=== PATIENT | female | born 1970 | race Caucasian/White ===

== ENCOUNTER → 2018-08-13 15:27 | Outpatient (CLI) | payer OTHER, SELFPAY ==
--- NOTE | 2018-08-13 15:30 | BI_ITS ---
MAMMOGRAPHY - BILATERAL SCREENING REASON FOR EXAM: Female, 48 years old. Routine annual screening examination. PERTINENT HISTORY: Non-contributory. History of bilateral breast cysts. TECHNIQUE: Digital bilateral breast len (3D mammographic acquisition) in the CC and MLO projections. 2-D mediolateral oblique (MLO) and craniocaudad (CC) views of both breasts were obtained. CAD: Full Field Digital Mammography with Computer Added Detection was performed. COMPARISON: Comparison is made with prior abdomen examination dated May 16, 2016 and April 18, 2015. FINDINGS: Breast Composition: The breasts are heterogeneously dense, which may obscure small masses. There is a 3.2 cm x 4.1 cm well-defined nodule in the superior retroareolar region of the right breast. This also evidence of a 3 cm x 2.6 cm well-defined nodule in the superior retroareolar region of the left breast. The left breast nodule as well as the right breast nodule have increased in size as compared to prior study. Correlation with ultrasound is recommended. No other significant abnormalities are identified. BI/SCREENING MAMM (CAD), BILAT IMPRESSION: Increase in size of the bilateral breast nodules as described. Correlation with ultrasound is recommended. ASSESSMENT CATEGORY: BIRADS Category 0: Incomplete. Need additional imaging evaluation. A letter regarding these results will be sent to the patient by the facility within 30 days. Approximately 10% of breast cancers are not detected by mammography. A normal mammogram should not delay biopsy of a clinically suspicious abnormality. [id number] Electronically Signed: Forrest Lawrence MD at 8:23 EST , Service support ,
== END ==
PROVIDERS: Family Provider Student in an Organized Health Care Education/Training Program; PCP Student in an Organized Health Care Education/Training Program; Referring Provider Student in an Organized Health Care Education/Training Program; Visit Provider Student in an Organized Health Care Education/Training Program
DX: Z12.31 Encounter for screening mammogram for malignant neoplasm of breast (principal)
CPT/HCPCS: 77063; 77067

== ENCOUNTER → 2018-08-18 15:01 | Outpatient (CLI) | payer OTHER, SELFPAY ==
--- NOTE | 2018-08-18 15:03 | US_ITS ---
STUDY: ULTRASOUND BREAST - RIGHT REASON FOR EXAM: Female, 48 years old. Abnormal screening mammogram. TECHNIQUE: Axial and longitudinal images of the RIGHT breast were performed with a high resolution ultrasound transducer. COMPARISON: Comparison is made with prior mammogram dated August 13, 2018. FINDINGS: RIGHT Breast: There is a 2.8 cm x 3.4 cm x 2.4 cm cyst in the retroareolar region of the right breast. This corresponds to the mammographic findings. IMPRESSION: There is a 2.8 cm x 3.4 cm x 2.4 cm cyst in the retroareolar region of the breasts. ASSESSMENT CATEGORY: BIRADS Category 2: Benign. A letter regarding these results will be sent to the patient by the facility within 30 days. Electronically Signed: Forrest Lawrence MD at 9:36 EST , Service support , STUDY: ULTRASOUND BREAST - LEFT REASON FOR EXAM: Female, 48 years old. Abnormal screening mammogram. TECHNIQUE: Axial and longitudinal images of the LEFT breast were performed with a high resolution ultrasound transducer. COMPARISON: Comparison is made with prior mammogram dated August 13, 2018. FINDINGS: LEFT Breast: There is a 2.6 cm x 2.7 cm x 1.5 cm cyst at the 2:00 position of the breast in the retroareolar region. US/Breast Limited Unilateral IMPRESSION: The mammographic abnormality corresponds to a 2.6 cm x 2.7 cm x 1.5 cm cyst. ASSESSMENT CATEGORY: BIRADS Category 2: Benign. A letter regarding these results will be sent to the patient by the facility within 30 days. Electronically Signed: Forrest Lawrence MD at 9:37 EST , Service support ,
== END ==
PROVIDERS: Family Provider Student in an Organized Health Care Education/Training Program; PCP Student in an Organized Health Care Education/Training Program; Referring Provider Student in an Organized Health Care Education/Training Program; Visit Provider Student in an Organized Health Care Education/Training Program
DX: N60.01 Solitary cyst of right breast (principal); N60.02 Solitary cyst of left breast
CPT/HCPCS: 76642

== ENCOUNTER 2022-03-28 19:05 | Emergency (ER) | payer OTHER, SELFPAY ==
[2022-03-28 19:06] VITALS: BP 160/96; PULSE 74; RESP 16; TEMP 37.1; O2SAT 100; BMI 23.5
--- NOTE | 2022-03-28 19:32 | ED.VIS.LOWEX ---
HPI History of Present Illness Chief Complaint: Laceration Detail of Chief Complaint: Injury and laceration to the right third toe Informant: patient Narrative Narrative: Patient presents the emergency department after injuring her right third toe. Patient states she dropped a water bottle full of water and ice onto her toe and she was wearing sandals. Patient went to urgent care and was referred to the ER. Patient unsure of her last tetanus shot. PFSH PFSH Home Medications cephalexin 500 mg capsule 500 mg PO Q6 #40 CAPSULES 03/28/22 [Rx Last Taken Unknown] hydrocodone-acetaminophen 5-325mg 5mg-325mg 1 tab PO Q4H PRN PRN Pain 2 days #10 TABLETS 03/28/22 [Rx Last Taken Unknown] Allergy/AdvReac Type Severity Reaction Status Date / Time No Known Allergies Allergy Verified 03/28/22 19:08 Social History Smoking Status: Never smoker ROS ROS ED Review of Systems ROS Unobtainable: other Constitutional Constitutional ED: Reports lethargy; Denies chills, fever(s), sweats or weight loss Eyes Eyes: Denies blurry vision, change in vision or diplopia ENT ENT ED: Denies rhinorrhea or sore throat Cardiovascular Cardiovascular: Denies chest pain, orthopnea or racing heartbeat Respiratory/Chest Respiratory/Chest: Denies cough, dyspnea, dyspnea on exertion, orthopnea or sputum Gastrointestinal Gastrointestinal: Denies abdominal pain, diarrhea, nausea or vomiting Genitourinary Genitourinary ED: Denies dysuria, hematuria or urinary frequency Musculoskeletal Musculoskeletal: Reports other Details: Laceration to the right third toe ; Denies arthralgias, back pain, myalgias or neck pain Integumentary Denies abscess, Abrasions or rash Neurologic Neurologic: Denies headache(s) or weakness Psychiatric Psychiatric: Denies anxiety, depression or suicidal thoughts Endocrine Endocrinology: Denies polydipsia, polyphagia or polyuria Hematologic/Lymphatic Hematologic/Lymphatic: Denies easy bleeding, easy bruising or lymphadenopathy Allergic/Immunologic Allergic/Immunologic ED: Denies mouth swelling, tongue swelling or urticaria EXAM Physical Exam Const Vital Signs: 03/28/22 19:06 Temperature 98.8 F Temperature Source Temporal Pulse Rate 74 Respiratory Rate 16 Blood Pressure 160/96 H Blood Pressure Mean 117 Pulse Ox 100 Oxygen Delivery Method Room Air Positive well nourished and well developed General Appearance ED: well developed and NAD HEENT Reports TM's clear and moist mucous membranes normocephalic and atraumatic; Negative for trauma or tenderness Tympanic Membrane ED: Yes TM's clear Eyes PERRL and EOMs intact bilaterally General Eye ED: Negative for pale conjunctiva or scleral icterus Neck no lymphadenopathy, supple and no JVD General: Negative for tenderness Chest Wall inspection of chest normal and palpation of chest normal Chest: Negative for tenderness Resp normal respiratory effort and clear to auscultation bilaterally Effort and Inspection: Negative for respiratory distress or pain with movement Auscultation: Negative for rhonchi, wheezes or diminished lung sounds Cardio regular rate, regular rhythm, S1 normal heart sound, S2 normal heart sound and no murmurs Peripheral Pulses: pulses 2+ throughout GI normal to inspection, nondistended, normoactive bowel sounds, soft to palpation, non-tender, non-distended and no masses Back/Spine no CVA tenderness and no thoracic nor lumbar tenderness Extremity Extremity Narrative: Right third toe-patient has a 2 cm laceration over the dorsum of the distal phalanx just proximal to the nail. There is bony tenderness on exam. No obvious deformity. Neurovascular intact otherwise. General Extremety ED: Negative for edema General Extremity: Negative for edema Neuro oriented x3, CN's II-XII intact bilaterally, no sensory deficits noted and gait normal Sensorium / Orientation: awake, alert, oriented to person, oriented to place and oriented to time Motor Exam: strength 5/5 throughout and strength abnormal Psych mental status grossly normal Skin no rashes or lesions noted and no wounds MDM MDM MDM Narrative Medical decision making narrative: Case was discussed with data analytics architect Dr. Kitchen given the complex nature of the laceration and open fracture. Dr. Kitchen presented to the emergency department to evaluate patient and perform definitive care and laceration repair. Please see her dictation. Given that this is an open fracture I will treat her with Keflex and patient will follow-up with podiatry. Patient will also get a postop shoe. Radiography Diagnostic Testing: Clinical Impression(s) from Imaging Studies Toe X-Ray 03/28/22 19:39 IMPRESSION: Fracture third distal phalanx Electronically Signed: Nicolas Lee MD at 20:29 EDT Reading Location ID and State: [address] [place] [address] , Service support , Three-view x-rays of the right third toe was obtained which was interpreted by myself as a comminuted fracture through the midportion of the distal phalanx. Radiology in agreement. Discharge Plan Triage Chief Complaint: Laceration ED Provider: Iftikhar Mendoza Dx/Rx/DC Orders Clinical Impression: Open fracture of third toe of right foot Instructions: ED Fracture, Toe, Open Prescriptions: New hydrocodone-acetaminophen [hydrocodone-acetaminophen] 5-325 mg tablet 1 tab PO Q4H PRN PRN (Reason: Pain) 2 Days Qty: 10 0RF cephalexin [cephalexin] 500 mg capsule 500 mg PO Q6 Qty: 40 0RF Primary Care Provider: Brandon Monet Referrals: Akila Kitchen DPM [Med Staff - Active Staff] - 10 Day for suture removal Brandon Monet DO [Primary Care Provider] - Disposition Disposition: Home, Self Care
--- NOTE | 2022-03-28 19:39 | RAD_ITS ---
STUDY: X-RAY RIGHT FOOT, THIRD TOE REASON FOR EXAM: Female, 51 years old. injury middle toe TECHNIQUE: 4 view(s) of the toe were obtained. COMPARISON: None. FINDINGS: Normal visualized metatarsus. Normal metatarsophalangeal (M.T.P) joint. Normal interphalangeal joints. Comminuted fracture distal phalanx third digit. The soft tissue structures are unremarkable. RAD/Toe(s) Min 2 Views IMPRESSION: Fracture third distal phalanx Electronically Signed: Nicolas Lee MD at 20:29 EDT ,
[2022-03-28] MEDS: Diphth,Pertuss(Acell),Tet Vac 0.5 ML Vial IM (20:06)
[2022-03-28] MEDS: Lidocaine 1% (20 ml mdv) 20 ML Vial 6 ML INFILT (20:06)
--- NOTE | 2022-03-28 20:22 | CON.PCM_ITS ---
Assessment & Plan Assessment/Plan (1) Open fracture of third toe of right foot: PLAN: Plan I reviewed and discussed her case today. She has an open fracture and laceration of the right third toe with compromise distal toe. There is no debris or foreign body. Treatment options were discussed and she elects to proceed with bedside irrigation and laceration repair. The nail appears to be intact. Her right foot x-ray was reviewed as the following: (three-view x-rays) right third toe comminuted fracture through the distal phalanx. No other fractures or foreign body or soft tissue emphysema. Overall the toe remains in a rectus position She appears stable and is afebrile with vital signs stable. Preprocedure indications, planned procedure, benefits, risk, anticipated healing time and management were reviewed. The patient understands and elects proceed with this procedure at this time. No guarantees were made. The patient understands risk and complications include but are not limited to following: pain, swelling, scarring, need for further surgery, arthritis, need for further procedure inc luding possible amputation, delayed or nonhealing, infection, blood clot, allergic reaction, loss of limb, function, or life. The informed surgical limb and consent were signed. I answered all the patient's questions. She [facility] with another provider. Consent was obtained for the following procedure: Irrigation of right third toe with repair of laceration associated with open fracture site. Local anesthetic was administered including 4 cc of 1% lidocaine plain and typical right third toe digital block fashion. This was successful. Wound was copiously irrigated with normal saline after it was cleaned with traditional Betadine preparation with a semisterile field prepared. After irrigation and wound bed investigation, aerobic, anaerobic, MRSA PCR cultures were obtained. There is no purulence or necrotic tissue noted however since this is an open fracture and this data will be kept on file in case she develops an infection in future. 3-0 Prolene was used to reapproximate the skin utilizing horizontal, simple, and Allgower our suture technique. Care was taken to avoid piercing the nail with the suture. Additional Steri-Strips were applied. Improved distal capillary refill was noted. She understands she still is at risk for infection development and loss of the toe resulting in amputation or other intervention. The following work up and care recommendations were made: Dressing: A dressing was applied consisting of Xeroform, Betadine gauze with gentle fabiola splint to adjacent second toe, Osito and Coban. Wash: To keep clean, dry, and intact until follow-up early next week at the [facility]. Offload: Heel weight-bear in surgical shoe which was fitted and dispensed today. She defers need for crutches Edema: She will alternate between dangling and elevating the foot to control edema and also to promote perfusion to the distal toe. Infection: No local signs infection noted. She will be treated with oral antibiotics per open fracture protocol; Cephalexin. Cultures were obtained and the results to be followed. Tetanus has also been updated Pain: Hydrocodone/acetaminophen prescription was provided. To take in a safe manner. I answered all the patient's questions. Thank you for the consultation. Please do not hesitate to call if you have any questions. Akila Kitchen DPM, [facility] WITH [facility] [phone] HPI Consult Data Date of Consult: 03/28/22 HPI Narrative HPI Narrative: MARAH TOVAR, is a 51 F who presents to the emergency room with a traumatic injury to the right third toe. After she was done cleaning her pool, she d ropped her full aluminum water bottle that was filled with water and ice on her toe. She reports she felt immediate pain and it felt like her toe tip was dangling there. She wrapped her toe and noted bleeding. She denies other injuries. She does have some loss of sensation to the toe. She denies known contamination or foreign body. She reports her tetanus is not up-to-date. Her pain is moderate but controlled at this time. [facility] Home Medications cephalexin 500 mg capsule 500 mg PO Q6 #40 CAPSULES 03/28/22 [Rx Last Taken Un known] hydrocodone-acetaminophen 5-325mg 5mg-325mg 1 tab PO Q4H PRN PRN Pain 2 days #10 TABLETS 03/28/22 [Rx Last Taken Unknown] Allergy/AdvReac Type Severity Reaction Status Date / Time No Known Allergies Allergy Verified 03/28/22 19:08 Social History Smoking Status: Never smoker ROS ROS Narrative Denies fever, chill, nausea, vomiting, loss of appetite, dizziness, shortness of breath or chest pain or calf pain Physical Exam Const alert and oriented x3 General Appearance: cooperative HEENT normocephalic Extremity Extremity Narrative: No calf tenderness 2/4 PT and DP pulses Muscle tone is normal pain to palpate fracture site of distal phalanx right third toe and distal toe is near amputated secondary to this trauma. no pain to palpate adjacent toes, or proximal interphalangeal joint, MPJ or foot. Skin Skin Narrative: no purulence, no streaking, no odor, no infection. Full-thickness laceration with exposed distal phalanx comminution noted. The nail was 100% adhered and intact. There is no necrosis. There is a little bit of delayed capillary refill time of less than 5 seconds to the distal toe pulp with reduced capillary fill time to less than 3 seconds after the reapproximation of the tissue and procedure. No foreign debris General Skin Exam: Negative for erythema Neuro Neuro Narrative: Epicritic sensation is intact via light touch to the distal toe after reapproximation of the toe. Psych cooperative and affect normal
[2022-03-28] MEDS: Cephalexin 250 MG Capsule 500 MG PO (21:31)
[2022-03-28 21:33] VITALS: BP 134/82; PULSE 79; RESP 16; O2SAT 97
== END 2022-03-28 21:34 | disposition home or self-care (01) ==
PROVIDERS: Emergency Provider Emergency Medicine; PCP Student in an Organized Health Care Education/Training Program; Visit Provider Emergency Medicine
DX: S92.501B Displaced unspecified fracture of right lesser toe(s), initial encounter for open fracture (principal); W22.8XXA Striking against or struck by other objects, initial encounter; S97.121A Crushing injury of right lesser toe(s), initial encounter
CPT/HCPCS: 12001; 73660; 90715; 99283

== ENCOUNTER → 2022-04-09 | Outpatient (CLI) | payer OTHER, SELFPAY | END | disposition home or self-care (01) | PROVIDERS: PCP Student in an Organized Health Care Education/Training Program; Visit Provider Podiatrist | DX: L97.512 Non-pressure chronic ulcer of other part of right foot with fat layer exposed (principal) | CPT/HCPCS: 87070; 87077; 87186; 87205 ==

== ENCOUNTER → 2022-08-23 | Outpatient (CLI) | payer OTHER, SELFPAY ==
--- NOTE | 2022-08-23 13:50 | BI_ITS ---
MAMMOGRAPHY - BILATERAL SCREENING REASON FOR EXAM: Female, 52 years old. Routine annual screening examination. PERTINENT HISTORY: Non-contributory. History of bilateral breast cysts. TECHNIQUE: Digital bilateral breast suzanne (3D mammographic acquisition) in the CC and MLO projections. 2-D mediolateral oblique (MLO) and craniocaudad (CC) views of both breasts were obtained. CAD: Full Field Digital Mammography with Computer Added Detection was performed. COMPARISON: Comparison is made with prior abdomen examination 04/26/2021 and 08/13/2018.. FINDINGS: Breast Composition: The breasts are heterogeneously dense, which may obscure small masses. There is a 1.9 cm x 2 cm well-defined nodule in the retroareolar region of the right breast. This is essentially unchanged as compared to prior study. No other significant abnormalities are identified. There has been no significant change since the prior study. BI/SCRN MAMM (CAD)W/SUZANNE BILAT IMPRESSION: Stable bilateral screening mammogram. Yearly follow-up mammogram recommended. (A) ASSESSMENT CATEGORY: BIRADS Category 2: Benign. A letter regarding these results will be sent to the patient by the facility within 30 days. Approximately 10% of breast cancers are not detected by mammography. A normal mammogram should not delay biopsy of a clinically suspicious abnormality. [id number] Electronically Signed: Forrest Lawrence MD at 12:49 EST ,
== END | disposition home or self-care (01) ==
LOC: OPBI 13:47
PROVIDERS: PCP Student in an Organized Health Care Education/Training Program; Referring Provider Nurse Practitioner Family; Visit Provider Nurse Practitioner Family
DX: Z12.31 Encounter for screening mammogram for malignant neoplasm of breast (principal)
CPT/HCPCS: 77063; 77067

== ENCOUNTER → 2023-11-28 | Outpatient (CLI) | payer OTHER, SELFPAY ==
--- NOTE | 2023-11-28 08:30 | BI_ITS ---
MAMMOGRAPHY - BILATERAL SCREENING REASON FOR EXAM: Female, 53 years old. Routine annual screening examination. PERTINENT HISTORY: Non-contributory. TECHNIQUE: Digital bilateral breast suzanne (3D mammographic acquisition) in the CC and MLO projections. 2-D mediolateral oblique (MLO) and craniocaudad (CC) views of both breasts were obtained. CAD: Full Field Digital Mammography with Computer Added Detection was performed. COMPARISON: Comparison is made with prior study dated August 23, 2022 and August 13, 2018. FINDINGS: Breast Composition: The breasts are heterogeneously dense, which may obscure small masses. The previously seen well-defined nodule in the retroareolar region of the right breast has decreased in size. It presently measures 1.3 cm x 1.1 cm. This most likely represents a cyst. No other significant abnormalities are identified. BI/SCRN MAMM (CAD)W/SUZANNE BILAT IMPRESSION: Interval decrease in size of the previously seen right retroareolar nodule. Stable appearance of the bilateral axillary lymph nodes. Yearly follow-up mammogram recommended. (A) ASSESSMENT CATEGORY: BIRADS Category 2: Benign. A letter regarding these results will be sent to the patient by the facility within 30 days. Approximately 10% of breast cancers are not detected by mammography. A normal mammogram should not delay biopsy of a clinically suspicious abnormality. [id number] Electronically Signed: Forrest Lawrence MD at 9:18 EDT ,
== END | disposition home or self-care (01) ==
PROVIDERS: PCP Student in an Organized Health Care Education/Training Program; Referring Provider Nurse Practitioner Family; Visit Provider Nurse Practitioner Family
DX: Z12.31 Encounter for screening mammogram for malignant neoplasm of breast (principal)
CPT/HCPCS: 77063; 77067

== ENCOUNTER 2024-05-30 12:13 | Emergency (ER) | payer OTHER, SELFPAY ==
[2024-05-30 12:15] VITALS: BP 221/111; PULSE 97; RESP 16; TEMP 36.6; O2SAT 98; BMI 24.1
[2024-05-30 13:26] LABS: Bacteria 0 SEEN /hpf (None Seen); Mucous, Urine 0 SEEN /hpf (<or=2+); Red Blood Cells-Urine 0 SEEN /hpf (0-5); Squamous Epithelial Cells - UA 0 SEEN /hpf (5-10); White Blood Cells 0 SEEN /hpf (0-5)
[2024-05-30 13:28] VITALS: BP 175/94; PULSE 76; RESP 14; O2SAT 96
[2024-05-30 13:29] LABS: Absolute Lymphocyte Count 0.88 X10^3/uL (0.83-4.51); Absolute Neutrophil Count 3.1 X10^3/uL (2.0-7.7); Basophil# 0.03 X10^3/uL; Basophil% 0.7 % (0-1); Eosinophils% 2.2 % (0-5); Hematocrit 37.1 % (37-47); Hemoglobin 12.8 g/dL (12.0-15.0); Lymphocyte # 0.88 X10^3/ul (0.83-4.51); Lymphocyte % 19.3 % (19-41); Mean Corp Hgb Conc 34.5 g/dL (32-36); Mean Corpuscular Hgb 32.6 pg (27.0-32.0); Mean Corpuscular Volume 94.4 fL (81-99); Mean Platelet Vol. 9.2 fl (6.2-12.0); Monocyte% 8.8 % (0-10); NRBC Flagged by Analyzer 0 % (0-5); Neutrophil # 3.14 X10^3/uL (2.7-7.7); Neutrophil % 68.6 % (47-70); Platelet Count 270 K/mm3 (150-450); RBC Distribution Width SD 42.4 fl (35.1-43.9); Red Blood Count 3.93 M/mm3 (4.2-5.4); White Blood Count 4.6 K/mm3 (4.4-11.0)
[2024-05-30 13:30] LABS: Color, Urine Yellow (Yellow); Glucose, Dipstick Normal (Normal); Ketone-Dipstick Negative (Negative); Leukocyte Esterase-Dipstick Negative /ul (Negative); Nitrite-Dipstick Negative (Negative); Occult Blood-Urine Negative /ul (Negative); Protein-Dipstick Negative (Negative); Urine Bilirubin Dipstick Negative (Negative); Urine Clarity Clear (Clear); Urine Urobilinogen Normal (Normal)
[2024-05-30 13:47] LABS: ALB/GLOB Ratio 1.1 RATIO (0.9-2.4); AST(SGOT) 20 U/L (15-37); Alanine Aminotransfer ALT/SGPT 24 U/L (13-56); Albumin, Serum 3.8 g/dL (3.2-5.0); Alkaline Phosphatase 96 U/L (45-117); Anion Gap 7 (5-15); BUN 8 mg/dL (7-18); BUN/Creat Ratio 10.7 RATIO (10-20); Calcium,Total 9.2 mg/dL (8.5-10.1); Chloride 100 mmol/L (98-107); Creatinine, Serum 0.74 mg/dL (0.55-1.02); EST Glomerular Filtration Rate 86 mL/min (>60); Est Glom Filt Rate - Afr Amer 104 mL/min (>60); Estimated Creatinine Clearance 84.52 ml/min; Globulin 3.4 g/dL (2.2-4.2); Glucose 90 mg/dL (74-106); Potassium 3.8 mmol/L (3.5-5.1); Protein, Total 7.2 g/dL (6.4-8.2); Sodium Level 133 mmol/L (136-145); Troponin-I HS 4 pg/mL (3.0-54.0)
[2024-05-30 14:14] VITALS: BP 171/86; PULSE 72; RESP 15; TEMP 36.3; O2SAT 99
== END 2024-05-30 14:14 | disposition home or self-care (01) ==
PROVIDERS: Nurse Practitioner; Emergency Provider Surgery; PCP Student in an Organized Health Care Education/Training Program; Visit Provider Surgery
DX: I10 Essential (primary) hypertension (principal); I16.0 Hypertensive urgency; Z79.899 Other long term (current) drug therapy
CPT/HCPCS: 71046; 80053; 81001; 84484; 85025; 93005; 99283; A4216

== ENCOUNTER 2024-08-07 17:39 | Emergency (ER) | payer OTHER, SELFPAY ==
[2024-08-07 17:39] VITALS: BP 177/99; PULSE 69; RESP 16; TEMP 36.2; O2SAT 97; BMI 24.5
--- NOTE | 2024-08-07 17:57 | EKG12_ITS ---
Test Reason : DIZZINESS Blood Pressure : */* mmHG Vent. Rate : 60 BPM Atrial Rate : 60 BPM P-R Int : 166 ms QRS Dur : 80 ms QT Int : 436 ms P-R-T Axes : 22 62 58 degrees QTcB Int : 436 ms Normal sinus rhythm Septal infarct , age undetermined Abnormal ECG Confirmed by MIRTA PECK, TAYLA ([id number]), subeditor UMESH GILBERT ([id number]) on 08/09/2024 10:50:43 A M Referred By: Confirmed By: TAYLA KIRBY MD
--- NOTE | 2024-08-07 18:00 | EDS_ITS ---
HPI History of Present Illness Chief Complaint: Hypertension Narrative Narrative: Chief complaint and HPI: HTN. 54-year-old female with uncontrolled hypertension presents for evaluation of hypertension. Patient states that she has been struggling with hypertension since last fall. She states she has been on multiple medications without control. Originally was on lisinopril and switched to amlodipine now is on losartan 50 mg daily. Patient states that her losartan was just increased to 50 mg daily last week. She states she has been monitoring her blood pressure all week and it has been elevated. The highest SBP was in the 200s. Patient states she called her PCPs office today and they told her to take an extra losartan. She took 100 mg of losartan at 9 AM. Patient states they advised her to go to the emergency department. She states she has intermittently had a headache. She denies any fever, chills, chest pain, shortness of breath, abdominal pain, nausea, vomiting, bilateral lower extremity swelling or or pain. Currently is asymptomatic. Review of systems: See HPI Medications: As listed on the chart Allergies: As listed on the chart PFSH: Per chart Vital signs: As listed on the chart. Reviewed. Physical exam: Gen: A&O x3, NAD Head: Normocephalic, atraumatic Eyes: No sclera icterus, conjunctiva clear ENT: Moist mucous membranes Neck: Trachea midline, No JVD CV: RRR, no murmurs, no peripheral edema Resp: Lungs CTA BL, no w/r/c GI: Abd soft, non-distended, non-tender, no r/r/g Musc: Full ROM, no deformity Skin: Warm, dry Neuro: Alert, oriented, grossly intact, sensation intact Psych: Cooperative, appropriate mood and affect PFS PFS Medical History (Updated 08/07/24 @ 18:32 by Lalita Winchester) Hypertension Home Medications ?Medication ?Instructions ?Recorded ?Last Taken ?Type fluoxetine 40 mg capsule 40 mg PO DAILY 05/30/24 Unknown History losartan 50 mg tablet 50 mg PO DAILY 08/07/24 Unknown History Allergy/AdvReac Type Severity Reaction Status Date / Time No Known Allergies Allergy Verified 05/30/24 12:18 Surgical History (Updated 08/07/24 @ 18:32 by Lalita Winchester) H/O: hysterectomy Social History Smoking Status: Never smoker EXAM Physical Exam Const Vital Signs: 08/07/24 17:39 08/07/24 18:34 08/07/24 18:59 Temperature 97.1 F L Temperature Source Temporal Pulse Rate 69 Respiratory Rate 16 Respiratory Effort Normal Respiratory Pattern Normal Blood Pressure 177/99 H 158/87 H Blood Pressure Mean 125 110 Pulse Ox 97 Oxygen Delivery Method Room Air MDM MDM MDM Narrative Medical decision making narrative: 54-year-old female with uncontrolled hypertension presents for evaluation of hypertension. Differential diagnosis includes but is not limited to hypertension urgency, hypertensive emergency. Patient's blood pressure on arrival was 177/99 otherwise vitals are stable. She is currently asymptomatic. Will give 5 mg IV hydralazine. Will obtain basic labs with chest x-ray to assess for hypertensive emergency. EKG and chest x-ray reviewed see below. CBC without leukocytosis or anemia. BMP relatively unremarkable. No GLORIA. Troponin unremarkable. Patient not having any chest pain therefore I do not think delta troponin is needed at this time. Patient's symptoms are consistent with hypertension urgency. Repeat blood pressure is 158/87. Patient is stable to discharge home. Patient was educated on continuing the losartan at 100 mg daily. Will also give her prescription for clonidine as needed for SBP greater than 175. Follow-up with PCP. Return precautions explained. Monitor blood pressure at home. She confirmed understanding the plan. Patient stable to discharge home. EKG: Interpreted by me/EM physician: EKG shows normal sinus rhythm without any acute ischemic changes. Heart rate 60. This was compared to her previous EKG and similar. Diagnostic: Interpreted by me/EM physician: Chest x-ray without pneumonia, effusion, cardiomegaly, pneumothorax Impression: 1. Hypertension urgency 2. History of hypertension, uncontrolled Lab Data Labs: Laboratory Results - last 24 hr 08/07/24 18:23 WBC 4.9 RBC 3.77 L Hgb 12.2 Hct 35.4 L MCV 93.9 MCH 32.4 H MCHC 34.5 RDW Std Deviation 43.8 RDW Coeff of Mehran 12.6 Plt Count 273 MPV 9.0 Immature Gran % (Auto) 0.000 Neut % (Auto) 57.4 Lymph % (Auto) 31.5 Jennings % (Auto) 7.4 Eos % (Auto) 2.7 Baso % (Auto) 1.0 Absolute Neuts (auto) 2.8 Absolute Lymphs (auto) 1.53 Nucleated RBC % 0 Sodium 134 L Potassium 3.6 Chloride 101 Carbon Dioxide 25.0 Anion Gap 8 BUN 8 Creatinine 0.76 Estim Creat Clear Calc 82.29 Est GFR (MDRD) Af Amer 102 Est GFR (MDRD) Non-Af 85 BUN/Creatinine Ratio 10.6 Glucose 79 Calcium 9.7 Troponin I High Sens 4 Discharge Plan Triage Chief Complaint: Hypertension ED Provider: Karl العراقي Dx/Rx/DC Orders Prescriptions: No Action losartan 50 mg tablet 50 mg PO DAILY fluoxetine 40 mg capsule 40 mg PO DAILY Primary Care Provider: Brandon Monet Referrals: Brandon Monet DO [Primary Care Provider] - Print Language: Stateless
--- NOTE | 2024-08-07 18:20 | RAD_ITS ---
EXAM: XR CHEST, 1 VIEW CLINICAL INDICATION: Hypertension TECHNIQUE: Frontal view of the chest. COMPARISON: 05/30/2024 FINDINGS: LUNGS AND PLEURAL SPACES: Unremarkable. No consolidation or edema. No pneumothorax. No effusion. HEART: Unremarkable. Cardiac silhouette not enlarged. MEDIASTINUM: Central airways and mediastinal contour are unremarkable. BONES/JOINTS: Unremarkable. No acute fracture. SOFT TISSUES: Unremarkable. RAD/Chest 1 View (Portable) IMPRESSION: No radiographic evidence of acute cardiopulmonary disease. Electronically Signed: Raoul Miller MD at 19:55 EST ,
[2024-08-07 18:28] LABS: Absolute Lymphocyte Count 1.53 X10^3/uL (0.83-4.51); Absolute Neutrophil Count 2.8 X10^3/uL (2.0-7.7); Basophil# 0.05 X10^3/uL; Eosinophil# 0.13 X10^3/uL; Eosinophils% 2.7 % (0-5); Hematocrit 35.4 % (37-47); Hemoglobin 12.2 g/dL (12.0-15.0); Lymphocyte # 1.53 X10^3/ul (0.83-4.51); Lymphocyte % 31.5 % (19-41); Mean Corp Hgb Conc 34.5 g/dL (32-36); Mean Corpuscular Hgb 32.4 pg (27.0-32.0); Mean Corpuscular Volume 93.9 fL (81-99); Monocyte# 0.36 X10^3/uL; Monocyte% 7.4 % (0-10); NRBC Flagged by Analyzer 0 % (0-5); Neutrophil # 2.79 X10^3/uL (2.7-7.7); Neutrophil % 57.4 % (47-70); Platelet Count 273 K/mm3 (150-450); RBC Distribution Width CV 12.6 % (11.6-14.6); RBC Distribution Width SD 43.8 fl (35.1-43.9); Red Blood Count 3.77 M/mm3 (4.2-5.4); White Blood Count 4.9 K/mm3 (4.4-11.0)
[2024-08-07] MEDS: hydrALAZINE 20 MG/ML Vial 5 MG IV (18:29)
[2024-08-07 18:49] LABS: Anion Gap 8 (5-15); BUN 8 mg/dL (7-18); BUN/Creat Ratio 10.6 RATIO (10-20); Calcium,Total 9.7 mg/dL (8.5-10.1); Chloride 101 mmol/L (98-107); Creatinine, Serum 0.76 mg/dL (0.55-1.02); EST Glomerular Filtration Rate 85 mL/min (>60); Est Glom Filt Rate - Afr Amer 102 mL/min (>60); Estimated Creatinine Clearance 82.29 ml/min; Glucose 79 mg/dL (74-106); Potassium 3.6 mmol/L (3.5-5.1); Sodium Level 134 mmol/L (136-145); Troponin-I HS 4 pg/mL (3.0-54.0)
[2024-08-07 18:59] VITALS: BP 158/87
[2024-08-07 19:33] VITALS: BP 154/85
== END 2024-08-07 19:33 | disposition home or self-care (01) ==
PROVIDERS: Emergency Provider Surgery; PCP Student in an Organized Health Care Education/Training Program; Visit Provider Surgery
DX: I10 Essential (primary) hypertension (principal); Z90.710 Acquired absence of both cervix and uterus; Z79.899 Other long term (current) drug therapy; I16.0 Hypertensive urgency
CPT/HCPCS: 71045; 80048; 84484; 85025; 93005; 96374; 99284; A4216

== ENCOUNTER 2024-10-08 12:41 | Inpatient (IN) | payer OTHER, SELFPAY ==
[2024-10-08] VITALS (8 sets, daily range): BP systolic 106–161; BP diastolic 59–94; PULSE 65–80; RESP 11–18; TEMP 36–36.8; O2SAT 98–100; BMI 23.4; BMI 23.3
--- NOTE | 2024-10-08 13:37 | EX.ED.DYSGE1 ---
HPI History of Present Illness Chief Complaint: Abn Labs Detail of Chief Complaint: Abnormal labs Narrative Narrative: Patient presents to the emergency department complaint of abnormal labs today. Patient states that she has been dealing with elevated blood pressure since April. She was referred to a field installer whom she had a virtual visit with 2 days ago. She had lab workup ordered which she had drawn yesterday and today she was called and told to come to the ER because her potassium and her sodium were low. Patient describes feeling generally weak. She has had a cough for some time for which she was recently treated with Tessalon Perles and Augmentin. She is currently on chlorthalidone and started spironolactone and doxazosin yesterday. Patient also takes losartan 100 mg daily. Denies diarrhea. She states that her cough sometimes causes her to vomit [facility] Medical History (Updated 10/08/24 @ 14:[address] Iftikhar Mendoza, ) Hypertension Medical History no medical history Home Medications ?Medication ?Instructions ?Recorded ?Last Taken ?Type fluoxetine 40 mg capsule 40 mg PO DAILY 05/30/24 Unknown History clonidine HCl 0.1 mg tablet 0.1 mg PO Q8H PRN hypertension 2 08/07/24 Unknown Rx days #6 tabs losartan 50 mg tablet 50 mg PO DAILY 08/07/24 Unknown History Allergy/AdvReac Type Severity Reaction Status Date / Time amlodipine AdvReac Intermediate edema Verified 10/08/24 12:43 lisinopril AdvReac Mild cough Verified 10/08/24 12:43 Family History no significant family his Surgical History (Updated 08/07/24 @ 18:32 by Lalita Winchester) H/O: hysterectomy Surgical History no surgical history Social History Smoking Status: Never smoker ROS ROS ED Review of Systems ROS Unobtainable: other Constitutional Constitutional ED: Reports lethargy; Denies chills, fever(s), sweats or weight loss Eyes Eyes: Denies blurry vision, change in vision or diplopia ENT ENT ED: Denies rhinorrhea or sore throat Cardiovascular Cardiovascular: Denies chest pain, orthopnea or racing heartbeat Respiratory/Chest Respiratory/Chest: Reports cough; Denies dyspnea, dyspnea on exertion, orthopnea or sputum Gastrointestinal Gastrointestinal: Denies abdominal pain, diarrhea, nausea or vomiting Genitourinary Genitourinary ED: Denies dysuria, hematuria or urinary frequency Musculoskeletal Musculoskeletal: Denies arthralgias, back pain, myalgias or neck pain Integumentary Denies abscess, Abrasions or rash Neurologic Neurologic: Reports weakness; Denies headache(s) Psychiatric Psychiatric: Denies anxiety, depression or suicidal thoughts Endocrine Endocrinology: Denies polydipsia, polyphagia or polyuria Hematologic/Lymphatic Hematologic/Lymphatic: Denies easy bleeding, easy bruising or lymphadenopathy Allergic/Immunologic Allergic/Immunologic ED: Denies mouth swelling, tongue swelling or urticaria EXAM Physical Exam Const Vital Signs: 10/08/24 12:43 10/08/24 13:41 10/08/24 13:58 Temperature 96.8 F L Temperature Source Temporal Pulse Rate 80 70 Respiratory Rate 18 16 Respiratory Pattern Normal Blood Pressure 147/94 H 144/75 H Blood Pressure Mean 111 98 Pulse Ox 98 98 Oxygen Delivery Method Room Air Room Air 10/08/24 14:00 Temperature Temperature Source Pulse Rate 72 Respiratory Rate 11 L Respiratory Pattern Blood Pressure Blood Pressure Mean Pulse Ox 98 Oxygen Delivery Method Positive well nourished and well developed General Appearance ED: well developed and NAD HEENT Reports TM's clear and moist mucous membranes normocephalic and atraumatic; Negative for trauma or tenderness Tympanic Membrane ED: Yes TM's clear Eyes PERRL and EOMs intact bilaterally General Eye ED: Negative for pale conjunctiva or scleral icterus Neck no lymphadenopathy, supple and no JVD General: Negative for tenderness Chest Wall inspection of chest normal and palpation of chest normal Chest: Negative for tenderness Resp normal respiratory effort and clear to auscultation bilaterally Effort and Inspection: Negative for respiratory distress or pain with movement Auscultation: Negative for rhonchi, wheezes or diminished lung sounds Cardio regular rate, regular rhythm, S1 normal heart sound, S2 normal heart sound and no murmurs Peripheral Pulses: pulses 2+ throughout GI normal to inspection, nondistended, normoactive bowel sounds, soft to palpation, non-tender, non-distended and no masses Back/Spine no CVA tenderness and no thoracic nor lumbar tenderness Extremity normal to inspection General Extremety ED: Negative for edema General Extremity: Negative for edema Neuro oriented x3, CN's II-XII intact bilaterally, no sensory deficits noted and gait normal Sensorium / Orientation: awake, alert, oriented to person, oriented to place and oriented to time Motor Exam: strength 5/5 throughout and strength abnormal Psych mental status grossly normal Skin no rashes or lesions noted and no wounds MDM MDM MDM Narrative Medical decision making narrative: Patient presents with concern for low sodium and potassium. Had blood work done yesterday as an outpatient. She is on chlorthalidone that she has been on since August for elevated blood pressures. IV established. CBC with differential white count 4.8 with hemoglobin 12.4 platelet count of 297. Chemistry showed a potassium of 2.5 and a sodium of 117. BUN 8 and creatinine 0.66. Urinalysis normal. 1 view chest x-ray unremarkable. Patient was ordered potassium chloride 40 mill equivalents p.o. Patient also ordered a liter normal same fluid bolus. Case will be discussed with hospitalist to evaluate patient for admission for hyponatremia and hypokalemia. Lab Data Attestation: I reviewed the patient's lab results. Labs: Laboratory Results - last 24 hr 10/08/24 10/08/24 14:01 14:03 WBC 4.8 RBC 3.79 L Hgb 12.4 Hct 33.4 L MCV 88.1 MCH 32.7 H MCHC 37.1 H RDW Std Deviation 36.2 RDW Coeff of Mehran 11.3 L Plt Count 297 MPV 8.7 Immature Gran % (Auto) 0.400 Neut % (Auto) 64.1 Lymph % (Auto) 25.9 [place] % (Auto) 7.1 Eos % (Auto) 1.9 Baso % (Auto) 0.6 Absolute Neuts (auto) 3.1 Absolute Lymphs (auto) 1.24 Nucleated RBC % 0 Sodium 117 L* Potassium 2.5 L* Chloride 78 L Carbon Dioxide 25.6 Anion Gap 13 BUN 8 Creatinine 0.66 L Estim Creat Clear Calc 94.76 Est GFR (MDRD) Non-Af 104 BUN/Creatinine Ratio 12.2 Glucose 106 H Calcium 10.1 Magnesium 2.1 Urine Color Yellow Urine Clarity Clear Urine pH 8.0 Ur Specific [place] 1.010 Urine Protein Negative Urine Glucose (UA) Normal Urine Ketones Negative Urine Occult Blood Negative Urine Nitrite Negative Urine Bilirubin Negative Urine Urobilinogen Normal Ur Leukocyte Esterase Negative Urine RBC 0-5 SEEN Urine WBC 0-5 SEEN Ur Squamous Epith Cells 0-5 SEEN Urine Bacteria 0 SEEN Urine Mucus 0 SEEN Radiography Diagnostic Testing: Clinical Impression(s) from Imaging Studies Chest X-Ray 10/08/24 14:15 IMPRESSION: No acute cardiopulmonary process. Reading Location: [facility] Normal sinus rhythm Discharge Plan Dx/Rx/DC Orders Clinical Impression: Acute hyponatremia, Acute hypokalemia Disposition Disposition: Acute Care Hospital [facility]
[2024-10-08] MEDS: 0.9% Normal Saline (1000mL) 1,000 ML 1000 ML IV (14:00)
[2024-10-08 14:06] LABS: Bacteria 0 SEEN /hpf (None Seen); Mucous, Urine 0 SEEN /hpf (<or=2+)
[2024-10-08 14:13] LABS: Color, Urine Yellow (Yellow); Glucose, Dipstick Normal (Normal); Ketone-Dipstick Negative (Negative); Leukocyte Esterase-Dipstick Negative /ul (Negative); Nitrite-Dipstick Negative (Negative); Occult Blood-Urine Negative /ul (Negative); Protein-Dipstick Negative (Negative); Urine Bilirubin Dipstick Negative (Negative); Urine Clarity Clear (Clear); Urine Urobilinogen Normal (Normal)
--- NOTE | 2024-10-08 14:15 | RAD_ITS ---
EXAM: XR Chest, 1 View CLINICAL INDICATION: COUGH TECHNIQUE: Frontal view of the chest. COMPARISON: No relevant prior studies available. FINDINGS: LUNGS AND PLEURAL SPACES: Unremarkable. No consolidation. No pneumothorax. HEART: Unremarkable. No cardiomegaly. MEDIASTINUM: Unremarkable. Normal mediastinal contour. BONES/JOINTS: Unremarkable. No acute fracture. RAD/Chest 1 View (Portable) IMPRESSION: No acute cardiopulmonary process. Reading [facility]
[2024-10-08 14:23] LABS: Absolute Lymphocyte Count 1.24 X10^3/uL (0.83-4.51); Absolute Neutrophil Count 3.1 X10^3/uL (2.0-7.7); Basophil# 0.03 X10^3/uL; Basophil% 0.6 % (0-1); Eosinophil# 0.09 X10^3/uL; Eosinophils% 1.9 % (0-5); Hematocrit 33.4 % (37-47); Hemoglobin 12.4 g/dL (12.0-15.0); Lymphocyte # 1.24 X10^3/ul (0.83-4.51); Lymphocyte % 25.9 % (19-41); Mean Corp Hgb Conc 37.1 g/dL (32-36); Mean Corpuscular Hgb 32.7 pg (27.0-32.0); Mean Corpuscular Volume 88.1 fL (81-99); Mean Platelet Vol. 8.7 fl (6.2-12.0); Monocyte# 0.34 X10^3/uL; Monocyte% 7.1 % (0-10); NRBC Flagged by Analyzer 0 % (0-5); Neutrophil # 3.07 X10^3/uL (2.7-7.7); Neutrophil % 64.1 % (47-70); Platelet Count 297 K/mm3 (150-450); RBC Distribution Width CV 11.3 % (11.6-14.6); RBC Distribution Width SD 36.2 fl (35.1-43.9); Red Blood Count 3.79 M/mm3 (4.2-5.4); White Blood Count 4.8 K/mm3 (4.4-11.0)
[2024-10-08 14:35] LABS: Magnesium 2.1 mg/dL (1.5-2.2)
[2024-10-08 14:37] LABS: Squamous Epithelial Cells - UA 0-5 SEEN /hpf (5-10); White Blood Cells 0-5 SEEN /hpf (0-5)
[2024-10-08 14:38] LABS: Red Blood Cells-Urine 0-5 SEEN /hpf (0-5)
[2024-10-08 14:48] LABS: Anion Gap 13 (5-15); BUN 8 mg/dL (4-19); BUN/Creat Ratio 12.2 RATIO (10-20); Calcium,Total 10.1 mg/dL (7.6-11.0); Carbon Dioxide 25.6 mmol/L (21.0-32.0); Chloride 78 mmol/L (98-108); Creatinine, Serum 0.66 mg/dL (0.70-1.20); EST Glomerular Filtration Rate 104 (>60); Estimated Creatinine Clearance 94.76 ml/min (50-250); Glucose 106 mg/dL (70-99); Potassium 2.5 mmol/L (3.3-5.1); Sodium Level 117 mmol/L (133-145)
--- NOTE | 2024-10-08 14:51 | ED.RN ---
Dr Beal notified of critical sodium.
--- NOTE | 2024-10-08 14:55 | EKG12_ITS ---
Test Reason : HTN Blood Pressure : */* mmHG Vent. Rate : 64 BPM Atrial Rate : 64 BPM P-R Int : 188 ms QRS Dur : 92 ms QT Int : 488 ms P-R-T Axes : 42 69 74 degrees QTcB Int : 503 ms Normal sinus rhythm Prolonged QT Abnormal ECG Confirmed by GURU PECK, KAI ([id number]), magazine editor UMESH GILBERT ([id number]) on 10/11/2024 6:46:08 AM Referred By: Confirmed By: KAI GARVEY MD
--- NOTE | 2024-10-08 14:58 | PCM.HP.STD ---
HPI - General General Date of Admission: 10/08/24 Date of Service: 10/08/24 Chief Complaint: Abnormal labs HPI Narrative MARAH TOVAR, is a 54 F who presented to [facility] ED on 10/08/2024 with abnormal outpatient labs. Patient was found on BMP to have a sodium of 117 and potassium of 2.5. Last sodium was 134 on 08/07/24, has no prior history of hyponatremia. Patient has been following with nephrology since April for resistant hypertension. Secondary hypertension workup has been negative. She has had several medication changes since April. She was recently started on chlorthalidone 25 mg daily in early to mid August, and dose was then up to 50 mg daily in early September. She reports lightheadedness with mental fogginess and headache over the past few weeks. Today she feels similar to previous days but she is alert and oriented x 3 and conversing normally. Given no acute mental status change noted, she was given 1 L of normal saline and potassium supplementation, and hospitalist was contacted for admission. I saw the patient at bedside in the ED. Patient was very pleasant and sitting back comfortably in bed, conversing normally and in no acute distress. She stated that she felt slightly better after receiving the IV fluids earlier. She otherwise feels well, denies any acute pain or discomfort. No other acute concerns at this time. [facility] Medical History (Updated 10/08/24 @ 16:[address] Jonathan Brasher, ) Hypertension Medical History no medical history Home Medications ?Medication ?Instructions ?Recorded ?Last Taken ?Type fluoxetine 40 mg capsule 40 mg PO DAILY 05/30/24 10/08/24 History artifi.tears(hypromellose)(PF) 1.7 1 drp EACH EYE DAILY PRN dry eye(s) 10/08/24 10/08/24 History % eye drops with applicator [id number] 333 mg-133 3 tab PO BID 10/08/24 10/08/24 History mg-5 mg tablet chlorthalidone 25 mg tablet 25 mg PO DAILY 10/08/24 10/08/24 History doxazosin 1 mg tablet 1 mg PO QHS 10/08/24 10/07/24 History famotidine 20 mg tablet (Acid 20 mg PO BID 10/08/24 10/08/24 History Controller) losartan 100 mg tablet 100 mg PO DAILY 10/08/24 10/08/24 History spironolactone 25 mg tablet 25 mg PO BID 10/08/24 10/08/24 History Allergy/AdvReac Type Severity Reaction Status Date / Time amlodipine AdvReac Intermediate edema Verified 10/08/24 12:43 lisinopril AdvReac Mild cough Verified 10/08/24 12:43 Family History no significant family his Surgical History (Updated 08/07/24 @ 18:32 by Lalita Winchester) H/O: hysterectomy Surgical History no surgical history Social History Smoking Status: Never smoker ROS Constitutional Constitutional: Denies chills, fatigue, fever(s) or weakness Eyes Eyes: Denies change in vision Cardiovascular Cardiovascular: Denies chest pain Respiratory/Chest Respiratory/Chest: Denies cough or shortness of breath at rest Gastrointestinal Gastrointestinal: Denies abdominal pain, constipation, diarrhea, nausea or vomiting Genitourinary Genitourinary: Denies dysuria Musculoskeletal Musculoskeletal: Denies arthralgias or myalgias Neurologic Neurologic: Reports headache(s); Denies dizziness Vital Signs Vital Signs Vital Signs: 10/08/24 12:43 10/08/24 13:41 10/08/24 13:58 Temperature 96.8 F L Temperature Source Temporal Pulse Rate 80 70 Respiratory Rate 18 16 Respiratory Pattern Normal Blood Pressure 147/94 H 144/75 H Blood Pressure Mean 111 98 Pulse Ox 98 98 Oxygen Delivery Method Room Air Room Air 10/08/24 14:00 Temperature Temperature Source Pulse Rate 72 Respiratory Rate 11 L Respiratory Pattern Blood Pressure Blood Pressure Mean Pulse Ox 98 Oxygen Delivery Method Weight Weight: 67.948 kg Body Mass Index (BMI) 23.4 Physical Exam Const alert, oriented x3, no apparent distress, average body habitus, healthy appearing and well nourished Constitutional Narrative: Pleasant middle-age female, sitting back comfortably in bed, conversing normally, in no acute distress. General Appearance: cooperative, comfortable, well kempt and well developed HEENT normocephalic, head/scalp atraumatic, hearing grossly normal bilaterally, nasal mucous membranes and turbinates normal and moist oral mucous membranes Eyes PERRL, EOMs intact bilaterally and conjunctivae normal Neck full ROM Chest inspection of chest normal Resp normal respiratory effort, normal air movement, no use of accessory muscles and clear to auscultation bilaterally Cardio regular rate, regular rhythm, no murmurs and peripheral pulses 2+ throughout GI normal to inspection, nondistended, normoactive bowel sounds, soft to palpation, non-tender and non-distended Back/Spine normal ROM Extremity normal to inspection, full ROM and no pedal edema Skin no rashes or lesions noted Neuro moves all extremities and no focal motor deficits Speech: speech normal Motor Exam: strength 5/5 throughout Psych mental status grossly normal Results Lab / Micro Data 10/08/24 14:03 10/08/24 14:03 Labs: Laboratory Results - last 24 hr 10/08/24 14:01: Urine Color Yellow, Urine Clarity Clear, Urine pH 8.0, Ur Specific [place] 1.010, Urine Protein Negative, Urine Glucose (UA) Normal, Urine Ketones Negative, Urine Occult Blood Negative, Urine Nitrite Negative, Urine Bilirubin Negative, Urine Urobilinogen Normal, Ur Leukocyte Esterase Negative, Urine RBC 0-5 SEEN, Urine WBC 0-5 SEEN, Ur Squamous Epith Cells 0-5 SEEN, Urine Bacteria 0 SEEN, Urine Mucus 0 SEEN 10/08/24 14:03: WBC 4.8, RBC 3.79 L, Hgb 12.4, Hct 33.4 L, MCV 88.1, MCH 32.7 H, MCHC 37.1 H, RDW Std Deviation 36.2, RDW Coeff of Mehran 11.3 L, Plt Count 297, MPV 8.7, Immature Gran % (Auto) 0.400, Neut % (Auto) 64.1, Lymph % (Auto) 25.9, [place] % (Auto) 7.1, Eos % (Auto) 1.9, Baso % (Auto) 0.6, Absolute Neuts (auto) 3.1, Absolute Lymphs (auto) 1.24, Nucleated RBC % 0, Sodium 117 L*, Potassium 2.5 L*, Chloride 78 L, Carbon Dioxide 25.6, Anion Gap 13, BUN 8, Creatinine 0.66 L, Estim Creat Clear Calc 94.76, Est GFR (MDRD) Non-Af 104, BUN/Creatinine Ratio 12.2, Glucose 106 H, Calcium 10.1, Magnesium 2.1 Imaging Radiology Impression Chest X-Ray 10/08/24 14:15 IMPRESSION: No acute cardiopulmonary process. Reading Location: [facility] Assessment & Plan Assessment/Plan (1) Acute hyponatremia: (2) Acute hypokalemia: (3) Hypertension: PLAN: Plan Patient is a 54-year-old female who presented to [facility] ED on 10/08/2024 with abnormal outpatient labs. 1. Severe hyponatremia ? Admit under patient status to PCU. Sodium 117, chloride 78 on admit. Baseline sodium around 135. No acute mental status change noted, no need for hypertonic saline. Strongly suspect this is secondary to chlorthalidone that was started a little over 1 month ago. Urine sodium, urine osmolality and serum osmolality ordered for further evaluation. Has been on her SSRI for 10 to 15 years and there are no other clear medications that would cause this degree of hyponatremia. Given 1 L of normal saline in the ED. Will recheck sodium levels every 6 hours through tomorrow morning with goal sodium 123-125 tomorrow morning. 1500 mL fluid restriction. Can consider nephrology consult as needed. 2. Hypokalemia ? Potassium 2.5 on admit. Magnesium normal. Phosphorus pending. Presume secondary to chlorthalidone as well. Will replete as needed. 3. Resistant hypertension ? Follows with outpatient nephrology has been seeing them since April 2024 for hypertension. Last virtual visit was on 10/06 and I reviewed this note in [facility]. Workup for secondary hypertension was negative. Has strong family history of hypertension. Previously intolerant to lisinopril (cough) and amlodipine (ankle swelling). Clonidine recently stopped as patient had intermittent nonadherence. Was on chlorthalidone 50 mg daily, losartan 100 mg daily and clonidine 0.1 mg twice daily until 10/06. Clonidine was stopped, chlorthalidone was lowered to 25 mg daily and both spironolactone 25 mg twice daily and doxazosin 1 mg at night were added. Chlorthalidone discontinued and should not be represcribed given her severe hyponatremia presumed secondary to this. While here will treat with losartan 100 mg daily, spironolactone 25 mg twice daily and doxazosin 1 mg at night. Will need close outpatient follow-up with nephrology after discharge. 4. Depression ? Has been on sertraline for 10 to 15 years, very low concern that this contributed to her hyponatremia. Continue home sertraline. 5. GERD ? Continue home Pepcid. DVT prophylaxis: Lovenox CODE STATUS: Full code, verified Expected disposition: Home, 2 to 3 days Total clinical time spent by myself addressing the patient's medical issues, reviewing all the data, and collaborating with patient's care team: 55 minutes. Charges/Coding Visit Charges Inpatient E&M: 28667 Init Hosp L2
[2024-10-08] MEDS: Potassium Chloride Oral Tablet 20 MEQ 40 MEQ PO (15:17)
[2024-10-08 15:43] LABS: Urine Sodium 39 mmol/L (Not Establ.)
[2024-10-08 16:30] LABS: Osmolality, Urine 138 mOsm/KG
[2024-10-08 16:45] LABS: Phosphorus 2.6 mg/dL (2.7-4.5)
[2024-10-08 18:12] LABS: Osmolality, Serum 253 mOsm/KG (275-295)
[2024-10-08 19:15] LABS: Anion Gap 12 (5-15); BUN 6 mg/dL (4-19); BUN/Creat Ratio 9.5 RATIO (10-20); Calcium,Total 9.7 mg/dL (7.6-11.0); Carbon Dioxide 23.8 mmol/L (21.0-32.0); Chloride 85 mmol/L (98-108); Creatinine, Serum 0.66 mg/dL (0.70-1.20); EST Glomerular Filtration Rate 104 (>60); Estimated Creatinine Clearance 94.76 ml/min (50-250); Glucose 106 mg/dL (70-99); Potassium 3.1 mmol/L (3.3-5.1); Sodium Level 121 mmol/L (133-145)
[2024-10-08] MEDS: Spironolactone 25 MG Tablet PO (21:10)
[2024-10-08] MEDS: Doxazosin 1 MG Tablet PO (21:10)
[2024-10-08] MEDS: Famotidine 20 MG Tablet PO (21:11)
[2024-10-09 01:02] LABS: Anion Gap 12 (5-15); BUN 12 mg/dL (4-19); BUN/Creat Ratio 16.8 RATIO (10-20); Carbon Dioxide 19.6 mmol/L (21.0-32.0); Chloride 90 mmol/L (98-108); Creatinine, Serum 0.69 mg/dL (0.70-1.20); EST Glomerular Filtration Rate 103 (>60); Estimated Creatinine Clearance 90.64 ml/min (50-250); Glucose 105 mg/dL (70-99); Potassium 3.3 mmol/L (3.3-5.1); Sodium Level 122 mmol/L (133-145)
[2024-10-09 02:49] VITALS: BP 111/68; PULSE 74; RESP 18; TEMP 36.6; O2SAT 97
[2024-10-09 06:46] LABS: Hematocrit 30.2 % (37-47); Hemoglobin 11.2 g/dL (12.0-15.0); Mean Corp Hgb Conc 37.1 g/dL (32-36); Mean Corpuscular Hgb 32.7 pg (27.0-32.0); Mean Platelet Vol. 8.8 fl (6.2-12.0); Platelet Count 240 K/mm3 (150-450); RBC Distribution Width CV 11.3 % (11.6-14.6); RBC Distribution Width SD 36.2 fl (35.1-43.9); Red Blood Count 3.43 M/mm3 (4.2-5.4); White Blood Count 2.9 K/mm3 (4.4-11.0)
[2024-10-09 07:36] LABS: Anion Gap 12 (5-15); BUN 8 mg/dL (4-19); Calcium,Total 9.1 mg/dL (7.6-11.0); Carbon Dioxide 21.1 mmol/L (21.0-32.0); Chloride 92 mmol/L (98-108); Creatinine, Serum 0.62 mg/dL (0.70-1.20); EST Glomerular Filtration Rate 106 (>60); Estimated Creatinine Clearance 100.87 ml/min (50-250); Glucose 97 mg/dL (70-99); Potassium 3.3 mmol/L (3.3-5.1); Sodium Level 125 mmol/L (133-145)
[2024-10-09 08:16] VITALS: O2SAT 97
[2024-10-09 09:30] VITALS: BP 107/70; PULSE 78; RESP 18; TEMP 36.3; O2SAT 96
--- NOTE | 2024-10-09 10:00 | CASEMGMT ---
ELAINE CARDENAS Assessment: Face to Face with pt for initial transition planning/care coordination assessment. RN THERESA introduced self and role at [facility], pt voices understanding and consents to assessment. Pt is A&O x4 and answers all questions appropriately at this time. Pt sitting up in bed eating breakfast in no distress. Care providers, pharmacy, and demographics verified/updated. Admitting Dx: hyponatremia and hypokalemia PCP:[facility] Specialists:Choles, nephro Preferred Pharmacy: [facility] Retail Insurance: [employer] Prescription Benefit: yes LNOK: Mukul Chairez, Living Arrangements: Pt lives with , dtr, son in law and grandchildren in a two story home with 4 steps to enter. Pt reports she is I in ADL/IADLs and denies concerns at home. Transportation: Pt drives self and denies concerns with transportation. DME:BP cuff HHC/SNF: Denies hx of Pt states no concerns with going home at time of dc. Pt states no further concerns/needs. CM to follow. Advised pt to ask CM if any further questions/concerns/needs arise, voices understanding. Pt Goal: Home Plan: Home Thanh HENRY CM
[2024-10-09] MEDS: Famotidine 20 MG Tablet PO (10:27)
[2024-10-09] MEDS: Spironolactone 25 MG Tablet PO (10:27)
[2024-10-09] MEDS: Losartan Potassium 100 MG Tablet PO (10:27)
[2024-10-09] MEDS: Fluoxetine HCl 40 MG CAPSULE PO (10:27)
[2024-10-09] MEDS: Acetaminophen 325 MG Tablet 650 MG PO (10:29)
--- NOTE | 2024-10-09 10:30 | PCM.DC ---
Discharge Instructions Diet Discharge Diet: Low fat / Low cholesterol DC O2, CPAP, BIPAP needs Home O2 Discharge instructions: No Dressing / Incision Discharge Activity: Return to Normal Activity Dressing / Incision Call your doctor if you observe: Fever of 101 or Higher, Shortness of breath, Dizziness, Fainting spells, Swelling in the ankles, Chest pain and Increased palpitations (irregular heartbeat) Follow Up Care Test Results: Test results from this visit will be discussed in further detail at your follow-up appointment, if applicable. Discharge Plan Admission Admit Date/Time: 10/08/24 15:00 Attending Provider: Mitchell Tobias Primary Care Provider: Brandon Monet Consulting Providers: Jonathan Brasher Instructions Patient Instructions: ED Hyponatremia Additional Instructions / Restrictions: Follow-up with your primary care doctor in 3 to 5 days to monitor your blood pressure in order a BMP to monitor your sodium levels. We did stop your chlorthalidone which is likely the cause of your low sodium level. Discharge Orders/Prescriptions Prescriptions: Continued fluoxetine 40 mg capsule 40 mg PO DAILY doxazosin 1 mg tablet 1 mg PO QHS spironolactone 25 mg tablet 25 mg PO BID losartan 100 mg tablet 100 mg PO DAILY famotidine [Acid Controller] 20 mg tablet 20 mg PO BID [id number] 333-133-5 mg tablet 3 tab PO BID artifi.tears(hypromellose)(PF) 1.7 % drops with applicator 1 drp EACH EYE DAILY PRN (Reason: dry eye(s)) Discontinued chlorthalidone 25 mg tablet 25 mg PO DAILY Patient Comments: PT ER DR TOLD TO STOP Referrals / Follow Up: Brandon Monet DO [Primary Care Provider] - Within 1 Week Disposition Disposition (needs filled in before D/C Order can be placed): Home, Self Care
[2024-10-09 11:32] VITALS: BP 102/56
--- NOTE | 2024-10-09 14:25 | PCM.DC.SUM ---
Providers Date of Admission: 10/08/24 Primary Care Physician: Dr. Brandon Monet, DO Reason For Visit: HYPO NATREMIA AND HYPOKALEMIA Diagnosis Discharge Diagnosis (1) Acute hyponatremia: Status: Acute Code(s): E87.1 - Hypo-osmolality and hyponatremia (2) Acute hypokalemia: Status: Acute Code(s): E87.6 - Hypokalemia (3) Hypertension: Status: Chronic Code(s): I10 - Essential (primary) hypertension Medications at Discharge Home Medications fluoxetine 40 mg capsule 40 mg PO DAILY 05/30/24 artifi.tears(hypromellose)(PF) 1.7 % eye drops with applicator 1 drp EACH EYE DAILY PRN dry eye(s) 10/08/24 [id number] 333 mg-133 mg-5 mg tablet 3 tab PO BID 10/08/24 doxazosin 1 mg tablet 1 mg PO QHS 10/08/24 famotidine 20 mg tablet (Acid Controller) 20 mg PO BID 10/08/24 losartan 100 mg tablet 100 mg PO DAILY 10/08/24 spironolactone 25 mg tablet 25 mg PO BID 10/08/24 Hospital Course Operations None Procedures None Summary of Care Provided Minutes Spent on Discharge: 32 Hospital Course: Per HPI: MARAH TOVAR, is a 54 F who presented to [facility] ED on 10/08/2024 with abnormal outpatient labs. Patient was found on BMP to have a sodium of 117 and potassium of 2.5. Last sodium was 134 on 08/07/24, has no prior history of hyponatremia. Patient has been following with nephrology since April for resistant hypertension. Secondary hypertension workup has been negative. She has had several medication changes since April. She was recently started on chlorthalidone 25 mg daily in early to mid August, and dose was then up to 50 mg daily in early September. She reports lightheadedness with mental fogginess and headache over the past few weeks. Today she feels similar to previous days but she is alert and oriented x 3 and conversing normally. Given no acute mental status change noted, she was given 1 L of normal saline and potassium supplementation, and hospitalist was contacted for admission. I saw the patient at bedside in the ED. Patient was very pleasant and sitting back comfortably in bed, conversing normally and in no acute distress. She stated that she felt slightly better after receiving the IV fluids earlier. She otherwise feels well, denies any acute pain or discomfort. No other acute concerns at this time. Hospital Course: 1. Severe hyponatremia secondary to chlorthalidone?54-year-old female presented to the hospital with severe hyponatremia and lightheadedness and fogginess. Today she feels much better as her sodium is now 125, on admission it was down to 117. Her labs support hyponatremia due to diuretic therapy therefore this medication was held and discontinued on discharge. I discussed with her the possibility for discharge today and she expressed understanding of the risks benefits going home and would still like to go home today. Blood pressures have remained normal to low therefore no medication adjustments were made on discharge, she is still on losartan, doxazosin and Aldactone. I do anticipate normalization of her sodium in the next day or 2 with appropriate p.o. intake. I discussed with her the need to follow-up with her PCP in 3 to 5 days for outpatient monitoring of her labs. 2. Resistant hypertension, depression, GERD are chronic medical conditions which complicate her care. Her home medications were continued where appropriate Physical Exam Narrative General: Alert, Oriented x3, Cooperative, No apparent distress HEENT: Atraumatic, PERRLA, EOMI, Normocephalic Oral: Moist Mucosa Neck: Supple, No JVD Lungs: Clear to auscultation, Normal air movement, No rhonchi, No wheeze, No rales Cardiovascular: Regular rate, Regular Rhythm, Normal S1, Normal S2, No murmurs Abdomen: Soft, Non Tender, Non-Distended, No Hepato-splenomegaly Extremities: No edema, Capillary Refill Less than 3 Seconds Skin: No rashes, No breakdown Musculoskeletal: No Tenderness to Palpation of Joints or Extremities Neurological: No focal neurological deficits, Motor Exam 5/5 strength throughout, Sensory exam intact to light touch and pain Psych/Mental Status: Normal Affect, Appropriate Weight / BMI Weight Weight: 149 lb 4.047 oz Body Mass Index (BMI) 23.3 ABG / Lab / Microbiology Data 10/09/24 06:18 10/09/24 06:18 Laboratory: Laboratory Results - last 24 hr 10/08/24 14:01: Urine RBC 0-5 SEEN, Urine WBC 0-5 SEEN, Ur Squamous Epith Cells 0-5 SEEN, Urine Bacteria 0 SEEN, Urine Mucus 0 SEEN, Urine Osmolality 138, Ur Random Sodium 39 10/08/24 14:03: Sodium 117 L*, Potassium 2.5 L*, Chloride 78 L, Carbon Dioxide 25.6, Anion Gap 13, BUN 8, Creatinine 0.66 L, Estim Creat Clear Calc 94.76, Est GFR (MDRD) Non-Af 104, BUN/Creatinine Ratio 12.2, Glucose 106 H, Calcium 10.1, Phosphorus 2.6 L, Magnesium 2.1 10/08/24 16:50: Serum Osmolality 253 L 10/08/24 18:01: Sodium 121 L, Potassium 3.1 L, Chloride 85 L, Carbon Dioxide 23.8, Anion Gap 12, BUN 6, Creatinine 0.66 L, Estim Creat Clear Calc 94.76, Est GFR (MDRD) Non-Af 104, BUN/Creatinine Ratio 9.5 L, Glucose 106 H, Calcium 9.7 10/09/24 00:07: Sodium 122 L, Potassium 3.3, Chloride 90 L, Carbon Dioxide 19.6 L, Anion Gap 12, BUN 12, Creatinine 0.69 L, Estim Creat Clear Calc 90.64, Est GFR (MDRD) Non-Af 103, BUN/Creatinine Ratio 16.8, Glucose 105 H, Calcium 9.0 10/09/24 06:18: WBC 2.9 L, RBC 3.43 L, Hgb 11.2 L, Hct 30.2 L, MCV 88.0, MCH 32.7 H, MCHC 37.1 H, RDW Std Deviation 36.2, RDW Coeff of Mehran 11.3 L, Plt Count 240, MPV 8.8, Sodium 125 L, Potassium 3.3, Chloride 92 L, Carbon Dioxide 21.1, Anion Gap 12, BUN 8, Creatinine 0.62 L, Estim Creat Clear Calc 100.87, Est GFR (MDRD) Non-Af 106, BUN/Creatinine Ratio 13.0, Glucose 97, Calcium 9.1 Radiography Diagnostic Testing: Radiology Impression Chest X-Ray 10/08/24 14:15 IMPRESSION: No acute cardiopulmonary process. Reading Location: [facility] D/C Instructions Discharge Diet: Low fat / Low cholesterol Call your doctor if you observe: Fever of 101 or Higher, Shortness of breath, Dizziness, Fainting spells, Swelling in the ankles, Chest pain and Increased palpitations (irregular heartbeat) DC O2, CPAP, BIPAP Needs Home O2 Discharge instructions: No Meaningful Use Info Meaningful Use Meaningful Use Diagnoses (Choose all that apply): None applicable Ischemic Stroke Statin Dosing Therapy Reference: STATIN DOSE THERAPY REFERENCE: * Patients > 75 years receive moderate or high dose statin therapy. * Patients 75 years or YOUNGER should receive HIGH intensity statin dose unless contraindicated. You will be required to document reason for non-treatment if statin daily dose does not meet guidelines. HIGH DOSE STATIN THERAPY DAILY Atorvastatin > than or = to 40 mg Rosuvastatin > than or = to 20 mg Amlodipine + Atorvastatin > than or = to 2.5/40 mg Ezetimibe + Simvastatin 10/80 mg Simvastatin 80mg Discharge Plan Admission Admit Date/Time: 10/08/24 15:00 Attending Provider: Mitchell Tobias Primary Care Provider: Brandon Monet Consulting Providers: Jonathan Brasher Instructions Patient Instructions: ED Hyponatremia Additional Instructions / Restrictions: Follow-up with your primary care doctor in 3 to 5 days to monitor your blood pressure in order a BMP to monitor your sodium levels. We did stop your chlorthalidone which is likely the cause of your low sodium level. Discharge Orders/Prescriptions Prescriptions: Continued fluoxetine 40 mg capsule 40 mg PO DAILY doxazosin 1 mg tablet 1 mg PO QHS spironolactone 25 mg tablet 25 mg PO BID losartan 100 mg tablet 100 mg PO DAILY famotidine [Acid Controller] 20 mg tablet 20 mg PO BID [id number] 333-133-5 mg tablet 3 tab PO BID artifi.tears(hypromellose)(PF) 1.7 % drops with applicator 1 drp EACH EYE DAILY PRN (Reason: dry eye(s)) Discontinued chlorthalidone 25 mg tablet 25 mg PO DAILY Patient Comments: PT ER DR TOLD TO STOP Referrals / Follow Up: Brandon Monet DO [Primary Care Provider] - Within 1 Week Disposition Disposition (needs filled in before D/C Order can be placed): Home, Self Care Charges/Coding Visit Charges Inpatient E&M: 14442 Disch Hosp >30min
== END 2024-10-09 12:31 | disposition home or self-care (01) | DRG 641 ==
LOC: ED 14:54 → PCU 15:16
PROVIDERS: Admitting Provider Hospitalist; Emergency Provider Emergency Medicine; PCP Student in an Organized Health Care Education/Training Program; Visit Provider Family Medicine
DX: E87.1 Hypo-osmolality and hyponatremia (principal); E87.6 Hypokalemia; F32.A Depression, unspecified; I1A.0 Resistant hypertension; K21.9 Gastro-esophageal reflux disease without esophagitis; I10 Essential (primary) hypertension; Z90.710 Acquired absence of both cervix and uterus; Z79.899 Other long term (current) drug therapy; T50.2X5A Adverse effect of carbonic-anhydrase inhibitors, benzothiadiazides and other diuretics, initial encounter
CPT/HCPCS: 36415; 71045; 80048; 81001; 83735; 83930; 83935; 84100; 84300; 85025; 85027; 92610; 93005; 97802; 99284; A4216

== ENCOUNTER → 2025-04-14 | Outpatient (CLI) | payer OTHER, SELFPAY ==
--- NOTE | 2025-04-14 15:59 | BI_ITS ---
EXAM: SCRN MAMM (CAD)W/SUZANNE BILAT DATE: 04/14/2025 CLINICAL HISTORY: F, Age 54 y/o , SCREENING TECHNIQUE: Procedure Code: BISMWCADBTOM Modality: MG Procedure: SCRN MAMM (CAD)W/SUZANNE BILAT COMPARISON: Prior exam(s) dated 11/28/2023, 08/23/2022. FINDINGS: TISSUE DENSITY: The breasts are heterogeneously dense, which may obscure small masses. The mammogram demonstrates that the patient has dense breasts. Supplemental screening with whole breast ultrasound or MRI may be considered for further evaluation. Bilateral Breast Mammographic Findings: No significant masses, calcifications or other abnormalities are identified. BI/SCRN MAMM (CAD)W/SUZANNE BILAT IMPRESSION: There is no mammographic evidence of malignancy. OVERALL FINAL ASSESSMENT BI-RADS 1: NEGATIVE. RECOMMENDATION: Routine annual follow-up in 1 Year Additional Recommendation none A letter with findings and recommendations will be mailed to the patient. Reading Location: [id number]
--- NOTE | 2025-04-14 15:59 | BI_ITS ---
EXAM: SCRN MAMM (CAD)W/SUZANNE BILAT DATE: 04/14/2025 CLINICAL HISTORY: F, Age 54 y/o , SCREENING TECHNIQUE: Procedure Code: BISMWCADBTOM Modality: MG Procedure: SCRN MAMM (CAD)W/SUZANNE BILAT COMPARISON: Prior exam(s) dated 11/28/2023, 08/23/2022. FINDINGS: TISSUE DENSITY: The breasts are heterogeneously dense, which may obscure small masses. The mammogram demonstrates that the patient has dense breasts. Supplemental screening with whole breast ultrasound or MRI may be considered for further evaluation. Bilateral Breast Mammographic Findings: No significant masses, calcifications or other abnormalities are identified. BI/SCRN MAMM (CAD)W/SUZANNE BILAT IMPRESSION: There is no mammographic evidence of malignancy. OVERALL FINAL ASSESSMENT BI-RADS 1: NEGATIVE. RECOMMENDATION: Routine annual follow-up in 1 Year Additional Recommendation none A letter with findings and recommendations will be mailed to the patient. Reading Location: [id number]
--- OUTSIDE RECORDS SUMMARY | 2025-04-14 17:26 | XMS RPT_ITS | CCD ---
Author Organization [facility] Inform ion Partnership [facility] Care Team Providers Care Mask Design Engineer Name Role Phone Brandon Monet DO Primary Care Provider TREE DOUGHERTY Referring Unavailable BRANDON MONET Primary Care Unavailable TREE DOUGHERTY Attending Unavailable TREE DOUGHERTY Admitting Unavailable BRANDON MONET Primary Care Unavailable Brandon Monet DO Primary Care Provider Brandon Monet DO Primary Care Provider Simms FEED RESEARCH AIDE.Iza COELHO Unavailable [facility] FEED RESEARCH AIDE.Ivory COELHO Unavailable IZA SIMMS Referring Unavailabl e BRANDON MONET Primary Care Unavailable Dr. Brandon Monet DO Primary Care Provider Dr. Karl العراقي DO Attending Provider Dr. Karl العراقي DO Emergency Provider Dr. Iftikhar Mendoza DO Emergency Provider [phone] Dr. Jonathan Brasher DO Admit Provider [phone] Dr. Jonathan Brasher DO Attending Provider Dr. Jonathan Brasher DO Other Provider Jatinder PECK, Dr. Mitchell Montano Attending Provider Mendez FEED RESEARCH AIDE.Iza COELHO Unavailable Yee FEED RESEARCH AIDE.Janeth COELHO Unavailable MONET, BRANDON L Primary Care Unavailable COLLINS CHOLES, LADARIUS Referring Unavailabl e MONET, BRANDON L Primary Care Unavailable COLLINS CHOLES, LADARIUS Referring Unavailabl e MONET, BRANDON L Primary Care Unavailable IZA SIMMS Attending Unavailabl e MONET, BRANDON L Primary Care Unavailable IZA SIMMS Referring Unavailabl e COLLINS CHOLES, LDAARIUS Referring Unavailabl e MONET, BRANDON L Primary Care Unavailable COLLINS CHOLES, LADARIUS Referring Unavailabl e MONET, BRANDON L Primary Care Unavailable MONET, BRANDON L Primary Care Unavailable ALEXIS, IVORY Referring Unavailable MONET, BRANDON L Primary Care Unavailable ALEXISIVORY PERAZA Attending Unavailable MONET, BRANDON L Primary Care Unavailable ALEXISIVORY Attending Unavailable MONET, BRANDON L Primary Care Unavailable ALEXISIVORY VIRGEN Attending Unavailable MONET, BRANDON L Primary Care Unavailable ALEXISIVORY VIRGEN Referring Unavailable RONNY GOODMAN Attending Unavailable MONET, BRANDON L Primary Care Unavailable RONNY GOODMAN Referring Unavailable MONET, BRANDON L Primary Care Unavailable MONET, BRANDON L Primary Care Unavailable IVORY ESPINOZA Attending Unavailable IZA SIMMS Attending Unavailabl e MONET, BRANDON L Primary Care Unavailable IZA SIMMS Referring Unavailabl e MONET, BRANDON L Primary Care Unavailable MONET, BRANDON L Primary Care Unavailable ALEXISIVORY Attending Unavailable MONET, BRANDON L Primary Care Unavailable DYLAN COLE Attending Unavailable COLLINS CHOLES, LADARIUS Attending Unavailabl e MONET, BRANDON L Primary Care Unavailable COLLINS CHOLES, LADARIUS Attending Unavailabl e ALEXIS, IVORY Referring Unavailable MONET, BRANDON L Primary Care Unavailable Jonathan Brasher Admitting Unavailable Jonathan Brasher Consulting Unavailable Monet, Brandon Primary Care Unavailable Mitchell Tobias Attending Unavailable Mitchell Tobias Consulting Unavailable Jonathan Brasher Attending Unavailable Karl العراقي Attending Unavailabl e Monet, Brandon Primary Care Unavailable Karl العراقي Attending Unavailabl e Monet, Brandon Primary Care Unavailable Monet, Brandon Primary Care Unavailable ALTAGRACIA Attending Unavailable ALTAGRACIA Referring Unavailable Jonathan Brasher Admitting Unavailable Jonathan Brasher Consulting Unavailable Monet, Brandon Primary Care Unavailable Kotsonis, Mitchell F Attending Unavailable Allergies Allergy Classification Reported Allergen(s) Allergy Type Date of Onset Reaction(s) Facility (20 sources) Lisinopril; Translations: [LISINOPRIL] Drug Allergy 06-02-2024 Cough [facility] (20 sources) amLODIPine; Translations: [AMLODIPINE] Drug Allergy 07-29-2024 Intolerance [facility] (16 sources) Chlorthalidone; Translations: [CHLORTHALIDONE] Drug Allergy 10-12-2024 Intolerance [facility] (1 source) amLODIPine Drug Allergy 10-08-[address] [facility] (1 source) Lisinopril Drug Allergy 10-08-[address] [facility] Medications Current Medications Medication Drug Class(es) Dates Sig (Normalized) Sig (Original) amoxicillin 875 mg / clavulanate 125 mg oral tablet (1 source) Penicillin-class Antibacterial Start: 09-28-2024 End: 10-03-2024 take 1 tablet by mouth twice daily amoxicillin-clavu lanate potassium (AUGMENTIN) 875-125 mg per tablet Indications: Acute maxillary sinusitis, recurrence not specified Take 1 tablet by mouth two times a day for 5 days. 10 tablet 09/28/2024 10/03/2024 Active benzonatate 100 mg oral capsule (1 source) Non-narcotic Antitussive Start: 09-28-2024 End: 10-05-2024 take 1 capsule by mouth three times daily as needed benzonatate (TESSALON PERLE) 100 mg capsule Indications: Acute maxillary sinusitis, recurrence not specified Take 1-2 capsules by mouth three times a day as needed for cough for up to 7 days. 21 capsule 09/28/2024 10/05/2024 Active Calcium-Magnesium- Zinc (2 sources) Start: 10-08-2024 Calcium-Magnesium -Zinc 333-133-5 mg tablet Active 3 {tbl} PO TWICE A DAY October 08, 2024 12:00am Calcium-Magnesium- Zinc tab (20 sources) Calcium-Magnesiu m -Zinc tab Take by mouth. Active Calcium-Magnesiu m-Zinc tab Take by mouth. 0 Active Comment on above: Take by mouth. doxazosin 1 mg oral tablet (17 sources) alpha-Adrenergic Yue Start: take 1 tablet by mouth once daily at bedtime doxazosin (CARDURA) 1 mg tablet Take 1 tablet by mouth daily at bedtime. 90 tablet 5 10/06/2024 Active doxycycline monohydrate 100 mg oral tablet (1 source) Tetracycline-class Drug Start: 3 End: 3 take 1 tablet by mouth twice daily doxycycline monohydrate 100 mg tablet Take 1 tablet by mouth twice daily for 5 days. 10 tablet 0 10/22/2022 10/27/2022 Active Comment on above: Take 1 tablet by natalia th twice daily for 5 days. famotidine 20 mg oral tablet (20 sources) Histamine-2 Receptor Antagonist Start: take 1 tablet by mouth every twenty-four hours as needed famotidine (PEPCID) 20 mg tablet Take 1 tablet by mouth at bedtime as needed. 07/27/2020 Active Comment on above: Take 1 tablet by natalia th at bedtime as needed. fluconazole 150 mg oral tablet (2 sources) Azole Antifungal Start: End: fluconazole (DIFLUCAN) 150 mg tablet Take 1 tablet by mouth one time only for 1 dose. Repeat in 3 days as needed. 2 tablet 10/14/2024 10/14/2024 Active FLUoxetine 40 mg oral capsule (20 sources) Serotonin Reuptake Inhibitor Start: End: take 1 capsule by mouth twice daily FLUoxetine (PROZAC) 40 mg capsule Indications: Dysthymia Take 1 capsule by mouth two times a day. In addition to 20mg capsule for total of 60mg daily 60 capsule 2 07/29/2024 Active Start: 07-01-2024 End: 09-29-2024 take 1 capsule by mouth once daily FLUoxetine (PROZAC) 20 mg capsule Take 1 capsule by mouth once daily. In addition to 40mg capsule for total of 60mg daily 30 capsule 2 07/01/2024 07/29/2024 Discontinued Start: 06-28-2022 End: 07-29-2024 take 1 capsule by mouth once daily Fluoxetine 40 mg capsule Active 40 mg PO DAILY May 30, 2024 1:00am Start: 08-22-2021 take 1 capsule by mo ut once daily FLUoxetine HCl (PROZAC) 40 mg capsule Indications: Dysthymia TAKE 1 CAPSULE BY MOUTH EVERY DAY 90 capsule 3 08/22/2021 Active Comment on above: TAKE 1 CAPSULE BY MO [facility] EVERY DAY Take 1 capsule by mo [facility] once daily. hypromellose 17 mg/ml ophthalmic solution (2 sources) Start: 5 Artifi.Tears(Hyprome llose)(Pf) 1.7 % drops with applicator Active 1 NMA EACH EYE DAILY as needed for dry eye(s) October 08, 2024 12:00am losartan potassium 100 mg oral tablet (20 sources) Angiotensin 2 Receptor Yue Start: End: take 1 tablet by mouth once daily losartan (COZAAR) 100 mg tablet Indications: Primary hypertension Take 1 tablet by mouth once daily. 90 tablet 3 10/14/2024 10/09/2025 Active Start: 07-28-2024 End: 10-26-2024 take 1 tablet by mouth once daily Losartan 50 mg tablet Discontinued 50 mg PO DAILY August 07, 2024 1:00am October 08, 2024 3:08pm Start: 07-01-2024 End: 09-29-2024 take 1 tablet by mouth once daily losartan (COZAAR) 25 mg tablet Indications: Primary hypertension Take 1 tablet by mouth once daily. 30 tablet 2 07/01/2024 07/28/2024 Discontinued multivitamin tablet (20 sources) Start: 08-01-2023 take 1 tablet by mouth once daily multivitamin tablet Take 1 tablet by mouth once daily. 08/01/2023 Active Start: 08-01-2023 take 1 tablet by [facility] once daily multivitamin tablet Take 1 tablet by mouth once daily. 0 08/01/2023 Active Comment on above: Take 1 tablet by natalia th once daily. nitrofurantoin, macrocrystals 25 mg / nitrofurantoin, monohydrate 75 mg oral capsule (1 source) Nitrofuran Antibacterial Start: 025 End: take 1 capsule by mouth twice daily nitrofurantoin monohydrate and macrocrystal (MACROBID) 100 mg capsule Take 1 capsule by mouth two times a day for 5 days. 10 capsule 10/18/2024 10/23/2024 Active spironolactone 25 mg oral tablet (17 sources) Aldosterone Antagonist Start: 025 take 1 tablet by mouth twice daily spironolactone (ALDACTONE) 25 mg tablet Indications: Resistant hypertension Take 1 tablet by mouth two times a day. 180 tablet 5 10/06/2024 Active Completed/Discontinued Medications Medication Drug Class(es) Dates Sig (Normalized) Sig (Original) acetaminophen 325 mg / HYDROcodone bitartrate 5 mg oral tablet (4 sources) Opioid Agonist Start: 03-28-2022 End: 08-07-2024 Hydrocodone-Acetami nophen 5-325 mg tablet Discontinued 1 {tbl} PO EVERY 4 HOURS NEEDED as needed for Pain 10 March 28, 2022 August 07, 2024 7:33pm Start: 03-28-2022 take 1 tablet by natalia th every four hours as needed Hydrocodone-Acetaminophen Active 1 TABLE T PO EVERY 4 HOURS NEEDED 04 21March 28, 2022 amLODIPine 5 mg oral tablet (6 sources) Dihydropyridine Calcium Channel Yue Start: 07-28-2024 End: 10-26-2024 take 1 tablet by mouth once daily amLODIPine (NORVASC) 5 mg tablet Indications: Primary hypertension Take 1 tablet by mouth once daily. 30 tablet 2 07/28/2024 07/29/2024 Discontinued Start: 06-16-2024 End: 12-28-2024 take 1 tablet by mouth once daily amLODIPine (NORVASC) 10 mg tablet Indications: Primary hypertension Take 1 tablet by mouth once daily. 30 tablet 5 07/01/2024 07/28/2024 Discontinued Start: 06-02-2024 End: 07-02-2024 take 1 tablet by mouth once daily amLODIPine (NORVASC) 5 mg tablet Indications: Primary hypertension Take 1 tablet by mouth once daily. 30 tablet 06/02/2024 07/02/2024 Active cephalexin 500 mg oral capsule (4 sources) Cephalosporin Antibacterial Start: 03-28-2022 End: 08-07-2024 take 1 capsule by mouth every six hours Cephalexin 500 mg capsule Discontinued 500 mg PO EVERY 6 HOURS 40 March 28, 2022 12:00am August 07, 2024 7:33pm chlorthalidone 25 mg oral tablet (10 sources) Thiazide-like Diuretic Start: 09-16-2024 End: 10-06-2024 take 1 tablet by mouth once daily chlorthalidone (HYGROTON) 50 mg tablet Take 1 tablet by mouth once daily. 90 tablet 1 09/16/2024 10/06/2024 Discontinued (Dosage adjustment) Start: 08-31-2024 End: 11-29-2024 take 1 tablet by mouth once daily Chlorthalidone 25 mg tablet Discontinued 25 mg PO DAILY October 08, 2024 12:00am October 09, 2024 10:31am cholecalciferol 0.1 mg oral capsule (7 sources) Vitamin D End: 08-20-2022 cholecalciferol, vitamin D3, (VITAMIN D3) 100 mcg (4,000 unit) cap Take by mouth. 0 08/20/2022 Discontinued Comment on above: Take by mouth. cloNIDine hydrochloride 0.1 mg oral tablet (15 sources) Central alpha-2 Adrenergic Agonist Start: 08-13-2024 End: 10-06-2024 take 1 tablet by mouth twice daily cloNIDine HCl (CATAPRES) 0.1 mg tablet Indications: Primary hypertension Take 1 tablet by mouth two times a day. 30 tablet 08/13/2024 10/06/2024 Discontinued (Clinical Decision) Start: 08-07-2024 End: 10-08-2024 Clonidine Hcl 0.1 mg tablet Discontinued 0.1 mg PO Q8H as needed for hypertension 6 2 August 07, 2024 1:00am October 08, 2024 3:12pm Take for SBP >175 hydroCHLOROthiazide 25 mg oral tablet (5 sources) Thiazide Diuretic Start: 08-13-2024 End: 11-11-2024 take 1 tablet by mouth once daily hydroCHLOROthiazide 25 mg tablet Indications: Primary hypertension Take 1 tablet by mouth once daily. 90 tablet 08/13/2024 08/31/2024 Discontinued lisinopril 20 mg oral tablet (7 sources) Angiotensin Converting Enzyme Inhibitor Start: 05-27-2024 End: 08-07-2024 take 1 tablet by mouth once daily Lisinopril 20 mg tablet Discontinued 20 mg PO DAILY May 30, 2024 1:00am August 07, 2024 7:32pm Start: 05-19-2024 take 2 tablets by mo uth once daily lisinopril (ZESTRIL) 5 mg tablet Indications: Primary hypertension Take 2 tablets by mouth once daily. 05/19/2024 Active Start: 05-05-2024 End: 05-19-2024 take 1 tablet by mouth once daily lisinopril (ZESTRIL) 5 mg tablet Indications: Primary hypertension Take 1 tablet by mouth once daily. 30 tablet 1 05/05/2024 05/19/2024 Discontinued (Adjust Sig - Block E-Cancel) predniSONE 10 mg oral tablet (1 source) Start: 11-03-2022 predniSONE (DELTASONE) 10 mg tablet Indications: Contact dermatitis due to plants, except food, unspecified contact dermatitis type Take 4 tabs daily for 3 days, then 2 tabs daily for 3 days, then 1 tab daily for 3 days with food. 21 tablet 0 11/03/2022 Active Comment on above: Take 4 tabs daily fo r 3 days, then 2 tabs daily for 3 days, then 1 tab daily for 3 days with food. raNITIdine 150 mg oral tablet (7 sources) Histamine-2 Receptor Antagonist End: 08-20-2022 take 1 tablet by mouth twice daily ranitidine (ZANTAC) 150 mg tablet Take 150 mg by mouth twice daily. 0 08/20/2022 Discontinued Comment on above: Take 150 mg by mouth twice daily. Urea (4 sources) Start: 10-14-2024 End: 10-25-2024 urea (URE-NA) 15 gram oral powder Indications: Hyponatremia Take 15 g by mouth two times a day. 180 Packet 5 10/14/2024 10/25/2024 Discontinued (Cost of medication) Start: 10-14-2024 urea (URE-NA) 15 gram oral powder Indications: Hyponatremia Take 15 g by mouth two times a day. 180 Packet 5 10/14/2024 Active Problems Active Problems Problem Classification Problem Date Documented Date Episodic/Chronic Allergic reactions (1 source) Contact dermatitis due to plants; Translations: [Unspecified contact dermatitis due to plants, except food] Episodic Crushing injury or internal injury (3 sources) Crush injury of toe of right foot; Translations: [Crushing injury of unspecified right toe(s), initial encounter] 03-31-2022 Episodic Esophageal disorders (20 sources) Gastroesophageal reflux disease; Translations: [Gastro-esophageal reflux disease without esophagitis] Onset: 08-20-2022 Chronic Essential hypertension (20 sources) Essential hypertension; Translations: [Essential (primary) hypertension] Onset: 08-25-2024 05-05-2024 Chronic Fracture of lower limb (4 sources) Open fracture of phalanx of foot; Translations: [Displaced unspecified fracture of right lesser toe(s), initial encounter for open fracture] 04-05-2022 Episodic Genitourinary symptoms and ill-defined conditions (4 sources) Dysuria; Translations: [Dysuria] 10-14-2024 Episodic Headache; including migraine (2 sources) Headache; Translations: [Headache, unspecified headache type] 05-05-2024 Episodic Headache; including migraine (1 source) Headache; including migraine; Translations: [Headache, unspecified headache type] Onset: 05-05-2024 Hypertension with complications and secondary hypertension (2 sources) Hypertensive urgency ; Translations: [Hypertensive urgency] 08-15-2024 Chronic Mood disorders (20 sources) Dysthymia; Translations: [Dysthymic disorder] Onset: 08-23-2015 08-23-2015 Chronic Mycoses (1 source) Mycosis; Translations: [Candidiasis, unspecified] 10-14-2024 Episodic Open wounds of extremities (4 sources) Laceration of toe of right foot; Translations: [Laceration without foreign body of right lesser toe(s) without damage to nail, initial encounter] Episodic Other aftercare (1 source) Post-discharge follow-up; Translations: [Encounter for follow-up examination after completed treatment for conditions other than malignant neoplasm] 10-14-2024 Episodic Other circulatory disease (1 source) Elevated blood-pressure reading without diagnosis of hypertension; Translations: [Elevated blood-pressure reading, without diagnosis of hypertension] 04-27-2024 Episodic Other connective tissue disease (3 sources) Ganglion cyst of right wrist; Translations: [Ganglion, right wrist] Episodic Other connective tissue disease (2 sources) Dupuytren's contracture; Translations: [Palmar fascial fibromatosis [Dupuytren]] Episodic Other connective tissue disease (2 sources) Dupuytren contracture of right palm; Translations: [Palmar fascial fibromatosis [Dupuytren]] Episodic Other connective tissue disease (1 source) Ganglion cyst; Translations: [Ganglion, unspecified site] Episodic Other connective tissue disease (1 source) Ganglion, unspecified site; Translations: [Ganglion] Onset: 02-10-2023 Episodic Other injuries and conditions due to external causes (2 sources) Injury of left upper arm; Translations: [Unspecified injury of left shoulder and upper arm, initial encounter] 04-27-2024 Episodic Other lower respiratory disease (1 source) Cough; Translations: [Acute cough] Episodic Other lower respiratory disease (1 source) Rib pain; Translations: [Pleurodynia] Episodic Other lower respiratory disease (1 source) Cough; Translations: [Acute cough] 10-22-2022 Episodic Other non-traumatic joint disorders (1 source) Pain in right knee; Translations: [Pain in joint, lower leg] 08-01-2023 Episodic Other non-traumatic joint disorders (1 source) Effusion of right knee joint; Translations: [Effusion, right knee] 08-01-2023 Episodic Other screening for suspected conditions (not mental disorders or infectious disease) (4 sources) Patient encounter status; Translations: [Encounter for screening mammogram for malignant neoplasm of breast] Onset: 04-07-2025 Episodic Other upper respiratory infections (1 source) Acute maxillary sinusitis; Translations: [Acute maxillary sinusitis, unspecified] 09-29-2024 Episodic Pneumonia (except that caused by tuberculosis or sexually transmitted disease) (1 source) Infective pneumonia; Translations: [Pneumonia, unspecified organism] Episodic Unclassified (2 sources) Resistant hypertension; Translations: [Resistant hypertension] Onset: 10-06-2024 Past or Other Problems Problem Classification Problem Date Documented Da te Episodic/Chronic Fluid and electrolyte disorders (15 sources) Hyponatremia; Translations: [Hypo-osmolality and hyponatremia] Onset: 10-11-2024 10-12-2024 Episodic Fracture of upper limb (3 sources) Closed fracture of head of radius; Translations: [Nondisplaced fracture of head of left radius, initial encounter for closed fracture] Onset: 05-05-2024 05-03-2024 Episodic Other circulatory disease (1 source) Elevated blood-pressure reading, without diagnosis of hypertension; Translations: [Elevated BP without diagnosis of hypertension] Onset: 04-27-2024 Episodic Other injuries and conditions due to external causes (1 source) Unspecified injury of left shoulder and upper arm, initial encounter; Translations: [Injury of left upper arm, initial encounter] Onset: 04-27-2024 Episodic Unclassified (1 source) Patient encounter status 10-19-2024 Results Test Name Value Interpretation Reference Range Facility [facility] 03-23-2025 [facility] Telephone ([employer]) ISA TOVAR ([id number]) 1970 F Date Time Provider Department 03/23/25 COLLINSNIKOLAY JONESLADARIUS During your visit today, we recorded the following information about you: Chica Toribio RN 03/23/2025 11:16 AM Signed Prior Auth sent via [employer]. ISA TOVAR (Acno: [id number]) [facility] is processing your PA request and will respond shortly with next steps. You are currently using the fastest method to process this prior authorization. Please do not fax or call [facility] to resubmit this request. To check for an update later, open this request again from your dashboard. Chica Toribio RN 03/23/2025 11:59 AM Signed ISA TOVAR (Cano: [id number]) Rx #: [id number] Need Help? Call us at Status Sent to Plan today Drug Spironolactone 25MG tablets Form Gift Card [employer] Electronic PA Form (2016 COPD) Original Claim Info 19,76 MAXIMUM DAYS SUPPLY OF 30TRANSMISSION FEE UP TO $0.32 MAY APPLY(PHARMACY HELP DESK ) For [employer] C[employer] [place] of: $58.32 submit to BIN: [id number] PCN: [id number] Group: COUPON --Service provided at no cost and no switch fee to the pharmacy-- Allergies As of Date: 03/23/2025 Noted Allergy Reaction CHLORTHALIDONE 10/12/2024 5 - Intolerance Comments: Hyponatremia and hypokalemia. AMLODIPINE 07/29/2024 5 - Intolerance Comments: Pedal edema LISINOPRIL 06/02/2024 3 - Cough Date Reviewed: 01/26/2025 Reviewed by: Ladarius Arenas MD - Fully Assessed Reason for Visit: Insurance Authorization [[id number]] Cmt: PRIOR AUTH SPIRONOLATONE 25 MG Prescriptions as of 03/23/2025 - losartan (COZAAR) 100 mg tablet Take 1 tablet by mouth once daily. - spironolactone (ALDACTONE) 25 mg tablet Take 1 tablet by mouth two times a day. - doxazosin (CARDURA) 1 mg tablet Take 1 tablet by mouth daily at bedtime. - FLUoxetine (PROZAC) 40 mg capsule Take 1 capsule by mouth two times a day. In addition to 20mg capsule for total of 60mg daily - multivitamin tablet Take 1 tablet by mouth once daily. - famotidine (PEPCID) 20 mg tablet Take 1 tablet by mouth at bedtime as needed. - Kpwcwmy-Srtdxzwif-Pyby tab Take by mouth. Problem List As Of Date 03/23/2025 Noted Resolved Dysthymia [F34.1] 08/23/2015 Well adult exam [Z00.00] 08/23/2015 Acid reflux [K21.9] 08/20/2022 Resistant hypertension [I1A.0] 10/06/2024 Encounter Status:Closed by CHICA TORIBIO on 03/23/25 [facility] ACTH [facility] 01-27-2025 Corticotropin (P) [Mass/Vol] 21.6 pg/mL Normal 7.2-63.3 [facility] Comment on above: Order Comment: Speci men Type: URINE SPECIMEN Ordering Facility: [facility] Address: [address] [place] [address] Result Comment: ACTH Reference Range: 7-10 am: 7.2 - 63.3 pg/mL Performed By: #### 3 5677-4, 34914-5, 38320-1 #### [facility] CLIA [id number] [address] [place] [address] [place] ALDOSTERONE/DIRECT RENIN RAT IOon 01-27-2025 [place] RENIN RATIO 0.5 Normal <3.8 [facility] Comment on above: Order Comment: Speci men Type: URINE SPECIMEN Ordering Facility: [facility] Address: [address] [place] [address] Result Comment: A ra tamie of aldosterone in ng/dL to direct renin in pg/mL greater than or equal to 3.8 is a positive screening test result for primary aldosteronism, when aldosterone is greater than or equal to 15 ng/dL. Performed By: #### 3 5677-4, 69304-7, 44400-6 #### [facility] CLIA [id number] [address] [place] [address] [place] Aldosterone [Mass/Vol] 6.2 ng/dL Normal 0.0-<35.4 [facility] Comment on above: Order Comment: Speci men Type: URINE SPECIMEN Ordering Facility: [facility] Address: [address] [place] [address] Result Comment: The reference interval for serum/plasma aldosterone is based on a normal sodium intake and upright position. High sodium intake may suppress aldosterone and low sodium intake may increase aldosterone. The supine reference interval is <23.7 ng/dL. A ratio of aldosterone in ng/dL to direct renin in pg/mL greater than or equal to 3.8 is a positive screening test result for primary aldosteronism, when aldosterone is greater than or equal to 15 ng/dL. Performed By: #### 3 5677-4, 60734-2, 43449-5 #### [facility] CLIA [id number] [address] [place] [address] [place] DIRECT RENIN 12.8 pg/mL Normal 3.6-81.6 [facility] Comment on above: Order Comment: Speci men Type: URINE SPECIMEN Ordering Facility: [facility] Address: [address] [place] [address] Result Comment: The reference interval for direct renin is based on an upright position. The supine reference intervals are: Age <41 years: 3.2-33.2 pg/mL Age >=41 years: 2.5-45.1 pg/mL A ratio of aldosterone in ng/dL to direct renin in pg/mL greater than or equal to 3.8 is a positive screening test result for primary aldosteronism, when aldosterone is greater than or equal to 15 ng/dL. Performed By: #### 3 5677-4, 07138-7, 10578-7 #### [facility] CLIA [id number] [address] [place] [address] [place] PATIENT UPRIGHT OR SUPINE Upright Normal [facility] Comment on above: Order Comment: Speci men Type: URINE SPECIMEN Ordering Facility: [facility] Address: [address] [place] [address] Performed By: #### 3 5677-4, 02918-1, 89926-5 #### [facility] CLIA [id number] [address] [place] [address] [place] CATECHOLAMINES FRAon 07-10-2 025 CATECHOLAMINE INTERPRETATION PLASMA See Note Normal [facility] Comment on above: Order Comment: Speci men Type: URINE SPECIMEN Ordering Facility: [facility] Address: [address] [place] [address] Result Comment: INTE RPRETIVE INFORMATION: Catecholamines Panel, Plasma Small increases in catecholamines (less than 2 times the upper reference limit) are usually the result of physiological stimuli, drugs, or improper specimen collection. Significant elevation of one or more catecholamines (2 or more times the upper reference limit) is associated with an increased probability of a neuroendocrine tumor. Measurement of plasma or urine fractionated metanephrines provides better diagnostic sensitivity than measurement of catecholamines. Lower catecholamine concentrations are observed in specimens collected from supine adults. To convert to picograms per milliliter (pg/mL), multiply the reported concentration for Dopamine by 0.153, Epinephrine by 0.183, and Norepinephrine by 0.169. Access complete set of age- and/or gender-specific reference intervals for this test in the [facility] Test Directory ([employer]). This test was developed and its performance characteristics determined by [facility]. It has not been cleared or approved by the [place] Food and Drug Administration. This test was performed in a CLIA certified laboratory and is intended for clinical purposes. Performed By: [facility] [address] [place] [address] Corporate Development Associate: Angel Potter MD, PhD CLIA Number: [id number] Performed By: #### 3 5677-4, 61352-9, 72770-8 #### [facility] CLIA [id number] [address] [place] [address] [place] DOPAMINE 163 pmol/L Normal <=240 [facility] Comment on above: Order Comment: Speci men Type: URINE SPECIMEN Ordering Facility: [facility] Address: [address] [place] [address] Result Comment: INTE RPRETIVE INFORMATION: Dopamine Seated (15 min) less than or equal to 240 pmol/L Supine (30 min) less than or equal to 240 pmol/L Performed By: #### 3 5677-4, 86551-9, 37874-1 #### [facility] CLIA [id number] [address] [place] [address] [place] EPINEPHRINE (P) 153 pmol/L Normal <=330 [facility] Comment on above: Order Comment: Speci men Type: URINE SPECIMEN Ordering Facility: [facility] Address: [address] [place] [address] Result Comment: INTE RPRETIVE INFORMATION:Epinephrine Seated (15 min) less than or equal to 330 pmol/L Supine (30 min) less than or equal to 265 pmol/L Performed By: #### 3 5677-4, 78748-3, 47848-0 #### [facility] CLIA [id number] [address] [place] [address] [place] NOREPINEPHRINE 4161 pmol/L Normal 0801-0151 [facility] Comment on above: Order Comment: Speci men Type: URINE SPECIMEN Ordering Facility: [facility] Address: [address] [place] [address] Result Comment: INTE RPRETIVE INFORMATION: Norepinephrine Seated (15 min) 1050 - 4800 pmol/L Supine (30 min) 680 - 3100 pmol/L Performed By: #### 3 5677-4, 11427-9, 32208-3 #### [facility] CLIA [id number] [address] [place] [address] [place] CORTISOL, FREEon 01-27-2025 FREE CORTISOL, SERUM 0.38 ug/dL Normal [facility] Comment on above: Order Comment: Speci men Type: BLOOD SPECIMENOrdering Facility: [facility] Address: [address] [place] [address] Result Comment: 18 y ears of age and older: 8-10 a.m. collection: 0.21-1.04 ug/dL 4-6 p.m. collection: 0.10-0.63 ug/dL INTERPRETIVE INFORMATION: Cortisol, Free by Equilibrium Dialysis/LC-MS/MS This test was developed and its performance characteristics determined by [facility]. It has not been cleared or approved by the US Food and Drug Administration. This test was performed in a CLIA certified laboratory and is intended for clinical purposes. Performed By: [facility] [address] [place] [address] Corporate Development Associate: Angel Potter MD, PhD CLIA Number: [id number] Performed By: #### F RCORT ####[facility] [id number] [place] [address] METANEPHRINES, FREE PLASMAon 01-27-2025 METANEPHRINE, PLASMA 46 pg/mL Normal 12-67 [facility] Comment on above: Order Comment: Speci galileo Type: BLOOD SPECIMENOrdering Facility: [facility] Address: [address] [place] [address] Result Comment: Refe rence Ranges: Hypertensive adult > or = 18 yrs old: 12-72 pg/mL Normotensive adult > or = 18 yrs old: 12-67 pg/mL Normotensive children < 18 yrs old: 10-95 pg/mL Performed By: #### P METAN ####[facility] [id number] [address] [place] NORMETANEPHRINE, PLASMA 106 pg/mL High 18-101 [facility] Comment on above: Order Comment: Speci men Type: BLOOD SPECIMENOrdering Facility: [facility] Address: [address] [place] [address] Result Comment: Refe rence Ranges: Hypertensive adult > or = 18 yrs old: 24-145 pg/mL Normotensive adult > or = 18 yrs old: 18-101 pg/mL Normotensive children < 18 yrs old: 22-83 pg/mL Methyldopa may cause false elevation of normetanephrine levels in this assay. If patient is on methyldopa, interpret results with caution. Performed By: #### P METAN ####[facility] [id number] [address] [facility]-20[email or web address] ISA [facility]OV[facility] ([id number]) 1970 F Date Time Provider Department 01/25/25 LADARIUS ARENAS During your visit today, we recorded the following information about you: Allergies As of Date: 01/25/2025 Noted Allergy Reaction CHLORTHALIDONE 10/12/2024 5 - Intolerance Comments: Hyponatremia and hypokalemia. AMLODIPINE 07/29/2024 5 - Intolerance Comments: Pedal edema LISINOPRIL 06/02/2024 3 - Cough Date Reviewed: 10/14/2024 Reviewed by: Iza Simms APRN.[facility] - Fully Assessed Reason for Visit: Appointment [186] Orders [681] Prescriptions as of 01/25/2025 - losartan (COZAAR) 100 mg tablet Take 1 tablet by mouth once daily. - spironolactone (ALDACTONE) 25 mg tablet Take 1 tablet by mouth two times a day. - doxazosin (CARDURA) 1 mg tablet Take 1 tablet by mouth daily at bedtime. - FLUoxetine (PROZAC) 40 mg capsule Take 1 capsule by mouth two times a day. In addition to 20mg capsule for total of 60mg daily - multivitamin tablet Take 1 tablet by mouth once daily. - famotidine (PEPCID) 20 mg tablet Take 1 tablet by mouth at bedtime as needed. - Xbvajxa-Xilhzjoqy-Gpmw tab Take by mouth. Problem List As Of Date 01/25/2025 Noted Resolved Dysthymia [F34.1] 08/23/2015 Well adult exam [Z00.00] 08/23/2015 Acid reflux [K21.9] 08/20/2022 Resistant hypertension [I1A.0] 10/06/2024 Encounter Status:Closed by CHICA TORIBIO on 01/25/25 Normal [facility] Chloride ?Tm Ur-sCncon 10-27 Chloride Unsp time (U) [Moles/Vol] 25 mmol/L Normal 16-250 [facility] Comment on above: Order Comment: Speci men Type: URINE SPECIMEN Ordering Facility: [facility] Address: [address] [place] [address] Performed By: #### 3 5677-4, 75206-7, 80916-8 #### [facility] CLIA [id number] [address] [place] [address] [place] Osmolality Uron 10-27-2024 Osmolality (U) [Osmolality] 150 mosm/kg Normal 50-1200 [facility] Comment on above: Order Comment: Speci men Type: URINE SPECIMEN Ordering Facility: [facility] Address: [address] [place] [address] Performed By: #### 3 5677-4, 81704-7, 27800-0 #### [facility] CLIA [id number] [address] [place] [address] [place] Potassium ?Tm Ur-sCncon - Potassium Unsp time (U) [Moles/Vol] 32.4 mmol/L Normal 10.0-160.0 [facility] Comment on above: Order Comment: Speci men Type: URINE SPECIMEN Ordering Facility: [facility] Address: [address] [place] [address] Performed By: #### 3 5677-4, 97752-7, 97810-7 #### [facility] CLIA [id number] [address] [place], [place] [address] [place] Renal function 2000 panelon 10-27-2024 Albumin [Mass/Vol] 4.4 g/dL Normal 3.9-4.9 [facility] Comment on above: Order Comment: Speci men Type: URINE SPECIMEN Ordering Facility: [facility] Address: [address] [place] [address] Performed By: #### 3 5677-4, 01995-6, 87204-1 #### [facility] CLIA [id number] [address] [place] [address] [place] Anion gap [Moles/Vol] 13 mmol/L Normal 8-15 [facility] Comment on above: Order Comment: Speci men Type: URINE SPECIMEN Ordering Facility: [facility] Address: [address] [place] [address] Performed By: #### 3 5677-4, 29060-2, 82032-3 #### [facility] CLIA [id number] [address] [place], [place] [address] [place] Calcium [Mass/Vol] 10.1 mg/dL Normal 8.5-10.2 [facility] Comment on above: Order Comment: Speci men Type: URINE SPECIMEN Ordering Facility: [facility] Address: [address] [place] [address] Performed By: #### 3 5677-4, 22125-1, 33106-2 #### [facility] CLIA [id number] [address] [place], [place] [address] [place] Chloride [Moles/Vol] 95 mmol/L Low 98-107 [facility] Comment on above: Order Comment: Speci men Type: URINE SPECIMEN Ordering Facility: [facility] Address: [address] [place] [address] Performed By: #### 3 5677-4, 55994-0, 97831-3 #### [facility] CLIA [id number] [address] [place] [address] [place] CO2 [Moles/Vol] 21 mmol/L Low 22-30 [facility] Comment on above: Order Comment: Speci men Type: URINE SPECIMEN Ordering Facility: [facility] Address: [address] [place] [address] Performed By: #### 3 5677-4, 15844-5, 34980-0 #### [facility] CLIA [id number] [address] [place] [address] [place] Creatinine [Mass/Vol] 0.70 mg/dL Normal 0.58-0.96 [facility] Comment on above: Order Comment: Speci men Type: URINE SPECIMEN Ordering Facility: [facility] Address: [address] [place] [address] Performed By: #### 3 5677-4, 12842-4, 77616-6 #### [facility] IA [id number] [address] [place] [address] [place] Creatinine and Glomerular filtration rate.predicted panel (S/P/Bld) 103 mL/min/1.73m??? Normal >=60 [facility] Comment on above: Order Comment: Speci men Type: URINE SPECIMEN Ordering Facility: [facility] Address: [address] [place] [address] Result Comment: Matilde mated Glomerular Filtration Rate (eGFR) is calculated using the 2020 CKD-EPI creatinine equation. This equation utilizes serum creatinine, sex, and age as parameters. The creatinine assay has traceable calibration to isotope dilution-mass spectrometry. Refer to KDIGO guidelines for clinical interpretation. In patients with unstable renal function, e.g. those with acute kidney injury, the eGFR may not accurately reflect actual GFR. Performed By: #### 3 5677-4, 54502-9, 99455-4 #### [facility] CLIA [id number] [address] [place], [place] [address] [place] Glucose [Mass/Vol] 86 mg/dL Normal 74-99 [facility] Comment on above: Order Comment: Speci men Type: URINE SPECIMEN Ordering Facility: [facility] Address: [address] [place] [address] Result Comment: The [place] Diabetes Association (ADA) provides guidance for cutoff values for fasting glucose and random glucose. The ADA defines fasting as no caloric intake for at least 8 hours. Fasting plasma glucose results between 100 to 125 mg/dL indicate increased risk for diabetes (prediabetes). Fasting plasma glucose results greater than or equal to 126 mg/dL meet the criteria for diagnosis of diabetes. In the absence of unequivocal hyperglycemia, results should be confirmed by repeat testing. In a patient with classic symptoms of hyperglycemia or hyperglycemic crisis, random plasma glucose results greater than or equal to 200 mg/dL meet the criteria for diagnosis of diabetes. Reference: Standards of Medical Care in Diabetes 2016, [place] Diabetes Association. Diabetes Care. 2016.39(Suppl 1). Performed By: #### 3 5677-4, 90179-9, 24699-2 #### [facility] CLIA [id number] [address] [place] [address] [place] Phosphate [Mass/Vol] 3.7 mg/dL Normal 2.7-4.8 [facility] Comment on above: Order Comment: Speci men Type: URINE SPECIMEN Ordering Facility: [facility] Address: [address] [place] [address] Performed By: #### 3 5677-4, 96051-5, 69013-8 #### [facility] CLIA [id number] [address] [place] [address] [place] Potassium [Moles/Vol] 4.4 mmol/L Normal 3.7-5.1 [facility] Comment on above: Order Comment: Speci men Type: URINE SPECIMEN Ordering Facility: [facility] Address: [address] [place] [address] Performed By: #### 3 5677-4, 40039-8, 27279-2 #### [facility] CLIA [id number] [address] [place] [address] [place] Sodium [Moles/Vol] 129 mmol/L Low 136-144 [facility] Comment on above: Order Comment: Speci men Type: URINE SPECIMEN Ordering Facility: [facility] Address: [address] [place] [address] Performed By: #### 3 5677-4, 54627-3, 59392-9 #### [facility] CLIA [id number] [address] [place] [address] [place] Urea nitrogen [Mass/Vol] 8 mg/dL Normal 7-21 [facility] Comment on above: Order Comment: Speci men Type: URINE SPECIMEN Ordering Facility: [facility] Address: [address] [place] [address] Performed By: #### 3 5677-4, 33267-6, 64755-4 #### [facility] CLIA [id number] [address] [place] [address] [place] Sodium ?Tm Ur-sCncon 025 Sodium Unsp time (U) [Moles/Vol] 26 mmol/L Normal 14-216 [facility] Comment on above: Order Comment: Speci men Type: URINE SPECIMEN Ordering Facility: [facility] Address: [address] [place] [address] Performed By: #### 3 5677-4, 33199-1, 31536-7 #### [facility] CLIA [id number] [address] [place] [address] [place] EXERCISE STRESS ECG (WITHOUT IMAGING)on 10-18-2024 EXERCISE STRESS ECG (WITHOUT IMAGING) Stress ECG Report: Exercise Stress ECG (without Imaging) [facility] Date of service: 10/18/2024 4:59:10 PM ANALYST Ordering physician: IZA SIMMS change control specialist: Andree Thomas RN Interpreting physician: Ilia Castellano MD Patient name: ISA TOVAR Age: 54 years Gender: F Height: 170.18 cm BSA: 1.80 m Weight: 68.49 kg BMI: 23.7 kg/m Indication: Encounter for screening for cardiovascular disorders Stress ECG Conclusion: Conclusion: Normal Prior exam comparison: No prior CC exam Stress ECG Summary: The patient's resting heart rate was 72 bpm and blood pressure was 122/70 mmHg. The patient exercised according to the Kody protocol. The estimated end-exercise MET level achieved using the FRIEND equation was 8.3, which is within the 75th to 90th percentile for age and sex. The estimated end-exercise MET level achieved using the previous ACSM equation was 10.2. The test was terminated due to general fatigue and the total exercise time was 9 minutes and 0 seconds. No symptoms provoked during stress. The maximum heart rate was 162 bpm, which is 98% of the predicted heart rate for age. This is an adequate heart rate response. Peak blood pressure was 162/80 mmHg. The double product achieved was [address]. Medications: Last Used SPIRONOLACTONE 10 Hours Resting ECG: Normal Sinus Rhythm Symptoms at rest: No symptoms Exercise Protocol: Kody Stress Exercise Table: +-----+ +--- -----+ +---+- --+---+----+---+----+ Stage Speed (MPH) Grade(%) Time (min) HR SYS SALLIE RPE SOB METS +-----+ +--- -----+ +---+- --+---+----+---+----+ 1 1.7 10.0 3.0 126 130 74 8.0 0.5 4.2 +-----+ +--- -----+ +---+- --+---+----+---+----+ 2 2.5 12.0 6.0 146 13 80 12.5 3.0 6.1 +-----+ +--- -----+ +---+- --+---+----+---+----+ +-----+ +--- ------+ +---+ ---+---+----+---+----+ Speed (MPH) Grade (%) Time (min) HR SYS SALLIE RPE SOB METS +-----+ +--- ------+ +---+ ---+---+----+---+----+ Final 3.4 14.0 9.00 162 162 80 16.0 5.0 8.3 +-----+ +--- ------+ +---+ ---+---+----+---+----+ Recovery Table: +------+ +-- ------+---+---+---+--- -+ Stage Speed (MPH) Grade(%) HR SYS SALLIE METS +------+ +-- ------+---+---+---+--- -+ 1 1.5 0.0 144 2.1 +------+ +-- ------+---+---+---+--- -+ 2 1.5 0.0 122 138 60 2.1 +------+ +-- ------+---+---+---+--- -+ 3 100 +------+ +-- ------+---+---+---+--- -+ 4 93 130 74 +------+ +-- ------+---+---+---+--- -+ Stress Observations: Resting HR: 72 bpm Peak HR: 162 bpm (98% MPHR) Resting BP: 122 / 70 mmHg Peak BP: 162 / 80 mmHg Total exercise time: 9 minutes 0 seconds METS achieved: 8.3 Chronotropic response index (CRI): 0.96 Heart rate recovery (HRR): 18 bpm Rate Pressure Product (RPP): 64883 Galeana Treadmill Score: 9.0 Stress Exercise Observations: Reason for test termination: general fatigue, Symptoms during test: No symptoms provoked during stress, Heart rate response: Adequate heart rate response, Normal CRI (>0.8 Not on B Yue) and Normal HRR (>12 or >[address]/EC), Blood pressure response: Normal BP response, ST segment and T wave changes: No ST changes, Galeana Treadmill Score: Normal Galeana Treadmill Score (>=5) and Arrhythmias: No arrhythmias Metabolic Exercise Data Variable: Observed value [Expected Range] HGI: 2.0 [>1.06 bpm/mmHg] IMPORTANT NOTE REGARDING ESTIMATED MET VALUES: Effective 05/07/2020, the reference equation for determining estimated MET values for [facility] stress tests changed. Comparison of test results before and after that date may show a change in estimated MET values for peak/max exercise despite a test duration that is similar in length. The validity of the new FRIEND equation for exercise METS is endorsed by the [place] [employer]. Jody P, John LA, Santo R, Silvio J, Toya J. New Generalized Equation for Predicting Maximal Oxygen Uptake (from the Fitness Registry and the Importance of Exercise National Database). The [place] Journal of Cardiology. 2017;120(4):688-692). Final ------ Stress Senior Manager Mmcoe Report: Exercise Stress ECG (without Imaging) [facility] Date of service: 10/18/2024 4:59:10 PM ANALYST Supervising physician: Ara Pruett MD PATIENT: Name: ISA TOVAR Age: 54 years Gender: F The supervising physician was in the department and immediately available. Final [facility] Image : [id number] (more content not included)... Normal [facility] Bacteria Ur Culton Bacteria identified Cx Nom (U) ORGANISM ID: 1 >=100,000 CFU/ml Escherichia coli ORGANISM ID: 1 (ESCHERICHIA COLI) -- ANTIBIOTIC INTERPRETATION TABITHA STATUS REFERENCE RANGE -- Ampicillin S <=2 F Susceptible <=8 , Intermediate >8 , Resistant >16 Cefazolin S <=4 F Susceptible 0-16 , Intermediate <0 or >16 , Resistant >16 For uncomplicated urinary tract infections, cefazolin results can be used to predict susceptibility or resistance to cephalexin. Ceftriaxone S <=1 F Susceptible <=1 , Intermediate >1 , Resistant >=4 Cefepime S <=1 F Susceptible <=2 , Susceptible-Dose Dependent >2 , Resistant >=16 Ertapenem S <=0.5 F Susceptible <=0.5 , Intermediate >.5 , Resistant >1 Meropenem S <=0.25 F Susceptible <=1 , Intermediate >1 , Resistant >2 Ampicillin/Sulbact S <=2 F Susceptible <=8 , Intermediate >8 , Resistant >16 Piperacillin/Tazobac S <=4 F Susceptible <16 , Susceptible-Dose Dependent >=16 , Resistant >=32 Gentamicin S <=1 F Susceptible <=2 , Intermediate >2 , Resistant >=8 Tobramycin S <=1 F Susceptible <4 , Intermediate >=4 , Resistant >=8 Trimeth sulfameth S <=20 F Susceptible <=40 , Resistant >40 Ciprofloxacin R >=4 F Susceptible <0.5 , Intermediate >=.5 , Resistant >=1 Nitrofurantoin S <=16 F Susceptible <=32 , Intermediate >32 , Resistant >64 Abnormal [facility] Comment on above: Performed By: #### 6 30-4 ####[facility] [id number] [address] [facility] ALEJOOVon 10-14-2024 CNOV Office Visit (MOLINAPWS ) ISA TOVAR ([id number]) 1970 F Date Time Provider Department 10/14/24 12:40 PM IZA SIMMS During your visit today, we recorded the following information about you: Pulse Blood pressure Weight 67/minute 124/78 68.8 kg Iza Simms APRN.SCREEN PRINTER HELPER 10/14/2024 1:58 PM Signed 10/14/2024 The patient consented to the use of [employer] software for draft documentation of the visit consistent with [facility]?s Notice of Privacy Practices. Isa is a 54-year-old female with a history of HTN, presenting for a BP check and follow-up after a recent hospitalization. Hypertension: - Recent medication changes by nephrology include initiation of spironolactone and discontinuiation of chlorthalidone. Also added on Cardura. Continued on Losartan 100 mg. - Home BP readings consistently below 130 mmHg since hospital discharge. - No known cause for previous resistance to antihypertensive medications. - Scheduled follow-up with nephrology on January 26. - Requests refill for losartan. Hospitalization Follow-Up: - Admitted on the due to low sodium and potassium levels. [employer] sent her to ER after getting lab work results. - Recent medication adjustments by nephrology included increasing chlorthalidone to 50 mg, which led to electrolyte imbalances. - [employer] advised discontinuing chlorthalidone and initiated spironolactone. - Reports headaches since hospital discharge; advised to increase electrolyte intake. - Recent lab work shows improved potassium levels; sodium still low but not critically. - No edema in lower extremities. UTI/Yeast Infection Symptoms: - Reports sensation of tickle at the end of urination. - Increased urinary frequency at night. - Recent antibiotic use for persistent cough. - No pruritus, dysuria, or abnormal vaginal discharge. PAST MEDICAL HISTORY Diagnosis Date Depression Current Outpatient Medications on File Prior to Visit Medication Sig spironolactone (ALDACTONE) 25 mg tablet Take 1 tablet by mouth two times a day. doxazosin (CARDURA) 1 mg tablet Take 1 tablet by mouth daily at bedtime. FLUoxetine (PROZAC) 40 mg capsule Take 1 capsule by mouth two times a day. In addition to 20mg capsule for total of 60mg daily multivitamin tablet Take 1 tablet by mouth once daily. famotidine (PEPCID) 20 mg tablet Take 1 tablet by mouth at bedtime as needed. Hdhvmma-Wmbugjvwi-Vxfu tab Take by mouth. No current facility-administered medications on file prior to visit. Head: (+) headaches Genitourinary: (+) urinary frequency (nighttime), (-) dysuria, (-) vaginal pruritus, (-) vaginal discharge BP 124/78 (BP Site: Left Arm, BP Position: Sitting, BP Cuff Size: Regular Adult) Pulse 67 Wt 68.8 kg (151 lb 9.6 oz) SpO2 98% BMI 23.74 kg/m? GENERAL: NAD, alert and oriented. SKIN: Unremarkable, no rash or skin lesions. HEAD: Normocephalic. LUNGS: Clear to auscultation bilaterally, no wheezes/rhonchi/rales. HEART: Regular rate and rhythm, no murmurs. No ectopy. EXTREMITIES: Normal, no deformities, no skin discoloration, no edema. Labs: - Serum Electrolytes: - Sodium: 126 mmol/L (low) - Potassium: within normal limits - Serum Electrolytes: - Sodium: 117 mmol/L (low) - Potassium: low (exact value not provided) - Hormonal Laboratory Testing: No abnormalities noted 1. Dysuria (R30.0) 2. Urinary urgency (R39.15) - Symptoms likely secondary to recent antibiotic use. UTI vs yeast infection. - Ordered urinalysis; if signs of infection are present, will prescribe an antibiotic. UA + for small amount of blood and trace leuks. Will send for culture but treat for yeast infection. - Prescribed Diflucan: Take 1 tablet orally; if symptoms persist after 3 days, take 1 additional tablet. 3. Primary hypertension (I10) - Previously resistant to antihypertensive therapy; now well-controlled with current regimen. - Recent addition of spironolactone by nephrology has stabilized blood pressure readings to <130 mmHg systolic. - Discontinued chlorthalidone 50 mg; reduced to 25 mg before starting spironolactone. - Refill for losartan sent to [facility] for a 90-day supply. - Advised to monitor blood pressure at home a few times a week. 4. Hyponatremia (E87.1) - Recent lab results show sodium level at 126 mEq/L, improved from 117 mEq/L. - Advised to increase hydration with electrolyte-rich fluids rather than plain water. - Will continue to monitor sodium levels; repeat labs if headaches persist. 5. Nonintractable episodic headache, unspecified headache type (R51.9) - Likely related to recent hyponatremia and changes in blood pressure. - Advised increased hydration with electrolytes to address potential dehydration. - Monitor symptoms; if no improvement by next week, will consider further evaluation. 6 (more content not included)... Normal [facility] UA DIP, URINE (POC)on 2024 BILIRUBIN UA (POCT) Negative Negative [facility] CLARITY UA (POCT) Clear [facility] COLOR UA (POCT) Yellow [facility] GLUCOSE UA (POCT) Negative Negative mg/dL [facility] Hemoglobin Ql (U) Small Abnormal Negative [facility] Interpretation and review of laboratory results Abnormal [facility] KETONE UA (POCT) Negative Negative mg/dL [facility] LEUKOCYTES UA (POCT) Trace Abnormal Negative [facility] NITRITE UA (POCT) Negative Negative [facility] PH UA (POCT) 7.5 4.5 - 8.0 [facility] Protein Ql (U) Negative Negative mg/dL [facility] SPECIFIC GRAVITY UA (POCT) 1.015 1.005 - 1.030 [facility] UROBILINOGEN UA (POCT) 0.2 Sil l E.U./dL [facility] Location:[address], [place], [place], [address] [place] [address] POINT OF CARE [facility] ALDOSTERONE/DIRECT RENIN RAT IOon 10-13-2024 CLINT RENIN RATIO 3.5 Normal <3.8 [facility] Comment on above: Order Comment: Speci men Type: BLOOD SPECIMENOrdering Facility: [facility] Address: [address] [place] [address] Result Comment: A ra tamie of aldosterone in ng/dL to direct renin in pg/mL greater than or equal to 3.8 is a positive screening test result for primary aldosteronism, when aldosterone is greater than or equal to 15 ng/dL. Performed By: #### A LDREN ####[facility] LABCLIA [id number] [place] [address] [place] Aldosterone [Mass/Vol] 15.6 ng/dL Normal 0.0-<35.4 [facility] Comment on above: Order Comment: Howard gurrola Type: BLOOD SPECIMENOrdering Facility: [facility] Address: [address] [place] [address] Result Comment: The reference interval for serum/plasma aldosterone is based on a normal sodium intake and upright position. High sodium intake may suppress aldosterone and low sodium intake may increase aldosterone. The supine reference interval is <23.7 ng/dL. A ratio of aldosterone in ng/dL to direct renin in pg/mL greater than or equal to 3.8 is a positive screening test result for primary aldosteronism, when aldosterone is greater than or equal to 15 ng/dL. Performed By: #### A LDREN ####[facility] LABCLIA [id number] [place] [address] [place] DIRECT RENIN 4.5 pg/mL Normal 3.6-81.6 [facility] Comment on above: Order Comment: Speci men Type: BLOOD SPECIMENOrdering Facility: [facility] Address: [address] [place] [address] Result Comment: The reference interval for direct renin is based on an upright position. The supine reference intervals are: Age <41 years: 3.2-33.2 pg/mL Age >=41 years: 2.5-45.1 pg/mL A ratio of aldosterone in ng/dL to direct renin in pg/mL greater than or equal to 3.8 is a positive screening test result for primary aldosteronism, when aldosterone is greater than or equal to 15 ng/dL. Performed By: #### A LDREN ####[facility] LABCLIA [id number] [place] [address] [place] PATIENT UPRIGHT OR SUPINE Upright Normal [facility] Comment on above: Order Comment: Riveri men Type: BLOOD SPECIMENOrdering Facility: [facility] Address: [address] [place] [address] Performed By: #### A LDREN ####[facility] LABCLIA [id number] [place] [address] [place] Renal function 2000 panelon 10-13-2024 Albumin [Mass/Vol] 4.2 g/dL Normal 3.9-4.9 [facility] Comment on above: Order Comment: Speci men Type: BLOOD SPECIMENOrdering Facility: [facility] Address: [address] [place] [address] Performed By: #### 2 4362-6 ####[facility] LABCLIA [id number] [address] [address] [place] Anion gap [Moles/Vol] 12 mmol/L Normal 8-15 [facility] Comment on above: Order Comment: Speci men Type: BLOOD SPECIMENOrdering Facility: [facility] Address: [address] [place] [address] Performed By: #### 2 4362-6 ####[facility] LABCLIA [id number] [facility] [place] [id number] [place] Calcium [Mass/Vol] 9.9 mg/dL Normal 8.5-10.2 [facility] Comment on above: Order Comment: Speci men Type: BLOOD SPECIMENOrdering Facility: [facility] Address: [address] [place] [address] Performed By: #### 2 4362-6 ####[facility] LABCLIA [id number] [place] [id number] [place] Chloride [Moles/Vol] 92 mmol/L Low 98-107 [facility] Comment on above: Order Comment: Speci men Type: BLOOD SPECIMENOrdering Facility: [facility] Address: [address] [place], [place] [address] Performed By: #### 2 4362-6 ####[facility] LABCLIA [id number] [facility] [place] [id number] [place] CO2 [Moles/Vol] 22 mmol/L Normal 22-30 [facility] Comment on above: Order Comment: Speci men Type: BLOOD SPECIMENOrdering Facility: [facility] Address: [address] [place] [address] Performed By: #### 2 4362-6 ####[facility] LABCLIA [id number] [place] [id number] [place] Creatinine [Mass/Vol] 0.68 mg/dL Normal 0.58-0.96 [facility] Comment on above: Order Comment: Speci men Type: BLOOD SPECIMENOrdering Facility: [facility] Address: [address] [place] [address] Performed By: #### 2 4362-6 ####[facility] LABIA [id number] [place] [address] [place] Creatinine and Glomerular filtration rate.predicted panel (S/P/Bld) 104 mL/min/1.73m??? Normal >=60 [facility] Comment on above: Order Comment: Howard gurrola Type: BLOOD SPECIMENOrdering Facility: [facility] Address: [address] [place] [address] Result Comment: Matilde mated Glomerular Filtration Rate (eGFR) is calculated using the 2020 CKD-EPI creatinine equation. This equation utilizes serum creatinine, sex, and age as parameters. The creatinine assay has traceable calibration to isotope dilution-mass spectrometry. Refer to KDIGO guidelines for clinical interpretation. In patients with unstable renal function, e.g. those with acute kidney injury, the eGFR may not accurately reflect actual GFR. Performed By: #### 2 4362-6 ####[facility] LABIA [id number] [place] [address] [place] Glucose [Mass/Vol] 78 mg/dL Normal 74-99 [facility] Comment on above: Order Comment: Howard gurrola Type: BLOOD SPECIMENOrdering Facility: [facility] Address: [address] [place] [address] Result Comment: The [place] Diabetes [employer] (ADA) provides guidance for cutoff values for fasting glucose and random glucose. The ADA defines fasting as no caloric intake for at least 8 hours. Fasting plasma glucose results between 100 to 125 mg/dL indicate increased risk for diabetes (prediabetes). Fasting plasma glucose results greater than or equal to 126 mg/dL meet the criteria for diagnosis of diabetes. In the absence of unequivocal hyperglycemia, results should be confirmed by repeat testing. In a patient with classic symptoms of hyperglycemia or hyperglycemic crisis, random plasma glucose results greater than or equal to 200 mg/dL meet the criteria for diagnosis of diabetes. Reference: Standards of Medical Care in Diabetes 2016, [place] [employer] Association. Diabetes Care. 2016.39(Suppl 1). Performed By: #### 2 4362-6 ####[facility] LABCLIA [id number] [address] [place] [address] [place] Phosphate [Mass/Vol] 3.5 mg/dL Normal 2.7-4.8 [facility] Comment on above: Order Comment: Speci men Type: BLOOD SPECIMENOrdering Facility: [facility] Address: [address] [place], [place] [address] Performed By: #### 2 4362-6 ####[facility] LABCLIA [id number] [address] [place] [address] [place] Potassium [Moles/Vol] 4.5 mmol/L Normal 3.7-5.1 [facility] Comment on above: Order Comment: Speci men Type: BLOOD SPECIMENOrdering Facility: [facility] Address: [address] [place] [address] Performed By: #### 2 4362-6 ####[facility] LABIA [id number] [address] [place] [address] [place] Sodium [Moles/Vol] 126 mmol/L Low 136-144 [facility] Comment on above: Order Comment: Speci men Type: BLOOD SPECIMENOrdering Facility: [facility] Address: [address] [place], [place] [address] Performed By: #### 2 4362-6 ####[facility] LABIA [id number] [address] [address] [place] Urea nitrogen [Mass/Vol] 10 mg/dL Normal 7-21 [facility] Comment on above: Order Comment: Speci men Type: BLOOD SPECIMENOrdering Facility: [facility] Address: [address] [place], [place] [address] Performed By: #### 2 4362-6 ####[facility] LABCLIA [id number] [address] [place] [address] [place] Anion gap in Serum or Plasma Ordered By: Jonathan Brasher on 03-22-2025 Anion gap [Moles/Vol] 12 mmol/L - [facility] BUN/creatinine ratioOrdered By: Jonathan Brasher on 10-09-2024 Urea nitrogen/Creatinine [Mass ratio] 13.0 mg/mg 05-[address] [facility] Basic Metabolic Profile (BMP )on 10-09-2024 BUN/CRE 13.0 RATIO Normal 05-[address] [facility] Comment on above: Performed By: #### L 100.0100, L500.2500, L501.5200 #### [facility] [address] [place], [address] Calcium [Mass/Vol] 9.1 mg/dL Normal 7.6-11.0 [facility] Comment on above: Performed By: #### L 100.0100, L500.2500, L501.5200 #### [facility] [address] [place], [address] Chloride [Moles/Vol] 92 mmol/L Low 98-108 [facility] Comment on above: Performed By: #### L 100.0100, L500.2500, L501.5200 #### [facility] [address] [place], [address] CO2 [Moles/Vol] 21.1 mmol/L Normal 21.0-32.[address] [facility] Comment on above: Performed By: #### L 100.0100, L500.2500, L501.5200 #### [facility] [address] [place], [address] Creatinine [Mass/Vol] 0.62 mg/dL Low 0.70-1.20 [facility] Comment on above: Performed By: #### L 100.0100, L500.2500, L501.5200 #### [facility] [address] [place], [address] ECRCL 100.87 ml/min Normal 50-[address] [facility] Comment on above: Performed By: #### L 100.0100, L500.2500, L501.5200 #### [facility] [address] [place], [address] GAP 12 Normal 5-[address] [facility] Comment on above: Performed By: #### L 100.0100, L500.2500, L501.5200 #### [facility] [address] [place], [address] GFR/1.73 sq M.predicted among non-blacks MDRD (S/P/Bld) [Vol rate/Area] 106 mL/min/{1.73_m2} Normal >[address] [facility] Comment on above: Result Comment: mL/m in/1.73m2 CKD-EPI Creatinine Equation (2020) Performed By: #### L 100.0100, L500.2500, L501.5200 #### [facility] [address] [place], [address] Glucose [Mass/Vol] 97 mg/dL Normal 70-99 [facility] Comment on above: Performed By: #### L 100.0100, L500.2500, L501.5200 #### [facility] [address] [place], [address] Potassium [Moles/Vol] 3.3 mmol/L Normal 3.3-5.1 [facility] Comment on above: Performed By: #### L 100.0100, L500.2500, L501.5200 #### [facility] [address] [place], [address] Sodium [Moles/Vol] 125 mmol/L Low 133-145 [facility] Comment on above: Performed By: #### L 100.0100, L500.2500, L501.5200 #### [facility] [address] [place], [address] Urea nitrogen [Mass/Vol] 8 mg/dL Normal 4-[address] [facility] Comment on above: Performed By: #### L 100.0100, L500.2500, L501.5200 #### [facility] [address] [place], [address] BUN/CRE 16.8 RATIO Normal 10-[address] [facility] Comment on above: Performed By: #### L 500.2500 #### [facility] [address] [place], [address] Calcium [Mass/Vol] 9.0 mg/dL Normal 7.6-11.0 [facility] Comment on above: Performed By: #### L 500.2500 #### [facility] [address] [place], [address] Chloride [Moles/Vol] 90 mmol/L Low 98-108 [facility] Comment on above: Performed By: #### L 500.2500 #### [facility] [address] [place], [address] CO2 [Moles/Vol] 19.6 mmol/L Low 21.0-32.[address] [facility] Comment on above: Performed By: #### L 500.2500 #### [facility] [address] [place], [address] Creatinine [Mass/Vol] 0.69 mg/dL Low 0.70-1.20 [facility] Comment on above: Performed By: #### L 500.2500 #### [facility] [address] [place], [address] ECRCL 90.64 ml/min Normal 50-[address] [facility] Comment on above: Performed By: #### L 500.2500 #### [facility] [address] [place], [address] GAP 12 Normal 5-[address] [facility] Comment on above: Performed By: #### L 500.2500 #### [facility] [address] [place], [address] GFR/1.73 sq M.predicted among non-blacks MDRD (S/P/Bld) [Vol rate/Area] 103 mL/min/{1.73_m2} Normal >[address] [facility] Comment on above: Result Comment: mL/m in/1.73m2 CKD-EPI Creatinine Equation (2020) Performed By: #### L 500.2500 #### [facility] [address] [place], [address] Glucose [Mass/Vol] 105 mg/dL High 70-99 [facility] Comment on above: Performed By: #### L 500.2500 #### [facility] [address] [place], [address] Potassium [Moles/Vol] 3.3 mmol/L Normal 3.3-5.1 [facility] Comment on above: Performed By: #### L 500.2500 #### [facility] [address] [place], [address] Sodium [Moles/Vol] 122 mmol/L Low 133-145 [facility] Comment on above: Performed By: #### L 500.2500 #### [facility] [address] [place], [address] Urea nitrogen [Mass/Vol] 12 mg/dL Normal 4-[address] [facility] Comment on above: Performed By: #### L 500.2500 #### [facility] [address] [place], [address] CBC-Complete Blood Cnt No Di ffon 10-09-2024 Erythrocyte distribution width (RBC) [Ratio] 11.3 % Low 11.6-14.[address] [facility] Comment on above: Performed By: #### L 100.0500 #### [facility] [address] [place], [address] Hematocrit (Bld) [Volume fraction] 30.2 % Low 37-[address] [facility] Comment on above: Performed By: #### L 100.0500 #### [facility] [address] [place], [address] Hemoglobin (Bld) [Mass/Vol] 11.2 g/dL Low 12.0-15.[address] [facility] Comment on above: Performed By: #### L 100.0500 #### [facility] [address] [place], [address] MCH (RBC) [Entitic mass] 32.7 pg High 27.0-32.[address] [facility] Comment on above: Performed By: #### L 100.0500 #### [facility] [address] [place], [address] MCHC (RBC) [Mass/Vol] 37.1 g/dL High 32-36 [facility] Comment on above: Performed By: #### L 100.0500 #### [facility] [address] [place], [address] MCV (RBC) [Entitic vol] 88.0 fL Normal 81-99 [facility] Comment on above: Performed By: #### L 100.0500 #### [facility] [address] [place], [address] Platelet mean volume (Bld) [Entitic vol] 8.8 fL Normal 6.2-12.[address] [facility] Comment on above: Performed By: #### L 100.0500 #### [facility] [address] [place], [address] Platelets (Bld) [#/Vol] 240 10*3/uL Normal 150-[address] [facility] Comment on above: Performed By: #### L 100.0500 #### [facility] [address] [place], [address] RBC (Bld) [#/Vol] 3.43 10*6/uL Low 4.2-5.4 [facility] Comment on above: Performed By: #### L 100.0500 #### [facility] [address] [place], [address] RDW SD 36.2 fl Normal 35.1-43.[address] [facility] Comment on above: Performed By: #### L 100.0500 #### [facility] [address] [place], [address] WBC (Bld) [#/Vol] 2.9 10*3/uL Low 4.4-11.0 [facility] Comment on above: Performed By: #### L 100.0500 #### [facility] [address] [facility] [place], [address] Carbon dioxide, total [Moles /volume] in Central venous bloodOrdered By: Jonathan Brasher on 10-09-2024 CO2 [Moles/Vol] 21.1 mmol/L 21.0-32.[address] [facility] Chloride assayOrdered By: Alvin Brasher on 10-09-2024 Chloride [Moles/Vol] 92 mmol/L Low 98-108 [facility] Discharge Instructionon 09-[address] [facility] Medical Records Department [address] [place] [address] Instructions for Home/Discharge Instructions 10/09/24 1030 MR#: [id number] Acct: [id number] Name: ISA TOVAR Rep #: [id number] : 1970 54 From: Mitchell Tobias MD PCP: Dr. Brandon Monet, DO Status:ADM IN Discharge Instructions Diet Discharge Diet: Low fat / Low cholesterol DC O2, CPAP, BIPAP needs Home O2 Discharge instructions: No Dressing / Incision Discharge Activity: Return to Normal Activity Dressing / Incision Call your doctor if you observe: Fever of 101 or Higher, Shortness of breath, Dizziness, Fainting spells, Swelling in the ankles, Chest pain and Increased palpitations (irregular heartbeat) Follow Up Care Test Results: Test results from this visit will be discussed in further detail at your follow-up appointment, if applicable. Discharge Plan Admission Admit Date/Time: 10/08/24 15:00 Attending Provider: Mitchell Tobias Primary Care Provider: Brandon Monet Consulting Providers: Jonathan Brasher Instructions Patient Instructions: ED Hyponatremia Additional Instructions / Restrictions: Follow-up with your primary care doctor in 3 to 5 days to monitor your blood pressure in order a BMP to monitor your sodium levels. We did stop your chlorthalidone which is likely the cause of your low sodium level. Discharge Orders/Prescriptions Prescriptions: Continued fluoxetine 40 mg capsule 40 mg PO DAILY doxazosin 1 mg tablet 1 mg PO QHS spironolactone 25 mg tablet 25 mg PO BID losartan 100 mg tablet 100 mg PO DAILY famotidine [Acid Controller] 20 mg tablet 20 mg PO BID mnfxkjj-cjdzpmwfi-tyev [id number] mg tablet 3 tab PO BID artifi.tears(hypromell ose)(PF) 1.7 % drops with applicator 1 drp EACH EYE DAILY PRN (Reason: dry eye(s)) Discontinued chlorthalidone 25 mg tablet 25 mg PO DAILY Patient Comments: PT ER DR TOLD TO STOP Referrals / Follow Up: Brandon Monet DO [Primary Care Provider] - Within 1 Week Disposition Disposition (needs filled in before D/C Order can be placed): Home, Self Care 10/09/24 1035 Mitchell Tobias MD CC: Dr. Jonathan Brasher DO; Dr. Brandon Monet DO Signed Normal [facility] Erythrocyte distribution wid th ratioOrdered By: Jonathan Brasher on 10-09-2024 Erythrocyte distribution width (RBC) [Ratio] 11.3 % Low 11.6-14.[address] [facility] Erythrocyte distribution wid th standard deviationOrdered By: Jonathan Brasher on 10-09-2024 Erythrocyte distribution width (RBC) [Entitic vol] 36.2 fL 35.1-43.[address] [facility] Estimation of creatinine pedro aranceOrdered By: Jonathan Brasher on 10-09-2024 Estimated Creatinine Clearance Calc 100.87 ml/min 50-[address] [facility] GFR/1.73 sq M.predicted sara g non-blacks MDRD (S/P/Bld) [Vol rate/Area]Ordered By: Jonathan Brasher on 10-09-2024 Estimated GFR (MDRD) Non-Af Amer 106 >60 [facility] [facility] Comment on above: mL/min/1.73m2 CKD-EP I Creatinine Equation (2020) Hematocrit Auto (Bld) [Volum e fraction]Ordered By: Jonathan Brasher on 10-09-2024 Hematocrit (Bld) [Volume fraction] 30.2 % Low 37-[address] [facility] Hemoglobin measurementOrdere d By: Jonathan Brasher on 10-09-2024 Hemoglobin (Bld) [Mass/Vol] 11.2 g/dL Low 12.0-15.[address] [facility] MCV (mean corpuscular volume ) determinationOrdered By: Jonathan Brasher on 10-09-2024 MCV (RBC) [Entitic vol] 88.0 fL 81-99 [facility] Mean corpuscular hemoglobin (MCH) determinationOrdered By: Jonathan Brasher on 10-09-2024 MCH (RBC) [Entitic mass] 32.7 pg High 27.0-32.[address] [facility] Mean corpuscular hemoglobin concentration (MCHC) determinationOrdered By: Jonathan Brasher on 10-09-2024 MCHC (RBC) [Mass/Vol] 37.1 g/dL High 32-36 [facility] Mean platelet volume determi nationOrdered By: Jonathan Brasher on 10-09-2024 Platelet mean volume (Bld) [Entitic vol] 8.8 fL 6.2-12.[address] [facility] Platelet countOrdered By: Alvin Brasher on 10-09-2024 Platelets (Bld) [#/Vol] 240 10*3/uL 150-[address] [facility] Potassium (Unsp spec) [Mass/ Vol]Ordered By: Jonathan Brasher on 10-09-2024 Potassium [Moles/Vol] 3.3 mmol/L 3.3-5.1 [facility] RBC Auto (Bld) [#/Vol]Ordere d By: Jonathan Brasher on 10-09-2024 RBC (Bld) [#/Vol] 3.43 10*6/uL Low 4.2-5.4 [facility] Serum creatinine measurement (mass/volume)Ordered By: Jonathan Brasher on 10-09-2024 Creatinine [Mass/Vol] 0.62 mg/dL Low 0.70-1.20 [facility] Serum glucose measurement (m ass/volume)Ordered By: Jonathan Brasher on 10-09-2024 Glucose [Mass/Vol] 97 mg/dL 70-99 [facility] Serum or plasma calcium ramon urement (mass/volume)Ordered By: Jonathan Brasher on 10-09-2024 Calcium [Mass/Vol] 9.1 mg/dL 7.6-11.0 [facility] Serum or plasma urea nitroge n measurement (mass/volume)Ordered By: Jonathan Brasher on 10-09-2024 Urea nitrogen [Mass/Vol] 8 mg/dL 4-[address] [facility] Sodium levelOrdered By: Guicho Brasher on 10-09-2024 Sodium [Moles/Vol] 125 mmol/L Low 133-145 [facility] White blood cell (WBC) count Ordered By: Jonathan Brasher on 10-09-2024 WBC (Bld) [#/Vol] 2.9 10*3/uL Low 4.4-11.0 [facility] 12 Lead EKGon 10-08-2024 12 Lead EKG [facility] Cardiovascular Services [address] [place] [address] 12 Lead EKG 10/08/24 1528 MR#: [id number] Acct: [id number] Name: ISA TOVAR Rep #: [id number] : 1970 54 From: Mike Scott MD Attending Dr: Dr. Mitchell Tobias MD Status : DIS IN Ordering Dr: Iftikhar Mendoza DO Date: 10/08/24 Location: U Sex: F C Admitted: 10/08/24 Test Reason : HTN Blood Pressure : */* mmHG Vent. Rate : 64 BPM Atrial Rate : 64 BPM P-R Int : 188 ms QRS Dur : 92 ms QT Int : 488 ms P-R-T Axes : 42 69 74 degrees QTcB Int : 503 ms Normal sinus rhythm Prolonged QT Abnormal ECG Confirmed by GURU PECK, MIKE ([id number]), video editor PEARL GILBERT ([id number]) on 10/11/2024 6:46:08 AM Referred By: Confirmed By: MIKE SCOTT MD 10/11/24 0646 Date Mike Scott MD CC: Dr. Brandon Monet DO; Dr. Mitchell Tobias MD; Dr. Iftikhar Mendoza DO Signed Normal [facility] Absolute neutrophil countOrd ered By: Iftikhar Mendoza on 10-08-2024 Neutrophils (Bld) [#/Vol] 3.1 10*3/uL 2.0-7.[address] [facility] Anion gap in Serum or Plasma Ordered By: Iftikhar Mendoza on 10-08-2024 Anion gap [Moles/Vol] 13 mmol/L 12-02 [facility] BUN/creatinine ratioOrdered By: Iftikhar Mendoza on 10-08-2024 Urea nitrogen/Creatinine [Mass ratio] 12.2 mg/mg - [facility] Basic Metabolic Profile (BMP )on 10-08-2024 BUN/CRE 9.5 RATIO Low - [facility] Comment on above: Performed By: #### L 100.0100, L500.2500, L501.5200 #### [facility] Laboratory [address] [place], [address] Calcium [Mass/Vol] 9.7 mg/dL Normal 7.6-11.0 [facility] Comment on above: Performed By: #### L 100.0100, L500.2500, L501.5200 #### [facility] [address] [place], [address] Chloride [Moles/Vol] 85 mmol/L Low 98-108 [facility] Comment on above: Performed By: #### L 100.0100, L500.2500, L501.5200 #### [facility] [address] [place], [address] CO2 [Moles/Vol] 23.8 mmol/L Normal 21.0-32.[address] [facility] Comment on above: Performed By: #### L 100.0100, L500.2500, L501.5200 #### [facility] [address] [place], [address] Creatinine [Mass/Vol] 0.66 mg/dL Low 0.70-1.20 [facility] Comment on above: Performed By: #### L 100.0100, L500.2500, L501.5200 #### [facility] [address] [place], [address] ECRCL 94.76 ml/min Normal 50-[address] [facility] Comment on above: Performed By: #### L 100.0100, L500.2500, L501.5200 #### [facility] [address] [place], [address] GAP 12 Normal 5-[address] [facility] Comment on above: Performed By: #### L 100.0100, L500.2500, L501.5200 #### [facility] [address] [place], [address] GFR/1.73 sq M.predicted among non-blacks MDRD (S/P/Bld) [Vol rate/Area] 104 mL/min/{1.73_m2} Normal >[address] [facility] Comment on above: Result Comment: mL/m in/1.73m2 CKD-EPI Creatinine Equation (2020) Performed By: #### L 100.0100, L500.2500, L501.5200 #### [facility] [address] [place], [address] Glucose [Mass/Vol] 106 mg/dL High 70-99 [facility] Comment on above: Performed By: #### L 100.0100, L500.2500, L501.5200 #### [facility] [address] [place], [address] Potassium [Moles/Vol] 3.1 mmol/L Low 3.3-5.1 [facility] Comment on above: Performed By: #### L 100.0100, L500.2500, L501.5200 #### [facility] [address] [place], [address] Sodium [Moles/Vol] 121 mmol/L Low 133-145 [facility] Comment on above: Performed By: #### L 100.0100, L500.2500, L501.5200 #### [facility] [address] [place], [address] Urea nitrogen [Mass/Vol] 6 mg/dL Normal 4-[address] [facility] Comment on above: Performed By: #### L 100.0100, L500.2500, L501.5200 #### [facility] [address] [place], [address] BUN/CRE 12.2 RATIO Normal 10-[address] [facility] Comment on above: Performed By: #### L 100.0100, L500.2500, L501.5200 #### [facility] [address] [place], [address] Calcium [Mass/Vol] 10.1 mg/dL Normal 7.6-11.0 [facility] Comment on above: Performed By: #### L 100.0100, L500.2500, L501.5200 #### [facility] [address] [place], [address] Chloride [Moles/Vol] 78 mmol/L Low 98-108 [facility] Comment on above: Performed By: #### L 100.0100, L500.2500, L501.5200 #### [facility] [address] [place], [address] CO2 [Moles/Vol] 25.6 mmol/L Normal 21.0-32.[address] [facility] Comment on above: Performed By: #### L 100.0100, L500.2500, L501.5200 #### [facility] [address] [place], [address] Creatinine [Mass/Vol] 0.66 mg/dL Low 0.70-1.20 [facility] Comment on above: Performed By: #### L 100.0100, L500.2500, L501.5200 #### [facility] [address] [place], [address] ECRCL 94.76 ml/min Normal 50-[address] [facility] Comment on above: Performed By: #### L 100.0100, L500.2500, L501.5200 #### [facility] [address] [place], [address] GAP 13 Normal 5-[address] [facility] Comment on above: Performed By: #### L 100.0100, L500.2500, L501.5200 #### [facility] [address] [place], [address] GFR/1.73 sq M.predicted among non-blacks MDRD (S/P/Bld) [Vol rate/Area] 104 mL/min/{1.73_m2} Normal >[address] [facility] Comment on above: Result Comment: mL/m in/1.73m2 CKD-EPI Creatinine Equation (2020) Performed By: #### L 100.0100, L500.2500, L501.5200 #### [facility] [address] [place], [address] Glucose [Mass/Vol] 106 mg/dL High 70-99 [facility] Comment on above: Performed By: #### L 100.0100, L500.2500, L501.5200 #### [facility] [address] [place], [address] Potassium [Moles/Vol] 2.5 mmol/L Invalid Interpretation Code 3.3-5.[address] [facility] Comment on above: Result Comment: Hemo lysis present, Results??could be affected. ?? Critical Result(s) Called at: by:??Results read back by same. Performed By: #### L 100.0100, L500.2500, L501.5200 #### [facility] [address] [place], [address] Sodium [Moles/Vol] 117 mmol/L Invalid Interpretation Code 133-[address] [facility] Comment on above: Result Comment: Crit ical Result(s) Called at:1447 TO EMILLER by: KCLAPPER??Results read back by same. Performed By: #### L 100.0100, L500.2500, L501.5200 #### [facility] [address] [place], [address] Urea nitrogen [Mass/Vol] 8 mg/dL Normal 4-[address] [facility] Comment on above: Performed By: #### L 100.0100, L500.2500, L501.5200 #### [facility] [address] [place], [address] Basophil percentageOrdered B y: Iftikhar Mendoza on 10-08-2024 Basophils/100 WBC (Bld) 0.6 % 0-1 [facility] Bilirubin Test strip Ql (U)O rdered By: Iftikhar Mendoza on 10-08-2024 Bilirubin Ql (U) Negative Negative [facility] CBC W/Diff, Automatedon 03-2 Absolute Lymph 1.24 X10 3/uL Normal 0.83-4.[address] [facility] Comment on above: Performed By: #### L 100.0100, L500.2500, L501.5200 #### [facility] [address] [place], [address] Absolute Neut 3.1 X10 3/uL Normal 2.0-7.[address] [facility] Comment on above: Performed By: #### L 100.0100, L500.2500, L501.5200 #### [facility] [address] [place], [address] Basophils/100 WBC (Bld) 0.6 % Normal 0-1 [facility] Comment on above: Performed By: #### L 100.0100, L500.2500, L501.5200 #### [facility] [address] [place], [address] Eosinophils/100 WBC (Bld) 1.9 % Normal 0-[address] [facility] Comment on above: Performed By: #### L 100.0100, L500.2500, L501.5200 #### [facility] [address] [place], [address] Erythrocyte distribution width (RBC) [Ratio] 11.3 % Low 11.6-14.[address] [facility] Comment on above: Performed By: #### L 100.0100, L500.2500, L501.5200 #### [facility] [address] [place], [address] Hematocrit (Bld) [Volume fraction] 33.4 % Low 37-[address] [facility] Comment on above: Performed By: #### L 100.0100, L500.2500, L501.5200 #### [facility] [address] [place], [address] Hemoglobin (Bld) [Mass/Vol] 12.4 g/dL Normal 12.0-15.[address] [facility] Comment on above: Performed By: #### L 100.0100, L500.2500, L501.5200 #### [facility] [address] [place], [address] IG% 0.400 Normal 0.0-0.[address] [facility] Comment on above: Result Comment: IG% - Immature Granulocytes (promyelocytes, myelocytes and metamyelocytes) > 1% indicates that a LEFT SHIFT is Present. Performed By: #### L 100.0100, L500.2500, L501.5200 #### [facility] [address] [place], [address] Lymphocytes/100 WBC (Bld) 25.9 % Normal 19-[address] [facility] Comment on above: Performed By: #### L 100.0100, L500.2500, L501.5200 #### [facility] [address] [place], [address] MCH (RBC) [Entitic mass] 32.7 pg High 27.0-32.[address] [facility] Comment on above: Performed By: #### L 100.0100, L500.2500, L501.5200 #### [facility] [address] [place], [address] MCHC (RBC) [Mass/Vol] 37.1 g/dL High 32-36 [facility] Comment on above: Performed By: #### L 100.0100, L500.2500, L501.5200 #### [facility] [address] [place], [address] MCV (RBC) [Entitic vol] 88.1 fL Normal 81-99 [facility] Comment on above: Performed By: #### L 100.0100, L500.2500, L501.5200 #### [facility] [address] [place], [address] Monocytes/100 WBC (Bld) 7.1 % Normal 0-10 [facility] Comment on above: Performed By: #### L 100.0100, L500.2500, L501.5200 #### [facility] [address] [place], [address] Neutrophils/100 WBC (Bld) 64.1 % Normal 47-[address] [facility] Comment on above: Performed By: #### L 100.0100, L500.2500, L501.5200 #### [facility] [address] [place], [address] Nucleated RBC (Bld) [#/Vol] 0 10*3/uL Normal 0-[address] [facility] Comment on above: Performed By: #### L 100.0100, L500.2500, L501.5200 #### [facility] [address] [place], [address] Platelet mean volume (Bld) [Entitic vol] 8.7 fL Normal 6.2-12.[address] [facility] Comment on above: Performed By: #### L 100.0100, L500.2500, L501.5200 #### [facility] [address] [place], [address] Platelets (Bld) [#/Vol] 297 10*3/uL Normal 150-[address] [facility] Comment on above: Performed By: #### L 100.0100, L500.2500, L501.5200 #### [facility] [address] [place], [address] RBC (Bld) [#/Vol] 3.79 10*6/uL Low 4.2-5.4 [facility] Comment on above: Performed By: #### L 100.0100, L500.2500, L501.5200 #### [facility] [address] [place], [address] RDW SD 36.2 fl Normal 35.1-43.[address] [facility] Comment on above: Performed By: #### L 100.0100, L500.2500, L501.5200 #### [facility] [address] [place], [address] WBC (Bld) [#/Vol] 4.8 10*3/uL Normal 4.4-11.0 [facility] Comment on above: Performed By: #### L 100.0100, L500.2500, L501.5200 #### [facility] [address] [place], [address] Chase 10-08-2024 CNPN Telephone (KIDMMN) LAISA ([id number]) 1970 F Date Time Provider Department 10/08/24 ADITYA BROWN During your visit today, we recorded the following information about you: Aditya Brown MD 10/08/2024 6:33 AM Addendum Attempted to call the patient multiple times to discuss their labs with them: She was noted to have low sodium (118) and hypokalemia (2.7) with low osmolality 245. Seen over video visit 10/06 for resistant HTN. Currently on chlorthalidone and fluoxetine. Given the severity of her hyponatremia she needs to go to the ED for evaluation. Will try to contact the patient again in the morning. Discussed with rajani. Numbers tried: [phone] (Home Phone) [phone] (Work Phone) Attempted to call the patient again at [phone]. will fwd to AA and staff Addendum: I called the patient a couple of times at [phone] and also her at [phone] but there was no answer. I left her a voicemail message for her and also for her with lab results showing very low blood level of sodium and potassium and instructions for her to go to the emergency room for evaluation and treatment. Department of Kidney Medicine [facility] [place] Ladarius Mayer MD Staff Nephrology and Hypertension [facility] Pager# [phone] Allergies As of Date: 10/08/2024 Noted Allergy Reaction AMLODIPINE 07/29/2024 5 - Intolerance Comments: Pedal edema LISINOPRIL 06/02/2024 3 - Cough Date Reviewed: 10/06/2024 Reviewed by: Ladarius Arenas MD - Fully Assessed Prescriptions as of 10/08/2024 - chlorthalidone (HYGROTON) 25 mg tablet Take 1 tablet by mouth once daily. - spironolactone (ALDACTONE) 25 mg tablet Take 1 tablet by mouth two times a day. - doxazosin (CARDURA) 1 mg tablet Take 1 tablet by mouth daily at bedtime. - losartan (COZAAR) 100 mg tablet Take 1 tablet by mouth once daily. - FLUoxetine (PROZAC) 40 mg capsule Take 1 capsule by mouth two times a day. In addition to 20mg capsule for total of 60mg daily - multivitamin tablet Take 1 tablet by mouth once daily. - famotidine (PEPCID) 20 mg tablet Take 1 tablet by mouth at bedtime as needed. - Krugxsz-Eqhgrmynn-Tpcp tab Take by mouth. Problem List As Of Date 10/08/2024 Noted Resolved Dysthymia [F34.1] 08/23/2015 Well adult exam [Z00.00] 08/23/2015 Acid reflux [K21.9] 08/20/2022 Resistant hypertension [I1A.0] 10/06/2024 Encounter Status:Closed by LADARIUS ARENAS on 10/08/24 [facility] Carbon dioxide, total [Moles /volume] in Central venous bloodOrdered By: Iftikhar Mendoza on 10-08-2024 CO2 [Moles/Vol] 25.6 mmol/L 21.0-32.[address] [facility] Chest 1 View (Portable)on Chest 1 View (Portable) [facility] Imaging Services [address] [place] [id number] Chest 1 View (Portable) MR#: [id number] Acct: [id number] Name: ISA TOVAR Rep #: [id number] : 1970 F 54 From: Marco Antonio Stewart MD PCP: Dr. Brandon Monet, DO Status: REG ER Study: Chest 1 View (Portable) Date of Exam: 10/08/24 Exam# [id number] Ordering Dr: Iftikhar Mendoza DO EXAM: XR Chest, 1 View CLINICAL INDICATION: COUGH TECHNIQUE: Frontal view of the chest. COMPARISON: No relevant prior studies available. FINDINGS: LUNGS AND PLEURAL SPACES: Unremarkable. No consolidation. No pneumothorax. HEART: Unremarkable. No cardiomegaly. MEDIASTINUM: Unremarkable. Normal mediastinal contour. BONES/JOINTS: Unremarkable. No acute fracture. RAD/Chest 1 View (Portable) IMPRESSION: No acute cardiopulmonary process. Reading [facility] CC: Dr. Brandon Monet DO; Dr. Iftikhar Mendoza DO Plug Wirer: Signed Normal [facility] Chloride assayOrdered By: Michell Mendoza on 10-08-2024 Chloride [Moles/Vol] 78 mmol/L Low 98-108 [facility] Emergency Department Summary on 10-08-2024 Emergency Department Summary [facility] Medical Records Department [address] [place] [address] Emergency Department Summary 10/08/24 MR#: [id number] Acct: [id number] Name: ISA TOVAR Rep #: [id number] : 1970 54 From: Iftikhar Mendoza DO PCP: Dr. Brandon Monet DO Status:ADM IN Location: [place] [address] HPI History of Present Illness Chief Complaint: Abn Labs Detail of Chief Complaint: Abnormal labs Narrative Narrative: Patient presents to the emergency department complaint of abnormal labs today. Patient states that she has been dealing with elevated blood pressure since April. She was referred to a sample sawyer whom she had a virtual visit with 2 days ago. She had lab workup ordered which she had drawn yesterday and today she was called and told to come to the ER because her potassium and her sodium were low. Patient describes feeling generally weak. She has had a cough for some time for which she was recently treated with Tessalon Perles and Augmentin. She is currently on chlorthalidone and started spironolactone and doxazosin yesterday. Patient also takes losartan 100 mg daily. Denies diarrhea. She states that her cough sometimes causes her to vomit [facility] Medical History (Updated 10/08/24 @ 14:[address] Iftikhar Mendoza DO) Hypertension Medical History no medical history Home Medications ???Medication ???Instructions ???Recorded ???Last Taken ???Type fluoxetine 40 mg capsule 40 mg PO DAILY 05/30/24 Unknown Hi story clonidine HCl 0.1 mg tablet 0.1 mg PO Q8H PRN hypertension 2 0 08/07/24 Unknown Rx days #6 tabs losartan 50 mg tablet 50 mg PO DAILY 08/07/24 Unknown Hi story Allergy/AdvReac Type Severity Reaction Status Date / Time amlodipine AdvReac Intermediate edema Verified 10/08/24 12:43 lisinopril AdvReac Mild cough Verified 10/08/24 12:43 Family History no significant family his Surgical History (Updated 08/07/24 @ 18:32 by Lalita Winchester) H/O: hysterectomy Surgical History no surgical history Social History Smoking Status: Never smoker ROS ROS ED Review of Systems ROS Unobtainable: other Constitutional Constitutional ED: Reports lethargy; Denies chills, fever(s), sweats or weight loss Eyes Eyes: Denies blurry vision, change in vision or diplopia ENT ENT ED: Denies rhinorrhea or sore throat Cardiovascular Cardiovascular: Denies chest pain, orthopnea or racing heartbeat Respiratory/Chest Respiratory/Chest: Reports cough; Denies dyspnea, dyspnea on exertion, orthopnea or sputum Gastrointestinal Gastrointestinal: Denies abdominal pain, diarrhea, nausea or vomiting Genitourinary Genitourinary ED: Denies dysuria, hematuria or urinary frequency Musculoskeletal Musculoskeletal: Denies arthralgias, back pain, myalgias or neck pain Integumentary Denies abscess, Abrasions or rash Neurologic Neurologic: Reports weakness; Denies headache(s) Psychiatric Psychiatric: Denies anxiety, depression or suicidal thoughts Endocrine Endocrinology: Denies polydipsia, polyphagia or polyuria Hematologic/Lymphatic Hematologic/Lymphatic: Denies easy bleeding, easy bruising or lymphadenopathy Allergic/Immunologic Allergic/Immunologic ED: Denies mouth swelling, tongue swelling or urticaria EXAM Physical Exam Const Vital Signs: 10/08/24 12:43 10/08/24 13:41 10/08/24 13:58 Temperature 96.8 F L Temperature Source Temporal Pulse Rate 80 70 Respiratory Rate 18 16 Respiratory Pattern Normal Blood Pressure 147/94 H 144/75 H Blood Pressure Mean 111 98 Pulse Ox 98 98 Oxygen Delivery Method Room Air Room Air 10/08/24 14:00 Temperature Temperature Source Pulse Rate 72 Respiratory Rate 11 L Respiratory Pattern Blood Pressure Blood Pressure Mean Pulse Ox 98 Oxygen Delivery Method Positive well nourished and well developed General Appearance ED: well developed and NAD HEENT Reports TM's clear and moist mucous membranes normocephalic and atraumatic; Negative for trauma or tenderness Tympanic Membrane ED: Yes TM's clear Eyes PERRL and EOMs intact bilaterally General Eye ED: Negative for pale conjunctiva or scleral icterus Neck no lymphadenopathy, supple and no JVD General: Negative for tenderness Chest Wall inspection of chest normal and palpation of chest normal Chest: Negative for tenderness Resp normal respiratory effort and clear to auscultation bilaterally Effort and Inspection: Negative for respiratory distress or pain with movement Auscultation: Negative for rhonchi, wheezes or diminished lung sounds Cardio regular rate, regular rhythm, S1 normal heart sound, S2 normal heart sound and no murmurs Peripheral Pulses: pulses 2+ throughout GI normal to inspection, nondistended, normoactive bowel sounds, soft to (more content not included)... Normal [facility] Eosinophil percentageOrdered By: Iftikhar Mendoza on 10-08-2024 Eosinophils/100 WBC (Bld) 1.9 % 0-[address] [facility] Epithelial cells.squamous LM Ql (Urine sed)Ordered By: Iftikhar Mendoza on 10-08-2024 Epithelial cells.squamous LM.HPF (Urine sed) [#/Area] 0 /[HPF] 5-[address] [facility] Erythrocyte distribution wid th ratioOrdered By: Iftikhar Mendoza on 10-08-2024 Erythrocyte distribution width (RBC) [Ratio] 11.3 % Low 11.6-14.[address] [facility] Erythrocyte distribution wid th standard deviationOrdered By: Iftikhar Mendoza on 10-08-2024 Erythrocyte distribution width (RBC) [Entitic vol] 36.2 fL 35.1-43.[address] [facility] Estimation of creatinine pedro aranceOrdered By: Iftikhar Mendoza on 10-08-2024 Estimated Creatinine Clearance Calc 94.76 ml/min 50-[address] [facility] GFR/1.73 sq M.predicted sara g non-blacks MDRD (S/P/Bld) [Vol rate/Area]Ordered By: Iftikhar Mendoza on 10-08-2024 Estimated GFR (MDRD) Non-Af Amer 104 >[address] [facility] Comment on above: mL/min/1.73m2 CKD-EP I Creatinine Equation (2020) Glucose Ql (U)Ordered By: Michell wong Armandoyaneth on 10-08-2024 Urine Glucose (UA) Normal mg/dl Normal [facility] H AND P Exam - Hospitaliston 10-08-2024 H&P Exam - Hospitalist [facility] Medical Records Department [address] [place] [address] H P Exam - Hospitalist 10/08/24 1458 MR#: [id number] Acct: [id number] Name: ISA TOVAR Rep #: [id number] : 1970 54 From: Jonathan Brasher DO PCP: Dr. Brandon Monet, DO Status:ADM IN Location: [place] [address] HPI - General General Date of Admission: 10/08/24 Date of Service: 10/08/24 Chief Complaint: Abnormal labs HPI Narrative ISA TOVAR, is a 54 F who presented to [facility] ED on 10/08/2024 with abnormal outpatient labs. Patient was found on BMP to have a sodium of 117 and potassium of 2.5. Last sodium was 134 on 08/07/24, has no prior history of hyponatremia. Patient has been following with nephrology since April for resistant hypertension. Secondary hypertension workup has been negative. She has had several medication changes since April. She was recently started on chlorthalidone 25 mg daily in early to mid August, and dose was then up to 50 mg daily in early September. She reports lightheadedness with mental fogginess and headache over the past few weeks. Today she feels similar to previous days but she is alert and oriented x 3 and conversing normally. Given no acute mental status change noted, she was given 1 L of normal saline and potassium supplementation, and hospitalist was contacted for admission. I saw the patient at bedside in the ED. Patient was very pleasant and sitting back comfortably in bed, conversing normally and in no acute distress. She stated that she felt slightly better after receiving the IV fluids earlier. She otherwise feels well, denies any acute pain or discomfort. No other acute concerns at this time. [facility] Medical History (Updated 10/08/24 @ 16:[address] Jonathan Brasher, DO) Hypertension Medical History no medical history Home Medications ???Medication ???Instructions ???Recorded ???Last Taken ???Type fluoxetine 40 mg capsule 40 mg PO DAILY 05/30/24 10/08/24 H istory artifi.tears(hypromell ose)(PF) 1.7 1 drp EACH EYE DAILY PRN dry eye (s) 10/08/24 10/08/24 History % eye drops with applicator [id number] 333 mg-133 3 tab PO BID 10/08/24 10/08/24 Hi story mg-5 mg tablet chlorthalidone 25 mg tablet 25 mg PO DAILY 10/08/24 10/08/24 H istory doxazosin 1 mg tablet 1 mg PO QHS 10/08/24 10/07/24 Hist ory famotidine 20 mg tablet (Acid 20 mg PO BID 10/08/24 10/08/24 His tory Controller) losartan 100 mg tablet 100 mg PO DAILY 10/08/24 10/08/24 History spironolactone 25 mg tablet 25 mg PO BID 10/08/24 10/08/24 His tory Allergy/AdvReac Type Severity Reaction Status Date / Time amlodipine AdvReac Intermediate edema Verified 10/08/24 12:43 lisinopril AdvReac Mild cough Verified 10/08/24 12:43 Family History no significant family his Surgical History (Updated 08/07/24 @ 18:32 by Lalita Winchester) H/O: hysterectomy Surgical History no surgical history Social History Smoking Status: Never smoker ROS Constitutional Constitutional: Denies chills, fatigue, fever(s) or weakness Eyes Eyes: Denies change in vision Cardiovascular Cardiovascular: Denies chest pain Respiratory/Chest Respiratory/Chest: Denies cough or shortness of breath at rest Gastrointestinal Gastrointestinal: Denies abdominal pain, constipation, diarrhea, nausea or vomiting Genitourinary Genitourinary: Denies dysuria Musculoskeletal Musculoskeletal: Denies arthralgias or myalgias Neurologic Neurologic: Reports headache(s); Denies dizziness Vital Signs Vital Signs Vital Signs: 10/08/24 12:43 10/08/24 13:41 10/08/24 13:58 Temperature 96.8 F L Temperature Source Temporal Pulse Rate 80 70 Respiratory Rate 18 16 Respiratory Pattern Normal Blood Pressure 147/94 H 144/75 H Blood Pressure Mean 111 98 Pulse Ox 98 98 Oxygen Delivery Method Room Air Room Air 10/08/24 14:00 Temperature Temperature Source Pulse Rate 72 Respiratory Rate 11 L Respiratory Pattern Blood Pressure Blood Pressure Mean Pulse Ox 98 Oxygen Delivery Method Weight Weight: 67.948 kg Body Mass Index (BMI) 23.4 Physical Exam Const alert, oriented x3, no apparent distress, average body habitus, healthy appearing and well nourished Constitutional Narrative: Pleasant middle-age female, sitting back comfortably in bed, conversing normally, in no acute distress. General Appearance: cooperative, comfortable, well kempt and well developed HEENT normocephalic, head/scalp atraumatic, hearing grossly normal bilaterally, nasal mucous membranes and turbinates normal and moist oral mucous membranes Eyes PERRL, EOMs intact bilaterally and conjunctivae normal Neck full ROM Chest inspection of chest no (more content not included)... Normal [facility] Hematocrit Auto (Bld) [Volum e fraction]Ordered By: Iftikhar Mendoza on 10-08-2024 Hematocrit (Bld) [Volume fraction] 33.4 % Low 37-[address] [facility] Hemoglobin measurementOrdere d By: Iftikhar Mendoza on 10-08-2024 Hemoglobin (Bld) [Mass/Vol] 12.4 g/dL 12.0-15.[address] [facility] Immature granulocytes/100 WB C Auto (Bld)Ordered By: Iftikhar Mendoza on 10-08-2024 Immature granulocytes/100 WBC (Bld) 0.400 % 0.0-0.[address] [facility] Comment on above: IG% - Immature Granu locytes (promyelocytes, myelocytes and metamyelocytes) > 1% indicates that a LEFT SHIFT is Present. Ketones Test strip Ql (U)Ord ered By: Iftikhar Mendoza on 10-08-2024 Ketones Ql (U) Negative Negative [facility] Lymphocytes Auto (Unsp spec) [#/Vol]Ordered By: Iftikhar Mendoza on 10-08-2024 Lymphocytes (Bld) [#/Vol] 1.24 10*3/uL 0.83-4.[address] [facility] Lymphocytes/100 WBC Auto (Un sp spec)Ordered By: Iftikhar Mendoza on 10-08-2024 Lymphocytes/100 WBC (Bld) 25.9 % 19-[address] [facility] MCV (mean corpuscular volume ) determinationOrdered By: Iftikhar Mendoza on 10-08-2024 MCV (RBC) [Entitic vol] 88.1 fL 81-99 [facility] Magnesiumon 10-08-2024 Magnesium [Mass/Vol] 2.1 mg/dL Normal 1.5-2.2 [facility] Comment on above: Performed By: #### L 100.0100, L500.2500, L501.5200 #### [facility] Laboratory [facility] [place], [address] Magnesium (Unsp spec) [Mass/ Vol]Ordered By: Iftikhar Mendoza on 10-08-2024 Magnesium [Mass/Vol] 2.1 mg/dL 1.5-2.2 [facility] Mean corpuscular hemoglobin (MCH) determinationOrdered By: Iftikhar Mendoza on 10-08-2024 MCH (RBC) [Entitic mass] 32.7 pg High 27.0-32.[address] [facility] Mean corpuscular hemoglobin concentration (MCHC) determinationOrdered By: Iftikhar Mendoza on 10-08-2024 MCHC (RBC) [Mass/Vol] 37.1 g/dL High 32-36 [facility] Mean platelet volume determi nationOrdered By: Iftikhar Mendoza on 10-08-2024 Platelet mean volume (Bld) [Entitic vol] 8.7 fL 6.2-12.[address] [facility] Microscopic analysis of urin e for red blood cells (RBC)Ordered By: Iftikhar Mendoza on 10-08-2024 Urine RBC 0-5 SEEN /hpf 0-[address] [facility] Monocyte percentageOrdered B y: Iftikhar Mendoza on 10-08-2024 Monocytes/100 WBC (Bld) 7.1 % 0-10 [facility] Mucus LM Ql (Urine sed)Order ed By: Iftikhar Mendoza on 10-08-2024 Mucus Ql (Urine sed) 0 SEEN /hpf [facility] Neutrophil percentageOrdered By: Iftikhar Mendoza on 10-08-2024 Neutrophils/100 WBC (Bld) 64.1 % 47-[address] [facility] Nitrite Test strip Ql (U)Ord ered By: Iftikhar Mendoza on 10-08-2024 Nitrite Ql (U) Negative Negative [facility] Nucleated red blood cell per centageOrdered By: Iftikhar Mendoza on 10-08-2024 Nucleated RBC/100 WBC (Bld) [Ratio] 0 % 0-[address] [facility] Osmolality (U) [Osmolality]O rdered By: Jonathan Brasher on 10-08-2024 Urine Osmolality 138 mOsm/KG >[address] [facility] Comment on above: Normal Urine Referen ce Ranges Random: 50 - 1200 mOsm/kg H20 depending on fluid intake Random: >850 mOsm/kg after 12 hour fluid restriction 24 hour: ~300 - 900 mOsm/kg H2O Osmolality, Serumon 10-09-19 25 OSMOLALITY,SER 253 mOsm/KG Low 275-[address] [facility] Comment on above: Performed By: #### L 501.7300 #### [facility] [address] [place], [place], [id number] Osmolality, Urineon 10-09-19 25 OSMOLALITY,UR 138 mOsm/KG Normal [facility] Comment on above: Result Comment: Normal Urine Reference Ranges Random: 50 - 1200 mOsm/kg H20 depending on fluid intake Random: >850 mOsm/kg after 12 hour fluid restriction 24 hour: 300 - 900 mOsm/kg H2O Performed By: #### L 501.7400, L501.5500 #### [facility] [address] [facility] [place], [address] Osmolality, serumOrdered By: Jonathan Brasher on 10-08-2024 Serum Osmolality 253 mOsm/KG Low 275-[address] [facility] Phosphoruson 10-08-2024 Phosphate [Mass/Vol] 2.6 mg/dL Low 2.7-4.5 [facility] Comment on above: Performed By: #### L 100.0100, L500.2500, L501.5200 #### [facility] [address] [place], [address] Platelet countOrdered By: Michell Mendoza on 10-08-2024 Platelets (Bld) [#/Vol] 297 10*3/uL 150-[address] [facility] Potassium (Unsp spec) [Mass/ Vol]Ordered By: Aliza Kelly on 10-08-2024 Potassium [Moles/Vol] 2.5 mmol/L Low 3.3-5.1 [facility] Comment on above: Hemolysis present, R esults could be affected. Critical Result(s) Called at: by: Results read back by same. Protein Test strip Ql (U)Ord ered By: Aliza Kelly on 10-08-2024 Protein Ql (U) Negative Negative [facility] RBC Auto (Bld) [#/Vol]Ordere d By: Alizaus Robertsyaneth on 10-08-2024 RBC (Bld) [#/Vol] 3.79 10*6/uL Low 4.2-5.4 [facility] Serum creatinine measurement (mass/volume)Ordered By: Iftikhar Mendoza on 10-08-2024 Creatinine [Mass/Vol] 0.66 mg/dL Low 0.70-1.20 [facility] Serum glucose measurement (m ass/volume)Ordered By: Iftikhar Mendoza on 10-08-2024 Glucose [Mass/Vol] 106 mg/dL High 70-99 [facility] Serum or plasma calcium ramon urement (mass/volume)Ordered By: Iftikhar Mendoza on 10-08-2024 Calcium [Mass/Vol] 10.1 mg/dL 7.6-11.0 [facility] Serum or plasma urea nitroge n measurement (mass/volume)Ordered By: Iftikhar Mendoza on 10-08-2024 Urea nitrogen [Mass/Vol] 8 mg/dL 4-[address] [facility] Serum phosphorus measurement Ordered By: Jonathan Brasher on 10-08-2024 Phosphorus Level 2.6 mg/dL Low 2.7-4.[address] [facility] Sodium levelOrdered By: Richie rhoda Kelly on 10-08-2024 Sodium [Moles/Vol] 117 mmol/L Low 133-145 [facility] Comment on above: Critical Result(s) C alled at:1447 TO EMILLER by: KCLAPPER Results read back by same. Urinalysis, Completeon 10-08 RBC 0-5 SEEN Normal 0-[address] [facility] Comment on above: Order Comment: CLEAN CATCH Performed By: #### L 400.0001 #### [facility] [address] [place], [address] EPI,SQUAMOUS 0-5 SEEN Normal 5-[address] [facility] Comment on above: Order Comment: CLEAN CATCH Performed By: #### L 400.0001 #### [facility] [address] [place], [address] WBC 0-5 SEEN Normal 0-[address] [facility] Comment on above: Order Comment: CLEAN CATCH Performed By: #### L 400.0001 #### [facility] [address] [place], [address] BACTERIA 0 SEEN Normal None Seen [facility] Comment on above: Order Comment: CLEAN CATCH Performed By: #### L 400.0001 #### [facility] [address] [place], [address] Mucus Ql (Urine sed) 0 SEEN Normal [facility] Comment on above: Order Comment: CLEAN CATCH Performed By: #### L 400.0001 #### [facility] [address] [place], [address] Urine Sodiumon 10-08-2024 Sodium (U) [Moles/Vol] 39 mmol/L Normal Not Establ. [facility] Comment on above: Performed By: #### L 501.7400, L501.5500 #### [facility] [address] [place], [address] Urine blood detectionOrdered By: Remus Mendoza on 10-08-2024 Urine Occult Blood Negative Negative [facility] Urine clarityOrdered By: Rem us Ungyaneth on 10-08-2024 Clarity (U) Clear Clear [facility] Urine color determinationOrd ered By: Iftikhar Mendoza on 10-08-2024 Color (U) Yellow Yellow [facility] Urine leukocyte esterase det ection by dipstickOrdered By: Iftikhar Mendoza on 10-08-2024 Leukocyte esterase Test strip Ql (U) Negative Negative [facility] Urine pHOrdered By: Iftikhar Myers nayr on 10-08-2024 pH (U) 8.0 [pH] 5.0 - 8.[address] [facility] Urine sediment bacteria coun t by microscopy (number/high power field)Ordered By: Iftikhar Mendoza on 10-08-2024 Bacteria LM.HPF (Urine sed) [#/Area] 0 /[HPF] None Seen [facility] Urine sodium measurement (mo les/volume)Ordered By: Jonathan Brasher on 10-08-2024 Sodium (U) [Moles/Vol] 39 mmol/L Not Establ. [facility] Urine specific gravity measu rementOrdered By: Iftikhar Mendoza on 10-08-2024 Specific gravity (U) [Rel density] 1.010 1.002-1.[address] [facility] Urobilinogen Ql (U)Ordered B y: Iftikhar Mendoza on 10-08-2024 Urine Urobilinogen Normal mg/dl Normal [facility] White blood cell (WBC) count Ordered By: Iftikhar Mendoza on 10-08-2024 WBC (Bld) [#/Vol] 4.8 10*3/uL 4.4-11.0 [facility] White blood cell countOrdere d By: Iftikhar Mendoza on 10-08-2024 Urine WBC 0-5 SEEN /hpf 0-[address] [facility] ACTH Plas-mCncon 10-07-2024 Corticotropin (P) [Mass/Vol] 33.7 pg/mL Normal 7.2-63.3 [facility] Comment on above: Order Comment: Speci men Type: BLOOD SPECIMEN Ordering Facility: [facility] Address: [address] [place] [address] Result Comment: ACTH Reference Range: 7-10 am: 7.2 - 63.3 pg/mL Performed By: #### 2 141-0 #### [facility] CLIA [id number] [address] [place], [place] [address] [address] [place] ADH/ARGININE VASOPRSon 10-07 ARGININE VASOPRESSIN 1.1 pg/mL Normal 0.0-6.9 [facility] Comment on above: Order Comment: Speci men Type: BLOOD SPECIMENOrdering Facility: [facility] Address: [address] [place] [address] Result Comment: INTE RPRETIVE INFORMATION: Arginine Vasopressin Hormone This test was developed and its performance characteristics determined by [facility]. It has not been cleared or approved by the US Food and Drug Administration. This test was performed in a CLIA certified laboratory and is intended for clinical purposes. Performed By: [facility] [address] [place] [address] Corporate Development Associate: Angel Potter MD, PhD CLIA Number: [id number] Performed By: #### A DH ####[facility] [id number] [place] [address] ALBUMIN/CREATININE RATIO, UR INEon 10-07-2024 Albumin DL <= 20 mg/L (U) [Mass/Vol] mg/dL Normal [facility] Comment on above: Order Comment: Speci men Type: URINE SPECIMEN Ordering Facility: [facility] Address: [address] [place] [address] Performed By: #### 3 5677-4, 79302-7, 59079-6 #### [facility] CLIA [id number] [address] [place] [address] STATES OF [facility] Albumin/Creatinine (U) [Mass ratio] Normal [facility] Comment on above: Order Comment: Speci men Type: URINE SPECIMEN Ordering Facility: [facility] Address: [address] [place] [address] Result Comment: Not calculated Adult Male and Female Nephrotic Criteria: <30 mg/g is considered normal to mildly increased 30-300 mg/g is considered moderately increased >300 mg/g is considered severely increased KDIGO. (2013). KDIGO 2012 Clinical Practice Guideline for the Evaluation and Management of Chronic Kidney Disease. Official Journal of the International Society of Nephrology, 3(1), 1-150. Performed By: #### 3 5677-4, 38146-9, 07277-3 #### [facility] CLIA [id number] [address] [place], [place] [address] [place] [address] [place] CATECHOLAMINES FRAon 10-07-2 025 CATECHOLAMINE INTERPRETATION PLASMA See Note Normal [facility] Comment on above: Order Comment: Speci men Type: BLOOD SPECIMENOrdering Facility: [facility] Address: [address] [place] [address] Result Comment: INTE RPRETIVE INFORMATION: Catecholamines Panel, Plasma Small increases in catecholamines (less than 2 times the upper reference limit) are usually the result of physiological stimuli, drugs, or improper specimen collection. Significant elevation of one or more catecholamines (2 or more times the upper reference limit) is associated with an increased probability of a neuroendocrine tumor. Measurement of plasma or urine fractionated metanephrines provides better diagnostic sensitivity than measurement of catecholamines. Lower catecholamine concentrations are observed in specimens collected from supine adults. To convert to picograms per milliliter (pg/mL), multiply the reported concentration for Dopamine by 0.153, Epinephrine by 0.183, and Norepinephrine by 0.169. Access complete set of age- and/or gender-specific reference intervals for this test in the [facility] Test Directory ([employer]). This test was developed and its performance characteristics determined by [facility]. It has not been cleared or approved by the US Food and Drug Administration. This test was performed in a CLIA certified laboratory and is intended for clinical purposes. Performed By: [facility] [address] [place] [address] Corporate Development Associate: Angel Potter MD, PhD CLIA Number: [id number] Performed By: #### P LCAT ####[facility] [id number] [place] [address] DOPAMINE 151 pmol/L Normal <=240 [facility] Comment on above: Order Comment: Speci men Type: BLOOD SPECIMENOrdering Facility: [facility] Address: [address] [place] [address] Result Comment: INTE RPRETIVE INFORMATION: Dopamine Seated (15 min) less than or equal to 240 pmol/L Supine (30 min) less than or equal to 240 pmol/L Performed By: #### P LCAT ####[facility] [id number] [place] [address] EPINEPHRINE (P) 153 pmol/L Normal <=330 [facility] Comment on above: Order Comment: Speci men Type: BLOOD SPECIMENOrdering Facility: [facility] Address: [address] [place] [address] Result Comment: INTE RPRETIVE INFORMATION:Epinephrine Seated (15 min) less than or equal to 330 pmol/L Supine (30 min) less than or equal to 265 pmol/L Performed By: #### P LCAT ####[facility] [id number] [place] [address] NOREPINEPHRINE 2702 pmol/L Normal 7900-4192 [facility] Comment on above: Order Comment: Speci men Type: BLOOD SPECIMENOrdering Facility: [facility] Address: [address] [place] [address] Result Comment: INTE RPRETIVE INFORMATION: Norepinephrine Seated (15 min) 1050 - 4800 pmol/L Supine (30 min) 680 - 3100 pmol/L Performed By: #### P LCAT ####[facility] [id number] [place] [address] CBC W Auto Differential pane l (Bld)on 10-07-2024 Basophils (Bld) [#/Vol] 0.03 10*3/uL Normal <0.11 [facility] Comment on above: Order Comment: Speci men Type: BLOOD SPECIMENOrdering Facility: [facility] Address: [address] [place] [address] Performed By: #### 5 7021-8 ####[facility] [id number] [place] [address] [place] Basophils/100 WBC (Bld) 0.8 % Normal C [facility] Comment on above: Order Comment: Speci men Type: BLOOD SPECIMENOrdering Facility: [facility] Address: [address] [place] [address] Performed By: #### 5 7021-8 ####[facility] [id number] [place] [address] [place] Differential cell count method Nom (Bld) Auto Normal [facility] Comment on above: Order Comment: Speci men Type: BLOOD SPECIMENOrdering Facility: [facility] Address: [address] [place] [address] Performed By: #### 5 7021-8 ####[facility]IA [id number] [place] [address] [place] Eosinophils (Bld) [#/Vol] 0.06 10*3/uL Normal <0.46 [facility] Comment on above: Order Comment: Speci men Type: BLOOD SPECIMENOrdering Facility: [facility] Address: [address] [place] [address] Performed By: #### 5 7021-8 ####[facility] [id number] [place] [address] [place] Eosinophils/100 WBC (Bld) 1.5 % Normal [facility] Comment on above: Order Comment: Speci men Type: BLOOD SPECIMENOrdering Facility: [facility] Address: [address] [place] [address] Performed By: #### 5 7021-8 ####[facility] [id number] [place] [address] [place] Erythrocyte distribution width (RBC) [Ratio] 11.2 % Low 11.5-15.0 [facility] Comment on above: Order Comment: Speci men Type: BLOOD SPECIMENOrdering Facility: [facility] Address: [address] [place] [address] Performed By: #### 5 7021-8 ####[facility] [id number] [place] [address] [place] Hematocrit (Bld) [Volume fraction] 33.8 % Low 36.0-46.0 [facility] Comment on above: Order Comment: Speci men Type: BLOOD SPECIMENOrdering Facility: [facility] Address: [address] [place] [address] Performed By: #### 5 7021-8 ####[facility] [id number] [place] [address] [place] Hemoglobin (Bld) [Mass/Vol] 12.2 g/dL Normal 11.5-15.5 [facility] Comment on above: Order Comment: Speci men Type: BLOOD SPECIMENOrdering Facility: [facility] Address: [address] [place] [address] Performed By: #### 5 7021-8 ####[facility] [id number] [place] [address] [place] Immature granulocytes (Bld) [#/Vol] 10*3/uL Normal <0.10 [facility] Comment on above: Order Comment: Speci men Type: BLOOD SPECIMENOrdering Facility: [facility] Address: [address] [place] [address] Performed By: #### 5 7021-8 ####[facility] LABIA [id number] [place] [address] [place] Immature granulocytes/100 WBC (Bld) 0.3 % Normal [facility] Comment on above: Order Comment: Speci men Type: BLOOD SPECIMENOrdering Facility: [facility] Address: [address] [place] [address] Performed By: #### 5 7021-8 ####[facility] LABCLIA [id number] [place] [address] [place] Lymphocytes (Bld) [#/Vol] 1.30 10*3/uL Normal 1.00-4.00 [facility] Comment on above: Order Comment: Speci men Type: BLOOD SPECIMENOrdering Facility: [facility] Address: [address] [place] [address] Performed By: #### 5 7021-8 ####[facility] LABCLIA [id number] [place] [address] [place] Lymphocytes/100 WBC (Bld) 33.5 % Normal [facility] Comment on above: Order Comment: Speci men Type: BLOOD SPECIMENOrdering Facility: [facility] Address: [address] [place] [address] Performed By: #### 5 7021-8 ####[facility]IA [id number] [place] [address] [place] MCH (RBC) [Entitic mass] 31.9 pg Normal 26.0-34.0 [facility] Comment on above: Order Comment: Speci men Type: BLOOD SPECIMENOrdering Facility: [facility] Address: [address] [place] [address] Performed By: #### 5 7021-8 ####[facility]IA [id number] [place] [address] [place] MCHC (RBC) [Mass/Vol] 36.1 g/dL High 30.5-36.0 [facility] Comment on above: Order Comment: Speci men Type: BLOOD SPECIMENOrdering Facility: [facility] Address: [address] [place] [address] Performed By: #### 5 7021-8 ####[facility]IA [id number] [place] [address] [place] MCV (RBC) [Entitic vol] 88.3 fL Normal 80.0-100.0 [facility] Comment on above: Order Comment: Speci men Type: BLOOD SPECIMENOrdering Facility: [facility] Address: [address] [place] [address] Performed By: #### 5 7021-8 ####[facility] [id number] [place] [address] [place] Monocytes (Bld) [#/Vol] 0.30 10*3/uL Normal <0.87 [facility] Comment on above: Order Comment: Speci men Type: BLOOD SPECIMENOrdering Facility: [facility] Address: [address] [place] [address] Performed By: #### 5 7021-8 ####[facility] LABCLIA [id number] [place] [address] [place] Monocytes/100 WBC (Bld) 7.7 % Normal [facility] Comment on above: Order Comment: Speci men Type: BLOOD SPECIMENOrdering Facility: [facility] Address: [address] [place] [address] Performed By: #### 5 7021-8 ####[facility] LABCLIA [id number] [place] [address] [place] Neutrophils (Bld) [#/Vol] 2.18 10*3/uL Normal 1.45-7.50 [facility] Comment on above: Order Comment: Speci men Type: BLOOD SPECIMENOrdering Facility: [facility] Address: [address] [place] [address] Performed By: #### 5 7021-8 ####[facility]IA [id number] [place] [address] [place] Neutrophils/100 WBC (Bld) 56.2 % Normal [facility] Comment on above: Order Comment: Speci men Type: BLOOD SPECIMENOrdering Facility: [facility] Address: [address] [place] [address] Performed By: #### 5 7021-8 ####[facility] LABCLIA [id number] [place] [address] [place] Nucleated RBC (Bld) [#/Vol] 10*3/uL Normal <0.01 [facility] Comment on above: Order Comment: Speci men Type: BLOOD SPECIMENOrdering Facility: [facility] Address: [address] [place] [address] Performed By: #### 5 7021-8 ####[facility] LABCLIA [id number] [place] [id number] [place] Nucleated RBC/100 WBC (Bld) [Ratio] 0.0 /100 WBC Normal [facility] Comment on above: Order Comment: Speci men Type: BLOOD SPECIMENOrdering Facility: [facility] Address: [address] [place] [address] Performed By: #### 5 7021-8 ####[facility] LABCLIA [id number] [place] [address] [place] Platelet mean volume (Bld) [Entitic vol] 9.2 fL Normal 9.0-12.7 [facility] Comment on above: Order Comment: Speci men Type: BLOOD SPECIMENOrdering Facility: [facility] Address: [address] [place] [address] Performed By: #### 5 7021-8 ####[facility]IA [id number] [place] [address] [place] Platelets (Bld) [#/Vol] 324 10*3/uL Normal 150-400 [facility] Comment on above: Order Comment: Speci men Type: BLOOD SPECIMENOrdering Facility: [facility] Address: [address] [place] [address] Performed By: #### 5 7021-8 ####[facility]IA [id number] [place] [address] [place] RBC (Bld) [#/Vol] 3.83 10*6/uL Low 3.90-5.20 [facility] Comment on above: Order Comment: Speci men Type: BLOOD SPECIMENOrdering Facility: [facility] Address: [address] [place] [address] Performed By: #### 5 7021-8 ####[facility] LABCLIA [id number] [place] [address] [place] WBC (Bld) [#/Vol] 3.88 10*3/uL Normal 3.70-11.00 [facility] Comment on above: Order Comment: Speci men Type: BLOOD SPECIMENOrdering Facility: [facility] Address: [address] [place] [address] Performed By: #### 5 7021-8 ####[facility] LABCLIA [id number] [place] [address] [place] CORTISOL, FREEon 10-07-2024 FREE CORTISOL, SERUM 1.06 ug/dL Normal [facility] Comment on above: Order Comment: Speci men Type: URINE SPECIMEN [facility] Address: [address] [place] [address] Result Comment: 18 y ears of age and older: 8-10 a.m. collection: 0.21-1.04 ug/dL 4-6 p.m. collection: 0.10-0.63 ug/dL INTERPRETIVE INFORMATION: Cortisol, Free by [facility] D[facility]/LC-MS/MS This test was developed and its performance characteristics determined by [facility]. It has not been cleared or approved by the [place] Food and Drug Administration. This test was performed in a CLIA certified laboratory and is intended for clinical purposes. Performed By: [facility] [address] [place] [address] Corporate Development Associate: Angel Potter MD, PhD [place] Number: [id number] Performed By: #### 3 5677-4, 92566-7, 68157-5 #### [facility] CLIA [id number] [address] [place] [address] [place] CYSTATIN Con 10-07-2024 Cystatin C [Mass/Vol] 0.89 mg/L Normal 0.61-0.95 [facility] Comment on above: Order Comment: Speci men Type: BLOOD SPECIMENOrdering Facility: [facility] Address: [address] [place] [address] Performed By: #### C YSTC, 47548-4, 91371-8, 2777-1 ####[facility] LABCLIA [id number] [place] [address] [place] CYSTATIN C EGFR 87 mL/min/1.73m??? Normal >=60 C [facility] Comment on above: Order Comment: Speci men Type: BLOOD SPECIMENOrdering Facility: [facility] Address: [address] [place] [address] Result Comment: Matilde mated Glomerular Filtration Rate (eGFR) is calculated using the 2012 CKD-EPI cystatin C equation. This equation utilizes serum cystatin C, sex, and age as parameters. The cystatin C assay has traceable calibration to the [facility] reference material. Refer to KDIGO guidelines for clinical interpretation. In patients with unstable renal function, e.g. those with acute kidney injury, the eGFR may not accurately reflect actual GFR. Performed By: #### Vijay RICH, 91734-1, 34913-6, 2776- ####[facility] LABCLIA [id number] [address] [address] [place] Comprehensive metabolic 2000 panelon 10-07-2024 Albumin [Mass/Vol] 4.6 g/dL Normal 3.9-4.9 [facility] Comment on above: Order Comment: Speci men Type: BLOOD SPECIMENOrdering Facility: [facility] Address: [address] [place] [address] Performed By: #### Vijay RICH, 80501-7, , 2776-07 ####[facility] LABCLIA [id number] [address] [place] [address] [place] ALP [Catalytic activity/Vol] 106 U/L Normal 34-123 [facility] Comment on above: Order Comment: Speci men Type: BLOOD SPECIMENOrdering Facility: [facility] Address: [address] [place] [address] Performed By: #### Vijay RICH, , 12149-7, 2776-07 ####[facility] LABCLIA [id number] [facility] [address] [address] [place] ALT [Catalytic activity/Vol] 33 U/L Normal 7-38 [facility] Comment on above: Order Comment: Speci men Type: BLOOD SPECIMENOrdering Facility: [facility] Address: [address] [place], [place] [address] Performed By: #### Vijay RICH, , 73955-3, 2776-07 ####[facility] LABCLIA [id number] [place] [address] [place] Anion gap [Moles/Vol] 13 mmol/L Normal 8-15 [facility] Comment on above: Order Comment: Speci men Type: BLOOD SPECIMENOrdering Facility: [facility] Address: [address] [place] [address] Performed By: #### Vijay RICH, , , 2776-07 ####[facility] LABCLIA [id number] [place] [address] [place] AST [Catalytic activity/Vol] 28 U/L Normal 13-35 [facility] Comment on above: Order Comment: Speci men Type: BLOOD SPECIMENOrdering Facility: [facility] Address: [address] [place] [address] Performed By: #### Vijay RICH, , , 2776-07 ####[facility] LABCLIA [id number] [place] [address] [place] Bilirubin [Mass/Vol] 0.5 mg/dL Normal 0.2-1.3 [facility] Comment on above: Order Comment: Speci men Type: BLOOD SPECIMENOrdering Facility: [facility] Address: [address] [place], [place] [address] Performed By: #### Vijay RICH, , 76745-9, 2776- ####[facility] LABCLIA [id number] [place] [address] [place] Calcium [Mass/Vol] 10.4 mg/dL High 8.5-10.2 [facility] Comment on above: Order Comment: Speci men Type: BLOOD SPECIMENOrdering Facility: [facility] Address: [address] [place], [place] [address] Performed By: #### Vijay RICH, , , 2776-07 ####[facility] LABCLIA [id number] [address] [address] [place] Chloride [Moles/Vol] 79 mmol/L Low 98-107 [facility] Comment on above: Order Comment: Speci men Type: BLOOD SPECIMENOrdering Facility: [facility] Address: [address] [place] [address] Performed By: #### Vijay RICH, , , 2776-07 ####[facility] LABCLIA [id number] [place] [address] [place] CO2 [Moles/Vol] 26 mmol/L Normal 22-30 [facility] Comment on above: Order Comment: Speci men Type: BLOOD SPECIMENOrdering Facility: [facility] Address: [address] [place] [address] Performed By: #### Vijay RICH, , , 2776-07 ####[facility] LABCLIA [id number] [place] [address] [place] Creatinine [Mass/Vol] 0.72 mg/dL Normal 0.58-0.96 [facility] Comment on above: Order Comment: Speci men Type: BLOOD SPECIMENOrdering Facility: [facility] Address: [address] [place], [place] [address] Performed By: #### Vijay RICH, , , 2776-07 ####[facility] LABCLIA [id number] [place] [address] [place] Creatinine and Glomerular filtration rate.predicted panel (S/P/Bld) 100 mL/min/1.73m??? Normal >=60 [facility] Comment on above: Order Comment: Speci men Type: BLOOD SPECIMENOrdering Facility: [facility] Address: [address] [place] [address] Result Comment: Matilde mated Glomerular Filtration Rate (eGFR) is calculated using the 2020 CKD-EPI creatinine equation. This equation utilizes serum creatinine, sex, and age as parameters. The creatinine assay has traceable calibration to isotope dilution-mass spectrometry. Refer to KDIGO guidelines for clinical interpretation. In patients with unstable renal function, e.g. those with acute kidney injury, the eGFR may not accurately reflect actual GFR. Performed By: #### C YSTC, 90966-2, 88698-1, 2776- ####[facility] LABCLIA [id number] [place] [address] [place] Glucose [Mass/Vol] 104 mg/dL High 74-99 [facility] Comment on above: Order Comment: Howard gurrola Type: BLOOD SPECIMENOrdering Facility: [facility] Address: [address] [place] [address] Result Comment: The [place] Diabetes Association (ADA) provides guidance for cutoff values for fasting glucose and random glucose. The ADA defines fasting as no caloric intake for at least 8 hours. Fasting plasma glucose results between 100 to 125 mg/dL indicate increased risk for diabetes (prediabetes). Fasting plasma glucose results greater than or equal to 126 mg/dL meet the criteria for diagnosis of diabetes. In the absence of unequivocal hyperglycemia, results should be confirmed by repeat testing. In a patient with classic symptoms of hyperglycemia or hyperglycemic crisis, random plasma glucose results greater than or equal to 200 mg/dL meet the criteria for diagnosis of diabetes. Reference: Standards of Medical Care in Diabetes 2016, [place] [employer] Association. Diabetes Care. 2016.39(Suppl 1). Performed By: #### C YSTC, 06261-1, 78832-7, 2776-07 ####[facility] LABIA [id number] [address] [address] [place] Potassium [Moles/Vol] 2.7 mmol/L Low 3.7-5.1 [facility] Comment on above: Order Comment: Howard gurrola Type: BLOOD SPECIMENOrdering Facility: [facility] Address: [address] [place], [place] [address] Performed By: #### Vijay RICH, 29978-1, 97489-7, 2776- ####[facility] LABCLIA [id number] [address] [address] [place] Protein [Mass/Vol] 7.1 g/dL Normal 6.3-8.0 [facility] Comment on above: Order Comment: Speci men Type: BLOOD SPECIMENOrdering Facility: [facility] Address: [address] [place] [address] Performed By: #### Vijay RICH, 74439-4, 42424-8, 2776- ####[facility] LABCLIA [id number] [place] [address] [place] Sodium [Moles/Vol] 118 mmol/L Low 136-144 [facility] Comment on above: Order Comment: Speci men Type: BLOOD SPECIMENOrdering Facility: [facility] Address: [address] [place] [address] Performed By: #### Vijay RICH, 32250-5, 18482-1, 2776- ####[facility] LABCLIA [id number] [place] [address] [place] Urea nitrogen [Mass/Vol] 9 mg/dL Normal 7-21 [facility] Comment on above: Order Comment: Speci men Type: BLOOD SPECIMENOrdering Facility: [facility] Address: [address] [place] [address] Performed By: #### Vijay RICH, 98207-0, 49941-4, 2776- ####[facility] LABCLIA [id number] [address] [address] [place] Creat ?Tm Ur-mCncon 10-08-19 25 Creatinine (U) [Mass/Vol] 35.8 mg/dL Normal 20.0-300.0 [facility] Comment on above: Order Comment: Speci men Type: URINE SPECIMEN [facility] Address: [address] [place] [address] Performed By: #### 3 5677-4, 61000-5, 69247-7 #### [facility] CLIA [id number] [address] [place] [address] STATES OF [facility] DEOXYCORTICOSTERONE QUANTon 10-07-2024 11 DEOXYCORTICOSTERONE 10.10 ng/dL Normal [facility] Comment on above: Order Comment: Speci men Type: BLOOD SPECIMENOrdering Facility: [facility] Address: [address] [place] [address] Result Comment: Refe rence Interval: Age Male and Female (ng/dL) Pre-pubertal children.....Less than or equal to 34 Adults....................Less than or equal to 19 REFERENCE INTERVAL: 11-Deoxycorticosterone Quantitative by HPLC-MS/MS, Serum or Plasma Access complete set of age- and/or gender-specific reference intervals for this test in the [facility] Test Directory ([employer]). This test was developed and its performance characteristics determined by [facility]. It has not been cleared or approved by the [place] Food and Drug Administration. This test was performed in a CLIA certified laboratory and is intended for clinical purposes. Performed By: [facility] [address] [place] [address] [employer] Development Associate: Angel Potter MD, PhD CLIA Number: [id number] Performed By: #### 1 1DCOR ####[facility] [id number] [place] [address] METANEPHRINES, FREE PLASMAon 10-07-2024 METANEPHRINE, PLASMA 30 pg/mL Normal 12-67 [facility] Comment on above: Order Comment: Speci men Type: URINE SPECIMEN [facility] Address: [address] [place] [address] Result Comment: Refe rence Ranges: Hypertensive adult > or = 18 yrs old: 12-72 pg/mL Normotensive adult > or = 18 yrs old: 12-67 pg/mL Normotensive children < 18 yrs old: 10-95 pg/mL Performed By: #### 3 5677-4, 05352-4, 62842-6 #### [facility] CLIA [id number] [address] [place] [address] [place] NORMETANEPHRINE, PLASMA 69 pg/mL Normal 18-101 [facility] Comment on above: Order Comment: Speci men Type: URINE SPECIMEN [facility] Address: [address] [place] [address] Result Comment: Refe rence Ranges: Hypertensive adult > or = 18 yrs old: 24-145 pg/mL Normotensive adult > or = 18 yrs old: 18-101 pg/mL Normotensive children < 18 yrs old: 22-83 pg/mL Methyldopa may cause false elevation of normetanephrine levels in this assay. If patient is on methyldopa, interpret results with caution. Performed By: #### 3 5677-4, 10722-4, 11744-0 #### [facility] CLIA [id number] [address] [place] [address] [place] Magnesium SerPl-mCncon 10-07 Magnesium [Mass/Vol] 2.2 mg/dL Normal 1.7-2.3 [facility] Comment on above: Order Comment: Speci men Type: BLOOD SPECIMENOrdering Facility: [facility] Address: [address] [place] [address] Performed By: #### C YSTC, 02970-8, 75906-9, 2777-1 ####[facility]IA [id number] [place] [address] [place] Osmolality SerPlon 5 Osmolality [Osmolality] 245 mosm/kg Low 275-300 [facility] Comment on above: Order Comment: Speci men Type: BLOOD SPECIMENOrdering Facility: [facility] Address: [address] [place] [address] Performed By: #### 2 692-2 ####[facility] [id number] [place] [address] [place] Phosphate SerPl-mCncon 10-07 Phosphate [Mass/Vol] 2.8 mg/dL Normal 2.7-4.8 [facility] Comment on above: Order Comment: Speci men Type: BLOOD SPECIMENOrdering Facility: [facility] Address: [address] [place] [address] Performed By: #### C YSTC, 43138-1, 91526-8, 2777-1 ####[facility] [id number] [place] [address] [place] Prot/Creat Uron 10-07-2024 Protein/Creatinine (U) [Mass ratio] 0.25 mg/mg High <0.15 [facility] Comment on above: Order Comment: Speci men Type: URINE SPECIMEN [facility] Address: [address] [place] [address] Result Comment: Adul t Proteinuria Categories: <0.15 mg/mg is considered normal to mildly increased 0.15 - 0.50 mg/mg is considered moderately increased >0.50 mg/mg is considered severely increased KDIGO. (2013). KDIGO 2012 Clinical Practice Guideline for the Evaluation and Management of Chronic Kidney Disease. Official Journal of the International Society of Nephrology, 3(1), 1-150. Performed By: #### 3 5677-4, 34575-2, 59199-3 #### [facility] CLIA [id number] [address] [place] [address] [place] Protein/Creatinine (U) [Mass ratio]on 10-07-2024 Protein (U) [Mass/Vol] 9 mg/dL Normal 0-20 [facility] Comment on above: Order Comment: Speci men Type: URINE SPECIMEN [facility] Address: [address] [place] [address] Performed By: #### 3 5677-4, 58428-5, 43455-6 #### [facility] CLIA [id number] [address] [place] [address] [place] Urate SerPl-mCncon Urate [Mass/Vol] 2.1 mg/dL Low 2.5-6.6 [facility] Comment on above: Order Comment: Speci men Type: BLOOD SPECIMENOrdering Facility: [facility] Address: [address] [place] [address] Performed By: #### 3 084-1 ####[facility] [id number] [place] [address] [place] Urinalysis complete panel (U )on 10-07-2024 Bacteria LM.HPF (Urine sed) [#/Area] Negative Normal Negative [facility] Comment on above: Order Comment: Speci men Type: URINE SPECIMENOrdering Facility: [facility] Address: [address] [place] [address] Performed By: #### 2 4356-8 ####[facility] [id number] [place] [address] [place] Bilirubin Ql (U) Negative Normal Negative [facility] Comment on above: Order Comment: Speci men Type: URINE SPECIMENOrdering Facility: [facility] Address: [address] [place] [address] Performed By: #### 2 4356-8 ####[facility] [id number] [place] [address] [place] Clarity (Unsp spec) Clear Normal Clear [facility] Comment on above: Order Comment: Speci men Type: URINE SPECIMENOrdering Facility: [facility] Address: [address] [place] [address] Performed By: #### 2 4356-8 ####[facility] [id number] [place] [id number] [place] Color (U) Yellow Normal Yellow [facility] Comment on above: Order Comment: Speci men Type: URINE SPECIMENOrdering Facility: [facility] Address: [address] [place] [address] Performed By: #### 2 4356-8 ####[facility]IA [id number] [address], [place] [facility] [place] [facility] Epithelial cells LM.HPF (Urine sed) [#/Area] None Seen Normal [facility] Comment on above: Order Comment: Speci men Type: URINE SPECIMENOrdering Facility: [facility] Address: [address] [place] [address] Performed By: #### 2 4356-8 ####[facility] [id number] [address] STATES OF [facility] Glucose Test strip (U) [Mass/Vol] Negative Normal Negative [facility] Comment on above: Order Comment: Speci men Type: URINE SPECIMENOrdering Facility: [facility] Address: [address] [place] [address] Performed By: #### 2 4356-8 ####[facility] LABCLIA [id number] [place] [address] [place] Hemoglobin Ql (U) Negative Normal Negative [facility] Comment on above: Order Comment: Speci men Type: URINE SPECIMENOrdering Facility: [facility] Address: [address] [place] [address] Performed By: #### 2 4356-8 ####[facility] LABCLIA [id number] [facility] [address] [address] [place] Hyaline casts (Urine sed) [#/Area] 0 /[LPF] Normal 0 /LPF [facility] Comment on above: Order Comment: Speci men Type: URINE SPECIMENOrdering Facility: [facility] Address: [address] [place] [address] Performed By: #### 2 4356-8 ####[facility] LABCLIA [id number] [address] [place] [address] [place] Ketones Ql (U) Negative Normal Negative [facility] Comment on above: Order Comment: Speci men Type: URINE SPECIMENOrdering Facility: [facility] Address: [address] [place] [address] Performed By: #### 2 4356-8 ####[facility] LABCLIA [id number] [address], [place] [facility]95 [place] Leukocyte esterase Test strip Ql (U) Negative Normal Negative [facility] Comment on above: Order Comment: Speci men Type: URINE SPECIMENOrdering Facility: [facility] Address: [address] [place] [address] Performed By: #### 2 4356-8 ####[facility] LABCLIA [id number] [place] [address] [place] Nitrite Ql (U) Negative Normal Negative [facility] Comment on above: Order Comment: Speci men Type: URINE SPECIMENOrdering Facility: [facility] Address: [address] [place] [address] Performed By: #### 2 4356-8 ####[facility] LABCLIA [id number] [place] [address] [place] pH (U) 8.0 [pH] Normal <8.5 [facility] Comment on above: Order Comment: Speci men Type: URINE SPECIMENOrdering Facility: [facility] Address: [address] [place] [address] Performed By: #### 2 4356-8 ####[facility] LABCLIA [id number] [place] [id number] [place] Protein (U) [Mass/Vol] Negative Normal Negative [facility] Comment on above: Order Comment: Speci men Type: URINE SPECIMENOrdering Facility: [facility] Address: [address] [place] [address] Performed By: #### 2 4356-8 ####[facility] LABCLIA [id number] [place] [address] [place] RBC LM.HPF (Urine sed) [#/Area] 0-2 /HPF Normal 0-2 /HPF [facility] Comment on above: Order Comment: Speci men Type: URINE SPECIMENOrdering Facility: [facility] Address: [address] [place] [address] Performed By: #### 2 4356-8 ####[facility] LABIA [id number] [place] [address] [place] Specific gravity (U) [Rel density] 1.007 Normal 1.005-1.030 [facility] Comment on above: Order Comment: Speci men Type: URINE SPECIMENOrdering Facility: [facility] Address: [address] [place] [address] Performed By: #### 2 4356-8 ####[facility] LABIA [id number] [place] [address] [place] Urobilinogen Ql (U) 0.2 EU/dL Normal 0.2-1.0 EU/dL [facility] Comment on above: Order Comment: Speci men Type: URINE SPECIMENOrdering Facility: [facility] Address: [address] [place] [address] Performed By: #### 2 4356-8 ####[facility] LABIA [id number] [place] [address] [place] WBC LM.HPF (Urine sed) [#/Area] 0-5 /HPF Normal 0-5 /HPF [facility] Comment on above: Order Comment: Speci men Type: URINE SPECIMENOrdering Facility: [facility] Address: [address] [place] [address] Performed By: #### 2 4356-8 ####[facility] LABIA [id number] [address] [place] CNOVon 09-28-2024 CNOV Office Visit (FAMPWS ) LAISA ([id number]) 1970 F Date Time Provider Department 09/28/24 2:40 PM DYLAN COLE During your visit today, we recorded the following information about you: Temperature Pulse Respiration Blood pressure 98.5 degrees 69/minute 16/minute 177/93 Weight 68.6 kg Dylan Cole PA-C 09/29/2024 9:16 AM Signed 09/28/2024 Patient presents with: URI: X2 weeks SUBJECTIVE: This is a 54 year old that is here today for sinus congestion and pain x 2 weeks. She c/o associated cough. She did have some vomiting, but describes this as coughing with drainage and then vomiting. She did have 1 episode after eating. No diarrhea. Denies fever/chills, SOB, chest pain, ear pain. She did have a slightly sore throat but with coughing. PAST MEDICAL HISTORY Diagnosis Date Depression ALLERGIES Amlodipine and Lisinopril MEDICATIONS Current Outpatient Medications Medication Sig chlorthalidone (HYGROTON) 50 mg tablet Take 1 tablet by mouth once daily. losartan (COZAAR) 100 mg tablet Take 1 tablet by mouth once daily. FLUoxetine (PROZAC) 40 mg capsule Take 1 capsule by mouth two times a day. In addition to 20mg capsule for total of 60mg daily multivitamin tablet Take 1 tablet by mouth once daily. famotidine (PEPCID) 20 mg tablet Take 1 tablet by mouth at bedtime as needed. Btvdunw-Rcfkzxfyv-Buir tab Take by mouth. cloNIDine HCl (CATAPRES) 0.1 mg tablet Take 1 tablet by mouth two times a day. No current facility-administered medications for this visit. SOCIAL HISTORY Social History Tobacco Use Smoking status: Former Current packs/day: 0.00 Types: Cigarettes Start date: 03/04/1985 Quit date: 03/04/1995 Years since quittin.5 Smokeless tobacco: Never Vaping Use Vaping status: Never Used Substance Use Topics Alcohol use: Yes Comment: occasionally Drug use: No REVIEW OF SYSTEMS See HPI OBJECTIVE: BP 177/93 Pulse 69 Temp 36.9 ?C (98.5 ?F) (Left Tympanic) Resp 16 Wt 68.6 kg (151 lb 3.2 oz) SpO2 100% BMI 23.68 kg/m? APPEARANCE Well appearing, alert, in no acute distress, well-hydrated, well nourished. EYES PERRLA, conjunctiva and sclera normal. EARS External ears normal, canals clear NOSE/SINUS Nares normal. Septum midline. Mucosa normal. No drainage or sinus tenderness. THROAT normal, no erythema NECK Supple, no adenopathy; thyroid symmetric, normal size, no bruits HEART RRR with normal S1 and S2 appreciated LUNG clear to auscultation, No wheezing, rhonchi, rales. ABDOMEN bowel sounds normoactive, no bruits, soft, non-tender, non-distended, without organomegaly or palpable masses, no tenderness to palpation, negative Watkins's, McBurney's, Rovsing's. No rebound, rigidity or guarding. ASSESSMENT/PLAN: 1. Acute maxillary sinusitis, recurrence not specified - ICD9: 461.0, ICD10: J01.00 - Will begin treatment with as per antibiotic as written, see orders - The patient should also be given warm salt water gargles, throat lozenges and/or OTC throat spray as needed and nasal saline gtts and suction prn for the first 5-7 days of treatment. - Supportive care with plenty of fluids, rest, and analgesia prn. - Follow up in 3-5 days if symptoms persist or worsen. Discussed saline nasal rinse. Avoid Flonase with recent epistaxis. - AMOXICILLIN 875 MG-POTASSIUM CLAVULANATE 125 MG TABLET - BENZONATATE 100 MG CAPSULE 2. Hypertension, unspecified type - ICD9: 401.9, ICD10: I10 - Uncontrolled Keep appointment next week with nephrology. Reviewed red flags and when to seek care sooner. The patient indicates understanding of these issues and agrees with the plan. Dylan Cole PA-C Allergies As of Date: 09/28/2024 Noted Allergy Reaction AMLODIPINE 07/29/2024 5 - Intolerance Comments: Pedal edema LISINOPRIL 06/02/2024 3 - Cough Date Reviewed: 09/28/2024 Reviewed by: Lolly Isaac MA - Fully Assessed Reason for Visit: URI [115] Cmt: X2 weeks Primary Visit Diagnosis:Acute maxillary sinusitis, recurrence not specified [J01.00] Other Visit Diagnosis:Hypertension , unspecified type [I10] Order(s):amoxicillin-c lavulanate potassium (AUGMENTIN) 875-125 mg per tabletTake 1 tablet by mouth two times a day for 5 days.Disp: 10 tabletRfl: 0 benzonatate (TESSALON PERLE) 100 mg capsuleTake 1-2 capsules by mouth three times a day as needed for cough for up to 7 days.Disp: 21 capsuleRfl: 0 Prescriptions as of 09/29/2024 - amoxicillin-clavulanat e potassium (AUGMENTIN) 875-125 mg per tablet Take 1 tablet by mouth two times a day for 5 days. - benzonatate (TESSALON PERLE) 100 mg capsule Take 1-2 capsules by mouth three times a day as needed for cough for up to 7 days. - chlorthalidone (HYGROTON) 50 mg tablet Take 1 tablet by mouth once daily. - losartan (COZAAR) 100 mg tablet Take 1 tablet by mouth once sid (more content not included)... Normal [facility] CNOVon 08-31-2024 CNOV Office Visit (MOLINAPWS ) ISA TOVAR ([id number]) 1970 F Date Time Provider Department 08/31/24 1:20 PM IVORY ESPINOZA During your visit today, we recorded the following information about you: Pulse Respiration Blood pressure Weight 72/minute 14/minute 172/90 72 kg Ivory Espinoza APRN.CNP 09/01/2024 7:08 PM Signed Chief Complaint Patient presents with: Follow Up: Hypertension HPI Isa Tovar is a 54 year old female who presents here today for Above Complaints.. Home BP-in general 160's/90's. Is asymptomatic-denies h/a, chest pain, SOB, palpitations. Has been taking her medications as ordered. Father is in his 80's and has hx of resistant HTN and has been seeing nephrology for this over the past year or so. Past medical history, appointments, medications, allergies reviewed. Previous Medical History PAST MEDICAL HISTORY Diagnosis Date Depression Previous Surgical History PAST SURGICAL HISTORY Procedure Laterality Date COLONOSCOPY SCREENING 08/16/2022 repeat in 5 years, poor bowel prep EXCISION GANGLION WRIST DORSAL/VOLAR PRIMARY Right 08/30/2022 Excision ganglion cyst right wrist and open palmar fasciectomy HAND SURGERY HX Right Dr. Dougherty TONSILLECTOMY PRIMARY/SECONDARY Tonsillectomy VAGINAL HYSTERECTOMY UTERUS 250 GM/< 07/21/2008 Hysterectomy, vaginal Family History FAMILY HISTORY Problem Relation Age of Onset Hypertension Mother Hypertension Father Hypertension Maternal Grandmother Heart Maternal Grandmother Hypertension Sister Heart Brother congenital valve dx, valve replacement/repair Patient Allergies ALLERGIES Allergen Reactions Amlodipine Intolerance Pedal edema Lisinopril Cough Current Medications Current Outpatient Medications on File Prior to Visit Medication Sig cloNIDine HCl (CATAPRES) 0.1 mg tablet Take 0.1 mg by mouth two times a day. (Patient not taking: Reported on 08/31/2024) cloNIDine HCl (CATAPRES) 0.1 mg tablet Take 1 tablet by mouth two times a day. losartan (COZAAR) 100 mg tablet Take 1 tablet by mouth once daily. hydroCHLOROthiazide 25 mg tablet Take 1 tablet by mouth once daily. FLUoxetine (PROZAC) 40 mg capsule Take 1 capsule by mouth two times a day. In addition to 20mg capsule for total of 60mg daily multivitamin tablet Take 1 tablet by mouth once daily. famotidine (PEPCID) 20 mg tablet Take 1 tablet by mouth at bedtime as needed. Bjcyhjg-Tfglfnjng-Dton tab Take by mouth. No current facility-administered medications on file prior to visit. Social History Social History Tobacco Use Smoking status: Former Current packs/day: 0.00 Types: Cigarettes Start date: 03/04/1985 Quit date: 03/04/1995 Years since quittin.5 Smokeless tobacco: Never Vaping Use Vaping status: Never Used Substance Use Topics Alcohol use: Yes Comment: occasionally Drug use: No Last 14 BP Last 14 Encounter BP Readings: Date: BP: 08/31/2024 172/90[bp wilfredo average[ 08/13/2024 162/84 07/29/2024 154/88 07/01/2024 144/88[recheck bp[ 06/02/2024 163/96[bp Wilfredo average[ 05/05/2024 146/90 04/27/2024 181/97 08/01/2023 142/90 11/03/2022 130/72 10/22/2022 134/88 08/30/2022 102/59 08/16/2022 136/73 07/31/2022 160/76 06/28/2022 148/86 Review of Symptoms REVIEW OF SYSTEMS See HPI, otherwise negative EXAM: BP 172/90 (BP Site: Left Arm, BP Position: Sitting, BP Cuff Size: Regular Adult) Pulse 72 Resp 14 Wt 72 kg (158 lb 12.8 oz) SpO2 98% BMI 24.87 kg/m? General Appearance: Well appearing, alert, in no acute distress, well-hydrated, well nourished.. Lungs: Lungs clear to auscultation. No wheezing, rhonchi, rales.. Heart: RRR without murmur, gallop, or rubs. No ectopy. Psychiatric: pleasant, cooperative. Health Maintenance List Anxiety Screening Never done BP Controlled (<130/80) Never done Shingrix Vaccine(1 of 2) Never done Pneumococcal Vaccine: 50+(1 of 1 - PCV) Never done Mammogram Screening due on 08/23/2023 Influenza Vaccine(1) due on 01/17/2025 Covid-19 Vaccine( - 2023- season) due on 08/13/2025 Annual PCP Team Chronic Disease Visit due on 08/13/2025 Diabetes Screening due on 08/01/2026 Colorectal Cancer Screening due on 08/16/2027 Lipid Screening due on 08/01/2028 DTaP,Tdap,Td Vaccine(2 - Td or Tdap) due on 03/21/2032 Hepatitis B Vaccine Discontinued Cervical Cancer Screening Discontinued Hepatitis C Screening Discontinued HIV Screening Discontinued Data reviewed Previous records, office notes ASSESSMENT/PLAN: 1. Resistant hypertension - ICD9: 401.9, ICD10: I1A.0 Stop hctz, begin chlorthalidone. She will monitor and record her BP 2x daily and send V[employer] message in 2 weeks with results. Will likely increase at that point. 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 - CONSULT TO NEPHROLOGY - CHLORTHALIDONE 25 MG TABLET Haley (more content not included)... Normal [facility] ALDOSTERONE/DIRECT RENIN RAT IOon 08-26-2024 CLINT RENIN RATIO 3.0 Normal <3.8 [facility] Comment on above: Order Comment: Howard gurrola Type: BLOOD SPECIMENOrdering Facility: [facility] Address: [address] [place] [address] Result Comment: A ra tamie of aldosterone in ng/dL to direct renin in pg/mL greater than or equal to 3.8 is a positive screening test result for primary aldosteronism, when aldosterone is greater than or equal to 15 ng/dL. Performed By: #### A LDREN ####[facility] LABCLIA [id number] [place] [address] [place] Aldosterone [Mass/Vol] 20.0 ng/dL Normal 0.0-<35.4 [facility] Comment on above: Order Comment: Howard gurrola Type: BLOOD SPECIMENOrdering Facility: [facility] Address: [address] [place] [address] Result Comment: The reference interval for serum/plasma aldosterone is based on a normal sodium intake and upright position. High sodium intake may suppress aldosterone and low sodium intake may increase aldosterone. The supine reference interval is <23.7 ng/dL. A ratio of aldosterone in ng/dL to direct renin in pg/mL greater than or equal to 3.8 is a positive screening test result for primary aldosteronism, when aldosterone is greater than or equal to 15 ng/dL. Performed By: #### A LDREN ####[facility] LABCLIA [id number] [place] [address] [place] DIRECT RENIN 6.7 pg/mL Normal 3.6-81.6 [facility] Comment on above: Order Comment: Howard gurrola Type: BLOOD SPECIMENOrdering Facility: [facility] Address: [address] [place] [address] Result Comment: The reference interval for direct renin is based on an upright position. The supine reference intervals are: Age <41 years: 3.2-33.2 pg/mL Age >=41 years: 2.5-45.1 pg/mL A ratio of aldosterone in ng/dL to direct renin in pg/mL greater than or equal to 3.8 is a positive screening test result for primary aldosteronism, when aldosterone is greater than or equal to 15 ng/dL. Performed By: #### A LDREN ####[facility] LABCLIA [id number] [place] [address] [place] PATIENT UPRIGHT OR SUPINE Upright Normal [facility] Comment on above: Order Comment: Howard gurrola Type: BLOOD SPECIMENOrdering Facility: [facility] Address: [address] [place] [address] Performed By: #### A LDREN ####[facility] LABCLIA [id number] [address] STATES OF [facility] US RENAL ARTERY [facility] 08-25-2024 RENAL ARTERY [facility] Non-Invasive Vascular Laboratory [facility] Renal or Mesenteric Duplex Bilateral/Complete Date of service/time: 08/25/2024 8:19:42 AM Name: ISA HURSTMARCELOJIGNESH Date of : 1970 Age: 54 years Gender: F Clinical Indication HTN. TECHNIQUE -------- A visceral duplex ultrasound examination was performed, including grayscale imaging and color Doppler and spectral Doppler examination of the below mentioned arteries and veins. FINDINGS -------- Aorta proximal PSV: 93 cm/s. 2.35 cm Aorta distal PSV: 92 cm/s. 1.65 cm Right renal artery origin PSV: 164 cm/s. EDV: 50 cm/s. Right renal artery proximal PSV: 123 cm/s. EDV: 35 cm/s. Right renal artery mid PSV: 131 cm/s. EDV: 41 cm/s. Right renal artery distal PSV: 140 cm/s. EDV: 45 cm/s. Right renal artery to aortic ratio (RAR): 1.8 Right kidney: Size: 8.7 cm. Left renal artery origin PSV: 98 cm/s. EDV: 31 cm/s. Left renal artery proximal PSV: 126 cm/s. EDV: 46 cm/s. Left renal artery mid PSV: 76 cm/s. EDV: 29 cm/s. Left renal artery distal PSV: 106 cm/s. EDV: 43 cm/s. Left renal artery to aortic ratio (RAR): 1.4 Left kidney: Size: 9.6 cm. IMPRESSION RIGHT RENAL Right renal artery: 0-59% stenosis. No evidence of hemodynamically significant stenosis. LEFT RENAL Left renal artery: 0-59% stenosis. No evidence of hemodynamically significant stenosis. Technologist: Marco Antonio Owens Jr BS, RVT Ordering physician: IZA SIMMS Interpreting physician: Porfirio Taylor MD Final CC [employer] [facility] Image : [id number] See Link below for Image [facility] 08-13-2024 [facility] Office Visit (FAMPWS ) ISA TOVAR ([id number]) 1970 F Date Time Provider Department 08/13/24 1:00 PM IZA SIMMS During your visit today, we recorded the following information about you: Pulse Respiration Blood pressure Weight 67/minute 14/minute 162/84 71.8 kg Iza Simms APRN.LAQIUTA 08/13/2024 2:51 PM Signed Chief Complaint Patient presents with: b/p elavation in er HPI Isa Tovar is a 54 year old female who presents here today for Above Complaints. Lupe is an established patient of Dr. Chiki DO. Concerns today... ER follow-up -- [facility] ER visit on 08/07 d/t elevated BP. Ivory Espinoza CNP has been managing and adjusting HTN medication regimen. Numerous changes made of the last 2 months d/t intolerance or side effects of medications. In ER, she was given 5mg IV hydralazine. Losartan was increased to 100 mg daily. EKG, CXR, CBC, BMP, and trop was all normal/unremarkable. Dx with hypertensive urgency and discharged home with increased losartan regimen. Was switched from lisinopril d/t cough. Discontinued from amlodipine d/t leg edema. Increasing losartan d/t poor control of BP. Today... Ongoing elevated B since April. Taking losartan 100 mg since ER visit. Utilizing prn clonidine as needed when systolic BP is > 175. Has needed to take this 5 x since ER visit. Checking BP at home and has been fluctuating from 130-180/70-110. Rarely ever at goal thought per pt. EKG and ECHO completed in April and were normal. Significant family history of HTN. She denies chest pain, shortness of breath, palpitations, dizziness, leg edema, headaches, or vision changes. Does report very mild chest heaviness occasionally but none currently. Reports drinking lots of water/fluids. Urinating frequently, up numerous x per night to pee. Past medical history, appointments, medications, allergies reviewed. Previous Medical History PAST MEDICAL HISTORY Diagnosis Date Depression Previous Surgical History PAST SURGICAL HISTORY Procedure Laterality Date COLONOSCOPY SCREENING 08/16/2022 repeat in 5 years, poor bowel prep EXCISION GANGLION WRIST DORSAL/VOLAR PRIMARY Right 08/30/2022 Excision ganglion cyst right wrist and open palmar fasciectomy HAND SURGERY HX Right Dr. Dougherty TONSILLECTOMY PRIMARY/SECONDARY Tonsillectomy VAGINAL HYSTERECTOMY UTERUS 250 GM/< 07/21/2008 Hysterectomy, vaginal Family History FAMILY HISTORY Problem Relation Age of Onset Hypertension Mother Hypertension Father Hypertension Maternal Grandmother Heart Maternal Grandmother Hypertension Sister Heart Brother congenital valve dx, valve replacement/repair Patient Allergies ALLERGIES Allergen Reactions Amlodipine Intolerance Pedal edema Lisinopril Cough Current Medications Current Outpatient Medications on File Prior to Visit Medication Sig FLUoxetine (PROZAC) 40 mg capsule Take 1 capsule by mouth two times a day. In addition to 20mg capsule for total of 60mg daily losartan (COZAAR) 50 mg tablet Take 1 tablet by mouth once daily. multivitamin tablet Take 1 tablet by mouth once daily. famotidine (PEPCID) 20 mg tablet Take 1 tablet by mouth at bedtime as needed. Deniicq-Dncnpybil-Pewx tab Take by mouth. No current facility-administered medications on file prior to visit. Social History Social History Tobacco Use Smoking status: Former Current packs/day: 0.00 Types: Cigarettes Start date: 03/04/1985 Quit date: 03/04/1995 Years since quittin.4 Smokeless tobacco: Never Vaping Use Vaping status: Never Used Substance Use Topics Alcohol use: Yes Comment: occasionally Drug use: No REVIEW OF SYSTEMS: as above Reviewed relevant PMHx, PSHx, Social Hx, current medications and allergies. Review of Symptoms REVIEW OF SYSTEMS See HPI. EXAM: BP 162/84 (BP Site: Left Arm, BP Position: Sitting, BP Cuff Size: Regular Adult) Pulse 67 Resp 14 Wt 71.8 kg (158 lb 3.2 oz) SpO2 96% BMI 24.78 kg/m? General Appearance: Well appearing, alert, in no acute distress, well-hydrated, well nourished.. Skin: Skin color, texture, turgor normal, no suspicious rashes or lesions. Head: Normocephalic, no masses, lesions, tenderness or abnormalities. Lungs: Lungs clear to auscultation. No wheezing, rhonchi, rales.. Heart: RRR without murmur, gallop, or rubs. No ectopy. Health Maintenance List Anxiety Screening Never done BP Controlled (<130/80) Never done Shingrix Vaccine(1 of 2) Never done Pneumococcal Vaccine: 50+(1 of 1 - PCV) Never done Mammogram Screening due on 08/23/2023 Influenza Vaccine(1) due on 01/17/2025 Covid-19 Vaccine( - 2023- season) due on 08/13/2025 Annual PCP Team Chronic Disease Visit due on 08/13/2025 Diabetes Screening due on 08/01/2026 Colorectal Cancer Screening due on 08/16/2027 Lipid Sc (more content not included)... Normal [facility] [place] 08-13-2024 [place] Telephone (FAMPWS) LAISA ([id number]) 1970 F Date Time Provider Department 08/13/24 IZA SIMMS During your visit today, we recorded the following information about you: Iza Simms APRN.SCREEN PRINTER HELPER 08/13/2024 2:52 PM Signed Please call patient and let her know that I did decide to add on some lab work and an US of kidneys due to resistant HTN work-up. Please help her schedule this and have her get lab work done sometime before follow-up appointment. Thank you, Iza Simms APRN.SCREEN PRINTER HELPER Bernadette Daily MA 08/13/2024 3:48 PM Signed Pt informed Please schedule US MINDI Mantilla Kaitlyn 08/14/2024 9:00 AM Signed Called patient and scheduled as directed Allergies As of Date: 08/13/2024 Noted Allergy Reaction AMLODIPINE 07/29/2024 5 - Intolerance Comments: Pedal edema LISINOPRIL 06/02/2024 3 - Cough Date Reviewed: 08/13/2024 Reviewed by: Iza Simms APRN.SCREEN PRINTER HELPER - Fully Assessed Reason for Visit: Results [95] Prescriptions as of 08/27/2024 - cloNIDine HCl (CATAPRES) 0.1 mg tablet Take 0.1 mg by mouth two times a day. - cloNIDine HCl (CATAPRES) 0.1 mg tablet Take 1 tablet by mouth two times a day. - losartan (COZAAR) 100 mg tablet Take 1 tablet by mouth once daily. - hydroCHLOROthiazide 25 mg tablet Take 1 tablet by mouth once daily. - FLUoxetine (PROZAC) 40 mg capsule Take 1 capsule by mouth two times a day. In addition to 20mg capsule for total of 60mg daily - multivitamin tablet Take 1 tablet by mouth once daily. - famotidine (PEPCID) 20 mg tablet Take 1 tablet by mouth at bedtime as needed. - Wbpyors-Dvehhbpik-Jkwb tab Take by mouth. Problem List As Of Date 08/13/2024 Noted Resolved Dysthymia [F34.1] 08/23/2015 Well adult exam [Z00.00] 08/23/2015 Acid reflux [K21.9] 08/20/2022 Encounter Status:Closed by IZA SIMMS on 08/27/24 Normal [facility] 12 Lead EKGon 08-07-2024 12 Lead EKG [facility] Cardiovascular Services [address] [place] [address] 12 Lead EKG 08/07/24 1802 MR#: [id number] Acct: [id number] Name: ISA TOVAR Rep #: [id number] : 1970 54 From: Vadim Castelan MD Attending Dr: Status: DEP ER Ordering Dr: Karl العراقي DO Date: 5 Location: ED Sex: F C Admitted: Test Reason : DIZZINESS Blood Pressure : */* mmHG Vent. Rate : 60 BPM Atrial Rate : 60 BPM P-R Int : 166 ms QRS Dur : 80 ms QT Int : 436 ms P-R-T Axes : 22 62 58 degrees QTcB Int : 436 ms Normal sinus rhythm Septal infarct , age undetermined Abnormal ECG Confirmed by MIRTA PECK, TAYLA ([id number]), video editor PEARL GILBERT ([id number]) on 08/09/2024 10:50:43 AM Referred By: Confirmed By: TAYLA CASTELAN MD 08/09/24 1050 Date Vadim Castelan MD CC: Dr. Karl العراقي DO; Dr. Brandon Monet DO Signed Normal [facility] Absolute neutrophil countOrd ered By: Karl العراقي on 08-07-2024 Neutrophils (Bld) [#/Vol] 2.8 10*3/uL 2.0-7.[address] [facility] Basic Metabolic Profile (BMP )on 08-07-2024 BUN/CRE 10.6 RATIO Normal 10-[address] [facility] Comment on above: Order Comment: 'TROP ' Serial specimen #1, #2 or #3: 1 Performed By: #### L 100.0100, L500.2500, L501.5200 #### [facility] Laboratory [address] [place], [address] CA,Total 9.7 mg/dL Normal 8.5-10.[address] [facility] Comment on above: Order Comment: 'TROP ' Serial specimen #1, #2 or #3: 1 Performed By: #### L 100.0100, L500.2500, L501.5200 #### [facility] [address] [place], [address] Chloride [Moles/Vol] 101 mmol/L Normal 98-107 [facility] Comment on above: Order Comment: 'TROP ' Serial specimen #1, #2 or #3: 1 Performed By: #### L 100.0100, L500.2500, L501.5200 #### [facility] [address] [place], [address] CO2 [Moles/Vol] 25.0 mmol/L Normal 21.0-32.[address] [facility] Comment on above: Order Comment: 'TROP ' Serial specimen #1, #2 or #3: 1 Performed By: #### L 100.0100, L500.2500, L501.5200 #### [facility] [address] [place], [address] Creatinine [Mass/Vol] 0.76 mg/dL Normal 0.55-1.02 [facility] Comment on above: Order Comment: 'TROP ' Serial specimen #1, #2 or #3: 1 Result Comment: The validity of the calculated GFR GFRAA in patients over 70 years has not been determined. Clinical correlation is essential. Performed By: #### L 100.0100, L500.2500, L501.5200 #### [facility] [address] [place], [address] ECRCL 82.29 ml/min Normal [facility] Comment on above: Order Comment: 'TROP ' Serial specimen #1, #2 or #3: 1 Performed By: #### L 100.0100, L500.2500, L501.5200 #### [facility] [address] [place], [address] EST GFR - AA 102 mL/min Normal >[address] [facility] Comment on above: Order Comment: 'TROP ' Serial specimen #1, #2 or #3: 1 Result Comment: Afri can [place] GFR Calc Performed By: #### L 100.0100, L500.2500, L501.5200 #### [facility] [address] [place], [address] GAP 8 Normal 5-[address] [facility] Comment on above: Order Comment: 'TROP ' Serial specimen #1, #2 or #3: 1 Performed By: #### L 100.0100, L500.2500, L501.5200 #### [facility] [address] [place], [address] GFR/1.73 sq M.predicted among non-blacks MDRD (S/P/Bld) [Vol rate/Area] 85 mL/min/{1.73_m2} Normal >[address] [facility] Comment on above: Order Comment: 'TROP ' Serial specimen #1, #2 or #3: 1 Result Comment: Non- GFR Calc Performed By: #### L 100.0100, L500.2500, L501.5200 #### [facility] [address] [place], [address] Glucose [Mass/Vol] 79 mg/dL Normal 74-106 [facility] Comment on above: Order Comment: 'TROP ' Serial specimen #1, #2 or #3: 1 Performed By: #### L 100.0100, L500.2500, L501.5200 #### [facility] [address] [place], [address] Potassium [Moles/Vol] 3.6 mmol/L Normal 3.5-5.1 [facility] Comment on above: Order Comment: 'TROP ' Serial specimen #1, #2 or #3: 1 Performed By: #### L 100.0100, L500.2500, L501.5200 #### [facility] [address] [place], [address] Sodium [Moles/Vol] 134 mmol/L Low 136-145 [facility] Comment on above: Order Comment: 'TROP ' Serial specimen #1, #2 or #3: 1 Performed By: #### L 100.0100, L500.2500, L501.5200 #### [facility] [address] [place], [address] Urea nitrogen [Mass/Vol] 8 mg/dL Normal -[address] [facility] Comment on above: Order Comment: 'TROP ' Serial specimen #1, #2 or #3: 1 Performed By: #### L 100.0100, L500.2500, L501.5200 #### [facility] [address] [place], [address] Basophil percentageOrdered B y: Karl العراقي on 08-07-2024 Basophils/100 WBC (Bld) 1.0 % 0-1 [facility] Blood urea nitrogen (BUN)/cr eatinine ratioOrdered By: Karl العراقي on 08-07-2024 Urea nitrogen/Creatinine [Mass ratio] 10.6 mg/mg 10-[address] [facility] CBC W/Diff, Automatedon 07-21 Absolute Lymph 1.53 X10 3/uL Normal 0.83-4.[address] [facility] Comment on above: Performed By: #### L 100.0100, L500.2500, L501.4020 #### [facility] [address] [place], [address] Absolute Neut 2.8 X10 3/uL Normal 2.0-7.[address] [facility] Comment on above: Performed By: #### L 100.0100, L500.2500, L501.4020 #### [facility] [address] [place], [address] Basophils/100 WBC (Bld) 1.0 % Normal 0-1 [facility] Comment on above: Performed By: #### L 100.0100, L500.2500, L501.4020 #### [facility] [address] [place], [address] Eosinophils/100 WBC (Bld) 2.7 % Normal 0-[address] [facility] Comment on above: Performed By: #### L 100.0100, L500.2500, L501.4020 #### [facility] [address] [place], [address] Erythrocyte distribution width (RBC) [Ratio] 12.6 % Normal 11.6-14.[address] [facility] Comment on above: Performed By: #### L 100.0100, L500.2500, L501.4020 #### [facility] [address] [place], [address] Hematocrit (Bld) [Volume fraction] 35.4 % Low 37-[address] [facility] Comment on above: Performed By: #### L 100.0100, L500.2500, L501.4020 #### [facility] [address] [place], [address] Hemoglobin (Bld) [Mass/Vol] 12.2 g/dL Normal 12.0-15.[address] [facility] Comment on above: Performed By: #### L 100.0100, L500.2500, L501.4020 #### [facility] [address] [place], [address] IG% 0.000 Normal 0.0-0.[address] [facility] Comment on above: Result Comment: IG% - Immature Granulocytes (promyelocytes, myelocytes and metamyelocytes) > 1% indicates that a LEFT SHIFT is Present. Performed By: #### L 100.0100, L500.2500, L501.4020 #### [facility] [address] [place], [address] Lymphocytes/100 WBC (Bld) 31.5 % Normal 19-[address] [facility] Comment on above: Performed By: #### L 100.0100, L500.2500, L501.4020 #### [facility] [address] [place], [address] MCH (RBC) [Entitic mass] 32.4 pg High 27.0-32.[address] [facility] Comment on above: Performed By: #### L 100.0100, L500.2500, L501.4020 #### [facility] [address] [place], [address] MCHC (RBC) [Mass/Vol] 34.5 g/dL Normal 32-36 [facility] Comment on above: Performed By: #### L 100.0100, L500.2500, L501.4020 #### [facility] [address] [place], [address] MCV (RBC) [Entitic vol] 93.9 fL Normal 81-99 [facility] Comment on above: Performed By: #### L 100.0100, L500.2500, L501.4020 #### [facility] [address] [place], [address] Monocytes/100 WBC (Bld) 7.4 % Normal 0-10 [facility] Comment on above: Performed By: #### L 100.0100, L500.2500, L501.4020 #### [facility] [address] [place], [address] Neutrophils/100 WBC (Bld) 57.4 % Normal 47-[address] [facility] Comment on above: Performed By: #### L 100.0100, L500.2500, L501.4020 #### [facility] [address] [place], [address] Nucleated RBC (Bld) [#/Vol] 0 10*3/uL Normal 0-[address] [facility] Comment on above: Performed By: #### L 100.0100, L500.2500, L501.4020 #### [facility] [address] [place], [address] Platelet mean volume (Bld) [Entitic vol] 9.0 fL Normal 6.2-12.[address] [facility] Comment on above: Performed By: #### L 100.0100, L500.2500, L501.4020 #### [facility] [address] [place], [address] Platelets (Bld) [#/Vol] 273 10*3/uL Normal 150-[address] [facility] Comment on above: Performed By: #### L 100.0100, L500.2500, L501.4020 #### [facility] [address] [place], [address] RBC (Bld) [#/Vol] 3.77 10*6/uL Low 4.2-5.4 [facility] Comment on above: Performed By: #### L 100.0100, L500.2500, L501.4020 #### [facility] [address] [place], [address] RDW SD 43.8 fl Normal 35.1-43.[address] [facility] Comment on above: Performed By: #### L 100.0100, L500.2500, L501.4020 #### [facility] [address] [place], [address] WBC (Bld) [#/Vol] 4.9 10*3/uL Normal 4.4-11.0 [facility] Comment on above: Performed By: #### L 100.0100, L500.2500, L501.4020 #### [facility] [address] [place], [address] Carbon dioxide measurementOr dered By: Karl العراقي on 08-07-2024 CO2 [Moles/Vol] 25.0 mmol/L 21.0-32.[address] [facility] Chest 1 View (Portable)on Chest 1 View (Portable) [facility] Imaging Services [address] [place] [address] Chest 1 View (Portable) MR#: [id number] Acct: [id number] Name: ISA TOVAR Rep #: [id number] : 1970 F 54 From: Raoul Miller MD PCP: Dr. Brandon Monet, DO Status: DEP ER Study: Chest 1 View (Portable) Date of Exam: 08/07/24 Exam# [id number] Ordering Dr: Karl العراقي DO [id number] EXAM: XR CHEST, 1 VIEW CLINICAL INDICATION: Hypertension TECHNIQUE: Frontal view of the chest. COMPARISON: 05/30/2024 FINDINGS: LUNGS AND PLEURAL SPACES: Unremarkable. No consolidation or edema. No pneumothorax. No effusion. HEART: Unremarkable. Cardiac silhouette not enlarged. MEDIASTINUM: Central airways and mediastinal contour are unremarkable. BONES/JOINTS: Unremarkable. No acute fracture. SOFT TISSUES: Unremarkable. RAD/Chest 1 View (Portable) IMPRESSION: No radiographic evidence of acute cardiopulmonary disease. Electronically Signed: Raoul Miller MD at 19:55 EST , CC: Dr. Karl العراقي, ; Dr. Brandon Monet DO Plug Wirer: Signed Normal [facility] Chloride measurementOrdered By: Karl العراقي on 08-07-2024 Chloride [Moles/Vol] 101 mmol/L 98-107 [facility] Emergency Department Summary on 08-07-2024 Emergency Department Summary [facility] Medical Records Department [address] [place] [address] Emergency Department Summary 08/07/24 MR#: [id number] Acct: [id number] Name: ISA TOVAR Rep #: [id number] : 1970 54 From: Karl العراقي DO PCP: Dr. Brandon Monet DO Status:REG ER Location: ED HPI History of Present Illness Chief Complaint: Hypertension Narrative Narrative: Chief complaint and HPI: HTN. 54-year-old female with uncontrolled hypertension presents for evaluation of hypertension. Patient states that she has been struggling with hypertension since last fall. She states she has been on multiple medications without control. Originally was on lisinopril and switched to amlodipine now is on losartan 50 mg daily. Patient states that her losartan was just increased to 50 mg daily last week. She states she has been monitoring her blood pressure all week and it has been elevated. The highest SBP was in the 200s. Patient states she called her PCPs office today and they told her to take an extra losartan. She took 100 mg of losartan at 9 AM. Patient states they advised her to go to the emergency department. She states she has intermittently had a headache. She denies any fever, chills, chest pain, shortness of breath, abdominal pain, nausea, vomiting, bilateral lower extremity swelling or or pain. Currently is asymptomatic. Review of systems: See HPI Medications: As listed on the chart Allergies: As listed on the chart PFSH: Per chart Vital signs: As listed on the chart. Reviewed. Physical exam: Gen: A O x3, NAD Head: Normocephalic, atraumatic Eyes: No sclera icterus, conjunctiva clear ENT: Moist mucous membranes Neck: Trachea midline, No JVD CV: RRR, no murmurs, no peripheral edema Resp: Lungs CTA BL, no w/r/c GI: Abd soft, non-distended, non-tender, no r/r/g Musc: Full ROM, no deformity Skin: Warm, dry Neuro: Alert, oriented, grossly intact, sensation intact Psych: Cooperative, appropriate mood and [facility] (Updated 08/07/24 @ 18:32 by Lalita Winchester) Hypertension Home Medications ???Medication ???Instructions ???Recorded ???Last Taken ???Type fluoxetine 40 mg capsule 40 mg PO DAILY 05/30/24 Unknown History losartan 50 mg tablet 50 mg PO DAILY 08/07/24 Unknown History Allergy/AdvReac Type Severity Reaction Status Date / Time No Known Allergies Allergy Verified 05/30/24 12:18 Surgical History (Updated 08/07/24 @ 18:32 by Lalita Winchester) H/O: hysterectomy Social History Smoking Status: Never smoker EXAM Physical Exam Const Vital Signs: 08/07/24 17:39 08/07/24 18:34 08/07/24 18:59 Temperature 97.1 F L Temperature Source Temporal Pulse Rate 69 Respiratory Rate 16 Respiratory Effort Normal Respiratory Pattern Normal Blood Pressure 177/99 H 158/87 H Blood Pressure Mean 125 110 Pulse Ox 97 Oxygen Delivery Method Room Air MDM MDM MDM Narrative Medical decision making narrative: 54-year-old female with uncontrolled hypertension presents for evaluation of hypertension. Differential diagnosis includes but is not limited to hypertension urgency, hypertensive emergency. Patient's blood pressure on arrival was 177/99 otherwise vitals are stable. She is currently asymptomatic. Will give 5 mg IV hydralazine. Will obtain basic labs with chest x-ray to assess for hypertensive emergency. EKG and chest x-ray reviewed see below. CBC without leukocytosis or anemia. BMP relatively unremarkable. No GLORIA. Troponin unremarkable. Patient not having any chest pain therefore I do not think delta troponin is needed at this time. Patient's symptoms are consistent with hypertension urgency. Repeat blood pressure is 158/87. Patient is stable to discharge home. Patient was educated on continuing the losartan at 100 mg daily. Will also give her prescription for clonidine as needed for SBP greater than 175. Follow-up with PCP. Return precautions explained. Monitor blood pressure at home. She confirmed understanding the plan. Patient stable to discharge home. EKG: Interpreted by me/EM physician: EKG shows normal sinus rhythm without any acute ischemic changes. Heart rate 60. This was compared to her previous EKG and similar. Diagnostic: Interpreted by me/EM physician: Chest x-ray without pneumonia, effusion, cardiomegaly, pneumothorax Impression: 1. Hypertension urgency 2. History of hypertension, uncontrolled Lab Data Labs: Laboratory Results - last 24 hr 08/07/24 18:23 WBC 4.9 RBC 3.77 L Hgb 12.2 Hct 35.4 L MCV 93.9 MCH 32.4 H MCHC 34.5 RDW Std Deviation 43.8 RDW Coeff of Mehran 12.6 Plt Count 273 MPV 9.0 Immature Gran % (Auto) 0.000 Neut % (Auto) 57.4 Lymph % (Auto) 31.5 [place] % (Auto) 7.4 (more content not included)... Normal [facility] Eosinophil percentageOrdered By: Karl العراقي on 08-07-2024 Eosinophils/100 WBC (Bld) 2.7 % 0-[address] [facility] Erythrocyte distribution wid th ratioOrdered By: Karl العراقي on 08-07-2024 Erythrocyte distribution width (RBC) [Ratio] 12.6 % 11.6-14.[address] [facility] Erythrocyte distribution wid th standard deviationOrdered By: Karl Downs on 08-07-2024 Erythrocyte distribution width (RBC) [Entitic vol] 43.8 fL 35.1-43.[address] [facility] Estimated glomerular filtrat ion rate (GFR) AmericanOrdered By: Karl العراقي on 08-07-2024 Estimated GFR (MDRD) Amer 102 mL/min >[address] [facility] Comment on above: GFR Calc Estimation of creatinine pedro aranceOrdered By: Karl العراقي on 08-07-2024 Estimated Creatinine Clearance Calc 82.29 ml/min [facility] Glomerular filtration rate ( GFR) estimationOrdered By: Karl العراقي on 08-07-2024 Estimated GFR (MDRD) Non-Af Amer 85 mL/min >[address] [facility] Comment on above: Non- GFR Calc Glucose measurementOrdered B y: Karl العراقي on 08-07-2024 Glucose [Mass/Vol] 79 mg/dL 74-106 [facility] Hematocrit Auto (Bld) [Volum e fraction]Ordered By: Karl العراقي on 08-07-2024 Hematocrit (Bld) [Volume fraction] 35.4 % Low 37-[address] [facility] Hemoglobin measurementOrdere d By: [facility] on 08-07-2024 Hemoglobin (Bld) [Mass/Vol] 12.2 g/dL 12.0-15.[address] [facility] Immature granulocytes/100 WB C Auto (Bld)Ordered By: [place] Dulce Maria on 08-07-2024 Immature granulocytes/100 WBC (Bld) 0.000 % 0.0-0.[address] [facility] Comment on above: IG% - Immature Granu locytes (promyelocytes, myelocytes and metamyelocytes) > 1% indicates that a LEFT SHIFT is Present. L501.4020on 08-07-2024 TROPONIN-I HS 4 pg/mL Normal 3.0-54.[address] [facility] Comment on above: Order Comment: 'TROP ' Serial specimen #1, #2 or #3: 1 Result Comment: Plea se Note: New Test Units and Gender Specific Reference Ranges. For more information see Policy Stat Procedure [place] High Sensitivity Troponin (TNIH) and attachments. Performed By: #### L 100.0100, L500.2500, L501.5200 #### [facility] [address] [place], [address] Lymphocytes Auto (Unsp spec) [#/Vol]Ordered By: Karl العراقي on 08-07-2024 Lymphocytes (Bld) [#/Vol] 1.53 10*3/uL 0.83-4.[address] [facility] Lymphocytes/100 WBC Auto (Un sp spec)Ordered By: Karl العراقي on 08-07-2024 Lymphocytes/100 WBC (Bld) 31.5 % 19-[address] [facility] MCV (mean corpuscular volume ) determinationOrdered By: Karl العراقي on 08-07-2024 MCV (RBC) [Entitic vol] 93.9 fL 81-99 [facility] Mean corpuscular hemoglobin (MCH) determinationOrdered By: Karl العراقي on 08-07-2024 MCH (RBC) [Entitic mass] 32.4 pg High 27.0-32.[address] [facility] Mean corpuscular hemoglobin concentration (MCHC) determinationOrdered By: Karl العراقي on 08-07-2024 MCHC (RBC) [Mass/Vol] 34.5 g/dL 32-36 [facility] Mean platelet volume determi nationOrdered By: Karl العراقي on 08-07-2024 Platelet mean volume (Bld) [Entitic vol] 9.0 fL 6.2-12.[address] [facility] Monocyte percentageOrdered B y: Karl العراقي on 08-07-2024 Monocytes/100 WBC (Bld) 7.4 % 0-10 [facility] Neutrophil percentageOrdered By: Karl العراقي on 08-07-2024 Neutrophils/100 WBC (Bld) 57.4 % 47-[address] [facility] Nucleated red blood cell per centageOrdered By: aKrl العراقي on 08-07-2024 Nucleated RBC/100 WBC (Bld) [Ratio] 0 % 0-[address] [facility] Platelet countOrdered By: Braeden العراقي on 08-07-2024 Platelets (Bld) [#/Vol] 273 10*3/uL 150-[address] [facility] Potassium measurementOrdered By: Karl اعلراقي on 08-07-2024 Potassium [Moles/Vol] 3.6 mmol/L 3.5-5.1 [facility] RBC Auto (Bld) [#/Vol]Ordere d By: Karl العراقي on 08-07-2024 RBC (Bld) [#/Vol] 3.77 10*6/uL Low 4.2-5.4 [facility] Serum anion gap measurementO rdered By: Karl العراقي on 08-07-2024 Anion gap [Moles/Vol] 8 mmol/L 12-02 [facility] Serum or plasma calcium ramon urement (mass/volume)Ordered By: Karl Downs on 08-07-2024 Calcium [Mass/Vol] 9.7 mg/dL 8.5-10.1 [facility] Serum or plasma creatinine m easurement (mass/volume)Ordered By: Karl Downs on 08-07-2024 Creatinine [Mass/Vol] 0.76 mg/dL 0.55-1.02 [facility] Comment on above: The validity of the calculated GFR & GFRAA in patients over 70 years has not been determined. Clinical correlation is essential. Serum or plasma urea nitroge n measurement (mass/volume)Ordered By: Karl العراقي on 08-07-2024 Urea nitrogen [Mass/Vol] 8 mg/dL 02-[address] [facility] Sodium levelOrdered By: Isrrael العراقي on 08-07-2024 Sodium [Moles/Vol] 134 mmol/L Low 136-145 [facility] Troponin IOrdered By: Karl العراقي on 08-07-2024 Troponin I High Sensitivity 4 pg/mL 3.0-54.[address] [facility] Comment on above: Please Note: New Sherron t Units and Gender Specific Reference Ranges. For more information see Policy Stat Procedure [place] High Sensitivity Troponin (TNIH) and attachments. White blood cell (WBC) count Ordered By: Karl العراقي on 08-07-2024 WBC (Bld) [#/Vol] 4.9 10*3/uL 4.4-11.0 [facility] CNOVon 07-29-2024 CNOV Office Visit (FAMPWS ) ISA TOVAR ([id number]) 1970 F Date Time Provider Department 07/29/24 12:00 PM IVORY ESPINOZA RUPA During your visit today, we recorded the following information about you: Pulse Blood pressure Weight 61/minute 154/88 70.9 kg AlexisIvory APRN.SCREEN PRINTER HELPER 07/29/2024 3:49 PM Signed Chief Complaint Patient presents with: BP Check: Has not started new med change- see message 07/20 HPI Isa Tovar is a 54 year old female who presents here today for Above Complaints. BP-ran out of amlodipine on 07/22 and ankle swelling resolved 2 days later. Has continued losartan 25mg daily. A few home Bps have been up to 170-180 systolic. Does get a headache when this happens. Overall home Bps since off the amlodipine have been 150's systolic. Prozac-increased from 40mg to 60mg about a month ago. Still feeling kind of down and lack of motivation. Wondering if medication could be increased a little bit more. Past medical history, appointments, medications, allergies reviewed. Previous Medical History PAST MEDICAL HISTORY Diagnosis Date Depression Previous Surgical History PAST SURGICAL HISTORY Procedure Laterality Date COLONOSCOPY SCREENING 08/16/2022 repeat in 5 years, poor bowel prep EXCISION GANGLION WRIST DORSAL/VOLAR PRIMARY Right 08/30/2022 Excision ganglion cyst right wrist and open palmar fasciectomy HAND SURGERY HX Right Dr. Dougherty TONSILLECTOMY PRIMARY/SECONDARY Tonsillectomy VAGINAL HYSTERECTOMY UTERUS 250 GM/< 07/21/2008 Hysterectomy, vaginal Family History FAMILY HISTORY Problem Relation Age of Onset Hypertension Mother Hypertension Father Hypertension Maternal Grandmother Heart Maternal Grandmother Hypertension Sister Heart Brother congenital valve dx, valve replacement/repair Patient Allergies ALLERGIES Allergen Reactions Lisinopril Cough Current Medications Current Outpatient Medications on File Prior to Visit Medication Sig losartan (COZAAR) 50 mg tablet Take 1 tablet by mouth once daily. amLODIPine (NORVASC) 5 mg tablet Take 1 tablet by mouth once daily. FLUoxetine (PROZAC) 40 mg capsule Take 1 capsule by mouth once daily. In addition to 20mg capsule for total of 60mg daily FLUoxetine (PROZAC) 20 mg capsule Take 1 capsule by mouth once daily. In addition to 40mg capsule for total of 60mg daily multivitamin tablet Take 1 tablet by mouth once daily. famotidine (PEPCID) 20 mg tablet Take 1 tablet by mouth at bedtime as needed. Qyrryif-Mkuibdask-Wxnv tab Take by mouth. No current facility-administered medications on file prior to visit. Social History Social History Tobacco Use Smoking status: Former Current packs/day: 0.00 Types: Cigarettes Start date: 03/04/1985 Quit date: 03/04/1995 Years since quittin.4 Smokeless tobacco: Never Vaping Use Vaping status: Never Used Substance Use Topics Alcohol use: Yes Comment: occasionally Drug use: No Review of Symptoms REVIEW OF SYSTEMS See HPI, otherwise negative EXAM: BP 154/88 (BP Site: Left Arm, BP Position: Sitting, BP Cuff Size: Regular Adult) Pulse 61 Wt 70.9 kg (156 lb 3.2 oz) SpO2 100% BMI 24.46 kg/m? General Appearance: Well appearing, alert, in no acute distress, well-hydrated, well nourished.. Lungs: Lungs clear to auscultation. No wheezing, rhonchi, rales.. Heart: RRR without murmur, gallop, or rubs. No ectopy. Psychiatric: pleasant, cooperative. Health Maintenance List Anxiety Screening Never done BP Controlled (<130/80) Never done Pneumococcal Vaccine: 50+(1 of 1 - PCV) Never done Mammogram Screening due on 08/23/2023 Influenza Vaccine(1) due on 03/21/2024 Covid-19 Vaccine( - season) Never done Shingrix Vaccine(1 of 2) due on 08/01/2024 Annual PCP Team Chronic Disease Visit due on 07/01/2025 Diabetes Screening due on 08/01/2026 Colorectal Cancer Screening due on 08/16/2027 Lipid Screening due on 08/01/2028 DTaP,Tdap,Td Vaccine(2 - Td or Tdap) due on 03/21/2032 Hepatitis B Vaccine Discontinued Cervical Cancer Screening Discontinued Hepatitis C Screening Discontinued HIV Screening Discontinued Data reviewed Previous records, office notes ASSESSMENT/PLAN: 1. Primary hypertension - ICD9: 401.9, ICD10: I10 (primary diagnosis) Discontinue the amlodipine-placed on allergy/intolerance list due to edema Increase losartan to 50mg daily. Will send [employer] message in 2 weeks with update of daily BP and HR results. At that point may consider increase to 100mg losartan at that time. She will f/u in the office in 1 month. 2. Dysthymia - ICD9: 300.4, ICD10: F34.1 Increase fluoxetine to 80mg daily. Will f/u in the office in 1 month for reevaluation. May consider cutting the fluoxetine back and/or adding another medication such as bupropion. - FLUOXETINE 40 MG CAPSULE - FLUOXETINE 40 MG CAPS (more content not included)... Normal [facility] CNOVon 07-01-2024 CNOV Office Visit (RUPA ) ISA TOVAR ([id number]) 1970 F Date Time Provider Department 07/01/24 12:40 PM IVORY ESPINOZA During your visit today, we recorded the following information about you: Pulse Respiration Blood pressure Weight 65/minute 14/minute 144/88 71.8 kg Ivory Espinoza APRN.CNP 07/01/2024 3:12 PM Signed Chief Complaint Patient presents with: BP Check HPI Isa Tovar is a 54 year old female who presents here today for Above Complaints.. BP-denies CP, SOB, h/a, palpitations Depression-quiet, doesn't want to do much, mother in September. Just wondering if she would be able to increase her Prozac from 40mg. Past medical history, appointments, medications, allergies reviewed. Previous Medical History PAST MEDICAL HISTORY Diagnosis Date Depression Previous Surgical History PAST SURGICAL HISTORY Procedure Laterality Date COLONOSCOPY SCREENING 08/16/2022 repeat in 5 years, poor bowel prep EXCISION GANGLION WRIST DORSAL/VOLAR PRIMARY Right 08/30/2022 Excision ganglion cyst right wrist and open palmar fasciectomy HAND SURGERY HX Right Dr. Dougherty TONSILLECTOMY PRIMARY/SECONDARY Tonsillectomy VAGINAL HYSTERECTOMY UTERUS 250 GM/< 07/21/2008 Hysterectomy, vaginal Family History FAMILY HISTORY Problem Relation Age of Onset Hypertension Mother Hypertension Father Hypertension Maternal Grandmother Heart Maternal Grandmother Hypertension Sister Heart Brother congenital valve dx, valve replacement/repair Patient Allergies ALLERGIES Allergen Reactions Lisinopril Cough Current Medications Current Outpatient Medications on File Prior to Visit Medication Sig amLODIPine (NORVASC) 10 mg tablet Take 1 tablet by mouth once daily. FLUoxetine (PROZAC) 40 mg capsule Take 1 capsule by mouth once daily. multivitamin tablet Take 1 tablet by mouth once daily. famotidine (PEPCID) 20 mg tablet Take 1 tablet by mouth at bedtime as needed. Vepnciy-Hljupgwvs-Aice tab Take by mouth. No current facility-administered medications on file prior to visit. Social History Social History Tobacco Use Smoking status: Former Current packs/day: 0.00 Types: Cigarettes Start date: 03/04/1985 Quit date: 03/04/1995 Years since quittin.3 Smokeless tobacco: Never Vaping Use Vaping status: Never Used Substance Use Topics Alcohol use: Yes Comment: occasionally Drug use: No Review of Symptoms REVIEW OF SYSTEMS See HPI, otherwise negative EXAM: BP 158/94 (BP Site: Left Arm, BP Position: Sitting, BP Cuff Size: Regular Adult) Pulse 65 Resp 14 Wt 71.8 kg (158 lb 6.4 oz) SpO2 100% BMI 24.81 kg/m? General Appearance: Well appearing, alert, in no acute distress, well-hydrated, well nourished.. Lungs: Lungs clear to auscultation. No wheezing, rhonchi, rales.. Heart: RRR without murmur, gallop, or rubs. No ectopy. Psychiatric: pleasant, cooperative. Health Maintenance List Anxiety Screening Never done BP Controlled (<130/80) Never done Mammogram Screening due on 08/23/2023 Influenza Vaccine(1) due on 03/21/2024 Covid-19 Vaccine( season) Never done Shingrix Vaccine(1 of 2) due on 08/01/2024 Annual PCP Team Chronic Disease Visit due on 06/02/2025 Diabetes Screening due on 08/01/2026 Colorectal Cancer Screening due on 08/16/2027 Lipid Screening due on 08/01/2028 DTaP,Tdap,Td Vaccine(2 - Td or Tdap) due on 03/21/2032 Hepatitis B Vaccine Discontinued Cervical Cancer Screening Discontinued Hepatitis C Screening Discontinued HIV Screening Discontinued Data reviewed Previous records, office notes ASSESSMENT/PLAN: 1. Primary hypertension - ICD9: 401.9, ICD10: I10 (primary diagnosis) - Uncontrolled - Recommend home blood pressure monitoring, to bring results to next visit - Encouraged sodium restriction, DASH or Mediterranean diet - Recommend regular aerobic exercise - continue amlodipine 10mg daily. Stop lisinopril d/t cough. Begin losartan 25mg daily. She will send [employer] message in 2 weeks with BP results. Will likely need to increase to 50mg daily at that point. She will then f/u in the office in a month from now, may need to make additional increase to 100mg at that point. - LOSARTAN 25 MG TABLET - AMLODIPINE 10 MG TABLET 2. Dysthymia - ICD9: 300.4, ICD10: F34.1 Increase fluoxetine from 40mg to 60mg daily. - FLUOXETINE 40 MG CAPSULE Ivory Espinoza APRN.CNP Allergies As of Date: 07/01/2024 Noted Allergy Reaction LISINOPRIL 06/02/2024 3 - Cough Date Reviewed: 07/01/2024 Reviewed by: Ivory Espinoza APRN.SCREEN PRINTER HELPER - Fully Assessed Reason for Visit: BP Check [142] Primary Visit Diagnosis:Primary hypertension [I10] Other Visit Diagnosis:Dysthymia [F34.1] Order(s):losartan (COZAAR) 25 mg tabletTake 1 tablet by mouth once daily.Disp: 30 tabletRfl: 2 amLODIPine (NORVASC) 10 (more content not included)... Normal [facility] CNOVon 06-02-2024 CNOV Office Visit (FAMPWS ) ISA TOVAR ([id number]) 1970 F Date Time Provider Department 06/02/24 3:40 PM IVORY ESPINOZA During your visit today, we recorded the following information about you: Pulse Respiration Blood pressure Weight 89/minute 16/minute 163/96 70 kg Bernadette Daily MA 06/02/2024 3:38 PM Signed 06/02/2024: Home BP Cuff Validated. Home BP: 186/96 Office BP: 188/110 Bernadette Daily MA Ivory Espinoza APRN.SCREEN PRINTER HELPER 06/02/2024 6:09 PM Signed Chief Complaint Patient presents with: BP Check: Recently in ER 05/30 for hypertension, taking 40mg of lisinopril, brain fog, lightheaded, deep dry cough x couple weeks HPI Isa Tovar is a 54 year old female who presents here today for Above Complaints.. Cough-the last few weeks has had a dry cough that starts as a tickle. Has tried multiple OTC without improvement. Lisinopril has been increased from 10mg to 40mg over the past month and BP's do not seem to be improving. Was in the ER on 05/30 with SBP over 200. Denies CP, SOB. States did have some brain fog and lightheadedness which was what prompted her to go to the ER. But currently asymptomatic. Past medical history, appointments, medications, allergies reviewed. Previous Medical History PAST MEDICAL HISTORY Diagnosis Date Depression Previous Surgical History PAST SURGICAL HISTORY Procedure Laterality Date COLONOSCOPY SCREENING 08/16/2022 repeat in 5 years, poor bowel prep EXCISION GANGLION WRIST DORSAL/VOLAR PRIMARY Right 08/30/2022 Excision ganglion cyst right wrist and open palmar fasciectomy HAND SURGERY HX Right Dr. Dougherty TONSILLECTOMY PRIMARY/SECONDARY Tonsillectomy VAGINAL HYSTERECTOMY UTERUS 250 GM/< 07/21/2008 Hysterectomy, vaginal Family History FAMILY HISTORY Problem Relation Age of Onset Hypertension Mother Hypertension Father Hypertension Maternal Grandmother Heart Maternal Grandmother Hypertension Sister Heart Brother congenital valve dx, valve replacement/repair Patient Allergies ALLERGIES No Known Allergies Current Medications Current Outpatient Medications on File Prior to Visit Medication Sig lisinopril (ZESTRIL) 20 mg tablet Take 1 tablet by mouth once daily. (Patient taking differently: Take 20 mg by mouth once daily. Taking 40mg) FLUoxetine (PROZAC) 40 mg capsule Take 1 capsule by mouth once daily. multivitamin tablet Take 1 tablet by mouth once daily. famotidine (PEPCID) 20 mg tablet Take 1 tablet by mouth at bedtime as needed. Udbhbke-Qwhvbwrdu-Rhcr tab Take by mouth. No current facility-administered medications on file prior to visit. Social History Social History Tobacco Use Smoking status: Former Current packs/day: 0.00 Types: Cigarettes Start date: 03/04/1985 Quit date: 03/04/1995 Years since quittin.2 Smokeless tobacco: Never Vaping Use Vaping status: Never Used Substance Use Topics Alcohol use: Yes Comment: occasionally Drug use: No Review of Symptoms REVIEW OF SYSTEMS See HPI, otherwise negative EXAM: BP 188/110 (BP Site: Left Arm, BP Position: Sitting, BP Cuff Size: Regular Adult) Pulse 89 Resp 16 Wt 70 kg (154 lb 5.2 oz) SpO2 99% BMI 24.17 kg/m? General Appearance: Well appearing, alert, in no acute distress, well-hydrated, well nourished.. Lungs: Lungs clear to auscultation. No wheezing, rhonchi, rales.. Heart: RRR without murmur, gallop, or rubs. No ectopy. Psychiatric: pleasant, cooperative. Health Maintenance List Anxiety Screening Never done Mammogram Screening due on 08/23/2023 Influenza Vaccine(1) due on 03/21/2024 Covid-19 Vaccine( season) Never done Shingrix Vaccine(1 of 2) due on 08/01/2024 Diabetes Screening due on 08/01/2026 Colorectal Cancer Screening due on 08/16/2027 Lipid Screening due on 08/01/2028 DTaP,Tdap,Td Vaccine(2 - Td or Tdap) due on 03/21/2032 Hepatitis B Vaccine Discontinued Cervical Cancer Screening Discontinued Hepatitis C Screening Discontinued HIV Screening Discontinued Data reviewed Previous records, office notes ASSESSMENT/PLAN: 1. Primary hypertension - ICD9: 401.9, ICD10: I10 She will stop the lisinopril, begin amlodipine 5mg daily. Will send BP and HR results via [employer] in 1 week. Suspect will need to increase amlodipine at that time. F/u in the office in 1 month. - AMLODIPINE 5 MG TABLET Ivory Espinoza APRN.Ivory Alcantar APRN.CNP 06/02/2024 4:21 PM Addendum Stop the lisinopril, start the amlodipine (Norvasc). Send me your BP and heart rates in a week through [employer]. Allergies As of Date: 06/02/2024 Noted Allergy Reaction LISINOPRIL 06/02/2024 3 - Cough Date Reviewed: 06/02/2024 Reviewed by: Ivory Espinoza APRN.CNP - Fully Assessed Reason for Visit: BP Check [142] Cmt: Recently in ER 05/30 for hypertension, taking 40mg of lisinopril, br (more content not included)... Normal [facility] 12 Lead EKGon 05-30-2024 12 Lead EKG [facility] Cardiovascular Services [address] [place] [address] 12 Lead EKG 05/30/24 1228 MR#: [id number] Acct: [id number] Name: ISA TOVAR Rep #: [id number] : 1970 54 From: Mike Scott MD Attending Dr: Status: DEP ER Ordering Dr: Mathew Montaño BANDSAW OPERATOR-Vijay Date: 05/30/24 Location: ED Sex: F C Admitted: Test Reason : HTN Blood Pressure : */* mmHG Vent. Rate : 74 BPM Atrial Rate : 74 BPM P-R Int : 164 ms QRS Dur : 78 ms QT Int : 398 ms P-R-T Axes : 31 66 67 degrees QTcB Int : 441 ms Normal sinus rhythm Septal infarct , age undetermined Abnormal ECG Confirmed by MIKE SCOTT MD ([id number]), video editor KARIE JARA ([id number]) on 05/31/2024 10:19:57 AM Referred By: Confirmed By: MIKE SCOTT MD 05/31/24 1019 Date Mike Scott MD CC: BANDSAW OPERATOR-C Mathew Montaño; Dr. Karl العراقي DO; Dr. Brandon Monet DO Signed Normal [facility] CBC W/Diff, Automatedon 11-1 0-2024 Absolute Lymph 0.88 X10 3/uL Normal 0.83-4.[address] [facility] Comment on above: Performed By: #### L 100.0100, L500.2500, L501.5200 #### [facility] [address] [place], [address] Absolute Neut 3.1 X10 3/uL Normal 2.0-7.[address] [facility] Comment on above: Performed By: #### L 100.0100, L500.2500, L501.5200 #### [facility] [address] [place], [address] Basophils/100 WBC (Bld) 0.7 % Normal 0-1 [facility] Comment on above: Performed By: #### L 100.0100, L500.2500, L501.5200 #### [facility] [address] [place], [address] Eosinophils/100 WBC (Bld) 2.2 % Normal 0-[address] [facility] Comment on above: Performed By: #### L 100.0100, L500.2500, L501.5200 #### [facility] [address] [place], [address] Erythrocyte distribution width (RBC) [Ratio] 12.0 % Normal 11.6-14.[address] [facility] Comment on above: Performed By: #### L 100.0100, L500.2500, L501.5200 #### [facility] [address] [place], [address] Hematocrit (Bld) [Volume fraction] 37.1 % Normal 37-[address] [facility] Comment on above: Performed By: #### L 100.0100, L500.2500, L501.5200 #### [facility] [address] [place], [address] Hemoglobin (Bld) [Mass/Vol] 12.8 g/dL Normal 12.0-15.[address] [facility] Comment on above: Performed By: #### L 100.0100, L500.2500, L501.5200 #### [facility] [address] [place], [address] IG% 0.400 Normal 0.0-0.[address] [facility] Comment on above: Result Comment: IG% - Immature Granulocytes (promyelocytes, myelocytes and metamyelocytes) > 1% indicates that a LEFT SHIFT is Present. Performed By: #### L 100.0100, L500.2500, L501.5200 #### [facility] [address] [place], [address] Lymphocytes/100 WBC (Bld) 19.3 % Normal 19-[address] [facility] Comment on above: Performed By: #### L 100.0100, L500.2500, L501.5200 #### [facility] [address] [place], [address] MCH (RBC) [Entitic mass] 32.6 pg High 27.0-32.[address] [facility] Comment on above: Performed By: #### L 100.0100, L500.2500, L501.5200 #### [facility] [address] [place], [address] MCHC (RBC) [Mass/Vol] 34.5 g/dL Normal 32-36 [facility] Comment on above: Performed By: #### L 100.0100, L500.2500, L501.5200 #### [facility] [address] [place], [address] MCV (RBC) [Entitic vol] 94.4 fL Normal 81-99 [facility] Comment on above: Performed By: #### L 100.0100, L500.2500, L501.5200 #### [facility] [address] [place], [address] Monocytes/100 WBC (Bld) 8.8 % Normal 0-10 [facility] Comment on above: Performed By: #### L 100.0100, L500.2500, L501.5200 #### [facility] [address] [place], [address] Neutrophils/100 WBC (Bld) 68.6 % Normal 47-[address] [facility] Comment on above: Performed By: #### L 100.0100, L500.2500, L501.5200 #### [facility] [address] [place], [address] Nucleated RBC (Bld) [#/Vol] 0 10*3/uL Normal 0-[address] [facility] Comment on above: Performed By: #### L 100.0100, L500.2500, L501.5200 #### [facility] [address] [place], [address] Platelet mean volume (Bld) [Entitic vol] 9.2 fL Normal 6.2-12.[address] [facility] Comment on above: Performed By: #### L 100.0100, L500.2500, L501.5200 #### [facility] [address] [place], [address] Platelets (Bld) [#/Vol] 270 10*3/uL Normal 150-[address] [facility] Comment on above: Performed By: #### L 100.0100, L500.2500, L501.5200 #### [facility] [address] [place], [address] RBC (Bld) [#/Vol] 3.93 10*6/uL Low 4.2-5.4 [facility] Comment on above: Performed By: #### L 100.0100, L500.2500, L501.5200 #### [facility] [address] [place], [address] RDW SD 42.4 fl Normal 35.1-43.[address] [facility] Comment on above: Performed By: #### L 100.0100, L500.2500, L501.5200 #### [facility] [address] [place], [address] WBC (Bld) [#/Vol] 4.6 10*3/uL Normal 4.4-11.0 [facility] Comment on above: Performed By: #### L 100.0100, L500.2500, L501.5200 #### [facility] [address] [place], [address] Chest PA and Lateralon 05-30 Chest PA and Lateral [facility] Imaging Services [address] [place] [address] Chest PA and Lateral MR#: [id number] Acct: [id number] Name: ISA TOVAR Rep #: [id number] : 1970 F 54 From: Isaac Lee PCP: Dr. Brandon Monet, Status: DEP ER Study: Chest PA and Lateral Date of Exam: 05/30/24 Exam# [id number] Ordering Dr: Mathew Montaño BANDSAW OPERATOR-C [id number] EXAM: XR CHEST, 2 VIEWS CLINICAL INDICATION: cough TECHNIQUE: Frontal and lateral views of the chest. COMPARISON: No relevant prior studies available. FINDINGS: LUNGS AND PLEURAL SPACES: Unremarkable. No consolidation or edema. No pneumothorax. No effusion. HEART: Unremarkable. Cardiac silhouette not enlarged. MEDIASTINUM: Central airways and mediastinal contour are unremarkable. BONES/JOINTS: Unremarkable. No acute fracture. SOFT TISSUES: Unremarkable. RAD/Chest PA and Lateral IMPRESSION: No radiographic evidence of acute cardiopulmonary disease. Electronically Signed: Isaac Patrick MD at 14:57 EST , CC: NASIM Montaño; Dr. Brandon Monet, Plug Wirer: Signed Normal [facility] Comprehensive Metabolic Prof ilrina 05-30-2024 Albumin [Mass/Vol] 3.8 g/dL Normal 3.2-5.0 [facility] Comment on above: Order Comment: 'TROP ' Serial specimen #1, #2 or #3: 1 Performed By: #### L 100.0100, L500.2500, L501.5200 #### [facility] [address] [place], [address] Albumin/Globulin [Mass ratio] 1.1 {ratio} Normal 0.9-2.[address] [facility] Comment on above: Order Comment: 'TROP ' Serial specimen #1, #2 or #3: 1 Performed By: #### L 100.0100, L500.2500, L501.5200 #### [facility] [address] [place], [address] ALK P 96 U/L Normal 45-[address] [facility] Comment on above: Order Comment: 'TROP ' Serial specimen #1, #2 or #3: 1 Performed By: #### L 100.0100, L500.2500, L501.5200 #### [facility] [address] [place], [address] ALT [Catalytic activity/Vol] 24 U/L Normal 13-[address] [facility] Comment on above: Order Comment: 'TROP ' Serial specimen #1, #2 or #3: 1 Performed By: #### L 100.0100, L500.2500, L501.5200 #### [facility] [address] [place], [address] AST [Catalytic activity/Vol] 20 U/L Normal 15-[address] [facility] Comment on above: Order Comment: 'TROP ' Serial specimen #1, #2 or #3: 1 Performed By: #### L 100.0100, L500.2500, L501.5200 #### [facility] [address] [place], [address] Bilirubin [Mass/Vol] 0.50 mg/dL Normal 0.20-1.00 [facility] Comment on above: Order Comment: 'TROP ' Serial specimen #1, #2 or #3: 1 Result Comment: For patients on eltrombopag therapy, use of Dimension Bim[place] TBIL is not recommended. Performed By: #### L 100.0100, L500.2500, L501.5200 #### [facility] [address] [place], [address] BUN/CRE 10.7 RATIO Normal 10-[address] [facility] Comment on above: Order Comment: 'TROP ' Serial specimen #1, #2 or #3: 1 Performed By: #### L 100.0100, L500.2500, L501.5200 #### [facility] [address] [place], [address] CA,Total 9.2 mg/dL Normal 8.5-10.[address] [facility] Comment on above: Order Comment: 'TROP ' Serial specimen #1, #2 or #3: 1 Performed By: #### L 100.0100, L500.2500, L501.5200 #### [facility] [address] [place], [address] Chloride [Moles/Vol] 100 mmol/L Normal 98-107 [facility] Comment on above: Order Comment: 'TROP ' Serial specimen #1, #2 or #3: 1 Performed By: #### L 100.0100, L500.2500, L501.5200 #### [facility] [address] [place], [address] CO2 [Moles/Vol] 27.0 mmol/L Normal 21.0-32.[address] [facility] Comment on above: Order Comment: 'TROP ' Serial specimen #1, #2 or #3: 1 Performed By: #### L 100.0100, L500.2500, L501.5200 #### [facility] [address] [place], [address] Creatinine [Mass/Vol] 0.74 mg/dL Normal 0.55-1.02 [facility] Comment on above: Order Comment: 'TROP ' Serial specimen #1, #2 or #3: 1 Result Comment: The validity of the calculated GFR GFRAA in patients over 70 years has not been determined. Clinical correlation is essential. Performed By: #### L 100.0100, L500.2500, L501.5200 #### [facility] [address] [place], [address] ECRCL 84.52 ml/min Normal [facility] Comment on above: Order Comment: 'TROP ' Serial specimen #1, #2 or #3: 1 Performed By: #### L 100.0100, L500.2500, L501.5200 #### [facility] [address] [place], [address] EST GFR - AA 104 mL/min Normal >[address] [facility] Comment on above: Order Comment: 'TROP ' Serial specimen #1, #2 or #3: 1 Result Comment: Afri can [place] GFR Calc Performed By: #### L 100.0100, L500.2500, L501.5200 #### [facility] [address] [place], [address] GAP 7 Normal 5-[address] [facility] Comment on above: Order Comment: 'TROP ' Serial specimen #1, #2 or #3: 1 Performed By: #### L 100.0100, L500.2500, L501.5200 #### [facility] [address] [place], [address] GFR/1.73 sq M.predicted among non-blacks MDRD (S/P/Bld) [Vol rate/Area] 86 mL/min/{1.73_m2} Normal >[address] [facility] Comment on above: Order Comment: 'TROP ' Serial specimen #1, #2 or #3: 1 Result Comment: Non- GFR Calc Performed By: #### L 100.0100, L500.2500, L501.5200 #### [facility] [address] [place], [address] Globulin (S) [Mass/Vol] 3.4 g/dL Normal 2.2-4.2 [facility] Comment on above: Order Comment: 'TROP ' Serial specimen #1, #2 or #3: 1 Performed By: #### L 100.0100, L500.2500, L501.5200 #### [facility] [address] [place], [address] Glucose [Mass/Vol] 90 mg/dL Normal 74-106 [facility] Comment on above: Order Comment: 'TROP ' Serial specimen #1, #2 or #3: 1 Performed By: #### L 100.0100, L500.2500, L501.5200 #### [facility] [address] [place], [address] Potassium [Moles/Vol] 3.8 mmol/L Normal 3.5-5.1 [facility] Comment on above: Order Comment: 'TROP ' Serial specimen #1, #2 or #3: 1 Performed By: #### L 100.0100, L500.2500, L501.5200 #### [facility] [address] [place], [address] Sodium [Moles/Vol] 133 mmol/L Low 136-145 [facility] Comment on above: Order Comment: 'TROP ' Serial specimen #1, #2 or #3: 1 Performed By: #### L 100.0100, L500.2500, L501.5200 #### [facility] [address] [place], [address] T PROT 7.2 g/dL Normal 6.4-8.[address] [facility] Comment on above: Order Comment: 'TROP ' Serial specimen #1, #2 or #3: 1 Performed By: #### L 100.0100, L500.2500, L501.5200 #### [facility] [address] [place], [address] Urea nitrogen [Mass/Vol] 8 mg/dL Normal 7-[address] [facility] Comment on above: Order Comment: 'TROP ' Serial specimen #1, #2 or #3: 1 Performed By: #### L 100.0100, L500.2500, L501.5200 #### [facility] [address] [place], [address] Emergency Department Summary on 05-30-2024 Emergency Department Summary [facility] Medical Records Department [address] [place] [address] Emergency Department Summary 05/30/24 MR#: [id number] Acct: [id number] Name: ISA TOVAR Rep #: [id number] : 1970 54 From: Karl العراقي DO PCP: Dr. Brandon Monet, DO Status:[facility] ER Location: ED [facility] History of Present Illness Chief Complaint: Hypertension Narrative Narrative: Patient is a 54-year-old female with history of hypertension is currently seeing her PCP regarding her elevated blood pressure has been ongoing for the last 3 to 4 weeks. Patient is currently on lisinopril 20 mg daily. She took her last dose at 10 AM today. Pay states that her blood pressure still 200/1 100s and the doctor told regarding her department. Patient she feels slightly foggy, some flushing however no chest pain or shortness of breath. Patient denies any back pain, patient denies any strokelike symptoms. Here for evaluation. PFSH PFS Home Medications ???Medication ???Instructions ???Recorded ???Last Taken ???Type cephalexin 500 mg capsule 500 mg PO Q6 #40 CAPSULES 03/28/22 Unknown Rx hydrocodone-acetaminop hen 5-325mg 1 tab PO Q4H PRN PRN Pain 2 days 03/28/22 Unknown Rx 5mg-325mg #10 TABLETS fluoxetine 40 mg capsule 40 mg PO DAILY 05/30/24 Unknown History lisinopril 20 mg tablet 20 mg PO DAILY 05/30/24 Unknown History Allergy/AdvReac Type Severity Reaction Status Date / Time No Known Allergies Allergy Verified 05/30/24 12:18 Social History Smoking Status: Never smoker ROS ROS ED ROS Narrative Constitutional: Negative for fever, chills, weight loss, weakness Eyes: Negative for vision loss, vision change, double vision ENT: Negative for any sore throat, ear pain, congestion Cardiovascular: Negative for any chest pain, tightness, palpitations. Positive for feeling of facial flushing, hypertension Respiratory: Negative for any cough, sputum production, hemoptysis, dyspnea, dyspnea on exertion, orthopnea Gastrointestinal: Negative for any abdominal pain, nausea, vomiting, diarrhea, constipation, blood in stool, blood in vomit : Negative for any urinary frequency, dysuria, retention, blood in urine Muscle skeletal: Negative for any neck pain, back pain Neurological: Negative for any headache, syncope, dizziness Skin: Negative for any rashes, itching, abrasions, lacerations Psychiatric: Negative for any depression, anxiety, stress, suicidal ideation, homicidal ideation Hematologic: Negative for any excessive bruising, easy bleeding EXAM Physical Exam Narrative Exam Narrative: Vital signs reviewed. On my initial evaluation, patient was in no distress. The blood pressure on the monitor was 189/92, this is an improvement from 221/111. HEET: Head normocephalic atraumatic, TMs clear bilaterally. Posterior pharynx is clear, moist mucous membranes. Nares clear bilaterally. Neck: Supple with no lymphadenopathy or tenderness. No signs of meningismus. Cardiac: Regular rate and rhythm no murmurs gallops or rubs, equal peripheral pulses bilaterally. Respiratory: Lungs clear to auscultation bilaterally. No chest tenderness. Abdomen: Soft, nontender, nondistended. No abdominal bruit or pulsatile masses. No hepatosplenomegaly Extremities: No peripheral edema, no signs of gross trauma or deformity. Active full range of motion of all extremities. Neuro: Cranial nerves II through XII intact, no focal neurological deficits. Skin: Clean dry and intact with no rash, purpura, petechiae, vesicles or pustules. Backs/flank: No CVA tenderness, no midline spinal tenderness, no deformity. Psych: Normal mood and affect. No SI, HI or acute psychosis. Const Vital Signs: 05/30/24 12:15 05/30/24 12:37 05/30/24 13:28 Temperature 97.9 F Temperature Source Temporal Pulse Rate 97 76 Respiratory Rate 16 14 Respiratory Effort Normal Non-Labored Respiratory Pattern Normal Blood Pressure 221/111 H 175/94 H Blood Pressure Mean 147 121 Pulse Ox 98 96 Oxygen Delivery Method Room Air Room Air 05/30/24 14:14 Temperature 97.4 F L Temperature Source Pulse Rate 72 Respiratory Rate 15 Respiratory Effort Respiratory Pattern Blood Pressure 171/86 H Blood Pressure Mean 114 Pulse Ox 99 Oxygen Delivery Method Positive well nourished and well developed General Appearance ED: well developed Physical Exam Const Vital Signs: 05/30/24 12:15 05/30/24 12:37 05/30/24 13:28 Temperature 97.9 F Temperature Source Temporal Pulse Rate 97 76 Respiratory Rate 16 14 Respiratory Effort Normal Non-Labored Respiratory Pattern Normal Blood Pressure 221/111 H 175/94 H Blood Pressure Mean 147 121 Pulse Ox 98 96 Oxygen Delivery Method Room Air Room Air (more content not included)... Normal [facility] L501.4020on 05-30-2024 TROPONIN-I HS 4 pg/mL Normal 3.0-54.[address] [facility] Comment on above: Order Comment: 'TROP ' Serial specimen #1, #2 or #3: 1 Result Comment: Carlos thacker Note: New Test Units and Gender Specific Reference Ranges. For more information see Policy Stat Procedure [place] High Sensitivity Troponin (TNIH) and attachments. Performed By: #### L 100.0100, L500.2500, L501.5200 #### [facility] [address] [place], [address] Urinalysis, Completeon 05-30 BACTERIA 0 SEEN Normal None Seen [facility] Comment on above: Order Comment: CLEAN CATCH Performed By: #### L 100.0100, L500.2500, L501.5200 #### [facility] [address] [place], [address] EPI,SQUAMOUS 0 SEEN Normal 5- [facility] Comment on above: Order Comment: CLEAN CATCH Performed By: #### L 100.0100, L500.2500, L501.5200 #### [facility] [address] [place], [address] Mucus Ql (Urine sed) 0 SEEN Normal [facility] Comment on above: Order Comment: CLEAN CATCH Performed By: #### L 100.0100, L500.2500, L501.5200 #### [facility] [address] [place], [address] RBC 0 SEEN Normal 0-[address] [facility] Comment on above: Order Comment: CLEAN CATCH Performed By: #### L 100.0100, L500.2500, L501.5200 #### [facility] [address] [place], [address] WBC 0 SEEN Normal 0-[address] [facility] Comment on above: Order Comment: CLEAN CATCH Performed By: #### L 100.0100, L500.2500, L501.5200 #### [facility] [address] [place], [address] ECHOon 05-10-2024 Echocardiography Echocardiography Report: [facility] Date of service: 05/10/2024 1:20:53 PM ANALYST Ordering physician: IVORY ESPINOZA Indication: Palpitations Technologist: Sushma Fink [facility] Interpreting physician: Marlen Hamilton MD PATIENT: Name: ISA TOVAR : 1970 Age: 53 years Gender: F Primary rhythm: sinus. Height: 170.20 cm BSA: 1.84 m Weight: 71.50 kg BMI: 24.7 kg/m Heart rate 80 bpm Blood pressure 171/95 mmHg Color Doppler was utilized to interrogate the cardiac valves assessed and spectral Doppler was utilized to determine the flow velocities and pressure gradients reported in this exam. Myocardial strain analysis was performed in this exam to aid in the assessment of cardiac function. MEASUREMENTS: Value Indexed Normal Max aortic dimension 2.8 cm Ao < 3.8 Left atrial volume 41 ml (biplane A-L) 22 ml/m Naren <= 34 LV ID (diastole) 4.1 cm (2D) 2.24 cm/m LV ID (systole) 2.8 cm (2D) 1.54 cm/m IVS, leaflet tips 0.8 cm (2D) Posterior wall thickness 1.1 cm (2D) Left ventricular mass 124 g (2D) 68 g/m Global peak long strain -17.6 % LV stroke volume 59 ml (2D biplane) LV end diastolic volume 103 ml (2D biplane) 56.0 ml/m 29<=EDVi<62 LV end systolic volume 44 ml (2D biplane) 23.7 ml/m Ejection Fraction 58 % (2D biplane) EF > 54 FINDINGS: LEFT VENTRICLE The left ventricle is normal in size. Left ventricular systolic function is normal. Global LV myocardial strain is normal. Normal left ventricular diastolic function. Mitral annular lateral E/e': 13.0. Mitral annular septal E/e': 13.0. Wall Motion: All scored segments are normal. RIGHT VENTRICLE The right ventricle is normal in size. Right ventricular systolic function is normal. RV systolic tissue Doppler velocity is 15.0 cm/s. Tricuspid annular displacement is 2.0 cm. Estimated right atrial pressure is 3 mmHg (although IVC not seen). LEFT ATRIUM The left atrial cavity is normal in size. Pulmonary Veins: The pulmonary venous pattern showed normal systolic flow. RIGHT ATRIUM The right atrial cavity is normal in size. Inferior Vena Cava: The inferior vena cava appears normal measuring 1.1 cm. MITRAL VALVE The mitral valve leaflets are structurally normal. There is trace (trace - 1+) mitral valve regurgitation. The pressure half time is 64 msec. The peak mitral E/A ratio is 1.22. The average mitral E/e' ratio is 13.0. The mitral flow deceleration time is 219 msec. TRICUSPID VALVE The tricuspid valve leaflets are structurally normal. There is no tricuspid valve regurgitation. AORTIC VALVE The aortic valve cusps are structurally normal. There is no aortic valve regurgitation. The peak gradient is 8 mmHg (peak velocity = 142.5 cm/s). PULMONIC VALVE The pulmonic valve cusps are structurally normal. There is no pulmonic valve regurgitation. AORTA The visualized aorta is normal in size. Measurements - Mid ascending aorta 2.8 cm. PERICARDIUM There is no pericardial effusion. There is an epicardial fat pad. CONCLUSIONS: - Exam indication: Palpitations - The left ventricle is normal in size. Left ventricular systolic function is normal. EF = 58 5% (2D biplane) Normal left ventricular diastolic function. - The right ventricle is normal in size. Right ventricular systolic function is normal. - The patient has not had a prior CC echocardiographic exam for comparison. * * * Final * * * CC [employer] : [id number] Normal [facility] CNOVon 05-05-2024 CNOV Office Visit (MOLIN[place]LEVE ) ISA TOVAR ([id number]) 1970 F Date Time Provider Department 05/05/24 3:20 PM IVORY ESPINOZA During your visit today, we recorded the following information about you: Pulse Respiration Blood pressure Weight 72/minute 16/minute 146/90 71.5 kg Ivory Espinoza APRN.CNP 05/05/2024 6:17 PM Signed Chief Complaint Patient presents with: BP Check HPI Isa Tovar is a 53 year old female who presents here today for Above Complaints. Has appt with [facility] with [facility] next Friday for her left radial head fracture. When typing has pain shooting both down and up her arm. Hand never swelled. Did swell around her elbow. BP-has been elevated. Has been occasionally checking it at home highest 211/101. Does have family hx of HTN-mother, father, sister. Has never been treated for HTN in the past. Denies CP, SOB. Feels like sometimes she can just feel her heart. +headaches. No vision changes. Denies recent illness. Past medical history, appointments, medications, allergies reviewed. Previous Medical History PAST MEDICAL HISTORY Diagnosis Date Depression Previous Surgical History PAST SURGICAL HISTORY Procedure Laterality Date COLONOSCOPY SCREENING 08/16/2022 repeat in 5 years, poor bowel prep EXCISION GANGLION WRIST DORSAL/VOLAR PRIMARY Right 08/30/2022 Excision ganglion cyst right wrist and open palmar fasciectomy HAND SURGERY HX Right Dr. Dougherty TONSILLECTOMY PRIMARY/SECONDARY Tonsillectomy VAGINAL HYSTERECTOMY UTERUS 250 GM/< 07/21/2008 Hysterectomy, vaginal Family History FAMILY HISTORY Problem Relation Age of Onset Hypertension Mother Hypertension Father Hypertension Maternal Grandmother Heart Maternal Grandmother Hypertension Sister Heart Brother congenital valve dx, valve replacement/repair Patient Allergies ALLERGIES No Known Allergies Current Medications Current Outpatient Medications on File Prior to Visit Medication Sig FLUoxetine (PROZAC) 40 mg capsule Take 1 capsule by mouth once daily. multivitamin tablet Take 1 tablet by mouth once daily. famotidine (PEPCID) 20 mg tablet Take 1 tablet by mouth at bedtime as needed. Eromlct-Kdiarmgqy-Eysc tab Take by mouth. No current facility-administered medications on file prior to visit. Social History Social History Tobacco Use Smoking status: Former Current packs/day: 0.00 Types: Cigarettes Start date: 03/04/1985 Quit date: 03/04/1995 Years since quittin.1 Smokeless tobacco: Never Vaping Use Vaping status: Never Used Substance Use Topics Alcohol use: Yes Comment: occasionally Drug use: No Review of Symptoms REVIEW OF SYSTEMS See HPI, otherwise negative EXAM: BP 162/90 (BP Site: Left Arm, BP Position: Sitting, BP Cuff Size: Regular Adult) Pulse 72 Resp 16 Wt 71.5 kg (157 lb 10.1 oz) SpO2 100% BMI 24.69 kg/m? General Appearance: Well appearing, alert, in no acute distress, well-hydrated, well nourished.. Neck: Supple, no adenopathy; thyroid symmetric, normal size, no bruits. Lungs: Lungs clear to auscultation. No wheezing, rhonchi, rales.. Heart: RRR without murmur, gallop, or rubs. No ectopy. Extremities: No deformities, edema, skin discoloration, clubbing or cyanosis. Good capillary refill. Weak left hand grasp, limited movement of extremity, brace in place over elbow to lower upper arm and upper lower arm. No swelling or bruising noted. Musculoskeletal: No deformities, edema, skin discoloration, clubbing or cyanosis. Good capillary refill. Weak left hand grasp, limited movement of extremity, brace in place over elbow to lower upper arm and upper lower arm. No swelling or bruising noted.. Peripheral Pulses: Normal. Neurologic: Gait normal. Reflexes normal and symmetric. Sensation grossly intact.. Lymph Nodes: No cervical lymphadenopathy and No supraclavicular lymphadenopathy. Psychiatric: pleasant, cooperative. Health Maintenance List Anxiety Screening Never done Mammogram Screening due on 08/23/2023 Influenza Vaccine(1) due on 03/21/2024 Covid-19 Vaccine() Never done Shingrix Vaccine(1 of 2) due on 08/01/2024 Diabetes Screening due on 08/01/2026 Colorectal Cancer Screening due on 08/16/2027 Lipid Screening due on 08/01/2028 DTaP,Tdap,Td Vaccine(2 - Td or Tdap) due on 03/21/2032 Hepatitis B Vaccine Discontinued Cervical Cancer Screening Discontinued Hepatitis C Screening Discontinued HIV Screening Discontinued Data reviewed Previous records, office notes ASSESSMENT/PLAN: 1. Closed nondisplaced fracture of head of left radius with routine healing, subsequent encounter - ICD9: V54.12, ICD10: S52.125D (primary diagnosis) RICE Ok to continue brace, use sling prn Is seeing [facility] next week 05/12. Will see if they can possibly see her any sooner d (more content not included)... Normal [facility] [id number] 05-05-2024 ECG01 Ventricular Rate : 6 3 BPM Atrial Rate : 63 BPM P-R Interval : 142 ms QRS Duration : 80 ms Q-T Interval : 434 ms QTC Calculation(Bazett) : 444 ms Calculated P [place] : 22 degrees Calculated R [place] : 66 degrees Calculated T [place] : 54 degrees NORMAL SINUS RHYTHM NORMAL ECG Confirmed by MD HCENG GREGORY () on 05/06/2024 8:33:31 AM NAME : ISA TOVAR PID : [id number] : 1970 Gender : Female Race : ORD : Procedure Date : May 05 2024 16:13:32 Edit Date : May 06 2024 08:33:34 Diagnosis: NORMAL SINUS RHYTHM NORMAL ECG Confirmed by MD CHENG GREGORY () on 05/06/2024 8:33:31 AM Test Reason : Location : 185 : [facility] Overread By : MD CHENG GREGORY Edited By : MD CHENG GREGORY Referred By : Alexis, Acquired by : Calin daily [facility] XR CHEST 2V FRONTAL/LATon XR CHEST 2V FRONTAL/LAT * * *Final Repor t* * * DATE OF EXAM: May 05 2024 5:01PM WOX [id number] - XR CHEST 2V FRONTAL/LAT / PROCEDURE REASON: Primary hypertension * * * * Physician Interpretation * * * * EXAMINATION: CHEST RADIOGRAPH (2 VIEW FRONTAL and LATERAL) CLINICAL HISTORY: Primary hypertension MQ: XC2_6 EXAM DATE/TIME: 05/05/2024 5:01 PM COMPARISON: Chest x-ray on 10/22/2022 RESULT: Lines, tubes, and devices: None. Lungs and pleura: No consolidation. No lung mass. No pleural effusion. No pneumothorax. Cardiomediastinal silhouette: Normal cardiomediastinal silhouette. Bones and soft tissues: Unremarkable. IMPRESSION: No acute radiographic abnormality. Plug Wirer: [id number] Transcribe Date/Time: May 05 2024 5:14P Dictated by : KEARA LION MD This examination was interpreted and the report reviewed and electronically signed by: KEARA LION MD on May 05 2024 5:15PM EST [id number] Normal [facility] XR Chest PA and Lateralon IMPRESSION: No acute radiographic abnormality. Plug Wirer: Dennoo Transcribe Date/Time: May 05 2024 5:14P Dictated by : KEARA LION MD This examination was interpreted and the report reviewed and electronically signed by: KEARA LION MD on May 05 2024 5:15PM EST DIVISION OF RADIOLOGY * * *Final Report* * * DATE OF EXAM: May 05 2024 5:01PM WOX [id number] - XR CHEST 2V FRONTAL/LAT / PROCEDURE REASON: Primary hypertension * * * * Physician Interpretation * * * * EXAMINATION: CHEST RADIOGRAPH (2 VIEW FRONTAL & LATERAL) CLINICAL HISTORY: Primary hypertension MQ: XC2_6 EXAM DATE/TIME: 05/05/2024 5:01 PM COMPARISON: Chest x-ray on 10/22/2022 RESULT: Lines, tubes, and devices: None. Lungs and pleura: No consolidation. No lung mass. No pleural effusion. No pneumothorax. Cardiomediastinal silhouette: Normal cardiomediastinal silhouette. Bones and soft tissues: Unremarkable. DIVISION OF RADIOLOGY Provider, Lorie Casiano - 05/05/2024 * * *Final Report* * * DATE OF EXAM: May 05 2024 5:01PM WOX [id number] - XR CHEST 2V FRONTAL/LAT / PROCEDURE REASON: Primary hypertension * * * * Physician Interpretation * * * * EXAMINATION: CHEST RADIOGRAPH (2 VIEW FRONTAL & LATERAL) CLINICAL HISTORY: Primary hypertension MQ: XC2_6 EXAM DATE/TIME: 05/05/2024 5:01 PM COMPARISON: Chest x-ray on 10/22/2022 RESULT: Lines, tubes, and devices: None. Lungs and pleura: No consolidation. No lung mass. No pleural effusion. No pneumothorax. Cardiomediastinal silhouette: Normal cardiomediastinal silhouette. Bones and soft tissues: Unremarkable. IMPRESSION IMPRESSION: No acute radiographic abnormality. Plug Wirer: FAISAL Transcribe Date/Time: May 05 2024 5:14P Dictated by : KEARA LION MD This examination was interpreted and the report reviewed and electronically signed by: KEARA LION MD on May 05 2024 5:15PM [facility] Radiology Study observation (narrative) Jenae lee [facility] XR Chest PA and LateralOrder ed By: Cc Provider on 05-05-2024 [facility] 05-03-2024 [place] Telephone (FAMPWS) ISA TOVAR ([id number]) 1970 F Date Time Provider Department 05/03/24 GENOVEVA CARRERA During your visit today, we recorded the following information about you: Genoveva Carrera PA-C 05/03/2024 11:28 AM Signed Let patient know that her xray shows wrist fracture. Will place consult to ortho. Is she in a sling currently? Or does she have access to one? She can use one for comfort until she sees ortho. SALINA Crockett [place], [place] 05/04/2024 2:36 PM Signed Pt informed. Reports she can get a sling. Please schedule with ORTHO STAT. MINDI Mantilla [place], MA 05/04/2024 4:20 PM Signed Pt ok to see [facility]. Faxed consult. MINDI Mantilla Rebekah, APRN.LAQUITA 05/05/2024 6:17 PM Signed She is seeing [facility] on 05/12. Can we see if she can possibly be seen sooner d/t the fracture of her arm? Ivory Espinoza APRN.Bernadette Langley MA 05/06/2024 8:19 AM Signed Nurse at [facility] today at noon. She will contact patient. MINDI Mantilla Rebekah, APRN.LAQUITA 05/06/2024 8:27 AM Signed Jonh, thank you. Ivory Espinoza APRN.SCREEN PRINTER HELPER Allergies As of Date: 05/03/2024 (No Known Allergies) Date Reviewed: 04/27/2024 Reviewed by: Lolly Miranda MA - Fully Assessed Reason for Visit: Results [95] Primary Visit Diagnosis:Closed nondisplaced fracture of head of left radius, initial encounter [S52.125A] Order(s):CONSULT TO ORTHOPAEDICS [9086] Order #: [id number]: 1 FUTURE Prescriptions as of 05/06/2024 - lisinopril (ZESTRIL) 5 mg tablet Take 1 tablet by mouth once daily. - FLUoxetine (PROZAC) 40 mg capsule Take 1 capsule by mouth once daily. - multivitamin tablet Take 1 tablet by mouth once daily. - famotidine (PEPCID) 20 mg tablet Take 1 tablet by mouth at bedtime as needed. - Quoiieb-Wraxeahlw-Jppn tab Take by mouth. Problem List As Of Date 05/03/2024 Noted Resolved Dysthymia [F34.1] 08/23/2015 Well adult exam [Z00.00] 08/23/2015 Acid reflux [K21.9] 08/20/2022 Encounter Status:Closed by BERNADETTE DAILY on 05/04/24 [facility] CNOVon 04-27-2024 CNOV Office Visit (FAMPWS ) ISA TOVAR ([id number]) 1970 F Date Time Provider Department 04/27/24 4:20 PM RONNY GOODMAN During your visit today, we recorded the following information about you: Pulse Respiration Blood pressure Weight 68/minute 14/minute 181/97 70.3 kg Ronny Goodman APRN.[facility] 04/27/2024 4:29 PM Signed Chief Complaint Patient presents with: Arm Pain HPI Isa Tovar is a 53 year old female who presents here today for Above Complaints.. Patient presents for left arm pain after falling on vacation about a week ago. Reports continued pain from wrist extending through elbow to upper arm. Patient has not been seen for injury previously. Denies N/T. Patient reports increased pain since returning to work as she is left handed. Pain also reported with push pull. Past medical history, appointments, medications, allergies reviewed. Previous Medical History PAST MEDICAL HISTORY Diagnosis Date Depression Previous Surgical History PAST SURGICAL HISTORY Procedure Laterality Date COLONOSCOPY SCREENING 08/16/2022 repeat in 5 years, poor bowel prep EXCISION GANGLION WRIST DORSAL/VOLAR PRIMARY Right 08/30/2022 Excision ganglion cyst right wrist and open palmar fasciectomy HAND SURGERY HX Right Dr. Dougherty TONSILLECTOMY PRIMARY/SECONDARY Tonsillectomy VAGINAL HYSTERECTOMY UTERUS 250 GM/< 07/21/2008 Hysterectomy, vaginal Family History FAMILY HISTORY Problem Relation Age of Onset Hypertension Mother Hypertension Father Hypertension Maternal Grandmother Heart Maternal Grandmother Hypertension Sister Heart Brother congenital valve dx, valve replacement/repair Patient Allergies ALLERGIES No Known Allergies Current Medications Current Outpatient Medications on File Prior to Visit Medication Sig FLUoxetine (PROZAC) 40 mg capsule Take 1 capsule by mouth once daily. multivitamin tablet Take 1 tablet by mouth once daily. famotidine (PEPCID) 20 mg tablet Take 1 tablet by mouth at bedtime as needed. [place]-Qcotnqmkr-Dsxp tab Take by mouth. No current facility-administered medications on file prior to visit. Social History Social History Tobacco Use Smoking status: Former Current packs/day: 0.00 Types: Cigarettes Start date: 03/04/1985 Quit date: 03/04/1995 Years since quittin.1 Smokeless tobacco: Never Vaping Use Vaping status: Never Used Substance Use Topics Alcohol use: Yes Comment: occasionally Drug use: No Review of Symptoms REVIEW OF SYSTEMS SEE HPI EXAM: BP 194/100 Pulse 68 Resp 14 Wt 70.3 kg (155 lb) BMI 24.28 kg/m? General Appearance: Well appearing, alert, in no acute distress, well-hydrated, well nourished.. Extremities: Positive findings: joint location: on left elbow painful movement, loss of ROM, injury, and pain with rotation, full ROM with flexion and extension, on left wrist painful movement, stiffness, and injury. Health Maintenance List Anxiety Screening Never done Mammogram Screening due on 08/23/2023 Influenza Vaccine(1) due on 03/21/2024 Covid-19 Vaccine( season) Never done Shingrix Vaccine(1 of 2) due on 08/01/2024 Diabetes Screening due on 08/01/2026 Colorectal Cancer Screening due on 08/16/2027 Lipid Screening due on 08/01/2028 DTaP,Tdap,Td Vaccine(2 - Td or Tdap) due on 03/21/2032 Hepatitis B Vaccine Discontinued Cervical Cancer Screening Discontinued Hepatitis C Screening Discontinued HIV Screening Discontinued ASSESSMENT/PLAN: 1. Injury of left upper arm, initial encounter - ICD9: 959.2, ICD10: S49.92XA (primary diagnosis) - XR WRIST GENERAL 3V PA/LAT/OBL LEFT - XR ELBOW GENERAL 2V AP/LAT LEFT 2. Elevated BP without diagnosis of hypertension - ICD9: 796.2, ICD10: R03.0 Possibly secondary to pain from injury. - Recommended regular aerobic exercise. - Recommend home blood pressure monitoring, to bring results in on next visit - Goal of BP <130/80 Ronny Goodman APRN.SCREEN PRINTER HELPER Allergies As of Date: 04/27/2024 (No Known Allergies) Date Reviewed: 04/27/2024 Reviewed by: Lolly Miranda MA - Fully Assessed Reason for Visit: Arm Pain [137] Primary Visit Diagnosis:Injury of left upper arm, initial encounter [S49.92XA] Other Visit Diagnosis:Elevated BP without diagnosis of hypertension [R03.0] Order(s):XR WRIST GENERAL 3V PA/LAT/OBL LEFT [[id number]] Order #: [id number] FUTURE XR ELBOW GENERAL 2V AP/LAT LEFT [[id number]] Order #: [id number] FUTURE Prescriptions as of 04/27/2024 - FLUoxetine (PROZAC) 40 mg capsule Take 1 capsule by mouth once daily. - multivitamin tablet Take 1 tablet by mouth once daily. - famotidine (PEPCID) 20 mg tablet Take 1 tablet by mouth at bedtime as needed. - Eimhnse-Ayqzzwkko-Yduv tab Take by mouth. Problem List As Of Date 04/27/2024 Noted Resolved Dysthymia [F34.1] 08/23/2015 Well adult exam [Z00.00 (more content not included)... Normal [facility] XR ELBOW 2V AP/LAT LTon 10-0 XR ELBOW 2V AP/LAT LT * * *Final Report* * * DATE OF EXAM: Apr 27 2024 5:05PM WOX [id number] - XR ELBOW 2V AP/LAT LT / PROCEDURE REASON: Injury of left upper arm, initial encounter * * * * Physician Interpretation * * * * PROCEDURE: Left elbow and left wrist INDICATION: Injury of left upper arm, initial encounter .Left radial wrist and elbow pain following a fall x 2 weeks ago TECHNIQUE: XR WRIST 3V PA/LAT/OBL LT, XR ELBOW 2V AP/LAT LT COMPARISON: None FINDINGS: Left elbow: Nondisplaced fracture of the radial neck. Joint spaces are maintained. No evidence for significant joint effusion. Left wrist: No acute fracture or dislocation. Joint spaces are maintained. Soft tissues are unremarkable. IMPRESSION: Radial neck fracture Plug Wirer: [facility] Transcribe Date/Time: May 01 2024 8:14A Dictated by : KAYLEEN DAVIS MD This examination was interpreted and the report reviewed and electronically signed by: KAYLEEN DAVIS MD on May 01 2024 8:15AM EST [id number] Normal [facility] XR WRIST 3V PA/LAT/OBL LTon 04-27-2024 XR WRIST 3V PA/LAT/OBL LT * * *Final Report* * * DATE OF EXAM: Apr 27 2024 5:05PM WOX [id number] - XR WRIST 3V PA/LAT/OBL LT / PROCEDURE REASON: Injury of left upper arm, initial encounter * * * * Physician Interpretation * * * * PROCEDURE: Left elbow and left wrist INDICATION: Injury of left upper arm, initial encounter .Left radial wrist and elbow pain following a fall x 2 weeks ago TECHNIQUE: XR WRIST 3V PA/LAT/OBL LT, XR ELBOW 2V AP/LAT LT COMPARISON: None FINDINGS: Left elbow: Nondisplaced fracture of the radial neck. Joint spaces are maintained. No evidence for significant joint effusion. Left wrist: No acute fracture or dislocation. Joint spaces are maintained. Soft tissues are unremarkable. IMPRESSION: Radial neck fracture Plug Wirer: [facility] Transcribe Date/Time: May 01 2024 8:14A Dictated by : KAYLEEN DAVIS MD This examination was interpreted and the report reviewed and electronically signed by: KAYLEEN DAVIS MD on May 01 2024 8:15AM EST [id number] Normal [facility] XR Knee - bilateral 4 Viewso n 08-01-2023 IMPRESSION: Findings are suggestive of mild degenerative changes in the right knee. Plug Wirer: PSC Transcribe Date/Time: Aug 01 2023 10:23A Dictated by : KEARA LION MD This examination was interpreted and the report reviewed and electronically signed by: KEARA LION MD on Aug 01 2023 10:24AM EST DIVISION OF RADIOLOGY * * *Final Report* * * DATE OF EXAM: Aug 01 2023 10:05AM WOX [id number] - XR KNEE 4V AP/PA/LAT/MERCH RENETTA / PROCEDURE REASON: multiple diagnoses * * * * Physician Interpretation * * * * EXAM TITLE: XR KNEE 4V AP/PA/LAT/MERCH RENETTA EXAM DATE/TIME: 08/01/2023 10:05 AM COMPARISON: None. CLINICAL INDICATION/HISTORY: Chronic right knee pain. TECHNIQUE: AP/PA, lateral and sunrise views of the right knee are presented. FINDINGS: No acute fractures or subluxations are noted. Tiny marginal bony spur seen along the posterior aspect of the patella. The joint spaces are well preserved. There is no evidence of joint effusion. The mineralization of the bones is normal. There is no significant soft tissue swelling. DIVISION OF RADIOLOGY Provider, [facility] - 08/01/2023 * * *Final Report* * * DATE OF EXAM: Aug 01 2023 10:05AM WOX [id number] - XR KNEE 4V AP/PA/LAT/MERCH RENETTA / PROCEDURE REASON: multiple diagnoses * * * * Physician Interpretation * * * * EXAM TITLE: XR KNEE 4V AP/PA/LAT/MERCH RENETTA EXAM DATE/TIME: 08/01/2023 10:05 AM COMPARISON: None. CLINICAL INDICATION/HISTORY: Chronic right knee pain. TECHNIQUE: AP/PA, lateral and sunrise views of the right knee are presented. FINDINGS: No acute fractures or subluxations are noted. Tiny marginal bony spur seen along the posterior aspect of the patella. The joint spaces are well preserved. There is no evidence of joint effusion. The mineralization of the bones is normal. There is no significant soft tissue swelling. IMPRESSION IMPRESSION: Findings are suggestive of mild degenerative changes in the right knee. [facility]: [facility] Transcribe Date/Time: Aug 01 2023 10:23A Dictated by : KEARA LION MD This examination was interpreted and the report reviewed and electronically signed by: KEARA LION MD on Aug 01 2023 10:24AM EST [facility] Radiology Study observation (narrative) [facility] XR Knee - bilateral 4 ViewsO rdered By: Cc Provider on 08-01-2023 [facility] XR CHEST 2V FRONTAL/LATon [facility] XR Chest PA and Lateralon Radiology Study observation (narrative) [facility] IMPRESSION: Hazy opacities in the mid to lower left lung suspicious for pneumonia Plug Wirer: [facility] Transcribe Date/Time: Oct 22 2022 8:26A Dictated by : MALIA KEATING MD This examination was interpreted and the report reviewed and electronically signed by: MALIA KEATING MD on Oct 22 2022 8:28AM [facility] DIVISION OF RADIOLOGY * * *Final Report* * * DATE OF EXAM: Oct 22 2022 8:25AM WOX [id number] - XR CHEST 2V FRONTAL/LAT / PROCEDURE REASON: Acute cough * * * * Physician Interpretation * * * * EXAMINATION: CHEST RADIOGRAPH (2 VIEW FRONTAL & LATERAL) CLINICAL HISTORY: Acute cough MQ: XC2_6 EXAM DATE/TIME: 10/22/2022 8:25 AM COMPARISON: No relevant prior studies available. RESULT: Lines, tubes, and devices: None. Lungs and pleura: Multifocal hazy opacities in the mid to lower left lung. No pleural effusion or pneumothorax. Cardiomediastinal silhouette: Normal cardiomediastinal silhouette. Bones and soft tissues: Unremarkable. DIVISION OF RADIOLOGY Provider, [facility] - 10/22/2022 * * *Final Report* * * DATE OF EXAM: Oct 22 2022 8:25AM WOX 5291 - XR CHEST 2V FRONTAL/LAT / PROCEDURE REASON: Acute cough * * * * Physician Interpretation * * * * EXAMINATION: CHEST RADIOGRAPH (2 VIEW FRONTAL & LATERAL) CLINICAL HISTORY: Acute cough MQ: XC2_6 EXAM DATE/TIME: 10/22/2022 8:25 AM COMPARISON: No relevant prior studies available. RESULT: Lines, tubes, and devices: None. Lungs and pleura: Multifocal hazy opacities in the mid to lower left lung. No pleural effusion or pneumothorax. Cardiomediastinal silhouette: Normal cardiomediastinal silhouette. Bones and soft tissues: Unremarkable. IMPRESSION IMPRESSION: Hazy opacities in the mid to lower left lung suspicious for pneumonia Plug Wirer: [facility]ISAL Transcribe Date/Time: Oct 22 2022 8:26A Dictated by : MALIA KEATING MD This examination was interpreted and the report reviewed and electronically signed by: MALIA KEATING MD on Oct 22 2022 8:28AM [facility] XR Chest PA and LateralOrder ed By: Ccf Provider on 10-22-2022 [facility] ANES POSTPROC EVALon 023 ANES POSTPROC EVAL HNO ID: [id number] Author: Mitchell Martini MD Service: Anesthesiology Author Type: Anesthesiologist Type: Anesthesia Postprocedure Evaluation Filed: 08/30/2022 12:36 PM Note Text: POST ANESTHESIA EVALUATION NOTE : 1970 Procedure Summary Date: 08/30/22 Room / Location: [place] [address] / [place] OR Anesthesia Start: 1102 Anesthesia Stop: 1212 Procedures: EXCISION GANGLION WRIST (Right: Wrist) FASCIECTOMY, PALM ONLY, W/ OR W/O Z-PLASTY, OTHER LOCAL TISSUE REARRANGEMENT, OR SKIN GRAFTING (Right: Hand) Diagnosis: Ganglion of right wrist Dupuytren's contracture (Ganglion of right wrist [M67.431]) (Dupuytren's contracture [M72.0]) Surgeons: Tree Dougherty MD Responsible Provider: Mitchell Martini MD Anesthesia Type: MAC ASA Status: 2 Anesthesia Type: MAC Last Vitals Vitals Value Taken Time BP 175/79 08/30/22 1230 Temp 36.4 ?C (97.5 ?F) 08/30/22 1215 Pulse 52 08/30/22 1235 Resp 11 08/30/22 1235 SpO2 100 % 08/30/22 1235 Vitals shown include unvalidated device data. Post Anesthesia Patient Status Patient Evaluation: bedside. Anticipated Disposition: phase 2 then home. Neurological Status: aware and responsive. Pulmonary Status: breathing comfortably on room air Airway Control: returned to baseline unsupported. Cardiovascular Status: stable. Pain Management: clinically adequate Postoperative Hydration: acceptable. Intraoperative Events: no significant anesthesia events Post Operative Nausea/Vomiting Status: no significant post operative nausea or vomiting Recommendation: continue current plan of care. Anesthesia Observations No Documentation SIGNATURE: Mitchell Martini MD PATIENT NAME: Isa Tovar DATE: August 30, 2022 TIME: 12:36 PM CSN: [id number] [facility] ANES PRE-OPon 08-30-2022 ANES PRE-OP HNO ID: [id number] Author: Mitchell Martini MD Service: Anesthesiology Author Type: Anesthesiologist Type: Anesthesia Preprocedure Evaluation Filed: 08/30/2022 10:58 AM Note Text: ANESTHESIOLOGY DAY OF SURGERY NOTE : 1970 Procedure Information Date/Time: 08/30/22 1031 Procedures: EXCISION GANGLION WRIST (Right: Wrist) FASCIECTOMY, PALM ONLY, W/ OR W/O Z-PLASTY, OTHER LOCAL TISSUE REARRANGEMENT, OR SKIN GRAFTING (Right: Hand) Location: [facility] OR / [facility] OR Surgeons: Tree Dougherty MD Estimated body mass index is 23.49 kg/m? as calculated from the following: Height as of 08/20/22: 170.2 cm (5' 7). Weight as of 08/20/22: 68 kg (150 lb). Most recent hematocrit and potassium results: Hematocrit 39.7 06/28/2022 Potassium 3.9 06/28/2022 Relevant Problems GI (+) Acid reflux I - PHYSICAL EVALUATION AIRWAY Patient intubated: No. Tracheostomy tube not present Mallampati: I. TM distance: >3 FB. Neck ROM: full ROM without neurological symptoms. Mouth opening: adequate. Short neck: no. Thick neck: no DENTAL Normal dental observations. Dental findings: teeth intact. Additional exam findings: yes. CARDIOVASCULAR Normal cardiovascular observations. Rhythm: regular Rate: normal PULMONARY Normal pulmonary observations. Breath sounds clear to auscultation. ABDOMINAL Normal abdominal observations. Abdomen: soft. Bowel sounds: normal. II - ANESTHESIA PLAN ASA Score: 2 Anesthetic Plan: MAC The patient is not a current smoker. NPO Status: adequate Beta Yue Monitoring Plan Monitoring plan: standard ASA. Post Procedure Analgesic Plan Postoperative analgesic plan: parenteral or oral opioids and multimodal analgesia. Informed Consent Anesthetic risks, benefits, alternatives, personnel and consent discussed: yes. Patient / Responsible Libertarian agrees to proceed: yes Patient / Surrogate agrees to blood products: blood products not planned DNR status not reviewed with patient and/or family prior to surgery. Significant changes in the patient condition since the History and Physical, not otherwise documented in primary service progress note: no. Potential Anesthesia issues that may suggest increased risk of complications or contraindication to planned procedure: none. No vitals data found for the desired time range. Facility-Administered Medications as of 08/30/2022 Medication Dose Route Frequency - lidocaine (PF) 10 mg/mL (1 %) 1-2 mg injection (XYLOCAINE) 0.1-0.2 mL INTRADERMAL PRN - lactated ringers iv infusion 5-30 mL/hr INTRAVENOUS CONTINUOUS - NaCl 0.9% iv flush bag 20 mL INTRAVENOUS PRN - ceFAZolin iv piggyback 2 g in D5W (iso-osmotic) 100 mL (ANCEF) 2 g INTRAVENOUS Pre-Op Once Outpatient Medications as of 08/30/2022 Medication Sig - FLUoxetine (PROZAC) 40 mg capsule Take 1 capsule by mouth once daily. - famotidine (PEPCID) 20 mg tablet Take 1 tablet by mouth at bedtime as needed. - Fjcvrve-Qcnkvqqxg-Isyp tab Take by mouth. I have interviewed and examined the patient. I have reviewed the medical record and/or the pre-anesthesia evaluation, pertinent labs, and test results. This contains updated information obtained within 48 hours of Surgery/Procedure. SIGNATURE: Mitchell Martini MD PATIENT NAME: Isa Tovar DATE: August 30, 2022 TIME: 9:21 AM CSN: [id number] [facility] OPERATIVE NOon 08-30-2022 OPERATIVE NO HNO ID: [id number] Author: Tree Dougherty MD Service: Orthopaedic Surgery Author Type: Physician Type: Operative Report Filed: 09/04/2022 7:29 AM Note Text: OPERATIVE/PROCEDURE REPORT LOG ID: [id number] SURGERY/PROCEDURE DATE: 08/30/2022 INCISION/PROCEDURE START TIME: 11:17 AM INCISION CLOSE/PROCEDURE END TIME: 12:09 PM SURGEON(S)/PROCEDURALI ST(S) AND LOCKS INSPECTOR(S): Surgeon(s) and Role: * Tree Dougherty MD - Primary Physician Scout: Kathryn Alan PA-C SURGERY/PROCEDURE(S): Left wrist, excision of volar ganglion cyst. Left hand, open fasciectomy. ANESTHESIA: Monitored Anesthesia Care with local. SURGERY/PROCEDURE DETAILS: Pleasant 52-year-old female who on her left wrist had a quite uncomfortable soft tissue mass over any radial side of the wrist as well as a large Dupuytren thickening and cord resulting in a 40 degree contracture of the MCP joint. I discussed with her the risks, benefits, alternatives and potential complications involving both operative nonoperative care. She understood and wished to proceed surgery. On 08/30/2022, the patient was cleared identified in the preoperative area marked accordingly on the left wrist and hand by myself. She received 2 g of Ancef in the IV within 1 hour of incision or tourniquet. She is taken the operative suite and placed in supine position with an armboard on the left. Anesthesia secured the head neck for the me of the case and get a MAC anesthetic. Left upper extremity was then sterilely prepped and draped in standard fashion. An appropriate timeout was conducted and all in the room were in agreement, signed consent forms on the chart. Local anesthetic was provided for 2 cc at the wrist and 3 cc of the palm with 1% lidocaine with 1 200,000 epinephrine. I first started at the wrist, making a longitudinal incision directly over the soft tissue mass. I came down through the dermis and skin bleeders were cauterized with bipolar. I bluntly dissected down and there is an obvious ganglion off the radial side of the wrist coming likely from underneath the brachial radialis tendon. This was in intimate relation to the radial artery. I found the borders of the radial artery and bluntly dissected this off from the underlying ganglion. I freed some of the fascia off of the artery to make sure it had unrestricted pulsation. The ganglion was then excised and the small stalk coming from between the radius and the brachial radialis was cauterized. There was nice pulsation of the artery at the end of the this portion of the procedure. The wound was irrigated and we closed with a 4-0 Monocryl in a subcuticular weave with Steri-Strips. Moved to the palm. In the fourth ray there is a large and thickened fascial cord and I made a horizontal incision along the palmar crease just through the dermis. I then sharply dissected the dermal fascial adhesions and used small, double-pronged skin hooks to view both proximal and distal to the incision. I gently worked my way both with blunt and some sharp dissection along the fascial cord dissecting both radial and ulnar to it protecting the neurovascular bundles deeper to the cord. This pretendinous cord was then divided as proximally and the palmar wound as I could and once I was able to gain control of it I worked my way distally. Again, maintaining visualization and protection of the neurovascular bundles on either side I bluntly dissected this and then when sharp resection was required completed this on the fascial bands running deeper and with ramirez in the palm. I continued working on top of the tendon until the majority of the Dupuytren's cord was excised entirely. She was able to easily bring her MCP joint in full extension along with the palm. While I was there, I released the A1 cuong of the fourth digit. There was not any undue tension in the skin. Tourniquet was taken down and hemostasis was observed with bipolar. I was then able to close with horizontal mattress sutures without any tension. Xeroform gauze at both sites, skin glue on the radial side, sterile 4 x 4's and cotton padding with a Coban was used for final bandage. There were no complications during the procedures. Patient was safely awoken and transferred to postanesthetic care unit. PRE-OP/PRE-PROCEDURE DIAGNOSIS: 1. Left wrist, volar ganglion cyst. 2. Left hand, dupuytren's. POST-OP/POST-PROCEDURE DIAGNOSIS: Same as Preop ESTIMATED BLOOD LOSS: 10 mls SPECIMENS: none sent IMPLANTABLE DEVICES: NONE DRAINS: None COMPLICATIONS: None CLOSURE TECHNIQUE: Primary PARTICIPATION IN SURGERY/PROCEDURE: I/primary surgeon/proceduralist performed the procedure with assistance. No qualified resident/fellow was available. assistant county attorney was necessary for safe patient positioning, sterile prepping and draping. arm assistance, positioning and protection, soft tissue retraction, protection of vital structures and suture (more content not included)... Normal [facility] HISTORY PHYSICALon HISTORY PHYSICAL HNO ID: [id number] Author: Pearl Andrews PA-C Service: ? Author Type: Physician Scout Type: HANDP Filed: 08/20/2022 12:53 PM Note Text: PREANESTHESIA CONSULT CLINIC TELEHEALTH VISIT Patient has been identified by name and date of : Yes This is a virtual visit using Vidable video visit. It require patient-provider interaction for the medical decision making as documented below. Reason for contact: PACC visit Accompanied by: Self Scheduled Surgery: EXCISION GANGLION WRIST, FASCIECTOMY, PALM ONLY, W/ OR W/O Z-PLASTY, OTHER LOCAL TISSUE REARRANGEMENT, OR SKIN GRAFTING Subjective CHIEF COMPLAINT: Patient presents with: Anesthesia Consult HPI: Isa Tovar is a 52 year old LHD female presenting for pre-anesthesia consultation. Pt has history of cyst on right wrist and Dupuytren's contracture of right ring finger. 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 Pt reports that cyst has been present for 4 years but was not bothersome until recently. Pt reports she has aching pain now with working/typing. Above procedure recommended to manage symptoms. Procedure scheduled on 08/30/2022 at MD. ACTIVE PROBLEM LIST Dysthymia Well Adult Exam Acid Reflux PAST MEDICAL HISTORY Diagnosis Date Depression PAST SURGICAL HISTORY Procedure Laterality Date COLONOSCOPY SCREENING 07/2022 TONSILLECTOMY PRIMARY/SECONDARY Tonsillectomy VAGINAL HYSTERECTOMY UTERUS 250 GM/< 07/21/2008 Hysterectomy, vaginal FAMILY HISTORY Problem Relation Age of Onset Hypertension Mother Hypertension Father Hypertension Maternal Grandmother Heart Maternal Grandmother Hypertension Sister Heart Brother congenital valve dx, valve replacement/repair Social History Tobacco Use Smoking status: Former Years: 10. Types: Cigarettes Quit date: 03/04/1995 Years since quittin.4 Smokeless tobacco: Never Vaping Use Vaping Use: Never used Substance Use Topics Alcohol use: Yes Comment: occasionally - 4 drinks per week Drug use: No ALLERGIES No Known Allergies MEDICATIONS: Current Outpatient Medications Medication Sig FLUoxetine (PROZAC) 40 mg capsule Take 1 capsule by mouth once daily. famotidine (PEPCID) 20 mg tablet Take 1 tablet by mouth at bedtime as needed. Fdfbcru-Ysjcbuthb-Mugj tab Take by mouth. No current facility-administered medications for this visit. COVID VACCINATION STATUS: Not vaccinated, prior infection REVIEW OF SYSTEMS: General: No weight loss, malaise or fevers. Neuro: No history of TIA's, stroke, ENVIRONMENTAL TECHNOLOGY PROFESSOR tumor, impaired sensorium, hemiplegia, paraplegia or quadraplegia. No neurological symptoms or problems. Respiratory: +Former smoker - quit in 1994. Negative for Asthma, Bronchitis, COPD, Current cough, URI < 2 weeks, Wheezing Cardiovascular: No history of HTN requiring medication, no history of angina, CHF, SD, cardiac surgery or stents. Denies rest pain, gangrene or revascularization/ampu tation for PVD. No history of cardiovascular symptoms or problems. GI: +GERD Negative for Hepatitis, Liver disease, ETOH > 2 drinks / day : No history of dysuria, frequency or incontinence,, stones or chronic kidney disease Endocrine: No history of diabetes. Has not taken steroids within the past 30 days. No history of endocrinological symptoms or problems. Hematology: No history of bleeding or clotting disorder. Pt is not taking anti-coagulation or platelet medications. No history of hematological symptoms or problems. Oncology: No history of CA metastasis, chemo within 30 days, or radiotherapy within 90 days. Has not lost 10% of body wt in 6 months. No history of oncological symptoms or problems. Psych: +Depression Musculoskeletal: See HPI Skin: Negative for lesions, rash and itching. Objective PHYSICAL EXAM: Ht 5' 7 (1.70m) Wt 150 lb (68.0kg) BMI 23.49 kg/(m2). VIDEO EXAM: (if completed, performed via video enabled technology) GENERAL: alert and appropriate, in no distress, well-hydrated, well nourished, and happy, smiling, interactive SKIN: no rash noted HEAD: normocephalic, no abnormality or lesion noted EYES: no injection, visual acuity is grossly normal, and wearing glasses. NOSE: external nose normal without rhinorrhea OROPHARYNX: moist mucus membranes NECK: full ROM, no cervical LNs noted RESPIRATORY: breathing non-labored CHEST: equal chest rise with normal respiratory effort HEART: Patient palpated radial pulses, pulse regular when counted aloud by patient. NEUROLOGIC: no obvious deficit Diagnostic tests reviewed for today's visit: Lab Value Units Date High Low HB 13.1 g/dL 06/28/2022 15.5 11.5 HCT 39.7 % 06/28/2022 46.0 36.0 WBC 4.12 k/uL 06/28/2022 11.00 3.70 PLT 291 k/uL 06/28/2022 400 150 NA 132 mmol/L 06/28/2022 144 136 K 3.9 mmol/L 06/28/2022 5.1 3.7 GLUC 81 mg/dL 06/28/2022 99 74 BUN 9 mg/dL 06/28/2022 21 7 CREAT 0.72 mg/dL 06/28/2022 (more content not included)... Normal [facility] LIPID PANEL (EXTERNAL)on Cholesterol [Mass/Vol] 185 mg/dL 0 - 2 00 MG/DL [facility] HDC-L 78 mg/dL Abnormal 41 mg/dL [facility] LDL Chol, calculated 96 MG/DL 130 MG/DL [facility] Triglyceride [Mass/Vol] 59 mg/dL 149 mg/dL [facility] Vital Signs Date Time Vital Sign Value Performing Clinician Facility 10-14-2024 12:44-0400 Body mass index (BMI) [Ratio] 23.74 kg/m2 Izalv Simms FEED RESEARCH AIDE.SCREEN PRINTER HELPER Work Phone: [facility] 10-14-2024 12:44-0400 Body weight 68.77 kg Izalv Simms FEED RESEARCH AIDE.SCREEN PRINTER HELPER Work Phone: [facility] 10-14-2024 12:44-0400 Diastolic blood pressure 78 mm[Hg] Izarina Simms FEED RESEARCH AIDE.SCREEN PRINTER HELPER Work Phone: [facility] 10-14-2024 12:44-0400 Heart rate 67 /min Izalv Simms FEED RESEARCH AIDE.SCREEN PRINTER HELPER Work Phone: [facility] 10-14-2024 12:44-0400 SaO2% (BldA) [Mass fraction] 98 % Izalv Simms FEED RESEARCH AIDE.SCREEN PRINTER HELPER Work Phone: [facility] 10-14-2024 12:44-0400 Systolic blood pressure 124 mm[Hg] Izarina Simms FEED RESEARCH AIDE.SCREEN PRINTER HELPER Work Phone: [facility] 10-09-2024 11:32-0400 Diastolic blood pressure 56 mm[Hg] Dr. Brandon Monet DO Work Phone: [facility] 10-09-2024 11:32-0400 Systolic blood pressure 102 mm[Hg] Dr. Brandon Monet DO Work Phone: [facility] 10-09-2024 09:30-0400 Body temperature 97.3 [degF] Dr. Brandon Monet DO Work Phone: [facility] 10-09-2024 09:30-0400 Heart rate 78 /min Dr. Brandon Monet DO Work Phone: [facility] 10-09-2024 09:30-0400 Respiratory rate 18 /min Dr. Brandon Monet DO Work Phone: 0(034)248-661775 [place] [address] 10-09-2024 09:30-0400 SaO2% (BldA) [Mass fraction] 96 % Dr. Brandon Monet DO Work Phone: 7(130)744-860775 [place] [address] 10-09-2024 08:31-0400 Body height 170.[address] Brandon Monet DO Work Phone: 8(199)893-856775 [place] [address] 10-09-2024 08:31-0400 Body weight 67.[address] Brandon Monet DO Work Phone: 7(780)824-587475 [place] [address] 10-08-2024 15:58-0400 Body mass index (BMI) [Ratio] 23.3 kg/m2 Dr. Brandon Monet DO Work Phone: 7(997)717-216375 [place] [address] 10-08-2024 15:18-0400 Body temperature 98.2 [degF] Dr. Brandon Monet DO Work Phone: 9(816)635-126475 [place] [address] 10-08-2024 15:18-0400 Diastolic blood pressure 81 mm[Hg] Dr. Brandon Monet DO Work Phone: 4(597)304-834775 [place] [address] 10-08-2024 15:18-0400 Heart rate 76 /min Dr. Brandon Monet DO Work Phone: 6(779)601-329275 [place] [address] 10-08-2024 15:18-0400 Respiratory rate 16 /min Dr. Brandon Monet DO Work Phone: 5(321)811-998775 [place] [address] 10-08-2024 15:18-0400 SaO2% (BldA) [Mass fraction] 100 % Dr. Brandon Monet DO Work Phone: 7(914)209-752175 [place] [address] 10-08-2024 15:18-0400 Systolic blood pressure 161 mm[Hg] Dr. Brandon Monet DO Work Phone: 0(958)853-254875 [place] [address] 10-08-2024 12:43-0400 Body height 170.[address] Brandon Monet DO Work Phone: 3(362)936-358775 [place] [address] 10-08-2024 12:43-0400 Body mass index (BMI) [Ratio] 23.4 kg/m2 Dr. Brandon Monet DO Work Phone: [facility] 10-08-2024 12:43-0400 Body weight 67.[address] Brandon Monet DO Work Phone: [facility] 09-28-2024 14:45-0400 Body mass index (BMI) [Ratio] 23.68 kg/m2 Dylan Bogner PA-C Work Phone: [facility] 09-28-2024 14:45-0400 Body temperature 98.49 [degF] Dylan Bogner PA-C Work Phone: [facility] 09-28-2024 14:45-0400 Body weight 68.58 kg Dylan Bogner PA-C Work Phone: [facility] 09-28-2024 14:45-0400 Diastolic blood pressure 93 mm[Hg] Dylan Bogner PA-C Work Phone: [facility] 09-28-2024 14:45-0400 Heart rate 69 /min Dylan Bogner PA-C Work Phone: [facility] 09-28-2024 14:45-0400 Respiratory rate 16 /min Dylan Bogner PA-C Work Phone: [facility] 09-28-2024 14:45-0400 SaO2% (BldA) [Mass fraction] 100 % Dylan Bogner PA-C Work Phone: [facility] 09-28-2024 14:45-0400 Systolic blood pressure 177 mm[Hg] Dylan Bogner PA-C Work Phone: [facility] 08-31-2024 13:22-0500 Body mass index (BMI) [Ratio] 24.87 kg/m2 Ivory Espinoza APRN.SCREEN PRINTER HELPER Work Phone: [facility] 08-31-2024 13:22-0500 Body weight 72.03 kg Ivory Espinoza APRN.SCREEN PRINTER HELPER Work Phone: [facility] 08-31-2024 13:22-0500 Diastolic blood pressure 90 mm[Hg] Ivory Alexis FEED RESEARCH AIDE.SCREEN PRINTER HELPER Work Phone: [facility] Comment on above: bp wilfredo average 08-31-2024 13:22-0500 Heart rate 72 /min Ivory Alexis FEED RESEARCH AIDE.SCREEN PRINTER HELPER Work Phone: [facility] 08-31-2024 13:22-0500 Respiratory rate 14 /min Ivory Alexis FEED RESEARCH AIDE.SCREEN PRINTER HELPER Work Phone: [facility] 08-31-2024 13:22-0500 SaO2% (BldA) [Mass fraction] 98 % Ivory Alexis FEED RESEARCH AIDE.SCREEN PRINTER HELPER Work Phone: [facility] 08-31-2024 13:22-0500 Systolic blood pressure 172 mm[Hg] Ivory Alexis FEED RESEARCH AIDE.SCREEN PRINTER HELPER Work Phone: [facility] Comment on above: bp wilfredo average 08-13-2024 13:03-0500 Body mass index (BMI) [Ratio] 24.78 kg/m2 Iza Simms FEED RESEARCH AIDE.SCREEN PRINTER HELPER Work Phone: [facility] 08-13-2024 13:03-0500 Body weight 71.76 kg Iza Simms FEED RESEARCH AIDE.SCREEN PRINTER HELPER Work Phone: [facility] 08-13-2024 13:03-0500 Diastolic blood pressure 84 mm[Hg] Iza Simms FEED RESEARCH AIDE.SCREEN PRINTER HELPER Work Phone: [facility] 08-13-2024 13:03-0500 Heart rate 67 /min Iza Simms FEED RESEARCH AIDE.SCREEN PRINTER HELPER Work Phone: [facility] 08-13-2024 13:03-0500 Respiratory rate 14 /min Iza Simms FEED RESEARCH AIDE.SCREEN PRINTER HELPER Work Phone: [facility] 08-13-2024 13:03-0500 SaO2% (BldA) [Mass fraction] 96 % Iza Simms FEED RESEARCH AIDE.SCREEN PRINTER HELPER Work Phone: 8(219)217-989692 [place] [address] 08-13-2024 13:03-0500 Systolic blood pressure 162 mm[Hg] Iza Simms APRN.SCREEN PRINTER HELPER Work Phone: [facility] 08-07-2024 19:33-0500 Diastolic blood pressure 85 mm[Hg] Dr. Brandon Monet DO Work Phone: 6(777)576-678912 [place] [address] 08-07-2024 19:33-0500 Systolic blood pressure 154 mm[Hg] Dr. Brandon Monet DO Work Phone: 5(881)680-451912 [place] [address] 08-07-2024 17:39-0500 Body mass index (BMI) [Ratio] 24.5 kg/m2 Dr. Brandon Monet DO Work Phone: 6(095)993-001575 [place] [address] 08-07-2024 17:39-0500 Body temperature 97.1 [degF] Dr. Brandon Monet DO Work Phone: 5(262)820-027275 [place] [address] 08-07-2024 17:39-0500 Body weight 71.[address] Brandon Monet DO Work Phone: 1(765)428-646575 [place] [address] 08-07-2024 17:39-0500 Heart rate 69 /min Dr. Brandon Monet DO Work Phone: 6(367)455-841175 [place] [address] 08-07-2024 17:39-0500 Respiratory rate 16 /min Dr. Brandon Monet DO Work Phone: 4(180)850-924012 [place] [address] 08-07-2024 17:39-0500 SaO2% (BldA) [Mass fraction] 97 % Dr. Brandon Monet DO Work Phone: [facility] 07-29-2024 11:59-0500 Body mass index (BMI) [Ratio] 24.46 kg/m2 Ivory Espinoza APRN.SCREEN PRINTER HELPER Work Phone: [facility] 07-29-2024 11:59-0500 Body weight 70.85 kg Ivory Espinoza APRN.SCREEN PRINTER HELPER Work Phone: [facility] 07-29-2024 11:59-0500 Diastolic blood pressure 88 mm[Hg] Ivory Alexis FEED RESEARCH AIDE.SCREEN PRINTER HELPER Work Phone: [facility] 07-29-2024 11:59-0500 Heart rate 61 /min Ivory Alexis FEED RESEARCH AIDE.SCREEN PRINTER HELPER Work Phone: [facility] 07-29-2024 11:59-0500 SaO2% (BldA) [Mass fraction] 100 % Ivory Alexis FEED RESEARCH AIDE.SCREEN PRINTER HELPER Work Phone: [facility] 07-29-2024 11:59-0500 Systolic blood pressure 154 mm[Hg] Ivory Alexis FEED RESEARCH AIDE.SCREEN PRINTER HELPER Work Phone: [facility] 07-01-2024 13:48-0500 Diastolic blood pressure 88 mm[Hg] Ivory Alexis FEED RESEARCH AIDE.SCREEN PRINTER HELPER Work Phone: [facility] Comment on above: recheck bp 07-01-2024 13:48-0500 Systolic blood pressure 144 mm[Hg] Ivory Alexis FEED RESEARCH AIDE.SCREEN PRINTER HELPER Work Phone: [facility] Comment on above: recheck bp 07-01-2024 12:45-0500 Body mass index (BMI) [Ratio] 24.81 kg/m2 Ivory Alexis FEED RESEARCH AIDE.SCREEN PRINTER HELPER Work Phone: [facility] 07-01-2024 12:45-0500 Body weight 71.85 kg Ivory Alexis FEED RESEARCH AIDE.SCREEN PRINTER HELPER Work Phone: [facility] 07-01-2024 12:45-0500 Heart rate 65 /min Ivory Alexis FEED RESEARCH AIDE.SCREEN PRINTER HELPER Work Phone: [facility] 07-01-2024 12:45-0500 Respiratory rate 14 /min Ivory Alexis FEED RESEARCH AIDE.SCREEN PRINTER HELPER Work Phone: [facility] 07-01-2024 12:45-0500 SaO2% (BldA) [Mass fraction] 100 % Ivory Alexis FEED RESEARCH AIDE.SCREEN PRINTER HELPER Work Phone: [facility] 06-02-2024 16:03-0500 Diastolic blood pressure 96 mm[Hg] Ivory Alexis FEED RESEARCH AIDE.SCREEN PRINTER HELPER Work Phone: [facility] Comment on above: bp Wilfredo average 06-02-2024 16:03-0500 Systolic blood pressure 163 mm[Hg] Ivory Alexis FEED RESEARCH AIDE.SCREEN PRINTER HELPER Work Phone: [facility] Comment on above: bp Wilfredo average 06-02-2024 15:33-0500 Body mass index (BMI) [Ratio] 24.17 kg/m2 Ivory Alexis FEED RESEARCH AIDE.SCREEN PRINTER HELPER Work Phone: [facility] 06-02-2024 15:33-0500 Body weight 70 kg Ivory Alexis FEED RESEARCH AIDE.SCREEN PRINTER HELPER Work Phone: [facility] 06-02-2024 15:33-0500 Heart rate 89 /min Ivory Alexis FEED RESEARCH AIDE.SCREEN PRINTER HELPER Work Phone: [facility] 06-02-2024 15:33-0500 Respiratory rate 16 /min Ivory Alexis FEED RESEARCH AIDE.SCREEN PRINTER HELPER Work Phone: [facility] 06-02-2024 15:33-0500 SaO2% (BldA) [Mass fraction] 99 % Ivory Alexis FEED RESEARCH AIDE.SCREEN PRINTER HELPER Work Phone: [facility] 05-05-2024 16:20-0400 Diastolic blood pressure 90 mm[Hg] Ivory Alexis FEED RESEARCH AIDE.SCREEN PRINTER HELPER Work Phone: [facility] 05-05-2024 16:20-0400 Systolic blood pressure 146 mm[Hg] Ivory Alexis FEED RESEARCH AIDE.SCREEN PRINTER HELPER Work Phone: [facility] 05-05-2024 15:23-0400 Body mass index (BMI) [Ratio] 24.69 kg/m2 Ivory Alexis FEED RESEARCH AIDE.SCREEN PRINTER HELPER Work Phone: [facility] 05-05-2024 15:23-0400 Body weight 71.5 kg Ivory Alexis FEED RESEARCH AIDE.SCREEN PRINTER HELPER Work Phone: [facility] 05-05-2024 15:23-0400 Heart rate 72 /min Ivory Espinoza FEED RESEARCH AIDE.SCREEN PRINTER HELPER Work Phone: [facility] 05-05-2024 15:23-0400 Respiratory rate 16 /min Ivory Espinoza FEED RESEARCH AIDE.SCREEN PRINTER HELPER Work Phone: [facility] 05-05-2024 15:23-0400 SaO2% (BldA) [Mass fraction] 100 % Ivory Espinoza FEED RESEARCH AIDE.SCREEN PRINTER HELPER Work Phone: [facility] 04-27-2024 16:27-0400 Diastolic blood pressure 97 mm[Hg] Ronny Goodman FEED RESEARCH AIDE.SCREEN PRINTER HELPER Work Phone: [facility] 04-27-2024 16:27-0400 Systolic blood pressure 181 mm[Hg] Ronny Goodman APRN.SCREEN PRINTER HELPER Work Phone: [facility] 04-27-2024 16:17-0400 Body mass index (BMI) [Ratio] 24.28 kg/m2 Ronny Goodman APRN.SCREEN PRINTER HELPER Work Phone: [facility] 04-27-2024 16:17-0400 Body weight 70.31 kg Ronny Goodman APRN.SCREEN PRINTER HELPER Work Phone: [facility] 04-27-2024 16:17-0400 Heart rate 68 /min Ronny Goodman APRN.SCREEN PRINTER HELPER Work Phone: [facility] 04-27-2024 16:17-0400 Respiratory rate 14 /min Ronny Goodman APRN.SCREEN PRINTER HELPER Work Phone: [facility] 11-03-2022 11:07-0400 Body temperature 98.4 [degF] Tamanna Olea APRN.SCREEN PRINTER HELPER Work Phone: [facility] 11-03-2022 11:07-0400 Body weight 67.59 kg Tamanna Olea APRN.SCREEN PRINTER HELPER Work Phone: [facility] 11-03-2022 11:07-0400 Diastolic blood pressure 72 mm[Hg] Tamanna Olea APRN.SCREEN PRINTER HELPER Work Phone: [facility] 11-03-2022 11:07-0400 Heart rate 84 /min Tamanna Olea APRN.SCREEN PRINTER HELPER Work Phone: [facility] 11-03-2022 11:07-0400 Respiratory rate 16 /min Tamanna Olea APRN.SCREEN PRINTER HELPER Work Phone: [facility] 11-03-2022 11:07-0400 SaO2% (BldA) [Mass fraction] 98 % Tamanna Olea APRN.SCREEN PRINTER HELPER Work Phone: [facility] 11-03-2022 11:07-0400 Systolic blood pressure 130 mm[Hg] Tamanna Olea APRN.SCREEN PRINTER HELPER Work Phone: [facility] 10-22-2022 08:05-0400 Body temperature 99.81 [degF] Krislyn Aberegg PA Work Phone: [facility] 10-22-2022 08:05-0400 Body weight 66.77 kg Krislyn Aberegg PA Work Phone: [facility] 10-22-2022 08:05-0400 Diastolic blood pressure 88 mm[Hg] Krislyn Aberegg PA Work Phone: [facility] 10-22-2022 08:05-0400 Heart rate 99 /min Krislyn Aberegg PA Work Phone: [facility] 10-22-2022 08:05-0400 Respiratory rate 18 /min Krislyn Aberegg PA Work Phone: [facility] 10-22-2022 08:05-0400 SaO2% (BldA) [Mass fraction] 98 % Krislyn Aberegg PA Work Phone: [facility] 10-22-2022 08:05-0400 Systolic blood pressure 134 mm[Hg] Krislyn Aberegg PA Work Phone: [facility] 08-20-2022 12:41-0500 Body height 170.2 cm [facility] 08-20-2022 12:41-0500 Body weight 68.04 kg [facility] 03-28-2022 21:33-0400 Diastolic blood pressure 82 mm[Hg] [facility] Work Phone: 03-28-2022 21:33-0400 Heart rate 79 /min [facility] Work Phone: 03-28-2022 21:33-0400 Respiratory rate 16 /min [facility] Work Phone: 03-28-2022 21:33-0400 SaO2% (BldA) [Mass fraction] 97 % [facility] Work Phone: 03-28-2022 21:33-0400 Systolic blood pressure 134 mm[Hg] [facility] Work Phone: 03-28-2022 19:06-0400 Body height 170.18 cm [facility] Work Phone: 03-28-2022 19:06-0400 Body mass index (BMI) [Ratio] 23.5 kg/m2 [facility] Work Phone: 03-28-2022 19:06-0400 Body temperature 98.8 [degF] [facility] Work Phone: 03-28-2022 19:06-0400 Body weight 68.03 kg [facility] Work Phone: 03-28-2022 18:44-0400 Body temperature 99 [degF] Nicolas Montano MD Work Phone: [facility] 03-28-2022 18:44-0400 Diastolic blood pressure 76 mm[Hg] Nicolas Montano MD Work Phone: [facility] 03-28-2022 18:44-0400 Heart rate 55 /min Nicolas Montano MD Work Phone: [facility] 03-28-2022 18:44-0400 Respiratory rate 16 /min Nicolas Montano MD Work Phone: [facility] 03-28-2022 18:44-0400 SaO2% (BldA) [Mass fraction] 100 % Nicolas Montano MD Work Phone: [facility] 03-28-2022 18:44-0400 Systolic blood pressure 138 mm[Hg] Nicolas Montano MD Work Phone: [facility] Encounters Encounter Date Encounter Type Care Provider Facility Start: 04-14-2025 ambulatory Brandon Monet Facilit y:[facility] Start: 03-23-2025 End: 03-23-2025 Telephone encounter Ladarius Jones MD Work Phone: [facility] Comment on above: Insurance Authorizat ion (PRIOR AUTH SPIRONOLATONE 25 MG) Start: 01-28-2025 End: 03-30-2025 Follow-up encounter Ladarius Jones MD Work Phone: [facility] Start: 01-27-2025 End: 01-27-2025 ambulatory LADARIUS JONES Facility:[facility] Start: 01-26-2025 End: 01-26-2025 Telemedicine consultation with patient Ladarius Jones MD Work Phone: [facility] Start: 01-26-2025 End: 01-26-2025 ambulatory Ladarius Jones MD Work Phone: [facility] Comment on above: Resistant hypertensi on (Primary Dx) Start: 01-25-2025 End: 01-25-2025 Telephone encounter Ladarius Jones MD Work Phone: [facility] Comment on above: Appointment; Orders Start: 10-28-2024 End: 11-01-2024 Follow-up encounter Ladarius Jones MD Work Phone: [facility] Start: 10-27-2024 End: 10-27-2024 ambulatory LADARIUS OJNES Facility:[facility] Start: 10-19-2024 End: 11-19-2024 ambulatory Brandon L Monet DO Work Phone: [facility] Start: 10-18-2024 End: 10-18-2024 ambulatory BRANDON L MONET Facility:[facility] Start: 10-18-2024 End: 10-19-2024 Follow-up encounter Iza Simms APRN.SCREEN PRINTER HELPER Work Phone: [facility] Start: 10-14-2024 End: 10-14-2024 Office outpatient visit 25 minutes Iza Simms APRN.SCREEN PRINTER HELPER Work Phone: [facility] Comment on above: Hospital discharge f ollow-up (Primary Dx); Dysuria; Urinary urgency; Primary hypertension; Hyponatremia; Nonintractable episodic headache, unspecified headache type; Yeast infection Start: 10-14-2024 End: 10-15-2024 Orders Only Ladarius Jones MD Work Phone: [facility] Comment on above: Hyponatremia (Primar y Dx) Results Start: 10-13-2024 End: 10-13-2024 E-mail encounter from caregiver Nurse Card Wstr Work Phone: Cardiology Start: 10-13-2024 End: 10-13-2024 ambulatory Nurse Card Wstr Work Phone: Cardiology Comment on above: Stress Test Instruct ions for 10/18/24 Start: 10-11-2024 End: 10-12-2024 ambulatory Ivory Espinoza APRN.SCREEN PRINTER HELPER Work Phone: [facility] Comment on above: Sodium/ potassium bl ood work Start: 10-08-2024 ambulatory Jonathan Brasher Fac ility:[facility] Start: 10-08-2024 End: 10-09-2024 Evaluation and management of inpatient Dr. Jonathan Brasher DO -Progressive Care Unit Work Phone: Start: 10-08-2024 End: 11-03-2024 Follow-up encounter Ladarius Jones MD Work Phone: [facility] Comment on above: Results Start: 10-08-2024 End: 10-08-2024 Telephone encounter Aditya Brown MD Work Phone: [facility] [place] Start: 10-07-2024 End: 10-07-2024 ambulatory BRANDON MONET Facility:[facility] Start: 10-06-2024 End: 10-06-2024 Telemedicine consultation with patient Ladarius Jones MD Work Phone: [facility] Start: 10-06-2024 End: 10-06-2024 ambulatory Ladarius Jones MD Work Phone: [facility] Comment on above: Resistant hypertensi on Start: 09-28-2024 End: 09-28-2024 ambulatory BRANDON L MONET Facility:[facility] Start: 09-28-2024 End: 09-28-2024 Office outpatient visit 15 minutes Dylan Cole PA-C Work Phone: [facility] Comment on above: Acute maxillary sinu sitis, recurrence not specified (Primary Dx); Hypertension, unspecified type Start: 09-15-2024 End: 09-16-2024 ambulatory Ivory Espinoza FEED RESEARCH AIDE.SCREEN PRINTER HELPER Work Phone: [facility] Comment on above: BP results Start: 08-31-2024 End: 08-31-2024 ambulatory BRANDON L MONET Facility:[facility] Start: 08-31-2024 End: 08-31-2024 Office outpatient visit 15 minutes Ivory Espinoza FEED RESEARCH AIDE.SCREEN PRINTER HELPER Work Phone: [facility] Comment on above: Resistant hypertensi on (Primary Dx) Start: 08-30-2024 End: 10-30-2024 Follow-up encounter Iza Simms FEED RESEARCH AIDE.SCREEN PRINTER HELPER Work Phone: [facility] Start: 08-26-2024 End: 08-26-2024 ambulatory IZA SIMMS Facility:[facility] Start: 08-25-2024 ambulatory IZA SIMMS Fa cility:[id number] Start: 08-25-2024 End: 08-25-2024 Subsequent hospital visit by physician Nicolette Barnett [facility] Comment on above: Primary hypertension [I10] Start: 08-18-2024 End: 08-18-2024 Refill Iza Simms FEED RESEARCH AIDE.SCREEN PRINTER HELPER Work Phone: [facility] Comment on above: Refill Request Start: 08-13-2024 End: 08-27-2024 Telephone encounter Iza Simms FEED RESEARCH AIDE.SCREEN PRINTER HELPER Work Phone: [facility] Comment on above: Results Start: 08-13-2024 End: 08-13-2024 Office outpatient visit 25 minutes Iza Shahla Simms FEED RESEARCH AIDE.SCREEN PRINTER HELPER Work Phone: [facility] [place] Comment on above: Primary hypertension Start: 08-13-2024 End: 08-13-2024 ambulatory IZA SIMMS Facility:[facility] Start: 08-07-2024 End: 08-07-2024 Emergency department patient visit Dr. Karl العراقي DO -Emergency Department Work Phone: Start: 08-06-2024 End: 08-13-2024 ambulatory Nurse Intm/Famp Triage [facility] Work Phone: Nurse Phone Triage Comment on above: Hypertension BP readings Start: 07-29-2024 End: 07-29-2024 Office outpatient visit 25 minutes Ivory Alexis FEED RESEARCH AIDE.SCREEN PRINTER HELPER Work Phone: [facility] [place] Comment on above: Primary hypertension (Primary Dx); Dysthymia Start: 07-29-2024 End: 07-29-2024 ambulatory BRANDON L MONET Facility:[facility] Start: 07-20-2024 End: 07-28-2024 ambulatory Ivory Alexis FEED RESEARCH AIDE.SCREEN PRINTER HELPER Work Phone: [facility] [place] Comment on above: BP readings Start: 07-01-2024 End: 07-01-2024 ambulatory BRANDON L MONET Facility:[facility] Start: 07-01-2024 End: 07-01-2024 Office outpatient visit 25 minutes Ivory Alexis FEED RESEARCH AIDE.SCREEN PRINTER HELPER Work Phone: [facility] [place] Comment on above: Primary hypertension (Primary Dx); Dysthymia Start: 06-02-2024 End: 06-02-2024 Office outpatient visit 15 minutes Ivory Alexis FEED RESEARCH AIDE.SCREEN PRINTER HELPER Work Phone: [facility] [place] Comment on above: Primary hypertension (Primary Dx) Start: 06-02-2024 End: 06-02-2024 ambulatory BRANDON L MONET Facility:[facility] Start: 05-30-2024 End: 05-30-2024 Emergency department patient visit Karl Dulce Maria Facility:[facility] Start: 05-19-2024 End: 05-19-2024 ambulatory Ivory Espinoza APRN.SCREEN PRINTER HELPER Work Phone: [facility] Comment on above: Blood pressure readi ngs Start: 05-10-2024 End: 05-10-2024 ambulatory BRANDON L MONET Facility:[facility] Start: 05-05-2024 End: 05-05-2024 ambulatory BRANDON L MONET Facility:[facility] Start: 05-05-2024 End: 05-05-2024 Subsequent hospital visit by physician Pat [facility] Work Phone: Radiology Comment on above: Primary hypertension [I10] Start: 05-05-2024 End: 05-05-2024 Office outpatient visit 40 minutes Ivory Espinoza APRN.SCREEN PRINTER HELPER Work Phone: [facility] Comment on above: Closed nondisplaced fracture of head of left radius with routine healing, subsequent encounter (Primary Dx); Primary hypertension; Headache, unspecified headache type Start: 05-05-2024 End: 05-05-2024 ambulatory BRANDON L MONET Facility:[facility] Start: 05-03-2024 End: 05-04-2024 Telephone encounter Genoveva Carrera PA-C Work Phone: [facility] Comment on above: Results Start: 04-27-2024 End: 04-27-2024 Subsequent hospital visit by physician Xr [facility] Work Phone: Radiology Comment on above: Injury of left upper arm, initial encounter [S49.92XA] Start: 04-27-2024 End: 04-27-2024 Patient encounter procedure Ronny Goodman APRN.SCREEN PRINTER HELPER Work Phone: [facility] Comment on above: Injury of left upper arm, initial encounter (Primary Dx); Elevated BP without diagnosis of hypertension Start: 04-27-2024 End: 04-27-2024 ambulatory RONNY GOODMAN Facility:[facility] Start: 12-02-2023 Telephone encounter Ivory Madera FEED RESEARCH AIDE.SCREEN PRINTER HELPER Work Phone: [facility] [place] Comment on above: Results Start: 11-18-2023 Telephone encounter Ivory Madera FEED RESEARCH AIDE.SCREEN PRINTER HELPER Work Phone: [facility] [place] Comment on above: Orders Start: 08-21-2023 Refill Ivory Rodriguez lakia FEED RESEARCH AIDE.SCREEN PRINTER HELPER Work Phone: [facility] [place] Comment on above: Refill Request Start: 08-01-2023 End: 08-01-2023 Subsequent hospital visit by physician Pat [facility] [place] Work Phone: Radiology Comment on above: Chronic pain of righ t knee [M25.561, G89.29] Start: 11-03-2022 End: 11-03-2022 Patient encounter procedure Tamanna Olea APRN.SCREEN PRINTER HELPER Work Phone: [facility] Comment on above: Contact dermatitis d ue to plants, except food, unspecified contact dermatitis type (Primary Dx) Start: 10-22-2022 End: 10-22-2022 Subsequent hospital visit by physician Pat [facility] [place] Work Phone: Radiology Comment on above: Acute cough [R05.1] Start: 10-22-2022 End: 10-22-2022 Patient encounter procedure Maicol LYNCH Work Phone: [facility] Comment on above: Acute cough (Primary Dx); Rib pain; Pneumonia of left lower lobe due to infectious organism Start: 10-10-2022 End: 10-10-2022 Patient encounter procedure Tree Dougherty MD Work Phone: Orthopaedics Comment on above: Ganglion of right wr ist (Primary Dx); Dupuytren's contracture of right hand Start: 09-09-2022 End: 09-09-2022 Patient encounter procedure Kathryn Alan PA-C Work Phone: Orthopaedics Comment on above: Ganglion of right wr ist (Primary Dx); Dupuytren's contracture Start: 08-30-2022 End: 08-30-2022 ambulatory TREE DOUGHERTY Facility:[facility] Start: 08-28-2022 Telephone encounter Ivory Madera APRN.SCREEN PRINTER HELPER Work Phone: [facility] Comment on above: Results Start: 08-23-2022 End: 08-23-[address] [facility] Work Phone: Start: 08-23-2022 End: 08-23-2022 Patient encounter procedure [facility] Breast [facility] Start: 08-20-2022 End: 08-20-2022 ambulatory TREE DOUGHERTY Facility:[facility] Start: 08-20-2022 [facility] Start: 08-20-2022 End: 08-20-2022 [facility] Start: 08-20-2022 End: 08-20-2022 ambulatory [facility] Comment on above: Preoperative examina tion (Primary Dx); Dysthymia; Gastroesophageal reflux disease, unspecified whether esophagitis present Start: 08-20-2022 End: 08-20-2022 Preprocedural examination done [facility] Start: 07-25-2022 Telephone encounter Tree parish MD Work Phone: Orthopaedics Comment on above: Schedule Surgery Start: 07-25-2022 End: 07-25-2022 Patient encounter procedure Tree Dougherty MD Work Phone: Orthopaedics Comment on above: Dupuytren's contract ure of right hand; Ganglion cyst Start: 07-01-2022 Telephone encounter Ivory Madera APRN.SCREEN PRINTER HELPER Work Phone: [facility] Comment on above: Results Start: 06-12-2022 ambulatory Brandon braun DO Work Phone: Internal Medicine [facility] [place] Start: 04-17-2022 Chart abstracting Brandon west DO Work Phone: [facility] Start: 03-28-2022 End: 03-28-2022 Emergency department patient visit [facility] Start: 03-28-2022 End: 03-28-2022 Patient encounter procedure Nicolas Montano MD Work Phone: [facility] Comment on above: Laceration of third toe of right foot, initial encounter (Primary Dx) Start: 08-23-2015 Patient encounter status Nicolas Montano MD Work Phone: [facility] Work Phone: Procedures Date Procedure Procedure Detail Performing Clinician Start: 01-26-2025 Follow-up visit Follow Up LADARIUS JONES Start: 10-14-2024 Urnls dip stick/tabl et rgnt auto w/o microscopy Iza Simms APRN.SCREEN PRINTER HELPER Work Phone: Start: 10-08-2024 Plain chest X-ray Dr. Irian Monet DO Work Phone: Start: 08-25-2024 Dup-scan artl elsa abdl/pel/scrot&/rpr orgn com Iza Simms FEED RESEARCH AIDE.SCREEN PRINTER HELPER Work Phone: Start: 08-07-2024 Plain chest X-ray Dr. Irina Monet DO Work Phone: Start: 05-05-2024 Radiologic exam ches t 2 views Ivory Espinoza APRN.SCREEN PRINTER HELPER Work Phone: Start: 05-05-2024 Ecg routine ecg w/le ast 12 lds i&r only [facility] Provider Start: 08-01-2023 Radiologic exam knee complete 4/more views Ivory Espinoza APRN.SCREEN PRINTER HELPER Work Phone: Start: 08-01-2023 Lipid 1996 panel - S raúl or Plasma Ivory Espinoza APRN.SCREEN PRINTER HELPER Work Phone: Start: 10-22-2022 Radiologic exam ches t 2 views Maicol LYNCH Work Phone: Start: 08-23-2022 End: 08-23-2022 Mammography Ivory Espinoza FEED RESEARCH AIDE.SCREEN PRINTER HELPER Work Phone: Start: 08-16-2022 Colonoscopy [facility] Start: 04-04-2022 Lipid panel [facility] Provid er Start: 03-28-2022 Plain X-ray of toe Start: 04-26-2021 Mammography Nicolas jones MD Work Phone: Plan of Treatment Date Care Activity Detail Author Start: 03-21-2032 Urine microalbumin profile [facility] Start: 08-01-2028 Lipid panel Lipid Screening [facility] Start: 10-08-2027 Diabetes Screening Diabetes Screenin g [facility] Start: 08-16-2027 Colonoscopy COLONOSCOPY [facility] Start: 08-16-2027 COLORECTAL CANCER SCREENING COLORECTAL CANCER SCREENING [facility] Start: 08-16-2027 Screening for malign ant neoplasm of colon [facility] Start: 06-28-2027 LIPID SCREEN LIPID SCREEN [facility] Start: 04-04-2027 LIPID SCREEN LIPID SCREEN [facility] Start: 08-01-2026 Diabetes Screening Diabetes Screenin g [facility] Start: 10-14-2025 Annual PCP Team Rouge Presser rey Disease Visit Annual PCP Team Chronic Disease Visit [facility] Start: 10-14-2025 BP Controlled (<130/80) BP Controlle d (<130/80) [facility] Start: 09-28-2025 Annual PCP Team Rouge Presser rey Disease Visit Annual PCP Team Chronic Disease Visit [facility] Start: 08-31-2025 Annual PCP Team [place] Presser rey Disease Visit Annual PCP Team Chronic Disease Visit [facility] Start: 08-13-2025 Annual PCP Team [place] Presser rey Disease Visit Annual PCP Team Chronic Disease Visit [facility] Start: 08-13-2025 Covid-19 Vaccine ( season) Covid-19 Vaccine () [facility] Comment on above: Postponed from 03/21 (Declined at this time) Start: 07-29-2025 Annual PCP Team Rouge Presser rey Disease Visit Annual PCP Team Chronic Disease Visit [facility] Start: 07-29-2025 End: 10-28-2025 CBC W Auto Differential panel - Blood COMPLETE BLOOD COUNT AND DIFFERENTIAL Lab Routine Resistant hypertension Expected: 07/29/2025, Expires: 10/28/2025 [facility] Comment on above: Expected: 07/29/2025 , Expires: 10/28/2025 Start: 07-29-2025 End: 10-28-2025 Comprehensive metabolic 2000 panel - Serum or Plasma COMPREHENSIVE METABOLIC PANEL Lab Routine Resistant hypertension Expected: 07/29/2025, Expires: 10/28/2025 [facility] Comment on above: Expected: 07/29/2025 , Expires: 10/28/2025 Start: 07-29-2025 End: 10-28-2025 CYSTATIN C CYSTATIN C Lab Routine Resistant hypertension Expected: 07/29/2025, Expires: 10/28/2025 [facility] Comment on above: Expected: 07/29/2025 , Expires: 10/28/2025 Start: 07-29-2025 End: 10-28-2025 Magnesium [Mass/volume] in Serum or Plasma MAGNESIUM Lab Routine Resistant hypertension Expected: 07/29/2025, Expires: 10/28/2025 [facility] Comment on above: Expected: 07/29/2025 , Expires: 10/28/2025 Start: 07-29-2025 End: 10-28-2025 Microalbumin/Creatinine [Mass Ratio] in Urine ALBUMIN/CREATININE RATIO, URINE Lab Routine Resistant hypertension Expected: 07/29/2025, Expires: 10/28/2025 [facility] Comment on above: Expected: 07/29/2025 , Expires: 10/28/2025 Start: 07-29-2025 End: 10-28-2025 Phosphate [Mass/volume] in Serum or Plasma PHOSPHORUS INORGANIC Lab Routine Resistant hypertension Expected: 07/29/2025, Expires: 10/28/2025 [facility] Comment on above: Expected: 07/29/2025 , Expires: 10/28/2025 Start: 07-29-2025 End: 10-28-2025 Protein/Creatinine [Mass Ratio] in Urine PROTEIN / CREATININE RATIO Lab Routine Resistant hypertension Expected: 07/29/2025, Expires: 10/28/2025 [facility] Comment on above: Expected: 07/29/2025 , Expires: 10/28/2025 Start: 07-29-2025 End: 10-28-2025 Urate [Mass/volume] in Serum or Plasma URIC ACID Lab Routine Resistant hypertension Expected: 07/29/2025, Expires: 10/28/2025 [facility] Comment on above: Expected: 07/29/2025 , Expires: 10/28/2025 Start: 07-29-2025 End: 10-28-2025 Urinalysis complete panel - Urine URINALYSIS, WITH MICROSCOPIC Lab Routine Resistant hypertension Expected: 07/29/2025, Expires: 10/28/2025 [facility] Comment on above: Expected: 07/29/2025 , Expires: 10/28/2025 Start: 07-01-2025 Annual PCP Team Rouge Presser rey Disease Visit Annual PCP Team Chronic Disease Visit [facility] Start: 06-28-2025 DIABETES SCREEN DIABETES SCREEN [facility] Start: 06-02-2025 Annual PCP Team Rouge Presser rey Disease Visit Annual PCP Team Chronic Disease Visit [facility] Start: 04-28-2025 End: 07-28-2025 Comprehensive metabolic 2000 panel - Serum or Plasma COMPREHENSIVE METABOLIC PANEL Lab Routine Resistant hypertension Expected: 04/28/2025, Expires: 07/28/2025 [facility] Work Phone: Comment on above: Expected: 04/28/2025 , Expires: 07/28/2025 Start: 03-21-2025 Influenza vaccination Influenza Vacc ine (#1) [facility] Start: 02-28-2025 End: 02-28-2025 Patient encounter procedure 02/28/2025 2:20 PM EDT Office Visit Family Medicine [place] [address] [place], [place] [address] Brandon Monet, [address] [place], [place] [id number] physical with pap [facility] [place] Comment on above: physical with pap Start: 01-26-2025 End: 04-27-2025 ALDOSTERONE/DIRECT RENIN RATIO ALDOSTERONE/DIRECT RENIN RATIO Lab Routine Resistant hypertension Expected: 01/26/2025, Expires: 04/27/2025 [facility] Comment on above: Expected: 01/26/2025 , Expires: 04/27/2025 Start: 01-26-2025 End: 04-27-2025 Catecholamines 3 panel [Mass/volume] - Plasma CATECHOLAMINES FRA Lab Routine Resistant hypertension Expected: 01/26/2025, Expires: 04/27/2025 [facility] Comment on above: Expected: 01/26/2025 , Expires: 04/27/2025 Start: 01-26-2025 End: 04-27-2025 Corticotropin [Mass/volume] in Plasma ACTH BLD Lab Routine Resistant hypertension Expected: 01/26/2025, Expires: 04/27/2025 [facility] Comment on above: Expected: 01/26/2025 , Expires: 04/27/2025 Start: 01-26-2025 End: 04-27-2025 Cortisol Free [Mass/volume] in Serum or Plasma CORTISOL, FREE Lab Routine Resistant hypertension Expected: 01/26/2025, Expires: 04/27/2025 [facility] Comment on above: Expected: 01/26/2025 , Expires: 04/27/2025 Start: 01-26-2025 End: 04-27-2025 METANEPHRINES, FREE PLASMA METANEPHRINES, FREE PLASMA Lab Routine Resistant hypertension Expected: 01/26/2025, Expires: 04/27/2025 [facility] Comment on above: Expected: 01/26/2025 , Expires: 04/27/2025 Start: 01-26-2025 End: 01-26-2025 Follow-up encounter 01/26/2025 10:40 AM EDT [facility] [address] [place] [address] Ladarius Arenas MD [address] [place] [address] Follow up Kidney Medicine Comment on above: Follow up Start: 01-17-2025 Influenza vaccination Influenza Vacc ine (#1) [facility] Comment on above: Postponed from 03/21 (Declined at this time) Start: 10-29-2024 End: 10-29-2024 ambulatory 10/29/2024 3:15 PM EDT Results Only [place] [facility] [address] [place] [address] [place] [facility] Start: 10-28-2024 End: 01-27-2025 Renal function 2000 panel - Serum or Plasma RENAL FUNCTION PANEL Lab Routine Hyponatremia Expected: 10/28/2024, Expires: 01/27/2025 [facility] Work Phone: Comment on above: Expected: 10/28/2024 , Expires: 01/27/2025 Start: 10-18-2024 End: 10-18-2024 Nursing evaluation of patient and report Cardiology Comment on above: Primary hypertension [I10] Start: 10-14-2024 End: 10-14-2024 Patient encounter procedure 10/14/2024 12:20 PM EDT Office Visit [facility] [place] [address] [facility] [place] [id number] Ivory Espinoza APRN.SCREEN PRINTER HELPER [address] [facility] [place] [id number] 1 month follow up (seeing sample sawyer on 10/06) [facility] [place] Comment on above: 1 month follow up (s eeing sample sawyer on 10/06) Start: 10-12-2024 End: 01-11-2025 ALDOSTERONE/DIRECT RENIN RATIO ALDOSTERONE/DIRECT RENIN RATIO Lab Routine Hyponatremia Hypokalemia Primary hypertension Expected: 10/12/2024, Expires: 01/11/2025 [facility] Comment on above: Expected: 10/12/2024 , Expires: 01/11/2025 Start: 10-12-2024 End: 01-11-2025 Renal function 2000 panel - Serum or Plasma RENAL FUNCTION PANEL Lab Routine Hyponatremia Hypokalemia Expected: 10/12/2024, Expires: 01/11/2025 [facility] Work Phone: Comment on above: Expected: 10/12/2024 , Expires: 01/11/2025 Start: 10-09-2024 Patient discharge [facility] Start: 10-08-2024 Speech therapy assessment [facility] Start: 10-08-2024 Following clinical p athway protocol [facility] Start: 10-08-2024 Ambulation without limitation [facility] Start: 10-08-2024 Assessment of risk o f venous thromboembolism [facility] Start: 10-08-2024 Insertion of cathete r into peripheral vein [facility] Start: 10-08-2024 [address] therapy [facility] Start: 10-08-2024 Providing care accor ding to standard [facility] Start: 10-08-2024 [facility] Start: 10-08-2024 Verification routine [facility] Start: 10-08-2024 Admission procedure [facility] Start: 10-08-2024 Hospital admission, emergency, from emergency room, medical nature [facility] Start: 10-08-2024 Osmolality measureme nt, serum [facility] Start: 10-08-2024 Serum inorganic phos phate measurement [facility] Start: 10-08-2024 Patient referral to dietitian [facility] Start: 10-06-2024 End: 01-05-2025 ADH/ARGININE VASOPRS ADH/ARGININE VASOPRS Lab Routine Resistant hypertension Expected: 10/06/2024, Expires: 01/05/2025 [facility] Comment on above: Expected: 10/06/2024 , Expires: 01/05/2025 Start: 10-06-2024 End: 01-05-2025 Catecholamines 3 panel [Mass/volume] - Plasma CATECHOLAMINES FRA Lab Routine Resistant hypertension Expected: 10/06/2024, Expires: 01/05/2025 [facility] Comment on above: Expected: 10/06/2024 , Expires: 01/05/2025 Start: 10-06-2024 End: 01-05-2025 CBC W Auto Differential panel - Blood COMPLETE BLOOD COUNT AND DIFFERENTIAL Lab Routine Resistant hypertension Expected: 10/06/2024 (Approximate), Expires: 01/05/2025 [facility] Comment on above: Expected: 10/06/2024 (Approximate), Expires: 01/05/2025 Start: 10-06-2024 End: 01-05-2025 Chloride [Moles/volume] in Urine collected for unspecified duration CHLORIDE, RANDOM URINE Lab Routine Resistant hypertension Expected: 10/06/2024, Expires: 01/05/2025 [facility] Comment on above: Expected: 10/06/2024 , Expires: 01/05/2025 Start: 10-06-2024 End: 01-05-2025 Comprehensive metabolic 2000 panel - Serum or Plasma COMPREHENSIVE METABOLIC PANEL Lab Routine Resistant hypertension Expected: 10/06/2024 (Approximate), Expires: 01/05/2025 [facility] Comment on above: Expected: 10/06/2024 (Approximate), Expires: 01/05/2025 Start: 10-06-2024 End: 01-05-2025 Corticotropin [Mass/volume] in Plasma ACTH BLD Lab Routine Resistant hypertension Expected: 10/06/2024, Expires: 01/05/2025 [facility] Comment on above: Expected: 10/06/2024 , Expires: 01/05/2025 Start: 10-06-2024 End: 01-05-2025 Cortisol Free [Mass/volume] in Serum or Plasma CORTISOL, FREE Lab Routine Resistant hypertension Expected: 10/06/2024, Expires: 01/05/2025 [facility] Comment on above: Expected: 10/06/2024 , Expires: 01/05/2025 Start: 10-06-2024 End: 01-05-2025 Creatinine [Mass/volume] in Urine collected for unspecified duration CREATININE RANDOM URINE Lab Routine Resistant hypertension Expected: 10/06/2024, Expires: 01/05/2025 [facility] Comment on above: Expected: 10/06/2024 , Expires: 01/05/2025 Start: 10-06-2024 End: 01-05-2025 CYSTATIN C CYSTATIN C Lab Routine Resistant hypertension Expected: 10/06/2024 (Approximate), Expires: 01/05/2025 [facility] Comment on above: Expected: 10/06/2024 (Approximate), Expires: 01/05/2025 Start: 10-06-2024 End: 01-05-2025 Magnesium [Mass/volume] in Serum or Plasma MAGNESIUM Lab Routine Resistant hypertension Expected: 10/06/2024, Expires: 01/05/2025 [facility] Work Phone: Comment on above: Expected: 10/06/2024 , Expires: 01/05/2025 Start: 10-06-2024 End: 01-05-2025 METANEPHRINES, FREE PLASMA METANEPHRINES, FREE PLASMA Lab Routine Resistant hypertension Expected: 10/06/2024, Expires: 01/05/2025 [facility] Comment on above: Expected: 10/06/2024 , Expires: 01/05/2025 Start: 10-06-2024 End: 01-05-2025 Microalbumin/Creatinine [Mass Ratio] in Urine ALBUMIN/CREATININE RATIO, URINE Lab Routine Resistant hypertension Expected: 10/06/2024, Expires: 01/05/2025 [facility] Comment on above: Expected: 10/06/2024 , Expires: 01/05/2025 Start: 10-06-2024 End: 01-05-2025 MISC SEND OUT TST 1 MISC SEND OUT TST 1 Lab Routine Resistant hypertension Expected: 10/06/2024, Expires: 01/05/2025 [facility] Comment on above: Expected: 10/06/2024 , Expires: 01/05/2025 Start: 10-06-2024 End: 01-05-2025 Osmolality of Serum or Plasma OSMOLALITY Lab Routine Resistant hypertension Expected: 10/06/2024, Expires: 01/05/2025 [facility] Comment on above: Expected: 10/06/2024 , Expires: 01/05/2025 Start: 10-06-2024 End: 01-05-2025 Osmolality of Urine OSMOLALITY URINE Lab Routine Resistant hypertension Expected: 10/06/2024, Expires: 01/05/2025 [facility] Comment on above: Expected: 10/06/2024 , Expires: 01/05/2025 Start: 10-06-2024 End: 01-05-2025 Phosphate [Mass/volume] in Serum or Plasma PHOSPHORUS INORGANIC Lab Routine Resistant hypertension Expected: 10/06/2024 (Approximate), Expires: 01/05/2025 [facility] Comment on above: Expected: 10/06/2024 (Approximate), Expires: 01/05/2025 Start: 10-06-2024 End: 01-05-2025 Potassium [Moles/volume] in Urine collected for unspecified duration POTASSIUM RANDOM URINE Lab Routine Resistant hypertension Expected: 10/06/2024, Expires: 01/05/2025 [facility] Comment on above: Expected: 10/06/2024 , Expires: 01/05/2025 Start: 10-06-2024 End: 01-05-2025 Protein/Creatinine [Mass Ratio] in Urine PROTEIN / CREATININE RATIO Lab Routine Resistant hypertension Expected: 10/06/2024, Expires: 01/05/2025 [facility] Comment on above: Expected: 10/06/2024 , Expires: 01/05/2025 Start: 10-06-2024 End: 01-05-2025 Sodium [Moles/volume] in Urine collected for unspecified duration SODIUM RANDOM URINE Lab Routine Resistant hypertension Expected: 10/06/2024, Expires: 01/05/2025 [facility] Comment on above: Expected: 10/06/2024 , Expires: 01/05/2025 Start: 10-06-2024 End: 01-05-2025 Urate [Mass/volume] in Serum or Plasma URIC ACID Lab Routine Resistant hypertension Expected: 10/06/2024, Expires: 01/05/2025 [facility] Comment on above: Expected: 10/06/2024 , Expires: 01/05/2025 Start: 10-06-2024 End: 01-05-2025 Urinalysis complete panel - Urine URINALYSIS, WITH MICROSCOPIC Lab Routine Resistant hypertension Expected: 10/06/2024, Expires: 01/05/2025 [facility] Comment on above: Expected: 10/06/2024 , Expires: 01/05/2025 Start: 10-06-2024 End: 10-06-2024 ambulatory [facility] [address] [place] [address] Ladarius Arenas MD [address] [place] [address] Resistant hypertension [I1A.0] Kidney Medicine Comment on above: Resistant hypertensi on [I1A.0] Start: 08-31-2024 End: 08-31-2024 Patient encounter procedure 08/31/2024 1:20 PM EST Office Visit Family Tamie Orellana [address] [place], [place] [id number] Ivory Espinoza APRN.LAQUITA [address] [place], [place] [id number] 1 month follow up Family Tamie Orellana Comment on above: 1 month follow up Start: 08-26-2024 End: 08-26-2024 ambulatory 08/26/2024 12:30 PM EST [facility] [address] [place] [address] [place] [facility] Start: 08-25-2024 End: 08-25-2024 Patient encounter procedure 08/25/2024 8:15 AM EST Appointment [facility] [address] [place] [address] Primary hypertension [I10] [facility] Comment on above: Primary hypertension [I10] Start: 08-13-2024 End: 11-12-2024 ALDOSTERONE/DIRECT RENIN RATIO ALDOSTERONE/DIRECT RENIN RATIO Lab Routine Primary hypertension Expected: 08/13/2024, Expires: 11/12/2024 [facility] Comment on above: Expected: 08/13/2024 , Expires: 11/12/2024 Start: 08-13-2024 End: 08-13-2024 Patient encounter procedure 08/13/2024 1:00 PM EST Office Visit Family Medicine [place] [address] [facility] [place] [address] Iza Simms, FEED RESEARCH AIDE.SCREEN PRINTER HELPER [address] [place] [address] hypertension er follow up Family Medicine [place] Comment on above: hypertension er foll ow up Start: 08-07-2024 [facility] Start: 08-01-2024 Covid-19 Vaccine (#1) Covid-19 Vacci ne (#1) [facility] Comment on above: Postponed from 11/19 (Declined at this time) Start: 08-01-2024 Covid-19 Vaccine () Covid-19 Vaccine () [facility] Comment on above: Postponed from 03/21 (Declined at this time) Start: 08-01-2024 Shingrix Vaccine (1 of 2) Julien grix Vaccine (1 of 2) [facility] Comment on above: Postponed from 05/22 (Declined at this time) Start: 07-29-2024 End: 07-29-2024 Patient encounter procedure 07/29/2024 12:00 PM EST Office Visit [place] [address] [place] [address] Ivory Espinoza APRN.SCREEN PRINTER HELPER [address] [place] [address] bp check [facility] [place] Comment on above: bp check Start: 06-02-2024 End: 06-02-2024 Patient encounter procedure 06/02/2024 3:20 PM EST Office Visit Family Medicine [place] [address] [place] [address] Ivory Espinoza APRN.SCREEN PRINTER HELPER [address] [place] [address] 1 month bp check Family Medicine [place] Comment on above: 1 month bp check Start: 05-10-2024 End: 05-10-2024 Patient encounter procedure 05/10/2024 1:00 PM EDT Office Visit Cardiology [address] [place] [address] Primary hypertension [I10] Cardiology Comment on above: Primary hypertension [I10] Start: 05-05-2024 End: 05-05-2024 Patient encounter procedure 05/05/2024 3:20 PM EDT Office Visit Family Medicine [place] [address] [place] [address] Ivory Espinoza APRN.SCREEN PRINTER HELPER [address] [place] [address] bp check Family Medicine [place] Comment on above: bp check Start: 03-21-2024 Covid-19 Vaccine ( season) Covid-19 Vaccine ( season) [facility] Start: 03-21-2024 Covid-19 Vaccine ( season) Covid-19 Vaccine () [facility] Start: 03-21-2024 Influenza vaccination C [facility] Start: 01-18-2024 Influenza vaccination Influenza Vacc ine (#1) [facility] Comment on above: Postponed from 03/21 (Declined at this time) Start: 08-23-2023 Mammography MAMMOGRAM [facility] Start: 08-23-2023 Screening for malign ant neoplasm of breast Mammogram Screening [facility] Start: 08-16-2023 Colonoscopy COLONOSCOPY [facility] Start: 08-16-2023 COLORECTAL CANCER SCREENING COLORECTAL CANCER SCREENING [facility] Start: 06-28-2023 COVID-19 VACCINE (#1) COVID-19 VACCI NE (#1) [facility] Comment on above: Postponed from 11/19 (Declined at this time) Start: 06-28-2023 HEPATITIS C SCREENING HEPATITIS C SC REENING [facility] Comment on above: Postponed from 05/22 (Declined at this time) Start: 06-28-2023 HIV SCREENING HIV SCREENING [facility] Comment on above: Postponed from 05/22 (Declined at this time) Start: 06-28-2023 SHINGRIX VACCINE (1 of 2) JULIEN GRIX VACCINE (1 of 2) [facility] Comment on above: Postponed from 05/22 (Declined at this time) Start: 03-21-2023 Influenza vaccination INFLUENZ A (Season Ended) [facility] Start: 01-17-2023 Influenza vaccination INFLUENZA (#1) [facility] Comment on above: Postponed from 03/21 (Declined at this time) Start: 01-02-2023 LIPID SCREEN LIPID SCREEN [facility] Start: 04-26-2022 Mammography MAMMOGRAM [facility] Start: 03-21-2022 Influenza vaccination INFLUENZA (#1) [facility] Start: 01-02-2021 DIABETES SCREEN DIABETES SCREEN [facility] Start: 2020 Pneumococcal Vaccine : 50+ (1 of 1 - PCV) Pneumococcal Vaccine: 50+ (1 of 1 - PCV) [facility] Start: 2020 SHINGRIX VACCINE (1 of 2) JULIEN GRIX VACCINE (1 of 2) [facility] Start: 2015 COLOGUARD (FIT-DNA) COLOGUARD (FIT-D NA) [facility] Start: 2015 Colonoscopy COLONOSCOPY [facility] Start: 2015 COLORECTAL CANCER SCREENING COLORECTAL CANCER SCREENING [facility] Start: [address] COLONOGRAPHY [facility] Start: 2015 FECAL OCCULT BLOOD FECAL OCCULT BLOO D [facility] Start: 2015 Screening for malign ant neoplasm of colon [facility] Start: 2015 SIGMOIDOSCOPY SIGMOIDOSCOPY [facility] Start: 1989 Urine microalbumin profile DTAP,TDAP ,TD (1 - Tdap) [facility] Start: 1988 Anxiety Screening Anxiety Screening [facility] Start: 1988 BP Controlled (<130/80) BP Controlle d (<130/80) [facility] Start: 1988 HEPATITIS C SCREENING HEPATITIS C SC REENING [facility] Start: 1988 HIV SCREENING HIV SCREENING [facility] Start: 1970 COVID-19 VACCINE (#1) COVID-19 VACCI NE (#1) [facility] Start: 1970 HEPATITIS B (1 of 3 - 3-dose series) HEPATITIS B (1 of 3 - 3-dose series) [facility] Bacteria identified in Urine by Culture BACTERIAL CULTURE, URINE Microbiology Routine Dysuria 10/14/2024 1:55 PM EDT [facility] Work Phone: End: 12-17-2024 DBT Breast - bilateral screening JOSE ANTONIO SCREENING [facility] Radiology Routine Screening mammogram for breast cancer 1 Occurrences starting 11/18/2023 until 12/17/2024 [facility] Work Phone: Comment on above: 1 Occurrences starti ng 11/18/2023 until 12/17/2024 End: 11-18-2025 DBT Breast - bilateral screening JOSE ANTONIO SCREENING [facility] Radiology Routine Encounter for screening mammogram for breast cancer 1 Occurrences starting 10/19/2024 until 11/18/2025 [facility] Work Phone: Comment on above: 1 Occurrences starti ng 10/19/2024 until 11/18/2025 ECG COMPLETE [facility] Comment on above: Ordered: 05/05/2024 End: 05-05-2025 Echocardiography ECHO Cardiology Routine Primary hypertension 1 Occurrences starting 05/05/2024 until 05/05/2025 [facility] Work Phone: Comment on above: 1 Occurrences starti ng 05/05/2024 until 05/05/2025 End: 08-13-2025 EXERCISE STRESS ECG (WITHOUT IMAGING) EXERCISE STRESS ECG (WITHOUT IMAGING) Cardiology Routine Primary hypertension 1 Occurrences starting 08/13/2024 until 08/13/2025 [facility] Work Phone: Comment on above: 1 Occurrences starti ng 08/13/2024 until 08/13/2025 Osmolality of Urine [facility] Patient Education [facility] Work Phone: Patient referral [facility] Work Phone: End: 07-12-2023 Screening mammography bi 2-view breast inc cad JOSE ANTONIO SCREENING Radiology Routine Encounter for screening mammogram for breast cancer 1 Occurrences starting 06/12/2022 until 07/12/2023 [facility] Work Phone: Comment on above: 1 Occurrences starti ng 06/12/2022 until 07/12/2023 Sodium [Moles/volume ] in Urine [facility] End: 08-13-2025 US Renal artery US RENAL [facility] Lab Routine Primary hypertension 1 Occurrences starting 08/13/2024 until 08/13/2025 [facility] Comment on above: 1 Occurrences starti ng 08/13/2024 until 08/13/2025 US Renal artery US [facility] V[facility] Lab Routine Primary hypertension 08/25/2024 8:19 AM EST [facility] Work Phone: End: 05-27-2025 XR Elbow - left AP and Lateral XR ELBOW GENERAL 2V AP/LAT LEFT Radiology Routine Injury of left upper arm, initial encounter 1 Occurrences starting 04/27/2024 until 05/27/2025 [facility] Comment on above: 1 Occurrences starti ng 04/27/2024 until 05/27/2025 XR Elbow - left AP a nd Lateral XR ELBOW GENERAL 2V AP/LAT LEFT Radiology Routine Injury of left upper arm, initial encounter 04/27/2024 5:05 PM EDT [facility] End: 05-27-2025 XR Wrist - left PA and Lateral and Oblique XR WRIST GENERAL 3V PA/LAT/OBL LEFT Radiology Routine Injury of left upper arm, initial encounter 1 Occurrences starting 04/27/2024 until 05/27/2025 [facility] Work Phone: Comment on above: 1 Occurrences starti ng 04/27/2024 until 05/27/2025 XR Wrist - left PA a nd Lateral and Oblique XR WRIST GENERAL 3V PA/LAT/OBL LEFT Radiology Routine Injury of left upper arm, initial encounter 04/27/2024 5:05 PM EDT [facility] Immunizations Immunization Date Immunization Notes Care Provider Ag [facility] 03-28-2022 tetanus toxoid, redu sudha diphtheria toxoid, and acellular pertussis vaccine, adsorbed [facility] 03-21-2022 tetanus toxoid, redu sudha diphtheria toxoid, and acellular pertussis vaccine, adsorbed Ivory Alexis FEED RESEARCH AIDE.SCREEN PRINTER HELPER Work Phone: [facility] Work Phone: 09-03-2016 influenza virus vaccine, unspecified formulation Ivory Alexis FEED RESEARCH AIDE.SCREEN PRINTER HELPER Work Phone: [facility] Payers Date Payer Category Payer Self-pay [id number] 2023 Private Health Insurance [id number] 2021 Private Health Insurance [id number] 2007 Private Health Insurance [id number] Unknown [id number] Unknown [id number] Unknown [id number] [id number] Unknown [id number] [id number] Unknown [id number] [id number] Unknown [id number] Social History Date Type Detail Facility Start: 03-28-2022 End: 03-28-2022 Tobacco smoking status [facility] Unknown if ever smoked [facility] Start: 1970 Sex Assigned At Female C [facility] Start: 03-28-2022 End: 05-05-2024 Tobacco smoking status NHIS Ex-smoker [facility] Start: 03-04-1985 End: 03-04-1995 History of tobacco use Current smoker [facility] Start: 03-04-1985 End: 03-04-1995 History of tobacco use Cigarette Smoker [facility] Start: 03-28-2022 End: 05-05-2024 Tobacco use and exposure Smokeless tobacco non-user [facility] Start: 03-28-2022 End: 01-26-2025 Alcohol intake Current drinker of alcohol (finding) [facility] Start: 03-18-2022 End: 03-28-2022 Exposure to SARS-CoV-2 (event) Not sure [facility] Start: 08-20-2022 Alcohol Comment occasionally - 4 drinks per week [facility] Start: 08-01-2023 End: 06-28-2024 History of Social function [facility] Start: 08-01-2023 End: 06-28-2024 Tobacco use panel [facility] Start: 06-21-2012 Adult Depression Screening Assessment 0 [facility] Start: 08-01-2023 Alcohol [facility] Start: 07-27-2020 Gender identity Identifies as female gender (finding) [facility] Start: 07-27-2020 Sexual orientation Heterosexual (lissy simpsno) [facility] Has the [employer] s, [employer], or [employer] threatened to shut off services in your home in past 12Mo No [facility] Are you now , , , , never or living with a partner? [facility] How often to you hav e a drink containing alcohol? 2-3 time sa week [facility] How many standard drinks containing alcohol do you have on a typical day? 1 or 2 [facility] How often do you hav e 6 or more drinks on 1 occasion? Never [facility] Do you feel stress - tense, restless, nervous, or anxious, or unable to sleep at night because your mind is troubled all the time - these days [OSQ] To some extent [facility] (I/We) worried wheth er (my/our) food would run out before (I/we) got money to buy more. Never true [facility] Start: 10-08-2024 End: 10-08-2024 Tobacco smoking status NHIS Never smoked tobacco (finding) [facility] Start: 10-08-2024 End: 10-09-2024 Sex Female (finding) [facility] Functional Status Date Assessment Result Facility 10-09-2024 Functional status Ambulates [facility] Work Phone: Mental Status Date Assessment Result Facility 10-09-2024 Cognitive function Voice/Name [facility] Work Phone: 10-08-2024 Cognitive function Level Of Cons ciousness Awake;Alert;Appropriate;Follow s Commands [facility] Work Phone: 08-07-2024 Cognitive function Level Of Cons ciousness Awake;Alert;Appropriate;Follow s Commands [facility] Work Phone: Clinical Notes 03-28-2022 to 03-23-2025 Telephone Encounter - Chica Toribio RN - 03/23/2025 11:59 AM EDTTelephone Encounter - Chica Toribio RN - 03/23/2025 11:59 AM EDTTelephone Encounter - Chica Toribio RN - 03/23/2025 11:12 AM EDT Note Date & Type Note Facility 03-23-2025 Telephone encounter Note Images from the original note were not included. ISA TOVAR (Cano: [id number]) Rx #: [id number] Need Help? Call us at Status Sent to Plan today Drug Spironolactone 25MG tablets Form [employer] Electronic PA Form (2016 [facility]) Original Claim Info 19,76 MAXIMUM DAYS SUPPLY OF 30TRANSMISSION FEE UP TO $0.32 MAY APPLY(PHARMACY HELP DESK ) For [employer] [place] of: $58.32 submit to BIN: [id number] PCN: CP Group: COUPON --Service provided at no cost and no switch fee to the pharmacy-- [facility] 03-23-2025 Miscellaneous Notes Images from the original note were not included. ISA TOVAR (Cano: [id number]) Rx #: [id number] Need Help? Call us at Status Sent to Plan today Drug Spironolactone 25MG tablets Form [employer] Electronic PA Form (2016 [facility]) Original Claim Info 19,15 MAXIMUM DAYS SUPPLY OF 30TRANSMISSION FEE UP TO $0.32 MAY APPLY(PHARMACY HELP DESK ) For [employer] [place] of: $58.32 submit to BIN: [id number] PCN: CP Group: COUPON --Service provided at no cost and no switch fee to the pharmacy-- Images from the original note were not included. Prior Auth sent via coverBandcamp. ISA TOVAR (Cano: [id number]) [facility] is processing your PA request and will respond shortly with next steps. You are currently using the fastest method to process this prior authorization. Please do not fax or call [facility] [place] [facility] to resubmit this request. To check for an update later, open this request again from your dashboard. documented in this encounter [facility] 03-23-2025 Telephone encounter Note Images from the original note were not included. Prior Auth sent via covermySendias. ISA TOVAR (Cano: [id number]) [employer] is processing your PA request and will respond shortly with next steps. You are currently using the fastest method to process this prior authorization. Please do not fax or call [employer] to resubmit this request. To check for an update later, open this request again from your dashboard. [facility] 01-26-2025 History of Presen t illness Narrative Images from the original note were not included. Department of Kidney Medicine Medical Specialties [place] NEPHROLOGY FOLLOW UP NOTE Patient Name: Isa Tovar CHIEF COMPLAINT: resistant HTN HPI: 54 y/o female with h/o depression, ex-smoker, GERD, intolerance to lisinopril (cough), intolerance to amlodipine (ankle edema), family h/o HTN (maternal grandmother, both parents, brother and sister); mild elevation of the blood pressure since 2022, and HTN diagnosed in 04/2024; who requested to undergo a virtual videoconference encounter for f/u of resistant HTN. I have communicated my name and active licensure. The patient's identity and physical location were verified at the time of this visit. Either the patient or their legal freight representative has been informed of the risks and benefits of -- and alternatives to -- treatment through a remote evaluation and consents to proceed with the evaluation remotely. Virtual videoconference encounter per patient's request. PAST MEDICAL HISTORY: PAST MEDICAL HISTORY Diagnosis Date Depression PAST SURGICAL HISTORY: PAST SURGICAL HISTORY Procedure Laterality Date COLONOSCOPY SCREENING 08/16/2022 repeat in 5 years, poor bowel prep EXCISION GANGLION WRIST DORSAL/VOLAR PRIMARY Right 08/30/2022 Excision ganglion cyst right wrist and open palmar fasciectomy HAND SURGERY HX Right Dr. Dougherty TONSILLECTOMY PRIMARY/SECONDARY <AGE 12 Tonsillectomy VAGINAL HYSTERECTOMY UTERUS 250 GM/< 07/21/2008 Hysterectomy, vaginal FAMILY HISTORY: FAMILY HISTORY Problem Relation Age of Onset Hypertension Mother Hypertension Father Hypertension Maternal Grandmother Heart Maternal Grandmother Hypertension Sister Heart Brother congenital valve dx, valve replacement/repair No family h/o stroke. 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 MEDICATIONS: losartan (COZAAR) 100 mg tablet Take 1 tablet by mouth once daily. spironolactone (ALDACTONE) 25 mg tablet Take 1 tablet by mouth two times a day. doxazosin (CARDURA) 1 mg tablet Take 1 tablet by mouth daily at bedtime. FLUoxetine (PROZAC) 40 mg capsule Take 1 capsule by mouth two times a day. In addition to 20mg capsule for total of 60mg daily multivitamin tablet Take 1 tablet by mouth once daily. famotidine (PEPCID) 20 mg tablet Take 1 tablet by mouth at bedtime as needed. Wkguiad-Ylouukgnq-Rgiw tab Take by mouth. ALLERGIES: ALLERGIES Allergen Reactions Chlorthalidone Intolerance Hyponatremia and hypokalemia. Amlodipine Intolerance Pedal edema Lisinopril Cough ROS on 01/26/25: PAIN ASSESSMENT: Positive for headaches. She takes Tylenol as needed CONSTITUTIONAL: No snoring. Positive for lightheadedness and weakness. No malaise, fevers or chills. No falls HEENT: Positive for headaches. No hearing impairment NECK: no neck pain, mass or stiffness RESPIRATORY: Positive for coughing. Negative for hemoptysis, wheezing or shortness of breath CARDIOVASCULAR: Negative for chest pain, orthopnea, palpitations, or edema GASTROINTESTINAL: No nausea or vomiting. Negative for diarrhea. No hematemesis, hematochezia, melena or constipation GENITOURINARY: Negative for dysuria or hematuria SKIN: Negative for lesions, rash, and itching NEURO: Positive for headaches. No history of aphasia, dysarthria, syncope, paralysis, seizures or tremors MUSCULOSKELETAL: No joint swelling or back pain ENDOCRINE: No polydipsia or polyphagia HEMATOLOGIC: No bleeding. She bruises easily LYMPHATIC: No generalized lymphadenopathy IMMUNOLOGIC: She doesn't take the influenza vaccine or the CoVID-19 vaccine VITAL SIGNS: Virtual videoconference encounter per patient's request. Most recent vitals on record: Most Recent Value BP: 124/78 as of 10/14/2024 Weight: 68.8 kg (151 lb 9.6 oz) as of 10/14/2024 Pulse: 67 as of 10/14/2024 Temp: 36.9 C (98.5 F) as of 09/28/2024 SpO2: 98% as of 10/14/2024 Resp: 16 as of 09/28/2024 Body Mass Index: 23.74 kg/m 170.2 cm (5' 7) as of 08/30/2022 68.8 kg (151 lb 9.6 oz) as of 10/14/2024 Temp Source: Left Tympanic as of 09/28/2024 Height: 170.2 cm (5' 7) as of 08/30/2022 PHYSICAL EXAM: GENERAL: Pleasant, adult female with BMI 23.68, alert, in no acute distress, cooperative, sitting at home SKIN: No facial rash HEENT: normocephalic, perrl, eomi, moist oral mucosa Virtual videoconference encounter per patient's request. LABS: Hemoglobin (g/dL) Date Value 10/07/2024 12.2 01/02/2018 13.1 Hematocrit (%) Date Value 10/07/2024 33.8 01/02/2018 41.2 WBC (k/uL) Date Value 10/07/2024 3.88 01/02/2018 5.58 Glucose (mg/dL) Date Value 10/27/2024 86 01/02/2018 69 Potassium (mmol/L) Date Value 10/27/2024 4.4 01/02/2018 4.0 Sodium (mmol/L) Date Value 10/27/2024 129 01/02/2018 134 Chloride (mmol/L) Date Value 10/27/2024 95 01/02/2018 98 CO2 (mmol/L) Date Value 10/27/2024 21 01/02/2018 23 Creatinine (mg/dL) Date Value 10/27/2024 0.70 01/02/2018 0.71 BUN (mg/dL) Date Value 10/27/2024 8 01/02/2018 8 Anion Gap (mmol/L) Date Value 10/27/2024 13 01/02/2018 13 Calcium (mg/dL) Date Value 01/02/2018 9.6 Calcium, Total (mg/dL) Date Value 10/27/2024 10.1 Protein, Total (g/dL) Date Value 10/07/2024 7.1 01/02/2018 6.4 Albumin (g/dL) Date Value 10/27/2024 4.4 01/02/2018 4.3 Bilirubin, Total (mg/dL) Date Value 10/07/2024 0.5 01/02/2018 0.4 Alkaline Phosphatase (U/L) Date Value 10/07/2024 106 01/02/2018 59 AST (U/L) Date Value 10/07/2024 28 01/02/2018 29 ALT (U/L) Date Value 10/07/2024 33 01/02/2018 23 pH, Urine Date Value Ref Range Status 10/07/2024 8.0 <8.5 Final Specific [place], Ur Date Value Ref Range Status 10/07/2024 1.007 1.005 - 1.030 Final Glucose, Urine Date Value Ref Range Status 10/07/2024 Negative Negative Final Bilirubin, Urine Date Value Ref Range Status 10/07/2024 Negative Negative Final Ketones, Urine Date Value Ref Range Status 10/07/2024 Negative Negative Final Hemoglobin/Blood,Ur Date Value Ref Range Status 10/07/2024 Negative Negative Final Protein, Urine Date Value Ref Range Status 10/07/2024 Negative Negative Final Urobilinogen Date Value Ref Range Status 10/07/2024 0.2 EU/dL 0.2-1.0 EU/dL Final Nitrites Date Value Ref Range Status 10/07/2024 Negative Negative Final WBC, Urine Date Value Ref Range Status 10/07/2024 0-5 /HPF 0-5 /HPF Final ASSESSMENT: 54 y/o female with h/o depression, ex-smoker, GERD, intolerance to lisinopril (cough), intolerance to amlodipine (ankle edema), family h/o HTN (maternal grandmother, both parents, brother and sister); mild elevation of the blood pressure since 2022, and HTN diagnosed in 04/2024; who requested to undergo a virtual videoconference encounter for f/u of resistant HTN. Virtual videoconference encounter per patient's request. 1. Resistant hypertension - ICD9: 401.9, ICD10: I1A.0. Advised to follow low sodium diet. Blood pressure well controlled. Will continue losartan, spironolactone and doxazosin. PLAN: -Advised to follow a low sodium diet (brochure with instructions sent to the patient). -Avoid NSAIDs (Advil, Motrin, Ibuprofen, Naproxen, Aleve, Aspirin, Anacin, Diclofenac, Daypro, Mobic, Meloxicam, Sulindac, Clinoril, etc), and ARMENDARIZ-2 inhibitors (Celebrex, Celecoxib, etc). -Will continue current treatment. -Will update labs. -RTC in 6 months, virtual, with labs. Time spent in virtual videoconference contact with the patient, counseling and coordination of care over 25 minutes. Greater than 50% of the visit was spent with virtual videoconference face to face counselling, discussion of the above topics, and coordination of care. All questions answered. Thank you for allowing us to participate in her care. Ladarius Jones MD Staff Nephrology and Hypertension January 26, 2025 7:30 AM CC: Brandon Monet DO documented in this encounter [facility] 01-26-2025 Note HNO ID: [id number] Author: LADARIUS ARENAS MD Service: ? Author Type: Physician Type: Progress Notes Filed: 01/26/2025 11:09 Note Text: [facility] [place] NEPHROLOGY FOLLOW UP NOTE Patient Name: Isa Tovar CHIEF COMPLAINT: resistant HTN HPI: 54 y/o female with h/o depression, ex-smoker, GERD, intolerance to lisinopril (cough), intolerance to amlodipine (ankle edema), family h/o HTN (maternal grandmother, both parents, brother and sister); mild elevation of the blood pressure since 2022, and HTN diagnosed in 04/2024; who requested to undergo a virtual videoconference encounter for f/u of resistant HTN. I have communicated my name and active licensure. The patient's identity and physical location were verified at the time of this visit. Either the patient or their legal freight representative has been informed of the risks and benefits of -- and alternatives to -- treatment through a remote evaluation and consents to proceed with the evaluation remotely. Virtual videoconference encounter per patient's request. PAST MEDICAL HISTORY: PAST MEDICAL HISTORY Diagnosis Date Depression PAST SURGICAL HISTORY: PAST SURGICAL HISTORY Procedure Laterality Date COLONOSCOPY SCREENING 08/16/2022 repeat in 5 years, poor bowel prep EXCISION GANGLION WRIST DORSAL/VOLAR PRIMARY Right 08/30/2022 Excision ganglion cyst right wrist and open palmar fasciectomy HAND SURGERY HX Right Dr. Dougherty TONSILLECTOMY PRIMARY/SECONDARY Tonsillectomy VAGINAL HYSTERECTOMY UTERUS 250 GM/< 07/21/2008 Hysterectomy, vaginal FAMILY HISTORY: FAMILY HISTORY Problem Relation Age of Onset Hypertension Mother Hypertension Father Hypertension Maternal Grandmother Heart Maternal Grandmother Hypertension Sister Heart Brother congenital valve dx, valve replacement/repair No family h/o stroke. 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 MEDICATIONS: losartan (COZAAR) 100 mg tablet Take 1 tablet by mouth once daily. spironolactone (ALDACTONE) 25 mg tablet Take 1 tablet by mouth two times a day. doxazosin (CARDURA) 1 mg tablet Take 1 tablet by mouth daily at bedtime. FLUoxetine (PROZAC) 40 mg capsule Take 1 capsule by mouth two times a day. In addition to 20mg capsule for total of 60mg daily multivitamin tablet Take 1 tablet by mouth once daily. famotidine (PEPCID) 20 mg tablet Take 1 tablet by mouth at bedtime as needed. Mtyzbwh-Lwwwjbzcn-Oqzx tab Take by mouth. ALLERGIES: ALLERGIES Allergen Reactions Chlorthalidone Intolerance Hyponatremia and hypokalemia. Amlodipine Intolerance Pedal edema Lisinopril Cough ROS on 01/26/25: PAIN ASSESSMENT: Positive for headaches. She takes Tylenol as needed CONSTITUTIONAL: No snoring. Positive for lightheadedness and weakness. No malaise, fevers or chills. No falls HEENT: Positive for headaches. No hearing impairment NECK: no neck pain, mass or stiffness RESPIRATORY: Positive for coughing. Negative for hemoptysis, wheezing or shortness of breath CARDIOVASCULAR: Negative for chest pain, orthopnea, palpitations, or edema GASTROINTESTINAL: No nausea or vomiting. Negative for diarrhea. No hematemesis, hematochezia, melena or constipation GENITOURINARY: Negative for dysuria or hematuria SKIN: Negative for lesions, rash, and itching NEURO: Positive for headaches. No history of aphasia, dysarthria, syncope, paralysis, seizures or tremors MUSCULOSKELETAL: No joint swelling or back pain ENDOCRINE: No polydipsia or polyphagia HEMATOLOGIC: No bleeding. She bruises easily LYMPHATIC: No generalized lymphadenopathy IMMUNOLOGIC: She doesn't take the influenza vaccine or the CoVID-19 vaccine VITAL SIGNS: Virtual videoconference encounter per patient's request. Most recent vitals on record: Most Recent Value BP: 124/78 as of 10/14/2024 Weight: 68.8 kg (151 lb 9.6 oz) as of 10/14/2024 Pulse: 67 as of 10/14/2024 Temp: 36.9 ?C (98.5 ?F) as of 09/28/2024 SpO2: 98% as of 10/14/2024 Resp: 16 as of 09/28/2024 Body Mass Index: 23.74 kg/m? 170.2 cm (5' 7) as of 08/30/2022 68.8 kg (151 lb 9.6 oz) as of 10/14/2024 Temp Source: Left Tympanic as of 09/28/2024 Height: 170.2 cm (5' 7) as of 08/30/2022 PHYSICAL EXAM: GENERAL: Pleasant, adult female with BMI 23.68, alert, in no acute distress, cooperative, sitting at home SKIN: No facial rash HEENT: normocephalic, perrl, eomi, moist oral mucosa Virtual videoconference encounter per patient's request. LABS: Hemoglobin (g/dL) Date Value 10/07/2024 12.2 01/02/2018 13.1 (more content not included)... [facility] 10-29-2024 Telephone encounter Note Called patient via telephone. Patient advised recent results. Patient states she was un able to receive Urea medication due to cost (300$ copay). Patient states she is using OTC salt substitute, taking 1 tablet by mouth per day. Patient request if she should increase dose. Patient advised provider will be notified. [facility] 10-29-2024 Miscellaneous Notes Called patient via telephone. Patient advised recent results. Patient states she was un able to receive Urea medication due to cost (300$ copay). Patient states she is using OTC salt substitute, taking 1 tablet by mouth per day. Patient request if she should increase dose. Patient advised provider will be notified. documented in this encounter [facility] 10-19-2024 Telephone encounter Note Pt informed Bernadette Daily MA [facility] 10-19-2024 Miscellaneous Notes Pt informed Bernadette Daily MA Please call patient and let her know that urine culture was positive for UTI with E coli bacteria. Rx sent to pharmacy to start taking. The following approved medication requests have been transmitted electronically. Requested Prescriptions Signed Prescriptions Disp Refills nitrofurantoin monohydrate and macrocrystal (MACROBID) 100 mg capsule 10 capsule 0 Sig: Take 1 capsule by mouth two times a day for 5 days. Iza Simms APRN.SCREEN PRINTER HELPER documented in this encounter [facility] 10-19-2024 Note Patient Outreach (FA MPWS) ISA TOVAR ([id number]) 1970 F Date Time Provider Department 10/19/24 BRANDON MONET During your visit today, we recorded the following information about you: Allergies As of Date: 10/19/2024 Noted Allergy Reaction CHLORTHALIDONE 10/12/2024 5 - Intolerance Comments: Hyponatremia and hypokalemia. AMLODIPINE 07/29/2024 5 - Intolerance Comments: Pedal edema LISINOPRIL 06/02/2024 3 - Cough Date Reviewed: 10/14/2024 Reviewed by: Iza Simms APRN.SCREEN PRINTER HELPER - Fully Assessed Visit Diagnosis:Encounter for screening mammogram for breast cancer [Z12.31] Order(s):[facility] SCREENING [facility] SUZANNE [[id number]] Order #: [id number] FUTURE Prescriptions as of 11/19/2024 - losartan (COZAAR) 100 mg tablet Take 1 tablet by mouth once daily. - spironolactone (ALDACTONE) 25 mg tablet Take 1 tablet by mouth two times a day. - doxazosin (CARDURA) 1 mg tablet Take 1 tablet by mouth daily at bedtime. - FLUoxetine (PROZAC) 40 mg capsule Take 1 capsule by mouth two times a day. In addition to 20mg capsule for total of 60mg daily - multivitamin tablet Take 1 tablet by mouth once daily. - famotidine (PEPCID) 20 mg tablet Take 1 tablet by mouth at bedtime as needed. - Uuuiyyq-Llltvokia-Qzzl tab Take by mouth. Problem List As Of Date 10/19/2024 Noted Resolved Dysthymia [F34.1] 08/23/2015 Well adult exam [Z00.00] 08/23/2015 Acid reflux [K21.9] 08/20/2022 Resistant hypertension [I1A.0] 10/06/2024 Encounter Status:Closed by VIRAJ BYRD on 11/19/24 [facility] 10-18-2024 Telephone encounter Note Please call patient and let her know that urine culture was positive for UTI with E coli bacteria. Rx sent to pharmacy to start taking. The following approved medication requests have been transmitted electronically. Requested Prescriptions Signed Prescriptions Disp Refills nitrofurantoin monohydrate and macrocrystal (MACROBID) 100 mg capsule 10 capsule 0 Sig: Take 1 capsule by mouth two times a day for 5 days. Iza Simms APRN.CNP [facility] 10-14-2024 Note HNO ID: [id number] Author: LADARIUS ARENAS MD Service: ? Author Type: Physician Type: Progress Notes Filed: 10/14/2024 14:09 Note Text: The blood test is showing there is decreased serum sodium (likely due to water retention from fluoxetine). Will start Ure-Na (urea powder) 30 grams dissolved in a glass of water and taken by mouth once a day (sent to [facility] [address], [place]). Normal potassium (improved). Will repeat a renal panel in 2 weeks. [facility] [place] Ladarius Mayer MD Staff Nephrology and Hypertension [facility] Pager# [phone] [facility] 10-14-2024 History of Presen t illness Narrative The blood test is showing there is decreased serum sodium (likely due to water retention from fluoxetine). Will start Ure-Na (urea powder) 30 grams dissolved in a glass of water and taken by mouth once a day (sent to [facility] [address] on [employer] [place], [place]). Normal potassium (improved). Will repeat a renal panel in 2 weeks. [facility] [place] Ladarius Mayer MD Staff Nephrology and Hypertension [facility] Pager# [phone] documented in this encounter [facility] 10-14-2024 Note HNO ID: [id number] Author: SIMMS, IZA, FEED RESEARCH AIDE.SCREEN PRINTER HELPER Service: ? Author Type: Nurse Practitioner Type: Progress Notes Filed: 10/14/2024 13:58 Note Text: 10/14/2024 The patient consented to the use of [employer] software for draft documentation of the visit consistent with [facility]?s Notice of Privacy Practices. Isa is a 54-year-old female with a history of HTN, presenting for a BP check and follow-up after a recent hospitalization. Hypertension: - Recent medication changes by nephrology include initiation of spironolactone and discontinuiation of chlorthalidone. Also added on Cardura. Continued on Losartan 100 mg. - Home BP readings consistently below 130 mmHg since hospital discharge. - No known cause for previous resistance to antihypertensive medications. - Scheduled follow-up with nephrology on January 26. - Requests refill for losartan. Hospitalization Follow-Up: - Admitted on the due to low sodium and potassium levels. [employer] sent her to ER after getting lab work results. - Recent medication adjustments by nephrology included increasing chlorthalidone to 50 mg, which led to electrolyte imbalances. - [employer] advised discontinuing chlorthalidone and initiated spironolactone. - Reports headaches since hospital discharge; advised to increase electrolyte intake. - Recent lab work shows improved potassium levels; sodium still low but not critically. - No edema in lower extremities. UTI/Yeast Infection Symptoms: - Reports sensation of tickle at the end of urination. - Increased urinary frequency at night. - Recent antibiotic use for persistent cough. - No pruritus, dysuria, or abnormal vaginal discharge. PAST MEDICAL HISTORY Diagnosis Date Depression Current Outpatient Medications on File Prior to Visit Medication Sig spironolactone (ALDACTONE) 25 mg tablet Take 1 tablet by mouth two times a day. doxazosin (CARDURA) 1 mg tablet Take 1 tablet by mouth daily at bedtime. FLUoxetine (PROZAC) 40 mg capsule Take 1 capsule by mouth two times a day. In addition to 20mg capsule for total of 60mg daily multivitamin tablet Take 1 tablet by mouth once daily. famotidine (PEPCID) 20 mg tablet Take 1 tablet by mouth at bedtime as needed. Uxvyjrf-Kberrnoqq-Pxis tab Take by mouth. No current facility-administered medications on file prior to visit. Head: (+) headaches Genitourinary: (+) urinary frequency (nighttime), (-) dysuria, (-) vaginal pruritus, (-) vaginal discharge BP 124/78 (BP Site: Left Arm, BP Position: Sitting, BP Cuff Size: Regular Adult) Pulse 67 Wt 68.8 kg (151 lb 9.6 oz) SpO2 98% BMI 23.74 kg/m? GENERAL: NAD, alert and oriented. SKIN: Unremarkable, no rash or skin lesions. HEAD: Normocephalic. LUNGS: Clear to auscultation bilaterally, no wheezes/rhonchi/rales. HEART: Regular rate and rhythm, no murmurs. No ectopy. EXTREMITIES: Normal, no deformities, no skin discoloration, no edema. Labs: - Serum Electrolytes: - Sodium: 126 mmol/L (low) - Potassium: within normal limits - Serum Electrolytes: - Sodium: 117 mmol/L (low) - Potassium: low (exact value not provided) - Hormonal Laboratory Testing: No abnormalities noted 1. Dysuria (R30.0) 2. Urinary urgency (R39.15) - Symptoms likely secondary to recent antibiotic use. UTI vs yeast infection. - Ordered urinalysis; if signs of infection are present, will prescribe an antibiotic. UA + for small amount of blood and trace leuks. Will send for culture but treat for yeast infection. - Prescribed Diflucan: Take 1 tablet orally; if symptoms persist after 3 days, take 1 additional tablet. 3. Primary hypertension (I10) - Previously resistant to antihypertensive therapy; now well-controlled with current regimen. - Recent addition of spironolactone by nephrology has stabilized blood pressure readings to <130 mmHg systolic. - Discontinued chlorthalidone 50 mg; reduced to 25 mg before starting spironolactone. - Refill for losartan sent to [facility] for a 90-day supply. - Advised to monitor blood pressure at home a few times a week. 4. Hyponatremia (E87.1) - Recent lab results show sodium level at 126 mEq/L, improved from 117 mEq/L. - Advised to increase hydration with electrolyte-rich fluids rather than plain water. - Will continue to monitor sodium levels; repeat labs if headaches persist. 5. Nonintractable episodic headache, unspecified headache type (R51.9) - Likely related to recent hyponatremia and changes in blood pressure. - Advised increased hydration with electrolytes to address potential dehydration. - Monitor symptoms; if no improvement by next week, will consider further evaluation. 6. Yeast infection (B37.9) - Prescribed Diflucan as above. 7. Hospital discharge follow-up (Z09) - Reviewed discharge summary from recent hospitalization on the for hyponatremia and hypokalemia. - No current edema or respiratory issues noted on ex (more content not included)... [facility] 10-14-2024 History of Presen t illness Narrative 10/14/2024 The patient consented to the use of [employer] software for draft documentation of the visit consistent with [facility] s Notice of Privacy Practices. Isa is a 54-year-old female with a history of HTN, presenting for a BP check and follow-up after a recent hospitalization. Hypertension: - Recent medication changes by nephrology include initiation of spironolactone and discontinuiation of chlorthalidone. Also added on Cardura. Continued on Losartan 100 mg. - Home BP readings consistently below 130 mmHg since hospital discharge. - No known cause for previous resistance to antihypertensive medications. - Scheduled follow-up with nephrology on January 26. - Requests refill for losartan. Hospitalization Follow-Up: - Admitted on the due to low sodium and potassium levels. [employer] sent her to ER after getting lab work results. - Recent medication adjustments by nephrology included increasing chlorthalidone to 50 mg, which led to electrolyte imbalances. - [employer] advised discontinuing chlorthalidone and initiated spironolactone. - Reports headaches since hospital discharge; advised to increase electrolyte intake. - Recent lab work shows improved potassium levels; sodium still low but not critically. - No edema in lower extremities. UTI/Yeast Infection Symptoms: - Reports sensation of tickle at the end of urination. - Increased urinary frequency at night. - Recent antibiotic use for persistent cough. - No pruritus, dysuria, or abnormal vaginal discharge. PAST MEDICAL HISTORY Diagnosis Date Depression Current Outpatient Medications on File Prior to Visit Medication Sig spironolactone (ALDACTONE) 25 mg tablet Take 1 tablet by mouth two times a day. doxazosin (CARDURA) 1 mg tablet Take 1 tablet by mouth daily at bedtime. FLUoxetine (PROZAC) 40 mg capsule Take 1 capsule by mouth two times a day. In addition to 20mg capsule for total of 60mg daily multivitamin tablet Take 1 tablet by mouth once daily. famotidine (PEPCID) 20 mg tablet Take 1 tablet by mouth at bedtime as needed. Mzccany-Rvopzutfe-Ggkz tab Take by mouth. No current facility-administered medications on file prior to visit. Head: (+) headaches Genitourinary: (+) urinary frequency (nighttime), (-) dysuria, (-) vaginal pruritus, (-) vaginal discharge BP 124/78 (BP Site: Left Arm, BP Position: Sitting, BP Cuff Size: Regular Adult) Pulse 67 Wt 68.8 kg (151 lb 9.6 oz) SpO2 98% BMI 23.74 kg/m GENERAL: NAD, alert and oriented. SKIN: Unremarkable, no rash or skin lesions. HEAD: Normocephalic. LUNGS: Clear to auscultation bilaterally, no wheezes/rhonchi/rales. HEART: Regular rate and rhythm, no murmurs. No ectopy. EXTREMITIES: Normal, no deformities, no skin discoloration, no edema. Labs: - Serum Electrolytes: - Sodium: 126 mmol/L (low) - Potassium: within normal limits - Serum Electrolytes: - Sodium: 117 mmol/L (low) - Potassium: low (exact value not provided) - Hormonal Laboratory Testing: No abnormalities noted 1. Dysuria (R30.0) 2. Urinary urgency (R39.15) - Symptoms likely secondary to recent antibiotic use. UTI vs yeast infection. - Ordered urinalysis; if signs of infection are present, will prescribe an antibiotic. UA + for small amount of blood and trace leuks. Will send for culture but treat for yeast infection. - Prescribed Diflucan: Take 1 tablet orally; if symptoms persist after 3 days, take 1 additional tablet. 3. Primary hypertension (I10) - Previously resistant to antihypertensive therapy; now well-controlled with current regimen. - Recent addition of spironolactone by nephrology has stabilized blood pressure readings to <130 mmHg systolic. - Discontinued chlorthalidone 50 mg; reduced to 25 mg before starting spironolactone. - Refill for losartan sent to [facility] for a 90-day supply. - Advised to monitor blood pressure at home a few times a week. 4. Hyponatremia (E87.1) - Recent lab results show sodium level at 126 mEq/L, improved from 117 mEq/L. - Advised to increase hydration with electrolyte-rich fluids rather than plain water. - Will continue to monitor sodium levels; repeat labs if headaches persist. 5. Nonintractable episodic headache, unspecified headache type (R51.9) - Likely related to recent hyponatremia and changes in blood pressure. - Advised increased hydration with electrolytes to address potential dehydration. - Monitor symptoms; if no improvement by next week, will consider further evaluation. 6. Yeast infection (B37.9) - Prescribed Diflucan as above. 7. Hospital discharge follow-up (Z09) - Reviewed discharge summary from recent hospitalization on the for hyponatremia and hypokalemia. - No current edema or respiratory issues noted on exam. - Follow-up with nephrology scheduled for January 26. RTO in 3 months for routine physical and PAP. The patient indicates understanding of these issues and agrees with the plan. Iza Simms APRN.SCREEN PRINTER HELPER documented in this encounter [facility] 10-12-2024 Telephone encounter Note Images from the original note were not included. I returned the patient's call. She was hospitalized at [facility] for 24 hours and received 1 liter of NSS IV with her serum sodium improving to 125 and she got IV potassium replacement every 6 hours. Chlorthalidone was stopped. Her blood pressure at home is better (SBP 106 to 138). Will get order repeat labs. [facility] [place] Ladarius Mayer MD Staff Nephrology and Hypertension [facility] Pager# [phone] [facility] 10-12-2024 Miscellaneous Notes Images from the original note were not included. I returned the patient's call. She was hospitalized at [facility] for 24 hours and received 1 liter of NSS IV with her serum sodium improving to 125 and she got IV potassium replacement every 6 hours. Chlorthalidone was stopped. Her blood pressure at home is better (SBP 106 to 138). Will get order repeat labs. [facility] [place] Ladarius Mayer MD Staff Nephrology and Hypertension [facility] Pager# [phone] documented in this encounter [facility] 10-09-2024 Note [facility] Medical Records Department [address] [place] [address] Discharge Summary 10/09/24 1425 MR#: [id number] Acct: [id number] Name: ISA TOVAR Rep #: [id number] : 1970 54 From: Mitchell Tobias MD PCP: Dr. Brandon Monet DO Status:DIS IN Location: [place] [address] Providers Date of Admission: 10/08/24 Primary Care Physician: Dr. Brandon Monet DO Reason For Visit: HYPO NATREMIA AND HYPOKALEMIA Diagnosis Discharge Diagnosis (1) Acute hyponatremia: Status: Acute Code(s): E87.1 - Hypo-osmolality and hyponatremia (2) Acute hypokalemia: Status: Acute Code(s): E87.6 - Hypokalemia (3) Hypertension: Status: Chronic Code(s): I10 - Essential (primary) hypertension Medications at Discharge Home Medications fluoxetine 40 mg capsule 40 mg PO DAILY 05/30/24 artifi.tears(hypromellose)(PF) 1.7 % eye drops with applicator 1 drp EACH EYE DAILY PRN dry eye(s) 10/08/24 htgcjio-dgertymmg-lbzs 333 mg-133 mg-5 mg tablet 3 tab PO BID 10/08/24 doxazosin 1 mg tablet 1 mg PO QHS 10/08/24 famotidine 20 mg tablet (Acid Controller) 20 mg PO BID 10/08/24 losartan 100 mg tablet 100 mg PO DAILY 10/08/24 spironolactone 25 mg tablet 25 mg PO BID 10/08/24 Hospital Course Operations None Procedures None Summary of Care Provided Minutes Spent on Discharge: 32 Hospital Course: Per HPI: ISA TOVAR, is a 54 F who presented to [facility] ED on 10/08/2024 with abnormal outpatient labs. Patient was found on BMP to have a sodium of 117 and potassium of 2.5. Last sodium was 134 on 08/07/24, has no prior history of hyponatremia. Patient has been following with nephrology since April for resistant hypertension. Secondary hypertension workup has been negative. She has had several medication changes since April. She was recently started on chlorthalidone 25 mg daily in early to mid August, and dose was then up to 50 mg daily in early September. She reports lightheadedness with mental fogginess and headache over the past few weeks. Today she feels similar to previous days but she is alert and oriented x 3 and conversing normally. Given no acute mental status change noted, she was given 1 L of normal saline and potassium supplementation, and hospitalist was contacted for admission. I saw the patient at bedside in the ED. Patient was very pleasant and sitting back comfortably in bed, conversing normally and in no acute distress. She stated that she felt slightly better after receiving the IV fluids earlier. She otherwise feels well, denies any acute pain or discomfort. No other acute concerns at this time. Hospital Course: 1. Severe hyponatremia secondary to chlorthalidone???54-year-old female presented to the hospital with severe hyponatremia and lightheadedness and fogginess. Today she feels much better as her sodium is now 125, on admission it was down to 117. Her labs support hyponatremia due to diuretic therapy therefore this medication was held and discontinued on discharge. I discussed with her the possibility for discharge today and she expressed understanding of the risks benefits going home and would still like to go home today. Blood pressures have remained normal to low therefore no medication adjustments were made on discharge, she is still on losartan, doxazosin and Aldactone. I do anticipate normalization of her sodium in the next day or 2 with appropriate p.o. intake. I discussed with her the need to follow-up with her PCP in 3 to 5 days for outpatient monitoring of her labs. 2. Resistant hypertension, depression, GERD are chronic medical conditions which complicate her care. Her home medications were continued where appropriate Physical Exam Narrative General: Alert, Oriented x3, Cooperative, No apparent distress HEENT: Atraumatic, PERRLA, EOMI, Normocephalic Oral: Moist Mucosa Neck: Supple, No JVD Lungs: Clear to auscultation, Normal air movement, No rhonchi, No wheeze, No rales Cardiovascular: Regular rate, Regular Rhythm, Normal S1, Normal S2, No murmurs Abdomen: Soft, Non Tender, Non-Distended, No Hepato-splenomegaly Extremities: No edema, Capillary Refill Less than 3 Seconds Skin: No rashes, No breakdown Musculoskeletal: No Tenderness to Palpation of Joints or Extremities Neurological: No focal neurological deficits, Motor Exam 5/5 strength throughout, Sensory exam intact to light touch and pain Psych/Mental Status: Normal Affect, Appropriate Weight / BMI Weight Weight: 149 lb 4.047 oz Body Mass Index (BMI) 23.3 ABG / Lab / Microbiology Data 10/09/24 06:18 10/09/24 06:18 Laboratory: Laboratory Results - last 24 hr 10/08/24 14:01: Urine RBC 0-5 SEEN, Urine WBC 0-5 SEEN, Ur Squamous Epith Cells 0-5 SEEN, Urine Bacteria 0 SEEN, Urine Mucus 0 SEEN, Urine Osmolality 138, Ur Random Sodium 3 (more content not included)... [facility] 10-09-2024 Discharge summary Note Date/Time October 09, 2024 10:35am [facility] Medical Records Department [address] [place] [address] Instructions for Home/Discharge Instructions 10/09/24 1030 MR#: [id number] Acct: [id number] Name: ISA TOVAR Rep #:[id number] : 1970 54 From: Mitchell de guzman MD PCP: Dr. Brandon Monet, DO Status:AD M IN Discharge Instructions Diet Discharge Diet: Low fat / Low cholesterol DC O2, CPAP, BIPAP needs Home O2 Discharge instructions: No Dressing / Incision Discharge Activity: Return to Normal Activity Dressing / Incision Call your doctor if you observe: Fever of 101 or Higher, Shortness of breath, Dizziness, Fainting spells, Swelling in the ankles, Chest pain and Increased palpitations (irregular heartbeat) Follow Up Care Test Results: Test results from this visit will be discussed in further detail at your follow-up appointment, if applicable. Discharge Plan Admission Admit Date/Time: 10/08/24 15:00 Attending Provider: Mitchell Tobias Primary Care Provider: Brandon Monet Consulting Providers: Jonathan Brasher Instructions Patient Instructions: ED Hyponatremia Additional Instructions / Restrictions: Follow-up with your primary care doctor in 3 to 5 days to monitor your blood pressure in order a BMP to monitor your sodium levels. We did stop your chlorthalidone which is likely the cause of your low sodium level. Discharge Orders/Prescriptions Prescriptions: Continued fluoxetine 40 mg capsule 40 mg PO DAILY doxazosin 1 mg tablet 1 mg PO QHS spironolactone 25 mg tablet 25 mg PO BID losartan 100 mg tablet 100 mg PO DAILY famotidine [Acid Controller] 20 mg tablet 20 mg PO BID ytktjaf-sdswptyut-cilz 333-133-5 mg tablet 3 tab PO BID artifi.tears(hypromellose)(PF) 1.7 % drops with applicator 1 drp EACH EYE DAILY PRN (Reason: dry eye(s)) Discontinued chlorthalidone 25 mg tablet 25 mg PO DAILY Patient Comments: PT ER DR TOLD TO STOP Referrals / Follow Up: Brandon Monet DO [Primary Care Provider] - Within 1 Week Disposition Disposition (needs filled in before D/C Order can be placed): Home, Self Care 10/09/24 1035<Electronically signed by Mitchell Tobias MD>Mitchell Tobias MD CC: Dr. Jonathan Brasher DO; Dr. Brandon Monet DO ~ Signed [facility] Work Phone: [phone]) 796-270803-22-2025 Discharge summary [facility] Medical Records Department [address] [place] [id number] Instructions for Home/Discharge Instructions 10/09/24 1030 MR#: [id number] Acct: [id number] Name: ISA TOVAR Rep #:[id number] : 1970 54 From: Mitchell de guzman MD PCP: Dr. Brandon Monet DO Status:AD M IN Discharge Instructions Diet Discharge Diet: Low fat / Low cholesterol DC O2, CPAP, BIPAP needs Home O2 Discharge instructions: No Dressing / Incision Discharge Activity: Return to Normal Activity Dressing / Incision Call your doctor if you observe: Fever of 101 or Higher, Shortness of breath, Dizziness, Fainting spells, Swelling in the ankles, Chest pain and Increased palpitations (irregular heartbeat) Follow Up Care Test Results: Test results from this visit will be discussed in further detail at your follow- up appointment, if applicable. Discharge Plan Admission Admit Date/Time: 10/08/24 15:00 Attending Provider: Mitchell Tobias Primary Care Provider: Brandon Monet Consulting Providers: Jonathan Brasher Instructions Patient Instructions: ED Hyponatremia Additional Instructions / Restrictions: Follow-up with your primary care doctor in 3 to 5 days to monitor your blood pressure in order a BMP to monitor your sodium levels. We did stop your chlorthalidone which is likely the cause of your low sodium level. Discharge Orders/Prescriptions Prescriptions: Continued fluoxetine 40 mg capsule 40 mg PO DAILY doxazosin 1 mg tablet 1 mg PO QHS spironolactone 25 mg tablet 25 mg PO BID losartan 100 mg tablet 100 mg PO DAILY famotidine [Acid Controller] 20 mg tablet 20 mg PO BID asnlqem-pjbmeypes-tzrw 333-133-5 mg tablet 3 tab PO BID artifi.tears(hypromellose)(PF) 1.7 % drops with applicator 1 drp EACH EYE DAILY PRN (Reason: dry eye(s)) Discontinued chlorthalidone 25 mg tablet 25 mg PO DAILY Patient Comments: PT ER DR TOLD TO STOP Referrals / Follow Up: Brandon Monet DO [Primary Care Provider] - Within 1 Week Disposition Disposition (needs filled in before D/C Order can be placed): Home, Self Care 10/09/24 1035Nickelli Tobias MD CC: Dr. Jonathan Brasher DO; Dr. Brandon Monet DO ~ Signed [facility]03-21-2025 History and physical note Author Jonathan Brasher [facility] Note Date/Time October 08, 2024 4:[address] [facility] Medical Records Department [address] [place] [id number] H&P Exam - Hospitalist 10/08/24 1458 MR#: [id number] Acct: [id number] Name: ISA TOVAR Rep #:[id number] : 1970 54 From: Jonathan hanks DO PCP: Dr. Brandon Monet DO Status:AD M IN Location: [facility] [id number] HPI - General General Date of Admission: 10/08/24 Date of Service: 10/08/24 Chief Complaint: Abnormal labs HPI Narrative ISA LA, is a 54 F who presented to [facility] ED on 10/08/2024 with abnormal outpatient labs. Patient was found on BMP to have a sodium of 117 and potassium of 2.5. Last sodium was 134 on 08/07/24, has no prior history of hyponatremia. Patient has been following with nephrology sinceApril for resistant hypertension. Secondary hypertension workup has been negative. She has had several medication changes since April. She was recently started on chlorthalidone 25 mg daily in early to mid August, and dose was then up to 50 mg daily in early September. She reports lightheadedness with mental fogginess and headache over the past few weeks. Today she feels similar to previous days but she is alert and oriented x 3 and conversing normally. Given no acute mental status change noted, she was given 1 L of normal saline and potassium supplementation, and hospitalist was contacted for admission. I saw the patient at bedside in the ED. Patient was very pleasant and sitting back comfortably in bed, conversing normally and in no acute distress. She stated that she felt slightly better after receiving the IV fluids earlier. Sheotherwise feels well, denies any acute pain or discomfort. No other acute concerns at this time. [facility] Medical History (Updated 10/08/24 @ 16:[address] Jonathan Brasher, DO) Hypertension Medical History no medical history Home Medications ?Medication ?Instructions ?Recorded ?Last Taken ?Type fluoxetine 40 mg capsule 40 mg PO DAILY 05/30/2409/19 History artifi.tears(hypromellose)(PF) 1.7 1 drp EACH EYE SID Y PRN dry eye(s) 10/08/24 10/08/24 History % eye drops with applicator abboxpw-abedasuec-nvni 333 mg-133 3 tab PO BID 5 10/08/24 History mg-5 mg tablet chlorthalidone 25 mg tablet 25 mg PO DAILY 10/08/24 History doxazosin 1 mg tablet 1 mg PO QHS 10/08/24 5 History famotidine 20 mg tablet (Acid 20 mg PO BID 10/08/24 History Controller) losartan 100 mg tablet 100 mg PO DAILY 10/08/24 History spironolactone 25 mg tablet 25 mg PO BID 10/08/2409/19 History Allergy/AdvReac Type Severity Reaction Status Date / Time amlodipine AdvReac Intermediate edema Verified 10/08/24 12:43 lisinopril AdvReac Mild cough Verified 10/08/24 12:43 Family History no significant family his Surgical History (Updated 08/07/24 @ 18:32 by Lalita Winchester) H/O: hysterectomy Surgical History no surgical history Social History Smoking Status: Never smoker ROS Constitutional Constitutional: Denies chills, fatigue, fever(s) or weakness Eyes Eyes: Denies change in vision Cardiovascular Cardiovascular: Denies chest pain Respiratory/Chest Respiratory/Chest: Denies cough or shortness of breath at rest Gastrointestinal Gastrointestinal: Denies abdominal pain, constipation, diarrhea, nausea or vomiting Genitourinary Genitourinary: Denies dysuria Musculoskeletal Musculoskeletal: Denies arthralgias or myalgias Neurologic Neurologic: Reports headache(s); Denies dizziness Vital Signs Vital Signs Vital Signs: 10/08/24 12:43 10/08/24 13:41 10/08/24 13:58 Temperature 96.8 F L Temperature Source Temporal Pulse Rate 80 70 Respiratory Rate 18 16 Respiratory Pattern Normal Blood Pressure 147/94 H 144/75 H Blood Pressure Mean 111 98 Pulse Ox 98 98 Oxygen Delivery Method Room Air Room Air 10/08/24 14:00 Temperature Temperature Source Pulse Rate 72 Respiratory Rate 11 L Respiratory Pattern Blood Pressure Blood Pressure Mean Pulse Ox 98 Oxygen Delivery Method Weight Weight: 67.948 kg Body Mass Index (BMI) 23.4 Physical Exam Const alert, oriented x3, no apparent distress, average body habitus, healthy appearing and well nourished Constitutional Narrative: Pleasant middle-age female, sitting back comfortably in bed, conversing normally, in no acute distress. General Appearance: cooperative, comfortable, well kempt and well developed HEENT normocephalic, head/scalp atraumatic, hearing grossly normal bilaterally, nasal mucous membranes and turbinates normal and moist oral mucous membranes Eyes PERRL, EOMs intact bilaterally and conjunctivae normal Neck full ROM Chest inspection of chest normal Resp normal respiratory effort, normal air movement, no use of accessory muscles and clear to auscultation bilaterally Cardio regular rate, regular rhythm, no murmurs and peripheral pulses 2+ throughout GI normal to inspection, nondistended, normoactive bowel sounds, soft to palpation,non-tender and non-distended Back/Spine normal ROM Extremity normal to inspection, full ROM and no pedal edema Skin no rashes or lesions noted Neuro moves all extremities and no focal motor deficits Speech: speech normal Motor Exam: strength 5/5 throughout Psych mental status grossly normal Results Lab / Micro Data 10/08/24 14:03 10/08/24 14:03 Labs: Laboratory Results - last 24 hr 10/08/24 14:01: Urine Color Yellow, Urine Clarity Clear, Urine pH 8.0, Ur Specific [place] 1.010, Urine Protein Negative, Urine Glucose (UA) Normal, UrineKetones Negative, Urine Occult Blood Negative, Urine Nitrite Negative, Urine Bilirubin Negative, Urine Urobilinogen Normal, Ur Leukocyte Esterase Negative, Urine RBC 0-5 SEEN, Urine WBC 0-5 SEEN, Ur Squamous Epith Cells 0-5 SEEN, Urine Bacteria 0 SEEN, Urine Mucus 0 SEEN 10/08/24 14:03: WBC 4.8, RBC 3.79 L, Hgb 12.4, Hct 33.4 L, MCV 88.1, MCH 32.7 H,MCHC 37.1 H, RDW Std Deviation 36.2, RDW Coeff of Mehran 11.3 L, Plt Count 297, MPV8.7, Immature Gran % (Auto) 0.400, Neut % (Auto) 64.1, Lymph % (Auto) 25.9, [place]% (Auto) 7.1, Eos % (Auto) 1.9, Baso % (Auto) 0.6, Absolute Neuts (auto) 3.1, Absolute Lymphs (auto) 1.24, Nucleated RBC % 0, Sodium 117 L*, Potassium 2.5 L*,Chloride 78 L, Carbon Dioxide 25.6, Anion Gap 13, BUN 8, Creatinine 0.66 L, Estim Creat Clear Calc 94.76, Est GFR (MDRD) Non-Af 104, BUN/Creatinine Ratio 12.2, Glucose 106 H, Calcium 10.1, Magnesium 2.1 Imaging Radiology Impression Chest X-Ray 10/08/24 14:15 IMPRESSION: No acute cardiopulmonary process. Reading Location: [facility] Assessment & Plan Assessment/Plan (1) Acute hyponatremia: (2) Acute hypokalemia: (3) Hypertension: PLAN: Plan Patient is a 54-year-old female who presented to [facility] ED on 10/08/2024 with abnormal outpatient labs. 1. Severe hyponatremia ? Admit under patient status to PCU. Sodium 117, chloride 78 on admit. Baseline sodium around 135. No acute mental status change noted, no need for hypertonic saline. Strongly suspect this is secondary to chlorthalidone that was started a little over 1 month ago. Urine sodium, urine osmolality and serumosmolality ordered for further evaluation. Has been on her SSRI for 10 to 15 years and there are no other clear medications that would cause this degree of hyponatremia. Given 1 L of normal saline in the ED. Will recheck sodium levelsevery 6 hours through tomorrow morning with goal sodium 123-125 tomorrow morning. 1500 mL fluid restriction. Can consider nephrology consult as needed. 2. Hypokalemia ? Potassium 2.5 on admit. Magnesium normal. Phosphorus pending. Presume secondary to chlorthalidone as well. Will replete as needed. 3. Resistant hypertension ? Follows with outpatient nephrology has been seeing them since April 2024 forhypertension. Last virtual visit was on 10/06 and I reviewed this note in [facility]. Workup for secondary hypertension was negative. Has strong family history of hypertension. Previously intolerant to lisinopril (cough) and amlodipine (ankle swelling). Clonidine recently stopped as patient had intermittent nonadherence. Was on chlorthalidone 50 mg daily, losartan 100 mg daily and clonidine 0.1 mg twice daily until 10/06. Clonidine was stopped, chlorthalidone was lowered to 25 mg daily and both spironolactone 25 mg twice daily and doxazosin 1 mg at night were added. Chlorthalidone discontinued and should not be represcribed given her severe hyponatremia presumed secondary to this. While here will treat with losartan 100 mg daily, spironolactone 25 mg twice daily and doxazosin 1 mg at night. Will need close outpatient follow-up with nephrology after discharge. 4. Depression ? Has been on sertraline for 10 to 15 years, very low concern that this contributed to her hyponatremia. Continue home sertraline. 5. GERD ? Continue home Pepcid. DVT prophylaxis: Lovenox CODE STATUS: Full code, verified Expected disposition: Home, 2 to 3 days Total clinical time spent by myself addressing the patient's medical issues, reviewing all the data, and collaborating with patient's care team: 55 minutes. Charges/Coding Visit Charges Inpatient E&M: 26450 Init Hosp L2 10/08/24 1620 <Electronically signed by Jonathan Brasher DO> Cosigner Signature (if applicable): CC: Dr. Jonathan Brasher DO; Dr. Brandon Monet DO~ Signed [facility] Work Phone: 1([phone]) 985-409203-21-2025 Discharge summary Author Iftikhar Mendoza [facility] Note Date/Time October 08, 2024 3:[address] [facility] Medical Records Department [address] [place] [address] Emergency Department Summary 10/08/24 MR#: [id number] Acct: [id number] Name: ISA TOVAR Rep #:[id number] : 1970 54 From: Iftikhar Mendoza DO PCP: Dr. Brandon Monet DO Status:AD M IN Location: [address] History of Present Illness Chief Complaint: Abn Labs Detail of Chief Complaint: Abnormal labs Narrative Narrative: Patient presents to the emergency department complaint of abnormal labs today. Patient states that she has been dealing with elevated blood pressure since April. She was referred to a sample sawyer whom she had a virtual visit with 2days ago. She had lab workup ordered which she had drawn yesterday and today she was called and told to come to the ER because her potassium and her sodium were low. Patient describes feeling generally weak. She has had a cough for some time for which she was recently treated with Tessalon Perles and Augmentin. She is currently on chlorthalidone and started spironolactone and doxazosin yesterday. Patient also takes losartan 100 mg daily. Denies diarrhea. She states that her cough sometimes causes her to vomit [facility] Medical History (Updated 10/08/24 @ 14:[address] Iftikhar Mendoza DO) Hypertension Medical History no medical history Home Medications ?Medication ?Instructions ?Recorded ?Last Taken ?Type fluoxetine 40 mg capsule 40 mg PO DAILY 05/30/24 Unkn own History clonidine HCl 0.1 mg tablet 0.1 mg PO Q8H PRN hyperten josselin 2 08/07/24 Unknown Rx days #6 tabs losartan 50 mg tablet 50 mg PO DAILY 08/07/24 Unkn own History Allergy/AdvReac Type Severity Reaction Status Date / Time amlodipine AdvReac Intermediate edema Verified 10/08/24 12:43 lisinopril AdvReac Mild cough Verified 10/08/24 12:43 Family History no significant family his Surgical History (Updated 08/07/24 @ 18:32 by Lalita Winchester) H/O: hysterectomy Surgical History no surgical history Social History Smoking Status: Never smoker ROS ROS ED Review of Systems ROS Unobtainable: other Constitutional Constitutional ED: Reports lethargy; Denies chills, fever(s), sweats or weight loss Eyes Eyes: Denies blurry vision, change in vision or diplopia ENT ENT ED: Denies rhinorrhea or sore throat Cardiovascular Cardiovascular: Denies chest pain, orthopnea or racing heartbeat Respiratory/Chest Respiratory/Chest: Reports cough; Denies dyspnea, dyspnea on exertion, orthopneaor sputum Gastrointestinal Gastrointestinal: Denies abdominal pain, diarrhea, nausea or vomiting Genitourinary Genitourinary ED: Denies dysuria, hematuria or urinary frequency Musculoskeletal Musculoskeletal: Denies arthralgias, back pain, myalgias or neck pain Integumentary Denies abscess, Abrasions or rash Neurologic Neurologic: Reports weakness; Denies headache(s) Psychiatric Psychiatric: Denies anxiety, depression or suicidal thoughts Endocrine Endocrinology: Denies polydipsia, polyphagia or polyuria Hematologic/Lymphatic Hematologic/Lymphatic: Denies easy bleeding, easy bruising or lymphadenopathy Allergic/Immunologic Allergic/Immunologic ED: Denies mouth swelling, tongue swelling or urticaria EXAM Physical Exam Const Vital Signs: 10/08/24 12:43 10/08/24 13:41 10/08/24 13:58 Temperature 96.8 F L Temperature Source Temporal Pulse Rate 80 70 Respiratory Rate 18 16 Respiratory Pattern Normal Blood Pressure 147/94 H 144/75 H Blood Pressure Mean 111 98 Pulse Ox 98 98 Oxygen Delivery Method Room Air Room Air 10/08/24 14:00 Temperature Temperature Source Pulse Rate 72 Respiratory Rate 11 L Respiratory Pattern Blood Pressure Blood Pressure Mean Pulse Ox 98 Oxygen Delivery Method Positive well nourished and well developed General Appearance ED: well developed and NAD HEENT Reports TM's clear and moist mucous membranes normocephalic and atraumatic; Negative for trauma or tenderness Tympanic Membrane ED: Yes TM's clear Eyes PERRL and EOMs intact bilaterally General Eye ED: Negative for pale conjunctiva or scleral icterus Neck no lymphadenopathy, supple and no JVD General: Negative for tenderness Chest Wall inspection of chest normal and palpation of chest normal Chest: Negative for tenderness Resp normal respiratory effort and clear to auscultation bilaterally Effort and Inspection: Negative for respiratory distress or pain with movement Auscultation: Negative for rhonchi, wheezes or diminished lung sounds Cardio regular rate, regular rhythm, S1 normal heart sound, S2 normal heart sound and no murmurs Peripheral Pulses: pulses 2+ throughout GI normal to inspection, nondistended, normoactive bowel sounds, soft to palpation,non-tender, non-distended and no masses Back/Spine no CVA tenderness and no thoracic nor lumbar tenderness Extremity normal to inspection General Extremety ED: Negative for edema General Extremity: Negative for edema Neuro oriented x3, CN's II-XII intact bilaterally, no sensory deficits noted and gait normal Sensorium / Orientation: awake, alert, oriented to person, oriented to place andoriented to time Motor Exam: strength 5/5 throughout and strength abnormal Psych mental status grossly normal Skin no rashes or lesions noted and no wounds MDM MDM MDM Narrative Medical decision making narrative: Patient presents with concern for low sodium and potassium. Had blood work doneyesterday as an outpatient. She is on chlorthalidone that she has been on sinceFebruary for elevated blood pressures. IV established. CBC with differential white count 4.8 with hemoglobin 12.4 platelet count of 297. Chemistry showed a potassium of 2.5 and a sodium of 117. BUN 8 and creatinine 0.66. Urinalysis normal. 1 view chest x-ray unremarkable. Patient was ordered potassium chloride 40 mill equivalents p.o. Patient also ordered a liter normal same fluid bolus. Case will be discussed with hospitalist to evaluate patient for admission for hyponatremia and hypokalemia. Lab Data Attestation: I reviewed the patient's lab results. Labs: Laboratory Results - last 24 hr 10/08/24 10/08/24 14:01 14:03 WBC 4.8 RBC 3.79 L Hgb 12.4 Hct 33.4 L MCV 88.1 MCH 32.7 H MCHC 37.1 H RDW Std Deviation 36.2 RDW Coeff of Mehran 11.3 L Plt Count 297 MPV 8.7 Immature Gran % (Auto) 0.400 Neut % (Auto) 64.1 Lymph % (Auto) 25.9 [place] % (Auto) 7.1 Eos % (Auto) 1.9 Baso % (Auto) 0.6 Absolute Neuts (auto) 3.1 Absolute Lymphs (auto) 1.24 Nucleated RBC % 0 Sodium 117 L* Potassium 2.5 L* Chloride 78 L Carbon Dioxide 25.6 Anion Gap 13 BUN 8 Creatinine 0.66 L Estim Creat Clear Calc 94.76 Est GFR (MDRD) Non-Af 104 BUN/Creatinine Ratio 12.2 Glucose 106 H Calcium 10.1 Magnesium 2.1 Urine Color Yellow Urine Clarity Clear Urine pH 8.0 Ur Specific [place] 1.010 Urine Protein Negative Urine Glucose (UA) Normal Urine Ketones Negative Urine Occult Blood Negative Urine Nitrite Negative Urine Bilirubin Negative Urine Urobilinogen Normal Ur Leukocyte Esterase Negative Urine RBC 0-5 SEEN Urine WBC 0-5 SEEN Ur Squamous Epith Cells 0-5 SEEN Urine Bacteria 0 SEEN Urine Mucus 0 SEEN Radiography Diagnostic Testing: Clinical Impression(s) from Imaging Studies Chest X-Ray 10/08/24 14:15 IMPRESSION: No acute cardiopulmonary process. Reading Location: [facility] Normal sinus rhythm Discharge Plan Dx/Rx/DC Orders Clinical Impression: Acute hyponatremia, Acute hypokalemia Disposition Disposition: Acute Care Hospital [facility] What to do if you have Problems For any increased pain, shortness of breath, bleeding, nausea or vomiting, chestpain, or any unexpected problems, contact your Primary Care Provider. Call [facility] ([phone]) or report to the closest Emergency Room. Call 911 if necessary. 10/08/24 1530 <Electronically signed by Iftikhar Mendoza DO> Cosigner Signature (if applicable): CC: Dr. Brandon Monet DO ~ Signed [facility] Work Phone: 1(657) 496-430103-21-2025 Evaluation note* Diagnosis Onset Date Resolution Status Admit Date Acute hypokalemia acute September 192024 3:00pm Acute hyponatremia acute October 08, 2024 3:00pm Hypertension chronic October 08, 2024 3:00pm [facility] Work Phone: 1(442) 838-229703-21-[address] [facility] Medical Records Department [address] [place] [address] H&P Exam - Hospitalist 10/08/24 1458 MR#: [id number] Acct: [id number] Name: ISA TOVAR Rep #:[id number] : 1970 54 From: Jonathan hanks DO PCP: Dr. Brandon Monet, DO Status:AD M IN Location: [facility] [id number] HPI - General General Date of Admission: 10/08/24 Date of Service: 10/08/24 Chief Complaint: Abnormal labs HPI Narrative ISA TOVAR, is a 54 F who presented to [facility] ED on 10/08/2024 with abnormal outpatient labs. Patient was found on BMP to have a sodium of 117 and potassium of 2.5. Last sodium was 134 on 08/07/24, has no prior history of hyponatremia. Patient has been following with nephrology sinceApril for resistant hypertension. Secondary hypertension workup has been negative. She has had several medication changes since April. She was recently started on chlorthalidone 25 mg daily in early to mid August, and dose was then up to 50 mg daily in early September. She reports lightheadedness with mental fogginess and headache over the past few weeks. Today she feels similar to previous days but she is alert and oriented x 3 and conversing normally. Given no acute mental status change noted, she was given 1 L of normal saline and potassium supplementation, and hospitalist was contacted for admission. I saw the patient at bedside in the ED. Patient was very pleasant and sitting back comfortably in bed, conversing normally and in no acute distress. She stated that she felt slightly better after receiving the IV fluids earlier. Sheotherwise feels well, denies any acute pain or discomfort. No otheracute concerns at this time. [facility] Medical History (Updated 10/08/24 @ 16:[address] Jonathan Brasher DO) Hypertension Medical History no medical history Home Medications ?Medication ?Instructions ?Recorded ?Last Taken ?Type fluoxetine 40 mg capsule 40 mg PO DAILY 05/30/2409/19 History artifi.tears(hypromellose)(PF) 1.7 1 drp EACH EYE SID Y PRN dry eye(s) 10/08/24 10/08/24 History % eye drops with applicator [id number] 333 mg-133 3 tab PO BID 5 10/08/24 History mg-5 mg tablet chlorthalidone 25 mg tablet 25 mg PO DAILY 10/08/24 History doxazosin 1 mg tablet 1 mg PO QHS 10/08/24 5 History famotidine 20 mg tablet (Acid 20 mg PO BID 10/08/24 History Controller) losartan 100 mg tablet 100 mg PO DAILY 10/08/24 History spironolactone 25 mg tablet 25 mg PO BID 10/08/2409/19 History Allergy/AdvReac Type Severity Reaction Status Date / Time amlodipine AdvReac Intermediate edema Verified 10/08/24 12:43 lisinopril AdvReac Mild cough Verified 10/08/24 12:43 Family History no significant family his Surgical History (Updated 08/07/24 @ 18:32 by Lalita Winchester) H/O: hysterectomy Surgical History no surgical history Social History Smoking Status: Never smoker ROS Constitutional Constitutional: Denies chills, fatigue, fever(s) or weakness Eyes Eyes: Denies change in vision Cardiovascular Cardiovascular: Denies chest pain Respiratory/Chest Respiratory/Chest: Denies cough or shortness of breath at rest Gastrointestinal Gastrointestinal: Denies abdominal pain, constipation, diarrhea, nausea or vomiting Genitourinary Genitourinary: Denies dysuria Musculoskeletal Musculoskeletal: Denies arthralgias or myalgias Neurologic Neurologic: Reports headache(s); Denies dizziness Vital Signs Vital Signs Vital Signs: 10/08/24 12:43 10/08/24 13:41 10/08/24 13:58 Temperature 96.8 F L Temperature Source Temporal Pulse Rate 80 70 Respiratory Rate 18 16 Respiratory Pattern Normal Blood Pressure 147/94 H 144/75 H Blood Pressure Mean 111 98 Pulse Ox 98 98 Oxygen Delivery Method Room Air Room Air 10/08/24 14:00 Temperature Temperature Source Pulse Rate 72 Respiratory Rate 11 L Respiratory Pattern Blood Pressure Blood Pressure Mean Pulse Ox 98 Oxygen Delivery Method Weight Weight: 67.948 kg Body Mass Index (BMI) 23.4 Physical Exam Const alert, oriented x3, no apparent distress, average body habitus, healthy appearing and well nourished Constitutional Narrative: Pleasant middle-age female, sitting back comfortably in bed, conversing normally, in no acute distress. General Appearance: cooperative, comfortable, well kempt and well developed HEENT normocephalic, head/scalp atraumatic, hearing grossly normal bilaterally, nasal mucous membranes and turbinates normal and moist oral mucous membranes Eyes PERRL, EOMs intact bilaterally and conjunctivae normal Neck full ROM Chest inspection of chest normal Resp normal respiratory effort, normal air movement, no use of accessory muscles and clear to auscultation bilaterally Cardio regular rate, regular rhythm, no murmurs and peripheral pulses 2+ throughout GI normal to inspection, nondistended, normoactive bowel sounds, soft to palpation,non-tender and non-distended Back/Spine normal ROM Extremity normal to inspection, full ROM and no pedal edema Skin no rashes or lesions noted Neuro moves all extremities and no focal motor deficits Speech: speech normal Motor Exam: strength 5/5 throughout Psych mental status grossly normal Results Lab / Micro Data 10/08/24 14:03 10/08/24 14:03 Labs: Laboratory Results - last 24 hr 10/08/24 14:01: Urine Color Yellow, Urine Clarity Clear, Urine pH 8.0, Ur Specific [place] 1.010, Urine Protein Negative, Urine Glucose (UA) Normal, UrineKetones Negative, Urine Occult Blood Negative, Urine Nitrite Negative, Urine Bilirubin Negative, Urine Urobilinogen Normal, Ur Leukocyte Esterase Negative, Urine RBC 0-5 SEEN, Urine WBC 0-5 SEEN, Ur Squamous Epith Cells 0-5 SEEN, Urine Bacteria 0 SEEN, Urine Mucus 0 SEEN 10/08/24 14:03: WBC 4.8, RBC 3.79 L, Hgb 12.4, Hct 33.4 L, MCV 88.1, MCH 32.7 H,MCHC 37.1 H, RDW Std Deviation 36.2, RDW Coeff of Mehran 11.3 L, Plt Count 297, MPV8.7, Immature Gran % (Auto) 0.400, Neut% (Auto) 64.1, Lymph % (Auto) 25.9, [place]% (Auto) 7.1, Eos % (Auto) 1.9, Baso % (Auto) 0.6, AbsoluteNeuts (auto) 3.1, Absolute Lymphs (auto) 1.24, Nucleated RBC % 0, Sodium 117 L*, Potassium 2.5 L*,Chloride 78 L, Carbon Dioxide 25.6, Anion Gap 13, BUN 8, Creatinine 0.66 L, Estim Creat Clear Calc 94.76, Est GFR (MDRD) Non-Af 104, BUN/Creatinine Ratio 12.2, Glucose 106 H, Calcium 10.1, Magnesium 2.1 Imaging Radiology Impression Chest X-Ray 10/08/24 14:15 IMPRESSION: No acute cardiopulmonary process. Reading Location: [facility] Assessment & Plan Assessment/Plan (1) Acute hyponatremia: (2) Acute hypokalemia: (3) Hypertension: PLAN: Plan Patient is a 54-year-old female who presented to [facility] ED on 10/08/2024 with abnormal outpatient labs. 1. Severe hyponatremia ? Admit under patient status to PCU. Sodium 117, chloride 78 on admit. Baseline sodium around 135. No acute mental status change noted, no need for hypertonic saline. Strongly suspect this is secondary to chlorthalidone that was started a little over 1 month ago. Urine sodium, urine osmolality and serumosmolality ordered for further evaluation. Has been on her SSRI for 10 to 15 years and there are no other clear medications that would cause this degree of hyponatremia. Given 1 L of normal saline in the ED. Will recheck sodium levelsevery 6 hours through tomorrow morning with goal sodium 123-125 tomorrow morning. 1500 mL fluid restriction. Can consider nephrology consult as needed. 2. Hypokalemia ? Potassium 2.5 on admit. Magnesium normal. Phosphorus pending. Presume secondary to chlorthalidoneas well. Will replete as needed. 3. Resistant hypertension ? Follows with outpatient nephrology has been seeing them since April 2024 forhypertension. Last virtual visit was on 10/06 and I reviewed this note in [facility]. Workup for secondary hypertension was negative. Has strong family history of hypertension. Previously intolerant to lisinopril (cough) and amlodipine (ankle swelling). Clonidine recently stopped as patient had intermittent nonadherence. Was on chlorthalidone 50 mg daily, losartan 100 mg daily and clonidine 0.1 mg twice daily until 10/06. Clonidine was stopped, chlorthalidone was lowered to 25 mg daily and both spironolactone 25 mg twice daily and doxazosin 1 mg at night were added. Chlorthalidone discontinued and should not be represcribed given her severe hyponatremia presumed secondary to this. While here will treat with losartan 100 mg daily, spironolactone 25 mg twice daily and doxazosin 1 mg at night. Will need close outpatient follow-up with nephrology after discharge. 4. Depression ? Has been on sertraline for 10 to 15 years, very low concern that this contributed to her hyponatremia. Continue home sertraline. 5. GERD ? Continue home Pepcid. DVT prophylaxis: Lovenox CODE STATUS: Full code, verified Expected disposition: Home, 2 to 3 days Total clinical time spent by myself addressing the patient's medical issues, reviewing all the data, and collaborating with patient's care team: 55 minutes. Charges/Coding Visit Charges Inpatient E&M: 87893 Init Hosp L2 10/08/24 1620 Cosigner Signature (if applicable): CC: Dr. Jonathan Brasher DO; Dr. Brandon Monet DO~ Signed [facility]03-21-2025 Discharge summary [facility] Medical Records Department [address] [place] [address] Emergency Department Summary 10/08/24 MR#: [id number] Acct: [id number] Name: ISA TOVAR Rep #:[id number] : 1970 54 From: Iftikhar Mendoza DO PCP: Dr. Brandon Monet DO Status:AD M IN Location: [address] History of Present Illness Chief Complaint: Abn Labs Detail of Chief Complaint: Abnormal labs Narrative Narrative: Patient presents to the emergency department complaint of abnormal labs today. Patient states that she has been dealing with elevated blood pressure since April. She was referred to a sample sawyer whom she had a virtual visit with 2days ago. She had lab workup ordered which she had drawn yesterday and today she was called and told to come to the ER because her potassium and her sodium were low.Patient describes feeling generally weak. She has had a cough for some time for which she was recently treated with Tessalon Perles and Augmentin. She is currently on chlorthalidone and started spironolactone and doxazosin yesterday. Patient also takes losartan 100 mg daily. Denies diarrhea. She states that her cough sometimes causes her to vomit PFSH PFSH Medical History (Updated 10/08/24 @ 14:[address] Iftikhar Mendoza DO) Hypertension Medical History no medical history Home Medications ?Medication ?Instructions ?Recorded ?Last Taken ?Type fluoxetine 40 mg capsule 40 mg PO DAILY 05/30/24 Unkn own History clonidine HCl 0.1 mg tablet 0.1 mg PO Q8H PRN hyperten josselin 2 08/07/24 Unknown Rx days #6 tabs losartan 50 mg tablet 50 mg PO DAILY 08/07/24 Unkn own History Allergy/AdvReac Type Severity Reaction Status Date / Time amlodipine AdvReac Intermediate edema Verified 10/08/24 12:43 lisinopril AdvReac Mild cough Verified 10/08/24 12:43 Family History no significant family his Surgical History (Updated 08/07/24 @ 18:32 by Lalita Winchester) H/O: hysterectomy Surgical History no surgical history Social History Smoking Status: Never smoker ROS ROS ED Review of Systems ROS Unobtainable: other Constitutional Constitutional ED: Reports lethargy; Denies chills, fever(s), sweats or weight loss Eyes Eyes: Denies blurry vision, change in vision or diplopia ENT ENT ED: Denies rhinorrhea or sore throat Cardiovascular Cardiovascular: Denies chest pain, orthopnea or racing heartbeat Respiratory/Chest Respiratory/Chest: Reports cough; Denies dyspnea, dyspnea on exertion, orthopneaor sputum Gastrointestinal Gastrointestinal: Denies abdominal pain, diarrhea, nausea or vomiting Genitourinary Genitourinary ED: Denies dysuria, hematuria or urinary frequency Musculoskeletal Musculoskeletal: Denies arthralgias, back pain, myalgias or neck pain Integumentary Denies abscess, Abrasions or rash Neurologic Neurologic: Reports weakness; Denies headache(s) Psychiatric Psychiatric: Denies anxiety, depression or suicidal thoughts Endocrine Endocrinology: Denies polydipsia, polyphagia or polyuria Hematologic/Lymphatic Hematologic/Lymphatic: Denies easy bleeding, easy bruising or lymphadenopathy Allergic/Immunologic Allergic/Immunologic ED: Denies mouth swelling, tongue swelling or urticaria EXAM Physical Exam Const Vital Signs: 10/08/24 12:43 10/08/24 13:41 10/08/24 13:58 Temperature 96.8 F L Temperature Source Temporal Pulse Rate 80 70 Respiratory Rate 18 16 Respiratory Pattern Normal Blood Pressure 147/94 H 144/75 H Blood Pressure Mean 111 98 Pulse Ox 98 98 Oxygen Delivery Method Room Air Room Air 10/08/24 14:00 Temperature Temperature Source Pulse Rate 72 Respiratory Rate 11 L Respiratory Pattern Blood Pressure Blood Pressure Mean Pulse Ox 98 Oxygen Delivery Method Positive well nourished and well developed General Appearance ED: well developed and NAD HEENT Reports TM's clear and moist mucous membranes normocephalic and atraumatic; Negative for trauma or tenderness Tympanic Membrane ED: Yes TM's clear Eyes PERRL and EOMs intact bilaterally General Eye ED: Negative for pale conjunctiva or scleral icterus Neck no lymphadenopathy, supple and no JVD General: Negative for tenderness Chest Wall inspection of chest normal and palpation of chest normal Chest: Negative for tenderness Resp normal respiratory effort and clear to auscultation bilaterally Effort and Inspection: Negative for respiratory distress or pain with movement Auscultation: Negative for rhonchi, wheezes or diminished lung sounds Cardio regular rate, regular rhythm, S1 normal heart sound, S2 normal heart sound and no murmurs Peripheral Pulses: pulses 2+ throughout GI normal to inspection, nondistended, normoactive bowel sounds, soft to palpation,non-tender, non-distended and no masses Back/Spine no CVA tenderness and no thoracic nor lumbar tenderness Extremity normal to inspection General Extremety ED: Negative for edema General Extremity: Negative for edema Neuro oriented x3, CN's II-XII intact bilaterally, no sensory deficits noted and gait normal Sensorium / Orientation: awake, alert, oriented to person, oriented to place andoriented to time Motor Exam: strength 5/5 throughout and strength abnormal Psych mental status grossly normal Skin no rashes or lesions noted and no wounds MDM MDM MDM Narrative Medical decision making narrative: Patient presents with concern for low sodium and potassium. Had blood work doneyesterday as an outpatient. She is on chlorthalidone that she has been on sinceFebruary for elevated blood pressures. IVestablished. CBC with differential white count 4.8 with hemoglobin 12.4 platelet count of 297. Chemistry showed a potassium of 2.5 and a sodium of 117. BUN 8 and creatinine 0.66. Urinalysis normal. 1view chest x-ray unremarkable. Patient was ordered potassium chloride 40 mill equivalents p.o. Patient also ordered a liter normal same fluid bolus. Case will be discussed with hospitalist to evaluate patient for admission for hyponatremia and hypokalemia. Lab Data Attestation: I reviewed the patient's lab results. Labs: Laboratory Results - last 24 hr 10/08/24 10/08/24 14:01 14:03 WBC 4.8 RBC 3.79 L Hgb 12.4 Hct 33.4 L MCV 88.1 MCH 32.7 H MCHC 37.1 H RDW Std Deviation 36.2 RDW Coeff of Mehran 11.3 L Plt Count 297 MPV 8.7 Immature Gran % (Auto) 0.400 Neut % (Auto) 64.1 Lymph % (Auto) 25.9 [place] % (Auto) 7.1 Eos % (Auto) 1.9 Baso % (Auto) 0.6 Absolute Neuts (auto) 3.1 Absolute Lymphs (auto) 1.24 Nucleated RBC % 0 Sodium 117 L* Potassium 2.5 L* Chloride 78 L Carbon Dioxide 25.6 Anion Gap 13 BUN 8 Creatinine 0.66 L Estim Creat Clear Calc 94.76 Est GFR (MDRD) Non-Af 104 BUN/Creatinine Ratio 12.2 Glucose 106 H Calcium 10.1 Magnesium 2.1 Urine Color Yellow Urine Clarity Clear Urine pH 8.0 Ur Specific [place] 1.010 Urine Protein Negative Urine Glucose (UA) Normal Urine Ketones Negative Urine Occult Blood Negative Urine Nitrite Negative Urine Bilirubin Negative Urine Urobilinogen Normal Ur Leukocyte Esterase Negative Urine RBC 0-5 SEEN Urine WBC 0-5 SEEN Ur Squamous Epith Cells 0-5 SEEN Urine Bacteria 0 SEEN Urine Mucus 0 SEEN Radiography Diagnostic Testing: Clinical Impression(s) from Imaging Studies Chest X-Ray 10/08/24 14:15 IMPRESSION: No acute cardiopulmonary process. Reading Location: [facility] Normal sinus rhythm Discharge Plan Dx/Rx/DC Orders Clinical Impression: Acute hyponatremia, Acute hypokalemia Disposition Disposition: [facility] What to do if you have Problems For any increased pain, shortness of breath, bleeding, nausea or vomiting, chestpain, or any unexpected problems, contact your Primary Care Provider. Call [facility] ([phone]) or report tothe closest Emergency Room. Call 911 if necessary. 10/08/24 1530 Cosigner Signature (if applicable): CC: Dr. Brandon Monet DO ~ Signed [facility]03-21-2025 Radiology Diagnostic study note [facility] Imaging Services [address] [place] [address] Chest 1 View (Portable) MR#: [id number] Acct: [id number] Name: ISA TOVAR Rep #: [id number] : 1970 F 54 From: Kavita Stewart MD PCP: Dr. Brandon Monet DO Status: RE G ER Study:Chest 1 View (Portable) Date of Exam: 10/08/24 Exam# [id number] Ordering Dr: Michell Mendoza DO EXAM: XR Chest, 1 View CLINICAL INDICATION: COUGH TECHNIQUE: Frontal view of the chest. COMPARISON: No relevant prior studies available. FINDINGS: LUNGS AND PLEURAL SPACES: Unremarkable. No consolidation. No pneumothorax. HEART: Unremarkable. No cardiomegaly. MEDIASTINUM: Unremarkable. Normal mediastinal contour. BONES/JOINTS: Unremarkable. No acute fracture. RAD/Chest 1 View (Portable) IMPRESSION: No acute cardiopulmonary process. Reading Location: [facility] CC: Dr. Brandon Monet DO; Dr. Iftikhar Mendoza DO ~ Plug Wirer: Signed [facility]03-21-2025 Telephone encounter Note* Telephone Encounter - Aditya Brown MD - 10/08/2024 1:04 AM EDT Images from the original note were not included. Attempted to call the patient multiple times to discuss their labs with them: She was noted to have low sodium (118) and hypokalemia (2.7) with low osmolality 245. Seen over video visit 10/06 for resistant HTN. Currently on chlorthalidone and fluoxetine. Given the severity of her hyponatremia she needs to go to the ED for evaluation. Will try to contact the patient again in the morning. Discussed with rajani. Numbers tried: [phone] (Home Phone) [phone] (Work Phone) Attempted to call the patient again at 630. will fwd to AA and staff Addendum: I called the patient a couple of times at [phone] and also her at [phone] but there was no answer. I left her a voicemail message for her and also for her with lab results showing very low blood level of sodium and potassium and instructions for her to go to the emergency room for evaluation and treatment. Department of Kidney Medicine [facility] [place] Ladarius Mayer MD Staff Nephrology and Hypertension [facility] Pager# [phone] [facility] Work Phone: 1(763) 536-746403-21-2025 Miscellaneous Notes* Telephone Encounter - Aditya Brown MD - 10/08/2024 1:04 AM EDT Images from the original note were not included. Attempted to call the patient multiple times to discuss their labs with them: She was noted to have low sodium (118) and hypokalemia (2.7) with low osmolality 245. Seen over video visit 10/06 for resistant HTN. Currently on chlorthalidone and fluoxetine. Given the severity of her hyponatremia she needs to go to the ED for evaluation. Will try to contact the patient again in the morning. Discussed with rajani. Numbers tried: [phone] (Home Phone) [phone] (Work Phone) Attempted to call the patient again at 630. will fwd to AA and staff Addendum: I called the patient a couple of times at [phone] and also her at [phone] but there was no answer. I left her a voicemail message for her and also for her with lab results showing very low blood level of sodium and potassium and instructions for her to go to the emergency room for evaluation and treatment. Department of Kidney Medicine Medical Special[facility] [place] Ladarius Mayer MD Staff Nephrology and Hypertension [facility] Pager# [phone] documented in [facility] History of Present illness Narrative* Ladarius Arenas MD - 10/06/2024 9:00 AM EDT Images from the original note were not included. Department of Kidney Medicine Medical Special[facility] [place] NEPHROLOGY CONSULT NOTE Patient Name: Isa Tovar Consultation requested by Ivory Espinoza APRN, LAQUITA (PCP: Brandon Monet DO) for an opinion regarding: resistant HTN My final recommendations will be communicated back to the requesting physician by way of shared Medical record or letter to requesting physician via US mail. CHIEF COMPLAINT: resistant HTN HPI: 54 y/o female with h/o depression, ex-smoker, GERD, intolerance to lisinopril (cough), intolerance to amlodipine (ankle edema), family h/o HTN (maternal grandmother, both parents, brother and sister); mild elevation of the blood pressure since 2022, and HTN diagnosed in 04/2024; who as referred forevaluation of resistant HTN. The patient requested to have a virtual videoconference encounter. I have communicated my name and active licensure. The patient's identity and physical location wereverified at the time of this visit. Either the patient or their legal freight representative has been informed of the risks and benefits of -- and alternatives to -- treatment through a remote evaluation andconsents to proceed with the evaluation remotely. Virtual videoconference encounter per patient's request. Duration (when): mild elevation of the blood pressure since 2022, and HTN diagnosed in 04/2024 Location (where): the systemic arterial blood pressure Severity (ex: creat 4.5, BP 200/100): Her SBP is 170-195/90-100. Quality (ex: sharp, dull): chronic Context (ex: activity at onset or related to condition): spontaneous Timing (ex: continuous, intermittent): continuous Modifying factors (ex: medications, interventions): ibuprofen prn, clonidine prn; losartan, and chlorthalidone (dose increased from 25 mg daily to 50 mg daily but the patient developed cry cough since then) Associated signs & symptoms (ex: edema, SOB): high blood pressure, headaches PAST MEDICAL HISTORY: PAST MEDICAL HISTORY Diagnosis Date Depression PAST SURGICAL HISTORY: PAST SURGICAL HISTORY Procedure Laterality Date COLONOSCOPY SCREENING 08/16/2022 repeat in 5 years, poor bowel prep EXCISION GANGLION WRIST DORSAL/VOLAR PRIMARY Right 08/30/2022 Excision ganglion cyst right wrist and open palmar fasciectomy HAND SURGERY HX Right Dr. Dougherty TONSILLECTOMY PRIMARY/SECONDARY <AGE 12 Tonsillectomy VAGINAL HYSTERECTOMY UTERUS 250 GM/< 07/21/2008 Hysterectomy, vaginal FAMILY HISTORY: FAMILY HISTORY Problem Relation Age of Onset Hypertension Mother Hypertension Father Hypertension Maternal Grandmother Heart Maternal Grandmother Hypertension Sister Heart Brother congenital valve dx, valve replacement/repair No family h/o stroke. 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 MEDICATIONS: chlorthalidone (HYGROTON) 50 mg tablet Take 1 tablet by mouth once daily. losartan (COZAAR) 100 mg tablet Take 1 tablet by mouth once daily. cloNIDine HCl (CATAPRES) 0.1 mg tablet Take 1 tablet by mouth two times a day. FLUoxetine (PROZAC) 40 mg capsule Take 1 capsule by mouth two times a day. In addition to 20mg capsule for total of 60mg daily multivitamin tablet Take 1 tablet by mouth once daily. famotidine (PEPCID) 20 mg tablet Take 1 tablet by mouth at bedtime as needed. Zyupzhp-Pijsrphlp-Wdel tab Take by mouth. ALLERGIES: ALLERGIES Allergen Reactions Amlodipine Intolerance Pedal edema Lisinopril Cough ROS: PAIN ASSESSMENT: Positive for headaches when she gets uncontrolled HTN. She takes ibuprofen and Tylenol as needed CONSTITUTIONAL: She has lost 8 pounds of weight in the past month, unintentionally due to cough andvomiting after she eats which started hen her chlorthalidone dose was increased from 25 mg daily to50 mg daily. No snoring. Positive for lightheadedness and weakness. No malaise, fevers or chills. No falls HEENT: Positive for headaches and blurry vision when her blood pressure is high. Positive for epistaxis, sore throat and hoarseness due to coughing. No hearing impairment NECK: no neck pain, mass or stiffness RESPIRATORY: Positive for coughing, nausea and vomiting after she eats which started hen her chlorthalidone dose was increased from 25 mg daily to 50 mg daily. Negative for hemoptysis, wheezing or shortness of breath CARDIOVASCULAR: Negative for chest pain, orthopnea, palpitations, or edema GASTROINTESTINAL: Positive for coughing, nausea and vomiting after she eats which started hen her chlorthalidone dose was increased from 25 mg daily to 50 mg daily. Negative for diarrhea. No hematemesis, hematochezia, melena or constipation GENITOURINARY: Negative for dysuria or hematuria SKIN: Negative for lesions, rash, and itching NEURO: Positive for headaches and blurry vision when her blood pressure is high. No history of aphasia, dysarthria, syncope, paralysis, seizures or tremors MUSCULOSKELETAL: No joint swelling or back pain ENDOCRINE: No polydipsia or polyphagia HEMATOLOGIC: No bleeding. She bruises easily LYMPHATIC: No generalized lymphadenopathy IMMUNOLOGIC: She doesn't take the influenza vaccine or the CoVID-19 vaccine VITAL SIGNS: Virtual videoconference encounter per patient's request. Most recent vitals on record: BP: 177/93 as of 09/28/2024 BP: 177/93 Weight: 68.6 kg (151 lb 3.2 oz) as of 09/28/2024 Pulse: 69 as of 09/28/2024 Temp: 36.9 C (98.5 F) as of 09/28/2024 SpO2: 100% as of 09/28/2024 Resp: 16 as of 09/28/2024 Body Mass Index: 23.68 kg/m 170.2 cm (5' 7) as of 08/30/2022 68.6 kg (151 lb 3.2 oz) as of 09/28/2024 Temp Source: Left Tympanic as of 09/28/2024 Height: 170.2 cm (5' 7) as of 08/30/2022 PHYSICAL EXAM: GENERAL: Pleasant, adult female with BMI 23.68, alert, in no acute distress, cooperative, sitting at home SKIN: No facial rash HEENT: normocephalic, perrl, eomi, moist oral mucosa Virtual videoconference encounter per patient's request. LABS: Hemoglobin (g/dL) Date Value 08/01/2023 13.1 01/02/2018 13.1 Hematocrit (%) Date Value 08/01/2023 39.0 01/02/2018 41.2 WBC (k/uL) Date Value 08/01/2023 3.73 01/02/2018 5.58 Glucose (mg/dL) Date Value 08/01/2023 84 01/02/2018 69 Potassium (mmol/L) Date Value 08/01/2023 4.5 01/02/2018 4.0 Sodium (mmol/L) Date Value 08/01/2023 134 01/02/2018 134 Chloride (mmol/L) Date Value 08/01/2023 99 01/02/2018 98 CO2 (mmol/L) Date Value 08/01/2023 23 01/02/2018 23 Creatinine (mg/dL) Date Value 08/01/2023 0.79 01/02/2018 0.71 BUN (mg/dL) Date Value 08/01/2023 10 01/02/2018 8 Anion Gap (mmol/L) Date Value 08/01/2023 12 01/02/2018 13 Calcium (mg/dL) Date Value 01/02/2018 9.6 Calcium, Total (mg/dL) Date Value 08/01/2023 10.3 Protein, Total (g/dL) Date Value 08/01/2023 7.2 01/02/2018 6.4 Albumin (g/dL) Date Value 08/01/2023 4.5 01/02/2018 4.3 Bilirubin, Total (mg/dL) Date Value 08/01/2023 0.2 01/02/2018 0.4 Alkaline Phosphatase (U/L) Date Value 08/01/2023 80 01/02/2018 59 AST (U/L) Date Value 08/01/2023 22 01/02/2018 29 ALT (U/L) Date Value 08/01/2023 17 01/02/2018 23 US RENAL ARTERY [facility] Order: [id number] Narrative Non-Invasive Vascular Laboratory [facility] Renal or Mesenteric Duplex Bilateral/Complete Date of service/time: 08/25/2024 8:19:42 AM Name: ISA TOVAR Date of : 1970 Age: 54 years Gender: F Clinical Indication HTN. TECHNIQUE -------- A visceral duplex ultrasound examination was performed, including grayscale imaging and color Doppler and spectral Doppler examination of the below mentioned arteries and veins. FINDINGS -------- Aorta proximal PSV: 93 cm/s. 2.35 cm Aorta distal PSV: 92 cm/s. 1.65 cm Right renal artery origin PSV: 164 cm/s. EDV: 50 cm/s. Right renal artery proximal PSV: 123 cm/s. EDV: 35 cm/s. Right renal artery mid PSV: 131 cm/s. EDV: 41 cm/s. Right renal artery distal PSV: 140 cm/s. EDV: 45 cm/s. Right renal artery to aortic ratio (RAR): 1.8 Right kidney: Size: 8.7 cm. Left renal artery origin PSV: 98 cm/s. EDV: 31 cm/s. Left renal artery proximal PSV: 126 cm/s. EDV: 46 cm/s. Left renal artery mid PSV: 76 cm/s. EDV: 29 cm/s. Left renal artery distal PSV: 106 cm/s. EDV: 43 cm/s. Left renal artery to aortic ratio (RAR): 1.4 Left kidney: Size: 9.6 cm. IMPRESSION RIGHT RENAL Right renal artery: 0-59% stenosis. No evidence of hemodynamically significant stenosis. LEFT RENAL Left renal artery: 0-59% stenosis. No evidence of hemodynamically significant stenosis. Technologist: Marco Antonio Owens Jr BS, RVT Ordering physician: IZA SIMMS Interpreting physician: Porfirio Taylor MD Final See Link below for Image Specimen Collected: 08/25/24 8:19 AM EST Last Resulted: 08/28/24 4:14 PM EST ALDOSTERONE/DIRECT RENIN RATIO Order: [id number] Component Ref Range & Units 1 mo ago Aldosterone 0.0 - <35.4 ng/dL 20.0 Comment: The reference interval for serum/plasma aldosterone is based on a normal sodium intake andupright position. High sodium intake may suppress aldosterone and low sodium intake may increase aldosterone. The supine reference interval is <23.7 ng/dL. A ratio of aldosterone in ng/dL to direct renin in pg/mL greater than or equal to 3.8 is a positivescreening test result for primary aldosteronism, when aldosterone is greater than or equal to 15 ng/dL. Direct Renin 3.6 - 81.6 pg/mL 6.7 Comment: The reference interval for direct renin is based on an upright position. The supine reference intervals are: Age <41 years: 3.2-33.2 pg/mL Age >=41 years: 2.5-45.1 pg/mL A ratio of aldosterone in ng/dL to direct renin in pg/mL greater than or equal to 3.8 is a positivescreening test result for primary aldosteronism, when aldosterone is greater than or equal to 15 ng/dL. Aldosterone/Renin Act Rat <3.8 3.0 Comment: A ratio of aldosterone in ng/dL to direct renin in pg/mL greater than or equal to 3.8 is apositive screening test result for primary aldosteronism, when aldosterone is greater than or equalto 15 ng/dL. Patient Upright or Supine Upright Resulting Agency CCM Specimen Collected: 08/26/24 12:36 PM EST Last Resulted: 08/27/24 12:00 PM EST ASSESSMENT: 54 y/o female with h/o depression, ex-smoker, GERD, intolerance to lisinopril (cough), intolerance to amlodipine (ankle edema), hyponatremia, family h/o HTN (maternal grandmother, both parents, brother and sister); and HTN diagnosed in 04/2024; who as referred for evaluation of resistant HTN. The patient requested to have a virtual videoconference encounter. Virtual videoconference encounter per patient's request. 1. Resistant hypertension - ICD9: 401.9, ICD10: I1A.0. Advised to follow low sodium diet. Avoid clonidine prn due to rebound HTN. Will stop clonidine. Will decrease chlorthalidone to 25 mg by mouth daily. Will start spironolactone 25 mg by mouth twice a day. Will start doxazosin 1 mg by mouth at bedtime. Will continue losartan. Will do an investigation for secondary causes of HTN. PLAN: -Advised to follow a low sodium diet (brochure with instructions sent to the patient). -Avoid NSAIDs (Advil, Motrin, Ibuprofen, Naproxen, Aleve, Aspirin, Anacin, Diclofenac, Daypro, Mobic, Meloxicam, Sulindac, Clinoril, etc), and ARMENDARIZ-2 inhibitors (Celebrex, Celecoxib, etc). -Will stop clonidine. -Will decrease chlorthalidone to 25 mg by mouth daily. -Will start spironolactone 25 mg by mouth twice a day. -Will start doxazosin 1 mg by mouth at bedtime. -Will continue rest of current treatment. -Will update labs. -RTC in 3 months, virtual. Time spent in virtual videoconference contact with the patient, counseling and coordination of careover 60 minutes. Greater than 50% of the visit was spent with virtual videoconference face to face counselling, discussion of the above topics, and coordination of care. All questions answered. Thank you for allowing us to participate in her care. Ladarius Jones MD Staff Nephrology and Hypertension October 06, 2024 6:52 AM CC: DO Brandon Starkey DO documented in this encounterUniversity Hospitals [facility]03-19-2025 NoteHNO ID: [id number] Author: LADARIUS ARENAS MD Service: ? Author Type: Physician Type: Progress Notes Filed: 10/06/2024 09:59 Note Text: [facility] [place] NEPHROLOGY CONSULT NOTE Patient Name: Isa Tovar Consultation requested by Ivory Espinoza APRN, SCREEN PRINTER HELPER (PCP: Brandon Monet DO) for an opinion regarding: resistant HTN My final recommendations will be communicated back to the requesting physician by way of shared Medical record or letter to requesting physician via US mail. CHIEF COMPLAINT: resistant HTN HPI: 54 y/o female with h/o depression, ex-smoker, GERD, intolerance to lisinopril (cough), intolerance to amlodipine (ankle edema), family h/o HTN (maternal grandmother, both parents, brother and sister); mild elevation of the blood pressure since 2022, and HTN diagnosed in 04/2024; who as referred for evaluation of resistant HTN. The patient requested to have a virtual videoconference encounter. I have communicated my name and active licensure. The patient's identity and physical location were verified at the time of this visit. Either the patient or their legal freight representative has been informed of the risks and benefits of -- and alternatives to -- treatment through a remote evaluation and consents to proceed with the evaluation remotely. Virtual videoconference encounter per patient's request. Duration (when): mild elevation of the blood pressure since 2022, and HTN diagnosed in 04/2024 Location (where): the systemic arterial blood pressure Severity (ex: creat 4.5, BP 200/100): Her SBP is 170-195/90-100. Quality (ex: sharp, dull): chronic Context (ex: activity at onset or related to condition): spontaneous Timing (ex: continuous, intermittent): continuous Modifying factors (ex: medications, interventions): ibuprofen prn, clonidine prn; losartan, and chlorthalidone (dose increased from 25 mg daily to 50 mg daily but the patient developed cry cough since then) Associated signs AND symptoms (ex: edema, SOB): high blood pressure, headaches PAST MEDICAL HISTORY: PAST MEDICAL HISTORY Diagnosis Date Depression PAST SURGICAL HISTORY: PAST SURGICAL HISTORY Procedure Laterality Date COLONOSCOPY SCREENING 08/16/2022 repeat in 5 years, poor bowel prep EXCISION GANGLION WRIST DORSAL/VOLAR PRIMARY Right 08/30/2022 Excision ganglion cyst right wrist and open palmar fasciectomy HAND SURGERY HX Right Dr. Dougherty TONSILLECTOMY PRIMARY/SECONDARY Tonsillectomy VAGINAL HYSTERECTOMY UTERUS 250 GM/< 07/21/2008 Hysterectomy, vaginal FAMILY HISTORY: FAMILY HISTORY Problem Relation Age of Onset Hypertension Mother Hypertension Father Hypertension Maternal Grandmother Heart Maternal Grandmother Hypertension Sister Heart Brother congenital valve dx, valve replacement/repair No family h/o stroke. 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 MEDICATIONS: chlorthalidone (HYGROTON) 50 mg tablet Take 1 tablet by mouth once daily. losartan (COZAAR) 100 mg tablet Take 1 tablet by mouth once daily. cloNIDine HCl (CATAPRES) 0.1 mg tablet Take 1 tablet by mouth two times a day. FLUoxetine (PROZAC) 40 mg capsule Take 1 capsule by mouth two times a day. In addition to 20mg capsule for total of 60mg daily multivitamin tablet Take 1 tablet by mouth once daily. famotidine (PEPCID) 20 mg tablet Take 1 tablet by mouth at bedtime as needed. Juimfdb-Tdwqfrtxn-Jgmy tab Take by mouth. ALLERGIES: ALLERGIES Allergen Reactions Amlodipine Intolerance Pedal edema Lisinopril Cough ROS: PAIN ASSESSMENT: Positive for headaches when she gets uncontrolled HTN. She takes ibuprofen and Tylenol as needed CONSTITUTIONAL: She has lost 8 pounds of weight in the past month, unintentionally due to cough and vomiting after she eats which started hen her chlorthalidone dose was increased from 25 mg daily to 50 mg daily. No snoring. Positive for lightheadedness and weakness. No malaise, fevers or chills. No falls HEENT: Positive for headaches and blurry vision when her blood pressure is high. Positive for epistaxis, sore throat and hoarseness due to coughing. No hearing impairment NECK: no neck pain, mass or stiffness RESPIRATORY: Positive for coughing, nausea and vomiting after she eats which started hen her chlorthalidone dose was increased from 25 mg daily to 50 mg daily. Negative for hemoptysis, wheezing or shortness of breath CARDIOVASCULAR: Negative for chest pain, orthopnea, palpitations, or edema GASTROINTESTINAL: Positive for c (more content not included)...[facility] 09-28-2024 NoteHNO ID: [id number] Author: DYLAN COLE PA-C Service: ? Author Type: Physician Scout Type: Progress Notes Filed: 09/29/2024 09:16 Note Text: 09/28/2024 Patient presents with: URI: X2 weeks SUBJECTIVE: This is a 54 year old that is here today for sinus congestion and pain x 2 weeks. She c/o associated cough. She did have some vomiting, but describes this as coughing with drainage and then vomiting. She did have 1 episode after eating. No diarrhea. Denies fever/chills, SOB, chest pain, ear pain. She did have a slightly sore throat but with coughing. PAST MEDICAL HISTORY Diagnosis Date Depression ALLERGIES Amlodipine and Lisinopril MEDICATIONS Current Outpatient Medications Medication Sig chlorthalidone (HYGROTON) 50 mg tablet Take 1 tablet by mouth once daily. losartan (COZAAR) 100 mg tablet Take 1 tablet by mouth once daily. FLUoxetine (PROZAC) 40 mg capsule Take 1 capsule by mouth two times a day. In addition to 20mg capsule for total of 60mg daily multivitamin tablet Take 1 tablet by mouth once daily. famotidine (PEPCID) 20 mg tablet Take 1 tablet by mouth at bedtime as needed. Jjvpldh-Bgslcaish-Uoka tab Take by mouth. cloNIDine HCl (CATAPRES) 0.1 mg tablet Take 1 tablet by mouth two times a day. No current facility-administered medications for this visit. SOCIAL HISTORY Social History Tobacco Use Smoking status: Former Current packs/day: 0.00 Types: Cigarettes Start date: 03/04/1985 Quit date: 03/04/1995 Years since quittin.5 Smokeless tobacco: Never Vaping Use Vaping status: Never Used Substance Use Topics Alcohol use: Yes Comment: occasionally Drug use: No REVIEW OF SYSTEMS See HPI OBJECTIVE: BP 177/93 Pulse 69 Temp 36.9 ?C (98.5 ?F) (Left Tympanic) Resp 16 Wt 68.6 kg (151 lb 3.2 oz) SpO2 100% BMI 23.68 kg/m? APPEARANCE Well appearing, alert, in no acute distress, well-hydrated, well nourished. EYES PERRLA, conjunctiva and sclera normal. EARS External ears normal, canals clear NOSE/SINUS Nares normal. Septum midline. Mucosa normal. No drainage or sinus tenderness. THROAT normal, no erythema NECK Supple, no adenopathy; thyroid symmetric, normal size, no bruits HEART RRR with normal S1 and S2 appreciated LUNG clear to auscultation, No wheezing, rhonchi, rales. ABDOMEN bowel sounds normoactive, no bruits, soft, non-tender, non-distended, without organomegaly or palpable masses, no tenderness to palpation, negative Watkins's, McBurney's, Rovsing's. No rebound, rigidity or guarding. ASSESSMENT/PLAN: 1. Acute maxillary sinusitis, recurrence not specified - ICD9: 461.0, ICD10: J01.00 - Will begin treatment with as per antibiotic as written, see orders - The patient should also be given warm salt water gargles, throat lozenges and/or OTC throat spray as needed and nasal saline gtts and suction prn for the first 5-7 days of treatment. - Supportive care with plenty of fluids, rest, and analgesia prn. - Follow up in 3-5 days if symptoms persist or worsen. Discussed saline nasal rinse. Avoid Flonase with recent epistaxis. - AMOXICILLIN 875 MG-POTASSIUM CLAVULANATE 125 MG TABLET - BENZONATATE 100 MG CAPSULE 2. Hypertension, unspecified type - ICD9: 401.9, ICD10: I10 - Uncontrolled Keep appointment next week with nephrology. Reviewed red flags and when to seek care sooner. The patient indicates understanding of these issues and agrees with the plan. [facility]03-11-2025 History of Present illness Narrative* Dylan Cole PA-C - 09/28/2024 2:46 PM EDT 09/28/2024 Patient presents with: URI: X2 weeks SUBJECTIVE: This is a 54 year old that is here today for sinus congestion and pain x 2 weeks. She c/o associated cough. She did have some vomiting, but describes this as coughing with drainage and then vomiting. She did have 1 episode after eating. No diarrhea. Denies fever/chills, SOB, chest pain,ear pain. She did have a slightly sore throat but with coughing. PAST MEDICAL HISTORY Diagnosis Date Depression ALLERGIES Amlodipine and Lisinopril MEDICATIONS Current Outpatient Medications Medication Sig chlorthalidone (HYGROTON) 50 mg tablet Take 1 tablet by mouth once daily. losartan (COZAAR) 100 mg tablet Take 1 tablet by mouth once daily. FLUoxetine (PROZAC) 40 mg capsule Take 1 capsule by mouth two times a day. In addition to 20mg capsule for total of 60mg daily multivitamin tablet Take 1 tablet by mouth once daily. famotidine (PEPCID) 20 mg tablet Take 1 tablet by mouth at bedtime as needed. Fqafmvi-Etcwiivpb-Pvdr tab Take by mouth. cloNIDine HCl (CATAPRES) 0.1 mg tablet Take 1 tablet by mouth two times a day. No current facility-administered medications for this visit. SOCIAL HISTORY Social History Tobacco Use Smoking status: Former Current packs/day: 0.00 Types: Cigarettes Start date: 03/04/1985 Quit date: 03/04/1995 Years since quittin.5 Smokeless tobacco: Never Vaping Use Vaping status: Never Used Substance Use Topics Alcohol use: Yes Comment: occasionally Drug use: No REVIEW OF SYSTEMS See HPI OBJECTIVE: BP 177/93 Pulse 69 Temp 36.9 C (98.5 F) (Left Tympanic) Resp 16 Wt 68.6 kg (151 lb 3.2 oz) SpO2 100% BMI 23.68 kg/m APPEARANCE Well appearing, alert, in no acute distress, well-hydrated, well nourished. EYES PERRLA, conjunctiva and sclera normal. EARS External ears normal, canals clear NOSE/SINUS Nares normal. Septum midline. Mucosa normal. No drainage or sinus tenderness. THROAT normal, no erythema NECK Supple, no adenopathy; thyroid symmetric, normal size, no bruits HEART RRR with normal S1 and S2 appreciated LUNG clear to auscultation, No wheezing, rhonchi, rales. ABDOMEN bowel sounds normoactive, no bruits, soft, non-tender, non-distended, without organomegaly or palpable masses, no tenderness to palpation, negative Watkins's, McBurney's, Rovsing's. No rebound, rigidity or guarding. ASSESSMENT/PLAN: 1. Acute maxillary sinusitis, recurrence not specified - ICD9: 461.0, ICD10: J01.00 - Will begin treatment with as per antibiotic as written, see orders - The patient should also be given warm salt water gargles, throat lozenges and/or OTC throat sprayas needed and nasal saline gtts and suction prn for the first 5-7 days of treatment. - Supportive care with plenty of fluids, rest, and analgesia prn. - Follow up in 3-5 days if symptoms persist or worsen. Discussed saline nasal rinse. Avoid Flonase with recent epistaxis. - AMOXICILLIN 875 MG-POTASSIUM CLAVULANATE 125 MG TABLET - BENZONATATE 100 MG CAPSULE 2. Hypertension, unspecified type - ICD9: 401.9, ICD10: I10 - Uncontrolled Keep appointment next week with nephrology. Reviewed red flags and when to seek care sooner. The patient indicates understanding of these issues and agrees with the plan. Dylan Cole PA-C documented in this encounterUniversity [facility]als [facility]02-26-2025 Telephone encounter Note * Telephone Encounter - Bernadette Daily MA - 09/15/2024 2:08 PM EST Please see pt home bp readings Bernadette Daily MA [facility]02-26-2025 Miscellaneous Notes* Telephone Encounter - Bernadette Daily MA - 09/15/2024 2:08 PM EST Please see pt home bp readings Bernadette Daily MA documented in this encounterUniversity Hospitals [facility]02-11-2025 Instructions* Patient Instructions* Ivory Espinoza APRN.CNP - 08/31/2024 1:57 PM EST Schedule with nephrology Send me your BPs in 2 weeks Stop the hydrochlorothiazide Continue the losartan Start the chlorthalidone documented in this encounterUniversity Hospitals [facility]02-11-2025 NoteHNO ID: [id number] Author: IVORY ESPINOZA APRN.LAQUITA Service: ? Author Type: Nurse Practitioner Type: Progress Notes Filed: 09/01/2024 19:08 Note Text: Chief Complaint Patient presents with: Follow Up: Hypertension HPI Isa Tovar is a 54 year old female who presents here today for Above Complaints.. Home BP-in general 160's/90's. Is asymptomatic-denies h/a, chest pain, SOB, palpitations. Has been taking her medications as ordered. Father is in his 80's and has hx of resistant HTN and has been seeing nephrology for this over the past year or so. Past medical history, appointments, medications, allergies reviewed. Previous Medical History PAST MEDICAL HISTORY Diagnosis Date Depression Previous Surgical History PAST SURGICAL HISTORY Procedure Laterality Date COLONOSCOPY SCREENING 08/16/2022 repeat in 5 years, poor bowel prep EXCISION GANGLION WRIST DORSAL/VOLAR PRIMARY Right 08/30/2022 Excision ganglion cyst right wrist and open palmar fasciectomy HAND SURGERY HX Right Dr. Dougherty TONSILLECTOMY PRIMARY/SECONDARY Tonsillectomy VAGINAL HYSTERECTOMY UTERUS 250 GM/< 07/21/2008 Hysterectomy, vaginal Family History FAMILY HISTORY Problem Relation Age of Onset Hypertension Mother Hypertension Father Hypertension Maternal Grandmother Heart Maternal Grandmother Hypertension Sister Heart Brother congenital valve dx, valve replacement/repair Patient Allergies ALLERGIES Allergen Reactions Amlodipine Intolerance Pedal edema Lisinopril Cough Current Medications Current Outpatient Medications on File Prior to Visit Medication Sig cloNIDine HCl (CATAPRES) 0.1 mg tablet Take 0.1 mg by mouth two times a day. (Patient not taking: Reported on 08/31/2024) cloNIDine HCl (CATAPRES) 0.1 mg tablet Take 1 tablet by mouth two times a day. losartan (COZAAR) 100 mg tablet Take 1 tablet by mouth once daily. hydroCHLOROthiazide 25 mg tablet Take 1 tablet by mouth once daily. FLUoxetine (PROZAC) 40 mg capsule Take 1 capsule by mouth two times a day. In addition to 20mg capsule for total of 60mg daily multivitamin tablet Take 1 tablet by mouth once daily. famotidine (PEPCID) 20 mg tablet Take 1 tablet by mouth at bedtime as needed. Jyhtavr-Xcbaeplkc-Ptxt tab Take by mouth. No current facility-administered medications on file prior to visit. Social History Social History Tobacco Use Smoking status: Former Current packs/day: 0.00 Types: Cigarettes Start date: 03/04/1985 Quit date: 03/04/1995 Years since quittin.5 Smokeless tobacco: Never Vaping Use Vaping status: Never Used Substance Use Topics Alcohol use: Yes Comment: occasionally Drug use: No Last 14 BP Last 14 Encounter BP Readings: Date: BP: 08/31/2024 172/90[bp wilfredo average[ 08/13/2024 162/84 07/29/2024 154/88 07/01/2024 144/88[recheck bp[ 06/02/2024 163/96[bp Wilfredo average[ 05/05/2024 146/90 04/27/2024 181/97 08/01/2023 142/90 11/03/2022 130/72 10/22/2022 134/88 08/30/2022 102/59 08/16/2022 136/73 07/31/2022 160/76 06/28/2022 148/86 Review of Symptoms REVIEW OF SYSTEMS See HPI, otherwise negative EXAM: BP 172/90 (BP Site: Left Arm, BP Position: Sitting, BP Cuff Size: Regular Adult) Pulse 72 Resp 14 Wt 72 kg (158 lb 12.8 oz) SpO2 98% BMI 24.87 kg/m? General Appearance: Well appearing, alert, in no acute distress, well-hydrated, well nourished.. Lungs: Lungs clear to auscultation. No wheezing, rhonchi, rales.. Heart: RRR without murmur, gallop, or rubs. No ectopy. Psychiatric: pleasant, cooperative. Health Maintenance List Anxiety Screening Never done BP Controlled (<130/80) Never done Shingrix Vaccine(1 of 2) Never done Pneumococcal Vaccine: 50+(1 of 1 - PCV) Never done Mammogram Screening due on 08/23/2023 Influenza Vaccine(1) due on 01/17/2025 Covid-19 Vaccine( - 2023- season) due on 08/13/2025 Annual PCP Team Chronic Disease Visit due on 08/13/2025 Diabetes Screening due on 08/01/2026 Colorectal Cancer Screening due on 08/16/2027 Lipid Screening due on 08/01/2028 DTaP,Tdap,Td Vaccine(2 - Td or Tdap) due on 03/21/2032 Hepatitis B Vaccine Discontinued Cervical Cancer Screening Discontinued Hepatitis C Screening Discontinued HIV Screening Discontinued Data reviewed Previous records, office notes ASSESSMENT/PLAN: 1. Resistant hypertension - ICD9: 401.9, ICD10: I1A.0 Stop hctz, begin chlorthalidone. She will monitor and record her BP 2x daily and send Vidable message in 2 weeks with results. Will likely increase at that point. 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 - CONSULT TO NEPHROLOGY - CHLORTHALIDONE 25 MG TABLET Ivory Espinoza APRN.[facility] History of Present illness Narrative* Ivory Espinoza APRN.SCREEN PRINTER HELPER - 08/31/2024 1:43 PM EST Chief Complaint Patient presents with: Follow Up: Hypertension HPI Isa Tovar is a 54 year old female who presents here today for Above Complaints.. Home BP-in general 160's/90's. Is asymptomatic-denies h/a, chest pain, SOB, palpitations. Has been taking her medications as ordered. Father is in his 80's and has hx of resistant HTN and has been seeing nephrology for this over the past year or so. Past medical history, appointments, medications, allergies reviewed. Previous Medical History PAST MEDICAL HISTORY Diagnosis Date Depression Previous Surgical History PAST SURGICAL HISTORY Procedure Laterality Date COLONOSCOPY SCREENING 08/16/2022 repeat in 5 years, poor bowel prep EXCISION GANGLION WRIST DORSAL/VOLAR PRIMARY Right 08/30/2022 Excision ganglion cyst right wrist and open palmar fasciectomy HAND SURGERY HX Right Dr. Dougherty TONSILLECTOMY PRIMARY/SECONDARY <AGE 12 Tonsillectomy VAGINAL HYSTERECTOMY UTERUS 250 GM/< 07/21/2008 Hysterectomy, vaginal Family History FAMILY HISTORY Problem Relation Age of Onset Hypertension Mother Hypertension Father Hypertension Maternal Grandmother Heart Maternal Grandmother Hypertension Sister Heart Brother congenital valve dx, valve replacement/repair Patient Allergies ALLERGIES Allergen Reactions Amlodipine Intolerance Pedal edema Lisinopril Cough Current Medications Current Outpatient Medications on File Prior to Visit Medication Sig cloNIDine HCl (CATAPRES) 0.1 mg tablet Take 0.1 mg by mouth two times a day. (Patient not taking: Reported on 08/31/2024) cloNIDine HCl (CATAPRES) 0.1 mg tablet Take 1 tablet by mouth two times a day. losartan (COZAAR) 100 mg tablet Take 1 tablet by mouth once daily. hydroCHLOROthiazide 25 mg tablet Take 1 tablet by mouth once daily. FLUoxetine (PROZAC) 40 mg capsule Take 1 capsule by mouth two times a day. In addition to 20mg capsule for total of 60mg daily multivitamin tablet Take 1 tablet by mouth once daily. famotidine (PEPCID) 20 mg tablet Take 1 tablet by mouth at bedtime as needed. Frrveej-Jdkqhtkvc-Gotl tab Take by mouth. No current facility-administered medications on file prior to visit. Social History Social History Tobacco Use Smoking status: Former Current packs/day: 0.00 Types: Cigarettes Start date: 03/04/1985 Quit date: 03/04/1995 Years since quittin.5 Smokeless tobacco: Never Vaping Use Vaping status: Never Used Substance Use Topics Alcohol use: Yes Comment: occasionally Drug use: No Last 14 BP Last 14 Encounter BP Readings: Date: BP: 08/31/2024 172/90[bp wilfredo average[ 08/13/2024 162/84 07/29/2024 154/88 07/01/2024 144/88[recheck bp[ 06/02/2024 163/96[bp Wilfredo average[ 05/05/2024 146/90 04/27/2024 181/97 08/01/2023 142/90 11/03/2022 130/72 10/22/2022 134/88 08/30/2022 102/59 08/16/2022 136/73 07/31/2022 160/76 06/28/2022 148/86 Review of Symptoms REVIEW OF SYSTEMS See HPI, otherwise negative EXAM: BP 172/90 (BP Site: Left Arm, BP Position: Sitting, BP Cuff Size: Regular Adult) Pulse 72 Resp 14 Wt 72 kg (158 lb 12.8 oz) SpO2 98% BMI 24.87 kg/m General Appearance: Well appearing, alert, in no acute distress, well-hydrated, well nourished.. Lungs: Lungs clear to auscultation. No wheezing, rhonchi, rales.. Heart: RRR without murmur, gallop, or rubs. No ectopy. Psychiatric: pleasant, cooperative. Health Maintenance List Anxiety Screening Never done BP Controlled (<130/80) Never done Shingrix Vaccine(1 of 2) Never done Pneumococcal Vaccine: 50+(1 of 1 - PCV) Never done Mammogram Screening due on 08/23/2023 Influenza Vaccine(1) due on 01/17/2025 Covid-19 Vaccine( - season) due on 08/13/2025 Annual PCP Team Chronic Disease Visit due on 08/13/2025 Diabetes Screening due on 08/01/2026 Colorectal Cancer Screening due on 08/16/2027 Lipid Screening due on 08/01/2028 DTaP,Tdap,Td Vaccine(2 - Td or Tdap) due on 03/21/2032 Hepatitis B Vaccine Discontinued Cervical Cancer Screening Discontinued Hepatitis C Screening Discontinued HIV Screening Discontinued Data reviewed Previous records, office notes ASSESSMENT/PLAN: 1. Resistant hypertension - ICD9: 401.9, ICD10: I1A.0 Stop hctz, begin chlorthalidone. She will monitor and record her BP 2x daily and send Vidable message in 2 weeks with results. Will likely increase at that point. 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 - CONSULT TO NEPHROLOGY - CHLORTHALIDONE 25 MG TABLET Ivory Espinoza APRN.CNP documented in this encounterUniversity [facility]01-[facility] Telephone encounter Note * Telephone Encounter - Oly Gardner - 08/14/2024 8:59 AM EST Called patient and scheduled as directed [facility]01-25-2025 Miscellaneous Notes* Telephone Encounter - Oly Gardner - 08/14/2024 8:59 AM EST Called patient and scheduled as directed * Telephone Encounter - Bernadette Daily MA - 08/13/2024 3:47 PM EST Pt informed Please schedule US Bernadette Daily MA * Telephone Encounter - Iza Simms APRN.CNP - 08/13/2024 2:51 PM EST Please call patient and let her know that I did decide to add on some lab work and an US of kidneysdue to resistant HTN work-up. Please help her schedule this and have her get lab work done sometimebefore follow-up appointment. Thank you, Iza Simms APRN.SCREEN PRINTER HELPER documented in this encounterUniversity [facility]als [facility]01-24-2025 Telephone encounter Note * Telephone Encounter - Bernadette Daily MA - 08/13/2024 3:47 PM EST Pt informed Please schedule US Bernadette Daily MA [facility]01-24-2025 Telephone encounter Note* Telephone Encounter - Iza Simms APRN.CNP - 08/13/2024 2:51 PM EST Please call patient and let her know that I did decide to add on some lab work and an US of kidneysdue to resistant HTN work-up. Please help her schedule this and have her get lab work done sometimebefore follow-up appointment. Thank you, Iza Simms APRN.SCREEN PRINTER HELPER [facility]01-24-2025 History of Present illness Narrative* Iza Simms APRN.CNP - 08/13/2024 1:00 PM EST Chief Complaint Patient presents with: b/p elavation in er HPI Isa Tovar is a 54 year old female who presents here today for Above Complaints. Lupe is an established patient of Dr. Chiki DO. Concerns today... ER follow-up -- [facility] ER visit on 08/07 d/t elevated BP. Ivory Espinoza CNP has been managing and adjusting HTN medication regimen. Numerous changes made of the last 2 months d/t intolerance or side effects of medications. In ER, she was given 5mg IV hydralazine. Losartan was increased to 100 mg daily. EKG, CXR, CBC, BMP, and trop was all normal/unremarkable. Dx with hypertensive urgency and discharged home with increased losartan regimen. Was switched from lisinopril d/t cough. Discontinued from amlodipine d/t leg edema. Increasing losartan d/t poor control of BP. Today... Ongoing elevated B since April. Taking losartan 100 mg since ER visit. Utilizing prn clonidine as needed when systolic BP is > 175. Has needed to take this 5 x since ER visit. Checking BP at home and has been fluctuating from 130-180/70-110. Rarely ever at goal thought per pt. EKG and ECHO completed in April and were normal. Significant family history of HTN. She denies chest pain, shortness of breath, palpitations, dizziness, leg edema, headaches, or vision changes. Does report very mild chest heaviness occasionally but none currently. Reports drinking lots of water/fluids. Urinating frequently, up numerous x per night to pee. Past medical history, appointments, medications, allergies reviewed. Previous Medical History PAST MEDICAL HISTORY Diagnosis Date Depression Previous Surgical History PAST SURGICAL HISTORY Procedure Laterality Date COLONOSCOPY SCREENING 08/16/2022 repeat in 5 years, poor bowel prep EXCISION GANGLION WRIST DORSAL/VOLAR PRIMARY Right 08/30/2022 Excision ganglion cyst right wrist and open palmar fasciectomy HAND SURGERY HX Right Dr. Dougherty TONSILLECTOMY PRIMARY/SECONDARY <AGE 12 Tonsillectomy VAGINAL HYSTERECTOMY UTERUS 250 GM/< 07/21/2008 Hysterectomy, vaginal Family History FAMILY HISTORY Problem Relation Age of Onset Hypertension Mother Hypertension Father Hypertension Maternal Grandmother Heart Maternal Grandmother Hypertension Sister Heart Brother congenital valve dx, valve replacement/repair Patient Allergies ALLERGIES Allergen Reactions Amlodipine Intolerance Pedal edema Lisinopril Cough Current Medications Current Outpatient Medications on File Prior to Visit Medication Sig FLUoxetine (PROZAC) 40 mg capsule Take 1 capsule by mouth two times a day. In addition to 20mg capsule for total of 60mg daily losartan (COZAAR) 50 mg tablet Take 1 tablet by mouth once daily. multivitamin tablet Take 1 tablet by mouth once daily. famotidine (PEPCID) 20 mg tablet Take 1 tablet by mouth at bedtime as needed. Nswyewk-Sydokohmz-Njbg tab Take by mouth. No current facility-administered medications on file prior to visit. Social History Social History Tobacco Use Smoking status: Former Current packs/day: 0.00 Types: Cigarettes Start date: 03/04/1985 Quit date: 03/04/1995 Years since quittin.4 Smokeless tobacco: Never Vaping Use Vaping status: Never Used Substance Use Topics Alcohol use: Yes Comment: occasionally Drug use: No REVIEW OF SYSTEMS: as above Reviewed relevant PMHx, PSHx, Social Hx, current medications and allergies. Review of Symptoms REVIEW OF SYSTEMS See HPI. EXAM: BP 162/84 (BP Site: Left Arm, BP Position: Sitting, BP Cuff Size: Regular Adult) Pulse 67 Resp 14 Wt 71.8 kg (158 lb 3.2 oz) SpO2 96% BMI 24.78 kg/m General Appearance: Well appearing, alert, in no acute distress, well-hydrated, well nourished.. Skin: Skin color, texture, turgor normal, no suspicious rashes or lesions. Head: Normocephalic, no masses, lesions, tenderness or abnormalities. Lungs: Lungs clear to auscultation. No wheezing, rhonchi, rales.. Heart: RRR without murmur, gallop, or rubs. No ectopy. Health Maintenance List Anxiety Screening Never done BP Controlled (<130/80) Never done Shingrix Vaccine(1 of 2) Never done Pneumococcal Vaccine: 50+(1 of 1 - PCV) Never done Mammogram Screening due on 08/23/2023 Influenza Vaccine(1) due on 01/17/2025 Covid-19 Vaccine(1 - 2023- season) due on 08/13/2025 Annual PCP Team Chronic Disease Visit due on 08/13/2025 Diabetes Screening due on 08/01/2026 Colorectal Cancer Screening due on 08/16/2027 Lipid Screening due on 08/01/2028 DTaP,Tdap,Td Vaccine(2 - Td or Tdap) due on 03/21/2032 Hepatitis B Vaccine Discontinued Cervical Cancer Screening Discontinued Hepatitis C Screening Discontinued HIV Screening Discontinued ASSESSMENT/PLAN: 1. Primary hypertension - ICD9: 401.9, ICD10: I10 Uncontrolled HTN despite increasing medication regimen. New onset since April. Unknown etiology. Likely genetic with family history but unknown due to recent significant elevation in BP. Reports drinking lots of water/fluids. Urinating frequently, up numerous x per night to pee. kidneyfunction normal in ER. - Resistant hypertension workup ordered: Aldosterone to renin ratio and Renal artery duplex ultrasound - Uncontrolled - Continue current medications - Start hydrochlorothiazide 25 mg daily. Continue losartan 100 mg daily. Continue to utilize clonidine as needed with systolic BP > 170. RTO in 4 weeks to reassess. Stress test due to BP not responding to medications. Discussed - Recommend home blood pressure monitoring, to bring results to next visit - Encouraged sodium restriction, DASH or Mediterranean diet - Recommend regular aerobic exercise - Follow up in 4 weeks for hypertension visit - CLONIDINE HCL 0.1 MG TABLET - CLONIDINE HCL 0.1 MG TABLET - LOSARTAN 100 MG TABLET - EXERCISE STRESS ECG (WITHOUT IMAGING) - HYDROCHLOROTHIAZIDE 25 MG TABLET RTO in 4 weeks, sooner if needed. Prescription instructions reviewed with patient as applicable. Potential red flag symptoms discussed with the patient. Reviewed appropriate action plan to take if red flag symptoms occur. Patient agreeable to treatment plan. Iza Sanchez APRN.CNP [address] [place] [address] documented in this encounterUniversity Hospitals [facility]01-24-2025 NoteHNO ID: [id number] Author: IZA SIMMS APRN.CNP Service: ? Author Type: Nurse Practitioner Type: Progress Notes Filed: 08/13/2024 14:51 Note Text: Chief Complaint Patient presents with: b/p elavation in er HPI Isa Tovar is a 54 year old female who presents here today for Above Complaints. Lupe is an established patient of Dr. Chiki DO. Concerns today... ER follow-up -- [facility] ER visit on 08/07 d/t elevated BP. Ivory Espinoza CNP has been managing and adjusting HTN medication regimen. Numerous changes made of the last 2 months d/t intolerance or side effects of medications. In ER, she was given 5mg IV hydralazine. Losartan was increased to 100 mg daily. EKG, CXR, CBC, BMP, and trop was all normal/unremarkable. Dx with hypertensive urgency and discharged home with increased losartan regimen. Was switched from lisinopril d/t cough. Discontinued from amlodipine d/t leg edema. Increasing losartan d/t poor control of BP. Today... Ongoing elevated B since April. Taking losartan 100 mg since ER visit. Utilizing prn clonidine as needed when systolic BP is > 175. Has needed to take this 5 x since ER visit. Checking BP at home and has been fluctuating from 130-180/70-110. Rarely ever at goal thought per pt. EKG and ECHO completed in April and were normal. Significant family history of HTN. She denies chest pain, shortness of breath, palpitations, dizziness, leg edema, headaches, or vision changes. Does report very mild chest heaviness occasionally but none currently. Reports drinking lots of water/fluids. Urinating frequently, up numerous x per night to pee. Past medical history, appointments, medications, allergies reviewed. Previous Medical History PAST MEDICAL HISTORY Diagnosis Date Depression Previous Surgical History PAST SURGICAL HISTORY Procedure Laterality Date COLONOSCOPY SCREENING 08/16/2022 repeat in 5 years, poor bowel prep EXCISION GANGLION WRIST DORSAL/VOLAR PRIMARY Right 08/30/2022 Excision ganglion cyst right wrist and open palmar fasciectomy HAND SURGERY HX Right Dr. Dougherty TONSILLECTOMY PRIMARY/SECONDARY Tonsillectomy VAGINAL HYSTERECTOMY UTERUS 250 GM/< 07/21/2008 Hysterectomy, vaginal Family History FAMILY HISTORY Problem Relation Age of Onset Hypertension Mother Hypertension Father Hypertension Maternal Grandmother Heart Maternal Grandmother Hypertension Sister Heart Brother congenital valve dx, valve replacement/repair Patient Allergies ALLERGIES Allergen Reactions Amlodipine Intolerance Pedal edema Lisinopril Cough Current Medications Current Outpatient Medications on File Prior to Visit Medication Sig FLUoxetine (PROZAC) 40 mg capsule Take 1 capsule by mouth two times a day. In addition to 20mg capsule for total of 60mg daily losartan (COZAAR) 50 mg tablet Take 1 tablet by mouth once daily. multivitamin tablet Take 1 tablet by mouth once daily. famotidine (PEPCID) 20 mg tablet Take 1 tablet by mouth at bedtime as needed. Sfakswq-Eflxhjdcf-Vdbq tab Take by mouth. No current facility-administered medications on file prior to visit. Social History Social History Tobacco Use Smoking status: Former Current packs/day: 0.00 Types: Cigarettes Start date: 03/04/1985 Quit date: 03/04/1995 Years since quittin.4 Smokeless tobacco: Never Vaping Use Vaping status: Never Used Substance Use Topics Alcohol use: Yes Comment: occasionally Drug use: No REVIEW OF SYSTEMS: as above Reviewed relevant PMHx, PSHx, Social Hx, current medications and allergies. Review of Symptoms REVIEW OF SYSTEMS See HPI. EXAM: BP 162/84 (BP Site: Left Arm, BP Position: Sitting, BP Cuff Size: Regular Adult) Pulse 67 Resp 14 Wt 71.8 kg (158 lb 3.2 oz) SpO2 96% BMI 24.78 kg/m? General Appearance: Well appearing, alert, in no acute distress, well-hydrated, well nourished.. Skin: Skin color, texture, turgor normal, no suspicious rashes or lesions. Head: Normocephalic, no masses, lesions, tenderness or abnormalities. Lungs: Lungs clear to auscultation. No wheezing, rhonchi, rales.. Heart: RRR without murmur, gallop, or rubs. No ectopy. Health Maintenance List Anxiety Screening Never done BP Controlled (<130/80) Never done Shingrix Vaccine(1 of 2) Never done Pneumococcal Vaccine: 50+(1 of 1 - PCV) Never done Mammogram Screening due on 08/23/2023 Influenza Vaccine(1) due on 01/17/2025 Covid-19 Vaccine( - 2023- season) due on 08/13/2025 Annual PCP Team Chronic Disease Visit due on 08/13/2025 Diabetes Screening due on 08/01/2026 Colorectal Cancer Screening due on 08/16/2027 Lipid Screening due on 08/01/2028 DTaP,Tdap,Td Vaccine(2 - Td or Tdap) due on 03/21/2032 Hepatitis B Vaccine Discontinued Cervical Cancer Screening Discontinued Hepatitis C Screening Discontinued HIV Screening Discontinued ASSESSMENT/PLAN: 1. Primary hypertension - ICD9: 40 (more content not included)...[facility]01-23-[facility] Telephone encounter Note* Telephone Encounter - SimmsIza braun APRN.CNP - 08/12/2024 3:21 PM EST Yes, needs appointment. Thank you, Iza Simms APRN.SCREEN PRINTER HELPER [facility] Work Phone: [phone]) 106-649301-23-2025 Miscellaneous Notes* Telephone Encounter - Iza Simms APRN.CNP - 08/12/2024 3:21 PM EST Yes, needs appointment. Thank you, Iza Simms APRN.SCREEN PRINTER HELPER * Telephone Encounter - Bernadette Daily MA - 08/12/2024 3:18 PM EST Please adivse. Would you like pt to schedule ER follow up Bernadette Daily MA * Telephone Encounter - Ivory Espinoza APRN.CNP - 08/06/2024 12:58 PM EST Please have someone triage this and consider sending her to the ER. Ivory Espinoza APRN.LAQUITA * Telephone Encounter - Bernadette Daily MA - 08/06/2024 12:53 PM EST Please see pt message. Will place on triage schedule to further triage. Bernadette Daily MA documented in this encounterUniversity Hospitals [facility]01-23-2025 Telephone encounter Note * Telephone Encounter - Bernadette Daily MA - 08/12/2024 3:18 PM EST Please adivse. Would you like pt to schedule ER follow up Bernadette Daily MA [facility]01-17-2025 Telephone encounter Note* Telephone Encounter - Juliet Villaseñor RN - 08/06/2024 1:49 PM EST Patient contacted and agreeable to ER. Plans to go to [facility] ER. Juliet Villaseñor RN [facility]01-17-2025 Miscellaneous Notes* Telephone Encounter - Juliet Villaseñor RN - 08/06/2024 1:49 PM EST Patient contacted and agreeable to ER. Plans to go to [facility] ER. Juliet Villaseñor RN * Telephone Encounter - Ivory Espinoza APRN.CNP - 08/06/2024 1:32 PM EST Agree with need for ER evaluation. Ivory Espinoza APRN.LAQUITA * Telephone Encounter - Juliet Villaseñor RN - 08/06/2024 1:09 PM EST Triage Protocol recommended: (Upgraded) PCP to advise. Pt aware to proceed the nearest ER for severe sx's as discussed during call. Per recent OV note form 07/29/24, provider states consideration to increase pt's Losartan in the future, if needed. Please call patient with advise. Reason for Disposition Systolic BP >= 180 OR Diastolic >= 110 Answer Assessment - Initial Assessment Questions Pt contacted by this triage nurse for triage of sx's as sates in today 's [facility] message. Pt reports her BP at 12:30 pm today was 195/99. Reports recent BP's are: 07/30- 148/78 07/31- 178/93 08/01- 145/73 08/02- 174/94 14- 194/90 15- 180/92 16- 204/82 08/06- 195/99, 12:30 pm Takes Losartan 50 mg daily in morning. Reports headache, not severe. Reports feels a little dizzy if turns quickly. Denies feeling like passing out. Reports this is not new and that she has been experiencing these sx's from time to time and provider is aware. Medication adjustments have been made recently. 1. BLOOD PRESSURE:at 12:30 today BP was 195/99 2. ONSET: has had HTN for over a month and has been working with PCP regarding this 3. HOW: home BP cuff 4. HISTORY: yes 5. MEDICINES: Losartan 50 mg daily, last dose was taken at 8 am this morning 6. OTHER SYMPTOMS: Denies blurred vision, chest pain, difficulty breathing, or weakness 7. : no Protocols used: Blood Pressure - [id number] documented in this encounterUniversity Hospitals [facility]01-17-2025 Telephone encounter Note * Telephone Encounter - Ivory Espinoza APRN.CNP - 08/06/2024 1:32 PM EST Agree with need for ER evaluation. Ivory Espinoza APRN.CNP [facility]01-17-2025 Telephone encounter Note* Telephone Encounter - Juliet Villaseñor RN - 08/06/2024 1:09 PM EST Triage Protocol recommended: (Upgraded) PCP to advise. Pt aware to proceed the nearest ER for severe sx's as discussed during call. Per recent OV note form 07/29/24, provider states consideration to increase pt's Losartan in the future, if needed. Please call patient with advise. Reason for Disposition Systolic BP >= 180 OR Diastolic >= 110 Answer Assessment - Initial Assessment Questions Pt contacted by this triage nurse for triage of sx's as sates in today 's message. Pt reports her BP at 12:30 pm today was 195/99. Reports recent BP's are: 07/30- 148/78 07/31- 178/93 08/01- 145/73 08/02- 174/94 08/03- 194/90 15- 180/92 16- 204/82 08/06- 195/99, 12:30 pm Takes Losartan 50 mg daily in morning. Reports headache, not severe. Reports feels a little dizzy if turns quickly. Denies feeling like passing out. Reports this is not new and that she has been experiencing these sx's from time to time and provider is aware. Medication adjustments have been made recently. 1. BLOOD PRESSURE:at 12:30 today BP was 195/99 2. ONSET: has had HTN for over a month and has been working with PCP regarding this 3. HOW: home BP cuff 4. HISTORY: yes 5. MEDICINES: Losartan 50 mg daily, last dose was taken at 8 am this morning 6. OTHER SYMPTOMS: Denies blurred vision, chest pain, difficulty breathing, or weakness 7. : no Protocols used: Blood Pressure - [id number] [facility]01-17-2025 Telephone encounter Note* Telephone Encounter - Ivory Espinoza APRN.CNP - 08/06/2024 12:58 PM EST Please have someone triage this and consider sending her to the ER. Ivory Espinoza APRN.CNP [facility]01-17-2025 Telephone encounter Note* Telephone Encounter - Bernadette Daily MA - 08/06/2024 12:53 PM EST Please see pt message. Will place on triage schedule to further triage. Bernadette Daily MA [facility]01-09-2025 NoteHNO ID: [id number] Author: IVORY ESPINOZA APRN.[facility] Service: ? Author Type: Nurse Practitioner Type: Progress Notes Filed: 07/29/2024 15:49 Note Text: Chief Complaint Patient presents with: BP Check: Has not started new med change- see message 07/20 HPI Isa Tovar is a 54 year old female who presents here today for Above Complaints. BP-ran out of amlodipine on 07/22 and ankle swelling resolved 2 days later. Has continued losartan 25mg daily. A few home Bps have been up to 170-180 systolic. Does get a headache when this happens. Overall home Bps since off the amlodipine have been 150's systolic. Prozac-increased from 40mg to 60mg about a month ago. Still feeling kind of down and lack of motivation. Wondering if medication could be increased a little bit more. Past medical history, appointments, medications, allergies reviewed. Previous Medical History PAST MEDICAL HISTORY Diagnosis Date Depression Previous Surgical History PAST SURGICAL HISTORY Procedure Laterality Date COLONOSCOPY SCREENING 08/16/2022 repeat in 5 years, poor bowel prep EXCISION GANGLION WRIST DORSAL/VOLAR PRIMARY Right 08/30/2022 Excision ganglion cyst right wrist and open palmar fasciectomy HAND SURGERY HX Right Dr. Dougherty TONSILLECTOMY PRIMARY/SECONDARY Tonsillectomy VAGINAL HYSTERECTOMY UTERUS 250 GM/< 07/21/2008 Hysterectomy, vaginal Family History FAMILY HISTORY Problem Relation Age of Onset Hypertension Mother Hypertension Father Hypertension Maternal Grandmother Heart Maternal Grandmother Hypertension Sister Heart Brother congenital valve dx, valve replacement/repair Patient Allergies ALLERGIES Allergen Reactions Lisinopril Cough Current Medications Current Outpatient Medications on File Prior to Visit Medication Sig losartan (COZAAR) 50 mg tablet Take 1 tablet by mouth once daily. amLODIPine (NORVASC) 5 mg tablet Take 1 tablet by mouth once daily. FLUoxetine (PROZAC) 40 mg capsule Take 1 capsule by mouth once daily. In addition to 20mg capsule for total of 60mg daily FLUoxetine (PROZAC) 20 mg capsule Take 1 capsule by mouth once daily. In addition to 40mg capsule for total of 60mg daily multivitamin tablet Take 1 tablet by mouth once daily. famotidine (PEPCID) 20 mg tablet Take 1 tablet by mouth at bedtime as needed. Rpirpto-Whkqkeaho-Aplb tab Take by mouth. No current facility-administered medications on file prior to visit. Social History Social History Tobacco Use Smoking status: Former Current packs/day: 0.00 Types: Cigarettes Start date: 03/04/1985 Quit date: 03/04/1995 Years since quittin.4 Smokeless tobacco: Never Vaping Use Vaping status: Never Used Substance Use Topics Alcohol use: Yes Comment: occasionally Drug use: No Review of Symptoms REVIEW OF SYSTEMS See HPI, otherwise negative EXAM: BP 154/88 (BP Site: Left Arm, BP Position: Sitting, BP Cuff Size: Regular Adult) Pulse 61 Wt 70.9 kg (156 lb 3.2 oz) SpO2 100% BMI 24.46 kg/m? General Appearance: Well appearing, alert, in no acute distress, well-hydrated, well nourished.. Lungs: Lungs clear to auscultation. No wheezing, rhonchi, rales.. Heart: RRR without murmur, gallop, or rubs. No ectopy. Psychiatric: pleasant, cooperative. Health Maintenance List Anxiety Screening Never done BP Controlled (<130/80) Never done Pneumococcal Vaccine: 50+(1 of 1 - PCV) Never done Mammogram Screening due on 08/23/2023 Influenza Vaccine(1) due on 03/21/2024 Covid-19 Vaccine( - season) Never done Shingrix Vaccine(1 of 2) due on 08/01/2024 Annual PCP Team Chronic Disease Visit due on 07/01/2025 Diabetes Screening due on 08/01/2026 Colorectal Cancer Screening due on 08/16/2027 Lipid Screening due on 08/01/2028 DTaP,Tdap,Td Vaccine(2 - Td or Tdap) due on 03/21/2032 Hepatitis B Vaccine Discontinued Cervical Cancer Screening Discontinued Hepatitis C Screening Discontinued HIV Screening Discontinued Data reviewed Previous records, office notes ASSESSMENT/PLAN: 1. Primary hypertension - ICD9: 401.9, ICD10: I10 (primary diagnosis) Discontinue the amlodipine-placed on allergy/intolerance list due to edema Increase losartan to 50mg daily. Will send [employer] message in 2 weeks with update of daily BP and HR results. At that point may consider increase to 100mg losartan at that time. She will f/u in the office in 1 month. 2. Dysthymia - ICD9: 300.4, ICD10: F34.1 Increase fluoxetine to 80mg daily. Will f/u in the office in 1 month for reevaluation. May consider cutting the fluoxetine back and/or adding another medication such as bupropion. - FLUOXETINE 40 MG CAPSULE - FLUOXETINE 40 MG CAPSULE [facility] APR[facility] History of Present illness Narrative* Ivory Espinoza APRN.[facility] - 07/29/2024 12:20 PM EST Chief Complaint Patient presents with: BP Check: Has not started new med change- see message 07/20 HPI Isa Tovar is a 54 year old female who presents here today for Above Complaints. BP-ran out of amlodipine on 07/22 and ankle swelling resolved 2 days later. Has continued losartan 25mg daily. A few home Bps have been up to 170-180 systolic. Does get a headache when this happens. Overall home Bps since off the amlodipine have been 150's systolic. Prozac-increased from 40mg to 60mg about a month ago. Still feeling kind of down and lack of motivation. Wondering if medication could be increased a little bit more. Past medical history, appointments, medications, allergies reviewed. Previous Medical History PAST MEDICAL HISTORY Diagnosis Date Depression Previous Surgical History PAST SURGICAL HISTORY Procedure Laterality Date COLONOSCOPY SCREENING 08/16/2022 repeat in 5 years, poor bowel prep EXCISION GANGLION WRIST DORSAL/VOLAR PRIMARY Right 08/30/2022 Excision ganglion cyst right wrist and open palmar fasciectomy HAND SURGERY HX Right Dr. Dougherty TONSILLECTOMY PRIMARY/SECONDARY <AGE 12 Tonsillectomy VAGINAL HYSTERECTOMY UTERUS 250 GM/< 07/21/2008 Hysterectomy, vaginal Family History FAMILY HISTORY Problem Relation Age of Onset Hypertension Mother Hypertension Father Hypertension Maternal Grandmother Heart Maternal Grandmother Hypertension Sister Heart Brother congenital valve dx, valve replacement/repair Patient Allergies ALLERGIES Allergen Reactions Lisinopril Cough Current Medications Current Outpatient Medications on File Prior to Visit Medication Sig losartan (COZAAR) 50 mg tablet Take 1 tablet by mouth once daily. amLODIPine (NORVASC) 5 mg tablet Take 1 tablet by mouth once daily. FLUoxetine (PROZAC) 40 mg capsule Take 1 capsule by mouth once daily. In addition to 20mg capsule for total of 60mg daily FLUoxetine (PROZAC) 20 mg capsule Take 1 capsule by mouth once daily. In addition to 40mg capsule for total of 60mg daily multivitamin tablet Take 1 tablet by mouth once daily. famotidine (PEPCID) 20 mg tablet Take 1 tablet by mouth at bedtime as needed. Ghizdec-Grcetjczo-Sssc tab Take by mouth. No current facility-administered medications on file prior to visit. Social History Social History Tobacco Use Smoking status: Former Current packs/day: 0.00 Types: Cigarettes Start date: 03/04/1985 Quit date: 03/04/1995 Years since quittin.4 Smokeless tobacco: Never Vaping Use Vaping status: Never Used Substance Use Topics Alcohol use: Yes Comment: occasionally Drug use: No Review of Symptoms REVIEW OF SYSTEMS See HPI, otherwise negative EXAM: BP 154/88 (BP Site: Left Arm, BP Position: Sitting, BP Cuff Size: Regular Adult) Pulse 61 Wt 70.9 kg (156 lb 3.2 oz) SpO2 100% BMI 24.46 kg/m General Appearance: Well appearing, alert, in no acute distress, well-hydrated, well nourished.. Lungs: Lungs clear to auscultation. No wheezing, rhonchi, rales.. Heart: RRR without murmur, gallop, or rubs. No ectopy. Psychiatric: pleasant, cooperative. Health Maintenance List Anxiety Screening Never done BP Controlled (<130/80) Never done Pneumococcal Vaccine: 50+(1 of 1 - PCV) Never done Mammogram Screening due on 08/23/2023 Influenza Vaccine(1) due on 03/21/2024 Covid-19 Vaccine( season) Never done Shingrix Vaccine(1 of 2) due on 08/01/2024 Annual PCP Team Chronic Disease Visit due on 07/01/2025 Diabetes Screening due on 08/01/2026 Colorectal Cancer Screening due on 08/16/2027 Lipid Screening due on 08/01/2028 DTaP,Tdap,Td Vaccine(2 - Td or Tdap) due on 03/21/2032 Hepatitis B Vaccine Discontinued Cervical Cancer Screening Discontinued Hepatitis C Screening Discontinued HIV Screening Discontinued Data reviewed Previous records, office notes ASSESSMENT/PLAN: 1. Primary hypertension - ICD9: 401.9, ICD10: I10 (primary diagnosis) Discontinue the amlodipine-placed on allergy/intolerance list due to edema Increase losartan to 50mg daily. Will send [employer] message in 2 weeks with update of daily BP and HR results. At that point may consider increase to 100mg losartan at that time. She will f/u in the office in 1 month. 2. Dysthymia - ICD9: 300.4, ICD10: F34.1 Increase fluoxetine to 80mg daily. Will f/u in the office in 1 month for reevaluation. May considercutting the fluoxetine back and/or adding another medication such as bupropion. - FLUOXETINE 40 MG CAPSULE - FLUOXETINE 40 MG CAPSULE Ivory Espinoza APRN.CNP documented in [facility] encounter[facility] Telephone encounter Note * Telephone Encounter - Ivory Espinoza APRN.CNP - 07/28/2024 6:05 PM EST Her ankles are likely swelling because of the increase in the amlodipine. Lat's cut it back to 5mg daily again. We'll increase the losartan to 50mg daily and then send results again in another 2 weeks. The following approved medication requests have been transmitted electronically. Requested Prescriptions Signed Prescriptions Disp Refills losartan (COZAAR) 50 mg tablet 30 tablet 2 Sig: Take 1 tablet by mouth once daily. amLODIPine (NORVASC) 5 mg tablet 30 tablet 2 Sig: Take 1 tablet by mouth once daily. Ivory Espinoza APRN.CNP [facility]01-08-2025 Miscellaneous Notes* Telephone Encounter - Ivory Espinoza APRN.CNP - 07/28/2024 6:05 PM EST Her ankles are likely swelling because of the increase in the amlodipine. Lat's cut it back to 5mg daily again. We'll increase the losartan to 50mg daily and then send results again in another 2 weeks. The following approved medication requests have been transmitted electronically. Requested Prescriptions Signed Prescriptions Disp Refills losartan (COZAAR) 50 mg tablet 30 tablet 2 Sig: Take 1 tablet by mouth once daily. amLODIPine (NORVASC) 5 mg tablet 30 tablet 2 Sig: Take 1 tablet by mouth once daily. Ivory Espinoza APRN.[employer]INTER HELPER * Telephone Encounter - Bernadette Daily MA - 07/23/2024 11:51 AM EST Please see pt message Berandette Daily MA documented in this encounterUniversity [facility]01-[facility]-2025 Telephone encounter Note * Telephone Encounter - Bernadette Daily MA - 07/23/2024 11:51 AM EST Please see pt message Bernadette Daily MA [facility]12-12-2024 NoteHNO ID: [id number] Author: IVORY ESPINOZA APRN.[facility] Service: ? Author Type: Nurse Practitioner Type: Progress Notes Filed: 07/01/2024 15:12 Note Text: Chief Complaint Patient presents with: BP Check HPI Isa Tovar is a 54 year old female who presents here today for Above Complaints.. BP-denies CP, SOB, h/a, palpitations Depression-quiet, doesn't want to do much, mother in September. Just wondering if she would be able to increase her Prozac from 40mg. Past medical history, appointments, medications, allergies reviewed. Previous Medical History PAST MEDICAL HISTORY Diagnosis Date Depression Previous Surgical History PAST SURGICAL HISTORY Procedure Laterality Date COLONOSCOPY SCREENING 08/16/2022 repeat in 5 years, poor bowel prep EXCISION GANGLION WRIST DORSAL/VOLAR PRIMARY Right 08/30/2022 Excision ganglion cyst right wrist and open palmar fasciectomy HAND SURGERY HX Right Dr. Dougherty TONSILLECTOMY PRIMARY/SECONDARY Tonsillectomy VAGINAL HYSTERECTOMY UTERUS 250 GM/< 07/21/2008 Hysterectomy, vaginal Family History FAMILY HISTORY Problem Relation Age of Onset Hypertension Mother Hypertension Father Hypertension Maternal Grandmother Heart Maternal Grandmother Hypertension Sister Heart Brother congenital valve dx, valve replacement/repair Patient Allergies ALLERGIES Allergen Reactions Lisinopril Cough Current Medications Current Outpatient Medications on File Prior to Visit Medication Sig amLODIPine (NORVASC) 10 mg tablet Take 1 tablet by mouth once daily. FLUoxetine (PROZAC) 40 mg capsule Take 1 capsule by mouth once daily. multivitamin tablet Take 1 tablet by mouth once daily. famotidine (PEPCID) 20 mg tablet Take 1 tablet by mouth at bedtime as needed. Hhfskhg-Cpmspzhxq-Cgzs tab Take by mouth. No current facility-administered medications on file prior to visit. Social History Social History Tobacco Use Smoking status: Former Current packs/day: 0.00 Types: Cigarettes Start date: 03/04/1985 Quit date: 03/04/1995 Years since quittin.3 Smokeless tobacco: Never Vaping Use Vaping status: Never Used Substance Use Topics Alcohol use: Yes Comment: occasionally Drug use: No Review of Symptoms REVIEW OF SYSTEMS See HPI, otherwise negative EXAM: BP 158/94 (BP Site: Left Arm, BP Position: Sitting, BP Cuff Size: Regular Adult) Pulse 65 Resp 14 Wt 71.8 kg (158 lb 6.4 oz) SpO2 100% BMI 24.81 kg/m? General Appearance: Well appearing, alert, in no acute distress, well-hydrated, well nourished.. Lungs: Lungs clear to auscultation. No wheezing, rhonchi, rales.. Heart: RRR without murmur, gallop, or rubs. No ectopy. Psychiatric: pleasant, cooperative. Health Maintenance List Anxiety Screening Never done BP Controlled (<130/80) Never done Mammogram Screening due on 08/23/2023 Influenza Vaccine(1) due on 03/21/2024 Covid-19 Vaccine( - season) Never done Shingrix Vaccine(1 of 2) due on 08/01/2024 Annual PCP Team Chronic Disease Visit due on 06/02/2025 Diabetes Screening due on 08/01/2026 Colorectal Cancer Screening due on 08/16/2027 Lipid Screening due on 08/01/2028 DTaP,Tdap,Td Vaccine(2 - Td or Tdap) due on 03/21/2032 Hepatitis B Vaccine Discontinued Cervical Cancer Screening Discontinued Hepatitis C Screening Discontinued HIV Screening Discontinued Data reviewed Previous records, office notes ASSESSMENT/PLAN: 1. Primary hypertension - ICD9: 401.9, ICD10: I10 (primary diagnosis) - Uncontrolled - Recommend home blood pressure monitoring, to bring results to next visit - Encouraged sodium restriction, DASH or Mediterranean diet - Recommend regular aerobic exercise - continue amlodipine 10mg daily. Stop lisinopril d/t cough. Begin losartan 25mg daily. She will send [employer] message in 2 weeks with BP results. Will likely need to increase to 50mg daily at that point. She will then f/u in the office in a month from now, may need to make additional increase to 100mg at that point. - LOSARTAN 25 MG TABLET - AMLODIPINE 10 MG TABLET 2. Dysthymia - ICD9: 300.4, ICD10: F34.1 Increase fluoxetine from 40mg to 60mg daily. - FLUOXETINE 40 MG CAPSULE Iv[facility] Espinoza APRN.[facility] History of Present illness Narrative* Ivory Espinoza APRN.[facility] - 07/01/2024 1:01 PM EST Chief Complaint Patient presents with: BP Check HPI Isa Tovar is a 54 year old female who presents here today for Above Complaints.. BP-denies CP, SOB, h/a, palpitations Depression-quiet, doesn't want to do much, mother in September. Just wondering if she wouldbe able to increase her Prozac from 40mg. Past medical history, appointments, medications, allergies reviewed. Previous Medical History PAST MEDICAL HISTORY Diagnosis Date Depression Previous Surgical History PAST SURGICAL HISTORY Procedure Laterality Date COLONOSCOPY SCREENING 08/16/2022 repeat in 5 years, poor bowel prep EXCISION GANGLION WRIST DORSAL/VOLAR PRIMARY Right 08/30/2022 Excision ganglion cyst right wrist and open palmar fasciectomy HAND SURGERY HX Right Dr. Dougherty TONSILLECTOMY PRIMARY/SECONDARY <AGE 12 Tonsillectomy VAGINAL HYSTERECTOMY UTERUS 250 GM/< 07/21/2008 Hysterectomy, vaginal Family History FAMILY HISTORY Problem Relation Age of Onset Hypertension Mother Hypertension Father Hypertension Maternal Grandmother Heart Maternal Grandmother Hypertension Sister Heart Brother congenital valve dx, valve replacement/repair Patient Allergies ALLERGIES Allergen Reactions Lisinopril Cough Current Medications Current Outpatient Medications on File Prior to Visit Medication Sig amLODIPine (NORVASC) 10 mg tablet Take 1 tablet by mouth once daily. FLUoxetine (PROZAC) 40 mg capsule Take 1 capsule by mouth once daily. multivitamin tablet Take 1 tablet by mouth once daily. famotidine (PEPCID) 20 mg tablet Take 1 tablet by mouth at bedtime as needed. Yeyrxvp-Sljljkgbx-Eodn tab Take by mouth. No current facility-administered medications on file prior to visit. Social History Social History Tobacco Use Smoking status: Former Current packs/day: 0.00 Types: Cigarettes Start date: 03/04/1985 Quit date: 03/04/1995 Years since quittin.3 Smokeless tobacco: Never Vaping Use Vaping status: Never Used Substance Use Topics Alcohol use: Yes Comment: occasionally Drug use: No Review of Symptoms REVIEW OF SYSTEMS See HPI, otherwise negative EXAM: BP 158/94 (BP Site: Left Arm, BP Position: Sitting, BP Cuff Size: Regular Adult) Pulse 65 Resp 14 Wt 71.8 kg (158 lb 6.4 oz) SpO2 100% BMI 24.81 kg/m General Appearance: Well appearing, alert, in no acute distress, well-hydrated, well nourished.. Lungs: Lungs clear to auscultation. No wheezing, rhonchi, rales.. Heart: RRR without murmur, gallop, or rubs. No ectopy. Psychiatric: pleasant, cooperative. Health Maintenance List Anxiety Screening Never done BP Controlled (<130/80) Never done Mammogram Screening due on 08/23/2023 Influenza Vaccine(1) due on 03/21/2024 Covid-19 Vaccine( season) Never done Shingrix Vaccine(1 of 2) due on 08/01/2024 Annual PCP Team Chronic Disease Visit due on 06/02/2025 Diabetes Screening due on 08/01/2026 Colorectal Cancer Screening due on 08/16/2027 Lipid Screening due on 08/01/2028 DTaP,Tdap,Td Vaccine(2 - Td or Tdap) due on 03/21/2032 Hepatitis B Vaccine Discontinued Cervical Cancer Screening Discontinued Hepatitis C Screening Discontinued HIV Screening Discontinued Data reviewed Previous records, office notes ASSESSMENT/PLAN: 1. Primary hypertension - ICD9: 401.9, ICD10: I10 (primary diagnosis) - Uncontrolled - Recommend home blood pressure monitoring, to bring results to next visit - Encouraged sodium restriction, DASH or Mediterranean diet - Recommend regular aerobic exercise - continue amlodipine 10mg daily. Stop lisinopril d/t cough. Begin losartan 25mg daily. She will send [employer] message in 2 weeks with BP results. Will likely need to increase to 50mg daily at that point. She will then f/u in the office in a month from now, may need to make additional increase to 100mg at that point. - LOSARTAN 25 MG TABLET - AMLODIPINE 10 MG TABLET 2. Dysthymia - ICD9: 300.4, ICD10: F34.1 Increase fluoxetine from 40mg to 60mg daily. - FLUOXETINE 40 MG CAPSULE Ivory Espinoza APRN.SCREEN PRINTER HELPER documented in this encounterUniversity [facility]als [facility]11-13-2024 Instructions* Patient Instructions* Ivory Espinoza APRN.[facility] - 06/02/2024 4:20 PM EST Stop the lisinopril, start the amlodipine (Norvasc). Send me your BP and heart rates in a week through [employer]. documented in this encounterUniversity Hospitals [facility]11-13-2024 NoteHNO ID: [id number] Author: IVORY ESPINOZA APRN.[facility] Service: ? Author Type: Nurse Practitioner Type: Progress Notes Filed: 06/02/2024 18:09 Note Text: Chief Complaint Patient presents with: BP Check: Recently in ER 05/30 for hypertension, taking 40mg of lisinopril, brain fog, lightheaded, deep dry cough x couple weeks HPI Isa Tovar is a 54 year old female who presents here today for Above Complaints.. Cough-the last few weeks has had a dry cough that starts as a tickle. Has tried multiple OTC without improvement. Lisinopril has been increased from 10mg to 40mg over the past month and BP's do not seem to be improving. Was in the ER on 05/30 with SBP over 200. Denies CP, SOB. States did have some brain fog and lightheadedness which was what prompted her to go to the ER. But currently asymptomatic. Past medical history, appointments, medications, allergies reviewed. Previous Medical History PAST MEDICAL HISTORY Diagnosis Date Depression Previous Surgical History PAST SURGICAL HISTORY Procedure Laterality Date COLONOSCOPY SCREENING 08/16/2022 repeat in 5 years, poor bowel prep EXCISION GANGLION WRIST DORSAL/VOLAR PRIMARY Right 08/30/2022 Excision ganglion cyst right wrist and open palmar fasciectomy HAND SURGERY HX Right Dr. Dougherty TONSILLECTOMY PRIMARY/SECONDARY Tonsillectomy VAGINAL HYSTERECTOMY UTERUS 250 GM/< 07/21/2008 Hysterectomy, vaginal Family History FAMILY HISTORY Problem Relation Age of Onset Hypertension Mother Hypertension Father Hypertension Maternal Grandmother Heart Maternal Grandmother Hypertension Sister Heart Brother congenital valve dx, valve replacement/repair Patient Allergies ALLERGIES No Known Allergies Current Medications Current Outpatient Medications on File Prior to Visit Medication Sig lisinopril (ZESTRIL) 20 mg tablet Take 1 tablet by mouth once daily. (Patient taking differently: Take 20 mg by mouth once daily. Taking 40mg) FLUoxetine (PROZAC) 40 mg capsule Take 1 capsule by mouth once daily. multivitamin tablet Take 1 tablet by mouth once daily. famotidine (PEPCID) 20 mg tablet Take 1 tablet by mouth at bedtime as needed. Ylwtsxj-Sbnxydeqj-Tagx tab Take by mouth. No current facility-administered medications on file prior to visit. Social History Social History Tobacco Use Smoking status: Former Current packs/day: 0.00 Types: Cigarettes Start date: 03/04/1985 Quit date: 03/04/1995 Years since quittin.2 Smokeless tobacco: Never Vaping Use Vaping status: Never Used Substance Use Topics Alcohol use: Yes Comment: occasionally Drug use: No Review of Symptoms REVIEW OF SYSTEMS See HPI, otherwise negative EXAM: BP 188/110 (BP Site: Left Arm, BP Position: Sitting, BP Cuff Size: Regular Adult) Pulse 89 Resp 16 Wt 70 kg (154 lb 5.2 oz) SpO2 99% BMI 24.17 kg/m? General Appearance: Well appearing, alert, in no acute distress, well-hydrated, well nourished.. Lungs: Lungs clear to auscultation. No wheezing, rhonchi, rales.. Heart: RRR without murmur, gallop, or rubs. No ectopy. Psychiatric: pleasant, cooperative. Health Maintenance List Anxiety Screening Never done Mammogram Screening due on 08/23/2023 Influenza Vaccine(1) due on 03/21/2024 Covid-19 Vaccine( season) Never done Shingrix Vaccine(1 of 2) due on 08/01/2024 Diabetes Screening due on 08/01/2026 Colorectal Cancer Screening due on 08/16/2027 Lipid Screening due on 08/01/2028 DTaP,Tdap,Td Vaccine(2 - Td or Tdap) due on 03/21/2032 Hepatitis B Vaccine Discontinued Cervical Cancer Screening Discontinued Hepatitis C Screening Discontinued HIV Screening Discontinued Data reviewed Previous records, office notes ASSESSMENT/PLAN: 1. Primary hypertension - ICD9: 401.9, ICD10: I10 She will stop the lisinopril, begin amlodipine 5mg daily. Will send BP and HR results via [employer] in 1 week. Suspect will need to increase amlodipine at that time. F/u in the office in 1 month. - AMLODIPINE 5 MG TABLET Ivory Espinoza APRN.[facility]11-13-[facility] History of Present illness Narrative* Ivory Espinoza APRN.SCREEN PRINTER HELPER - 06/02/2024 3:53 PM EST Chief Complaint Patient presents with: BP Check: Recently in ER 05/30 for hypertension, taking 40mg of lisinopril, brain fog, lightheaded,deep dry cough x couple weeks HPI Isa Tovar is a 54 year old female who presents here today for Above Complaints.. Cough-the last few weeks has had a dry cough that starts as a tickle. Has tried multiple OTC without improvement. Lisinopril has been increased from 10mg to 40mg over the past month and BP's do not seem to be improving. Was in the ER on 05/30 with SBP over 200. Denies CP, SOB. States did have some brain fog and lightheadedness which was what prompted her to go to the ER. But currently asymptomatic. Past medical history, appointments, medications, allergies reviewed. Previous Medical History PAST MEDICAL HISTORY Diagnosis Date Depression Previous Surgical History PAST SURGICAL HISTORY Procedure Laterality Date COLONOSCOPY SCREENING 08/16/2022 repeat in 5 years, poor bowel prep EXCISION GANGLION WRIST DORSAL/VOLAR PRIMARY Right 08/30/2022 Excision ganglion cyst right wrist and open palmar fasciectomy HAND SURGERY HX Right Dr. Dougherty TONSILLECTOMY PRIMARY/SECONDARY <AGE 12 Tonsillectomy VAGINAL HYSTERECTOMY UTERUS 250 GM/< 07/21/2008 Hysterectomy, vaginal Family History FAMILY HISTORY Problem Relation Age of Onset Hypertension Mother Hypertension Father Hypertension Maternal Grandmother Heart Maternal Grandmother Hypertension Sister Heart Brother congenital valve dx, valve replacement/repair Patient Allergies ALLERGIES No Known Allergies Current Medications Current Outpatient Medications on File Prior to Visit Medication Sig lisinopril (ZESTRIL) 20 mg tablet Take 1 tablet by mouth once daily. (Patient taking differently: Take 20 mg by mouth once daily. Taking 40mg) FLUoxetine (PROZAC) 40 mg capsule Take 1 capsule by mouth once daily. multivitamin tablet Take 1 tablet by mouth once daily. famotidine (PEPCID) 20 mg tablet Take 1 tablet by mouth at bedtime as needed. Zpuelra-Jckphzpqu-Vofy tab Take by mouth. No current facility-administered medications on file prior to visit. Social History Social History Tobacco Use Smoking status: Former Current packs/day: 0.00 Types: Cigarettes Start date: 03/04/1985 Quit date: 03/04/1995 Years since quittin.2 Smokeless tobacco: Never Vaping Use Vaping status: Never Used Substance Use Topics Alcohol use: Yes Comment: occasionally Drug use: No Review of Symptoms REVIEW OF SYSTEMS See HPI, otherwise negative EXAM: BP 188/110 (BP Site: Left Arm, BP Position: Sitting, BP Cuff Size: Regular Adult) Pulse 89 Resp16 Wt 70 kg (154 lb 5.2 oz) SpO2 99% BMI 24.17 kg/m General Appearance: Well appearing, alert, in no acute distress, well-hydrated, well nourished.. Lungs: Lungs clear to auscultation. No wheezing, rhonchi, rales.. Heart: RRR without murmur, gallop, or rubs. No ectopy. Psychiatric: pleasant, cooperative. Health Maintenance List Anxiety Screening Never done Mammogram Screening due on 08/23/2023 Influenza Vaccine(1) due on 03/21/2024 Covid-19 Vaccine( season) Never done Shingrix Vaccine(1 of 2) due on 08/01/2024 Diabetes Screening due on 08/01/2026 Colorectal Cancer Screening due on 08/16/2027 Lipid Screening due on 08/01/2028 DTaP,Tdap,Td Vaccine(2 - Td or Tdap) due on 03/21/2032 Hepatitis B Vaccine Discontinued Cervical Cancer Screening Discontinued Hepatitis C Screening Discontinued HIV Screening Discontinued Data reviewed Previous records, office notes ASSESSMENT/PLAN: 1. Primary hypertension - ICD9: 401.9, ICD10: I10 She will stop the lisinopril, begin amlodipine 5mg daily. Will send BP and HR results via [employer] in 1 week. Suspect will need to increase amlodipine at that time. F/u in the office in 1 month. - AMLODIPINE 5 MG TABLET Ivory Espinoza APRN.CNP documented in this encounterUniversity [facility]als [facility]11-13-[facility]24 Nurse Note* Bernadette Daily MA - 06/02/2024 3:36 PM EST 06/02/2024: Home BP Cuff Validated. Home BP: 186/96 Office BP: 188/110 Bernadette Daily MA [facility]11-13-[facility]24 Nurse Note* Bernadette Daily MA - 06/02/2024 3:36 PM EST 06/02/2024: Home BP Cuff Validated. Home BP: 186/96 Office BP: 188/110 Bernadette Daily MA documented in this encounterUniversity Hospitals [facility]10-30-2024 Telephone encounter Note * Telephone Encounter - Ivory Espinoza APRN.CNP - 05/19/2024 6:04 PM EDT Increase lisinopril to 10mg daily and send BP results in 1 week please. Ivory Espinoza APRN.CNP [facility]10-30-2024 Miscellaneous Notes* Telephone Encounter - Ivory Espinoza APRN.CNP - 05/19/2024 6:04 PM EDT Increase lisinopril to 10mg daily and send BP results in 1 week please. Ivory Espinoza APRN.LAQUITA documented in this encounterUniversity Hospitals [facility]hu[facility]10-16-2024 History of Present illness Narrative* Dillon Solorio RT(R) - 05/05/2024 4:40 PM EDT Radiology Service Progress Note PATIENT NAME: Isa Tovar DATE OF SERVICE: May 05, 2024 TIME: 4:52 PM PATIENT IDENTITY VERIFICATION COMPLETED USING TWO (2) IDENTIFIERS: Name and Date of confirmedby patient verbally. FALL SCREENING: Has the patient had 2 falls in the last year or 1 fall with injury or currently using an Ambulatory Assistive Device (Walker, Cane, Wheelchair, Crutches, etc.)? No PATIENT GENDER DATA: Female. status: : No status: NO. PATIENT RELEVANT IMPLANT DATA REVIEWED: Yes PATIENT PRESENTS WITH AN IMPLANTABLE OR ATTACHED CAR SCRUBBER: No RADIOLOGY DEPARTMENT: General X-ray: Exam(s) Completed: Chest X-Ray PERIPHERAL IV DATA: Not applicable SIGNED BY: RT Lisa(Michael) May 05, 2024 4:52 PM documented in this encounterUniversity Hospitals Ahuja [facility]10-16-2024 NoteHNO ID: [id number] Author: DILLON SOLORIO RT(R) Service: ? Author Type: Forest Products Gatherer Type: Progress Notes Filed: 05/05/2024 17:01 Note Text: Radiology Service Progress Note PATIENT NAME: Isa Tovar DATE OF SERVICE: May 05, 2024 TIME: 4:52 PM PATIENT IDENTITY VERIFICATION COMPLETED USING TWO (2) IDENTIFIERS: Name and Date of confirmed by patient verbally. FALL SCREENING: Has the patient had 2 falls in the last year or 1 fall with injury or currently using an Ambulatory Assistive Device (Walker, Cane, Wheelchair, Crutches, etc.)? No PATIENT GENDER DATA: Female. status: : No status: NO. PATIENT RELEVANT IMPLANT DATA REVIEWED: Yes PATIENT PRESENTS WITH AN IMPLANTABLE OR ATTACHED CAR SCRUBBER: No RADIOLOGY DEPARTMENT: General X-ray: Exam(s) Completed: Chest X-Ray PERIPHERAL IV DATA: Not applicable SIGNED BY: RT Lisa(R) May 05, 2024 4:52 [facility]10-16-2024 Instructions* Patient Instructions* Ivory Espinoza APRN.CNP - 05/05/2024 4:00 PM EDT Have your chest xray completed. Schedule your echocardiogram ultrasound of your heart. Start the lisinopril 5mg daily. Monitor your BP and heart rate on a daily basis, send these resultsto me in 2 weeks via [employer]. Ultimately we want your BP to be <130/80. If you are consistently higher than 170/100, please let me know. If you develop a severe headache, vision changes, chest pain, or shortness of breath, youneed to go to the emergency department. documented in this encounterUniversity Hospitals Ahu[facility]10-16-2024 NoteHNO ID: [id number] Author: IVORY ESPINOZA APRN.LAQUITA Service: ? Author Type: Nurse Practitioner Type: Progress Notes Filed: 05/05/2024 18:17 Note Text: Chief Complaint Patient presents with: BP Check HPI Isa Tovar is a 53 year old female who presents here today for Above Complaints. Has appt with [facility] with [facility] next Friday for her left radial head fracture. When typing has pain shooting both down and up her arm. Hand never swelled. Did swell around her elbow. BP-has been elevated. Has been occasionally checking it at home highest 211/101. Does have family hx of HTN-mother, father, sister. Has never been treated for HTN in the past. Denies CP, SOB. Feels like sometimes she can just feel her heart. +headaches. No vision changes. Denies recent illness. Past medical history, appointments, medications, allergies reviewed. Previous Medical History PAST MEDICAL HISTORY Diagnosis Date Depression Previous Surgical History PAST SURGICAL HISTORY Procedure Laterality Date COLONOSCOPY SCREENING 08/16/2022 repeat in 5 years, poor bowel prep EXCISION GANGLION WRIST DORSAL/VOLAR PRIMARY Right 08/30/2022 Excision ganglion cyst right wrist and open palmar fasciectomy HAND SURGERY HX Right Dr. Dougherty TONSILLECTOMY PRIMARY/SECONDARY Tonsillectomy VAGINAL HYSTERECTOMY UTERUS 250 GM/< 07/21/2008 Hysterectomy, vaginal Family History FAMILY HISTORY Problem Relation Age of Onset Hypertension Mother Hypertension Father Hypertension Maternal Grandmother Heart Maternal Grandmother Hypertension Sister Heart Brother congenital valve dx, valve replacement/repair Patient Allergies ALLERGIES No Known Allergies Current Medications Current Outpatient Medications on File Prior to Visit Medication Sig FLUoxetine (PROZAC) 40 mg capsule Take 1 capsule by mouth once daily. multivitamin tablet Take 1 tablet by mouth once daily. famotidine (PEPCID) 20 mg tablet Take 1 tablet by mouth at bedtime as needed. Qcfszkh-Qingwyvrk-Qmeh tab Take by mouth. No current facility-administered medications on file prior to visit. Social History Social History Tobacco Use Smoking status: Former Current packs/day: 0.00 Types: Cigarettes Start date: 03/04/1985 Quit date: 03/04/1995 Years since quittin.1 Smokeless tobacco: Never Vaping Use Vaping status: Never Used Substance Use Topics Alcohol use: Yes Comment: occasionally Drug use: No Review of Symptoms REVIEW OF SYSTEMS See HPI, otherwise negative EXAM: BP 162/90 (BP Site: Left Arm, BP Position: Sitting, BP Cuff Size: Regular Adult) Pulse 72 Resp 16 Wt 71.5 kg (157 lb 10.1 oz) SpO2 100% BMI 24.69 kg/m? General Appearance: Well appearing, alert, in no acute distress, well-hydrated, well nourished.. Neck: Supple, no adenopathy; thyroid symmetric, normal size, no bruits. Lungs: Lungs clear to auscultation. No wheezing, rhonchi, rales.. Heart: RRR without murmur, gallop, or rubs. No ectopy. Extremities: No deformities, edema, skin discoloration, clubbing or cyanosis. Good capillary refill. Weak left hand grasp, limited movement of extremity, brace in place over elbow to lower upper arm and upper lower arm. No swelling or bruising noted. Musculoskeletal: No deformities, edema, skin discoloration, clubbing or cyanosis. Good capillary refill. Weak left hand grasp, limited movement of extremity, brace in place over elbow to lower upper arm and upper lower arm. No swelling or bruising noted.. Peripheral Pulses: Normal. Neurologic: Gait normal. Reflexes normal and symmetric. Sensation grossly intact.. Lymph Nodes: No cervical lymphadenopathy and No supraclavicular lymphadenopathy. Psychiatric: pleasant, cooperative. Health Maintenance List Anxiety Screening Never done Mammogram Screening due on 08/23/2023 Influenza Vaccine(1) due on 03/21/2024 Covid-19 Vaccine( - season) Never done Shingrix Vaccine(1 of 2) due on 08/01/2024 Diabetes Screening due on 08/01/2026 Colorectal Cancer Screening due on 08/16/2027 Lipid Screening due on 08/01/2028 DTaP,Tdap,Td Vaccine(2 - Td or Tdap) due on 03/21/2032 Hepatitis B Vaccine Discontinued Cervical Cancer Screening Discontinued Hepatitis C Screening Discontinued HIV Screening Discontinued Data reviewed Previous records, office notes ASSESSMENT/PLAN: 1. Closed nondisplaced fracture of head of left radius with routine healing, subsequent encounter - ICD9: V54.12, ICD10: S52.125D (primary diagnosis) RICE Ok to continue brace, use sling prn Is seeing [facility] next week 05/12. Will see if they can possibly see her any sooner d/t the fracture. - SLING, ARM 2. Primary hypertension - ICD9: 401.9, ICD10: I10 - New diagnosis Begin lisinopril 5mg daily. Will send [employer] message in 2 weeks with daily BP and HR results. Likely will need to increase dose at that time, will then need in of (more content not included)...[facility]10-16-2024 History of Present illness Narrative* Ivory Espinoza APRN.SCREEN PRINTER HELPER - 05/05/2024 3:34 PM EDT Chief Complaint Patient presents with: BP Check HPI Isa Tovar is a 53 year old female who presents here today for Above Complaints. Has appt with [facility] with [facility] next Friday for her left radial head fracture. When typing has pain shooting both down and up her arm. Hand never swelled. Did swell around her elbow. BP-has been elevated. Has been occasionally checking it at home highest 211/101. Does have family hx of HTN-mother, father, sister. Has never been treated for HTN in the past. Denies CP, SOB. Feels like sometimes she can just feel her heart. +headaches. No vision changes. Denies recent illness. Past medical history, appointments, medications, allergies reviewed. Previous Medical History PAST MEDICAL HISTORY Diagnosis Date Depression Previous Surgical History PAST SURGICAL HISTORY Procedure Laterality Date COLONOSCOPY SCREENING 08/16/2022 repeat in 5 years, poor bowel prep EXCISION GANGLION WRIST DORSAL/VOLAR PRIMARY Right 08/30/2022 Excision ganglion cyst right wrist and open palmar fasciectomy HAND SURGERY HX Right Dr. Dougherty TONSILLECTOMY PRIMARY/SECONDARY <AGE 12 Tonsillectomy VAGINAL HYSTERECTOMY UTERUS 250 GM/< 07/21/2008 Hysterectomy, vaginal Family History FAMILY HISTORY Problem Relation Age of Onset Hypertension Mother Hypertension Father Hypertension Maternal Grandmother Heart Maternal Grandmother Hypertension Sister Heart Brother congenital valve dx, valve replacement/repair Patient Allergies ALLERGIES No Known Allergies Current Medications Current Outpatient Medications on File Prior to Visit Medication Sig FLUoxetine (PROZAC) 40 mg capsule Take 1 capsule by mouth once daily. multivitamin tablet Take 1 tablet by mouth once daily. famotidine (PEPCID) 20 mg tablet Take 1 tablet by mouth at bedtime as needed. Cftiqlw-Flyojrozl-Dxpx tab Take by mouth. No current facility-administered medications on file prior to visit. Social History Social History Tobacco Use Smoking status: Former Current packs/day: 0.00 Types: Cigarettes Start date: 03/04/1985 Quit date: 03/04/1995 Years since quittin.1 Smokeless tobacco: Never Vaping Use Vaping status: Never Used Substance Use Topics Alcohol use: Yes Comment: occasionally Drug use: No Review of Symptoms REVIEW OF SYSTEMS See HPI, otherwise negative EXAM: BP 162/90 (BP Site: Left Arm, BP Position: Sitting, BP Cuff Size: Regular Adult) Pulse 72 Resp 16 Wt 71.5 kg (157 lb 10.1 oz) SpO2 100% BMI 24.69 kg/m General Appearance: Well appearing, alert, in no acute distress, well-hydrated, well nourished.. Neck: Supple, no adenopathy; thyroid symmetric, normal size, no bruits. Lungs: Lungs clear to auscultation. No wheezing, rhonchi, rales.. Heart: RRR without murmur, gallop, or rubs. No ectopy. Extremities: No deformities, edema, skin discoloration, clubbing or cyanosis. Good capillary refill. Weak left hand grasp, limited movement of extremity, brace in place over elbow to lower upper arm and upper lower arm. No swelling or bruising noted. Musculoskeletal: No deformities, edema, skin discoloration, clubbing or cyanosis. Good capillary refill. Weak left hand grasp, limited movement of extremity, brace in place over elbow to lower upper arm and upper lower arm. No swelling or bruising noted.. Peripheral Pulses: Normal. Neurologic: Gait normal. Reflexes normal and symmetric. Sensation grossly intact.. Lymph Nodes: No cervical lymphadenopathy and No supraclavicular lymphadenopathy. Psychiatric: pleasant, cooperative. Health Maintenance List Anxiety Screening Never done Mammogram Screening due on 08/23/2023 Influenza Vaccine(1) due on 03/21/2024 Covid-19 Vaccine( - season) Never done Shingrix Vaccine(1 of 2) due on 08/01/2024 Diabetes Screening due on 08/01/2026 Colorectal Cancer Screening due on 08/16/2027 Lipid Screening due on 08/01/2028 DTaP,Tdap,Td Vaccine(2 - Td or Tdap) due on 03/21/2032 Hepatitis B Vaccine Discontinued Cervical Cancer Screening Discontinued Hepatitis C Screening Discontinued HIV Screening Discontinued Data reviewed Previous records, office notes ASSESSMENT/PLAN: 1. Closed nondisplaced fracture of head of left radius with routine healing, subsequent encounter -ICD9: V54.12, ICD10: S52.125D (primary diagnosis) RICE Ok to continue brace, use sling prn Is seeing [facility] next week 05/12. Will see if they can possibly see her any sooner d/tthe fracture. - SLING, ARM 2. Primary hypertension - ICD9: 401.9, ICD10: I10 - New diagnosis Begin lisinopril 5mg daily. Will send [employer] message in 2 weeks with daily BP and HR results. Likely will need to increase dose at that time, will then need in office appointment. Goal BP<130/80. To notify the office if consistently 170/100 at home. Aware of red flag s/s - Recommend home blood pressure monitoring, to bring results to next visit - Encouraged sodium restriction, DASH or Mediterranean diet - Recommend regular aerobic exercise - ECHO - PERFLUTREN LIPID MICROSPHERES 1.1 MG/ML INJECTION IN NS 10 ML - SODIUM CHLORIDE 0.9 % (FLUSH) INJECTION SYRINGE - ECG COMPLETE - XR CHEST 2V FRONTAL/LAT - LISINOPRIL 5 MG TABLET 3. Headache, unspecified headache type - ICD9: 784.0, ICD10: R51.9 Begin lisinopril 5mg daily. Will send [employer] message in 2 weeks with daily BP and HR results. Likely will need to increase dose at that time, will then need in office appointment. Goal BP<130/80. To notify the office if consistently 170/100 at home. Aware of red flag s/s - Recommend home blood pressure monitoring, to bring results to next visit - Encouraged sodium restriction, DASH or Mediterranean diet - Recommend regular aerobic exercise - ECHO - PERFLUTREN LIPID MICROSPHERES 1.1 MG/ML INJECTION IN NS 10 ML - SODIUM CHLORIDE 0.9 % (FLUSH) INJECTION SYRINGE - ECG COMPLETE - XR CHEST 2V FRONTAL/LAT - LISINOPRIL 5 MG TABLET Ivory Espinoza APRN.SCREEN PRINTER HELPER documented in this encounterUniversity [facility]10-[facility]-2024 Telephone encounter Note * Telephone Encounter - Bernadette Daily MA - 05/04/2024 4:20 PM EDT Pt ok to see [facility]. Faxed consult. Bernadette Daily MA [facility]10-15-2024 Miscellaneous Notes* Telephone Encounter - Bernadette Daily MA - 05/04/2024 4:20 PM EDT Pt ok to see [facility]. Faxed consult. Bernadette Daily MA * Telephone Encounter - Bernadette Daily MA - 05/04/2024 2:34 PM EDT Pt informed. Reports she can get a sling. Please schedule with ORTHO STAT. Bernadette Daily MA * Telephone Encounter - Genoveva Carrera PA-C - 05/03/2024 11:18 AM EDT Let patient know that her xray shows wrist fracture. Will place consult to ortho. Is she in a slingcurrently? Or does she have access to one? She can use one for comfort until she sees ortho. Genoveva Carrera PA-C documented in this encounterUniversity Hospitals [facility]10-15-2024 Telephone encounter Note * Telephone Encounter - Bernadette Daiyl MA - 05/04/2024 2:34 PM EDT Pt informed. Reports she can get a sling. Please schedule with ORTHO STAT. Bernadette Daily MA [facility]10-14-2024 Telephone encounter Note* Telephone Encounter - Genoveva Carrera PA-C - 05/03/2024 11:18 AM EDT Let patient know that her xray shows wrist fracture. Will place consult to ortho. Is she in a slingcurrently? Or does she have access to one? She can use one for comfort until she sees ortho. Genoveva Carrera PA-C [facility]10-08-[facility] History of Present illness Narrative* Ginna Pedro, RT(R) - 04/27/2024 4:40 PM EDT Radiology Service Progress Note PATIENT NAME: Isa Tovar DATE OF SERVICE: April 27, 2024 TIME: 4:51 PM PATIENT IDENTITY VERIFICATION COMPLETED USING TWO (2) IDENTIFIERS: Name and Date of confirmedby patient verbally. FALL SCREENING: Has the patient had 2 falls in the last year or 1 fall with injury or currently using an Ambulatory Assistive Device (Walker, Cane, Wheelchair, Crutches, etc.)? No PATIENT GENDER DATA: Female. status: : No status: NO. PATIENT RELEVANT IMPLANT DATA REVIEWED: Yes PATIENT PRESENTS WITH AN IMPLANTABLE OR ATTACHED CAR SCRUBBER: No RADIOLOGY DEPARTMENT: General X-ray: Exam(s) Completed: Upper Extremity X- Ray(s): Elbow, left and Wrist, left PERIPHERAL IV DATA: Not applicable SIGNED BY: RT Tanja(Michael) April 27, 2024 4:51 PM documented in this encounterUniversity Hospitals Ahu[facility]10-08-2024 NoteHNO ID: [id number] Author: GINNA PEDRO RT(R) Service: Radiology Author Type: Technologist Type: Progress Notes Filed: 04/27/2024 17:06 Note Text: Radiology Service Progress Note PATIENT NAME: Isa Tovar DATE OF SERVICE: April 27, 2024 TIME: 4:51 PM PATIENT IDENTITY VERIFICATION COMPLETED USING TWO (2) IDENTIFIERS: Name and Date of confirmed by patient verbally. FALL SCREENING: Has the patient had 2 falls in the last year or 1 fall with injury or currently using an Ambulatory Assistive Device (Walker, Cane, Wheelchair, Crutches, etc.)? No PATIENT GENDER DATA: Female. status: : No status: NO. PATIENT RELEVANT IMPLANT DATA REVIEWED: Yes PATIENT PRESENTS WITH AN IMPLANTABLE OR ATTACHED CAR SCRUBBER: No RADIOLOGY DEPARTMENT: General X-ray: Exam(s) Completed: Upper Extremity X-Ray(s): Elbow, left and Wrist, left PERIPHERAL IV DATA: Not applicable SIGNED BY: SILVINO Agrawal) April 27, 2024 4:51 [facility]10-08-2024 NoteHNO ID: [id number] Author: RONNY GOODMAN APRN.SCREEN PRINTER HELPER Service: ? Author Type: Nurse Practitioner Type: Progress Notes Filed: 04/27/2024 16:29 Note Text: Chief Complaint Patient presents with: Arm Pain HPI Isa Tovar is a 53 year old female who presents here today for Above Complaints.. Patient presents for left arm pain after falling on vacation about a week ago. Reports continued pain from wrist extending through elbow to upper arm. Patient has not been seen for injury previously. Denies N/T. Patient reports increased pain since returning to work as she is left handed. Pain also reported with push pull. Past medical history, appointments, medications, allergies reviewed. Previous Medical History PAST MEDICAL HISTORY Diagnosis Date Depression Previous Surgical History PAST SURGICAL HISTORY Procedure Laterality Date COLONOSCOPY SCREENING 08/16/2022 repeat in 5 years, poor bowel prep EXCISION GANGLION WRIST DORSAL/VOLAR PRIMARY Right 08/30/2022 Excision ganglion cyst right wrist and open palmar fasciectomy HAND SURGERY HX Right Dr. Dougherty TONSILLECTOMY PRIMARY/SECONDARY Tonsillectomy VAGINAL HYSTERECTOMY UTERUS 250 GM/< 07/21/2008 Hysterectomy, vaginal Family History FAMILY HISTORY Problem Relation Age of Onset Hypertension Mother Hypertension Father Hypertension Maternal Grandmother Heart Maternal Grandmother Hypertension Sister Heart Brother congenital valve dx, valve replacement/repair Patient Allergies ALLERGIES No Known Allergies Current Medications Current Outpatient Medications on File Prior to Visit Medication Sig FLUoxetine (PROZAC) 40 mg capsule Take 1 capsule by mouth once daily. multivitamin tablet Take 1 tablet by mouth once daily. famotidine (PEPCID) 20 mg tablet Take 1 tablet by mouth at bedtime as needed. Vdxaemq-Aohcbrhxs-Rgko tab Take by mouth. No current facility-administered medications on file prior to visit. Social History Social History Tobacco Use Smoking status: Former Current packs/day: 0.00 Types: Cigarettes Start date: 03/04/1985 Quit date: 03/04/1995 Years since quittin.1 Smokeless tobacco: Never Vaping Use Vaping status: Never Used Substance Use Topics Alcohol use: Yes Comment: occasionally Drug use: No Review of Symptoms REVIEW OF SYSTEMS SEE HPI EXAM: BP 194/100 Pulse 68 Resp 14 Wt 70.3 kg (155 lb) BMI 24.28 kg/m? General Appearance: Well appearing, alert, in no acute distress, well-hydrated, well nourished.. Extremities: Positive findings: joint location: on left elbow painful movement, loss of ROM, injury, and pain with rotation, full ROM with flexion and extension, on left wrist painful movement, stiffness, and injury. Health Maintenance List Anxiety Screening Never done Mammogram Screening due on 08/23/2023 Influenza Vaccine(1) due on 03/21/2024 Covid-19 Vaccine( season) Never done Shingrix Vaccine(1 of 2) due on 08/01/2024 Diabetes Screening due on 08/01/2026 Colorectal Cancer Screening due on 08/16/2027 Lipid Screening due on 08/01/2028 DTaP,Tdap,Td Vaccine(2 - Td or Tdap) due on 03/21/2032 Hepatitis B Vaccine Discontinued Cervical Cancer Screening Discontinued Hepatitis C Screening Discontinued HIV Screening Discontinued ASSESSMENT/PLAN: 1. Injury of left upper arm, initial encounter - ICD9: 959.2, ICD10: S49.92XA (primary diagnosis) - XR WRIST GENERAL 3V PA/LAT/OBL LEFT - XR ELBOW GENERAL 2V AP/LAT LEFT 2. Elevated BP without diagnosis of hypertension - ICD9: 796.2, ICD10: R03.0 Possibly secondary to pain from injury. - Recommended regular aerobic exercise. - Recommend home blood pressure monitoring, to bring results in on next visit - Goal of BP <130/80 Ronny Goodman APRN.[facility] History of Present illness Narrative* Ronny Goodman APRN.SCREEN PRINTER HELPER - 04/27/2024 4:21 PM EDT Chief Complaint Patient presents with: Arm Pain HPI Isa Tovar is a 53 year old female who presents here today for Above Complaints.. Patient presents for left arm pain after falling on vacation about a week ago. Reports continued pain from wrist extending through elbow to upper arm. Patient has not been seen for injury previously.Denies N/T. Patient reports increased pain since returning to work as she is left handed. Pain alsoreported with push pull. Past medical history, appointments, medications, allergies reviewed. Previous Medical History PAST MEDICAL HISTORY Diagnosis Date Depression Previous Surgical History PAST SURGICAL HISTORY Procedure Laterality Date COLONOSCOPY SCREENING 08/16/2022 repeat in 5 years, poor bowel prep EXCISION GANGLION WRIST DORSAL/VOLAR PRIMARY Right 08/30/2022 Excision ganglion cyst right wrist and open palmar fasciectomy HAND SURGERY HX Right Dr. Dougherty TONSILLECTOMY PRIMARY/SECONDARY <AGE 12 Tonsillectomy VAGINAL HYSTERECTOMY UTERUS 250 GM/< 07/21/2008 Hysterectomy, vaginal Family History FAMILY HISTORY Problem Relation Age of Onset Hypertension Mother Hypertension Father Hypertension Maternal Grandmother Heart Maternal Grandmother Hypertension Sister Heart Brother congenital valve dx, valve replacement/repair Patient Allergies ALLERGIES No Known Allergies Current Medications Current Outpatient Medications on File Prior to Visit Medication Sig FLUoxetine (PROZAC) 40 mg capsule Take 1 capsule by mouth once daily. multivitamin tablet Take 1 tablet by mouth once daily. famotidine (PEPCID) 20 mg tablet Take 1 tablet by mouth at bedtime as needed. Vagdmxn-Fetggzobz-Rlft tab Take by mouth. No current facility-administered medications on file prior to visit. Social History Social History Tobacco Use Smoking status: Former Current packs/day: 0.00 Types: Cigarettes Start date: 03/04/1985 Quit date: 03/04/1995 Years since quittin.1 Smokeless tobacco: Never Vaping Use Vaping status: Never Used Substance Use Topics Alcohol use: Yes Comment: occasionally Drug use: No Review of Symptoms REVIEW OF SYSTEMS SEE HPI EXAM: BP 194/100 Pulse 68 Resp 14 Wt 70.3 kg (155 lb) BMI 24.28 kg/m General Appearance: Well appearing, alert, in no acute distress, well-hydrated, well nourished.. Extremities: Positive findings: joint location: on left elbow painful movement, loss of ROM, injury, and pain with rotation, full ROM with flexion and extension, on left wrist painful movement, stiffness, and injury. Health Maintenance List Anxiety Screening Never done Mammogram Screening due on 08/23/2023 Influenza Vaccine(1) due on 03/21/2024 Covid-19 Vaccine( season) Never done Shingrix Vaccine(1 of 2) due on 08/01/2024 Diabetes Screening due on 08/01/2026 Colorectal Cancer Screening due on 08/16/2027 Lipid Screening due on 08/01/2028 DTaP,Tdap,Td Vaccine(2 - Td or Tdap) due on 03/21/2032 Hepatitis B Vaccine Discontinued Cervical Cancer Screening Discontinued Hepatitis C Screening Discontinued HIV Screening Discontinued ASSESSMENT/PLAN: 1. Injury of left upper arm, initial encounter - ICD9: 959.2, ICD10: S49.92XA (primary diagnosis) - XR WRIST GENERAL 3V PA/LAT/OBL LEFT - XR ELBOW GENERAL 2V AP/LAT LEFT 2. Elevated BP without diagnosis of hypertension - ICD9: 796.2, ICD10: R03.0 Possibly secondary to pain from injury. - Recommended regular aerobic exercise. - Recommend home blood pressure monitoring, to bring results in on next visit - Goal of BP <130/80 Ronny Goodman APRN.LAQUITA documented in this encounterUniversity [facility]als [facility]05-14-[facility]24 Telephone encounter Note * Telephone Encounter - Lolly Isaac MA - 12/02/2023 2:40 PM EDT Patient active MyChart. Patient notified via Vidable message. Lolly Isaac MA [facility]05-14-2024 Miscellaneous Notes* Telephone Encounter - Lolly Isaac MA - 12/02/2023 2:40 PM EDT Patient active MyChart. Patient notified via Vidable message. Lolly Isaac MA * Telephone Encounter - Ivory Espinoza APRN.CNP - 12/02/2023 2:19 PM EDT Please let her know that her mammogram shows no concern for malignancy/cancer. Recommend continuingto follow up yearly with screening mammogram. Ivory Espinoza APRN.CNP documented in this encounterUniversity Hospitals [facility]05-14-2024 Telephone encounter Note * Telephone Encounter - Ivory Espinoza APRN.CNP - 12/02/2023 2:19 PM EDT Please let her know that her mammogram shows no concern for malignancy/cancer. Recommend continuingto follow up yearly with screening mammogram. Ivory Espinoza APRN.CNP [facility]04-30-2024 Telephone encounter Note* Telephone Encounter - Iris Chang MA - 11/18/2023 10:29 AM EDT Order sent to [facility] Iris Chang MA [facility]04-30-2024 Miscellaneous Notes* Telephone Encounter - Iris Chang MA - 11/18/2023 10:29 AM EDT Order sent to [facility] Iris Chang MA * Telephone Encounter - Ivory Espinoza APRN.CNP - 11/18/2023 9:44 AM EDT Order signed, please fax per request. Ivory Espinoza APRN.CNP * Telephone Encounter - Urvashi Altamirano LPN - 11/18/2023 9:31 AM EDT Patient calling she has set up mamm appt at [facility] for November 26. Patient needs order faxed to [facility] at [phone]. Need order for Mamm with suzanne, pending order. Please advise documented in this encounterUniversity Hospitals [facility]04-30-2024 Telephone encounter Note * Telephone Encounter - Ivory Espinoza APRN.CNP - 11/18/2023 9:44 AM EDT Order signed, please fax per request. Ivory Espinoza APRN.SCREEN PRINTER HELPER [facility]04-30-2024 Telephone encounter Note* Telephone Encounter - Urvashi Altamirano LPN - 11/18/2023 9:31 AM EDT Patient calling she has set up mamm appt at [facility] for November 26. Patient needs order faxed to [facility] at [phone]. Need order for Mamm with suzanne, pending order. Please advise [facility]02-01-2024 Miscellaneous Notes* Telephone Encounter - Estefany Olsen LPN - 08/21/2023 9:42 AM EST Patient has been identified by name and date of : Yes, Provider Dr. Monet Date 08/21/23 Time 9:42 Patient phones for refill(s): Requested Prescriptions Pending Prescriptions Disp Refills FLUoxetine (PROZAC) 40 mg capsule 90 capsule 3 Sig: Take 1 capsule by mouth once daily. Date of last office visit in primary care: 08/01/2023 Date of next office visit in primary care: Visit date not found Please advise. Thank you. Estefany Olsen LPN. documented in this encounterUniversity Hospitals Ahu[facility]01-12-2024 History of Present illness Narrative* Dillon Solorio RT(R) - 08/01/2023 9:40 AM EST Radiology Service Progress Note PATIENT NAME: Isa Tovar DATE OF SERVICE: August 01, 2023 TIME: 9:51 AM PATIENT IDENTITY VERIFICATION COMPLETED USING TWO (2) IDENTIFIERS: Name and Date of confirmedby patient verbally. FALL SCREENING: Has the patient had 2 falls in the last year or 1 fall with injury or currently using an Ambulatory Assistive Device (Walker, Cane, Wheelchair, Crutches, etc.)? No PATIENT GENDER DATA: Female. status: : No status: NO. PATIENT RELEVANT IMPLANT DATA REVIEWED: Yes RADIOLOGY DEPARTMENT: General X-ray: Exam(s) Completed: Lower Extremity X- Ray(s): Knee, AP / Lat / Tunne / Merchant Bilateral PERIPHERAL IV DATA: Not applicable SIGNED BY: Dillon Solorio RT(R) August 01, 2023 9:51 AM documented in this encounterUniversity Hospitals Ahu[facility]04-16-2023 History of Present illness Narrative* Tamanna Olea APRN.SCREEN PRINTER HELPER - 11/03/2022 11:12 AM EDT Images from the original note were not included. Subjective Patient came in with complaints of itching rash on bilateral legs and arms. Patient says she got into a poison doyle or sumac about a week ago. Patient says she is tried kshs-duk-zvwtshg stuff with no relief. Patient denies any other symptoms at this time. The history is provided by the patient. No director speech language was used. Rash Review of Systems Constitutional: Negative. Skin: Positive for itching and rash. Objective Physical Exam Constitutional: Appearance: Normal appearance. Pulmonary: Effort: Pulmonary effort is normal. Skin: Comments: Patient does have contact dermatitis located in the areas marked above. No signs of infection at this time. Neurological: Mental Status: She is alert. PAST MEDICAL HISTORY Diagnosis Date Depression PAST SURGICAL HISTORY Procedure Laterality Date COLONOSCOPY SCREENING 08/16/2022 repeat in 5 years, poor bowel prep EXCISION GANGLION WRIST DORSAL/VOLAR PRIMARY Right 08/30/2022 Excision ganglion cyst right wrist and open palmar fasciectomy TONSILLECTOMY PRIMARY/SECONDARY <AGE 12 Tonsillectomy VAGINAL HYSTERECTOMY UTERUS 250 GM/< 07/21/2008 Hysterectomy, vaginal ALLERGIES Patient has no known allergies. MEDICATIONS FLUoxetine (PROZAC) 40 mg capsule Take 1 capsule by mouth once daily. famotidine (PEPCID) 20 mg tablet Take 1 tablet by mouth at bedtime as needed. Psjyayq-Ygyczjzlz-Lvmi tab Take by mouth. predniSONE (DELTASONE) 10 mg tablet Take 4 tabs daily for 3 days, then 2 tabs daily for 3 days, then 1 tab daily for 3 days with food. FAMILY HISTORY Problem Relation Age of Onset Hypertension Mother Hypertension Father Hypertension Maternal Grandmother Heart Maternal Grandmother Hypertension Sister Heart Brother congenital valve dx, valve replacement/repair Social History Tobacco Use Smoking status: Former Years: 10.00 Types: Cigarettes Quit date: 03/04/1995 Years since quittin.6 Smokeless tobacco: Never Vaping Use Vaping Use: Never used Substance Use Topics Alcohol use: Yes Comment: occasionally - 4 drinks per week Drug use: No ASSESSMENT/PLAN: 1. Contact dermatitis due to plants, except food, unspecified contact dermatitis type - ICD9: 692.6, ICD10: L25.5 - PREDNISONE 10 MG TABLET Patient was educated about proper use of medication and supportive therapies. Patient will follow-up if signs and symptoms seem to be getting worse not better. Patient was okay with this care plan. Tamanna Olea APRN.CNP documented in this encounterUniversity Hospitals [facility]04-04-2023 History of Present illness Narrative* Zulema Clayton RT(R) - 10/22/2022 8:30 AM EDT Radiology Service Progress Note PATIENT NAME: Isa Tovar DATE OF SERVICE: October 22, 2022 TIME: 8:17 AM PATIENT IDENTITY VERIFICATION COMPLETED USING TWO (2) IDENTIFIERS: Name and Date of confirmedby patient verbally. FALL SCREENING: Has the patient had 2 falls in the last year or 1 fall with injury or currently using an Ambulatory Assistive Device (Walker, Cane, Wheelchair, Crutches, etc.)? No PATIENT GENDER DATA: Female. status: : No status: NO. PATIENT RELEVANT IMPLANT DATA REVIEWED: Not Applicable RADIOLOGY DEPARTMENT: General X-ray: Exam(s) Completed: Chest X-Ray PERIPHERAL IV DATA: Not applicable SIGNED BY: RT Orlando(R) October 22, 2022 8:17 AM documented in this encounterUniversity Hospitals A[facility]04-04-2023 History of Present illness Narrative* SYED Monsivais - 10/22/2022 8:10 AM EDT Images from the original note were not included. This note was created using [employer]. Subjective Isa Tovar is a 52 year old female. HPI 52-year-old female presents for cough, nasal congestion, headaches for 1 week. Patient states she has had a cough and chest congestion for the past week. She is coughing up phlegm. She states that she has left-sided rib pain with coughing. She states it is tender to touch on the side as well. Denies any chest pain or shortness of breath. She does have nasal congestion, sinus pressure and headaches as well for the past week. No fevers. States her mom recently had norovirus. Patient has no vomiting or diarrhea. No fevers. No history of DVT/PE. No leg swelling. She did have surgery on wrist,but this was 8 weeks ago. Not tachycardic or hypoxic. No chest pain or shortness of breath. No other complaints. PAST MEDICAL HISTORY Diagnosis Date Depression PAST SURGICAL HISTORY Procedure Laterality Date COLONOSCOPY SCREENING 08/16/2022 repeat in 5 years, poor bowel prep EXCISION GANGLION WRIST DORSAL/VOLAR PRIMARY Right 08/30/2022 Excision ganglion cyst right wrist and open palmar fasciectomy TONSILLECTOMY PRIMARY/SECONDARY <AGE 12 Tonsillectomy VAGINAL HYSTERECTOMY UTERUS 250 GM/< 07/21/2008 Hysterectomy, vaginal ALLERGIES Patient has no known allergies. MEDICATIONS FLUoxetine (PROZAC) 40 mg capsule Take 1 capsule by mouth once daily. famotidine (PEPCID) 20 mg tablet Take 1 tablet by mouth at bedtime as needed. Fjjnnak-Xlxxxnzbs-Meco tab Take by mouth. FAMILY HISTORY Problem Relation Age of Onset Hypertension Mother Hypertension Father Hypertension Maternal Grandmother Heart Maternal Grandmother Hypertension Sister Heart Brother congenital valve dx, valve replacement/repair Social History Tobacco Use Smoking status: Former Years: 10.00 Types: Cigarettes Quit date: 03/04/1995 Years since quittin.6 Smokeless tobacco: Never Vaping Use Vaping Use: Never used Substance Use Topics Alcohol use: Yes Comment: occasionally - 4 drinks per week Drug use: No Review of Systems Constitutional: Negative for chills and fever. HENT: Positive for congestion and sinus pressure. Negative for ear pain and sore throat. Respiratory: Positive for cough. Negative for shortness of breath. Cardiovascular: Negative for chest pain. Gastrointestinal: Negative for diarrhea and vomiting. Neurological: Positive for headaches. Objective BP 134/88 Pulse 99 Temp 37.7 C (99.8 F) (Tympanic) Resp 18 Wt 66.8 kg (147 lb 3.2 oz) SpO2 98% BMI 23.05 kg/m Physical Exam Vitals and nursing note reviewed. Constitutional: General: She is not in acute distress. Appearance: Normal appearance. She is not toxic-appearing. HENT: Right Ear: Tympanic membrane and ear canal normal. Left Ear: Tympanic membrane and ear canal normal. Nose: Congestion present. Right Sinus: Maxillary sinus tenderness present. Left Sinus: Maxillary sinus tenderness present. Mouth/Throat: Mouth: Mucous membranes are moist. Pharynx: No oropharyngeal exudate or posterior oropharyngeal erythema. Eyes: Conjunctiva/sclera: Conjunctivae normal. Cardiovascular: Rate and Rhythm: Normal rate and regular rhythm. Pulmonary: Effort: Pulmonary effort is normal. Breath sounds: Normal breath sounds. Chest: Chest wall: Tenderness present. Comments: Tenderness over left lower lateral ribs. No rash. No bruising or deformity. Neurological: Mental Status: She is alert. Assessment and Plan ASSESSMENT/PLAN: 1. Acute cough - ICD9: 786.2, ICD10: R05.1 (primary diagnosis) - XR CHEST 2V FRONTAL/LAT -XR reveals hazy opacities in the mid to lower left lung suspicious for pneumonia 2. Rib pain - ICD9: 786.50, ICD10: R07.81 - Atypical chest pain, symptoms are not consistent with cardiac ischemia due to nonexertional nature of symptom, pleuritic nature of pain, localization of the pain, and pneumonia seen on CXR possibleetiology include musculoskeletal, Pneumonia, Pulmonary embolis, and Pleurisy - Chest X-ray today. Pneumonia Lt. lower lobe. - Wells score is 0. 3. Pneumonia of left lower lobe due to infectious organism - ICD9: 486, ICD10: J18.9 - RX for doxycycline, no co-morbidities. -Follow-up with PCP in a few weeks for reevaluation and to ensure resolution. Diagnosis and treatment plan were discussed and questions were answered to the patient's satisfaction. Pt acknowledged understanding of concepts and follow up plan. Specific signs and symptoms that would indicate the need for higher level of care were discussed in detail warranting prompt ER evaluation. SYED Monsivais documented in this encounterUniversity Hospitals Ahu[facility]03-23-2023 History of Present illness Narrative* Tree Dougherty MD - 10/10/2022 9:23 AM EDT Tree Dougherty MD Department of Orthopaedics Orthopaedics [address] [facility] [address] Dept: [phone] Dept October 10, 2022 CHIEF COMPLAINT: Established Patient and Post Op of the Right Wrist. HPI Patient here today for 5 weeks 6 days post op excision ganglion cyst right wrist and open fasciectomy. Patient denies any pain. ASSESSMENT: M67.431 Ganglion of right wrist (primary encounter diagnosis) M72.0 Dupuytren's contracture of right hand SUMMARY/PLAN: She is doing very well from both of these. She is not really having any troubles. Both surgical sites look excellent and full range of motion of her hand. Follow-up as needed Exam: Healed incisions. As above. Supporting Information Below: Medications: Current Outpatient Medications Medication Sig FLUoxetine (PROZAC) 40 mg capsule Take 1 capsule by mouth once daily. famotidine (PEPCID) 20 mg tablet Take 1 tablet by mouth at bedtime as needed. Nyjsmny-Hyufkruxf-Bntt tab Take by mouth. No current facility-administered medications for this visit. Allergies: Patient has no known allergies. Tree Dougherty MD documented in this encounterUniversity Hospitals [facility]02-20-2023 History of Present illness Narrative* Kathryn Alan PA-C - 09/09/2022 9:17 AM EST Kathryn Alan PA-C Department of Orthopaedics Orthopaedics [address] [facility] [address] Dept: [phone] Dept September 09, 2022 CHIEF COMPLAINT: Established Patient and Post Op of the Right Wrist. ASSESSMENT: M67.431 Ganglion of right wrist (primary encounter diagnosis) M72.0 Dupuytren's contracture SUMMARY/PLAN: Patient presents 1 week and 3 days status post excision of right wrist ganglion cyst and palmar fasciectomy for Dupuytren's. Patient denies any pain today she does have some soreness. We will remove her sutures, we did discuss scar massage as well as proper hand washing. She has some tightness with full extension of the right ring digit. We did review some stretching exercises I did offer to have her see occupational therapy, she declines at this time but will contact us if she reconsiders. We will see her back in 1 month as planned. Exam: Right palm incision site is well approximated without erythema or drainage, there is some edema andfirmness around the incision site. Patient is able to lay her palm flat on a table. Right wrist incision site again is well approximated with mild but appropriate edema, no ecchymosis. Patient is freely using the hand in the office. Imaging: Deferred today. Ms. Isa Tovar was advised as to contrast therapies and/or to take analgesics/anti-inflammatories as needed and all contraindications were reviewed. Supporting Information Below: Medications: Current Outpatient Medications Medication Sig FLUoxetine (PROZAC) 40 mg capsule Take 1 capsule by mouth once daily. famotidine (PEPCID) 20 mg tablet Take 1 tablet by mouth at bedtime as needed. Ditnokd-Pyewiapmr-Fhga tab Take by mouth. No current facility-administered medications for this visit. Allergies: Patient has no known allergies. This note was partially generated using [employer] voice recognition system, and there may be some incorrect words, spellings, and punctuation that were not noted in checking the note before saving. Kathryn Alan PA-C * Padmini Cabral Ma - 09/09/2022 8:44 AM EST AMB ROOMING INTAKE FLOWSHEET DATA Patient here today for 1 week 3 days post op excision ganglion cyst right wrist and open fasciectomy. Patient states her palm is a little sore, but otherwise no pain. documented in this encounterUniversity Hospitals Ahuja [facility] Center02-08-2023 Miscellaneous Notes* Telephone Encounter - Bernadette Daily - 08/28/2022 11:29 AM EST Pt informed, verbalized understanding Bernadette Daily * Telephone Encounter - Ivory Espinoza APRN.CNP - 08/28/2022 9:52 AM EST Please let Isa know that there is no concern for malignancy/cancer. Recommend continuing to follow up yearly with screening mammogram. Ivory Espinoza APRN.CNP documented in this encounterUniversity Hospitals Ahuja [facility] Center01-31-2023 Instructions* Patient Instructions* Pearl Andrews PA-C - 08/20/2022 12:50 PM EST PATIENT PREOPERATIVE INSTRUCTIONS [facility]: [phone] -- [address] [facility] [address]. Please read below carefully for your personalized instructions. Dietary Restrictions: - No solid food after midnight. - You may have 12 ounces of clear liquids (water, clear juices such as apple juice or gatorade, carbonated beverages, clear tea, black coffee, jello) until 2 hours before scheduled arrival at facility. Medications: Unless instructed differently below, stay on all of your medications until your surgery. Approved medications to take the morning of surgery with a sip of water: fluoxetine (Prozac), famotidine (Pepcid). If you start any new medications after today's visit, please contact the surgeon's office. Blood Thinning Medications: - Stop NSAIDS (Ibuprofen, Advil, Aleve, Motrin, Celebrex, Mobic, etc.) 7 days before surgery, as directed by your surgeon. - Stop Aspirin 7 days before surgery, as directed by your surgeon. - Stop Vitamin E, ALL multi-vitamins, herbals and dietary supplements 7 days before surgery. - You may take Tylenol (Acetaminophen) or any of your pain medications that do not contain aspirin or NSAIDS as needed. Important Reminders: - Candy, mints, and tobacco products are NOT permitted the morning of surgery. - Hearing aids, dentures and glasses may be worn the morning of surgery. - NO jewelry, body piercings, makeup, hairpins or contacts are to be worn the day of surgery. If you develop symptoms such as a fever, cold, or flu, or have other changes to your health within TWO DAYS of scheduled surgery or the morning of surgery, please contact the surgery center above. Personal Belongings: -Please have photo ID and insurance cards. -If you do not have a copy of advance directives on file with us, please bring a copy with you on the day of surgery. - Leave ALL valuables and money at home or with family members. For Outpatient Procedures: - YOU MUST HAVE A RESPONSIBLE LOGISTICS ACCOUNT MANAGER TAKE YOU HOME. A DIVING BOARD ASSEMBLER OR REVENUE CYCLE SPECIALIST CANNOT BE MADE A RESPONSIBLE LOGISTICS ACCOUNT MANAGER. - We recommend that a responsible person stays with you overnight to take care of you. - You cannot stay in a hotel alone after outpatient surgery. You will not be permitted to have yoursurgery, if you do not have someone to take care of you. Arrival Time for Surgery: - The Surgery Center or hospital where you are having surgery will call the afternoon before surgery (or Friday for Friday surgery) with a scheduled arrival time. - If you have not heard by 4 pm, please contact the surgery center above. Please be aware that emergency situations arise, which may delay or change your surgical time. If this happens, we will notify you as soon as possible and regret any inconvenience. If you already have an Advance Directive, please fax a copy to [phone] or email to for it to be added to your chart. If you do not have an Advance Directive, you can find the appropriate form and more information at [email or web address]. We recommend that youcomplete the Advance Directive form found on the website and bring it with you the day of your surgery. It can be witnessed and scanned into your chart that day. documented in this encounterUniversity Hospitals [facility]01-30-[facility]23 History and physical note * Pearl Andrews PA-C - 08/19/2022 11:11 AM EST PREANESTHESIA CONSULT CLINIC TELEHEALTH VISIT Patient has been identified by name and date of : Yes This is a virtual visit using [employer] video visit. It require patient-provider interaction for the medical decision making as documented below. Reason for contact: PACC visit Accompanied by: Self Scheduled Surgery: EXCISION GANGLION WRIST, FASCIECTOMY, PALM ONLY, W/ OR W/O Z- PLASTY, OTHER LOCALTISSUE REARRANGEMENT, OR SKIN GRAFTING Subjective CHIEF COMPLAINT: Patient presents with: Anesthesia Consult HPI: Isa Tovar is a 52 year old LHD female presenting for pre- anesthesia consultation. Pthas history of cyst on right wrist and Dupuytren's contracture of right ring finger. 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 Pt reports that cyst has beenpresent for 4 years but was not bothersome until recently. Pt reports she has aching pain now with working/typing. Above procedure recommended to manage symptoms. Procedure scheduled on 08/30/2022 at [facility]. ACTIVE PROBLEM LIST Dysthymia Well Adult Exam Acid Reflux PAST MEDICAL HISTORY Diagnosis Date Depression PAST SURGICAL HISTORY Procedure Laterality Date COLONOSCOPY SCREENING 07/2022 TONSILLECTOMY PRIMARY/SECONDARY <AGE 12 Tonsillectomy VAGINAL HYSTERECTOMY UTERUS 250 GM/< 07/21/2008 Hysterectomy, vaginal FAMILY HISTORY Problem Relation Age of Onset Hypertension Mother Hypertension Father Hypertension Maternal Grandmother Heart Maternal Grandmother Hypertension Sister Heart Brother congenital valve dx, valve replacement/repair Social History Tobacco Use Smoking status: Former Years: 10.00 Types: Cigarettes Quit date: 03/04/1995 Years since quittin.4 Smokeless tobacco: Never Vaping Use Vaping Use: Never used Substance Use Topics Alcohol use: Yes Comment: occasionally - 4 drinks per week Drug use: No ALLERGIES No Known Allergies MEDICATIONS: Current Outpatient Medications Medication Sig FLUoxetine (PROZAC) 40 mg capsule Take 1 capsule by mouth once daily. famotidine (PEPCID) 20 mg tablet Take 1 tablet by mouth at bedtime as needed. Rdquoqv-Cgnclmnsq-Dfuw tab Take by mouth. No current facility-administered medications for this visit. COVID VACCINATION STATUS: Not vaccinated, prior infection REVIEW OF SYSTEMS: General: No weight loss, malaise or fevers. Neuro: No history of TIA's, stroke, ENVIRONMENTAL TECHNOLOGY PROFESSOR tumor, impaired sensorium, hemiplegia, paraplegia or quadraplegia. No neurological symptoms or problems. Respiratory: +Former smoker - quit in 1994. Negative for Asthma, Bronchitis, COPD, Current cough, URI < 2 weeks, Wheezing Cardiovascular: No history of HTN requiring medication, no history of angina, CHF, SD, cardiac surgery or stents. Denies rest pain, gangrene or revascularization/amputation for PVD. No history of cardiovascular symptoms or problems. GI: +GERD Negative for Hepatitis, Liver disease, ETOH > 2 drinks / day : No history of dysuria, frequency or incontinence,, stones or chronic kidney disease Endocrine: No history of diabetes. Has not taken steroids within the past 30 days. No history of endocrinological symptoms or problems. Hematology: No history of bleeding or clotting disorder. Pt is not taking anti- coagulation or platelet medications. No history of hematological symptoms or problems. Oncology: No history of CA metastasis, chemo within 30 days, or radiotherapy within 90 days. Has not lost 10% of body wt in 6 months. No history of oncological symptoms or problems. Psych: +Depression Musculoskeletal: See HPI Skin: Negative for lesions, rash and itching. Objective PHYSICAL EXAM: Ht 5' 7 (1.70m) Wt 150 lb (68.0kg) BMI 23.49 kg/(m^2). VIDEO EXAM: (if completed, performed via video enabled technology) GENERAL: alert and appropriate, in no distress, well-hydrated, well nourished, and happy, smiling, interactive SKIN: no rash noted HEAD: normocephalic, no abnormality or lesion noted EYES: no injection, visual acuity is grossly normal, and wearing glasses. NOSE: external nose normal without rhinorrhea OROPHARYNX: moist mucus membranes NECK: full ROM, no cervical LNs noted RESPIRATORY: breathing non-labored CHEST: equal chest rise with normal respiratory effort HEART: Patient palpated radial pulses, pulse regular when counted aloud by patient. NEUROLOGIC: no obvious deficit Diagnostic tests reviewed for today's visit: Lab Value Units Date High Low HB 13.1 g/dL 06/28/2022 15.5 11.5 HCT 39.7 % 06/28/2022 46.0 36.0 WBC 4.12 k/uL 06/28/2022 11.00 3.70 PLT 291 k/uL 06/28/2022 400 150 NA 132 mmol/L 06/28/2022 144 136 K 3.9 mmol/L 06/28/2022 5.1 3.7 GLUC 81 mg/dL 06/28/2022 99 74 BUN 9 mg/dL 06/28/2022 21 7 CREAT 0.72 mg/dL 06/28/2022 0.96 0.58 PTSEC No results within date range. INR No results within date range. APTT No results within date range. ALT 18 U/L 06/28/2022 38 7 AST 23 U/L 06/28/2022 35 13 TBILI 0.3 mg/dL 06/28/2022 1.3 0.2 TSH 1.050 mIU/L 06/28/2022 4.200 0.270 Hemoglobin A1C (%) Date Value 06/28/2022 4.8 All in Epic Impression/Recommendations ASSESSMENT: Dysthymia Assessment: Stable, on fluoxetine. Acid reflux Assessment: Stable, sx managed on Pepcid PRN. METS: Climb a flight of stairs or walk up a hill (5.50 METs) Patient denies any chest pain or undue shortness of breath with the above physical activity. ASA Class: 2 ANESTHESIA FINDINGS: Intubation History: No history of difficult intubation Significant Anesthesia Considerations: None Airway Exam: General: Normal appearance Mallampati Score is CLASS II ULBT: Class I - Lower incisors can bite the upper lip above the shahid line Neck: Normal appearance and function Mouth: Normal tongue size and Mouth opening greater than 2 finger breaths Dentition: Caps/crowns Airway History: No abnormal airway history STOP BANG Score: Criteria: Snoring Age over 50 (52 year old) Score = 2 PLAN: This patient is optimally prepared for surgery. CONSULTS: Patient does not require consults for optimization at this time. The Following Tests/Procedures Have Been Initiated: Labs not indicated per PACC protocol, EKG not indicated per PACC protocol Planned Anesthetic: Per anesthesia choice Instructions Given to Patient: Patient given verbal instructions and voices comprehension and compliance. Copy sent electronically via My Chart, email, or mobile device. I spent more than 0-20 minutes getx-kv-[id number] with the patient and over half the time was devoted to counseling and/or coordination of care. This is a virtual visit. It required patient-provider interaction for the medical decision making as documented above. SIGNATURE: Pearl Andrews PA-C PATIENT NAME: Isa Tovar DATE: 08/20/22 TIME: 12:44 PM PAGER/CONTACT #: documented in this encounterUniversity Hospitals Ahu[facility]01-12-2023 Miscellaneous Notes* Telephone Encounter - Padmini Cabral Ma - 08/01/2022 4:28 PM EST Surgery has been scheduled as requested. * Telephone Encounter - Estefany Guzman Ma - 07/31/2022 2:36 PM EST Surgical request completed. Post op appointments mailed to patient. * Telephone Encounter - Estefany Guzman Ma - 07/25/2022 5:06 PM EST Patient scheduled for Right wrist ganglion cyst excision, and right hand open palmar fasciectomy on08/30/22. documented in this encounterUniversity Hospitals Ahu[facility] Center01-05-2023 History of Present illness Narrative* Tree Dougherty MD - 07/25/2022 11:37 AM EST Tree Dougherty MD Department of Orthopaedics Orthopaedics [address] [facility] [address] Dept: [phone] Dept July 25, 2022 CHIEF COMPLAINT: New and Pain of the Right Hand HPI Patient here today for Dupuytren's contracture and a cyst on the right wrist. Patient is left hand dominant. 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 ASSESSMENT: M72.0 Dupuytren's contracture of right hand M67.40 Ganglion cyst PLAN: WE discussed both of these issues at length. The risks, benefits, alternatives and potential complications were reviewed. She would like to proceed with surgery for the wrist ganglion and at the samesetting, we'll do a limited fasciectomy of the Heidi cord. FOLLOW UP INSTRUCTIONS: Schedule at her convenience. Ms. Isa Tovar was advised as to contrast therapies and/or to take analgesics/anti-inflammatories as needed and all contraindications were reviewed. OBJECTIVE: Ms. Isa Tovar is a pleasant 52 year old in no apparent distress. Gen:There were no vitals taken for this visit. nl development, non obese, no deformities ENT: Normocephalic, normal hearing, moist mucosa CV: Pulses:Radial= 2+ and symmetric, capillary refill < 2 secs, no peripheral edema/varicosities Skin: no rash, bruising or lesions. Good turgor. Psych: cooperative and appropriate, alert and oriented x 3, good mood and affect. Musculoskeletal: Volar wrist, lateral to FCR, small, 0.5cm ganglion cyst. Palmar cord, ring finger thickening with 30 degree contracture of MCP. No PIP involvement. IMAGING: Deferred. Supporting Subjective Information Below: Past Medical History: PAST MEDICAL HISTORY Diagnosis Date Depression Past Surgical History: PAST SURGICAL HISTORY Procedure Laterality Date TONSILLECTOMY PRIMARY/SECONDARY <AGE 12 Tonsillectomy VAGINAL HYSTERECTOMY UTERUS 250 GM/< 2009 Hysterectomy, vaginal Family History: FAMILY HISTORY Problem Relation Age of Onset Hypertension Mother Hypertension Father Hypertension Maternal Grandmother Heart Maternal Grandmother Hypertension Sister Heart Brother congenital valve dx, valve replacement/repair Social History: Social History Tobacco Use Smoking status: Former Types: Cigarettes Quit date: 03/04/1995 Years since quittin.4 Smokeless tobacco: Never Substance Use Topics Alcohol use: Yes Comment: occasionally Drug use: No Medications: Current Outpatient Medications Medication Sig FLUoxetine (PROZAC) 40 mg capsule Take 1 capsule by mouth once daily. famotidine (PEPCID) 20 mg tablet Take 1 tablet by mouth at bedtime as needed. Tdecalj-Nntvfrnmi-Rbnn tab Take by mouth. cholecalciferol, vitamin D3, (VITAMIN D3) 100 mcg (4,000 unit) cap Take by mouth. ranitidine (ZANTAC) 150 mg tablet Take 150 mg by mouth twice daily. (Patient not taking: Reported on 07/25/2022) No current facility-administered medications for this visit. Allergies: Patient has no known allergies. ROS: General (negative for fatigue, malaise, weight loss/gain) HEENT (negative for headache, earache, recent vision changes, sinus pain, sore throat) Respiratory (no recent shortness of breath, hemoptysis) CV (negative for chest tightness, palpitations) Musculoskeletal (see HPI) Psych (no depression, anxiety) REFERRING PHYSICIAN: Consultation requested by Ivory Espinoza for an opinion regarding wrist ganglion. My final recommendations will be communicated back to the requesting physician by way of shared Medical record or letter to requesting physician via US mail. Ivory Espinoza [address] [facility] [address] Brandon Monet DO [address] [facility] [address] Tree Dougherty MD documented in this encounterUniversity Hospitals Ahu[facility] Center12-12-2022 Miscellaneous Notes* Telephone Encounter - Bernadette Altman Ma - 07/01/2022 3:50 PM EST Pt informed, verbalized understanding Bernadette Altman Ma * Telephone Encounter - Ivory Espinoza APRN.CNP - 07/01/2022 3:38 PM EST I would recommend she continue the multivitamin and then cut back the extra D3 to 1000 international unit(s) in addition. Ivory Espinoza APRN.CNP * Telephone Encounter - Tanja Dye LPN - 07/01/2022 3:33 PM EST Pt notified of results and provider message. Pt reports she takes Vitamin D3 2000 international unit(s) and also a multivitamin that has 1000IU in it. Tanja Dye LPN * Telephone Encounter - Bernadette Altman Ma - 07/01/2022 3:06 PM EST Left message for patient to return call for results Bernadette Altman Ma * Telephone Encounter - Ivory Espinoza APRN.CNP - 07/01/2022 2:46 PM EST Please let Isa know that we received her lab results. Her vitamin D level is high. Is she currently taking a vitamin D3 supplement? Otherwise everything else looks good. Ivory Espinoza APRN.CNP * Telephone Encounter - Bernadette Altman Ma - 07/01/2022 2:25 PM EST No notes attached Bernadette Altman Ma documented in this encounterUniversity Hospitals Ahu[facility] Center09-08-2022 History of Present illness Narrative* Nicolas Montano MD - 03/28/2022 6:47 PM EDT Patient presents with: Pain (foot): (RT) foot/toe injury dropped water bottle on foot/laceration pain rated 3, onset x1 hrprior. HPI: Express Care Triage Note: Patient presents to the express care with complaint of toe laceration. She dropped her metal water bottle on the right 3rd toe this evening. The toe is lacerated on the medial, dorsal, and lateral aspect of the middle phalange-DIP joint and the tip is mobile on the digit. Patient referred to the ERfor further treatment of near degloving injury. MEDICATIONS: FLUoxetine HCl (PROZAC) 40 mg capsule TAKE 1 CAPSULE BY MOUTH EVERY DAY famotidine (PEPCID) 20 mg tablet Take 1 tablet by mouth at bedtime as needed. ranitidine (ZANTAC) 150 mg tablet Take 150 mg by mouth twice daily. Meggxvg-Kendwlhhh-Zzgc tab Take by mouth. cholecalciferol, vitamin D3, (VITAMIN D3) 100 mcg (4,000 unit) cap Take by mouth. ALLERGIES: ALLERGIES No Known Allergies VITALS: BP 138/76 Pulse (!) 55 Temp 37.2 C (99 F) Resp 16 SpO2 100% documented in this encounterUniversity Hospitals Ahuja Medical CenterEvalusaint francis healthcare noteNo assessment information availableWGreen Cross Hospital Work Phone: Evaluation note* Diagnosis Laceration of third toe of right foot, initial encounter- Primary documented in this encounter [facility] CenterEval[facility]aint franc[facility] note* Diagnosis Encounter for screening mammogram for breast cancer documented [facility]* Diagnosis Ganglion of right wrist- Primary Ganglion of joint Dupuytren's contracture Contracture of palmar fascia Ganglion of right wrist Ganglion of joint Dupuytren's contracture Contracture of palmar fascia documented in this encounter [facility] Center[facility]* Diagnosis Dupuytren's contracture of right hand Contracture of palmar fascia Ganglion cyst Ganglion, unspecified Ganglion of right wrist Ganglion of joint Dupuytren's contracture Contracture of palmar fascia documented in this encounter [facility] CenterEval[facility]* Diagnosis Preoperative examination- Primary Preoperative examination, unspecified Dysthymia Dysthymic disorder Gastroesophageal reflux disease, unspecified whether esophagitis present Ganglion of right wrist Ganglion of joint Dupuytren's contracture Contracture of palmar fascia documented in this encounter [facility] Center[facility]* Diagnosis Ganglion of right wrist- Primary Ganglion of joint Dupuytren's contracture Contracture of palmar fascia documented in this encounter [facility]* Diagnosis Acute cough- Primary Rib pain Chest pain, unspecified Pneumonia of left lower lobe due to infectious organism documented in this encounter [facility] CenterEval[facility] note* Diagnosis Contact dermatitis due to plants, except food, unspecified contact dermatitis type- Primary documented in this encounter [facility]* Diagnosis Ganglion of right wrist- Primary Ganglion of joint Dupuytren's contracture of right hand Contracture of palmar fascia documented in this encounter [facility] CenterEval[facility]* Diagnosis Dysthymia Dysthymic disorder documented in this encounter [facility]* Diagnosis Screening mammogram for breast cancer- Primary documented in this encounter [facility]* Diagnosis Preoperative examination- Primary Preoperative examination, unspecified Dysthymia Dysthymic disorder Gastroesophageal reflux disease, unspecified whether esophagitis present Chronic pain of right knee Knee effusion, right Effusion of lower leg joint documented in this encounter [facility] note* Diagnosis Preoperative examination- Primary Preoperative examination, unspecified Dysthymia Dysthymic disorder Gastroesophageal reflux disease, unspecified whether esophagitis present Acute cough documented in this encounter [facility] note* Diagnosis Preoperative examination- Primary Preoperative examination, unspecified Dysthymia Dysthymic disorder Gastroesophageal reflux disease, unspecified whether esophagitis present Injury of left upper arm, initial encounter- Primary Elevated BP without diagnosis of hypertension documented in this encounter [facility] note* Diagnosis Preoperative examination- Primary Preoperative examination, unspecified Dysthymia Dysthymic disorder Gastroesophageal reflux disease, unspecified whether esophagitis present Injury of left upper arm, initial encounter documented in this encounter [facility]* Diagnosis Preoperative examination- Primary Preoperative examination, unspecified Dysthymia Dysthymic disorder Gastroesophageal reflux disease, unspecified whether esophagitis present Closed nondisplaced fracture of head of left radius, initial encounter- Primary documented in this encounter [facility] note* Diagnosis Preoperative examination- Primary Preoperative examination, unspecified Dysthymia Dysthymic disorder Gastroesophageal reflux disease, unspecified whether esophagitis present Closed nondisplaced fracture of head of left radius with routine healing, subsequent encounter- Primary Primary hypertension Unspecified essential hypertension Headache, unspecified headache type Primary hypertension Unspecified essential hypertension documented in this encounter [facility] note* Diagnosis Preoperative examination- Primary Preoperative examination, unspecified Dysthymia Dysthymic disorder Gastroesophageal reflux disease, unspecified whether esophagitis present Primary hypertension Unspecified essential hypertension documented in this encounter [facility]* Diagnosis Preoperative examination- Primary Preoperative examination, unspecified Dysthymia Dysthymic disorder Gastroesophageal reflux disease, unspecified whether esophagitis present Primary hypertension Unspecified essential hypertension documented in this encounter [facility] note* Diagnosis Preoperative examination- Primary Preoperative examination, unspecified Dysthymia Dysthymic disorder Gastroesophageal reflux disease, unspecified whether esophagitis present Primary hypertension- Primary Unspecified essential hypertension documented in this encounter [facility]* Diagnosis Preoperative examination- Primary Preoperative examination, unspecified Dysthymia Dysthymic disorder Gastroesophageal reflux disease, unspecified whether esophagitis present Primary hypertension- Primary Unspecified essential hypertension Dysthymia Dysthymic disorder documented in this encounter [facility]* Diagnosis Preoperative examination- Primary Preoperative examination, unspecified Dysthymia Dysthymic disorder Gastroesophageal reflux disease, unspecified whether esophagitis present Primary hypertension- Primary Unspecified essential hypertension documented in this encounter [facility]* Diagnosis Preoperative examination- Primary Preoperative examination, unspecified Dysthymia Dysthymic disorder Gastroesophageal reflux disease, unspecified whether esophagitis present Primary hypertension- Primary Unspecified essential hypertension Dysthymia Dysthymic disorder documented in this encounter [facility] note* Diagnosis Preoperative examination- Primary Preoperative examination, unspecified Dysthymia Dysthymic disorder Gastroesophageal reflux disease, unspecified whether esophagitis present Primary hypertension Unspecified essential hypertension documented in this encounter [facility] note* Diagnosis Preoperative examination- Primary Preoperative examination, unspecified Dysthymia Dysthymic disorder Gastroesophageal reflux disease, unspecified whether esophagitis present Dysthymia Dysthymic disorder documented in this encounter [facility] note* Diagnosis Preoperative examination- Primary Preoperative examination, unspecified Dysthymia Dysthymic disorder Gastroesophageal reflux disease, unspecified whether esophagitis present Primary hypertension Unspecified essential hypertension documented in this encounter [facility] note* Diagnosis Preoperative examination- Primary Preoperative examination, unspecified Dysthymia Dysthymic disorder Gastroesophageal reflux disease, unspecified whether esophagitis present Resistant hypertension- Primary documented in this encounter [facility] note* Diagnosis Preoperative examination- Primary Preoperative examination, unspecified Dysthymia Dysthymic disorder Gastroesophageal reflux disease, unspecified whether esophagitis present Primary hypertension Unspecified essential hypertension documented in this encounter [facility] note* Diagnosis Preoperative examination- Primary Preoperative examination, unspecified Dysthymia Dysthymic disorder Gastroesophageal reflux disease, unspecified whether esophagitis present Acute maxillary sinusitis, recurrence not specified- Primary Hypertension, unspecified type documented in this encounter [facility]* Diagnosis Preoperative examination- Primary Preoperative examination, unspecified Dysthymia Dysthymic disorder Gastroesophageal reflux disease, unspecified whether esophagitis present Resistant hypertension documented in this encounter [facility] note* Diagnosis Preoperative examination- Primary Preoperative examination, unspecified Dysthymia Dysthymic disorder Gastroesophageal reflux disease, unspecified whether esophagitis present Hyponatremia- Primary Hyposmolality and/or hyponatremia Hypokalemia Hypopotassemia Primary hypertension Unspecified essential hypertension documented in this encounter [facility] note* Diagnosis Preoperative examination- Primary Preoperative examination, unspecified Dysthymia Dysthymic disorder Gastroesophageal reflux disease, unspecified whether esophagitis present Hospital discharge follow-up- Primary Other follow-up examination Dysuria Urinary urgency Urgency of urination Primary hypertension Unspecified essential hypertension Hyponatremia Hyposmolality and/or hyponatremia Nonintractable episodic headache, unspecified headache type Yeast infection Candidiasis of unspecified site documented in this encounter [facility] note* Diagnosis Preoperative examination- Primary Preoperative examination, unspecified Dysthymia Dysthymic disorder Gastroesophageal reflux disease, unspecified whether esophagitis present Hyponatremia- Primary Hyposmolality and/or hyponatremia documented in this encounter [facility] note* Diagnosis Preoperative examination- Primary Preoperative examination, unspecified Dysthymia Dysthymic disorder Gastroesophageal reflux disease, unspecified whether esophagitis present Dysuria- Primary Urinary urgency Urgency of urination documented in this encounter [facility] note* Diagnosis Preoperative examination- Primary Preoperative examination, unspecified Dysthymia Dysthymic disorder Gastroesophageal reflux disease, unspecified whether esophagitis present Encounter for screening mammogram for breast cancer documented in this encounter [facility] note* Diagnosis Preoperative examination- Primary Preoperative examination, unspecified Dysthymia Dysthymic disorder Gastroesophageal reflux disease, unspecified whether esophagitis present Resistant hypertension- Primary documented in this encounter [facility] Discharge instructions Additional Instructions Follow-up with your primary care doctor in 3 to 5 days to monitor your blood pressure in order a BMP to monitor your sodium levels. We did stop your chlorthalidone which is likely the cause of your low sodium level.[facility] Work Phone: Reason for referral (narrative)* Diagnostic Procedure Only (Routine) - Pending Review Specialty Diagnoses / Procedures Referred By Gabriel t Referred To Contact [facility] Diagnoses Encounter for screening mammogram for breast cancer Procedures JOSE ANTONIO SCREENING SCREENING MAMMOGRAPHY BI 2-VIEW BREAST INC Brandon Mackey, [address] [place] [address] [facility] [address] [place] [address] Referral ID Status Reason Start Date Expiration Date Visits Requested Visits Authorized [id number] Pending Review Auto-Generat ed Referral 2 07/12/2023 1 1 [facility] for referral (narrative)* Diagnostic Procedure Only (Routine) - Pending Review Specialty Diagnoses / Procedures Referred By Gabriel t Referred To Contact [facility] Diagnoses Screening mammogram for breast cancer Procedures JOSE ANTONIO SCREENING W SUZANNE SCREENING DIGITAL BREAST TOMOSYNTHESIS BI SCREENING MAMMOGRAPHY BI 2-VIEW BREAST INC CAD Ivory Espinoza APRN.SCREEN PRINTER HELPER [address] [place] [address] [facility] [address] [place] [address] Referral ID Status Reason Start Date Expiration Date Visits Requested Visits Authorized [id number] Pending Review Auto-Generat ed Referral 11/18/2023 12/17/2024 1 1 [facility] for referral (narrative)* Diagnostic Procedure Only (Urgent) - Closed Specialty Diagnoses / Procedures Referred By Gabriel birmingham Referred To Contact XR IMAGING Diagnoses Chronic pain of right knee Knee effusion, right Procedures XR KNEE GENERAL 4V AP BOTH/PA BOTH/LAT/MERC BILATERAL RADIOLOGIC EXAM KNEE COMPLETE 4/MORE VIEWS Ivory Espinoza APRN.SCREEN PRINTER HELPER [address] [place] [address] [place] [address] Referral ID Status Reason Start Date Expiration Date V isits Requested Visits Authorized [id number] Closed Auto-Generate d Referral 08/01/2023 08/30/2024 1 1 [facility] for referral (narrative)* Diagnostic Procedure Only (Routine) - Closed Specialty Diagnoses / Procedures Referred By Gabriel t Referred To Contact XR IMAGING Diagnoses Injury of left upper arm, initial encounter Procedures XR ELBOW GENERAL 2V AP/LAT LEFT RADEX ELBOW 2 VIEWS Ronny Goodman FEED RESEARCH AIDE.SCREEN PRINTER HELPER [address] [place] [address] [place] [address] Referral ID Status Reason Start Date Expiration Date V isits Requested Visits Authorized [id number] Closed Auto-Generate d Referral 04/27/2024 05/27/2025 1 1 * Diagnostic Procedure Only (Routine) - Closed Specialty Diagnoses / Procedures Referred By Contac t Referred To Contact XR IMAGING Diagnoses Injury of left upper arm, initial encounter Procedures XR WRIST GENERAL 3V PA/LAT/OBL LEFT RADEX WRIST COMPLETE MINIMUM 3 VIEWS Ronny Goodman APRN.SCREEN PRINTER HELPER [address] [place] [address] [place] [address] Referral ID Status Reason Start Date Expiration Date V isits Requested Visits Authorized [id number] Closed Auto-Generate d Referral 04/27/2024 05/27/2025 1 1 [facility] for referral (narrative)* Outpatient Procedure (Routine) - New Request Specialty Diagnoses / Procedures Referred By Contac t Referred To [facility] Diagnoses Primary hypertension Procedures ECG COMPLETE ECG ROUTINE ECG W/LEAST 12 LDS W/I&R Ivory Espinoza APRN.SCREEN PRINTER HELPER [address] [place] [address] [facility] [address] [place] [address] Referral ID Status Reason Start Date Expiration Date Visits Requested Visits Authorized [id number] New Request Auto-Generat ed Referral 05/05/2025 1 1 * Outpatient Procedure (Routine) - Authorized Specialty Diagnoses / Procedures Referred By Contac t Referred To [facility] Diagnoses Primary hypertension Procedures ECHO ECHO TTHRC R-T 2D W/WOM-MODE COMPL SPEC&COLR D Ivory Espinoza APRN.SCREEN PRINTER HELPER [address] [place] [address] [address] Referral ID Status Reason Start Date Expiration Date Visits Requested Visits Authorized [id number] Authorized Auto-Generat ed Referral 05/05/2025 1 1 [facility] for referral (narrative)* Outpatient Procedure (Routine) - New Request Specialty Diagnoses / Procedures Referred By Contac t Referred To Contact [facility] Diagnoses Primary hypertension Procedures US RENAL ARTERY RENETTA VAS LAB DUP-SCAN ARTL ELSA ABDL/PEL/SCROT&/RPR ORGN COM Iza Simms APRN.SCREEN PRINTER HELPER [address] [place] [address] [address] Referral ID Status Reason Start Date Expiration Date Visits Requested Visits Authorized [id number] New Request Auto-Generat ed Referral 08/13/2024 08/13/2025 1 1 * Outpatient Procedure (Routine) - Authorized Specialty Diagnoses / Procedures Referred By Contac t Referred To Contact [facility] Diagnoses Primary hypertension Procedures EXERCISE STRESS ECG (WITHOUT IMAGING) CV STRS TST XERS&/OR RX CONT ECG TRCG ONLY Iza Simms APRN.SCREEN PRINTER HELPER [address] [place] [address] [address] Referral ID Status Reason Start Date Expiration Date Visits Requested Visits Authorized [id number] Authorized Auto-Generat ed Referral 08/13/2024 08/13/2025 1 1 [facility] for referral (narrative)* Outpatient Procedure (Routine) - Closed Specialty Diagnoses / Procedures Referred By Contac t Referred To Contact [facility] Diagnoses Primary hypertension Procedures US RENAL ARTERY RENETTA VAS LAB DUP-SCAN ARTL ELSA ABDL/PEL/SCROT&/RPR ORGN COM Iza Simms FEED RESEARCH AIDE.SCREEN PRINTER HELPER [address] [place] [address] [facility] [address] [place] [address] Referral ID Status Reason Start Date Expiration Date V isits Requested Visits Authorized [id number] Closed Auto-Generate d Referral 08/13/2024 08/13/2025 1 1 [facility] for referral (narrative)No reason for referral information [facility]: Reason for visit Narrative* Diagnostic Procedure Only (Urgent) - Closed Specialty Diagnoses / Procedures Referred By Contac t Referred To Contact XR IMAGING Diagnoses Chronic pain of right knee Knee effusion, right Procedures XR KNEE GENERAL 4V AP BOTH/PA BOTH/LAT/MERC BILATERAL RADIOLOGIC EXAM KNEE COMPLETE 4/MORE VIEWS Ivory Espinoza, FEED RESEARCH AIDE.SCREEN PRINTER HELPER [address] [place] [id number] [place] [address] Referral ID Status Reason Start Date Expiration Date V isits Requested Visits Authorized [id number] Closed Auto-Generate d Referral 08/01/2023 08/30/2024 1 1 [facility] for visit Narrative* Diagnostic Procedure Only (Routine) - Closed Specialty Diagnoses / Procedures Referred By Contac t Referred To Contact XR IMAGING Diagnoses Injury of left upper arm, initial encounter Procedures XR ELBOW GENERAL 2V AP/LAT LEFT RADEX ELBOW 2 VIEWS Ronny Goodman, FEED RESEARCH AIDE.SCREEN PRINTER HELPER [address] [place] [address] [place] [address] Referral ID Status Reason Start Date Expiration Date V isits Requested Visits Authorized [id number] Closed Auto-Generate d Referral 04/27/2024 05/27/2025 1 1 [facility] for visit Narrative* Outpatient Procedure (Routine) - Closed Specialty Diagnoses / Procedures Referred By Contac t Referred To [facility] Diagnoses Primary hypertension Procedures US RENAL ARTERY RENETTA VAS LAB DUP-SCAN ARTL ELSA ABDL/PEL/SCROT&/RPR ORGN COM Iza Simms APRN.SCREEN PRINTER HELPER [address] [place] [address] [facility] [address] [place] [address] Referral ID Status Reason Start Date Expiration Date V isits Requested Visits Authorized [id number] Closed Auto-Generate d Referral 08/13/2024 08/13/2025 1 1 [facility] Chief Complaint and Reason for Visit Chief Complaint LAC Chief Complaint SCREENING Chief Complaint Admit Date HYPERTENSION August 07, 2024 5 :39pm HYPO NATREMIA AND HYPOKALEMIA September 3:00pm Reason for Visit Admit Date Acute hypokalemia October 08, 2024 3:0 0pm Acute hyponatremia October 08, 2024 3:0 0pm Hypertension October 08, 2024 3:0 0pm Advance Directives No Advanced Directives Records Found Advance Directive Response Recorded Date/ Time Living Will No March 28 7:20pm Power of Occup Ther No March 28, 2022 7:20pm Advance Directive Response Recorded Date/ Time Living Will No March 28 6:20pm Power of Occup Ther No March 28, 2022 6:20pm Advance Directive Response Recorded Date/ Time Living Will Yes August 07 7:33pm Do you have a Healthcare Power of Occup Ther? Yes August 07, 2024 7:33pm Name of Medical Power of Occup Ther Les Deanne i August 07, 2024 7:33pm Living Will Yes October 08, 2024 1:57pm Do you have a Healthcare Power of Occup Ther? Yes October 08, 2024 1:57pm Name of Medical Power of Occup Ther Les October 08, 2024 1:57pm Advance Directive Response Recorded Date/ Time Living Will Yes August 07 7:33pm Do you have a Healthcare Power of Occup Ther? Yes August 07, 2024 7:33pm Name of Medical Power of Occup Ther Les Deanne i August 07, 2024 7:33pm Living Will Yes October 08, 2024 3:58pm Do you have a Healthcare Power of Occup Ther? Yes October 08, 2024 3:58pm Name of Medical Power of Occup Ther Les- October 08, 2024 3:58pm Summary Purpose Family History No Family History Records FoundNo Family History Records FoundNo Family History Records FoundNo Family History Records FoundNo Family History Records Found Reason for Referral Specialty Diagnoses / Procedures Referred By Gabriel birmingham Referred To Contact Orthopedics Diagnoses Closed nondisplaced fracture of head of left radius, initial encounter Procedures CONSULT TO ORTHOPAEDICS OFFICE/OUTPATIENT [facility] 60 MINUTES Genoveva Carrera PA-C [address] [place] [address] Referral ID Status Reason Start Date Expiration Date Visits Requested Visits Authorized [id number] Authorized PCP Requested Referral 4 05/03/2025 1 1 Additional Source Comments Goals (unrecognized section and content) Goals may be documented in a n alternate sectionGoals may be documented in an alternate sectionGoals may be documented in an alternate sectionGoals may be documented in an alternate section Source Comments (unrecognize d section and content) In the event this informatio n is protected by the Federal Confidentiality of Alcohol and Drug Abuse Patient Records regulations: The Federal rules restrict any use of the information to criminally investigate or prosecute any alcohol or drug abuse patient.[facility] the event this information is protected by the Federal Confidentiality of Alcohol and Drug Abuse Patient Records regulations: The Federal rules restrict any use of the information to criminally investigate or prosecute any alcohol or drug abuse patient.[facility] Center[facility] the event this information is protected by the Federal Confidentiality of Alcohol and Drug Abuse Patient Records regulations: The Federal rules restrict any use of the information to criminally investigate or prosecute any alcohol or drug abuse patient.[facility] Center[facility] the event this information is protected by the Federal Confidentiality of Alcohol and Drug Abuse Patient Records regulations: The Federal rules restrict any use of the information to criminally investigate or prosecute any alcohol or drug abuse patient.[facility] Center[facility] the event this information is protected by the Federal Confidentiality of Alcohol and Drug Abuse Patient Records regulations: The Federal rules restrict any use of the information to criminally investigate or prosecute any alcohol or drug abuse patient.[facility] Center[facility] the event this information is protected by the Federal Confidentiality of Alcohol and Drug Abuse Patient Records regulations: The Federal rules restrict any use of the information to criminally investigate or prosecute any alcohol or drug abuse patient.[facility] CenterIn the event this information is protected by the Federal Confidentiality of Alcohol and Drug Abuse Patient Records regulations: The Federal rules restrict any use of the information to criminally investigate or prosecute any alcohol or drug abuse patient.[facility] Center[facility] the event this information is protected by the Federal Confidentiality of Alcohol and Drug Abuse Patient Records regulations: The Federal rules restrict any use of the information to criminally investigate or prosecute any alcohol or drug abuse patient.[facility] Center[facility] the event this information is protected by the Federal Confidentiality of Alcohol and Drug Abuse Patient Records regulations: The Federal rules restrict any use of the information to criminally investigate or prosecute any alcohol or drug abuse patient.[facility] CenterIn the event this information is protected by the Federal Confidentiality of Alcohol and Drug Abuse Patient Records regulations: The Federal rules restrict any use of the information to criminally investigate or prosecute any alcohol or drug abuse patient.[facility] Center[facility] the event this information is protected by the Federal Confidentiality of Alcohol and Drug Abuse Patient Records regulations: The Federal rules restrict any use of the information to criminally investigate or prosecute any alcohol or drug abuse patient.[facility] Center[facility] the event this information is protected by the Federal Confidentiality of Alcohol and Drug Abuse Patient Records regulations: The Federal rules restrict any use of the information to criminally investigate or prosecute any alcohol or drug abuse patient.[facility] CenterIn the event this information is protected by the Federal Confidentiality of Alcohol and Drug Abuse Patient Records regulations: The Federal rules restrict any use of the information to criminally investigate or prosecute any alcohol or drug abuse patient.[facility] Center[facility] the event this information is protected by the Federal Confidentiality of Alcohol and Drug Abuse Patient Records regulations: The Federal rules restrict any use of the information to criminally investigate or prosecute any alcohol or drug abuse patient.[facility] Center[facility] the event this information is protected by the Federal Confidentiality of Alcohol and Drug Abuse Patient Records regulations: The Federal rules restrict any use of the information to criminally investigate or prosecute any alcohol or drug abuse patient.[facility] Center[facility] the event this information is protected by the Federal Confidentiality of Alcohol and Drug Abuse Patient Records regulations: The Federal rules restrict any use of the information to criminally investigate or prosecute any alcohol or drug abuse patient.[facility] CenterIn the event this information is protected by the Federal Confidentiality of Alcohol and Drug Abuse Patient Records regulations: The Federal rules restrict any use of the information to criminally investigate or prosecute any alcohol or drug abuse patient.[facility] CenterIn the event this information is protected by the Federal Confidentiality of Alcohol and Drug Abuse Patient Records regulations: The Federal rules restrict any use of the information to criminally investigate or prosecute any alcohol or drug abuse patient.[facility] CenterIn the event this information is protected by the Federal Confidentiality of Alcohol and Drug Abuse Patient Records regulations: The Federal rules restrict any use of the information to criminally investigate or prosecute any alcohol or drug abuse patient.[facility] CenterIn the event this information is protected by the Federal Confidentiality of Alcohol and Drug Abuse Patient Records regulations: The Federal rules restrict any use of the information to criminally investigate or prosecute any alcohol or drug abuse patient.[facility] CenterIn the event this information is protected by the Federal Confidentiality of Alcohol and Drug Abuse Patient Records regulations: The Federal rules restrict any use of the information to criminally investigate or prosecute any alcohol or drug abuse patient.[facility] CenterIn the event this information is protected by the Federal Confidentiality of Alcohol and Drug Abuse Patient Records regulations: The Federal rules restrict any use of the information to criminally investigate or prosecute any alcohol or drug abuse patient.[facility] CenterIn the event this information is protected by the Federal Confidentiality of Alcohol and Drug Abuse Patient Records regulations: The Federal rules restrict any use of the information to criminally investigate or prosecute any alcohol or drug abuse patient.[facility] CenterIn the event this information is protected by the Federal Confidentiality of Alcohol and Drug Abuse Patient Records regulations: The Federal rules restrict any use of the information to criminally investigate or prosecute any alcohol or drug abuse patient.[facility] CenterIn the event this information is protected by the Federal Confidentiality of Alcohol and Drug Abuse Patient Records regulations: The Federal rules restrict any use of the information to criminally investigate or prosecute any alcohol or drug abuse patient.[facility] CenterIn the event this information is protected by the Federal Confidentiality of Alcohol and Drug Abuse Patient Records regulations: The Federal rules restrict any use of the information to criminally investigate or prosecute any alcohol or drug abuse patient.[facility] CenterIn the event this information is protected by the Federal Confidentiality of Alcohol and Drug Abuse Patient Records regulations: The Federal rules restrict any use of the information to criminally investigate or prosecute any alcohol or drug abuse patient.[facility] CenterIn the event this information is protected by the Federal Confidentiality of Alcohol and Drug Abuse Patient Records regulations: The Federal rules restrict any use of the information to criminally investigate or prosecute any alcohol or drug abuse patient.[facility] CenterIn the event this information is protected by the Federal Confidentiality of Alcohol and Drug Abuse Patient Records regulations: The Federal rules restrict any use of the information to criminally investigate or prosecute any alcohol or drug abuse patient.[facility] CenterIn the event this information is protected by the Federal Confidentiality of Alcohol and Drug Abuse Patient Records regulations: The Federal rules restrict any use of the information to criminally investigate or prosecute any alcohol or drug abuse patient.[facility] CenterIn the event this information is protected by the Federal Confidentiality of Alcohol and Drug Abuse Patient Records regulations: The Federal rules restrict any use of the information to criminally investigate or prosecute any alcohol or drug abuse patient.[facility] CenterIn the event this information is protected by the Federal Confidentiality of Alcohol and Drug Abuse Patient Records regulations: The Federal rules restrict any use of the information to criminally investigate or prosecute any alcohol or drug abuse patient.[facility] CenterIn the event this information is protected by the Federal Confidentiality of Alcohol and Drug Abuse Patient Records regulations: The Federal rules restrict any use of the information to criminally investigate or prosecute any alcohol or drug abuse patient.[facility] CenterIn the event this information is protected by the Federal Confidentiality of Alcohol and Drug Abuse Patient Records regulations: The Federal rules restrict any use of the information to criminally investigate or prosecute any alcohol or drug abuse patient.[facility] CenterIn the event this information is protected by the Federal Confidentiality of Alcohol and Drug Abuse Patient Records regulations: The Federal rules restrict any use of the information to criminally investigate or prosecute any alcohol or drug abuse patient.[facility] CenterIn the event this information is protected by the Federal Confidentiality of Alcohol and Drug Abuse Patient Records regulations: The Federal rules restrict any use of the information to criminally investigate or prosecute any alcohol or drug abuse patient.[facility] CenterIn the event this information is protected by the Federal Confidentiality of Alcohol and Drug Abuse Patient Records regulations: The Federal rules restrict any use of the information to criminally investigate or prosecute any alcohol or drug abuse patient.[facility] CenterIn the event this information is protected by the Federal Confidentiality of Alcohol and Drug Abuse Patient Records regulations: The Federal rules restrict any use of the information to criminally investigate or prosecute any alcohol or drug abuse patient.[facility] CenterIn the event this information is protected by the Federal Confidentiality of Alcohol and Drug Abuse Patient Records regulations: The Federal rules restrict any use of the information to criminally investigate or prosecute any alcohol or drug abuse patient.[facility] CenterIn the event this information is protected by the Federal Confidentiality of Alcohol and Drug Abuse Patient Records regulations: The Federal rules restrict any use of the information to criminally investigate or prosecute any alcohol or drug abuse patient.[facility] CenterIn the event this information is protected by the Federal Confidentiality of Alcohol and Drug Abuse Patient Records regulations: The Federal rules restrict any use of the information to criminally investigate or prosecute any alcohol or drug abuse patient.[facility] CenterIn the event this information is protected by the Federal Confidentiality of Alcohol and Drug Abuse Patient Records regulations: The Federal rules restrict any use of the information to criminally investigate or prosecute any alcohol or drug abuse patient.[facility] CenterIn the event this information is protected by the Federal Confidentiality of Alcohol and Drug Abuse Patient Records regulations: The Federal rules restrict any use of the information to criminally investigate or prosecute any alcohol or drug abuse patient.[facility] CenterIn the event this information is protected by the Federal Confidentiality of Alcohol and Drug Abuse Patient Records regulations: The Federal rules restrict any use of the information to criminally investigate or prosecute any alcohol or drug abuse patient.[facility] CenterIn the event this information is protected by the Federal Confidentiality of Alcohol and Drug Abuse Patient Records regulations: The Federal rules restrict any use of the information to criminally investigate or prosecute any alcohol or drug abuse patient.[facility] CenterIn the event this information is protected by the Federal Confidentiality of Alcohol and Drug Abuse Patient Records regulations: The Federal rules restrict any use of the information to criminally investigate or prosecute any alcohol or drug abuse patient.[facility] CenterIn the event this information is protected by the Federal Confidentiality of Alcohol and Drug Abuse Patient Records regulations: The Federal rules restrict any use of the information to criminally investigate or prosecute any alcohol or drug abuse patient.[facility] CenterIn the event this information is protected by the Federal Confidentiality of Alcohol and Drug Abuse Patient Records regulations: The Federal rules restrict any use of the information to criminally investigate or prosecute any alcohol or drug abuse patient.[facility] CenterIn the event this information is protected by the Federal Confidentiality of Alcohol and Drug Abuse Patient Records regulations: The Federal rules restrict any use of the information to criminally investigate or prosecute any alcohol or drug abuse patient.[facility] CenterIn the event this information is protected by the Federal Confidentiality of Alcohol and Drug Abuse Patient Records regulations: The Federal rules restrict any use of the information to criminally investigate or prosecute any alcohol or drug abuse patient.[facility] CenterIn the event this information is protected by the Federal Confidentiality of Alcohol and Drug Abuse Patient Records regulations: The Federal rules restrict any use of the information to criminally investigate or prosecute any alcohol or drug abuse patient.[facility] CenterIn the event this information is protected by the Federal Confidentiality of Alcohol and Drug Abuse Patient Records regulations: The Federal rules restrict any use of the information to criminally investigate or prosecute any alcohol or drug abuse patient.[facility] Reason for Visit (unrecogniz ed section and content) Reason Comments Pain (foot) (RT) foot/toe injury dropped water bottle on foot/laceration pain rated 3, onset x1 hr prior. Reason Comments Results Reason Comments Schedule Surgery Reason Comments New Pain Specialty Diagnoses / Procedures Referred By Gabriel birmingham Referred To Contact Orthopedics Diagnoses Dupuytren's contracture of right hand Ganglion cyst Procedures CONSULT TO ORTHOPAEDICS OFFICE/OUTPATIENT NEW HIGH MDM 60-74 MINUTES Ivory Espinoza, FEED RESEARCH AIDE.SCREEN PRINTER HELPER [address] [place] [address] Referral ID Status Reason Start Date Expiration Date Visits Requested Visits Authorized [id number] Pending Review PCP Requested Referral 06/28/2022 06/28/2023 1 1 Reason Comments Anesthesia Consult Reason Comments Established Patient Post Op Reason Comments Cough Pt reported chest co ngestion, x1 wk. Reason Comments Rash itching, rash all ov er x 1 week Reason Onset Date Comments Refill Request 08/21/2023 Reason Comments Orders Reason Comments Arm Pain Reason Comments Results Reason Comments BP Check Reason Comments BP Check Recently in ER 05/30 for hypertension, taking 40mg of lisinopril, brain fog, lightheaded, deep dry cough x couple weeks Reason Comments BP Check Reason Comments BP Check Has not started new med change- see ClariFI message 07/20 Reason Comments Hypertension Reason Comments b/p elavation in er Reason Comments Refill Request Reason Comments Follow Up Hypertension Reason Comments URI X2 weeks Reason Comments Consult Specialty Diagnoses / Procedures Referred By Gabriel birmingham Referred To Contact Nephrology Diagnoses Resistant hypertension Procedures CONSULT TO NEPHROLOGY OFFICE/OUTPATIENT NEW HIGH MDM 60 MINUTES Ivory Espinoza, FEED RESEARCH AIDE.SCREEN PRINTER HELPER [address] [place] [address] Phone: tel: fax: Referral ID Status Reason Start Date Expiration Date V isits Requested Visits Authorized [id number] Closed PCP Requested Referral 08/31/2024 08/31/2025 1 1 Reason Comments BP Check Was in ER 10/12 for l ow potassium and sodium Reason Onset Date Comments Results 10/14/2024 Reason Onset Date Comments Results 10/08/2024 Reason Comments Appointment Orders Reason Comments Follow Up Reason Comments Insurance Authorization PRIOR AUTH MELVA NOLATONE 25 MG Care Teams (unrecognized sec tion and content) Mask Design Engineer Relationship Specialty Start Date End Date Monet, Brandon L, DO [address] [place] [address] PCP - General Family Practice 08/23/15 Mask Design Engineer Relationship Specialty Start Date End Date Brandon Monet, DO [address] [place] [address] PCP - General Family Medicine 08/23/15 Mask Design Engineer Relationship Specialty Start Date End Date Brandon Monet, DO [address] [place] [address] PCP - General Family Medicine 08/23/15 Mask Design Engineer Relationship Specialty Start Date End Date Brandon Monet, DO [address] [place] [address] PCP - General Family Medicine 08/23/15 Mask Design Engineer Relationship Specialty Start Date End Date Brandon Monet, DO [address] [place] [address] PCP - General Family Medicine 08/23/15 Mask Design Engineer Relationship Specialty Start Date End Date Brandon Monet DO [address] [place] [address] PCP - General Family Medicine 08/23/15 Mask Design Engineer Relationship Specialty Start Date End Date Brandon Monet DO [address] [place] [address] PCP - General Family Medicine 08/23/15 Mask Design Engineer Relationship Specialty Start Date End Date Brandon Monet DO [address] [place] [address] PCP - General Family Medicine 08/23/15 Team Status: Active Member Role Status Dates Dr. Brandon Monet , DO Family Provider Active Dr. Brandon Monet , DO Primary Care Provider Active Team Status: Inactive Member Role Status Dates Dr. Brandon Monet , DO Primary Care Provider Active Ivory Espinoza BANDSAW OPERATOR, BANDSAW OPERATOR-C Attending Provider, Referisaiah g Provider Active Mask Design Engineer Relationship Specialty Start Date End Date Brandon Monet DO [address] [place] [address] PCP - General Family Medicine 08/23/15 Mask Design Engineer Relationship Specialty Start Date End Date Brandon Monet DO [address] [place] [address] PCP - General Family Medicine 08/23/15 Mask Design Engineer Relationship Specialty Start Date End Date Brandon Monet DO [address] [place] [address] PCP - General Family Medicine 08/23/15 Mask Design Engineer Relationship Specialty Start Date End Date Brandon Monet DO [address] [place] [address] PCP - General Family Medicine 08/23/15 Mask Design Engineer Relationship Specialty Start Date End Date Brandon Monet DO [address] [place] [address] PCP - General Family Medicine 08/23/15 Mask Design Engineer Relationship Specialty Start Date End Date Brandon Monet DO [address] [place] [address] PCP - General Family Medicine 08/23/15 Mask Design Engineer Relationship Specialty Start Date End Date Brandon Monet DO [address] [place] [address] PCP - General Family Medicine 08/23/15 Mask Design Engineer Relationship Specialty Start Date End Date Brandon Monet DO [address] [place] [address] PCP - General Family Medicine 08/23/15 Mask Design Engineer Relationship Specialty Start Date End Date Brandon Monet, [address] [place] [address] PCP - General Family Medicine 08/23/15 Mask Design Engineer Relationship Specialty Start Date End Date Brandon Monet DO [address] [place] [address] PCP - General Family Medicine 08/23/15 Mask Design Engineer Relationship Specialty Start Date End Date Brandon Monet DO [address] [place] [address] PCP - General Family Medicine 08/23/15 Mask Design Engineer Relationship Specialty Start Date End Date Brandon Monet DO [address] [place] [address] PCP - General Family Medicine 08/23/15 Mask Design Engineer Relationship Specialty Start Date End Date Brandon Monet DO [address] [place] [address] PCP - General Family Medicine 08/23/15 Mask Design Engineer Relationship Specialty Start Date End Date Brandon Monet DO [address] [place] [address] PCP - General Family Medicine 08/23/15 Iza Simms, FEED RESEARCH AIDE.SCREEN PRINTER HELPER [address] [place] [address] [facility] 06/27/24 Ivory Espinoza, FEED RESEARCH AIDE.SCREEN PRINTER HELPER [address] [place] [address] [facility] 06/27/24 Mask Design Engineer Relationship Specialty Start Date End Date Brandon Monet DO [address] [place] [address] PCP - General Family Medicine 08/23/15 Iza Simms, FEED RESEARCH AIDE.SCREEN PRINTER HELPER [address] [place] [address] [facility], FEED RESEARCH AIDE.SCREEN PRINTER HELPER [address] [place] [address] [facility] 06/27/24 Mask Design Engineer Relationship Specialty Start Date End Date Brandon Monet DO [address] [place] [address] PCP - General Family Medicine 08/23/15 Iza Simms, FEED RESEARCH AIDE.SCREEN PRINTER HELPER [address] [place] [address] [facility] 06/27/24 Ivory Espinoza, FEED RESEARCH AIDE.SCREEN PRINTER HELPER [address] [place] [address] [facility] 06/27/24 Mask Design Engineer Relationship Specialty Start Date End Date Brandon Monet DO [address] [place] [address] PCP - General Family Medicine 08/23/15 Iza Simms, FEED RESEARCH AIDE.SCREEN PRINTER HELPER [address] [place] [address] [facility] 06/27/24 Meenakshi Espinozaekah, FEED RESEARCH AIDE.SCREEN PRINTER HELPER [address] [place] [address] [facility] Mask Design Engineer Relationship Specialty Start Date End Date Brandon Monet DO [address] [place] [address] PCP - General Family Medicine 08/23/15 Iza Simms, FEED RESEARCH AIDE.SCREEN PRINTER HELPER [address] [place] [address] [facility] 06/27/24 [facility], FEED RESEARCH AIDE.SCREEN PRINTER HELPER [address] [place] [address] [facility] 06/[facility] Mask Design Engineer Relationship Specialty Start Date End Date Brandon Monet DO [address] [place] [address] PCP - General Family Medicine 08/23/15 Iza Simms, FEED RESEARCH AIDE.SCREEN PRINTER HELPER [address] [place] [address] [facility] 06/27/24 [facility], FEED RESEARCH AIDE.SCREEN PRINTER HELPER [address] [place] [address] [facility] 06/27/24 Mask Design Engineer Relationship Specialty Start Date End Date Brandon Monet DO [address] [place] [address] PCP - General Family Medicine 08/23/15 Iza Simms, FEED RESEARCH AIDE.SCREEN PRINTER HELPER [address] [place] [address] [facility] 06/27/24 Ivory Espinoza APRN.SCREEN PRINTER HELPER [address] [place] [address] Well Puller [facility] 06/27/24 Mask Design Engineer Relationship Specialty Start Date End Date Brandon Monet DO [address] [place] [address] PCP - General Family Medicine 08/23/15 Iza Simms, FEED RESEARCH AIDE.SCREEN PRINTER HELPER [address] [place] [address] Well Pull[facility] 06/27/24 Ivory Espinoza, FEED RESEARCH AIDE.SCREEN PRINTER HELPER [address] [place] [address] [facility] 06/[facility]/24 Mask Design Engineer Relationship Specialty Start Date End Date Brandon Monet DO [address] [place] [address] PCP - General Family Medicine 08/23/15 Iza Simms, FEED RESEARCH AIDE.SCREEN PRINTER HELPER [address] [place] [address] [facility] 06/27/24 Ivory Espinoza, FEED RESEARCH AIDE.SCREEN PRINTER HELPER [address] [place] [address] [facility] 06/27/24 Mask Design Engineer Relationship Specialty Start Date End Date Brandon Monet DO [address] [place] [address] PCP - General Family Medicine 08/23/15 Iza Simms, FEED RESEARCH AIDE.SCREEN PRINTER HELPER [address] [place] [address] [facility] 06/27/24 AlexisIvory, FEED RESEARCH AIDE.SCREEN PRINTER HELPER [address] [place] [address] [facility] 06/27/24 Mask Design Engineer Relationship Specialty Start Date End Date Brandon Monet DO [address] [place] [address] PCP - General Family Medicine 08/23/15 Ivory Espinoza, FEED RESEARCH AIDE.SCREEN PRINTER HELPER [address] [place] [address] [facility] 06/27/24 Mask Design Engineer Relationship Specialty Start Date End Date Brandon Monet DO [address] [place] [address] PCP - General Family Medicine 08/23/15 Ivory Espinoza, FEED RESEARCH AIDE.SCREEN PRINTER HELPER [address] [place] [address] [facility] 06/27/24 Mask Design Engineer Relationship Specialty Start Date End Date Brandon Monet DO [address] [place] [address] PCP - General Family Medicine 08/23/15 Ivory Espinoza, FEED RESEARCH AIDE.SCREEN PRINTER HELPER [address] [place] [address] [facility] 06/27/24 Mask Design Engineer Relationship Specialty Start Date End Date Brandon Monet DO [address] [place] [address] PCP - General [facility] 08/23/15 AlexisIvory, FEED RESEARCH AIDE.SCREEN PRINTER HELPER [address] [place] [address] [facility] 06/27/24 Mask Design Engineer Relationship Specialty Start Date End Date Brandon Monet DO [address] [place] [address] PCP - [facility] 08/23/15 AlexisIvory, FEED RESEARCH AIDE.SCREEN PRINTER HELPER [address] [place] [address] [facility]24 Team Status: Active Member Role Status Dates Dr. Brandon Monet , DO Primary Care Provider Active Team Status: Inactive Member Role Status Dates Dr. Brandon Monet , DO Primary Care Provider Active Start: August 07, 2024 End: August 07, 2024 Dr. Karl العراقي , DO Attending Provider Activ e Start: August 07, 2024 End: August 07, 2024 Dr. Karl العراقي , DO Emergency Provider Activ e Start: August 07, 2024 End: August 07, 2024 Team Status: Active Member Role Status Dates Dr. Brandon Monet , DO Primary Care Provider Active Start: October 08, 2024 Dr. Iftikhar Mendoza , DO Emergency Provider Active S tart: October 08, 2024 Dr. Jonathan Brasher , DO Admit Provider Active Start: October 08, 2024 Dr. Jonathan Brasher , DO Attending Provider Active Start: October 08, 2024 Team Status: Inactive Member Role Status Dates Dr. Brandon Monet , DO Primary Care Provider Active Start: October 08, 2024 End: October 09, 2024 Dr. Iftikhar Mendoza , Emergency Provider Active S tart: October 08, 2024 End: October 09, 2024 Dr. Jonathan Brasher , Admit Provider Active Start: October 08, 2024 End: October 09, 2024 Dr. Jonathan Brasher , Other Provider Active Start: October 08, 2024 End: October 09, 2024 Dr. Mitchell Tobias MD Attending Provider Active Start: October 08, 2024 End: October 09, 2024 Mask Design Engineer Relationship Specialty Start Date End Date Brandon Monet DO [address] [place] [address] PCP - General Family Medicine 08/23/15 AlexisIvory, FEED RESEARCH AIDE.SCREEN PRINTER HELPER [address] [place] [address] [facility] 06/27/24 Mask Design Engineer Relationship Specialty Start Date End Date Brandon Monet DO [address] [place] [address] PCP - General Family Medicine 08/23/15 Iza Simms, FEED RESEARCH AIDE.SCREEN PRINTER HELPER [address] [place] [address] [facility] 06/27/24 10/08/24 AlexisIvory, FEED RESEARCH AIDE.SCREEN PRINTER HELPER [address] [place] [address] [facility] 06/27/24 Mask Design Engineer Relationship Specialty Start Date End Date Brandon Monet DO [address] [place] [address] PCP - General Family Medicine 08/23/15 Ivory Espinoza, FEED RESEARCH AIDE.SCREEN PRINTER HELPER [address] [place] [address] [facility] 06/27/24 Mask Design Engineer Relationship Specialty Start Date End Date Brandon Monet DO [address] [place] [address] PCP - General Family Medicine 08/23/15 Iza Simms, FEED RESEARCH AIDE.SCREEN PRINTER HELPER [address] [place] [address] [facility] 06/27/24 10/08/24 Ivory Espinoza, FEED RESEARCH AIDE.SCREEN PRINTER HELPER [address] [place] [address] [facility] 06/27/24 Mask Design Engineer Relationship Specialty Start Date End Date Brandon Mnoet DO [address] [place] [address] PCP - General Family Medicine 08/23/15 Ivory Espinoza, FEED RESEARCH AIDE.SCREEN PRINTER HELPER [address] [place] [address] [facility] 06/27/24 Mask Design Engineer Relationship Specialty Start Date End Date Brandon Monet DO [address] [place] [address] PCP - General Family Medicine 08/23/15 Ivory Espinoza, FEED RESEARCH AIDE.SCREEN PRINTER HELPER [address] [place] [address] [facility] 06/27/24 Janeth Fraire, FEED RESEARCH AIDE.SCREEN PRINTER HELPER [address] [place] [address] [facility] 01/03/25 Mask Design Engineer Relationship Specialty Start Date End Date Brandon Monet DO [address] [place] [address] PCP - General Family Medicine 08/23/15 AlexisIvory, FEED RESEARCH AIDE.SCREEN PRINTER HELPER [address] [place] [address] [facility] 06/27/24 Janeth Fraire, FEED RESEARCH AIDE.SCREEN PRINTER HELPER [address] [place] [address] [facility] 01/03/25 Mask Design Engineer Relationship Specialty Start Date End Date Brandon Monet DO [address] [place] [address] PCP - General Family Medicine 08/23/15 AlexisIvory, FEED RESEARCH AIDE.SCREEN PRINTER HELPER [address] [place] [address] [facility] 06/27/24 Janeth Fraire, FEED RESEARCH AIDE.SCREEN PRINTER HELPER [address] [place] [address] [facility] 01/03/25 Mask Design Engineer Relationship Specialty Start Date End Date Brandon Monet DO [address] [place] [address] PCP - General Family Medicine 08/23/15 AlexisIvory, FEED RESEARCH AIDE.SCREEN PRINTER HELPER [address] [place] [address] [facility] 06/27/24 Janeth Fraire APRN.[facility] [address] [place], [place] [id number] [facility] 01/03/25 INFORMATION SOURCE (unrecogn ized section and content) DATE CREATED AUTHOR 09/05/2022 [facility] DATE CREATED AUTHOR AUTHOR'S ORGANIZ ATION 08/30/2024 [facility] DATE CREATED AUTHOR AUTHOR'S ORGANIZ ATION 02/05/2025 [facility] DATE CREATED AUTHOR AUTHOR'S ORGANIZ ATION 03/25/2025 [facility] DATE CREATED AUTHOR AUTHOR'S ORGANIZ ATION 04/09/2025 [facility] FOR RECORDS PERTAINING TO PATIENTS WHO ARE OR HAVE BEEN ENROLLED IN A CHEMICAL DEPENDENCY/SUBSTANCEABUSE PROGRAM, SOME INFORMATION MAY BE OMITTED. This clinical summary was aggregated from multiple sources. Caution should be exercised in using it in the provision of clinical care. This summary normalizes information from multiple sources, and as a consequence, information in this document may materially change the coding, format and clinical context of patient data. In addition, data may be omitted in some cases. CLINICAL DECISIONS SHOULD BE BASED ON THE PRIMARY CLINICAL RECORDS. [employer] provides no warranty or guarantee of the accuracy or completeness of information in this document.
--- OUTSIDE RECORDS SUMMARY | 2025-04-14 17:26 | XMS RPT_ITS | CCD ---
Author Organization [facility] Inform ion Partnership [facility] Care Team Providers Care Physiognomist Name Role Phone Brandon Monet DO Primary Care Provider TREE DOUGHERTY Referring Unavailable BRANDON MONET Primary Care Unavailable TREE DOUGHERTY Attending Unavailable TREE DOUGHERTY Admitting Unavailable BRANDON MONET Primary Care Unavailable Brandon Monet DO Primary Care Provider Brandon Monet DO Primary Care Provider Simms CYBERATHLETE.Iza COELHO Unavailable [facility] CYBERATHLETE.Ivory COELHO Unavailable IZA SIMMS Referring Unavailabl e BRANDON MONET Primary Care Unavailable Dr. Brandon Monet DO Primary Care Provider Dr. Karl العراقي DO Attending Provider Dr. Karl العراقي DO Emergency Provider Dr. Iftikhar Mendoza DO Emergency Provider Dr. Jonathan Brasher DO Admit Provider Dr. Jonathan Brasher DO Attending Provider Dr. Jonathan Brasher DO Other Provider Jatinder PECK, Dr. Mitchell Montano Attending Provider Mendez CYBERATHLETE.Iza COELHO Unavailable Yee CYBERATHLETE.Janeth COELHO Unavailable MONET, BRANDON L Primary Care Unavailable COLLINS CHOLES, LADARIUS Referring Unavailabl e MONET, BRANDON L Primary Care Unavailable COLLINS CHOLES, LADARIUS Referring Unavailabl e MONET, BRANDON L Primary Care Unavailable IZA SIMMS Attending Unavailabl e MONET, BRANDON L Primary Care Unavailable IZA SIMMS Referring Unavailabl e COLLINS CHOLES, LADARIUS Referring Unavailabl e MONET, [...] Lisinopril; Translations: [LISINOPRIL] Drug Allergy 06-02-2024 Cough [facility] (20 sources) amLODIPine; Translations: [AMLODIPINE] Drug Allergy 07-29-2024 Intolerance [facility] (16 sources) Chlorthalidone; Translations: [CHLORTHALIDONE] Drug Allergy 10-12-2024 Intolerance [facility] (1 source) amLODIPine Drug Allergy 10-08-2024 [facility] Repository (1 source) Lisinopril Drug Allergy 10-08-2024 [facility] Medications Current Medications Medication Drug Class(es) [...] on above: TAKE 1 CAPSULE BY MO [facility] EVERY DAY Take 1 capsule by mo [facility] once daily. hypromellose 17 mg/ml ophthalmic solution [...] Active Start: 08-01-2023 take 1 tablet by [facility] once daily multivitamin tablet Take 1 [...] Test Name Value Interpretation Reference Range Facility [facility] 03-23-2025 [facility] Telephone (Shopp[employer] Elements) ISA TOVAR ([id number]) 1970 F Date Time Provider Department 03/23/25 COLLINSNIKOLAY JONESLADARIUS During your visit today, we recorded the following information about you: Chica Toribio RN 03/23/2025 11:16 AM Signed Prior Auth sent via TuneIn Twitter Dashboard. ISA TOVAR (Cano: [id number]) [facility] is processing your PA request and will respond shortly with next steps. You are currently using the fastest method to process this prior authorization. Please do not fax or call [facility] to resubmit this request. To check for an update later, open this request again from your dashboard. Chica Toribio RN 03/23/2025 11:59 AM Signed ISA TOVAR (Cano: [id number]) Rx #: [id number] Need Help? Call us at Status Sent to Plan today Drug Spironolactone 25MG tablets Form [employer] Electronic PA Form (2016 CTPD) Original Claim Info 19,76 MAXIMUM DAYS SUPPLY OF 30TRANSMISSION FEE UP TO $0.32 MAY APPLY(PHARMACY HELP DESK ) For [employer] Coupon [place] of: $58.32 submit to BIN: [id number] PCN: FANG Group: COUPON --Service provided at no cost and no switch fee to the pharmacy-- Allergies As of Date: 03/23/2025 Noted Allergy Reaction CHLORTHALIDONE 10/12/2024 5 - Intolerance Comments: Hyponatremia and hypokalemia. AMLODIPINE 07/29/2024 5 - Intolerance Comments: Pedal edema LISINOPRIL 06/02/2024 3 - Cough Date Reviewed: 01/26/2025 Reviewed by: Ladarius Arenas MD - Fully Assessed Reason for Visit: Insurance Authorization [[id number]] Cmt: PRIOR AUTH SPIRONOLATONE 25 MG Prescriptions [...] by mouth at bedtime as needed. - Qniztac-Jdrxgbrqn-Hvfp tab Take by mouth. Problem List As Of Date 03/23/2025 Noted Resolved Dysthymia [F34.1] 08/23/2015 Well adult exam [Z00.00] 08/23/2015 Acid reflux [K21.9] 08/20/2022 Resistant hypertension [I1A.0] 10/06/2024 Encounter Status:Closed by CHICA TORIBIO on 03/23/25 [facility] ACTH [facility] 01-27-2025 Corticotropin (P) [Mass/Vol] 21.6 pg/mL Normal 7.2-63.3 [facility] Comment on above: Order Comment: Speci men Type: URINE SPECIMEN Ordering Facility: [facility] [place] Address: [address] [place] [address] Result Comment: ACTH Reference Range: 7-10 am: 7.2 - 63.3 pg/mL Performed By: #### 3 5677-4, 62229-5, 33711-9 #### [facility] CLIA [id number] [address] [place] [address] [place] ALDOSTERONE/DIRECT RENIN RAT IOon 01-27-2025 [place] RENIN RATIO 0.5 Normal <3.8 [facility] Comment on above: Order Comment: Speci men Type: URINE SPECIMEN Ordering Facility: [facility] [place] Address: [address] [place] [address] Result Comment: A ra tamie of aldosterone in ng/dL to direct renin in pg/mL greater than or equal to 3.8 is a positive screening test result for primary aldosteronism, when aldosterone is greater than or equal to 15 ng/dL. Performed By: #### 3 5677-4, 21649-3, 80102-1 #### [facility] CLIA [id number] [address] [place] [address] [place] Aldosterone [Mass/Vol] 6.2 ng/dL Normal 0.0-<35.4 [facility] Comment on above: Order Comment: Speci men Type: URINE SPECIMEN Ordering Facility: [facility] [place] Address: [address] [place] [address] Result Comment: The reference interval for serum/plasma [...] 15 ng/dL. Performed By: #### 3 5677-4, 24646-4, 91596-0 #### [facility] CLIA [id number] [address] [place] [address] [place] DIRECT RENIN 12.8 pg/mL Normal 3.6-81.6 [facility] Comment on above: Order Comment: Speci men Type: URINE SPECIMEN Ordering Facility: [facility] [place] Address: [address] [place] [address] Result Comment: The reference interval for direct [...] 15 ng/dL. Performed By: #### 3 5677-4, 12498-6, 88504-0 #### [facility] CLIA [id number] [address] [place] [address] [place] PATIENT UPRIGHT OR SUPINE Upright Normal [facility] Comment on above: Order Comment: Speci men Type: URINE SPECIMEN Ordering Facility: [facility] [place] Address: [address] [place] [address] Performed By: #### 3 5677-4, 22346-6, 79625-2 #### [facility] CLIA [id number] [address] [place] [address] [place] CATECHOLAMINES FRAon 07-10-2 025 CATECHOLAMINE INTERPRETATION PLASMA See Note Normal [facility] Comment on above: Order Comment: Speci men Type: URINE SPECIMEN Ordering Facility: [facility] [place] Address: [address] [place] [address] Result Comment: INTE RPRETIVE INFORMATION: Catecholamines Panel, [...] reference intervals for this test in the [employer] Laboratory Test Directory (Micro[employer]). This test was developed and its performance characteristics determined by [facility]. It has not been cleared or approved by the US Food and Drug Administration. This test was performed in a CLIA certified laboratory and is intended for clinical purposes. Performed By: [facility] [address] [place] [address] Lab[employer] Cheesemaking: Angel Potter MD, PhD CLIA Number: [id number] Performed By: #### 3 5677-4, 37524-0, 22254-7 #### [facility] CLIA [id number] [address] [place] [address] [place] DOPAMINE 163 pmol/L Normal <=240 [facility] Comment on above: Order Comment: Speci men Type: URINE SPECIMEN Ordering Facility: [facility] [place] Address: [address] [place] [address] Result Comment: INTE RPRETIVE INFORMATION: Dopamine Seated (15 min) less than or equal to 240 pmol/L Supine (30 min) less than or equal to 240 pmol/L Performed By: #### 3 5677-4, 46273-5, 71834-4 #### [facility] CLIA [id number] [address] [place] [address] [place] EPINEPHRINE (P) 153 pmol/L Normal <=330 [facility] Comment on above: Order Comment: Speci men Type: URINE SPECIMEN Ordering Facility: [facility] [place] Address: [address] [place] [address] Result Comment: INTE RPRETIVE INFORMATION:Epinephrine Seated (15 min) less than or equal to 330 pmol/L Supine (30 min) less than or equal to 265 pmol/L Performed By: #### 3 5677-4, 19639-6, 50378-0 #### [facility] CLIA [id number] [address] [place] [address] [place] NOREPINEPHRINE 4161 pmol/L Normal 0085-5522 [facility] Comment on above: Order Comment: Speci men Type: URINE SPECIMEN Ordering Facility: [facility] [place] Address: [address] [place] [address] Result Comment: INTE RPRETIVE INFORMATION: Norepinephrine Seated (15 min) 1050 - 4800 pmol/L Supine (30 min) 680 - 3100 pmol/L Performed By: #### 3 5677-4, 33093-8, 86301-1 #### [facility] CLIA [id number] [address] [place] [address] [place] CORTISOL, FREEon 01-27-2025 FREE CORTISOL, SERUM 0.38 ug/dL Normal [facility] Comment on above: Order Comment: Speci men Type: BLOOD SPECIMENOrdering Facility: [facility] [place] Address: [address] [place] [address] Result Comment: 18 y ears of age and older: 8-10 a.m. collection: 0.21-1.04 ug/dL 4-6 p.m. collection: 0.10-0.63 ug/dL INTERPRETIVE INFORMATION: Cortisol, Free by Equ[facility] Dialysis/LC-MS/MS This test was developed and its performance characteristics determined by [facility]. It has not been cleared or approved by the US Food and Drug Administration. This test was performed in a CLIA certified laboratory and is intended for clinical purposes. Performed By: [facility] [employer] [address] [place] [address] Laborer Cheesemaking: Angel Potter MD, PhD CLIA Number: [id number] Performed By: #### F RCORT ####[facility] [id number] [place] [address] METANEPHRINES, FREE PLASMAon 01-27-2025 METANEPHRINE, PLASMA 46 pg/mL Normal 12-67 [facility] Comment on above: Order Comment: Speci galileo Type: BLOOD SPECIMENOrdering Facility: [facility] [place] Address: [address] [place] [address] Result Comment: Refe rence Ranges: Hypertensive adult > or = 18 yrs old: 12-72 pg/mL Normotensive adult > or = 18 yrs old: 12-67 pg/mL Normotensive children < 18 yrs old: 10-95 pg/mL Performed By: #### P METAN ####[facility] [id number] [address] [place] NORMETANEPHRINE, PLASMA 106 pg/mL High 18-101 [facility] Comment on above: Order Comment: Speci men Type: BLOOD SPECIMENOrdering Facility: [facility] [place] Address: [address] [place] [address] Result Comment: Refe rence Ranges: Hypertensive adult > or = 18 yrs old: 24-145 pg/mL Normotensive adult > or = 18 yrs old: 18-101 pg/mL Normotensive children < 18 yrs old: 22-83 pg/mL Methyldopa may cause false elevation of normetanephrine levels in this assay. If patient is on methyldopa, interpret results with caution. Performed By: #### P METAN ####[facility] [id number] [address] [facility] ISA [facility] ([id number]) 1970 F Date Time Provider Department 01/25/25 LADARIUS ARENAS During your visit today, we recorded the following information about you: Allergies As of Date: 01/25/2025 Noted Allergy Reaction CHLORTHALIDONE 10/12/2024 5 - Intolerance Comments: Hyponatremia and hypokalemia. AMLODIPINE 07/29/2024 5 - Intolerance Comments: Pedal edema LISINOPRIL 06/02/2024 3 - Cough Date Reviewed: 10/14/2024 Reviewed by: Iza Simms APRN.[facility] - Fully Assessed Reason for Visit: Appointment [...] by mouth at bedtime as needed. - Arldqxv-Rurcxohij-Evyx tab Take by mouth. Problem List As Of Date 01/25/2025 Noted Resolved Dysthymia [F34.1] 08/23/2015 Well adult exam [Z00.00] 08/23/2015 Acid reflux [K21.9] 08/20/2022 Resistant hypertension [I1A.0] 10/06/2024 Encounter Status:Closed by CHICA TORIBIO on 01/25/25 Normal [facility] Chloride ?Tm Ur-sCncon 10-27 Chloride Unsp time (U) [Moles/Vol] 25 mmol/L Normal 16-250 [facility] Comment on above: Order Comment: Speci men Type: URINE SPECIMEN Ordering Facility: [facility] [place] Address: [address] [place] [address] Performed By: #### 3 5677-4, 01915-0, 57489-8 #### [facility] CLIA [id number] [address] [place] [address] [place] Osmolality Uron 10-27-2024 Osmolality (U) [Osmolality] 150 mosm/kg Normal 50-1200 [facility] Comment on above: Order Comment: Speci men Type: URINE SPECIMEN Ordering Facility: [facility] [place] Address: [address] [place] [address] Performed By: #### 3 5677-4, 00032-7, 77823-2 #### [facility] CLIA [id number] [address] [place] [address] [place] Potassium ?Tm Ur-sCncon - Potassium Unsp time (U) [Moles/Vol] 32.4 mmol/L Normal 10.0-160.0 [facility] Comment on above: Order Comment: Speci men Type: URINE SPECIMEN Ordering Facility: [facility] [place] Address: [address] [place] [address] Performed By: #### 3 5677-4, 66136-1, 37057-4 #### [facility] CLIA [id number] [address] [place], [place] [address] [place] Renal function 2000 panelon 10-27-2024 Albumin [Mass/Vol] 4.4 g/dL Normal 3.9-4.9 [facility] Comment on above: Order Comment: Speci men Type: URINE SPECIMEN Ordering Facility: [facility] [place] Address: [address] [place] [address] Performed By: #### 3 5677-4, 53968-2, 01700-0 #### [facility] CLIA [id number] [address] [place] [address] [place] Anion gap [Moles/Vol] 13 mmol/L Normal 8-15 [facility] Comment on above: Order Comment: Speci men Type: URINE SPECIMEN Ordering Facility: [facility] [place] Address: [address] [place] [address] Performed By: #### 3 5677-4, 76983-1, 97731-0 #### [facility] CLIA [id number] [address] [place], [place] [address] [place] Calcium [Mass/Vol] 10.1 mg/dL Normal 8.5-10.2 [facility] Comment on above: Order Comment: Speci men Type: URINE SPECIMEN Ordering Facility: [facility] [place] Address: [address] [place] [address] Performed By: #### 3 5677-4, 83785-3, 95324-0 #### [facility] CLIA [id number] [address] [place], [place] [address] [place] Chloride [Moles/Vol] 95 mmol/L Low 98-107 [facility] Comment on above: Order Comment: Speci men Type: URINE SPECIMEN Ordering Facility: [facility] [place] Address: [address] [place] [address] Performed By: #### 3 5677-4, 21494-6, 76293-1 #### [facility] CLIA [id number] [address] [place] [address] [place] CO2 [Moles/Vol] 21 mmol/L Low 22-30 [facility] Comment on above: Order Comment: Speci men Type: URINE SPECIMEN Ordering Facility: [facility] [place] Address: [address] [place] [address] Performed By: #### 3 5677-4, 99590-1, 64071-8 #### [facility] CLIA [id number] [address] [place] [address] [place] Creatinine [Mass/Vol] 0.70 mg/dL Normal 0.58-0.96 [facility] Comment on above: Order Comment: Speci men Type: URINE SPECIMEN Ordering Facility: [facility] [place] Address: [address] [place] [address] Performed By: #### 3 5677-4, 01821-8, 23218-7 #### [facility] [place] [id number] [address] [place] [address] [place] Creatinine and Glomerular filtration rate.predicted panel (S/P/Bld) 103 mL/min/1.73m??? Normal >=60 [facility] Comment on above: Order Comment: Speci men Type: URINE SPECIMEN Ordering Facility: [facility] [place] Address: [address] [place] [address] Result Comment: Matilde mated Glomerular Filtration Rate [...] actual GFR. Performed By: #### 3 5677-4, 40272-9, 26631-7 #### [facility] CLIA [id number] [address] [place], [place] [address] [place] Glucose [Mass/Vol] 86 mg/dL Normal 74-99 [facility] Comment on above: Order Comment: Speci men Type: URINE SPECIMEN Ordering Facility: [facility] [place] Address: [address] [place] [address] Result Comment: The [place] Diabetes Association (ADA) provides guidance for cutoff [...] Standards of Medical Care in Diabetes 2016, [place] Diabetes Association. Diabetes Care. 2016.39(Suppl 1). Performed By: #### 3 5677-4, 57440-3, 75219-5 #### [facility] CLIA [id number] [address] [place] [address] [place] Phosphate [Mass/Vol] 3.7 mg/dL Normal 2.7-4.8 [facility] Comment on above: Order Comment: Speci men Type: URINE SPECIMEN Ordering Facility: [facility] [place] Address: [address] [place] [address] Performed By: #### 3 5677-4, 37334-1, 78065-0 #### [facility] CLIA [id number] [address] [place] [address] [place] Potassium [Moles/Vol] 4.4 mmol/L Normal 3.7-5.1 [facility] Comment on above: Order Comment: Speci men Type: URINE SPECIMEN Ordering Facility: [facility] [place] Address: [address] [place] [address] Performed By: #### 3 5677-4, 86706-8, 24391-6 #### [facility] CLIA [id number] [address] [place] [address] [place] Sodium [Moles/Vol] 129 mmol/L Low 136-144 [facility] Comment on above: Order Comment: Speci men Type: URINE SPECIMEN Ordering Facility: [facility] [place] Address: [address] [place] [address] Performed By: #### 3 5677-4, 43992-5, 70351-5 #### [facility] CLIA [id number] [address] [place] [address] [place] Urea nitrogen [Mass/Vol] 8 mg/dL Normal 7-21 [facility] Comment on above: Order Comment: Speci men Type: URINE SPECIMEN Ordering Facility: [facility] [place] Address: [address] [place] [address] Performed By: #### 3 5677-4, 62057-1, 92782-8 #### [facility] CLIA [id number] [address] [place] [address] [place] Sodium ?Tm Ur-sCncon 025 Sodium Unsp time (U) [Moles/Vol] 26 mmol/L Normal 14-216 [facility] Comment on above: Order Comment: Speci men Type: URINE SPECIMEN Ordering Facility: [facility] [place] Address: [address] [place] [address] Performed By: #### 3 5677-4, 74625-1, 61535-6 #### [facility] CLIA [id number] [address] [place] [address] [place] EXERCISE STRESS ECG (WITHOUT IMAGING)on 10-18-2024 EXERCISE STRESS ECG (WITHOUT IMAGING) Stress ECG Report: Exercise Stress ECG (without Imaging) [facility] Date of service: 10/18/2024 4:59:10 PM BROADCAST TECHNICIAN Ordering physician: IZA SIMMS client specialist: Andree Thomas RN Interpreting physician: Ilia [...] 162/80 mmHg. The double product achieved was [address]92. Medications: Last Used SPIRONOLACTONE 10 Hours Resting [...] (HRR): 18 bpm Rate Pressure Product (RPP): 85903 Galeana Treadmill Score: 9.0 Stress Exercise Observations: [...] equation for determining estimated MET values for [facility] stress tests changed. Comparison of test results before and after that date may show a change in estimated MET values for peak/max exercise despite a test duration that is similar in length. The validity of the new FRIEND equation for exercise METS is endorsed by the [place] [employer]. Jody P, John LA, Santo R, Silvio J, Toya J. New Generalized Equation for Predicting Maximal Oxygen Uptake (from the Fitness Registry and the Importance of Exercise National Database). The [place] Journal of Cardiology. 2017;120(4):688-692). Final ------ Stress Take Away Man Report: Exercise Stress ECG (without Imaging) [facility] Date of service: 10/18/2024 4:59:10 PM BROADCAST TECHNICIAN Supervising physician: Ara Pruett MD PATIENT: Name: ISA TOVAR Age: 54 years Gender: F The supervising physician was in the department and immediately available. Final [facility] Image : [id number] (more content not included)... Normal [facility] Bacteria Ur Culton Bacteria identified Cx [...] , Intermediate >32 , Resistant >64 Abnormal [facility] Comment on above: Performed By: #### 6 30-4 ####[facility] [id number] [address] OF [facility] ALEJOOVon 10-14-2024 CNOV Office Visit (MOLINAPWS ) ISA TOVAR ([id number]) 1970 F Date Time Provider Department 10/14/24 12:40 PM IZA SIMMS During your visit today, we recorded the following information about you: Pulse Blood pressure Weight 67/minute 124/78 68.8 kg Iza Simms APRN.REGISTER CLERK 10/14/2024 1:58 PM Signed 10/14/2024 The patient consented to the use of [employer] software for draft documentation of the visit consistent with [facility]?s Notice of Privacy Practices. Isa is a [...] due to low sodium and potassium levels. Cell Biology Scientist sent her to ER after getting lab work results. - Recent medication adjustments by nephrology included increasing chlorthalidone to 50 mg, which led to electrolyte imbalances. - Cell Biology Scientist advised discontinuing chlorthalidone and initiated spironolactone. - [...] tablet by mouth at bedtime as needed. Mudjokm-Ailwigaiv-Kciy tab Take by mouth. No current facility-administered [...] spironolactone. - Refill for losartan sent to [facility] for a 90-day supply. - Advised to [...] evaluation. 6 (more content not included)... Normal [facility] UA DIP, URINE (POC)on 2024 BILIRUBIN UA (POCT) Negative Negative [facility] CLARITY UA (POCT) Clear [facility] COLOR UA (POCT) Yellow [facility] GLUCOSE UA (POCT) Negative Negative mg/dL [facility] Hemoglobin Ql (U) Small Abnormal Negative [facility] Interpretation and review of laboratory results Abnormal [facility] KETONE UA (POCT) Negative Negative mg/dL [facility] LEUKOCYTES UA (POCT) Trace Abnormal Negative [facility] NITRITE UA (POCT) Negative Negative [facility] PH UA (POCT) 7.5 4.5 - 8.0 [facility] Protein Ql (U) Negative Negative mg/dL [facility] SPECIFIC GRAVITY UA (POCT) 1.015 1.005 - 1.030 [facility] UROBILINOGEN UA (POCT) 0.2 Sil l E.U./dL [facility] Location:[address], [place], [place], [address] [place] [address] POINT OF CARE [facility] ALDOSTERONE/DIRECT RENIN RAT IOon 10-13-2024 [place] RENIN RATIO 3.5 Normal <3.8 [facility] Comment on above: Order Comment: Speci men Type: BLOOD SPECIMENOrdering Facility: [facility] [place] Address: [address] [place] [address] Result Comment: A ra tamie of aldosterone in ng/dL to direct renin in pg/mL greater than or equal to 3.8 is a positive screening test result for primary aldosteronism, when aldosterone is greater than or equal to 15 ng/dL. Performed By: #### A LDREN ####[facility] LABCLIA [id number] [place] [address] [place] Aldosterone [Mass/Vol] 15.6 ng/dL Normal 0.0-<35.4 [facility] Comment on above: Order Comment: Howard gurrola Type: BLOOD SPECIMENOrdering Facility: [facility] [place] Address: [address] [place] [address] Result Comment: The reference interval for serum/plasma [...] 15 ng/dL. Performed By: #### A LDREN ####[facility] LABCLIA [id number] [place] [address] [place] DIRECT RENIN 4.5 pg/mL Normal 3.6-81.6 [facility] Comment on above: Order Comment: Speci men Type: BLOOD SPECIMENOrdering Facility: [facility] [place] Address: [address] [place] [address] Result Comment: The reference interval for direct [...] 15 ng/dL. Performed By: #### A LDREN ####[facility] LABCLIA [id number] [place] [address] [place] PATIENT UPRIGHT OR SUPINE Upright Normal [facility] Comment on above: Order Comment: Riveri men Type: BLOOD SPECIMENOrdering Facility: [facility] [place] Address: [address] [place] [address] Performed By: #### A LDREN ####[facility] LABCLIA [id number] [place] [address] [place] Renal function 2000 panelon 10-13-2024 Albumin [Mass/Vol] 4.2 g/dL Normal 3.9-4.9 [facility] Comment on above: Order Comment: Speci men Type: BLOOD SPECIMENOrdering Facility: [facility] [place] Address: [address] [place] [address] Performed By: #### 2 4362-6 ####[facility] LABCLIA [id number] [address] [address] [place] Anion gap [Moles/Vol] 12 mmol/L Normal 8-15 [facility] Comment on above: Order Comment: Speci men Type: BLOOD SPECIMENOrdering Facility: [facility] [place] Address: [address] [place] [address] Performed By: #### 2 4362-6 ####[facility] LABCLIA [id number] [facility] [place] [id number] [place] Calcium [Mass/Vol] 9.9 mg/dL Normal 8.5-10.2 [facility] Comment on above: Order Comment: Speci men Type: BLOOD SPECIMENOrdering Facility: [facility] [place] Address: [address] [place] [address] Performed By: #### 2 4362-6 ####[facility] LABCLIA [id number] [place] [id number] [place] Chloride [Moles/Vol] 92 mmol/L Low 98-107 [facility] Comment on above: Order Comment: Speci men Type: BLOOD SPECIMENOrdering Facility: [facility] [place] Address: [address] [place], [place] [address] Performed By: #### 2 4362-6 ####[facility] LABCLIA [id number] [facility] [place] [id number] [place] CO2 [Moles/Vol] 22 mmol/L Normal 22-30 [facility] Comment on above: Order Comment: Speci men Type: BLOOD SPECIMENOrdering Facility: [facility] [place] Address: [address] [place] [address] Performed By: #### 2 4362-6 ####[facility] LABCLIA [id number] [place] [id number] [place] Creatinine [Mass/Vol] 0.68 mg/dL Normal 0.58-0.96 [facility] Comment on above: Order Comment: Speci men Type: BLOOD SPECIMENOrdering Facility: [facility] [place] Address: [address] [place] [address] Performed By: #### 2 4362-6 ####[facility] LABIA [id number] [place] [address] [place] Creatinine and Glomerular filtration rate.predicted panel (S/P/Bld) 104 mL/min/1.73m??? Normal >=60 [facility] Comment on above: Order Comment: Howard gurrola Type: BLOOD SPECIMENOrdering Facility: [facility] [place] Address: [address] [place] [address] Result Comment: Matilde mated Glomerular Filtration Rate [...] actual GFR. Performed By: #### 2 4362-6 ####[facility] LABIA [id number] [place] [address] [place] Glucose [Mass/Vol] 78 mg/dL Normal 74-99 [facility] Comment on above: Order Comment: Howard gurrola Type: BLOOD SPECIMENOrdering Facility: [facility] [place] Address: [address] [place] [address] Result Comment: The [place] [employer] (ADA) provides guidance for cutoff [...] Standards of Medical Care in Diabetes 2016, [place] [employer]. Diabetes Care. 2016.39(Suppl 1). Performed By: #### 2 4362-6 ####[facility] LABCLIA [id number] [address] [place] [address] [place] Phosphate [Mass/Vol] 3.5 mg/dL Normal 2.7-4.8 [facility] Comment on above: Order Comment: Speci men Type: BLOOD SPECIMENOrdering Facility: [facility] [place] Address: [address] [place], [place] [address] Performed By: #### 2 4362-6 ####[facility] LABCLIA [id number] [address] [place] [address] [place] Potassium [Moles/Vol] 4.5 mmol/L Normal 3.7-5.1 [facility] Comment on above: Order Comment: Speci men Type: BLOOD SPECIMENOrdering Facility: [facility] [place] Address: [address] [place] [address] Performed By: #### 2 4362-6 ####[facility] LABIA [id number] [address] [place] [address] [place] Sodium [Moles/Vol] 126 mmol/L Low 136-144 [facility] Comment on above: Order Comment: Speci men Type: BLOOD SPECIMENOrdering Facility: [facility] [place] Address: [address] [place], [place] [address] Performed By: #### 2 4362-6 ####[facility] LABIA [id number] [address] [address] [place] Urea nitrogen [Mass/Vol] 10 mg/dL Normal 7-21 [facility] Comment on above: Order Comment: Speci men Type: BLOOD SPECIMENOrdering Facility: [facility] [place] Address: [address] [place], [place] [address] Performed By: #### 2 4362-6 ####[facility] LABCLIA [id number] [address] [place] [address] [place] Anion gap in Serum or Plasma Ordered By: Jonathan Brasher on 03-22-2025 Anion gap [Moles/Vol] 12 mmol/L - [facility] BUN/creatinine ratioOrdered By: Jonathan Brasher on 10-09-2024 Urea nitrogen/Creatinine [Mass ratio] 13.0 mg/mg 05-09 [facility] Basic Metabolic Profile (BMP )on 10-09-2024 BUN/CRE 13.0 RATIO Normal 05-09 [facility] Comment on above: Performed By: #### L 100.0100, L500.2500, L501.5200 #### [facility] [address] [place], [address] Calcium [Mass/Vol] 9.1 mg/dL Normal 7.6-11.0 [facility] Comment on above: Performed By: #### L 100.0100, L500.2500, L501.5200 #### [facility] [address] [place], [address] Chloride [Moles/Vol] 92 mmol/L Low 98-108 [facility] Comment on above: Performed By: #### L 100.0100, L500.2500, L501.5200 #### [facility] [address] [place], [address] CO2 [Moles/Vol] 21.1 mmol/L Normal 21.0-32.0 [facility] Comment on above: Performed By: #### L 100.0100, L500.2500, L501.5200 #### [facility] [address] [place], [address] Creatinine [Mass/Vol] 0.62 mg/dL Low 0.70-1.20 [facility] Comment on above: Performed By: #### L 100.0100, L500.2500, L501.5200 #### [facility] [address] [place], [address] ECRCL 100.87 ml/min Normal 50-250 [facility] Comment on above: Performed By: #### L 100.0100, L500.2500, L501.5200 #### [facility] [address] [place], [address] GAP 12 Normal 5-15 [facility] Comment on above: Performed By: #### L 100.0100, L500.2500, L501.5200 #### [facility] [address] [place], [address] GFR/1.73 sq M.predicted among non-blacks MDRD (S/P/Bld) [Vol rate/Area] 106 mL/min/{1.73_m2} Normal >60 [facility] Comment on above: Result Comment: mL/m in/1.73m2 CKD-EPI Creatinine Equation (2020) Performed By: #### L 100.0100, L500.2500, L501.5200 #### [facility] [address] [place], [address] Glucose [Mass/Vol] 97 mg/dL Normal 70-99 [facility] Comment on above: Performed By: #### L 100.0100, L500.2500, L501.5200 #### [facility] [address] [place], [address] Potassium [Moles/Vol] 3.3 mmol/L Normal 3.3-5.1 [facility] Comment on above: Performed By: #### L 100.0100, L500.2500, L501.5200 #### [facility] [address] [place], [address] Sodium [Moles/Vol] 125 mmol/L Low 133-145 [facility] Comment on above: Performed By: #### L 100.0100, L500.2500, L501.5200 #### [facility] [address] [place], [address] Urea nitrogen [Mass/Vol] 8 mg/dL Normal 4-19 [facility] Comment on above: Performed By: #### L 100.0100, L500.2500, L501.5200 #### [facility] [address] [place], [address] BUN/CRE 16.8 RATIO Normal 10-20 [facility] Comment on above: Performed By: #### L 500.2500 #### [facility] [address] [place], [address] Calcium [Mass/Vol] 9.0 mg/dL Normal 7.6-11.0 [facility] Comment on above: Performed By: #### L 500.2500 #### [facility] [address] [place], [address] Chloride [Moles/Vol] 90 mmol/L Low 98-108 [facility] Comment on above: Performed By: #### L 500.2500 #### [facility] [address] [place], [address] CO2 [Moles/Vol] 19.6 mmol/L Low 21.0-32.0 [facility] Comment on above: Performed By: #### L 500.2500 #### [facility] [address] [place], [address] Creatinine [Mass/Vol] 0.69 mg/dL Low 0.70-1.20 [facility] Comment on above: Performed By: #### L 500.2500 #### [facility] [address] [place], [address] ECRCL 90.64 ml/min Normal 50-250 [facility] Comment on above: Performed By: #### L 500.2500 #### [facility] [address] [place], [address] GAP 12 Normal 5-15 [facility] Comment on above: Performed By: #### L 500.2500 #### [facility] [address] [place], [address] GFR/1.73 sq M.predicted among non-blacks MDRD (S/P/Bld) [Vol rate/Area] 103 mL/min/{1.73_m2} Normal >60 [facility] Comment on above: Result Comment: mL/m in/1.73m2 CKD-EPI Creatinine Equation (2020) Performed By: #### L 500.2500 #### [facility] [address] [place], [address] Glucose [Mass/Vol] 105 mg/dL High 70-99 [facility] Comment on above: Performed By: #### L 500.2500 #### [facility] [address] [place], [address] Potassium [Moles/Vol] 3.3 mmol/L Normal 3.3-5.1 [facility] Comment on above: Performed By: #### L 500.2500 #### [facility] [address] [place], [address] Sodium [Moles/Vol] 122 mmol/L Low 133-145 [facility] Comment on above: Performed By: #### L 500.2500 #### [facility] [address] [place], [address] Urea nitrogen [Mass/Vol] 12 mg/dL Normal 4-19 [facility] Comment on above: Performed By: #### L 500.2500 #### [facility] [address] [place], [address] CBC-Complete Blood Cnt No Di ffon 10-09-2024 Erythrocyte distribution width (RBC) [Ratio] 11.3 % Low 11.6-14.6 [facility] Comment on above: Performed By: #### L 100.0500 #### [facility] [address] [place], [address] Hematocrit (Bld) [Volume fraction] 30.2 % Low 37-47 [facility] Comment on above: Performed By: #### L 100.0500 #### [facility] [address] [place], [address] Hemoglobin (Bld) [Mass/Vol] 11.2 g/dL Low 12.0-15.0 [facility] Comment on above: Performed By: #### L 100.0500 #### [facility] [address] [place], [address] MCH (RBC) [Entitic mass] 32.7 pg High 27.0-32.0 [facility] Comment on above: Performed By: #### L 100.0500 #### [facility] [address] [place], [address] MCHC (RBC) [Mass/Vol] 37.1 g/dL High 32-36 [facility] Comment on above: Performed By: #### L 100.0500 #### [facility] [address] [place], [address] MCV (RBC) [Entitic vol] 88.0 fL Normal 81-99 [facility] Comment on above: Performed By: #### L 100.0500 #### [facility] [address] [place], [address] Platelet mean volume (Bld) [Entitic vol] 8.8 fL Normal 6.2-12.0 [facility] Comment on above: Performed By: #### L 100.0500 #### [facility] [address] [place], [address] Platelets (Bld) [#/Vol] 240 10*3/uL Normal 150-450 [facility] Comment on above: Performed By: #### L 100.0500 #### [facility] [address] [place], [address] RBC (Bld) [#/Vol] 3.43 10*6/uL Low 4.2-5.4 [facility] Comment on above: Performed By: #### L 100.0500 #### [facility] [address] [place], [address] RDW SD 36.2 fl Normal 35.1-43.9 [facility] Comment on above: Performed By: #### L 100.0500 #### [facility] [address] [place], [address] WBC (Bld) [#/Vol] 2.9 10*3/uL Low 4.4-11.0 [facility] Comment on above: Performed By: #### L 100.0500 #### [facility] [address] [facility] [place], [address] Carbon dioxide, total [Moles /volume] in Central venous bloodOrdered By: Jonathan Brasher on 10-09-2024 CO2 [Moles/Vol] 21.1 mmol/L 21.0-32.0 [facility] Chloride assayOrdered By: Alvin Brasher on 10-09-2024 Chloride [Moles/Vol] 92 mmol/L Low 98-108 [facility] Discharge Instructionon 09-19 Discharge Instruction [facility] Medical Records Department [address] [place] [address] Instructions for Home/Discharge Instructions 10/09/24 1030 MR#: [id number] Acct: [id number] Name: ISA TOVAR Rep #: [id number] : 1970 54 From: Mitchell Tobias MD [...] 20 mg tablet 20 mg PO BID mufifeo-bbyppwtkh-zyer 333-133-5 mg tablet 3 tab PO BID [...] DO; Dr. Brandon Monet DO Signed Normal [facility] Erythrocyte distribution wid th ratioOrdered By: Jonathan Brasher on 10-09-2024 Erythrocyte distribution width (RBC) [Ratio] 11.3 % Low 11.6-14.6 [facility] Erythrocyte distribution wid th standard deviationOrdered By: Jonathan Brasher on 10-09-2024 Erythrocyte distribution width (RBC) [Entitic vol] 36.2 fL 35.1-43.9 [facility] Estimation of creatinine pedro aranceOrdered By: Jonathan Brasher on 10-09-2024 Estimated Creatinine Clearance Calc 100.87 ml/min 50-250 [facility] GFR/1.73 sq M.predicted sara g non-blacks MDRD (S/P/Bld) [Vol rate/Area]Ordered By: Jonathan Brasher on 10-09-2024 Estimated GFR (MDRD) Non-Af Amer 106 >60 [facility] Comment on above: mL/min/1.73m2 CKD-EP I Creatinine Equation (2020) Hematocrit Auto (Bld) [Volum e fraction]Ordered By: Jonathan Brasher on 10-09-2024 Hematocrit (Bld) [Volume fraction] 30.2 % Low 37-47 [facility] Hemoglobin measurementOrdere d By: Jonathan Brasher on 10-09-2024 Hemoglobin (Bld) [Mass/Vol] 11.2 g/dL Low 12.0-15.0 [facility] MCV (mean corpuscular volume ) determinationOrdered By: Jonathan Brasher on 10-09-2024 MCV (RBC) [Entitic vol] 88.0 fL 81-99 [facility] Mean corpuscular hemoglobin (MCH) determinationOrdered By: Jonathan Brasher on 10-09-2024 MCH (RBC) [Entitic mass] 32.7 pg High 27.0-32.0 [facility] Mean corpuscular hemoglobin concentration (MCHC) determinationOrdered By: Jonathan Brasher on 10-09-2024 MCHC (RBC) [Mass/Vol] 37.1 g/dL High 32-36 [facility] Mean platelet volume determi nationOrdered By: Jonathan Brasher on 10-09-2024 Platelet mean volume (Bld) [Entitic vol] 8.8 fL 6.2-12.0 [facility] Platelet countOrdered By: Alvin Brasher on 10-09-2024 Platelets (Bld) [#/Vol] 240 10*3/uL 150-450 [facility] Potassium (Unsp spec) [Mass/ Vol]Ordered By: Jonathan Brasher on 10-09-2024 Potassium [Moles/Vol] 3.3 mmol/L 3.3-5.1 [facility] RBC Auto (Bld) [#/Vol]Ordere d By: Jonathan Brasher on 10-09-2024 RBC (Bld) [#/Vol] 3.43 10*6/uL Low 4.2-5.4 [facility] Serum creatinine measurement (mass/volume)Ordered By: Jonathna Brasher on 10-09-2024 Creatinine [Mass/Vol] 0.62 mg/dL Low 0.70-1.20 [facility] Serum glucose measurement (m ass/volume)Ordered By: Jonathan Brasher on 10-09-2024 Glucose [Mass/Vol] 97 mg/dL 70-99 [facility] Serum or plasma calcium ramon urement (mass/volume)Ordered By: Jonathan Brasher on 10-09-2024 Calcium [Mass/Vol] 9.1 mg/dL 7.6-11.0 [facility] Serum or plasma urea nitroge n measurement (mass/volume)Ordered By: Jonathan Brasher on 10-09-2024 Urea nitrogen [Mass/Vol] 8 mg/dL 4-19 [facility] Sodium levelOrdered By: Guicho Brasher on 10-09-2024 Sodium [Moles/Vol] 125 mmol/L Low 133-145 [facility] White blood cell (WBC) count Ordered By: Jonathan Brasher on 10-09-2024 WBC (Bld) [#/Vol] 2.9 10*3/uL Low 4.4-11.0 [facility] 12 Lead EKGon 10-08-2024 12 Lead EKG [facility] [address] [place] [address] 12 Lead EKG 10/08/24 1528 MR#: [id number] Acct: [id number] Name: ISA TOVAR Rep #: [id number] : 1970 54 From: Mike Scott MD [...] Abnormal ECG Confirmed by GURU PECK, MIKE ([id number]), video news editor PEARL GILBERT ([id number]) on 10/11/2024 6:46:08 AM Referred By: Confirmed By: MIKE SCOTT MD 10/11/24 0646 Date Mike Scott MD CC: Dr. Brandon Monet DO; Dr. Mitchell Tobias MD; Dr. Iftikhar Mendoza DO Signed Normal [facility] Absolute neutrophil countOrd ered By: Iftikhar Mendoza on 10-08-2024 Neutrophils (Bld) [#/Vol] 3.1 10*3/uL 2.0-7.7 [facility] Anion gap in Serum or Plasma Ordered By: Iftikhar Mendoza on 10-08-2024 Anion gap [Moles/Vol] 13 mmol/L 12-02 [facility] BUN/creatinine ratioOrdered By: Iftikhar Mendoza on 10-08-2024 Urea nitrogen/Creatinine [Mass ratio] 12.2 mg/mg - [facility] Basic Metabolic Profile (BMP )on 10-08-2024 BUN/CRE 9.5 RATIO Low - [facility] Comment on above: Performed By: #### L 100.0100, L500.2500, L501.5200 #### [facility] [address] [place], [address] Calcium [Mass/Vol] 9.7 mg/dL Normal 7.6-11.0 [facility] Comment on above: Performed By: #### L 100.0100, L500.2500, L501.5200 #### [facility] [address] [place], [address] Chloride [Moles/Vol] 85 mmol/L Low 98-108 [facility] Comment on above: Performed By: #### L 100.0100, L500.2500, L501.5200 #### [facility] [address] [place], [address] CO2 [Moles/Vol] 23.8 mmol/L Normal 21.0-32.0 [facility] Comment on above: Performed By: #### L 100.0100, L500.2500, L501.5200 #### [facility] [address] [place], [address] Creatinine [Mass/Vol] 0.66 mg/dL Low 0.70-1.20 [facility] Comment on above: Performed By: #### L 100.0100, L500.2500, L501.5200 #### [facility] [address] [place], [address] ECRCL 94.76 ml/min Normal 50-250 [facility] Comment on above: Performed By: #### L 100.0100, L500.2500, L501.5200 #### [facility] [address] [place], [address] GAP 12 Normal 5-15 [facility] Comment on above: Performed By: #### L 100.0100, L500.2500, L501.5200 #### [facility] [address] [place], [address] GFR/1.73 sq M.predicted among non-blacks MDRD (S/P/Bld) [Vol rate/Area] 104 mL/min/{1.73_m2} Normal >60 [facility] Comment on above: Result Comment: mL/m in/1.73m2 CKD-EPI Creatinine Equation (2020) Performed By: #### L 100.0100, L500.2500, L501.5200 #### [facility] [address] [place], [address] Glucose [Mass/Vol] 106 mg/dL High 70-99 [facility] Comment on above: Performed By: #### L 100.0100, L500.2500, L501.5200 #### [facility] [address] [place], [address] Potassium [Moles/Vol] 3.1 mmol/L Low 3.3-5.1 [facility] Comment on above: Performed By: #### L 100.0100, L500.2500, L501.5200 #### [facility] [address] [place], [address] Sodium [Moles/Vol] 121 mmol/L Low 133-145 [facility] Comment on above: Performed By: #### L 100.0100, L500.2500, L501.5200 #### [facility] [address] [place], [address] Urea nitrogen [Mass/Vol] 6 mg/dL Normal 4-19 [facility] Comment on above: Performed By: #### L 100.0100, L500.2500, L501.5200 #### [facility] [address] [place], [address] BUN/CRE 12.2 RATIO Normal 10-20 [facility] Comment on above: Performed By: #### L 100.0100, L500.2500, L501.5200 #### [facility] [address] [place], [address] Calcium [Mass/Vol] 10.1 mg/dL Normal 7.6-11.0 [facility] Comment on above: Performed By: #### L 100.0100, L500.2500, L501.5200 #### [facility] [address] [place], [address] Chloride [Moles/Vol] 78 mmol/L Low 98-108 [facility] Comment on above: Performed By: #### L 100.0100, L500.2500, L501.5200 #### [facility] [address] [place], [address] CO2 [Moles/Vol] 25.6 mmol/L Normal 21.0-32.0 [facility] Comment on above: Performed By: #### L 100.0100, L500.2500, L501.5200 #### [facility] [address] [place], [address] Creatinine [Mass/Vol] 0.66 mg/dL Low 0.70-1.20 [facility] Comment on above: Performed By: #### L 100.0100, L500.2500, L501.5200 #### [facility] [address] [place], [address] ECRCL 94.76 ml/min Normal 50-250 [facility] Comment on above: Performed By: #### L 100.0100, L500.2500, L501.5200 #### [facility] [address] [place], [address] GAP 13 Normal 5-15 [facility] Comment on above: Performed By: #### L 100.0100, L500.2500, L501.5200 #### [facility] [address] [place], [address] GFR/1.73 sq M.predicted among non-blacks MDRD (S/P/Bld) [Vol rate/Area] 104 mL/min/{1.73_m2} Normal >60 [facility] Comment on above: Result Comment: mL/m in/1.73m2 CKD-EPI Creatinine Equation (2020) Performed By: #### L 100.0100, L500.2500, L501.5200 #### [facility] [address] [place], [address] Glucose [Mass/Vol] 106 mg/dL High 70-99 [facility] Comment on above: Performed By: #### L 100.0100, L500.2500, L501.5200 #### [facility] [address] [place], [address] Potassium [Moles/Vol] 2.5 mmol/L Invalid Interpretation Code 3.3-5.1 [facility] Comment on above: Result Comment: Hemo lysis present, Results??could be affected. ?? Critical Result(s) Called at: by:??Results read back by same. Performed By: #### L 100.0100, L500.2500, L501.5200 #### [facility] [address] [place], [address] Sodium [Moles/Vol] 117 mmol/L Invalid Interpretation Code 133-145 [facility] Comment on above: Result Comment: Crit ical Result(s) Called at:1447 TO EMILLER by: KCLAPPER??Results read back by same. Performed By: #### L 100.0100, L500.2500, L501.5200 #### [facility] [address] [place], [address] Urea nitrogen [Mass/Vol] 8 mg/dL Normal 4-19 [facility] Comment on above: Performed By: #### L 100.0100, L500.2500, L501.5200 #### [facility] [address] [place], [address] Basophil percentageOrdered B y: Iftikhar Mendoza on 10-08-2024 Basophils/100 WBC (Bld) 0.6 % 0-1 [facility] Bilirubin Test strip Ql (U)O rdered By: Iftikhar Mendoza on 10-08-2024 Bilirubin Ql (U) Negative Negative [facility] CBC W/Diff, Automatedon 03-2 Absolute Lymph 1.24 X10 3/uL Normal 0.83-4.51 [facility] Comment on above: Performed By: #### L 100.0100, L500.2500, L501.5200 #### [facility] [address] [place], [address] Absolute Neut 3.1 X10 3/uL Normal 2.0-7.7 [facility] Comment on above: Performed By: #### L 100.0100, L500.2500, L501.5200 #### [facility] [address] [place], [address] Basophils/100 WBC (Bld) 0.6 % Normal 0-1 [facility] Comment on above: Performed By: #### L 100.0100, L500.2500, L501.5200 #### [facility] [address] [place], [address] Eosinophils/100 WBC (Bld) 1.9 % Normal 0-5 [facility] Comment on above: Performed By: #### L 100.0100, L500.2500, L501.5200 #### [facility] [address] [place], [address] Erythrocyte distribution width (RBC) [Ratio] 11.3 % Low 11.6-14.6 [facility] Comment on above: Performed By: #### L 100.0100, L500.2500, L501.5200 #### [facility] [address] [place], [address] Hematocrit (Bld) [Volume fraction] 33.4 % Low 37-47 [facility] Comment on above: Performed By: #### L 100.0100, L500.2500, L501.5200 #### [facility] [address] [place], [address] Hemoglobin (Bld) [Mass/Vol] 12.4 g/dL Normal 12.0-15.0 [facility] Comment on above: Performed By: #### L 100.0100, L500.2500, L501.5200 #### [facility] [address] [place], [address] IG% 0.400 Normal 0.0-0.9 [facility] Comment on above: Result Comment: IG% - Immature Granulocytes (promyelocytes, myelocytes and metamyelocytes) > 1% indicates that a LEFT SHIFT is Present. Performed By: #### L 100.0100, L500.2500, L501.5200 #### [facility] [address] [place], [address] Lymphocytes/100 WBC (Bld) 25.9 % Normal 19-41 [facility] Comment on above: Performed By: #### L 100.0100, L500.2500, L501.5200 #### [facility] [address] [place], [address] MCH (RBC) [Entitic mass] 32.7 pg High 27.0-32.0 [facility] Comment on above: Performed By: #### L 100.0100, L500.2500, L501.5200 #### [facility] [address] [place], [address] MCHC (RBC) [Mass/Vol] 37.1 g/dL High 32-36 [facility] Comment on above: Performed By: #### L 100.0100, L500.2500, L501.5200 #### [facility] [address] [place], [address] MCV (RBC) [Entitic vol] 88.1 fL Normal 81-99 [facility] Comment on above: Performed By: #### L 100.0100, L500.2500, L501.5200 #### [facility] [address] [place], [address] Monocytes/100 WBC (Bld) 7.1 % Normal 0-10 [facility] Comment on above: Performed By: #### L 100.0100, L500.2500, L501.5200 #### [facility] [address] [place], [address] Neutrophils/100 WBC (Bld) 64.1 % Normal 47-70 [facility] Comment on above: Performed By: #### L 100.0100, L500.2500, L501.5200 #### [facility] [address] [place], [address] Nucleated RBC (Bld) [#/Vol] 0 10*3/uL Normal 0-5 [facility] Comment on above: Performed By: #### L 100.0100, L500.2500, L501.5200 #### [facility] [address] [place], [address] Platelet mean volume (Bld) [Entitic vol] 8.7 fL Normal 6.2-12.0 [facility] Comment on above: Performed By: #### L 100.0100, L500.2500, L501.5200 #### [facility] [address] [place], [address] Platelets (Bld) [#/Vol] 297 10*3/uL Normal 150-450 [facility] Comment on above: Performed By: #### L 100.0100, L500.2500, L501.5200 #### [facility] [address] [place], [address] RBC (Bld) [#/Vol] 3.79 10*6/uL Low 4.2-5.4 [facility] Comment on above: Performed By: #### L 100.0100, L500.2500, L501.5200 #### [facility] [address] [place], [address] RDW SD 36.2 fl Normal 35.1-43.9 [facility] Comment on above: Performed By: #### L 100.0100, L500.2500, L501.5200 #### [facility] [address] [place], [address] WBC (Bld) [#/Vol] 4.8 10*3/uL Normal 4.4-11.0 [facility] Comment on above: Performed By: #### L 100.0100, L500.2500, L501.5200 #### [facility] [address] [place], [address] Chase 10-08-2024 CNPN Telephone (KIDMMN) LAISA ([id number]) 1970 F Date Time Provider Department 10/08/24 [...] the morning. Discussed with rajani. Numbers tried: [phone] (Home Phone) [phone] (Work Phone) Attempted to call the patient again at 259. will fwd to AA and staff Addendum: I called the patient a couple of times at [phone] and also her at [phone] but there was no answer. I left her a voicemail message for her and also for her with lab results showing very low blood level of sodium and potassium and instructions for her to go to the emergency room for evaluation and treatment. Department of Kidney Medicine Medical Specialties [place] Ladarius Mayer MD Staff Nephrology and Hypertension [facility] Pager# [phone] Allergies As of Date: 10/08/2024 Noted Allergy [...] by mouth at bedtime as needed. - Oucumeg-Icrrozwlz-Kyuz tab Take by mouth. 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 Brandon Monet, DO Status: REG ER Study: Chest 1 View (Portable) Date of Exam: 10/08/24 Exam# [id number] Ordering Dr: Iftikhar Mendoza DO EXAM: XR [...] process. Reading [facility] CC: Dr. Brandon Monet DO; Dr. Iftikhar Mendoza DO Homicide Squad Lieutenant: Signed Normal [facility] Chloride assayOrdered By: Michell Mendoza on 10-08-2024 Chloride [Moles/Vol] 78 mmol/L Low 98-108 [facility] Emergency Department Summary on 10-08-2024 Emergency Department Summary [facility] Medical Records Department [address] [place] [address] Emergency Department Summary 10/08/24 MR#: [id number] Acct: [id number] Name: ISA TOVAR Rep #: [id number] : 1970 54 From: Iftikhar Mendoza DO PCP: Dr. Brandon Monet DO Status:ADM IN Location: [place] [address] HPI History of Present Illness Chief Complaint: Abn Labs Detail of Chief Complaint: Abnormal labs Narrative Narrative: Patient presents to the emergency department complaint of abnormal labs today. Patient states that she has been dealing with elevated blood pressure since April. She was referred to a nursing home physician whom she had a virtual visit with [...] her cough sometimes causes her to vomit [facility] Medical History (Updated 10/08/24 @ 14:55 by [...] soft to (more content not included)... Normal [facility] Eosinophil percentageOrdered By: Iftikhar Mendoza on 10-08-2024 Eosinophils/100 WBC (Bld) 1.9 % 0-5 [facility] Epithelial cells.squamous LM Ql (Urine sed)Ordered By: Iftikhar Mendoza on 10-08-2024 Epithelial cells.squamous LM.HPF (Urine sed) [#/Area] 0 /[HPF] 5-10 [facility] Erythrocyte distribution wid th ratioOrdered By: Iftikhar Mendoza on 10-08-2024 Erythrocyte distribution width (RBC) [Ratio] 11.3 % Low 11.6-14.6 [facility] Erythrocyte distribution wid th standard deviationOrdered By: Iftikhar Mendoza on 10-08-2024 Erythrocyte distribution width (RBC) [Entitic vol] 36.2 fL 35.1-43.9 [facility] Estimation of creatinine pedro aranceOrdered By: Iftikhar Mendoza on 10-08-2024 Estimated Creatinine Clearance Calc 94.76 ml/min 50-250 [facility] GFR/1.73 sq M.predicted sara g non-blacks MDRD (S/P/Bld) [Vol rate/Area]Ordered By: Iftikhar Mendoza on 10-08-2024 Estimated GFR (MDRD) Non-Af Amer 104 >60 [facility] Comment on above: mL/min/1.73m2 CKD-EP I Creatinine Equation (2020) Glucose Ql (U)Ordered By: Michell wong Armandoyaneth on 10-08-2024 Urine Glucose (UA) Normal mg/dl Normal [facility] H AND P Exam - Hospitaliston 10-08-2024 H&P Exam - Hospitalist [facility] Medical Records Department [address] [place] [address] H P Exam - Hospitalist 10/08/24 1458 MR#: [id number] Acct: [id number] Name: ISA TOVAR Rep #: [id number] : 1970 54 From: Jonathan Brasher DO PCP: Dr. Brandon Monet, DO Status:ADM IN Location: [place] [address] HPI - General General Date of Admission: 10/08/24 Date of Service: 10/08/24 Chief Complaint: Abnormal labs HPI Narrative ISA TOVAR, is a 54 F who presented to [facility] ED on 10/08/2024 with abnormal outpatient labs. [...] No other acute concerns at this time. [facility] Medical History (Updated 10/08/24 @ 16:[address] Jonathan Brasher, DO) Hypertension Medical History no medical history Home Medications ???Medication ???Instructions ???Recorded ???Last Taken ???Type fluoxetine 40 mg capsule 40 mg PO DAILY 05/30/24 10/08/24 H istory artifi.tears(hypromell ose)(PF) 1.7 1 drp EACH EYE DAILY PRN dry eye (s) 10/08/24 10/08/24 History % eye drops with applicator rjfzflo-lpghjelta-vaht 333 mg-133 3 tab PO BID 10/08/24 [...] chest no (more content not included)... Normal [facility] Hematocrit Auto (Bld) [Volum e fraction]Ordered By: Iftikhar Mendoza on 10-08-2024 Hematocrit (Bld) [Volume fraction] 33.4 % Low 37-47 [facility] Hemoglobin measurementOrdere d By: Iftikhar Mendoza on 10-08-2024 Hemoglobin (Bld) [Mass/Vol] 12.4 g/dL 12.0-15.0 [facility] Immature granulocytes/100 WB C Auto (Bld)Ordered By: Iftikhar Mendoza on 10-08-2024 Immature granulocytes/100 WBC (Bld) 0.400 % 0.0-0.9 [facility] Comment on above: IG% - Immature Granu locytes (promyelocytes, myelocytes and metamyelocytes) > 1% indicates that a LEFT SHIFT is Present. Ketones Test strip Ql (U)Ord ered By: Iftikhar Mendoza on 10-08-2024 Ketones Ql (U) Negative Negative [facility] Lymphocytes Auto (Unsp spec) [#/Vol]Ordered By: Iftikhar Mendoza on 10-08-2024 Lymphocytes (Bld) [#/Vol] 1.24 10*3/uL 0.83-4.51 [facility] Lymphocytes/100 WBC Auto (Un sp spec)Ordered By: Iftikhar Mendoza on 10-08-2024 Lymphocytes/100 WBC (Bld) 25.9 % 19-41 [facility] MCV (mean corpuscular volume ) determinationOrdered By: Iftikhar Mendoza on 10-08-2024 MCV (RBC) [Entitic vol] 88.1 fL 81-99 [facility] Magnesiumon 10-08-2024 Magnesium [Mass/Vol] 2.1 mg/dL Normal 1.5-2.2 [facility] Comment on above: Performed By: #### L 100.0100, L500.2500, L501.5200 #### [facility] [place], [address] Magnesium (Unsp spec) [Mass/ Vol]Ordered By: Iftikhar Mendoza on 10-08-2024 Magnesium [Mass/Vol] 2.1 mg/dL 1.5-2.2 [facility] Mean corpuscular hemoglobin (MCH) determinationOrdered By: Iftikhar Mendoza on 10-08-2024 MCH (RBC) [Entitic mass] 32.7 pg High 27.0-32.0 [facility] Mean corpuscular hemoglobin concentration (MCHC) determinationOrdered By: Iftikhar Mendoza on 10-08-2024 MCHC (RBC) [Mass/Vol] 37.1 g/dL High 32-36 [facility] Mean platelet volume determi nationOrdered By: Iftikhar Mendoza on 10-08-2024 Platelet mean volume (Bld) [Entitic vol] 8.7 fL 6.2-12.0 [facility] Microscopic analysis of urin e for red blood cells (RBC)Ordered By: Iftikhar Mendoza on 10-08-2024 Urine RBC 0-5 SEEN /hpf 0-5 [facility] Monocyte percentageOrdered B y: Iftikhar Mendoza on 10-08-2024 Monocytes/100 WBC (Bld) 7.1 % 0-10 [facility] Mucus LM Ql (Urine sed)Order ed By: Iftikhar Mendoza on 10-08-2024 Mucus Ql (Urine sed) 0 SEEN /hpf [facility] Neutrophil percentageOrdered By: Iftikhar Mendoza on 10-08-2024 Neutrophils/100 WBC (Bld) 64.1 % 47-70 [facility] Nitrite Test strip Ql (U)Ord ered By: Iftikhar Mendoza on 10-08-2024 Nitrite Ql (U) Negative Negative [facility] Nucleated red blood cell per centageOrdered By: Iftikhar Mendoza on 10-08-2024 Nucleated RBC/100 WBC (Bld) [Ratio] 0 % 0-5 [facility] Osmolality (U) [Osmolality]O rdered By: Jonathan Brasher on 10-08-2024 Urine Osmolality 138 mOsm/KG >50 [facility] Comment on above: Normal Urine Referen ce Ranges Random: 50 - 1200 mOsm/kg H20 depending on fluid intake Random: >850 mOsm/kg after 12 hour fluid restriction 24 hour: ~300 - 900 mOsm/kg H2O Osmolality, Serumon 10-09-19 25 OSMOLALITY,SER 253 mOsm/KG Low 275-295 [facility] Comment on above: Performed By: #### L 501.7300 #### [facility] [address] [place], [place], [id number] Osmolality, Urineon 10-09-19 25 OSMOLALITY,UR 138 mOsm/KG Normal [facility] Comment on above: Result Comment: Normal Urine Reference Ranges Random: 50 - 1200 mOsm/kg H20 depending on fluid intake Random: >850 mOsm/kg after 12 hour fluid restriction 24 hour: 300 - 900 mOsm/kg H2O Performed By: #### L 501.7400, L501.5500 #### [facility] [address] [facility], [address] Osmolality, serumOrdered By: Jonathan Brasher on 10-08-2024 Serum Osmolality 253 mOsm/KG Low 275-295 [facility] Phosphoruson 10-08-2024 Phosphate [Mass/Vol] 2.6 mg/dL Low 2.7-4.5 [facility] Comment on above: Performed By: #### L 100.0100, L500.2500, L501.5200 #### [facility] [address] [place], [address] Platelet countOrdered By: Michell Mendoza on 10-08-2024 Platelets (Bld) [#/Vol] 297 10*3/uL 150-450 [facility] Potassium (Unsp spec) [Mass/ Vol]Ordered By: Aliza Kelly on 10-08-2024 Potassium [Moles/Vol] 2.5 mmol/L Low 3.3-5.1 [facility] Comment on above: Hemolysis present, R esults could be affected. Critical Result(s) Called at: by: Results read back by same. Protein Test strip Ql (U)Ord ered By: Aliza Kelly on 10-08-2024 Protein Ql (U) Negative Negative [facility] RBC Auto (Bld) [#/Vol]Ordere d By: Alizaus Robertsyaneth on 10-08-2024 RBC (Bld) [#/Vol] 3.79 10*6/uL Low 4.2-5.4 [facility] Serum creatinine measurement (mass/volume)Ordered By: Iftikhar Mendoza on 10-08-2024 Creatinine [Mass/Vol] 0.66 mg/dL Low 0.70-1.20 [facility] Serum glucose measurement (m ass/volume)Ordered By: Iftikhar Mendoza on 10-08-2024 Glucose [Mass/Vol] 106 mg/dL High 70-99 [facility] Serum or plasma calcium ramon urement (mass/volume)Ordered By: Iftikhar Mendoza on 10-08-2024 Calcium [Mass/Vol] 10.1 mg/dL 7.6-11.0 [facility] Serum or plasma urea nitroge n measurement (mass/volume)Ordered By: Iftikhar Mendoza on 10-08-2024 Urea nitrogen [Mass/Vol] 8 mg/dL 4-19 [facility] Serum phosphorus measurement Ordered By: Jonathan Brasher on 10-08-2024 Phosphorus Level 2.6 mg/dL Low 2.7-4.5 [facility] Sodium levelOrdered By: Richie rhoda Kelly on 10-08-2024 Sodium [Moles/Vol] 117 mmol/L Low 133-145 [facility] Comment on above: Critical Result(s) C alled at:1447 TO EMILLER by: KCLAPPER Results read back by same. Urinalysis, Completeon 10-08 RBC 0-5 SEEN Normal 0-5 [facility] Comment on above: Order Comment: CLEAN CATCH Performed By: #### L 400.0001 #### [facility] [address] [place], [address] EPI,SQUAMOUS 0-5 SEEN Normal 5-10 [facility] Comment on above: Order Comment: CLEAN CATCH Performed By: #### L 400.0001 #### [facility] [address] [place], [address] WBC 0-5 SEEN Normal 0-5 [facility] Comment on above: Order Comment: CLEAN CATCH Performed By: #### L 400.0001 #### [facility] [address] [place], [address] BACTERIA 0 SEEN Normal None Seen [facility] Comment on above: Order Comment: CLEAN CATCH Performed By: #### L 400.0001 #### [facility] [address] [place], [address] Mucus Ql (Urine sed) 0 SEEN Normal [facility] Comment on above: Order Comment: CLEAN CATCH Performed By: #### L 400.0001 #### [facility] [address] [place], [address] Urine Sodiumon 10-08-2024 Sodium (U) [Moles/Vol] 39 mmol/L Normal Not Establ. [facility] Comment on above: Performed By: #### L 501.7400, L501.5500 #### [facility] [address] [place], [address] Urine blood detectionOrdered By: Remus Mendoza on 10-08-2024 Urine Occult Blood Negative Negative [facility] Urine clarityOrdered By: Rem us Ungyaneth on 10-08-2024 Clarity (U) Clear Clear [facility] Urine color determinationOrd ered By: Iftikhar Mendoza on 10-08-2024 Color (U) Yellow Yellow [facility] Urine leukocyte esterase det ection by dipstickOrdered By: Iftikhar Mendoza on 10-08-2024 Leukocyte esterase Test strip Ql (U) Negative Negative [facility] Urine pHOrdered By: Iftikhar Myers nayr on 10-08-2024 pH (U) 8.0 [pH] 5.0 - 8.0 [facility] Urine sediment bacteria coun t by microscopy (number/high power field)Ordered By: Iftikhar Mendoza on 10-08-2024 Bacteria LM.HPF (Urine sed) [#/Area] 0 /[HPF] None Seen [facility] Urine sodium measurement (mo les/volume)Ordered By: Jonathan Brasher on 10-08-2024 Sodium (U) [Moles/Vol] 39 mmol/L Not Establ. [facility] Urine specific gravity measu rementOrdered By: Iftikhar Mendoza on 10-08-2024 Specific gravity (U) [Rel density] 1.010 1.002-1.030 [facility] Urobilinogen Ql (U)Ordered B y: Iftikhar Mendoza on 10-08-2024 Urine Urobilinogen Normal mg/dl Normal [facility] White blood cell (WBC) count Ordered By: Iftikhar Mendoza on 10-08-2024 WBC (Bld) [#/Vol] 4.8 10*3/uL 4.4-11.0 [facility] White blood cell countOrdere d By: Iftikhar Mendoza on 10-08-2024 Urine WBC 0-5 SEEN /hpf 0-5 [facility] ACTH Plas-mCncon 10-07-2024 Corticotropin (P) [Mass/Vol] 33.7 pg/mL Normal 7.2-63.3 [facility] Comment on above: Order Comment: Speci men Type: BLOOD SPECIMEN Ordering Facility: [facility] Address: [address] [place] [address] Result Comment: ACTH Reference Range: 7-10 am: 7.2 - 63.3 pg/mL Performed By: #### 2 141-0 #### [facility] CLIA [id number] [address] [place], [place] [address] [address] [place] ADH/ARGININE VASOPRSon 10-07 ARGININE VASOPRESSIN 1.1 pg/mL Normal 0.0-6.9 [facility] Comment on above: Order Comment: Speci men Type: BLOOD SPECIMENOrdering Facility: [facility] [place] Address: [address] [place] [address] Result Comment: INTE RPRETIVE INFORMATION: Arginine Vasopressin Hormone This test was developed and its performance characteristics determined by [facility]. It has not been cleared or approved by the US Food and Drug Administration. This test was performed in a CLIA certified laboratory and is intended for clinical purposes. Performed By: [facility] [address] [place] [address] [employer]: Angel Potter MD, PhD CLIA Number: [id number] Performed By: #### A DH ####[facility] SYSTEMIA [id number] [place] [address] ALBUMIN/CREATININE RATIO, UR INEon 10-07-2024 Albumin DL <= 20 mg/L (U) [Mass/Vol] mg/dL Normal [facility] Comment on above: Order Comment: Speci men Type: URINE SPECIMEN Ordering Facility: [facility] [place] Address: [address] [place] [address] Performed By: #### 3 5677-4, 23944-0, 90537-1 #### [facility] CLIA [id number] [address] [place] [address] STATES OF [facility] Albumin/Creatinine (U) [Mass ratio] Normal [facility] Comment on above: Order Comment: Speci men Type: URINE SPECIMEN Ordering Facility: [facility] [place] Address: [address] [place] [address] Result Comment: Not calculated Adult Male and Female Nephrotic Criteria: <30 mg/g is considered normal to mildly increased 30-300 mg/g is considered moderately increased >300 mg/g is considered severely increased KDIGO. (2013). KDIGO 2012 Clinical Practice Guideline for the Evaluation and Management of Chronic Kidney Disease. Official Journal of the International Society of Nephrology, 3(1), 1-150. Performed By: #### 3 5677-4, 06446-2, 89135-9 #### [facility] CLIA [id number] [address] [place], [place] [address] [place] [address] [place] CATECHOLAMINES FRAon 10-07-2 025 CATECHOLAMINE INTERPRETATION PLASMA See Note Normal [facility] Comment on above: Order Comment: Speci men Type: BLOOD SPECIMENOrdering Facility: [facility] [place] Address: [address] [place] [address] Result Comment: INTE RPRETIVE INFORMATION: Catecholamines Panel, [...] reference intervals for this test in the [employer] [facility] Test Directory ([employer]). This test was developed and its performance characteristics determined by [facility]. It has not been cleared or approved by the US Food and Drug Administration. This test was performed in a CLIA certified laboratory and is intended for clinical purposes. Performed By: [facility] [address] [place] [address] Laborer Cheesemaking: Angel Potter MD, PhD CLIA Number: [id number] Performed By: #### P LCAT ####[facility] [facility] LABORATORIESCLIA [id number] [place] [address] DOPAMINE 151 pmol/L Normal <=240 [facility] Comment on above: Order Comment: Speci men Type: BLOOD SPECIMENOrdering Facility: [facility] [place] Address: [address] [place] [address] Result Comment: INTE RPRETIVE INFORMATION: Dopamine Seated (15 min) less than or equal to 240 pmol/L Supine (30 min) less than or equal to 240 pmol/L Performed By: #### P LCAT ####[facility] LABORATORIESIA [id number] [place] [address] EPINEPHRINE (P) 153 pmol/L Normal <=330 [facility] Comment on above: Order Comment: Speci men Type: BLOOD SPECIMENOrdering Facility: [facility] [place] Address: [address] [place] [address] Result Comment: INTE RPRETIVE INFORMATION:Epinephrine Seated (15 min) less than or equal to 330 pmol/L Supine (30 min) less than or equal to 265 pmol/L Performed By: #### P LCAT ####[facility]IESCLIA [id number] [place] [address] NOREPINEPHRINE 2702 pmol/L Normal 2975-5965 [facility] Comment on above: Order Comment: Speci men Type: BLOOD SPECIMENOrdering Facility: [facility] [place] Address: [address] [place] [address] Result Comment: INTE RPRETIVE INFORMATION: Norepinephrine Seated (15 min) 1050 - 4800 pmol/L Supine (30 min) 680 - 3100 pmol/L Performed By: #### P LCAT ####[facility]OR[facility]IESCLIA [id number] [place] [address] CBC W Auto Differential pane l (Bld)on 10-07-2024 Basophils (Bld) [#/Vol] 0.03 10*3/uL Normal <0.11 [facility] Comment on above: Order Comment: Speci men Type: BLOOD SPECIMENOrdering Facility: [facility] [place] Address: [address] [place] [address] Performed By: #### 5 7021-8 ####[facility] LABCLIA [id number] [place] [address] [place] Basophils/100 WBC (Bld) 0.8 % Normal C [facility] Comment on above: Order Comment: Speci men Type: BLOOD SPECIMENOrdering Facility: [facility] [place] Address: [address] [place] [address] Performed By: #### 5 7021-8 ####[facility] LABCLIA [id number] [place] [address] [place] Differential cell count method Nom (Bld) Auto Normal [facility] Comment on above: Order Comment: Speci men Type: BLOOD SPECIMENOrdering Facility: [facility] [place] Address: [address] [place] [address] Performed By: #### 5 7021-8 ####[facility] LABCLIA [id number] [place] [address] [place] Eosinophils (Bld) [#/Vol] 0.06 10*3/uL Normal <0.46 [facility] Comment on above: Order Comment: Speci men Type: BLOOD SPECIMENOrdering Facility: [facility] [place] Address: [address] [place] [address] Performed By: #### 5 7021-8 ####[facility] LABIA [id number] [place] [address] [place] Eosinophils/100 WBC (Bld) 1.5 % Normal [facility] Comment on above: Order Comment: Speci men Type: BLOOD SPECIMENOrdering Facility: [facility] [place] Address: [address] [place] [address] Performed By: #### 5 7021-8 ####[facility] LABIA [id number] [place] [address] [place] Erythrocyte distribution width (RBC) [Ratio] 11.2 % Low 11.5-15.0 [facility] Comment on above: Order Comment: Speci men Type: BLOOD SPECIMENOrdering Facility: [facility] [place] Address: [address] [place] [address] Performed By: #### 5 7021-8 ####[facility] LABIA [id number] [place] [address] [place] Hematocrit (Bld) [Volume fraction] 33.8 % Low 36.0-46.0 [facility] Comment on above: Order Comment: Speci men Type: BLOOD SPECIMENOrdering Facility: [facility] [place] Address: [address] [place] [address] Performed By: #### 5 7021-8 ####[facility] LABCLIA [id number] [place] [address] [place] Hemoglobin (Bld) [Mass/Vol] 12.2 g/dL Normal 11.5-15.5 [facility] Comment on above: Order Comment: Speci men Type: BLOOD SPECIMENOrdering Facility: [facility] [place] Address: [address] [place] [address] Performed By: #### 5 7021-8 ####[facility] LABCLIA [id number] [place] [address] [place] Immature granulocytes (Bld) [#/Vol] 10*3/uL Normal <0.10 [facility] Comment on above: Order Comment: Speci men Type: BLOOD SPECIMENOrdering Facility: [facility] [place] Address: [address] [place] [address] Performed By: #### 5 7021-8 ####[facility] LABIA [id number] [place] [address] [place] Immature granulocytes/100 WBC (Bld) 0.3 % Normal [facility] Comment on above: Order Comment: Speci men Type: BLOOD SPECIMENOrdering Facility: [facility] [place] Address: [address] [place] [address] Performed By: #### 5 7021-8 ####[facility] LABCLIA [id number] [place] [address] [place] Lymphocytes (Bld) [#/Vol] 1.30 10*3/uL Normal 1.00-4.00 [facility] Comment on above: Order Comment: Speci men Type: BLOOD SPECIMENOrdering Facility: [facility] [place] Address: [address] [place] [address] Performed By: #### 5 7021-8 ####[facility] LABCLIA [id number] [place] [address] [place] Lymphocytes/100 WBC (Bld) 33.5 % Normal [facility] Comment on above: Order Comment: Speci men Type: BLOOD SPECIMENOrdering Facility: [facility] [place] Address: [address] [place] [address] Performed By: #### 5 7021-8 ####[facility] LABIA [id number] [place] [address] [place] MCH (RBC) [Entitic mass] 31.9 pg Normal 26.0-34.0 [facility] Comment on above: Order Comment: Speci men Type: BLOOD SPECIMENOrdering Facility: [facility] [place] Address: [address] [place] [address] Performed By: #### 5 7021-8 ####[facility]IA [id number] [place] [address] [place] MCHC (RBC) [Mass/Vol] 36.1 g/dL High 30.5-36.0 [facility] Comment on above: Order Comment: Speci men Type: BLOOD SPECIMENOrdering Facility: [facility] [place] Address: [address] [place] [address] Performed By: #### 5 7021-8 ####[facility] LABIA [id number] [place] [address] [place] MCV (RBC) [Entitic vol] 88.3 fL Normal 80.0-100.0 C [facility] Comment on above: Order Comment: Speci men Type: BLOOD SPECIMENOrdering Facility: [facility] [place] Address: [address] [place] [address] Performed By: #### 5 7021-8 ####[facility]IA [id number] [place] [address] [place] Monocytes (Bld) [#/Vol] 0.30 10*3/uL Normal <0.87 [facility] Comment on above: Order Comment: Speci men Type: BLOOD SPECIMENOrdering Facility: [facility] [place] Address: [address] [place] [address] Performed By: #### 5 7021-8 ####[facility] LABCLIA [id number] [place] [address] [place] Monocytes/100 WBC (Bld) 7.7 % Normal [facility] Comment on above: Order Comment: Speci men Type: BLOOD SPECIMENOrdering Facility: [facility] [place] Address: [address] [place] [address] Performed By: #### 5 7021-8 ####[facility] LABCLIA [id number] [place] [address] [place] Neutrophils (Bld) [#/Vol] 2.18 10*3/uL Normal 1.45-7.50 [facility] Comment on above: Order Comment: Speci men Type: BLOOD SPECIMENOrdering Facility: [facility] [place] Address: [address] [place] [address] Performed By: #### 5 7021-8 ####[facility]IA [id number] [place] [address] [place] Neutrophils/100 WBC (Bld) 56.2 % Normal [facility] Comment on above: Order Comment: Speci men Type: BLOOD SPECIMENOrdering Facility: [facility] [place] Address: [address] [place] [address] Performed By: #### 5 7021-8 ####[facility] LABCLIA [id number] [place] [address] [place] Nucleated RBC (Bld) [#/Vol] 10*3/uL Normal <0.01 [facility] Comment on above: Order Comment: Speci men Type: BLOOD SPECIMENOrdering Facility: [facility] [place] Address: [address] [place] [address] Performed By: #### 5 7021-8 ####[facility] LABCLIA [id number] [place] [id number] [place] Nucleated RBC/100 WBC (Bld) [Ratio] 0.0 /100 WBC Normal [facility] Comment on above: Order Comment: Speci men Type: BLOOD SPECIMENOrdering Facility: [facility] [place] Address: [address] [place] [address] Performed By: #### 5 7021-8 ####[facility] LABCLIA [id number] [place] [address] [place] Platelet mean volume (Bld) [Entitic vol] 9.2 fL Normal 9.0-12.7 [facility] Comment on above: Order Comment: Speci men Type: BLOOD SPECIMENOrdering Facility: [facility] [place] Address: [address] [place] [address] Performed By: #### 5 7021-8 ####[facility]IA [id number] [place] [address] [place] Platelets (Bld) [#/Vol] 324 10*3/uL Normal 150-400 [facility] Comment on above: Order Comment: Speci men Type: BLOOD SPECIMENOrdering Facility: [facility] [place] Address: [address] [place] [address] Performed By: #### 5 7021-8 ####[facility] LABIA [id number] [place] [address] [place] RBC (Bld) [#/Vol] 3.83 10*6/uL Low 3.90-5.20 [facility] Comment on above: Order Comment: Speci men Type: BLOOD SPECIMENOrdering Facility: [facility] [place] Address: [address] [place] [address] Performed By: #### 5 7021-8 ####[facility] LABCLIA [id number] [place] [address] [place] WBC (Bld) [#/Vol] 3.88 10*3/uL Normal 3.70-11.00 [facility] Comment on above: Order Comment: Speci men Type: BLOOD SPECIMENOrdering Facility: [facility] [place] Address: [address] [place] [address] Performed By: #### 5 7021-8 ####[facility] LABCLIA [id number] [place] [address] [place] CORTISOL, FREEon 10-07-2024 FREE CORTISOL, SERUM 1.06 ug/dL Normal [facility] Comment on above: Order Comment: Speci men Type: URINE SPECIMEN Ordering Facility: [facility] [place] Address: [address] [place] [address] Result Comment: 18 y ears of age and older: 8-10 a.m. collection: 0.21-1.04 ug/dL 4-6 p.m. collection: 0.10-0.63 ug/dL INTERPRETIVE INFORMATION: Cortisol, Free by [facility]/LC-MS/MS This test was developed and its performance characteristics determined by [facility]. It has not been cleared or approved by the [place] Food and Drug Administration. This test was performed in a CLIA certified laboratory and is intended for clinical purposes. Performed By: [facility] [address] [place] [address] Lab[employer] Cheesemaking: Angel Potter MD, PhD [place] Number: [id number] Performed By: #### 3 5677-4, 72143-2, 83804-6 #### [facility] CLIA [id number] [address] [place] [address] [place] CYSTATIN Con 10-07-2024 Cystatin C [Mass/Vol] 0.89 mg/L Normal 0.61-0.95 [facility] Comment on above: Order Comment: Speci men Type: BLOOD SPECIMENOrdering Facility: [facility] [place] Address: [address] [place] [address] Performed By: #### C YSTC, 55163-8, 66420-4, 2777-1 ####[facility] LABCLIA [id number] [place] [address] [place] CYSTATIN C EGFR 87 mL/min/1.73m??? Normal >=60 [facility] Comment on above: Order Comment: Speci men Type: BLOOD SPECIMENOrdering Facility: [facility] [place] Address: [address] [place] [address] Result Comment: Matilde mated Glomerular Filtration Rate (eGFR) is calculated using the 2012 CKD-EPI cystatin C equation. This equation utilizes serum cystatin C, sex, and age as parameters. The cystatin C assay has traceable calibration to the [facility] reference material. Refer to KDIGO guidelines for clinical interpretation. In patients with unstable renal function, e.g. those with acute kidney injury, the eGFR may not accurately reflect actual GFR. Performed By: #### Vijay RICH, 41461-2, 19298-1, 2776- ####[facility] LABCLIA [id number] [address] [address] [place] Comprehensive metabolic 2000 panelon 10-07-2024 Albumin [Mass/Vol] 4.6 g/dL Normal 3.9-4.9 [facility] Comment on above: Order Comment: Speci men Type: BLOOD SPECIMENOrdering Facility: [facility] [place] Address: [address] [place] [address] Performed By: #### Vijay RICH, 39001-8, , 2776-07 ####[facility] LABCLIA [id number] [address] [place] [address] [place] ALP [Catalytic activity/Vol] 106 U/L Normal 34-123 [facility] Comment on above: Order Comment: Speci men Type: BLOOD SPECIMENOrdering Facility: [facility] [place] Address: [address] [place] [address] Performed By: #### Vijay RICH, , 80458-9, 2776-07 ####[facility] LABCLIA [id number] [facility] [address] [address] [place] ALT [Catalytic activity/Vol] 33 U/L Normal 7-38 [facility] Comment on above: Order Comment: Speci men Type: BLOOD SPECIMENOrdering Facility: [facility] [place] Address: [address] [place], [place] [address] Performed By: #### Vijay RICH, , 70799-0, 2776-07 ####[facility] LABCLIA [id number] [place] [id number] [place] Anion gap [Moles/Vol] 13 mmol/L Normal 8-15 [facility] Comment on above: Order Comment: Speci men Type: BLOOD SPECIMENOrdering Facility: [facility] [place] Address: [address] [place] [address] Performed By: #### Vijay RICH, , , 2776-07 ####[facility] LABCLIA [id number] [place] [address] [place] AST [Catalytic activity/Vol] 28 U/L Normal 13-35 [facility] Comment on above: Order Comment: Speci men Type: BLOOD SPECIMENOrdering Facility: [facility] [place] Address: [address] [place] [address] Performed By: #### Vijay RICH, , , 2776-07 ####[facility] LABCLIA [id number] [place] [address] [place] Bilirubin [Mass/Vol] 0.5 mg/dL Normal 0.2-1.3 [facility] Comment on above: Order Comment: Speci men Type: BLOOD SPECIMENOrdering Facility: [facility] [place] Address: [address] [place], [place] [address] Performed By: #### Vijay RICH, , 45253-7, 2776- ####[facility] LABCLIA [id number] [place] [id number] [place] Calcium [Mass/Vol] 10.4 mg/dL High 8.5-10.2 [facility] Comment on above: Order Comment: Speci men Type: BLOOD SPECIMENOrdering Facility: [facility] [place] Address: [address] [place], [place] [address] Performed By: #### Vijay RICH, , , 2776-07 ####[facility] LABCLIA [id number] [address] [address] [place] Chloride [Moles/Vol] 79 mmol/L Low 98-107 [facility] Comment on above: Order Comment: Speci men Type: BLOOD SPECIMENOrdering Facility: [facility] [place] Address: [address] [place] [address] Performed By: #### Vijay RICH, , , 2776-07 ####[facility] LABCLIA [id number] [place] [address] [place] CO2 [Moles/Vol] 26 mmol/L Normal 22-30 [facility] Comment on above: Order Comment: Speci men Type: BLOOD SPECIMENOrdering Facility: [facility] [place] Address: [address] [place] [address] Performed By: #### Vijay RICH, , , 2776-07 ####[facility] LABCLIA [id number] [place] [address] [place] Creatinine [Mass/Vol] 0.72 mg/dL Normal 0.58-0.96 [facility] Comment on above: Order Comment: Speci men Type: BLOOD SPECIMENOrdering Facility: [facility] [place] Address: [address] [place], [place] [address] Performed By: #### Vijay RICH, , , 2776-07 ####[facility] LABCLIA [id number] [place] [id number] [place] Creatinine and Glomerular filtration rate.predicted panel (S/P/Bld) 100 mL/min/1.73m??? Normal >=60 [facility] Comment on above: Order Comment: Speci men Type: BLOOD SPECIMENOrdering Facility: [facility] [place] Address: [address] [place] [address] Result Comment: Matilde mated Glomerular Filtration Rate [...] actual GFR. Performed By: #### C YSTC, 67491-4, 56163-9, 2776- ####[facility] LABCLIA [id number] [place] [address] [place] Glucose [Mass/Vol] 104 mg/dL High 74-99 [facility] Comment on above: Order Comment: Hwoard gurrola Type: BLOOD SPECIMENOrdering Facility: [facility] [place] Address: [address] [place] [address] Result Comment: The [place] [employer] (ADA) provides guidance for cutoff [...] Standards of Medical Care in Diabetes 2016, [place] [employer]. Diabetes Care. 2016.39(Suppl 1). Performed By: #### C YSTC, 29885-1, 38344-5, 2776-07 ####[facility] LABIA [id number] [address] [address] [place] Potassium [Moles/Vol] 2.7 mmol/L Low 3.7-5.1 [facility] Comment on above: Order Comment: Howard gurrola Type: BLOOD SPECIMENOrdering Facility: [facility] [place] Address: [address] [place], [place] [address] Performed By: #### Vijay RICH, 05452-9, 36762-0, 2776- ####[facility] LABCLIA [id number] [address] [address] [place] Protein [Mass/Vol] 7.1 g/dL Normal 6.3-8.0 [facility] Comment on above: Order Comment: Speci men Type: BLOOD SPECIMENOrdering Facility: [facility] [place] Address: [address] [place] [address] Performed By: #### Vijay RICH, 17400-4, 15157-2, 2776- ####[facility] LABCLIA [id number] [place] [address] [place] Sodium [Moles/Vol] 118 mmol/L Low 136-144 [facility] Comment on above: Order Comment: Speci men Type: BLOOD SPECIMENOrdering Facility: [facility] [place] Address: [address] [place] [address] Performed By: #### Vijay RICH, 44588-2, 05078-3, 2776- ####[facility] LABCLIA [id number] [place] [address] [place] Urea nitrogen [Mass/Vol] 9 mg/dL Normal 7-21 [facility] Comment on above: Order Comment: Speci men Type: BLOOD SPECIMENOrdering Facility: [facility] [place] Address: [address] [place] [address] Performed By: #### Vijay RICH, 66116-4, 34244-1, 2776- ####[facility] LABCLIA [id number] [address] [address] [place] Creat ?Tm Ur-mCncon 10-08-19 25 Creatinine (U) [Mass/Vol] 35.8 mg/dL Normal 20.0-300.0 [facility] Comment on above: Order Comment: Speci men Type: URINE SPECIMEN Ordering Facility: [facility] [place] Address: [address] [place] [address] Performed By: #### 3 5677-4, 17879-6, 88214-1 #### [facility] CLIA [id number] [address] [place] [address] STATES OF [facility] DEOXYCORTICOSTERONE QUANTon 10-07-2024 11 DEOXYCORTICOSTERONE 10.10 ng/dL Normal [facility] Comment on above: Order Comment: Speci men Type: BLOOD SPECIMENOrdering Facility: [facility] [place] Address: [address] [place] [address] Result Comment: Refe rence Interval: Age Male and Female (ng/dL) Pre-pubertal children.....Less than or equal to 34 Adults....................Less than or equal to 19 REFERENCE INTERVAL: 11-Deoxycorticosterone Quantitative by HPLC-MS/MS, Serum or Plasma Access complete set of age- and/or gender-specific reference intervals for this test in the [employer] Laboratory Test Directory ([employer]). This test was developed and its performance characteristics determined by [facility]. It has not been cleared or approved by the US Food and Drug Administration. This test was performed in a CLIA certified laboratory and is intended for clinical purposes. Performed By: [facility] [address] [place] [address] [employer]esem[employer]: Angel Potter MD, PhD CLIA Number: [id number] Performed By: #### 1 1DCOR ####[facility] [id number] [place] [address] METANEPHRINES, FREE PLASMAon 10-07-2024 METANEPHRINE, PLASMA 30 pg/mL Normal 12-67 [facility] Comment on above: Order Comment: Speci men Type: URINE SPECIMEN Ordering Facility: [facility] [place] Address: [address] [place] [address] Result Comment: Refe rence Ranges: Hypertensive adult > or = 18 yrs old: 12-72 pg/mL Normotensive adult > or = 18 yrs old: 12-67 pg/mL Normotensive children < 18 yrs old: 10-95 pg/mL Performed By: #### 3 5677-4, 28690-1, 30641-4 #### [facility] CLIA [id number] [address] [place] [address] [place] NORMETANEPHRINE, PLASMA 69 pg/mL Normal 18-101 [facility] Comment on above: Order Comment: Speci men Type: URINE SPECIMEN Ordering Facility: [facility] [place] Address: [address] [place] [address] Result Comment: Refe rence Ranges: Hypertensive adult > or = 18 yrs old: 24-145 pg/mL Normotensive adult > or = 18 yrs old: 18-101 pg/mL Normotensive children < 18 yrs old: 22-83 pg/mL Methyldopa may cause false elevation of normetanephrine levels in this assay. If patient is on methyldopa, interpret results with caution. Performed By: #### 3 5677-4, 84210-9, 66868-3 #### [facility] CLIA [id number] [address] [place] [address] [place] Magnesium SerPl-mCncon 10-07 Magnesium [Mass/Vol] 2.2 mg/dL Normal 1.7-2.3 [facility] Comment on above: Order Comment: Speci men Type: BLOOD SPECIMENOrdering Facility: [facility] [place] Address: [address] [place] [address] Performed By: #### C YSTC, 32498-4, 60987-0, 2777-1 ####[facility] LABCLIA [id number] [place] [address] [place] Osmolality SerPlon 5 Osmolality [Osmolality] 245 mosm/kg Low 275-300 [facility] Comment on above: Order Comment: Speci men Type: BLOOD SPECIMENOrdering Facility: [facility] [place] Address: [address] [place] [address] Performed By: #### 2 692-2 ####[facility] LABCLIA [id number] [place] [id number] [place] Phosphate SerPl-mCncon 10-07 Phosphate [Mass/Vol] 2.8 mg/dL Normal 2.7-4.8 [facility] Comment on above: Order Comment: Speci men Type: BLOOD SPECIMENOrdering Facility: [facility] [place] Address: [address] [place] [address] Performed By: #### C YSTC, 29939-6, 77774-3, 2777-1 ####[facility] LABCLIA [id number] [place] [address] [place] Prot/Creat Uron 10-07-2024 Protein/Creatinine (U) [Mass ratio] 0.25 mg/mg High <0.15 [facility] Comment on above: Order Comment: Speci men Type: URINE SPECIMEN Ordering Facility: [facility] [place] Address: [address] [place] [address] Result Comment: Adul t Proteinuria Categories: <0.15 mg/mg is considered normal to mildly increased 0.15 - 0.50 mg/mg is considered moderately increased >0.50 mg/mg is considered severely increased KDIGO. (2013). KDIGO 2012 Clinical Practice Guideline for the Evaluation and Management of Chronic Kidney Disease. Official Journal of the International Society of Nephrology, 3(1), 1-150. Performed By: #### 3 5677-4, 72008-6, 13292-7 #### [facility] CLIA [id number] [address] [place] [address] [place] Protein/Creatinine (U) [Mass ratio]on 10-07-2024 Protein (U) [Mass/Vol] 9 mg/dL Normal 0-20 [facility] Comment on above: Order Comment: Speci men Type: URINE SPECIMEN Ordering Facility: [facility] [place] Address: [address] [place] [address] Performed By: #### 3 5677-4, 43872-3, 85009-2 #### [facility] CLIA [id number] [address] [place] [address] [place] Urate SerPl-mCncon Urate [Mass/Vol] 2.1 mg/dL Low 2.5-6.6 [facility] Comment on above: Order Comment: Speci men Type: BLOOD SPECIMENOrdering Facility: [facility] [place] Address: [address] [place] [address] Performed By: #### 3 084-1 ####[facility] LABCLIA [id number] [place] [address] [place] Urinalysis complete panel (U )on 10-07-2024 Bacteria LM.HPF (Urine sed) [#/Area] Negative Normal Negative [facility] Comment on above: Order Comment: Speci men Type: URINE SPECIMENOrdering Facility: [facility] [place] Address: [address] [place] [address] Performed By: #### 2 4356-8 ####[facility] LABCLIA [id number] [place] [address] [place] Bilirubin Ql (U) Negative Normal Negative [facility] Comment on above: Order Comment: Speci men Type: URINE SPECIMENOrdering Facility: [facility] [place] Address: [address] [place] [address] Performed By: #### 2 4356-8 ####[facility] LABCLIA [id number] [place] [address] [place] Clarity (Unsp spec) Clear Normal Clear [facility] Comment on above: Order Comment: Speci men Type: URINE SPECIMENOrdering Facility: [facility] [place] Address: [address] [place] [address] Performed By: #### 2 4356-8 ####[facility] LABCLIA [id number] [place] [id number] [place] Color (U) Yellow Normal Yellow [facility] Comment on above: Order Comment: Speci men Type: URINE SPECIMENOrdering Facility: [facility] [place] Address: [address] [place] [address] Performed By: #### 2 4356-8 ####[facility] LABCLIA [id number] [address], [facility] [place] [facility] Epithelial cells LM.HPF (Urine sed) [#/Area] None Seen Normal [facility] Comment on above: Order Comment: Speci men Type: URINE SPECIMENOrdering Facility: [facility] [place] Address: [address] [place] [address] Performed By: #### 2 4356-8 ####[facility] LABCLIA [id number] [address] STATES OF [facility] Glucose Test strip (U) [Mass/Vol] Negative Normal Negative [facility] Comment on above: Order Comment: Speci men Type: URINE SPECIMENOrdering Facility: [facility] [place] Address: [address] [place] [address] Performed By: #### 2 4356-8 ####[facility] LABCLIA [id number] [place] [address] [place] Hemoglobin Ql (U) Negative Normal Negative [facility] Comment on above: Order Comment: Speci men Type: URINE SPECIMENOrdering Facility: [facility] [place] Address: [address] [place] [address] Performed By: #### 2 4356-8 ####[facility] LABCLIA [id number] [facility] [address] [address] [place] Hyaline casts (Urine sed) [#/Area] 0 /[LPF] Normal 0 /LPF [facility] Comment on above: Order Comment: Speci men Type: URINE SPECIMENOrdering Facility: [facility] [place] Address: [address] [place] [address] Performed By: #### 2 4356-8 ####[facility] LABCLIA [id number] [address] [place] [address] [place] Ketones Ql (U) Negative Normal Negative [facility] Comment on above: Order Comment: Speci men Type: URINE SPECIMENOrdering Facility: [facility] [place] Address: [address] [place] [address] Performed By: #### 2 4356-8 ####[facility] LABCLIA [id number] [address], [facility]95 [place] Leukocyte esterase Test strip Ql (U) Negative Normal Negative [facility] Comment on above: Order Comment: Speci men Type: URINE SPECIMENOrdering Facility: [facility] [place] Address: [address] [place] [address] Performed By: #### 2 4356-8 ####[facility] LABCLIA [id number] [place] [address] [place] Nitrite Ql (U) Negative Normal Negative [facility] Comment on above: Order Comment: Speci men Type: URINE SPECIMENOrdering Facility: [facility] [place] Address: [address] [place] [address] Performed By: #### 2 4356-8 ####[facility] LABCLIA [id number] [place] [address] [place] pH (U) 8.0 [pH] Normal <8.5 [facility] Comment on above: Order Comment: Speci men Type: URINE SPECIMENOrdering Facility: [facility] [place] Address: [address] [place] [address] Performed By: #### 2 4356-8 ####[facility] LABCLIA [id number] [place] [id number] [place] Protein (U) [Mass/Vol] Negative Normal Negative [facility] Comment on above: Order Comment: Speci men Type: URINE SPECIMENOrdering Facility: [facility] [place] Address: [address] [place] [address] Performed By: #### 2 4356-8 ####[facility] LABCLIA [id number] [place] [address] [place] RBC LM.HPF (Urine sed) [#/Area] 0-2 /HPF Normal 0-2 /HPF [facility] Comment on above: Order Comment: Speci men Type: URINE SPECIMENOrdering Facility: [facility] [place] Address: [address] [place] [address] Performed By: #### 2 4356-8 ####[facility] LABIA [id number] [place] [address] [place] Specific gravity (U) [Rel density] 1.007 Normal 1.005-1.030 [facility] Comment on above: Order Comment: Speci men Type: URINE SPECIMENOrdering Facility: [facility] [place] Address: [address] [place] [address] Performed By: #### 2 4356-8 ####[facility] LABIA [id number] [place] [address] [place] Urobilinogen Ql (U) 0.2 EU/dL Normal 0.2-1.0 EU/dL [facility] Comment on above: Order Comment: Speci men Type: URINE SPECIMENOrdering Facility: [facility] [place] Address: [address] [place] [address] Performed By: #### 2 4356-8 ####[facility] LABIA [id number] [place] [address] [place] WBC LM.HPF (Urine sed) [#/Area] 0-5 /HPF Normal 0-5 /HPF [facility] Comment on above: Order Comment: Speci men Type: URINE SPECIMENOrdering Facility: [facility] [place] Address: [address] [place] [address] Performed By: #### 2 4356-8 ####[facility] LABIA [id number] [address] [place] CNOVon 09-28-2024 CNOV Office Visit (FAMPWS ) LAISA ([id number]) 1970 F Date Time Provider Department 09/28/24 [...] tablet by mouth at bedtime as needed. Zqmlipr-Zhooyhyjp-Cimn tab Take by mouth. cloNIDine HCl (CATAPRES) [...] once sid (more content not included)... Normal [facility] CNOVon 08-31-2024 CNOV Office Visit (MOLINAPWS ) ISA TOVAR ([id number]) 1970 F Date Time Provider Department 08/31/24 [...] tablet by mouth at bedtime as needed. Ftekhvm-Crjwsxlno-Eyst tab Take by mouth. No current facility-administered [...] record her BP 2x daily and send [employer] message in 2 weeks with results. Will likely increase at that point. 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 - CONSULT TO NEPHROLOGY - CHLORTHALIDONE 25 MG TABLET Haley (more content not included)... Normal [facility] ALDOSTERONE/DIRECT RENIN RAT IOon 08-26-2024 [place] RENIN RATIO 3.0 Normal <3.8 [facility] Comment on above: Order Comment: Howard gurrola Type: BLOOD SPECIMENOrdering Facility: [facility] [place] Address: [address] [place] [address] Result Comment: A ra tamie of aldosterone in ng/dL to direct renin in pg/mL greater than or equal to 3.8 is a positive screening test result for primary aldosteronism, when aldosterone is greater than or equal to 15 ng/dL. Performed By: #### A LDREN ####[facility] LABCLIA [id number] [place] [address] [place] Aldosterone [Mass/Vol] 20.0 ng/dL Normal 0.0-<35.4 [facility] Comment on above: Order Comment: Howard gurrola Type: BLOOD SPECIMENOrdering Facility: [facility] [place] Address: [address] [place] [address] Result Comment: The reference interval for serum/plasma [...] 15 ng/dL. Performed By: #### A LDREN ####[facility] LABCLIA [id number] [place] [address] [place] DIRECT RENIN 6.7 pg/mL Normal 3.6-81.6 [facility] Comment on above: Order Comment: Howard gurrola Type: BLOOD SPECIMENOrdering Facility: [facility] [place] Address: [address] [place] [address] Result Comment: The reference interval for direct [...] 15 ng/dL. Performed By: #### A LDREN ####[facility] LABCLIA [id number] [place] [address] [place] PATIENT UPRIGHT OR SUPINE Upright Normal [facility] Comment on above: Order Comment: Howard gurrola Type: BLOOD SPECIMENOrdering Facility: [facility] [place] Address: [address] [place] [address] Performed By: #### A LDREN ####[facility] LABCLIA [id number] [address] STATES OF [facility] US RENAL ARTERY [facility] n 08-25-2024 RENAL [facility] Non-Invasive Vascular Laboratory [facility] Renal or Mesenteric Duplex Bilateral/Complete Date of [...] Interpreting physician: Porfirio Taylor MD Final CC [employer] Medical Image : [id number] See Link below for Image [facility] 08-13-2024 [facility] Office Visit (FAMPWS ) ISA TOVAR ([id number]) 1970 F Date Time Provider Department 08/13/24 1:00 PM IZA SIMMS During your visit today, we recorded the following information about you: Pulse Respiration Blood pressure Weight 67/minute 14/minute 162/84 71.8 kg Iza Simms APRN.LAQUITA 08/13/2024 2:51 PM Signed Chief Complaint Patient presents with: b/p elavation in er HPI Isa Tovar is a 54 year old female who presents here today for Above Complaints. Lupe is an established patient of Dr. Chiki DO. Concerns today... ER follow-up -- [facility] ER visit on 08/07 d/t elevated BP. [...] tablet by mouth at bedtime as needed. Bsvmczs-Bobakxpry-Iddo tab Take by mouth. No current facility-administered [...] Lipid Sc (more content not included)... Normal [facility] 08-13-2024 [place] Telephone (FAMPWS) LAISA ([id number]) 1970 F Date Time Provider Department 08/13/24 IZA SIMMS During your visit today, we recorded the following information about you: Iza Simms APRN.REGISTER CLERK 08/13/2024 2:52 PM Signed Please call patient and let her know that I did decide to add on some lab work and an US of kidneys due to resistant HTN work-up. Please help her schedule this and have her get lab work done sometime before follow-up appointment. Thank you, Iza Simms APRN.REGISTER CLERK Bernadette Daily MA 08/13/2024 3:48 PM Signed Pt informed Please schedule US MINDI Mantilla Kaitlyn 08/14/2024 9:00 AM Signed Called patient and scheduled as directed Allergies As of Date: 08/13/2024 Noted Allergy Reaction AMLODIPINE 07/29/2024 5 - Intolerance Comments: Pedal edema LISINOPRIL 06/02/2024 3 - Cough Date Reviewed: 08/13/2024 Reviewed by: Iza Simms APRN.REGISTER CLERK - Fully Assessed Reason for Visit: Results [...] by mouth at bedtime as needed. - Zgbcuhy-Dpdyuuadz-Bonx tab Take by mouth. Problem List As Of Date 08/13/2024 Noted Resolved Dysthymia [F34.1] 08/23/2015 Well adult exam [Z00.00] 08/23/2015 Acid reflux [K21.9] 08/20/2022 Encounter Status:Closed by IZA SIMMS on 08/27/24 Normal [facility] 12 Lead EKGon 08-07-2024 12 Lead EKG [facility] [address] [place] [address] 12 Lead EKG 08/07/24 1802 MR#: [id number] Acct: [id number] Name: ISA TOVAR Rep #: [id number] : 1970 54 From: Vadim Castelan MD [...] Abnormal ECG Confirmed by MIRTA PECK, TAYLA ([id number]), video news editor PEARL GILBERT ([id number]) on 08/09/2024 10:50:43 AM Referred By: Confirmed By: TAYLA CASTELAN MD 08/09/24 1050 Date Vadim Castelan MD CC: Dr. Karl العراقي DO; Dr. Brandon Monet DO Signed Normal [facility] Absolute neutrophil countOrd ered By: Karl العراقي on 08-07-2024 Neutrophils (Bld) [#/Vol] 2.8 10*3/uL 2.0-7.7 [facility] Basic Metabolic Profile (BMP )on 08-07-2024 BUN/CRE 10.6 RATIO Normal 10-20 [facility] Comment on above: Order Comment: 'TROP ' Serial specimen #1, #2 or #3: 1 Performed By: #### L 100.0100, L500.2500, L501.5200 #### [facility] [address] [place], [address] CA,Total 9.7 mg/dL Normal 8.5-10.1 [facility] Comment on above: Order Comment: 'TROP ' Serial specimen #1, #2 or #3: 1 Performed By: #### L 100.0100, L500.2500, L501.5200 #### [facility] [address] [place], [address] Chloride [Moles/Vol] 101 mmol/L Normal 98-107 [facility] Comment on above: Order Comment: 'TROP ' Serial specimen #1, #2 or #3: 1 Performed By: #### L 100.0100, L500.2500, L501.5200 #### [facility] [address] [place], [address] CO2 [Moles/Vol] 25.0 mmol/L Normal 21.0-32.0 [facility] Comment on above: Order Comment: 'TROP ' Serial specimen #1, #2 or #3: 1 Performed By: #### L 100.0100, L500.2500, L501.5200 #### [facility] [address] [place], [address] Creatinine [Mass/Vol] 0.76 mg/dL Normal 0.55-1.02 [facility] Comment on above: Order Comment: 'TROP ' Serial specimen #1, #2 or #3: 1 Result Comment: The validity of the calculated GFR GFRAA in patients over 70 years has not been determined. Clinical correlation is essential. Performed By: #### L 100.0100, L500.2500, L501.5200 #### [facility] [address] [place], [address] ECRCL 82.29 ml/min Normal [facility] Comment on above: Order Comment: 'TROP ' Serial specimen #1, #2 or #3: 1 Performed By: #### L 100.0100, L500.2500, L501.5200 #### [facility] [address] [place], [address] EST GFR - AA 102 mL/min Normal >60 [facility] Comment on above: Order Comment: 'TROP ' Serial specimen #1, #2 or #3: 1 Result Comment: Afri can Marshallese GFR Calc Performed By: #### L 100.0100, L500.2500, L501.5200 #### [facility] [address] [place], [address] GAP 8 Normal 5-15 [facility] Comment on above: Order Comment: 'TROP ' Serial specimen #1, #2 or #3: 1 Performed By: #### L 100.0100, L500.2500, L501.5200 #### [facility] [address] [place], [address] GFR/1.73 sq M.predicted among non-blacks MDRD (S/P/Bld) [Vol rate/Area] 85 mL/min/{1.73_m2} Normal >60 [facility] Comment on above: Order Comment: 'TROP ' Serial specimen #1, #2 or #3: 1 Result Comment: Non- GFR Calc Performed By: #### L 100.0100, L500.2500, L501.5200 #### [facility] [address] [place], [address] Glucose [Mass/Vol] 79 mg/dL Normal 74-106 [facility] Comment on above: Order Comment: 'TROP ' Serial specimen #1, #2 or #3: 1 Performed By: #### L 100.0100, L500.2500, L501.5200 #### [facility] [address] [place], [address] Potassium [Moles/Vol] 3.6 mmol/L Normal 3.5-5.1 [facility] Comment on above: Order Comment: 'TROP ' Serial specimen #1, #2 or #3: 1 Performed By: #### L 100.0100, L500.2500, L501.5200 #### [facility] [address] [place], [address] Sodium [Moles/Vol] 134 mmol/L Low 136-145 [facility] Comment on above: Order Comment: 'TROP ' Serial specimen #1, #2 or #3: 1 Performed By: #### L 100.0100, L500.2500, L501.5200 #### [facility] [address] [place], [address] Urea nitrogen [Mass/Vol] 8 mg/dL Normal -18 [facility] Comment on above: Order Comment: 'TROP ' Serial specimen #1, #2 or #3: 1 Performed By: #### L 100.0100, L500.2500, L501.5200 #### [facility] [address] [place], [address] Basophil percentageOrdered B y: Karl العراقي on 08-07-2024 Basophils/100 WBC (Bld) 1.0 % 0-1 [facility] Blood urea nitrogen (BUN)/cr eatinine ratioOrdered By: Karl العراقي on 08-07-2024 Urea nitrogen/Creatinine [Mass ratio] 10.6 mg/mg 10-20 [facility] CBC W/Diff, Automatedon 07-21 Absolute Lymph 1.53 X10 3/uL Normal 0.83-4.51 [facility] Comment on above: Performed By: #### L 100.0100, L500.2500, L501.4020 #### [facility] [address] [place], [address] Absolute Neut 2.8 X10 3/uL Normal 2.0-7.7 [facility] Comment on above: Performed By: #### L 100.0100, L500.2500, L501.4020 #### [facility] [address] [place], [address] Basophils/100 WBC (Bld) 1.0 % Normal 0-1 [facility] Comment on above: Performed By: #### L 100.0100, L500.2500, L501.4020 #### [facility] [address] [place], [address] Eosinophils/100 WBC (Bld) 2.7 % Normal 0-5 [facility] Comment on above: Performed By: #### L 100.0100, L500.2500, L501.4020 #### [facility] [address] [place], [address] Erythrocyte distribution width (RBC) [Ratio] 12.6 % Normal 11.6-14.6 [facility] Comment on above: Performed By: #### L 100.0100, L500.2500, L501.4020 #### [facility] [address] [place], [address] Hematocrit (Bld) [Volume fraction] 35.4 % Low 37-47 [facility] Comment on above: Performed By: #### L 100.0100, L500.2500, L501.4020 #### [facility] [address] [place], [address] Hemoglobin (Bld) [Mass/Vol] 12.2 g/dL Normal 12.0-15.0 [facility] Comment on above: Performed By: #### L 100.0100, L500.2500, L501.4020 #### [facility] [address] [place], [address] IG% 0.000 Normal 0.0-0.9 [facility] Comment on above: Result Comment: IG% - Immature Granulocytes (promyelocytes, myelocytes and metamyelocytes) > 1% indicates that a LEFT SHIFT is Present. Performed By: #### L 100.0100, L500.2500, L501.4020 #### [facility] [address] [place], [address] Lymphocytes/100 WBC (Bld) 31.5 % Normal 19-41 [facility] Comment on above: Performed By: #### L 100.0100, L500.2500, L501.4020 #### [facility] [address] [place], [address] MCH (RBC) [Entitic mass] 32.4 pg High 27.0-32.0 [facility] Comment on above: Performed By: #### L 100.0100, L500.2500, L501.4020 #### [facility] [address] [place], [address] MCHC (RBC) [Mass/Vol] 34.5 g/dL Normal 32-36 [facility] Comment on above: Performed By: #### L 100.0100, L500.2500, L501.4020 #### [facility] [address] [place], [address] MCV (RBC) [Entitic vol] 93.9 fL Normal 81-99 [facility] Comment on above: Performed By: #### L 100.0100, L500.2500, L501.4020 #### [facility] [address] [place], [address] Monocytes/100 WBC (Bld) 7.4 % Normal 0-10 [facility] Comment on above: Performed By: #### L 100.0100, L500.2500, L501.4020 #### [facility] [address] [place], [address] Neutrophils/100 WBC (Bld) 57.4 % Normal 47-70 [facility] Comment on above: Performed By: #### L 100.0100, L500.2500, L501.4020 #### [facility] [address] [place], [address] Nucleated RBC (Bld) [#/Vol] 0 10*3/uL Normal 0-5 [facility] Comment on above: Performed By: #### L 100.0100, L500.2500, L501.4020 #### [facility] [address] [place], [address] Platelet mean volume (Bld) [Entitic vol] 9.0 fL Normal 6.2-12.0 [facility] Comment on above: Performed By: #### L 100.0100, L500.2500, L501.4020 #### [facility] [address] [place], [address] Platelets (Bld) [#/Vol] 273 10*3/uL Normal 150-450 [facility] Comment on above: Performed By: #### L 100.0100, L500.2500, L501.4020 #### [facility] [address] [place], [address] RBC (Bld) [#/Vol] 3.77 10*6/uL Low 4.2-5.4 [facility] Comment on above: Performed By: #### L 100.0100, L500.2500, L501.4020 #### [facility] [address] [place], [address] RDW SD 43.8 fl Normal 35.1-43.9 [facility] Comment on above: Performed By: #### L 100.0100, L500.2500, L501.4020 #### [facility] [address] [place], [address] WBC (Bld) [#/Vol] 4.9 10*3/uL Normal 4.4-11.0 [facility] Comment on above: Performed By: #### L 100.0100, L500.2500, L501.4020 #### [facility] [address] [place], [address] Carbon dioxide measurementOr dered By: Karl العراقي on 08-07-2024 CO2 [Moles/Vol] 25.0 mmol/L 21.0-32.0 [facility] Chest 1 View (Portable)on Chest 1 View (Portable) [facility] Imaging Services [address] [place] [address] Chest 1 View (Portable) MR#: [id number] Acct: [id number] Name: ISA TOVAR Rep #: [id number] : 1970 F 54 From: Raoul Miller MD PCP: Dr. Brandon Monet, DO Status: DEP ER Study: Chest 1 View (Portable) Date of Exam: 08/07/24 Exam# [id number] Ordering Dr: Karl العراقي DO [id number] EXAM: XR CHEST, 1 VIEW CLINICAL INDICATION: [...] Karl العراقي, ; Dr. Brandon Monet DO Homicide Squad Lieutenant: Signed Normal [facility] Chloride measurementOrdered By: Karl العراقي on 08-07-2024 Chloride [Moles/Vol] 101 mmol/L 98-107 [facility] Emergency Department Summary on 08-07-2024 Emergency Department Summary [facility] Medical Records Department [address] [place] [address] Emergency Department Summary 08/07/24 MR#: [id number] Acct: [id number] Name: ISA TOVAR Rep #: [id number] : 1970 54 From: Karl العراقي DO [...] intact Psych: Cooperative, appropriate mood and [facility] History (Updated 08/07/24 @ 18:32 by [...] % (Auto) 57.4 Lymph % (Auto) 31.5 [place] % (Auto) 7.4 (more content not included)... Normal [facility] Eosinophil percentageOrdered By: Karl العراقي on 08-07-2024 Eosinophils/100 WBC (Bld) 2.7 % 0-5 [facility] Erythrocyte distribution wid th ratioOrdered By: Karl العراقي on 08-07-2024 Erythrocyte distribution width (RBC) [Ratio] 12.6 % 11.6-14.6 [facility] Erythrocyte distribution wid th standard deviationOrdered By: Karl Downs on 08-07-2024 Erythrocyte distribution width (RBC) [Entitic vol] 43.8 fL 35.1-43.9 [facility] Estimated glomerular filtrat ion rate (GFR) AmericanOrdered By: Karl العراقي on 08-07-2024 Estimated GFR (MDRD) Amer 102 mL/min >60 [facility] Comment on above: GFR Calc Estimation of creatinine pedro aranceOrdered By: Karl العراقي on 08-07-2024 Estimated Creatinine Clearance Calc 82.29 ml/min [facility] Glomerular filtration rate ( GFR) estimationOrdered By: Karl العراقي on 08-07-2024 Estimated GFR (MDRD) Non-Af Amer 85 mL/min >60 [facility] Comment on above: Non- GFR Calc Glucose measurementOrdered B y: Karl العراقي on 08-07-2024 Glucose [Mass/Vol] 79 mg/dL 74-106 [facility] Hematocrit Auto (Bld) [Volum e fraction]Ordered By: Karl العراقي on 08-07-2024 Hematocrit (Bld) [Volume fraction] 35.4 % Low 37-47 [facility] Hemoglobin measurementOrdere d By: [facility] on 08-07-2024 Hemoglobin (Bld) [Mass/Vol] 12.2 g/dL 12.0-15.0 [facility] Immature granulocytes/100 WB C Auto (Bld)Ordered By: [place] Dulce Maria on 08-07-2024 Immature granulocytes/100 WBC (Bld) 0.000 % 0.0-0.9 [facility] Comment on above: IG% - Immature Granu locytes (promyelocytes, myelocytes and metamyelocytes) > 1% indicates that a LEFT SHIFT is Present. L501.4020on 08-07-2024 TROPONIN-I HS 4 pg/mL Normal 3.0-54.0 [facility] Comment on above: Order Comment: 'TROP ' Serial specimen #1, #2 or #3: 1 Result Comment: Plea se Note: New Test Units and Gender Specific Reference Ranges. For more information see Policy Stat Procedure [place] High Sensitivity Troponin (TNIH) and attachments. Performed By: #### L 100.0100, L500.2500, L501.5200 #### [facility] [address] [place], [address] Lymphocytes Auto (Unsp spec) [#/Vol]Ordered By: Karl العراقي on 08-07-2024 Lymphocytes (Bld) [#/Vol] 1.53 10*3/uL 0.83-4.51 [facility] Lymphocytes/100 WBC Auto (Un sp spec)Ordered By: Karl العراقي on 08-07-2024 Lymphocytes/100 WBC (Bld) 31.5 % 19-41 [facility] MCV (mean corpuscular volume ) determinationOrdered By: Karl العراقي on 08-07-2024 MCV (RBC) [Entitic vol] 93.9 fL 81-99 [facility] Mean corpuscular hemoglobin (MCH) determinationOrdered By: Karl العراقي on 08-07-2024 MCH (RBC) [Entitic mass] 32.4 pg High 27.0-32.0 [facility] Mean corpuscular hemoglobin concentration (MCHC) determinationOrdered By: Karl العرايق on 08-07-2024 MCHC (RBC) [Mass/Vol] 34.5 g/dL 32-36 [facility] Mean platelet volume determi nationOrdered By: Karl العراقي on 08-07-2024 Platelet mean volume (Bld) [Entitic vol] 9.0 fL 6.2-12.0 [facility] Monocyte percentageOrdered B y: Karl العراقي on 08-07-2024 Monocytes/100 WBC (Bld) 7.4 % 0-10 [facility] Neutrophil percentageOrdered By: Karl العراقي on 08-07-2024 Neutrophils/100 WBC (Bld) 57.4 % 47-70 [facility] Nucleated red blood cell per centageOrdered By: Karl العراقي on 08-07-2024 Nucleated RBC/100 WBC (Bld) [Ratio] 0 % 0-5 [facility] Platelet countOrdered By: Braeden العراقي on 08-07-2024 Platelets (Bld) [#/Vol] 273 10*3/uL 150-450 [facility] Potassium measurementOrdered By: Karl العراقي on 08-07-2024 Potassium [Moles/Vol] 3.6 mmol/L 3.5-5.1 [facility] RBC Auto (Bld) [#/Vol]Ordere d By: Karl العراقي on 08-07-2024 RBC (Bld) [#/Vol] 3.77 10*6/uL Low 4.2-5.4 [facility] Serum anion gap measurementO rdered By: Karl العراقي on 08-07-2024 Anion gap [Moles/Vol] 8 mmol/L 12-02 [facility] Serum or plasma calcium ramon urement (mass/volume)Ordered By: Karl Downs on 08-07-2024 Calcium [Mass/Vol] 9.7 mg/dL 8.5-10.1 [facility] Serum or plasma creatinine m easurement (mass/volume)Ordered By: Karl Downs on 08-07-2024 Creatinine [Mass/Vol] 0.76 mg/dL 0.55-1.02 [facility] Comment on above: The validity of the calculated GFR & GFRAA in patients over 70 years has not been determined. Clinical correlation is essential. Serum or plasma urea nitroge n measurement (mass/volume)Ordered By: Karl العراقي on 08-07-2024 Urea nitrogen [Mass/Vol] 8 mg/dL 02-04 [facility] Sodium levelOrdered By: Isrrael العراقي on 08-07-2024 Sodium [Moles/Vol] 134 mmol/L Low 136-145 [facility] Troponin IOrdered By: Karl العراقي on 08-07-2024 Troponin I High Sensitivity 4 pg/mL 3.0-54.0 [facility] Comment on above: Please Note: New [place] t Units and Gender Specific Reference Ranges. For more information see Policy Stat Procedure [place] High Sensitivity Troponin (TNIH) and attachments. White blood cell (WBC) count Ordered By: Karl العراقي on 08-07-2024 WBC (Bld) [#/Vol] 4.9 10*3/uL 4.4-11.0 [facility] CNOVon 07-29-2024 CNOV Office Visit (FAMPWS ) ISA TOVAR ([id number]) 1970 F Date Time Provider Department 07/29/24 12:00 PM IVORY ESPINOZA RUPA During your visit today, we recorded the following information about you: Pulse Blood pressure Weight 61/minute 154/88 70.9 kg AlexisIvory APRN.REGISTER CLERK 07/29/2024 3:49 PM Signed Chief Complaint Patient [...] tablet by mouth at bedtime as needed. Tshsnuy-Mdkgxtvns-Dndk tab Take by mouth. No current facility-administered [...] Increase losartan to 50mg daily. Will send [employer] message in 2 weeks with update of [...] MG CAPS (more content not included)... Normal [facility] CNOVon 07-01-2024 CNOV Office Visit (RUPA ) ISA TOVAR ([id number]) 1970 F Date Time Provider Department 07/01/24 12:40 PM IVORY ESPIONZA During your visit today, we recorded the [...] tablet by mouth at bedtime as needed. Cqakavi-Hjnukxzuv-Qtdm tab Take by mouth. No current facility-administered [...] Begin losartan 25mg daily. She will send [employer] message in 2 weeks with BP results. [...] Date Reviewed: 07/01/2024 Reviewed by: Ivory Espinoza APRN.REGISTER CLERK - Fully Assessed Reason for Visit: BP Check [142] Primary Visit Diagnosis:Primary hypertension [I10] Other Visit Diagnosis:Dysthymia [F34.1] Order(s):losartan (COZAAR) 25 mg tabletTake 1 tablet by mouth once daily.Disp: 30 tabletRfl: 2 amLODIPine (NORVASC) 10 (more content not included)... Normal [facility] CNOVon 06-02-2024 CNOV Office Visit (FAMPWS ) ISA TOVAR ([id number]) 1970 F Date Time Provider Department 06/02/24 3:40 PM IVORY ESPINOZA During your visit today, we recorded the following information about you: Pulse Respiration Blood pressure Weight 89/minute 16/minute 163/96 70 kg Bernadette Daily MA 06/02/2024 3:38 PM Signed 06/02/2024: Home BP Cuff Validated. Home BP: 186/96 Office BP: 188/110 Bernadette Daily MA Ivory Espinoza APRN.REGISTER CLERK 06/02/2024 6:09 PM Signed Chief Complaint Patient [...] tablet by mouth at bedtime as needed. Jvubygi-Fuglsjwan-Ppwa tab Take by mouth. No current facility-administered [...] Will send BP and HR results via [facility] in 1 week. Suspect will need to increase amlodipine at that time. F/u in the office in 1 month. - AMLODIPINE 5 MG TABLET Ivory Espinoza APRN.Ivory Alcantar APRN.CNP 06/02/2024 4:21 PM Addendum Stop the lisinopril, start the amlodipine (Norvasc). Send me your BP and heart rates in a week through [employer]. Allergies As of Date: 06/02/2024 Noted Allergy Reaction LISINOPRIL 06/02/2024 3 - Cough Date Reviewed: 06/02/2024 Reviewed by: Ivory Espinoza APRN.CNP - Fully Assessed Reason for Visit: BP Check [142] Cmt: Recently in ER 05/30 for hypertension, taking 40mg of lisinopril, br (more content not included)... Normal [facility] 12 Lead EKGon 05-30-2024 12 Lead EKG [facility] Cardiovascular Services [address] [place] [address] 12 Lead EKG 05/30/24 1228 MR#: [id number] Acct: [id number] Name: ISA TOVAR Rep #: [id number] : 1970 54 From: Mike Scott MD Attending Dr: Status: DEP ER Ordering Dr: Mathew Montaño DATA CONTROL ASSISTANT-Vijay Date: 05/30/24 Location: ED Sex: F C [...] Abnormal ECG Confirmed by MIKE SCOTT MD ([id number]), video news editor KARIE JARA ([id number]) on 05/31/2024 10:19:57 AM Referred By: Confirmed By: MIKE SCOTT MD 05/31/24 1019 Date Mike Scott MD CC: DATA CONTROL ASSISTANT-C Mathew Montaño; Dr. Karl العراقي DO; Dr. Brandon Monet DO Signed Normal [facility] CBC W/Diff, Automatedon 11-1 0-2024 Absolute Lymph 0.88 X10 3/uL Normal 0.83-4.51 [facility] Comment on above: Performed By: #### L 100.0100, L500.2500, L501.5200 #### [facility] [address] [place], [address] Absolute Neut 3.1 X10 3/uL Normal 2.0-7.7 [facility] Comment on above: Performed By: #### L 100.0100, L500.2500, L501.5200 #### [facility] [address] [place], [address] Basophils/100 WBC (Bld) 0.7 % Normal 0-1 [facility] Comment on above: Performed By: #### L 100.0100, L500.2500, L501.5200 #### [facility] [address] [place], [address] Eosinophils/100 WBC (Bld) 2.2 % Normal 0-5 [facility] Comment on above: Performed By: #### L 100.0100, L500.2500, L501.5200 #### [facility] [address] [place], [address] Erythrocyte distribution width (RBC) [Ratio] 12.0 % Normal 11.6-14.6 [facility] Comment on above: Performed By: #### L 100.0100, L500.2500, L501.5200 #### [facility] [address] [place], [address] Hematocrit (Bld) [Volume fraction] 37.1 % Normal 37-47 [facility] Comment on above: Performed By: #### L 100.0100, L500.2500, L501.5200 #### [facility] [address] [place], [address] Hemoglobin (Bld) [Mass/Vol] 12.8 g/dL Normal 12.0-15.0 [facility] Comment on above: Performed By: #### L 100.0100, L500.2500, L501.5200 #### [facility] [address] [place], [address] IG% 0.400 Normal 0.0-0.9 [facility] Comment on above: Result Comment: IG% - Immature Granulocytes (promyelocytes, myelocytes and metamyelocytes) > 1% indicates that a LEFT SHIFT is Present. Performed By: #### L 100.0100, L500.2500, L501.5200 #### [facility] [address] [place], [address] Lymphocytes/100 WBC (Bld) 19.3 % Normal 19-41 [facility] Comment on above: Performed By: #### L 100.0100, L500.2500, L501.5200 #### [facility] [address] [place], [address] MCH (RBC) [Entitic mass] 32.6 pg High 27.0-32.0 [facility] Comment on above: Performed By: #### L 100.0100, L500.2500, L501.5200 #### [facility] [address] [place], [address] MCHC (RBC) [Mass/Vol] 34.5 g/dL Normal 32-36 [facility] Comment on above: Performed By: #### L 100.0100, L500.2500, L501.5200 #### [facility] [address] [place], [address] MCV (RBC) [Entitic vol] 94.4 fL Normal 81-99 [facility] Comment on above: Performed By: #### L 100.0100, L500.2500, L501.5200 #### [facility] [address] [place], [address] Monocytes/100 WBC (Bld) 8.8 % Normal 0-10 [facility] Comment on above: Performed By: #### L 100.0100, L500.2500, L501.5200 #### [facility] [address] [place], [address] Neutrophils/100 WBC (Bld) 68.6 % Normal 47-70 [facility] Comment on above: Performed By: #### L 100.0100, L500.2500, L501.5200 #### [facility] [address] [place], [address] Nucleated RBC (Bld) [#/Vol] 0 10*3/uL Normal 0-5 [facility] Comment on above: Performed By: #### L 100.0100, L500.2500, L501.5200 #### [facility] [address] [place], [address] Platelet mean volume (Bld) [Entitic vol] 9.2 fL Normal 6.2-12.0 [facility] Comment on above: Performed By: #### L 100.0100, L500.2500, L501.5200 #### [facility] [address] [place], [address] Platelets (Bld) [#/Vol] 270 10*3/uL Normal 150-450 [facility] Comment on above: Performed By: #### L 100.0100, L500.2500, L501.5200 #### [facility] [address] [place], [address] RBC (Bld) [#/Vol] 3.93 10*6/uL Low 4.2-5.4 [facility] Comment on above: Performed By: #### L 100.0100, L500.2500, L501.5200 #### [facility] [address] [place], [address] RDW SD 42.4 fl Normal 35.1-43.9 [facility] Comment on above: Performed By: #### L 100.0100, L500.2500, L501.5200 #### [facility] [address] [place], [address] WBC (Bld) [#/Vol] 4.6 10*3/uL Normal 4.4-11.0 [facility] Comment on above: Performed By: #### L 100.0100, L500.2500, L501.5200 #### [facility] [address] [place] [place], [address] Chest PA and Lateralon 05-30 Chest PA and Lateral [facility] Imaging Services [address] [place] [address] Chest PA and Lateral MR#: [id number] Acct: [id number] Name: ISA TOVAR Rep #: [id number] : 1970 F 54 From: Isaac Lee PCP: Dr. Brandon Monet, Status: DEP ER Study: Chest PA and Lateral Date of Exam: 05/30/24 Exam# [id number] Ordering Dr: Mathew Montaño DATA CONTROL ASSISTANT-C [id number] EXAM: XR CHEST, 2 VIEWS CLINICAL INDICATION: [...] , CC: NASIM Montaño; Dr. Brandon Monet, Homicide Squad Lieutenant: Signed Normal [facility] Comprehensive Metabolic Prof ilrina 05-30-2024 Albumin [Mass/Vol] 3.8 g/dL Normal 3.2-5.0 [facility] Comment on above: Order Comment: 'TROP ' Serial specimen #1, #2 or #3: 1 Performed By: #### L 100.0100, L500.2500, L501.5200 #### [facility] [address] [place], [address] Albumin/Globulin [Mass ratio] 1.1 {ratio} Normal 0.9-2.4 [facility] Comment on above: Order Comment: 'TROP ' Serial specimen #1, #2 or #3: 1 Performed By: #### L 100.0100, L500.2500, L501.5200 #### [facility] [address] [place], [address] ALK P 96 U/L Normal 45-117 [facility] Comment on above: Order Comment: 'TROP ' Serial specimen #1, #2 or #3: 1 Performed By: #### L 100.0100, L500.2500, L501.5200 #### [facility] [address] [place], [address] ALT [Catalytic activity/Vol] 24 U/L Normal 13-56 [facility] Comment on above: Order Comment: 'TROP ' Serial specimen #1, #2 or #3: 1 Performed By: #### L 100.0100, L500.2500, L501.5200 #### [facility] [address] [place], [address] AST [Catalytic activity/Vol] 20 U/L Normal 15-37 [facility] Comment on above: Order Comment: 'TROP ' Serial specimen #1, #2 or #3: 1 Performed By: #### L 100.0100, L500.2500, L501.5200 #### [facility] [address] [place], [address] Bilirubin [Mass/Vol] 0.50 mg/dL Normal 0.20-1.00 [facility] Comment on above: Order Comment: 'TROP ' Serial specimen #1, #2 or #3: 1 Result Comment: For patients on eltrombopag therapy, use of Dimension [place] TBIL is not recommended. Performed By: #### L 100.0100, L500.2500, L501.5200 #### [facility] [address] [place], [address] BUN/CRE 10.7 RATIO Normal 10-20 [facility] Comment on above: Order Comment: 'TROP ' Serial specimen #1, #2 or #3: 1 Performed By: #### L 100.0100, L500.2500, L501.5200 #### [facility] [address] [place], [address] CA,Total 9.2 mg/dL Normal 8.5-10.1 [facility] Comment on above: Order Comment: 'TROP ' Serial specimen #1, #2 or #3: 1 Performed By: #### L 100.0100, L500.2500, L501.5200 #### [facility] [address] [place], [address] Chloride [Moles/Vol] 100 mmol/L Normal 98-107 [facility] Comment on above: Order Comment: 'TROP ' Serial specimen #1, #2 or #3: 1 Performed By: #### L 100.0100, L500.2500, L501.5200 #### [facility] [address] [place], [address] CO2 [Moles/Vol] 27.0 mmol/L Normal 21.0-32.0 [facility] Comment on above: Order Comment: 'TROP ' Serial specimen #1, #2 or #3: 1 Performed By: #### L 100.0100, L500.2500, L501.5200 #### [facility] [address] [place], [address] Creatinine [Mass/Vol] 0.74 mg/dL Normal 0.55-1.02 [facility] Comment on above: Order Comment: 'TROP ' Serial specimen #1, #2 or #3: 1 Result Comment: The validity of the calculated GFR GFRAA in patients over 70 years has not been determined. Clinical correlation is essential. Performed By: #### L 100.0100, L500.2500, L501.5200 #### [facility] [address] [place], [address] ECRCL 84.52 ml/min Normal [facility] Comment on above: Order Comment: 'TROP ' Serial specimen #1, #2 or #3: 1 Performed By: #### L 100.0100, L500.2500, L501.5200 #### [facility] [address] [place], [address] EST GFR - AA 104 mL/min Normal >60 [facility] Comment on above: Order Comment: 'TROP ' Serial specimen #1, #2 or #3: 1 Result Comment: Afri can Marshallese GFR Calc Performed By: #### L 100.0100, L500.2500, L501.5200 #### [facility] [address] [place], [address] GAP 7 Normal 5-15 [facility] Comment on above: Order Comment: 'TROP ' Serial specimen #1, #2 or #3: 1 Performed By: #### L 100.0100, L500.2500, L501.5200 #### [facility] [address] [place], [address] GFR/1.73 sq M.predicted among non-blacks MDRD (S/P/Bld) [Vol rate/Area] 86 mL/min/{1.73_m2} Normal >60 [facility] Comment on above: Order Comment: 'TROP ' Serial specimen #1, #2 or #3: 1 Result Comment: Non- GFR Calc Performed By: #### L 100.0100, L500.2500, L501.5200 #### [facility] [address] [place], [address] Globulin (S) [Mass/Vol] 3.4 g/dL Normal 2.2-4.2 [facility] Comment on above: Order Comment: 'TROP ' Serial specimen #1, #2 or #3: 1 Performed By: #### L 100.0100, L500.2500, L501.5200 #### [facility] [address] [place], [address] Glucose [Mass/Vol] 90 mg/dL Normal 74-106 [facility] Comment on above: Order Comment: 'TROP ' Serial specimen #1, #2 or #3: 1 Performed By: #### L 100.0100, L500.2500, L501.5200 #### [facility] [address] [place], [address] Potassium [Moles/Vol] 3.8 mmol/L Normal 3.5-5.1 [facility] Comment on above: Order Comment: 'TROP ' Serial specimen #1, #2 or #3: 1 Performed By: #### L 100.0100, L500.2500, L501.5200 #### [facility] [address] [place], [address] Sodium [Moles/Vol] 133 mmol/L Low 136-145 [facility] Comment on above: Order Comment: 'TROP ' Serial specimen #1, #2 or #3: 1 Performed By: #### L 100.0100, L500.2500, L501.5200 #### [facility] [address] [place], [address] T PROT 7.2 g/dL Normal 6.4-8.2 [facility] Comment on above: Order Comment: 'TROP ' Serial specimen #1, #2 or #3: 1 Performed By: #### L 100.0100, L500.2500, L501.5200 #### [facility] [address] [place], [address] Urea nitrogen [Mass/Vol] 8 mg/dL Normal 7-18 [facility] Comment on above: Order Comment: 'TROP ' Serial specimen #1, #2 or #3: 1 Performed By: #### L 100.0100, L500.2500, L501.5200 #### [facility] [address] [place], [address] Emergency Department Summary on 05-30-2024 Emergency Department Summary [facility] Medical Records Department [address] [place] [address] Emergency Department Summary 05/30/24 MR#: [id number] Acct: [id number] Name: ISA TOVAR Rep #: [id number] : 1970 54 From: Karl العراقي DO PCP: Dr. Brandon Monet, DO Status:[facility] ER Location: ED [facility] History of Present Illness Chief Complaint: [...] Room Air (more content not included)... Normal [facility] L501.4020on 05-30-2024 TROPONIN-I HS 4 pg/mL Normal 3.0-54.0 [facility] Comment on above: Order Comment: 'TROP ' Serial specimen #1, #2 or #3: 1 Result Comment: Carlos thacker Note: New Test Units and Gender Specific Reference Ranges. For more information see Policy Stat Procedure [place] High Sensitivity Troponin (TNIH) and attachments. Performed By: #### L 100.0100, L500.2500, L501.5200 #### [facility] [address] [place], [address] Urinalysis, Completeon 05-30 BACTERIA 0 SEEN Normal None Seen [facility] Comment on above: Order Comment: CLEAN CATCH Performed By: #### L 100.0100, L500.2500, L501.5200 #### [facility] [address] [place], [address] EPI,SQUAMOUS 0 SEEN Normal 5- [facility] Comment on above: Order Comment: CLEAN CATCH Performed By: #### L 100.0100, L500.2500, L501.5200 #### [facility] [address] [place], [address] Mucus Ql (Urine sed) 0 SEEN Normal [facility] Comment on above: Order Comment: CLEAN CATCH Performed By: #### L 100.0100, L500.2500, L501.5200 #### [facility] [address] [place], [address] RBC 0 SEEN Normal 0-5 [facility] Comment on above: Order Comment: CLEAN CATCH Performed By: #### L 100.0100, L500.2500, L501.5200 #### [facility] [address] [place], [address] WBC 0 SEEN Normal 0-5 [facility] Comment on above: Order Comment: CLEAN CATCH Performed By: #### L 100.0100, L500.2500, L501.5200 #### [facility] [address] 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 Has appt with [facility] next Friday for her [...] tablet by mouth at bedtime as needed. Ivcdwjp-Jonjwtesj-Ykml tab Take by mouth. No current facility-administered [...] continue brace, use sling prn Is seeing [facility] next week 05/12. Will see if they can possibly see her any sooner d (more content not included)... Normal [facility] ZAX23ob 05-05-2024 ECG01 Ventricular Rate : 6 3 BPM Atrial Rate : 63 BPM P-R Interval : 142 ms QRS Duration : 80 ms Q-T Interval : 434 ms QTC Calculation(Bazett) : 444 ms Calculated P [place] : 22 degrees Calculated R [place] : 66 degrees Calculated T [place] : 54 degrees NORMAL SINUS RHYTHM NORMAL ECG Confirmed by MD CHENG GREGORY () on 05/06/2024 8:33:31 AM NAME : ISA TOVAR PID : [id number] : 1970 Gender : Female Race : ORD : Procedure Date : May 05 2024 16:13:32 Edit Date : May 06 2024 08:33:34 Diagnosis: NORMAL SINUS RHYTHM NORMAL ECG Confirmed by MD CHENG GREGORY () on 05/06/2024 8:33:31 AM Test Reason : Location : 185 : [facility] Overread By : MD CHENG GREGORY Edited By : MD CHENG GREGORY Referred By : Alexis, Acquired by : Calin daily [facility] XR CHEST 2V FRONTAL/LATon XR CHEST [...] tissues: Unremarkable. IMPRESSION: No acute radiographic abnormality. Homicide Squad Lieutenant: [employer] Transcribe Date/Time: May 05 2024 5:14P Dictated by : KEARA LION MD This examination was interpreted and the report reviewed and electronically signed by: KEARA LION MD on May 05 2024 5:15PM EST [id number] Normal [facility] XR Chest PA and Lateralon IMPRESSION: No acute radiographic abnormality. Homicide Squad Lieutenant: [employer] Transcribe Date/Time: May 05 2024 5:14P Dictated [...] Unremarkable. IMPRESSION IMPRESSION: No acute radiographic abnormality. Homicide Squad Lieutenant: FAISAL Transcribe Date/Time: May 05 2024 5:14P Dictated by : KEARA LION MD This examination was interpreted and the report reviewed and electronically signed by: KEARA LION MD on May 05 2024 5:15PM [facility] Radiology Study observation (narrative) Jenae lee [facility] XR Chest PA and LateralOrder ed By: Cc Provider on 05-05-2024 [facility] [place] 05-03-2024 [place] Telephone (FAMPWS) ISA TOVAR ([id number]) 1970 F Date Time Provider Department 05/03/24 [...] MA 05/06/2024 8:19 AM Signed Nurse at [facility] reports today at noon. She will contact patient. MINDI Mantilla Rebekah, APRN.LAQUITA 05/06/2024 8:27 AM Signed Jonh, thank you. Ivory Espinoza APRN.REGISTER CLERK Allergies As of Date: 05/03/2024 (No Known Allergies) Date Reviewed: 04/27/2024 Reviewed by: Lolly Miranda MA - Fully Assessed Reason for Visit: Results [95] Primary Visit Diagnosis:Closed nondisplaced fracture of head of left radius, initial encounter [S52.125A] Order(s):CONSULT TO ORTHOPAEDICS [9055] Order #: [id number]: 1 FUTURE Prescriptions as of 05/06/2024 - lisinopril (ZESTRIL) 5 mg tablet Take 1 tablet by mouth once daily. - FLUoxetine (PROZAC) 40 mg capsule Take 1 capsule by mouth once daily. - multivitamin tablet Take 1 tablet by mouth once daily. - famotidine (PEPCID) 20 mg tablet Take 1 tablet by mouth at bedtime as needed. - Mksrwse-Klbxnqyjf-Qvgo tab Take by mouth. Problem List As Of Date 05/03/2024 Noted Resolved Dysthymia [F34.1] 08/23/2015 Well adult exam [Z00.00] 08/23/2015 Acid reflux [K21.9] 08/20/2022 Encounter Status:Closed by BERNADETTE DAILY on 05/04/24 [facility] CNOVon 04-27-2024 CNOV Office Visit (FAMPWS ) ISA TOVAR ([id number]) 1970 F Date Time Provider Department 04/27/24 4:20 PM RONNY GOODMAN During your visit today, we recorded the following information about you: Pulse Respiration Blood pressure Weight 68/minute 14/minute 181/97 70.3 kg Ronny Goodman APRN.[facility] 04/27/2024 4:29 PM Signed Chief Complaint Patient [...] tablet by mouth at bedtime as needed. Papkqsu-Kmonswsaw-Brud tab Take by mouth. No current facility-administered [...] - Goal of BP <130/80 Ronny Goodman APRN.REGISTER CLERK Allergies As of Date: 04/27/2024 (No Known Allergies) Date Reviewed: 04/27/2024 Reviewed by: Lolly Miranda MA - Fully Assessed Reason for Visit: Arm Pain [137] Primary Visit Diagnosis:Injury of left upper arm, initial encounter [S49.92XA] Other Visit Diagnosis:Elevated BP without diagnosis of hypertension [R03.0] Order(s):XR WRIST GENERAL 3V PA/LAT/OBL LEFT [2689791] Order #: [id number] FUTURE XR ELBOW GENERAL 2V AP/LAT LEFT [3130826] Order #: [id number] FUTURE Prescriptions as of 04/27/2024 - FLUoxetine (PROZAC) 40 mg capsule Take 1 capsule by mouth once daily. - multivitamin tablet Take 1 tablet by mouth once daily. - famotidine (PEPCID) 20 mg tablet Take 1 tablet by mouth at bedtime as needed. - Hpgxmfc-Aozflpicd-Iait tab Take by mouth. Problem List As Of Date 04/27/2024 Noted Resolved Dysthymia [F34.1] 08/23/2015 Well adult exam [Z00.00 (more content not included)... Normal [facility] XR ELBOW 2V AP/LAT LTon 10-0 [...] tissues are unremarkable. IMPRESSION: Radial neck fracture Homicide Squad Lieutenant: PSC Transcribe Date/Time: May 01 2024 8:14A Dictated by : KAYLEEN DAVIS MD This examination was interpreted and the report reviewed and electronically signed by: KAYLEEN DAVIS MD on May 01 2024 8:15AM EST [id number] Normal [facility] XR WRIST 3V PA/LAT/OBL LTon 04-27-2024 [...] tissues are unremarkable. IMPRESSION: Radial neck fracture Homicide Squad Lieutenant: [facility] Transcribe Date/Time: May 01 2024 8:14A Dictated by : KAYLEEN DAVIS MD This examination was interpreted and the report reviewed and electronically signed by: KAYLEEN DAVIS MD on May 01 2024 8:15AM EST [id number] Normal [facility] XR Knee - bilateral 4 Viewso n 08-01-2023 IMPRESSION: Findings are suggestive of mild degenerative changes in the right knee. Homicide Squad Lieutenant: PSC Transcribe Date/Time: Aug 01 2023 10:23A [...] soft tissue swelling. DIVISION OF RADIOLOGY Provider, [facility] - 08/01/2023 * * *Final Report* * [...] mild degenerative changes in the right knee. [facility] Transcribe Date/Time: Aug 01 2023 10:23A Dictated by : KEARA LION MD This examination was interpreted and the report reviewed and electronically signed by: KEARA LION MD on Aug 01 2023 10:24AM EST [facility] Radiology Study observation (narrative) [facility] XR Knee - bilateral 4 ViewsO rdered By: Cc Provider on 08-01-2023 [facility] XR CHEST 2V FRONTAL/LATon [facility] XR Chest PA and Lateralon Radiology Study observation (narrative) [facility] IMPRESSION: Hazy opacities in the mid to lower left lung suspicious for pneumonia Homicide Squad Lieutenant: FAISAL Transcribe Date/Time: Oct 22 2022 8:26A Dictated by : MALIA KEATING MD This examination was interpreted and the report reviewed and electronically signed by: MALIA KEATING MD on Oct 22 2022 8:28AM [facility] DIVISION OF RADIOLOGY * * *Final Report* [...] soft tissues: Unremarkable. DIVISION OF RADIOLOGY Provider, [facility] - 10/22/2022 * * *Final Report* * [...] to lower left lung suspicious for pneumonia Homicide Squad Lieutenant: FAISAL Transcribe Date/Time: Oct 22 2022 8:26A Dictated by : MALIA KEATING MD This examination was interpreted and the report reviewed and electronically signed by: MALIA KEATING MD on Oct 22 2022 8:28AM [facility] XR Chest PA and LateralOrder ed By: Ccf Provider on 10-22-2022 [facility] ANES POSTPROC EVALon 023 ANES POSTPROC EVAL HNO ID: [id number] Author: Mitchell Martini MD Service: Anesthesiology Author Type: Anesthesiologist Type: Anesthesia Postprocedure Evaluation Filed: 08/30/2022 12:36 PM Note Text: POST ANESTHESIA EVALUATION NOTE : 1970 Procedure Summary Date: 08/30/22 Room / Location: [place] [address] / [place] Anesthesia Start: 1102 Anesthesia Stop: 1212 [...] August 30, 2022 TIME: 12:36 PM CSN: [id number] [facility] ANES PRE-OPon 08-30-2022 ANES PRE-OP HNO ID: [id number] Author: Mitchell Martini MD Service: Anesthesiology Author Type: Anesthesiologist Type: Anesthesia Preprocedure Evaluation Filed: 08/30/2022 10:58 AM Note Text: ANESTHESIOLOGY DAY OF SURGERY NOTE : 1970 Procedure Information Date/Time: 08/30/22 1031 Procedures: EXCISION GANGLION WRIST (Right: Wrist) FASCIECTOMY, PALM ONLY, W/ OR W/O Z-PLASTY, OTHER LOCAL TISSUE REARRANGEMENT, OR SKIN GRAFTING (Right: Hand) Location: [facility] OR / [facility] OR Surgeons: Tree Dougherty MD Estimated body [...] and consent discussed: yes. Patient / Responsible Republican agrees to proceed: yes Patient / Surrogate [...] by mouth at bedtime as needed. - Adnkoav-Gjyrbxwef-Unvl tab Take by mouth. I have interviewed and examined the patient. I have reviewed the medical record and/or the pre-anesthesia evaluation, pertinent labs, and test results. This contains updated information obtained within 48 hours of Surgery/Procedure. SIGNATURE: Mitchell Martini MD PATIENT NAME: Isa Tovar DATE: August 30, 2022 TIME: 9:21 AM CSN: [id number] [facility] OPERATIVE NOon 08-30-2022 OPERATIVE NO HNO ID: [id number] Author: Tree Dougherty MD Service: Orthopaedic Surgery Author Type: Physician Type: Operative Report Filed: 09/04/2022 7:29 AM Note Text: OPERATIVE/PROCEDURE REPORT LOG ID: [id number] SURGERY/PROCEDURE DATE: 08/30/2022 INCISION/PROCEDURE START TIME: 11:17 AM INCISION CLOSE/PROCEDURE END TIME: 12:09 PM SURGEON(S)/PROCEDURALI ST(S) AND FUR LINER(S): Surgeon(s) and Role: * Tree Dougherty MD - Primary Physician Sales Agent Financial Report Service: Kathryn Alan PA-C SURGERY/PROCEDURE(S): Left wrist, excision [...] with assistance. No qualified resident/fellow was available. pediatric physical therapy assistant was necessary for safe patient positioning, sterile prepping and draping. arm assistance, positioning and protection, soft tissue retraction, protection of vital structures and suture (more content not included)... Normal [facility] HISTORY PHYSICALon HISTORY PHYSICAL HNO ID: [id number] Author: Pearl Andrews PA-C Service: ? Author Type: Physician Sales Agent Financial Report Service Type: HANDP Filed: 08/20/2022 12:53 PM Note Text: PREANESTHESIA CONSULT CLINIC TELEHEALTH VISIT Patient has been identified by name and date of : Yes This is a virtual visit using [employer] video visit. 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 Pt reports that cyst has been present for 4 years but was not bothersome until recently. Pt reports she has aching pain now with working/typing. Above procedure recommended to manage symptoms. Procedure scheduled on 08/30/2022 at [facility]. ACTIVE PROBLEM LIST Dysthymia Well Adult Exam [...] tablet by mouth at bedtime as needed. Exvukbq-Cpipvtljn-Aejx tab Take by mouth. No current facility-administered medications for this visit. COVID VACCINATION STATUS: Not vaccinated, prior infection REVIEW OF SYSTEMS: General: No weight loss, malaise or fevers. Neuro: No history of TIA's, stroke, BUILDING ADMIN tumor, impaired sensorium, hemiplegia, paraplegia or quadraplegia. No neurological symptoms or problems. Respiratory: +Former smoker - quit in 1994. Negative for Asthma, Bronchitis, COPD, Current cough, URI < 2 weeks, Wheezing Cardiovascular: No history of HTN requiring medication, no history of angina, CHF, NC, cardiac surgery or stents. Denies rest pain, [...] mg/dL 06/28/2022 (more content not included)... Normal [facility] LIPID PANEL (EXTERNAL)on Cholesterol [Mass/Vol] 185 mg/dL 0 - 2 00 MG/DL [facility] HDC-L 78 mg/dL Abnormal 41 mg/dL [facility] LDL Chol, calculated 96 MG/DL 130 MG/DL [facility] Triglyceride [Mass/Vol] 59 mg/dL 149 mg/dL [facility] Vital Signs Date Time Vital Sign Value Performing Clinician Facility 10-14-2024 12:44-0400 Body mass index (BMI) [Ratio] 23.74 kg/m2 Izalv Simms CYBERATHLETE.REGISTER CLERK Work Phone: [facility] 10-14-2024 12:44-0400 Body weight 68.77 kg Izalv Simms CYBERATHLETE.REGISTER CLERK Work Phone: [facility] 10-14-2024 12:44-0400 Diastolic blood pressure 78 mm[Hg] Izarina Simms CYBERATHLETE.REGISTER CLERK Work Phone: [facility] 10-14-2024 12:44-0400 Heart rate 67 /min Izalv iSmms CYBERATHLETE.REGISTER CLERK Work Phone: [facility] 10-14-2024 12:44-0400 SaO2% (BldA) [Mass fraction] 98 % Izalv Simms CYBERATHLETE.REGISTER CLERK Work Phone: [facility] 10-14-2024 12:44-0400 Systolic blood pressure 124 mm[Hg] Izarina Simms CYBERATHLETE.REGISTER CLERK Work Phone: [facility] 10-09-2024 11:32-0400 Diastolic blood pressure 56 mm[Hg] Dr. Brandon Monet DO Work Phone: [facility] 10-09-2024 11:32-0400 Systolic blood pressure 102 mm[Hg] Dr. Brandon Monet DO Work Phone: [facility] 10-09-2024 09:30-0400 Body temperature 97.3 [degF] Dr. Brandon Monet DO Work Phone: [facility] 10-09-2024 09:30-0400 Heart rate 78 /min Dr. Brandon Monet DO Work Phone: [facility] 10-09-2024 09:30-0400 Respiratory rate 18 /min Dr. Brandon Monet DO Work Phone: 8(958)534-195462 [place] [address] 10-09-2024 09:30-0400 SaO2% (BldA) [Mass fraction] 96 % Dr. Brandon Monet DO Work Phone: 2(737)159-442962 [place] [address] 10-09-2024 08:31-0400 Body height 170.[address] Brandon Monet DO Work Phone: 6(540)401-580062 [place] [address] 10-09-2024 08:31-0400 Body weight 67.[address] Brandon Monet DO Work Phone: 9(711)327-983062 [place] [address] 10-08-2024 15:58-0400 Body mass index (BMI) [Ratio] 23.3 kg/m2 Dr. Brandon Monet DO Work Phone: 3(698)609-130262 [place] [address] 10-08-2024 15:18-0400 Body temperature 98.2 [degF] Dr. Brandon Monet DO Work Phone: 0(526)923-263962 [place] [address] 10-08-2024 15:18-0400 Diastolic blood pressure 81 mm[Hg] Dr. Brandon Monet DO Work Phone: 7(598)533-107162 [place] [address] 10-08-2024 15:18-0400 Heart rate 76 /min Dr. Brandon Monet DO Work Phone: 9(733)288-687162 [place] [address] 10-08-2024 15:18-0400 Respiratory rate 16 /min Dr. Brandon Monet DO Work Phone: 5(669)390-579262 [place] [address] 10-08-2024 15:18-0400 SaO2% (BldA) [Mass fraction] 100 % Dr. Brandon Monet DO Work Phone: 8(244)942-963362 [place] [address] 10-08-2024 15:18-0400 Systolic blood pressure 161 mm[Hg] Dr. Brandon Monet DO Work Phone: 2(677)563-728962 [place] [address] 10-08-2024 12:43-0400 Body height 170.[address] Brandon Monet DO Work Phone: 4(803)733-599862 [place] [address] 10-08-2024 12:43-0400 Body mass index (BMI) [Ratio] 23.4 kg/m2 Dr. Brandon Monet DO Work Phone: [facility] 10-08-2024 12:43-0400 Body weight 67.[address] Brandon Monet DO Work Phone: [facility] 09-28-2024 14:45-0400 Body mass index (BMI) [Ratio] 23.68 kg/m2 Dylan Bogner PA-C Work Phone: [facility] 09-28-2024 14:45-0400 Body temperature 98.49 [degF] Dylan Bogner PA-C Work Phone: [facility] 09-28-2024 14:45-0400 Body weight 68.58 kg Dylan Bogner PA-C Work Phone: [facility] 09-28-2024 14:45-0400 Diastolic blood pressure 93 mm[Hg] Dylan Bogner PA-C Work Phone: [facility] 09-28-2024 14:45-0400 Heart rate 69 /min Dylan Bogner PA-C Work Phone: [facility] 09-28-2024 14:45-0400 Respiratory rate 16 /min Dylan Bogner PA-C Work Phone: [facility] 09-28-2024 14:45-0400 SaO2% (BldA) [Mass fraction] 100 % Dylan Bogner PA-C Work Phone: [facility] 09-28-2024 14:45-0400 Systolic blood pressure 177 mm[Hg] Dylan Bogner PA-C Work Phone: [facility] 08-31-2024 13:22-0500 Body mass index (BMI) [Ratio] 24.87 kg/m2 Ivory Espinoza APRN.REGISTER CLERK Work Phone: [facility] 08-31-2024 13:22-0500 Body weight 72.03 kg Ivory Espinoza APRN.REGISTER CLERK Work Phone: [facility] 08-31-2024 13:22-0500 Diastolic blood pressure 90 mm[Hg] Ivory Alexis CYBERATHLETE.REGISTER CLERK Work Phone: [facility] Comment on above: bp wilfredo average 08-31-2024 13:22-0500 Heart rate 72 /min Ivory Alexis CYBERATHLETE.REGISTER CLERK Work Phone: [facility] 08-31-2024 13:22-0500 Respiratory rate 14 /min Ivory Alexis CYBERATHLETE.REGISTER CLERK Work Phone: [facility] 08-31-2024 13:22-0500 SaO2% (BldA) [Mass fraction] 98 % Ivory Alexis CYBERATHLETE.REGISTER CLERK Work Phone: [facility] 08-31-2024 13:22-0500 Systolic blood pressure 172 mm[Hg] Ivory Alexis CYBERATHLETE.REGISTER CLERK Work Phone: [facility] Comment on above: bp wilfredo average 08-13-2024 13:03-0500 Body mass index (BMI) [Ratio] 24.78 kg/m2 Iza Simms CYBERATHLETE.REGISTER CLERK Work Phone: [facility] 08-13-2024 13:03-0500 Body weight 71.76 kg Iza Simms CYBERATHLETE.REGISTER CLERK Work Phone: [facility] 08-13-2024 13:03-0500 Diastolic blood pressure 84 mm[Hg] Iza Simms CYBERATHLETE.REGISTER CLERK Work Phone: [facility] 08-13-2024 13:03-0500 Heart rate 67 /min Iza Simms CYBERATHLETE.REGISTER CLERK Work Phone: [facility] 08-13-2024 13:03-0500 Respiratory rate 14 /min Iza Simms CYBERATHLETE.REGISTER CLERK Work Phone: [facility] 08-13-2024 13:03-0500 SaO2% (BldA) [Mass fraction] 96 % Iza Simms CYBERATHLETE.REGISTER CLERK Work Phone: 3(606)312-329537 [place] [address] 08-13-2024 13:03-0500 Systolic blood pressure 162 mm[Hg] Iza Simms APRN.REGISTER CLERK Work Phone: [facility] 08-07-2024 19:33-0500 Diastolic blood pressure 85 mm[Hg] Dr. Brandon Monet DO Work Phone: 5(990)211-183144 [place] [address] 08-07-2024 19:33-0500 Systolic blood pressure 154 mm[Hg] Dr. Brandon Monet DO Work Phone: 9(631)860-467744 [place] [address] 08-07-2024 17:39-0500 Body mass index (BMI) [Ratio] 24.5 kg/m2 Dr. Brandon Monet DO Work Phone: 1(576)502-768262 [place] [address] 08-07-2024 17:39-0500 Body temperature 97.1 [degF] Dr. Brandon Monet DO Work Phone: 3(204)[phone] [place] [address] 08-07-2024 17:39-0500 Body weight 71.[address] Brandon Monet DO Work Phone: 9(714)134-501262 [place] [address] 08-07-2024 17:39-0500 Heart rate 69 /min Dr. Brandon Monet DO Work Phone: 0(133)001-876462 [place] [address] 08-07-2024 17:39-0500 Respiratory rate 16 /min Dr. Brandon Monet DO Work Phone: 3(278)661-132444 [place] [address] 08-07-2024 17:39-0500 SaO2% (BldA) [Mass fraction] 97 % Dr. Brandon Monet DO Work Phone: [facility] 07-29-2024 11:59-0500 Body mass index (BMI) [Ratio] 24.46 kg/m2 Ivory Espinoza APRN.REGISTER CLERK Work Phone: [facility] 07-29-2024 11:59-0500 Body weight 70.85 kg Ivory Espinoza APRN.REGISTER CLERK Work Phone: [facility] 07-29-2024 11:59-0500 Diastolic blood pressure 88 mm[Hg] Ivory Alexis CYBERATHLETE.REGISTER CLERK Work Phone: [facility] 07-29-2024 11:59-0500 Heart rate 61 /min Ivory Alexis CYBERATHLETE.REGISTER CLERK Work Phone: [facility] 07-29-2024 11:59-0500 SaO2% (BldA) [Mass fraction] 100 % Ivory Alexis CYBERATHLETE.REGISTER CLERK Work Phone: [facility] 07-29-2024 11:59-0500 Systolic blood pressure 154 mm[Hg] Ivory Alexis CYBERATHLETE.REGISTER CLERK Work Phone: [facility] 07-01-2024 13:48-0500 Diastolic blood pressure 88 mm[Hg] Ivory Alexis CYBERATHLETE.REGISTER CLERK Work Phone: [facility] Comment on above: recheck bp 07-01-2024 13:48-0500 Systolic blood pressure 144 mm[Hg] Ivory Alexis CYBERATHLETE.REGISTER CLERK Work Phone: [facility] Comment on above: recheck bp 07-01-2024 12:45-0500 Body mass index (BMI) [Ratio] 24.81 kg/m2 Ivory Alexis CYBERATHLETE.REGISTER CLERK Work Phone: [facility] 07-01-2024 12:45-0500 Body weight 71.85 kg Ivory Alexis CYBERATHLETE.REGISTER CLERK Work Phone: [facility] 07-01-2024 12:45-0500 Heart rate 65 /min Ivory Alexis CYBERATHLETE.REGISTER CLERK Work Phone: [facility] 07-01-2024 12:45-0500 Respiratory rate 14 /min Ivory Alexis CYBERATHLETE.REGISTER CLERK Work Phone: [facility] 07-01-2024 12:45-0500 SaO2% (BldA) [Mass fraction] 100 % Ivory Alexis CYBERATHLETE.REGISTER CLERK Work Phone: [facility] 06-02-2024 16:03-0500 Diastolic blood pressure 96 mm[Hg] Ivory Alexis CYBERATHLETE.REGISTER CLERK Work Phone: [facility] Comment on above: bp Wilfredo average 06-02-2024 16:03-0500 Systolic blood pressure 163 mm[Hg] Ivory Alexis CYBERATHLETE.REGISTER CLERK Work Phone: [facility] Comment on above: bp Wilfredo average 06-02-2024 15:33-0500 Body mass index (BMI) [Ratio] 24.17 kg/m2 Ivory Alexis CYBERATHLETE.REGISTER CLERK Work Phone: [facility] 06-02-2024 15:33-0500 Body weight 70 kg Ivory Alexis CYBERATHLETE.REGISTER CLERK Work Phone: [facility] 06-02-2024 15:33-0500 Heart rate 89 /min Ivory Alexis CYBERATHLETE.REGISTER CLERK Work Phone: [facility] 06-02-2024 15:33-0500 Respiratory rate 16 /min Ivory Alexis CYBERATHLETE.REGISTER CLERK Work Phone: [facility] 06-02-2024 15:33-0500 SaO2% (BldA) [Mass fraction] 99 % Ivory Alexis CYBERATHLETE.REGISTER CLERK Work Phone: [facility] 05-05-2024 16:20-0400 Diastolic blood pressure 90 mm[Hg] Ivory Alexis CYBERATHLETE.REGISTER CLERK Work Phone: [facility] 05-05-2024 16:20-0400 Systolic blood pressure 146 mm[Hg] Ivory Alexis CYBERATHLETE.REGISTER CLERK Work Phone: [facility] 05-05-2024 15:23-0400 Body mass index (BMI) [Ratio] 24.69 kg/m2 Ivory Alexis CYBERATHLETE.REGISTER CLERK Work Phone: [facility] 05-05-2024 15:23-0400 Body weight 71.5 kg Ivory Alexis CYBERATHLETE.REGISTER CLERK Work Phone: [facility] 05-05-2024 15:23-0400 Heart rate 72 /min Ivory Espinoza CYBERATHLETE.REGISTER CLERK Work Phone: [facility] 05-05-2024 15:23-0400 Respiratory rate 16 /min Ivory Espinoza CYBERATHLETE.REGISTER CLERK Work Phone: [facility] 05-05-2024 15:23-0400 SaO2% (BldA) [Mass fraction] 100 % Ivory Espinoza CYBERATHLETE.REGISTER CLERK Work Phone: [facility] 04-27-2024 16:27-0400 Diastolic blood pressure 97 mm[Hg] Ronny Goodman CYBERATHLETE.REGISTER CLERK Work Phone: [facility] 04-27-2024 16:27-0400 Systolic blood pressure 181 mm[Hg] Ronny Goodman APRN.REGISTER CLERK Work Phone: [facility] 04-27-2024 16:17-0400 Body mass index (BMI) [Ratio] 24.28 kg/m2 Ronny Goodman APRN.REGISTER CLERK Work Phone: [facility] 04-27-2024 16:17-0400 Body weight 70.31 kg Ronny Goodman APRN.REGISTER CLERK Work Phone: [facility] 04-27-2024 16:17-0400 Heart rate 68 /min Ronny Goodman APRN.REGISTER CLERK Work Phone: [facility] 04-27-2024 16:17-0400 Respiratory rate 14 /min Ronny Goodman APRN.REGISTER CLERK Work Phone: [facility] 11-03-2022 11:07-0400 Body temperature 98.4 [degF] Tamanna Olea APRN.REGISTER CLERK Work Phone: [facility] 11-03-2022 11:07-0400 Body weight 67.59 kg Tamanna Olea APRN.REGISTER CLERK Work Phone: [facility] 11-03-2022 11:07-0400 Diastolic blood pressure 72 mm[Hg] Tamanna Olea APRN.REGISTER CLERK Work Phone: [facility] 11-03-2022 11:07-0400 Heart rate 84 /min Tamanna Olea APRN.REGISTER CLERK Work Phone: [facility] 11-03-2022 11:07-0400 Respiratory rate 16 /min Tamanna Olea APRN.REGISTER CLERK Work Phone: [facility] 11-03-2022 11:07-0400 SaO2% (BldA) [Mass fraction] 98 % Tamanna Olea APRN.REGISTER CLERK Work Phone: [facility] 11-03-2022 11:07-0400 Systolic blood pressure 130 mm[Hg] Tamanna Olea APRN.REGISTER CLERK Work Phone: [facility] 10-22-2022 08:05-0400 Body temperature 99.81 [degF] Krislyn Aberegg PA Work Phone: [facility] 10-22-2022 08:05-0400 Body weight 66.77 kg Krislyn Aberegg PA Work Phone: [facility] 10-22-2022 08:05-0400 Diastolic blood pressure 88 mm[Hg] Krislyn Aberegg PA Work Phone: [facility] 10-22-2022 08:05-0400 Heart rate 99 /min Krislyn Aberegg PA Work Phone: [facility] 10-22-2022 08:05-0400 Respiratory rate 18 /min Krislyn Aberegg PA Work Phone: [facility] 10-22-2022 08:05-0400 SaO2% (BldA) [Mass fraction] 98 % Krislyn Aberegg PA Work Phone: [facility] 10-22-2022 08:05-0400 Systolic blood pressure 134 mm[Hg] Krislyn Aberegg PA Work Phone: [facility] 08-20-2022 12:41-0500 Body height 170.2 cm [facility] 08-20-2022 12:41-0500 Body weight 68.04 kg [facility] 03-28-2022 21:33-0400 Diastolic blood pressure 82 mm[Hg] [facility] Work Phone: 03-28-2022 21:33-0400 Heart rate 79 /min [facility] Work Phone: 03-28-2022 21:33-0400 Respiratory rate 16 /min [facility] Work Phone: 03-28-2022 21:33-0400 SaO2% (BldA) [Mass fraction] 97 % [facility] Work Phone: 03-28-2022 21:33-0400 Systolic blood pressure 134 mm[Hg] [facility] Work Phone: 03-28-2022 19:06-0400 Body height 170.18 cm [facility] Work Phone: 03-28-2022 19:06-0400 Body mass index (BMI) [Ratio] 23.5 kg/m2 [facility] Work Phone: 03-28-2022 19:06-0400 Body temperature 98.8 [degF] [facility] Work Phone: 03-28-2022 19:06-0400 Body weight 68.03 kg [facility] Work Phone: 03-28-2022 18:44-0400 Body temperature 99 [degF] Nicolas Montano MD Work Phone: [facility] 03-28-2022 18:44-0400 Diastolic blood pressure 76 mm[Hg] Nicolas Montano MD Work Phone: [facility] 03-28-2022 18:44-0400 Heart rate 55 /min Nicolas Montano MD Work Phone: [facility] 03-28-2022 18:44-0400 Respiratory rate 16 /min Nicolas Montano MD Work Phone: [facility] 03-28-2022 18:44-0400 SaO2% (BldA) [Mass fraction] 100 % Nicolas Montano MD Work Phone: [facility] 03-28-2022 18:44-0400 Systolic blood pressure 138 mm[Hg] Nicolas Montano MD Work Phone: [facility] Encounters Encounter Date Encounter Type Care Provider Facility Start: 04-14-2025 ambulatory Brandon Monet Facilit y:[facility] Start: 03-23-2025 End: 03-23-2025 Telephone encounter Ladarius Jones MD Work Phone: [facility] Comment on above: Insurance Authorizat ion (PRIOR AUTH SPIRONOLATONE 25 MG) Start: 01-28-2025 End: 03-30-2025 Follow-up encounter Ladarius Jones MD Work Phone: [facility] Start: 01-27-2025 End: 01-27-2025 ambulatory LADARIUS JONES Facility:[facility] Start: 01-26-2025 End: 01-26-2025 Telemedicine consultation with [...] Medicine Start: 10-27-2024 End: 10-27-2024 ambulatory LADARIUS JONES Facility:[facility] Start: 10-19-2024 End: 11-19-2024 ambulatory Brandon L Monet DO Work Phone: [facility] Start: 10-18-2024 End: 10-18-2024 ambulatory BRANDON L MONET Facility:[facility] Start: 10-18-2024 End: 10-19-2024 Follow-up encounter Iza Simms APRN.REGISTER CLERK Work Phone: [facility] Start: 10-14-2024 End: 10-14-2024 Office outpatient visit 25 minutes Iza Simms APRN.REGISTER CLERK Work Phone: [facility] Comment on above: Hospital discharge f ollow-up (Primary Dx); Dysuria; Urinary urgency; Primary hypertension; Hyponatremia; Nonintractable episodic headache, unspecified headache type; Yeast infection Start: 10-14-2024 End: 10-15-2024 Orders Only Ladarius Jones MD Work Phone: [facility] Comment on above: Hyponatremia (Primar y Dx) Results Start: 10-13-2024 End: 10-13-2024 E-mail encounter from caregiver Nurse Card Wstr Work Phone: Cardiology Start: 10-13-2024 End: 10-13-2024 ambulatory Nurse Card Wstr Work Phone: Cardiology Comment on above: Stress Test Instruct ions for 10/18/24 Start: 10-11-2024 End: 10-12-2024 ambulatory Ivory Espinoza APRN.REGISTER CLERK Work Phone: [facility] Comment on above: Sodium/ potassium bl ood work Start: 10-08-2024 ambulatory Jonathan Brasher Fac ility:[facility] Start: 10-08-2024 End: 10-09-2024 Evaluation and management of inpatient Dr. Joanthan Brasher DO -Progressive Care Unit Work Phone: Start: 10-08-2024 End: 11-03-2024 Follow-up encounter Ladarius Jones MD Work Phone: [facility] Comment on above: Results Start: 10-08-2024 End: 10-08-2024 Telephone encounter Aditya Brown MD Work Phone: [facility] Start: 10-07-2024 End: 10-07-2024 ambulatory BRANDON MONET Facility:[facility] Start: 10-06-2024 End: 10-06-2024 Telemedicine consultation with patient Ladarius Jones MD Work Phone: [facility] Start: 10-06-2024 End: 10-06-2024 ambulatory Ladarius Jones MD Work Phone: [facility] Comment on above: Resistant hypertensi on Start: 09-28-2024 End: 09-28-2024 ambulatory BRANDON L MONET Facility:[facility] Start: 09-28-2024 End: 09-28-2024 Office outpatient visit 15 minutes Dylan Cole PA-C Work Phone: [facility] Comment on above: Acute maxillary sinu sitis, recurrence not specified (Primary Dx); Hypertension, unspecified type Start: 09-15-2024 End: 09-16-2024 ambulatory Ivory Espinoza CYBERATHLETE.REGISTER CLERK Work Phone: [facility] Comment on above: BP results Start: 08-31-2024 End: 08-31-2024 ambulatory BRANDON L MONET Facility:[facility] Start: 08-31-2024 End: 08-31-2024 Office outpatient visit 15 minutes Ivory Espinoza CYBERATHLETE.REGISTER CLERK Work Phone: [facility] Comment on above: Resistant hypertensi on (Primary Dx) Start: 08-30-2024 End: 10-30-2024 Follow-up encounter Iza Simms CYBERATHLETE.REGISTER CLERK Work Phone: [facility] Start: 08-26-2024 End: 08-26-2024 ambulatory IZA SIMMS Facility:[facility] Start: 08-25-2024 ambulatory IZA SIMMS Fa cility:[id number] Start: 08-25-2024 End: 08-25-2024 Subsequent hospital visit by physician Nicolette Barnett [place] [facility] Comment on above: Primary hypertension [I10] Start: 08-18-2024 End: 08-18-2024 Refill Iza Simms CYBERATHLETE.REGISTER CLERK Work Phone: [facility] Comment on above: Refill Request Start: 08-13-2024 End: 08-27-2024 Telephone encounter Iza Simms CYBERATHLETE.REGISTER CLERK Work Phone: [facility] Comment on above: Results Start: 08-13-2024 End: 08-13-2024 Office outpatient visit 25 minutes Iza Shahla Simms CYBERATHLETE.REGISTER CLERK Work Phone: [facility] Comment on above: Primary hypertension Start: 08-13-2024 End: 08-13-2024 ambulatory IZA SIMMS Facility:[facility] Start: 08-07-2024 End: 08-07-2024 Emergency department patient visit Dr. Karl العراقي DO -Emergency Department Work Phone: Start: 08-06-2024 End: 08-13-2024 ambulatory Nurse Intm/Famp Triage [facility] Work Phone: Nurse Phone Triage Comment on above: Hypertension BP readings Start: 07-29-2024 End: 07-29-2024 Office outpatient visit 25 minutes Ivory Alexis CYBERATHLETE.REGISTER CLERK Work Phone: [facility] [place] Comment on above: Primary hypertension (Primary Dx); Dysthymia Start: 07-29-2024 End: 07-29-2024 ambulatory BRANDON L MONET Facility:[facility] Start: 07-20-2024 End: 07-28-2024 ambulatory Ivory Alexis CYBERATHLETE.REGISTER CLERK Work Phone: [facility] [place] Comment on above: BP readings Start: 07-01-2024 End: 07-01-2024 ambulatory BRANDON L MONET Facility:[facility] Start: 07-01-2024 End: 07-01-2024 Office outpatient visit 25 minutes Ivory Alexis CYBERATHLETE.REGISTER CLERK Work Phone: [facility] [place] Comment on above: Primary hypertension (Primary Dx); Dysthymia Start: 06-02-2024 End: 06-02-2024 Office outpatient visit 15 minutes Ivory Alexis CYBERATHLETE.REGISTER CLERK Work Phone: [facility] [place] Comment on above: Primary hypertension (Primary Dx) Start: 06-02-2024 End: 06-02-2024 ambulatory BRANDON L MONET Facility:[facility] Start: 05-30-2024 End: 05-30-2024 Emergency department patient visit Karl Dulce Maria Facility:[facility] Start: 05-19-2024 End: 05-19-2024 ambulatory Ivory Espinoza APRN.REGISTER CLERK Work Phone: [facility] Comment on above: Blood pressure readi ngs Start: 05-10-2024 End: 05-10-2024 ambulatory BRANDON L MONET Facility:[facility] Start: 05-05-2024 End: 05-05-2024 ambulatory BRANDON L MONET Facility:[facility] Start: 05-05-2024 End: 05-05-2024 Subsequent hospital visit by physician Pat [facility] Work Phone: Radiology Comment on above: Primary hypertension [I10] Start: 05-05-2024 End: 05-05-2024 Office outpatient visit 40 minutes Ivory Espinoza APRN.REGISTER CLERK Work Phone: [facility] Comment on above: Closed nondisplaced fracture of head of left radius with routine healing, subsequent encounter (Primary Dx); Primary hypertension; Headache, unspecified headache type Start: 05-05-2024 End: 05-05-2024 ambulatory BRANDON L MONET Facility:[facility] Start: 05-03-2024 End: 05-04-2024 Telephone encounter Genoveva Carrera PA-C Work Phone: [facility] Comment on above: Results Start: 04-27-2024 End: 04-27-2024 Subsequent hospital visit by physician Xr [facility] Work Phone: Radiology Comment on above: Injury of left upper arm, initial encounter [S49.92XA] Start: 04-27-2024 End: 04-27-2024 Patient encounter procedure Ronny Goodman APRN.REGISTER CLERK Work Phone: [facility] Comment on above: Injury of left upper arm, initial encounter (Primary Dx); Elevated BP without diagnosis of hypertension Start: 04-27-2024 End: 04-27-2024 ambulatory RONNY GOODMAN Facility:[facility] Start: 12-02-2023 Telephone encounter Ivory Madera CYBERATHLETE.REGISTER CLERK Work Phone: [facility] Comment on above: Results Start: 11-18-2023 Telephone encounter Ivory Madera CYBERATHLETE.REGISTER CLERK Work Phone: [facility] Comment on above: Orders Start: 08-21-2023 Refill Ivory Rodriguez lakia CYBERATHLETE.REGISTER CLERK Work Phone: [facility] Comment on above: Refill Request Start: 08-01-2023 End: 08-01-2023 Subsequent hospital visit by physician Pat [facility] Work Phone: Radiology Comment on above: Chronic pain of righ t knee [M25.561, G89.29] Start: 11-03-2022 End: 11-03-2022 Patient encounter procedure Tamanna Olea APRN.REGISTER CLERK Work Phone: [facility] Comment on above: Contact dermatitis d ue to plants, except food, unspecified contact dermatitis type (Primary Dx) Start: 10-22-2022 End: 10-22-2022 Subsequent hospital visit by physician Pat [facility] Work Phone: Radiology Comment on above: Acute cough [R05.1] Start: 10-22-2022 End: 10-22-2022 Patient encounter procedure Maicol LYNCH Work Phone: [facility] Comment on above: Acute cough [...] Start: 08-30-2022 End: 08-30-2022 ambulatory TREE DOUGHERTY Facility:[facility] Start: 08-28-2022 Telephone encounter Ivory Madera APRN.REGISTER CLERK Work Phone: [facility] Comment on above: Results Start: 08-23-2022 End: 08-23-2022 ambulatory [facility] Work Phone: Start: 08-23-2022 End: 08-23-2022 Patient encounter procedure [facility]-Outpatient Breast Imaging Start: 08-20-2022 End: 08-20-2022 ambulatory TREE DOUGHERTY Facility:[facility] Start: 08-20-2022 [facility] Start: 08-20-2022 End: 08-20-2022 [facility] Start: 08-20-2022 End: 08-20-2022 ambulatory [facility] [...] cyst Start: 07-01-2022 Telephone encounter Ivory Madera APRN.REGISTER CLERK Work Phone: [facility] Comment on above: Results Start: 06-12-2022 ambulatory Brandon braun DO Work Phone: [facility] Start: 04-17-2022 Chart abstracting Brandon west DO Work Phone: [facility] Start: 03-28-2022 End: 03-28-2022 Emergency department patient visit [facility]-Emergency Department Start: 03-28-2022 End: 03-28-2022 Patient encounter procedure Nicolas Montano MD Work Phone: [facility] Comment on above: Laceration of third toe of right foot, initial encounter (Primary Dx) Start: 08-23-2015 Patient encounter status Nicolas Montano MD Work Phone: [facility] Work Phone: Procedures Date Procedure Procedure Detail Performing Clinician Start: 01-26-2025 Follow-up visit Follow Up LADARIUS JONES Start: 10-14-2024 Urnls dip stick/tabl et rgnt auto w/o microscopy Iza Simms APRN.REGISTER CLERK Work Phone: Start: 10-08-2024 Plain chest X-ray Dr. Irina Monet DO Work Phone: Start: 08-25-2024 Dup-scan artl elsa abdl/pel/scrot&/rpr orgn com Iza Simms CYBERATHLETE.REGISTER CLERK Work Phone: Start: 08-07-2024 Plain chest X-ray Dr. Irina Monet DO Work Phone: Start: 05-05-2024 Radiologic exam ches t 2 views Ivory Espinoza APRN.REGISTER CLERK Work Phone: Start: 05-05-2024 Ecg routine ecg w/le ast 12 lds i&r only [facility] Provider Start: 08-01-2023 Radiologic exam knee complete 4/more views Ivory Espinoza APRN.REGISTER CLERK Work Phone: Start: 08-01-2023 Lipid 1996 panel - S raúl or Plasma Ivory Espinoza APRN.REGISTER CLERK Work Phone: Start: 10-22-2022 Radiologic exam ches t 2 views Maicol LYNCH Work Phone: Start: 08-23-2022 End: 08-23-2022 Mammography Ivory Espinoza CYBERATHLETE.REGISTER CLERK Work Phone: Start: 08-16-2022 [facility]oscopy [facility] Start: 04-04-2022 Lipid panel [facility] Provid er Start: 03-28-2022 Plain X-ray of toe Start: 04-26-2021 Mammography Nicolas jones MD Work Phone: Plan of Treatment Date Care Activity Detail Author Start: 03-21-2032 Urine microalbumin profile [facility] Start: 08-01-2028 Lipid panel Lipid Screening [facility] Start: 10-08-2027 Diabetes Screening Diabetes Screenin g [facility] Start: 08-16-2027 Colonoscopy COLONOSCOPY [facility] Start: 08-16-2027 COLORECTAL CANCER SCREENING COLORECTAL CANCER SCREENING [facility] Start: 08-16-2027 Screening for malign ant neoplasm of colon [facility] Start: 06-28-2027 LIPID SCREEN LIPID SCREEN [facility] Start: 04-04-2027 LIPID SCREEN LIPID SCREEN [facility] Start: 08-01-2026 Diabetes Screening Diabetes Screenin g [facility] Start: 10-14-2025 Annual PCP Team Speed Reading Teacher rey Disease Visit Annual PCP Team Chronic Disease Visit [facility] Start: 10-14-2025 BP Controlled (<130/80) BP Controlle d (<130/80) [facility] Start: 09-28-2025 Annual PCP Team Speed Reading Teacher rey Disease Visit Annual PCP Team Chronic Disease Visit [facility] Start: 08-31-2025 Annual PCP Team Speed Reading Teacher rey Disease Visit Annual PCP Team Chronic Disease Visit [facility] Start: 08-13-2025 Annual PCP Team Speed Reading Teacher rey Disease Visit Annual PCP Team Chronic Disease Visit [facility] Start: 08-13-2025 Covid-19 Vaccine ( season) Covid-19 Vaccine () [facility] Comment on above: Postponed from 03/21 (Declined at this time) Start: 07-29-2025 Annual PCP Team Speed Reading Teacher rey Disease Visit Annual PCP Team Chronic Disease Visit [facility] Start: 07-29-2025 End: 10-28-2025 CBC W Auto Differential panel - Blood COMPLETE BLOOD COUNT AND DIFFERENTIAL Lab Routine Resistant hypertension Expected: 07/29/2025, Expires: 10/28/2025 [facility] Comment on above: Expected: 07/29/2025 , Expires: 10/28/2025 Start: 07-29-2025 End: 10-28-2025 Comprehensive metabolic 2000 panel - Serum or Plasma COMPREHENSIVE METABOLIC PANEL Lab Routine Resistant hypertension Expected: 07/29/2025, Expires: 10/28/2025 [facility] Comment on above: Expected: 07/29/2025 , Expires: 10/28/2025 Start: 07-29-2025 End: 10-28-2025 CYSTATIN C CYSTATIN C Lab Routine Resistant hypertension Expected: 07/29/2025, Expires: 10/28/2025 [facility] Comment on above: Expected: 07/29/2025 , Expires: 10/28/2025 Start: 07-29-2025 End: 10-28-2025 Magnesium [Mass/volume] in Serum or Plasma MAGNESIUM Lab Routine Resistant hypertension Expected: 07/29/2025, Expires: 10/28/2025 [facility] Comment on above: Expected: 07/29/2025 , Expires: 10/28/2025 Start: 07-29-2025 End: 10-28-2025 Microalbumin/Creatinine [Mass Ratio] in Urine ALBUMIN/CREATININE RATIO, URINE Lab Routine Resistant hypertension Expected: 07/29/2025, Expires: 10/28/2025 [facility] Comment on above: Expected: 07/29/2025 , Expires: 10/28/2025 Start: 07-29-2025 End: 10-28-2025 Phosphate [Mass/volume] in Serum or Plasma PHOSPHORUS INORGANIC Lab Routine Resistant hypertension Expected: 07/29/2025, Expires: 10/28/2025 [facility] Comment on above: Expected: 07/29/2025 , Expires: 10/28/2025 Start: 07-29-2025 End: 10-28-2025 Protein/Creatinine [Mass Ratio] in Urine PROTEIN / CREATININE RATIO Lab Routine Resistant hypertension Expected: 07/29/2025, Expires: 10/28/2025 [facility] Comment on above: Expected: 07/29/2025 , Expires: 10/28/2025 Start: 07-29-2025 End: 10-28-2025 Urate [Mass/volume] in Serum or Plasma URIC ACID Lab Routine Resistant hypertension Expected: 07/29/2025, Expires: 10/28/2025 [facility] Comment on above: Expected: 07/29/2025 , Expires: 10/28/2025 Start: 07-29-2025 End: 10-28-2025 Urinalysis complete panel - Urine URINALYSIS, WITH MICROSCOPIC Lab Routine Resistant hypertension Expected: 07/29/2025, Expires: 10/28/2025 [facility] Comment on above: Expected: 07/29/2025 , Expires: 10/28/2025 Start: 07-01-2025 Annual PCP Team Speed Reading Teacher rey Disease Visit Annual PCP Team Chronic Disease Visit [facility] Start: 06-28-2025 DIABETES SCREEN DIABETES SCREEN [facility] Start: 06-02-2025 Annual PCP Team Speed Reading Teacher rey Disease Visit Annual PCP Team Chronic Disease Visit [facility] Start: 04-28-2025 End: 07-28-2025 Comprehensive metabolic 2000 panel - Serum or Plasma COMPREHENSIVE METABOLIC PANEL Lab Routine Resistant hypertension Expected: 04/28/2025, Expires: 07/28/2025 [facility] Work Phone: Comment on above: Expected: 04/28/2025 , Expires: 07/28/2025 Start: 03-21-2025 Influenza vaccination Influenza Vacc ine (#1) [facility] Start: 02-28-2025 End: 02-28-2025 Patient encounter procedure 02/28/2025 2:20 PM EDT Office Visit Family Medicine Tanika [address] [place], [place] [id number] Brandon Monet, [address] [place], [place] [id number] physical with pap Family Medicine [facility] Comment on above: physical with pap Start: 01-26-2025 End: 04-27-2025 ALDOSTERONE/DIRECT RENIN RATIO ALDOSTERONE/DIRECT RENIN RATIO Lab Routine Resistant hypertension Expected: 01/26/2025, Expires: 04/27/2025 [facility] Comment on above: Expected: 01/26/2025 , Expires: 04/27/2025 Start: 01-26-2025 End: 04-27-2025 Catecholamines 3 panel [Mass/volume] - Plasma CATECHOLAMINES FRA Lab Routine Resistant hypertension Expected: 01/26/2025, Expires: 04/27/2025 [facility] Comment on above: Expected: 01/26/2025 , Expires: 04/27/2025 Start: 01-26-2025 End: 04-27-2025 Corticotropin [Mass/volume] in Plasma ACTH BLD Lab Routine Resistant hypertension Expected: 01/26/2025, Expires: 04/27/2025 [facility] Comment on above: Expected: 01/26/2025 , Expires: 04/27/2025 Start: 01-26-2025 End: 04-27-2025 Cortisol Free [Mass/volume] in Serum or Plasma CORTISOL, FREE Lab Routine Resistant hypertension Expected: 01/26/2025, Expires: 04/27/2025 [facility] Comment on above: Expected: 01/26/2025 , Expires: 04/27/2025 Start: 01-26-2025 End: 04-27-2025 METANEPHRINES, FREE PLASMA METANEPHRINES, FREE PLASMA Lab Routine Resistant hypertension Expected: 01/26/2025, Expires: 04/27/2025 [facility] Comment on above: Expected: 01/26/2025 , Expires: 04/27/2025 Start: 01-26-2025 End: 01-26-2025 Follow-up encounter 01/26/2025 10:40 AM EDT [facility] [address] [place] [address] Ladarius Arenas MD [address] [place] [address] Follow up Kidney Medicine Comment on above: Follow up Start: 01-17-2025 Influenza vaccination Influenza Vacc ine (#1) [facility] Comment on above: Postponed from 03/21 (Declined at this time) Start: 10-29-2024 End: 10-29-2024 ambulatory 10/29/2024 3:15 PM EDT Results Only Bynum [facility] Draw Station [address] [place] [address] Tanika [facility] Draw Station Start: 10-28-2024 End: 01-27-2025 Renal function 2000 panel - Serum or Plasma RENAL FUNCTION PANEL Lab Routine Hyponatremia Expected: 10/28/2024, Expires: 01/27/2025 [facility] Work Phone: Comment on above: Expected: 10/28/2024 , Expires: 01/27/2025 Start: 10-18-2024 End: 10-18-2024 Nursing evaluation of patient and report Cardiology Comment on above: Primary hypertension [I10] Start: 10-14-2024 End: 10-14-2024 Patient encounter procedure 10/14/2024 12:20 PM EDT Office Visit Family Medicine Bynum [address] [facility] [place] [address] Ivory Espinoza APRN.REGISTER CLERK [address] [facility] [place] [address] 1 month follow up (seeing nursing home physician on 10/06) Family Medicine [facility] Comment on above: 1 month follow up (s eeing nursing home physician on 10/06) Start: 10-12-2024 End: 01-11-2025 ALDOSTERONE/DIRECT RENIN RATIO ALDOSTERONE/DIRECT RENIN RATIO Lab Routine Hyponatremia Hypokalemia Primary hypertension Expected: 10/12/2024, Expires: 01/11/2025 [facility] Comment on above: Expected: 10/12/2024 , Expires: 01/11/2025 Start: 10-12-2024 End: 01-11-2025 Renal function 2000 panel - Serum or Plasma RENAL FUNCTION PANEL Lab Routine Hyponatremia Hypokalemia Expected: 10/12/2024, Expires: 01/11/2025 [facility] Work Phone: Comment on above: Expected: 10/12/2024 , Expires: 01/11/2025 Start: 10-09-2024 Patient discharge [facility] Start: 10-08-2024 Speech therapy assessment [facility] Start: 10-08-2024 Following clinical p athway protocol [facility] Start: 10-08-2024 Ambulation without limitation [facility] Start: 10-08-2024 Assessment of risk o f venous thromboembolism [facility] Start: 10-08-2024 Insertion of cathete r into peripheral vein [facility] Start: 10-08-2024 Oxygen therapy [facility] Start: 10-08-2024 Providing care accor ding to standard [facility] Start: 10-08-2024 [facility] Start: 10-08-2024 Verification routine [facility] Start: 10-08-2024 Admission procedure [facility] Start: 10-08-2024 Hospital admission, emergency, from emergency room, medical nature [facility] Start: 10-08-2024 Osmolality measureme nt, serum [facility] Start: 10-08-2024 Serum inorganic phos phate measurement [facility] Start: 10-08-2024 Patient referral to dietitian [facility] Start: 10-06-2024 End: 01-05-2025 ADH/ARGININE VASOPRS ADH/ARGININE VASOPRS Lab Routine Resistant hypertension Expected: 10/06/2024, Expires: 01/05/2025 [facility] Comment on above: Expected: 10/06/2024 , Expires: 01/05/2025 Start: 10-06-2024 End: 01-05-2025 Catecholamines 3 panel [Mass/volume] - Plasma CATECHOLAMINES FRA Lab Routine Resistant hypertension Expected: 10/06/2024, Expires: 01/05/2025 [facility] Comment on above: Expected: 10/06/2024 , Expires: 01/05/2025 Start: 10-06-2024 End: 01-05-2025 CBC W Auto Differential panel - Blood COMPLETE BLOOD COUNT AND DIFFERENTIAL Lab Routine Resistant hypertension Expected: 10/06/2024 (Approximate), Expires: 01/05/2025 [facility] Comment on above: Expected: 10/06/2024 (Approximate), Expires: 01/05/2025 Start: 10-06-2024 End: 01-05-2025 Chloride [Moles/volume] in Urine collected for unspecified duration CHLORIDE, RANDOM URINE Lab Routine Resistant hypertension Expected: 10/06/2024, Expires: 01/05/2025 [facility] Comment on above: Expected: 10/06/2024 , Expires: 01/05/2025 Start: 10-06-2024 End: 01-05-2025 Comprehensive metabolic 2000 panel - Serum or Plasma COMPREHENSIVE METABOLIC PANEL Lab Routine Resistant hypertension Expected: 10/06/2024 (Approximate), Expires: 01/05/2025 [facility] Comment on above: Expected: 10/06/2024 (Approximate), Expires: 01/05/2025 Start: 10-06-2024 End: 01-05-2025 Corticotropin [Mass/volume] in Plasma ACTH BLD Lab Routine Resistant hypertension Expected: 10/06/2024, Expires: 01/05/2025 [facility] Comment on above: Expected: 10/06/2024 , Expires: 01/05/2025 Start: 10-06-2024 End: 01-05-2025 Cortisol Free [Mass/volume] in Serum or Plasma CORTISOL, FREE Lab Routine Resistant hypertension Expected: 10/06/2024, Expires: 01/05/2025 [facility] Comment on above: Expected: 10/06/2024 , Expires: 01/05/2025 Start: 10-06-2024 End: 01-05-2025 Creatinine [Mass/volume] in Urine collected for unspecified duration CREATININE RANDOM URINE Lab Routine Resistant hypertension Expected: 10/06/2024, Expires: 01/05/2025 [facility] Comment on above: Expected: 10/06/2024 , Expires: 01/05/2025 Start: 10-06-2024 End: 01-05-2025 CYSTATIN C CYSTATIN C Lab Routine Resistant hypertension Expected: 10/06/2024 (Approximate), Expires: 01/05/2025 [facility] Comment on above: Expected: 10/06/2024 (Approximate), Expires: 01/05/2025 Start: 10-06-2024 End: 01-05-2025 Magnesium [Mass/volume] in Serum or Plasma MAGNESIUM Lab Routine Resistant hypertension Expected: 10/06/2024, Expires: 01/05/2025 [facility] Work Phone: Comment on above: Expected: 10/06/2024 , Expires: 01/05/2025 Start: 10-06-2024 End: 01-05-2025 METANEPHRINES, FREE PLASMA METANEPHRINES, FREE PLASMA Lab Routine Resistant hypertension Expected: 10/06/2024, Expires: 01/05/2025 [facility] Comment on above: Expected: 10/06/2024 , Expires: 01/05/2025 Start: 10-06-2024 End: 01-05-2025 Microalbumin/Creatinine [Mass Ratio] in Urine ALBUMIN/CREATININE RATIO, URINE Lab Routine Resistant hypertension Expected: 10/06/2024, Expires: 01/05/2025 [facility] Comment on above: Expected: 10/06/2024 , Expires: 01/05/2025 Start: 10-06-2024 End: 01-05-2025 MISC SEND OUT TST 1 MISC SEND OUT TST 1 Lab Routine Resistant hypertension Expected: 10/06/2024, Expires: 01/05/2025 [facility] Comment on above: Expected: 10/06/2024 , Expires: 01/05/2025 Start: 10-06-2024 End: 01-05-2025 Osmolality of Serum or Plasma OSMOLALITY Lab Routine Resistant hypertension Expected: 10/06/2024, Expires: 01/05/2025 [facility] Comment on above: Expected: 10/06/2024 , Expires: 01/05/2025 Start: 10-06-2024 End: 01-05-2025 Osmolality of Urine OSMOLALITY URINE Lab Routine Resistant hypertension Expected: 10/06/2024, Expires: 01/05/2025 [facility] Comment on above: Expected: 10/06/2024 , Expires: 01/05/2025 Start: 10-06-2024 End: 01-05-2025 Phosphate [Mass/volume] in Serum or Plasma PHOSPHORUS INORGANIC Lab Routine Resistant hypertension Expected: 10/06/2024 (Approximate), Expires: 01/05/2025 [facility] Comment on above: Expected: 10/06/2024 (Approximate), Expires: 01/05/2025 Start: 10-06-2024 End: 01-05-2025 Potassium [Moles/volume] in Urine collected for unspecified duration POTASSIUM RANDOM URINE Lab Routine Resistant hypertension Expected: 10/06/2024, Expires: 01/05/2025 [facility] Comment on above: Expected: 10/06/2024 , Expires: 01/05/2025 Start: 10-06-2024 End: 01-05-2025 Protein/Creatinine [Mass Ratio] in Urine PROTEIN / CREATININE RATIO Lab Routine Resistant hypertension Expected: 10/06/2024, Expires: 01/05/2025 [facility] Comment on above: Expected: 10/06/2024 , Expires: 01/05/2025 Start: 10-06-2024 End: 01-05-2025 Sodium [Moles/volume] in Urine collected for unspecified duration SODIUM RANDOM URINE Lab Routine Resistant hypertension Expected: 10/06/2024, Expires: 01/05/2025 [facility] Comment on above: Expected: 10/06/2024 , Expires: 01/05/2025 Start: 10-06-2024 End: 01-05-2025 Urate [Mass/volume] in Serum or Plasma URIC ACID Lab Routine Resistant hypertension Expected: 10/06/2024, Expires: 01/05/2025 [facility] Comment on above: Expected: 10/06/2024 , Expires: 01/05/2025 Start: 10-06-2024 End: 01-05-2025 Urinalysis complete panel - Urine URINALYSIS, WITH MICROSCOPIC Lab Routine Resistant hypertension Expected: 10/06/2024, Expires: 01/05/2025 [facility] Comment on above: Expected: 10/06/2024 , Expires: 01/05/2025 Start: 10-06-2024 End: 10-06-2024 [facility] [address] [place] [address] Ladarius Arenas MD [address] [place] [address] Resistant hypertension [I1A.0] Kidney Medicine Comment on above: Resistant hypertensi on [I1A.0] Start: 08-31-2024 End: 08-31-2024 Patient encounter procedure 08/31/2024 1:20 PM EST Office Visit Family Tamie Orellana [address] [place], [place] [address] Ivory Espinoza APRN.LAQUITA [address] [place], [place] [id number] 1 month follow up Family Tamie Orellana Comment on above: 1 month follow up Start: 08-26-2024 End: 08-26-2024 ambulatory 08/26/2024 12:30 PM EST [facility] [address] [place] [address] Bynum [facility] Draw Station Start: 08-25-2024 End: 08-25-2024 Patient encounter procedure 08/25/2024 8:15 AM EST Appointment [facility] [address] [place] [address] Primary hypertension [I10] [facility] Comment on above: Primary hypertension [I10] Start: 08-13-2024 End: 11-12-2024 ALDOSTERONE/DIRECT RENIN RATIO ALDOSTERONE/DIRECT RENIN RATIO Lab Routine Primary hypertension Expected: 08/13/2024, Expires: 11/12/2024 [facility] Comment on above: Expected: 08/13/2024 , Expires: 11/12/2024 Start: 08-13-2024 End: 08-13-2024 Patient encounter procedure 08/13/2024 1:00 PM EST Office Visit Family Medicine Tanika [address] [place] [address] Iza Simms, CYBERATHLETE.REGISTER CLERK [address] [place] [address] hypertension er follow up Family Medicine Tanika Comment on above: hypertension er foll ow up Start: 08-07-2024 [facility] Start: 08-01-2024 Covid-19 Vaccine (#1) Covid-19 Vacci ne (#1) [facility] Comment on above: Postponed from 11/19 (Declined at this time) Start: 08-01-2024 Covid-19 Vaccine () Covid-19 Vaccine () [facility] Comment on above: Postponed from 03/21 (Declined at this time) Start: 08-01-2024 Shingrix Vaccine (1 of 2) Julien grix Vaccine (1 of 2) [facility] Comment on above: Postponed from 05/22 (Declined at this time) Start: 07-29-2024 End: 07-29-2024 Patient encounter procedure 07/29/2024 12:00 PM EST Office Visit Family Medicine [facility] [address] [place] [address] Ivory Espinoza APRN.REGISTER CLERK [address] [place] [address] bp check Family Medicine Bynum Comment on above: bp check Start: 06-02-2024 End: 06-02-2024 Patient encounter procedure 06/02/2024 3:20 PM EST Office Visit Family Medicine [facility] [address] [place] [address] Ivory Espinoza APRN.REGISTER CLERK [address] [place] [address] 1 month bp check Family Medicine Tanika Comment on above: 1 month bp check Start: 05-10-2024 End: 05-10-2024 Patient encounter procedure 05/10/2024 1:00 PM EDT Office Visit Cardiology [address] [place] [address] Primary hypertension [I10] Cardiology Comment on above: Primary hypertension [I10] Start: 05-05-2024 End: 05-05-2024 Patient encounter procedure 05/05/2024 3:20 PM EDT Office Visit Family Medicine Tanika [address] [place] [address] Ivory Espinoza APRN.REGISTER CLERK [address] [place] [address] bp check Family Medicine Tanika Comment on above: bp check Start: 03-21-2024 Covid-19 Vaccine ( season) Covid-19 Vaccine ( season) [facility] Start: 03-21-2024 Covid-19 Vaccine ( season) Covid-19 Vaccine () [facility] Start: 03-21-2024 Influenza vaccination C [facility] Start: 01-18-2024 Influenza vaccination Influenza Vacc ine (#1) [facility] Comment on above: Postponed from 03/21 (Declined at this time) Start: 08-23-2023 Mammography MAMMOGRAM [facility] Start: 08-23-2023 Screening for malign ant neoplasm of breast Mammogram Screening [facility] Start: 08-16-2023 Colonoscopy COLONOSCOPY [facility] Start: 08-16-2023 COLORECTAL CANCER SCREENING COLORECTAL CANCER SCREENING [facility] Start: 06-28-2023 COVID-19 VACCINE (#1) COVID-19 VACCI NE (#1) [facility] Comment on above: Postponed from 11/19 (Declined at this time) Start: 06-28-2023 HEPATITIS C SCREENING HEPATITIS C SC REENING [facility] Comment on above: Postponed from 05/22 (Declined at this time) Start: 06-28-2023 HIV SCREENING HIV SCREENING [facility] Comment on above: Postponed from 05/22 (Declined at this time) Start: 06-28-2023 SHINGRIX VACCINE (1 of 2) JULIEN GRIX VACCINE (1 of 2) [facility] Comment on above: Postponed from 05/22 (Declined at this time) Start: 03-21-2023 Influenza vaccination INFLUENZ A (Season Ended) [facility] Start: 01-17-2023 Influenza vaccination INFLUENZA (#1) [facility] Comment on above: Postponed from 03/21 (Declined at this time) Start: 01-02-2023 LIPID SCREEN LIPID SCREEN [facility] Start: 04-26-2022 Mammography MAMMOGRAM [facility] Start: 03-21-2022 Influenza vaccination INFLUENZA (#1) [facility] Start: 01-02-2021 DIABETES SCREEN DIABETES SCREEN [facility] Start: 2020 Pneumococcal Vaccine : 50+ (1 of 1 - PCV) Pneumococcal Vaccine: 50+ (1 of 1 - PCV) [facility] Start: 2020 SHINGRIX VACCINE (1 of 2) JULIEN GRIX VACCINE (1 of 2) [facility] Start: 2015 COLOGUARD (FIT-DNA) COLOGUARD (FIT-D NA) [facility] Start: 2015 Colonoscopy COLONOSCOPY [facility] Start: 2015 COLORECTAL CANCER SCREENING COLORECTAL CANCER SCREENING [facility] Start: [address] COLONOGRAPHY [facility] Start: 2015 FECAL OCCULT BLOOD FECAL OCCULT BLOO D [facility] Start: 2015 Screening for malign ant neoplasm of colon [facility] Start: 2015 SIGMOIDOSCOPY SIGMOIDOSCOPY [facility] Start: 1989 Urine microalbumin profile DTAP,TDAP ,TD (1 - Tdap) [facility] Start: 1988 Anxiety Screening Anxiety Screening [facility] Start: 1988 BP Controlled (<130/80) BP Controlle d (<130/80) [facility] Start: 1988 HEPATITIS C SCREENING HEPATITIS C SC REENING [facility] Start: 1988 HIV SCREENING HIV SCREENING [facility] Start: 1970 COVID-19 VACCINE (#1) COVID-19 VACCI NE (#1) [facility] Start: 1970 HEPATITIS B (1 of 3 - 3-dose series) HEPATITIS B (1 of 3 - 3-dose series) [facility] Bacteria identified in Urine by Culture BACTERIAL CULTURE, URINE Microbiology Routine Dysuria 10/14/2024 1:55 PM EDT [facility] Work Phone: End: 12-17-2024 DBT Breast - bilateral screening JOSE ANTONIO SCREENING [facility] Radiology Routine Screening mammogram for breast cancer 1 Occurrences starting 11/18/2023 until 12/17/2024 [facility] Work Phone: Comment on above: 1 Occurrences starti ng 11/18/2023 until 12/17/2024 End: 11-18-2025 DBT Breast - bilateral screening JOSE ANTONIO SCREENING [facility] Radiology Routine Encounter for screening mammogram for breast cancer 1 Occurrences starting 10/19/2024 until 11/18/2025 [facility] Work Phone: Comment on above: 1 Occurrences starti ng 10/19/2024 until 11/18/2025 ECG COMPLETE [facility] Comment on above: Ordered: 05/05/2024 End: 05-05-2025 Echocardiography ECHO Cardiology Routine Primary hypertension 1 Occurrences starting 05/05/2024 until 05/05/2025 [facility] Work Phone: Comment on above: 1 Occurrences starti ng 05/05/2024 until 05/05/2025 End: 08-13-2025 EXERCISE STRESS ECG (WITHOUT IMAGING) EXERCISE STRESS ECG (WITHOUT IMAGING) Cardiology Routine Primary hypertension 1 Occurrences starting 08/13/2024 until 08/13/2025 [facility] Work Phone: Comment on above: 1 Occurrences starti ng 08/13/2024 until 08/13/2025 Osmolality of Urine [facility] Patient Education [facility] Work Phone: Patient referral [facility] Work Phone: End: 07-12-2023 Screening mammography bi 2-view breast inc cad JOSE ANTONIO SCREENING Radiology Routine Encounter for screening mammogram for breast cancer 1 Occurrences starting 06/12/2022 until 07/12/2023 [facility] Work Phone: Comment on above: 1 Occurrences starti ng 06/12/2022 until 07/12/2023 Sodium [Moles/volume ] in Urine [facility] End: 08-13-2025 US Renal artery US [facility]NAL [facility] Vascular Lab Routine Primary hypertension 1 Occurrences starting 08/13/2024 until 08/13/2025 [facility] Comment on above: 1 Occurrences starti ng 08/13/2024 until 08/13/2025 US Renal artery US [facility] V[facility] Lab Routine Primary hypertension 08/25/2024 8:19 AM EST [facility] Work Phone: End: 05-27-2025 XR Elbow - left AP and Lateral XR ELBOW GENERAL 2V AP/LAT LEFT Radiology Routine Injury of left upper arm, initial encounter 1 Occurrences starting 04/27/2024 until 05/27/2025 [facility] Comment on above: 1 Occurrences starti ng 04/27/2024 until 05/27/2025 XR Elbow - left AP a nd Lateral XR ELBOW GENERAL 2V AP/LAT LEFT Radiology Routine Injury of left upper arm, initial encounter 04/27/2024 5:05 PM EDT [facility] End: 05-27-2025 XR Wrist - left PA and Lateral and Oblique XR WRIST GENERAL 3V PA/LAT/OBL LEFT Radiology Routine Injury of left upper arm, initial encounter 1 Occurrences starting 04/27/2024 until 05/27/2025 [facility] Work Phone: Comment on above: 1 Occurrences starti ng 04/27/2024 until 05/27/2025 XR Wrist - left PA a nd Lateral and Oblique XR WRIST GENERAL 3V PA/LAT/OBL LEFT Radiology Routine Injury of left upper arm, initial encounter 04/27/2024 5:05 PM EDT [facility] Immunizations Immunization Date Immunization Notes Care Provider Ag [facility] 03-28-2022 tetanus toxoid, redu sudha diphtheria toxoid, and acellular pertussis vaccine, adsorbed [facility] 03-21-2022 tetanus toxoid, redu sudha diphtheria toxoid, and acellular pertussis vaccine, adsorbed Ivory Alexis CYBERATHLETE.REGISTER CLERK Work Phone: [facility] Work Phone: 09-03-2016 influenza virus vaccine, unspecified formulation Ivory Alexis CYBERATHLETE.REGISTER CLERK Work Phone: [facility] Payers Date Payer Category Payer Self-pay [id number] 2023 Private Health Insurance [id number] 2021 Private Health Insurance [id number] 2007 Private Health Insurance [id number] Unknown [id number] Unknown [id number] [id number] Unknown [id number] 2.16.8 [id number] Unknown [id number] [id number] Unknown [id number] [id number] Unknown [id number] [id number] [id number] Social History Date Type Detail Facility Start: 03-28-2022 End: 03-28-2022 Tobacco smoking status [facility] Unknown if ever smoked [facility] Start: 1970 Sex Assigned At Female C [facility] Start: 03-28-2022 End: 05-05-2024 Tobacco smoking status NHIS Ex-smoker [facility] Start: 03-04-1985 End: 03-04-1995 History of tobacco use Current smoker [facility] Start: 03-04-1985 End: 03-04-1995 History of tobacco use Cigarette Smoker [facility] Start: 03-28-2022 End: 05-05-2024 Tobacco use and exposure Smokeless tobacco non-user [facility] Start: 03-28-2022 End: 01-26-2025 Alcohol intake Current drinker of alcohol (finding) [facility] Start: 03-18-2022 End: 03-28-2022 Exposure to SARS-CoV-2 (event) Not sure [facility] Start: 08-20-2022 Alcohol Comment occasionally - 4 drinks per week [facility] Start: 08-01-2023 End: 06-28-2024 History of Social function [facility] Start: 08-01-2023 End: 06-28-2024 Tobacco use panel [facility] Start: 06-21-2012 Adult Depression Screening Assessment 0 [facility] Start: 08-01-2023 Alcohol [facility] Start: 07-27-2020 Gender identity Identifies as female gender (finding) [facility] Start: 07-27-2020 Sexual orientation Heterosexual (lissy simpson) [facility] Has the [employer] s, [employer], or [employer] threatened to shut off services in your home in past 12Mo No [facility] Are you now , , , , never or living with a partner? [facility] How often to you hav e a drink containing alcohol? 2-3 time sa week [facility] How many standard drinks containing alcohol do you have on a typical day? 1 or 2 [facility] How often do you hav e 6 or more drinks on 1 occasion? Never [facility] Do you feel stress - tense, restless, nervous, or anxious, or unable to sleep at night because your mind is troubled all the time - these days [OSQ] To some extent [facility] (I/We) worried wheth er (my/our) food would run out before (I/we) got money to buy more. Never true [facility] Start: 10-08-2024 End: 10-08-2024 Tobacco smoking status NHIS Never smoked tobacco (finding) [facility] Start: 10-08-2024 End: 10-09-2024 Sex Female (finding) [facility] Functional Status Date Assessment Result Facility 10-09-2024 Functional status Ambulates [facility] Work Phone: Mental Status Date Assessment Result Facility 10-09-2024 Cognitive function Voice/Name [facility] Work Phone: 10-08-2024 Cognitive function Level Of Cons ciousness Awake;Alert;Appropriate;Follow s Commands [facility] Work Phone: 08-07-2024 Cognitive function Level Of Cons ciousness Awake;Alert;Appropriate;Follow s Commands [facility] Work Phone: Clinical Notes 03-28-2022 to 03-23-2025 Telephone Encounter - Chica Toribio RN - 03/23/2025 11:59 AM EDTTelephone Encounter - Chica Toribio RN - 03/23/2025 11:59 AM EDTTelephone Encounter - Chica Toribio RN - 03/23/2025 11:12 AM EDT Note Date & Type Note Facility 03-23-2025 Telephone encounter Note Images from the original note were not included. ISA TOVAR (Cano: [id number]) Rx #: [id number] Need Help? Call us at Status Sent to Plan today Drug Spironolactone 25MG tablets Form [employer] Electronic PA Form (2016 COUNTS INCLUDE 234 BEDS AT THE [facility]) Original Claim Info 19,76 MAXIMUM DAYS SUPPLY OF 30TRANSMISSION FEE UP TO $0.32 MAY APPLY(PHARMACY HELP DESK ) For [employer] [place] of: $58.32 submit to BIN: [id number] PCN: CP Group: COUPON --Service provided at no cost and no switch fee to the pharmacy-- [facility] 03-23-2025 Miscellaneous Notes Images from the original note were not included. ISA TOVAR (Cano: [id number]) Rx #: [id number] Need Help? Call us at Status Sent to Plan today Drug Spironolactone 25MG tablets Form [employer] Electronic PA Form (2016 COUNTS INCLUDE 234 BEDS AT THE [facility]) Original Claim Info 19,93 MAXIMUM DAYS SUPPLY OF 30TRANSMISSION FEE UP TO $0.32 MAY APPLY(PHARMACY HELP DESK ) For [employer] [place] of: $58.32 submit to BIN: [id number] PCN: CP Group: COUPON --Service provided at no cost and no switch fee to the pharmacy-- Images from the original note were not included. Prior Auth sent via [employer]. ISA TOVAR (Cano: [id number]) Adrian is processing your PA request and will respond shortly with next steps. You are currently using the fastest method to process this prior authorization. Please do not fax or call [facility] to resubmit this request. To check for an update later, open this request again from your dashboard. documented in this encounter [facility] 03-23-2025 Telephone encounter Note Images from the original note were not included. Prior Auth sent via [employer]. ISA TOVAR (Cano: [id number]) [employer] is processing your PA request and will respond shortly with next steps. You are currently using the fastest method to process this prior authorization. Please do not fax or call [employer] to resubmit this request. To check for an update later, open this request again from your dashboard. [facility] 01-26-2025 History of Presen t illness Narrative Images from the original note were not included. [facility] [place] NEPHROLOGY FOLLOW UP NOTE Patient Name: Isa [...] visit. 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 She has 2 adult children who [...] tablet by mouth at bedtime as needed. Svkyvaq-Zwqxgcdqj-Cbud tab Take by mouth. ALLERGIES: ALLERGIES Allergen [...] Range Status 10/07/2024 8.0 <8.5 Final Specific [place], Ur Date Value Ref Range Status 10/07/2024 [...] Brandon Monet DO documented in this encounter [facility] 01-26-2025 Note HNO ID: [id number] Author: LADARIUS ARENAS MD Service: ? Author Type: Physician Type: Progress Notes Filed: 01/26/2025 11:09 Note Text: [facility] [place] NEPHROLOGY FOLLOW UP NOTE Patient Name: Isa [...] visit. 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 She has 2 adult children who [...] tablet by mouth at bedtime as needed. Lcvjidj-Rknixywvr-Nofj tab Take by mouth. ALLERGIES: ALLERGIES Allergen [...] 12.2 01/02/2018 13.1 (more content not included)... [facility] 10-29-2024 Telephone encounter Note Called patient via telephone. Patient advised recent results. Patient states she was un able to receive Urea medication due to cost (300$ copay). Patient states she is using OTC salt substitute, taking 1 tablet by mouth per day. Patient request if she should increase dose. Patient advised provider will be notified. [facility] 10-29-2024 Miscellaneous Notes Called patient via telephone. Patient advised recent results. Patient states she was un able to receive Urea medication due to cost (300$ copay). Patient states she is using OTC salt substitute, taking 1 tablet by mouth per day. Patient request if she should increase dose. Patient advised provider will be notified. documented in this encounter [facility] 10-19-2024 Telephone encounter Note Pt informed Bernadette Daily MA [facility] 10-19-2024 Miscellaneous Notes Pt informed Bernadette Daily [...] a day for 5 days. Iza Simms APRN.REGISTER CLERK documented in this encounter [facility] 10-19-2024 Note Patient Outreach (FA MPWS) ISA TOVAR ([id number]) 1970 F Date Time Provider Department 10/19/24 BRANDON MONET During your visit today, we recorded the following information about you: Allergies As of Date: 10/19/2024 Noted Allergy Reaction CHLORTHALIDONE 10/12/2024 5 - Intolerance Comments: Hyponatremia and hypokalemia. AMLODIPINE 07/29/2024 5 - Intolerance Comments: Pedal edema LISINOPRIL 06/02/2024 3 - Cough Date Reviewed: 10/14/2024 Reviewed by: Iza Simms APRN.REGISTER CLERK - Fully Assessed Visit Diagnosis:Encounter for screening mammogram for breast cancer [Z12.31] Order(s):[facility] SCREENING W SUZANNE [[id number]] Order #: [id number] FUTURE Prescriptions as of 11/19/2024 - losartan [...] by mouth at bedtime as needed. - Malrbac-Vymvywjpk-Ekdc tab Take by mouth. Problem List As Of Date 10/19/2024 Noted Resolved Dysthymia [F34.1] 08/23/2015 Well adult exam [Z00.00] 08/23/2015 Acid reflux [K21.9] 08/20/2022 Resistant hypertension [I1A.0] 10/06/2024 Encounter Status:Closed by VIRAJ BYRD on 11/19/24 [facility] 10-18-2024 Telephone encounter Note Please call [...] day for 5 days. Iza Simms APRN.CNP [facility] 10-14-2024 Note HNO ID: [id number] Author: LADARIUS ARENAS MD Service: ? Author Type: Physician Type: Progress Notes Filed: 10/14/2024 14:09 Note Text: The blood test is showing there is decreased serum sodium (likely due to water retention from fluoxetine). Will start Ure-Na (urea powder) 30 grams dissolved in a glass of water and taken by mouth once a day (sent to [facility] [address] on [address], [place]). Normal potassium (improved). Will repeat a renal panel in 2 weeks. Department of [facility] [place] Ladarius Mayer MD Staff Nephrology and Hypertension [facility] Pager# [phone] [facility] 10-14-2024 History of Presen t illness Narrative The blood test is showing there is decreased serum sodium (likely due to water retention from fluoxetine). Will start Ure-Na (urea powder) 30 grams dissolved in a glass of water and taken by mouth once a day (sent to [facility] [address] on [employer] [place], [place]). Normal potassium (improved). Will repeat a renal panel in 2 weeks. Department [facility] [place] Ladarius Mayer MD Staff Nephrology and Hypertension [facility] Pager# [phone] documented in this encounter [facility] 10-14-2024 Note HNO ID: [id number] Author: SIMMS, IZA, CYBERATHLETE.REGISTER CLERK Service: ? Author Type: Nurse Practitioner Type: Progress Notes Filed: 10/14/2024 13:58 Note Text: 10/14/2024 The patient consented to the use of Textic software for draft documentation of the visit consistent with [facility]?s Notice of Privacy Practices. Isa is a [...] due to low sodium and potassium levels. Cell Biology Scientist sent her to ER after getting lab work results. - Recent medication adjustments by nephrology included increasing chlorthalidone to 50 mg, which led to electrolyte imbalances. - Cell Biology Scientist advised discontinuing chlorthalidone and initiated spironolactone. - [...] tablet by mouth at bedtime as needed. Gjvijpg-Xbqzafhie-Lnmn tab Take by mouth. No current facility-administered [...] spironolactone. - Refill for losartan sent to [facility] for a 90-day supply. - Advised to [...] noted on ex (more content not included)... [facility] 10-14-2024 History of Presen t illness Narrative 10/14/2024 The patient consented to the use of Textic software for draft documentation of the visit consistent with [facility] s Notice of Privacy Practices. Isa is [...] due to low sodium and potassium levels. Cell Biology Scientist sent her to ER after getting lab work results. - Recent medication adjustments by nephrology included increasing chlorthalidone to 50 mg, which led to electrolyte imbalances. - Cell Biology Scientist advised discontinuing chlorthalidone and initiated spironolactone. - [...] tablet by mouth at bedtime as needed. Dybjsog-Rcxktvngu-Fbwk tab Take by mouth. No current facility-administered [...] spironolactone. - Refill for losartan sent to [facility] for a 90-day supply. - Advised to [...] these issues and agrees with the plan. zIa Simms APRN.REGISTER CLERK documented in this encounter [facility] 10-12-2024 Telephone encounter Note Images from the original note were not included. I returned the patient's call. She was hospitalized at [facility] for 24 hours and received 1 liter of NSS IV with her serum sodium improving to 125 and she got IV potassium replacement every 6 hours. Chlorthalidone was stopped. Her blood pressure at home is better (SBP 106 to 138). Will get order repeat labs. Department [facility] [place] Ladarius Mayer MD Staff Nephrology and Hypertension [facility] Pager# [phone] [facility] 10-12-2024 Miscellaneous Notes Images from the original note were not included. I returned the patient's call. She was hospitalized at [facility] for 24 hours and received 1 liter of NSS IV with her serum sodium improving to 125 and she got IV potassium replacement every 6 hours. Chlorthalidone was stopped. Her blood pressure at home is better (SBP 106 to 138). Will get order repeat labs. [facility] [place] Ladarius Mayer MD Staff Nephrology and Hypertension [facility] Pager# [phone] documented in this encounter [facility] 10-09-2024 Note [facility] Medical Records Department [address] [place] [address] Discharge Summary 10/09/24 1425 MR#: [id number] Acct: [id number] Name: ISA TOVAR Rep #: [id number] : 1970 54 From: Mitchell Tobias MD PCP: Dr. Brandon Monet DO Status:DIS IN Location: [place] [address] Providers Date of Admission: 10/08/24 Primary Care [...] EACH EYE DAILY PRN dry eye(s) 10/08/24 rtxysww-bsnndewqf-azkr 333 mg-133 mg-5 mg tablet 3 tab [...] is a 54 F who presented to [facility] ED on 10/08/2024 with abnormal outpatient labs. [...] Random Sodium 3 (more content not included)... [facility] 10-09-2024 Discharge summary Note Date/Time October 09, 2024 10:35am [facility] Medical Records Department [address] [place] [address] Instructions for Home/Discharge Instructions 10/09/24 1030 MR#: [id number] Acct: [id number] Name: ISA TOVAR Rep #:[id number] : 1970 54 From: Mitchell de guzman [...] 20 mg tablet 20 mg PO BID sechzdu-nhhhhbzia-jvgy 333-133-5 mg tablet 3 tab PO BID [...] DO; Dr. Brandon Monet DO ~ Signed [facility] Work Phone: 1(875) 187-371803-22-2025 Discharge summary [facility] Medical Records Department [address] [place] [address] Instructions for Home/Discharge Instructions 10/09/24 1030 MR#: [id number] Acct: [id number] Name: ISA TOVAR Rep #:[id number] : 1970 54 From: Mitchell de guzman [...] 20 mg tablet 20 mg PO BID luibpoy-ynajrvwgq-nfjc 333-133-5 mg tablet 3 tab PO BID [...] DO; Dr. Brandon Monet DO ~ Signed [facility]03-21-2025 History and physical note Author Jonathan Brasher [facility] Note Date/Time October 08, 2024 4:2 0pm [facility] Medical Records Department [address] [place] [address] H&P Exam - Hospitalist 10/08/24 1458 MR#: [id number] Acct: [id number] Name: ISA TOVAR Rep #:[id number] : 1970 54 From: Jonathan hanks DO PCP: Dr. Brandon Monet DO Status:AD M IN Location: [facility] [id number] HPI - General General Date of Admission: 10/08/24 Date of Service: 10/08/24 Chief Complaint: Abnormal labs HPI Narrative ISA LA, is a 54 F who presented to [facility] ED on 10/08/2024 with abnormal outpatient labs. [...] No other acute concerns at this time. [facility] Medical History (Updated 10/08/24 @ 16:[address] Jonathan Brasher, DO) Hypertension Medical History no medical history Home Medications ?Medication ?Instructions ?Recorded ?Last Taken ?Type fluoxetine 40 mg capsule 40 mg PO DAILY 05/30/2409/19 History artifi.tears(hypromellose)(PF) 1.7 1 drp EACH EYE SID Y PRN dry eye(s) 10/08/24 10/08/24 History % eye drops with applicator eubfxnz-vzwrbiwnd-bmsn 333 mg-133 3 tab PO BID 5 [...] Clarity Clear, Urine pH 8.0, Ur Specific [place] 1.010, Urine Protein Negative, Urine Glucose (UA) [...] % (Auto) 64.1, Lymph % (Auto) 25.9, Guadalupe% (Auto) 7.1, Eos % (Auto) 1.9, Baso [...] No acute cardiopulmonary process. Reading Location: [facility] Assessment & Plan Assessment/Plan (1) Acute hyponatremia: (2) Acute hypokalemia: (3) Hypertension: PLAN: Plan Patient is a 54-year-old female who presented to [facility] ED on 10/08/2024 with abnormal outpatient labs. [...] 55 minutes. Charges/Coding Visit Charges Inpatient E&M: 24021 Init Hosp L2 10/08/24 1620 <Electronically signed by Jonathan Brasher DO> Cosigner Signature (if applicable): CC: Dr. Jonathan Brasher DO; Dr. Brandon Monet DO~ Signed [facility] Work Phone: 1(413) 695-684303-21-2025 Discharge summary Author Iftikhar Mendoza [facility] Note Date/Time October 08, 2024 3:3 0pm [facility] Medical Records Department [address] [place] [address] Emergency Department Summary 10/08/24 MR#: [id number] Acct: [id number] Name: ISA TOVAR Rep #:[id number] : 1970 54 From: Iftikhar Mendoza DO PCP: Dr. Brandon Monet DO Status:AD M IN Location: [address] History of Present Illness Chief Complaint: Abn Labs Detail of Chief Complaint: Abnormal labs Narrative Narrative: Patient presents to the emergency department complaint of abnormal labs today. Patient states that she has been dealing with elevated blood pressure since April. She was referred to a nursing home physician whom she had a virtual visit with [...] her cough sometimes causes her to vomit [facility] Medical History (Updated 10/08/24 @ 14:55 by [...] % (Auto) 64.1 Lymph % (Auto) 25.9 Gu[place]upe % (Auto) 7.1 Eos % (Auto) 1.9 [...] Clarity Clear Urine pH 8.0 Ur Specific [place] 1.010 Urine Protein Negative Urine Glucose (UA) [...] No acute cardiopulmonary process. Reading Location: [facility] Normal sinus rhythm Discharge Plan Dx/Rx/DC Orders Clinical Impression: Acute hyponatremia, Acute hypokalemia Disposition Disposition: Acute Care Hospital [facility] What to do if you have Problems For any increased pain, shortness of breath, bleeding, nausea or vomiting, chestpain, or any unexpected problems, contact your Primary Care Provider. Call [facility] ([phone]) or report to the closest Emergency Room. Call 911 if necessary. 10/08/24 1530 <Electronically signed by Iftikhar Mendoza DO> Cosigner Signature (if applicable): CC: Dr. Brandon Monet DO ~ Signed [facility] Work Phone: 1(899) 108-184903-21-2025 Evaluation note* Diagnosis Onset Date Resolution Status Admit Date Acute hypokalemia acute September 192024 3:00pm Acute hyponatremia acute October 08, 2024 3:00pm Hypertension chronic October 08, 2024 3:00pm [facility] Work Phone: 1(173) 844-110003-21-2025 History and physical note [facility] Medical Records Department [address] [place] [address] H&P Exam - Hospitalist 10/08/24 1458 MR#: [id number] Acct: [id number] Name: ISA TOVAR Rep #:[id number] : 1970 54 From: Jonathan hanks DO PCP: Dr. Brandon Monet, DO Status:AD M IN Location: [facility] [id number]- [id number] HPI - General General Date of Admission: 10/08/24 Date of Service: 10/08/24 Chief Complaint: Abnormal labs HPI Narrative ISA TOVAR, is a 54 F who presented to [facility] ED on 10/08/2024 with abnormal outpatient labs. [...] discomfort. No otheracute concerns at this time. [facility] Medical History (Updated 10/08/24 @ 16:[address] Jonathan Brasher DO) Hypertension Medical History no medical history Home Medications ?Medication ?Instructions ?Recorded ?Last Taken ?Type fluoxetine 40 mg capsule 40 mg PO DAILY 05/30/2409/19 History artifi.tears(hypromellose)(PF) 1.7 1 drp EACH EYE SID Y PRN dry eye(s) 10/08/24 10/08/24 History % eye drops with applicator dyfylit-rurocrxgp-jrai 333 mg-133 3 tab PO BID 5 [...] Clarity Clear, Urine pH 8.0, Ur Specific [place] 1.010, Urine Protein Negative, Urine Glucose (UA) [...] Neut% (Auto) 64.1, Lymph % (Auto) 25.9, [place]% (Auto) 7.1, Eos % (Auto) 1.9, Baso [...] No acute cardiopulmonary process. Reading Location: [facility] Assessment & Plan Assessment/Plan (1) Acute hyponatremia: (2) Acute hypokalemia: (3) Hypertension: PLAN: Plan Patient is a 54-year-old female who presented to [facility] ED on 10/08/2024 with abnormal outpatient labs. [...] 55 minutes. Charges/Coding Visit Charges Inpatient E&M: 50154 Init Hosp L2 10/08/24 1620 Cosigner Signature (if applicable): CC: Dr. Jonathan Brasher DO; Dr. Brandon Monet DO~ Signed [facility]03-21-2025 Discharge summary [facility] Medical Records Department [address] [place] [address] Emergency Department Summary 10/08/24 MR#: [id number] Acct: [id number] Name: ISA TOVAR Rep #:[id number] : 1970 54 From: Iftikhar Mendoza DO PCP: Dr. Brandon Monet DO Status:AD M IN Location: [address] History of Present Illness Chief Complaint: Abn Labs Detail of Chief Complaint: Abnormal labs Narrative Narrative: Patient presents to the emergency department complaint of abnormal labs today. Patient states that she has been dealing with elevated blood pressure since April. She was referred to a nursing home physician whom she had a virtual visit with [...] % (Auto) 64.1 Lymph % (Auto) 25.9 [place] % (Auto) 7.1 Eos % (Auto) 1.9 [...] Clarity Clear Urine pH 8.0 Ur Specific [place] 1.010 Urine Protein Negative Urine Glucose (UA) [...] No acute cardiopulmonary process. Reading Location: [facility] Normal sinus rhythm Discharge Plan Dx/Rx/DC Orders Clinical Impression: Acute hyponatremia, Acute hypokalemia Disposition Disposition: [facility] What to do if you have Problems For any increased pain, shortness of breath, bleeding, nausea or vomiting, chestpain, or any unexpected problems, contact your Primary Care Provider. Call [facility] ([phone]) or report tothe closest Emergency Room. Call 911 if necessary. 10/08/24 1530 Cosigner Signature (if applicable): CC: Dr. Brandon Monet DO ~ Signed [facility]03-21-2025 Radiology Diagnostic study note [facility] Imaging Services [address] [place] [address] Chest 1 View (Portable) MR#: [id number] Acct: [id number] Name: ISA TOVAR Rep #: [id number] : 1970 F 54 From: Kavita Stewart MD PCP: Dr. Brandon Monet DO Status: RE G ER Study:Chest 1 View (Portable) Date of Exam: 10/08/24 Exam# [id number] Ordering Dr: Michell Mendoza DO EXAM: XR Chest, 1 View CLINICAL INDICATION: COUGH TECHNIQUE: Frontal view of the chest. COMPARISON: No relevant prior studies available. FINDINGS: LUNGS AND PLEURAL SPACES: Unremarkable. No consolidation. No pneumothorax. HEART: Unremarkable. No cardiomegaly. MEDIASTINUM: Unremarkable. Normal mediastinal contour. BONES/JOINTS: Unremarkable. No acute fracture. RAD/Chest 1 View (Portable) IMPRESSION: No acute cardiopulmonary process. Reading Location: [facility] CC: Dr. rBandon Monet DO; Dr. Iftikhar Mendoza DO ~ Homicide Squad Lieutenant: Signed [facility]03-21-2025 Telephone encounter Note* Telephone Encounter - Aditya [...] the morning. Discussed with rajani. Numbers tried: [phone] (Home Phone) [phone] (Work Phone) Attempted to call the patient again at 630. will fwd to AA and staff Addendum: I called the patient a couple of times at [phone] and also her at [phone] but there was no answer. I left her a voicemail message for her and also for her with lab results showing very low blood level of sodium and potassium and instructions for her to go to the emergency room for evaluation and treatment. Department of Kidney Medicine Medical Specialties [place] Ladarius Mayer MD Staff Nephrology and Hypertension [facility] Pager# [phone] [facility] Work Phone: 1(657) 721-653503-21-2025 Miscellaneous Notes* Telephone Encounter - Aditya Brown [...] the morning. Discussed with rajani. Numbers tried: [phone] (Home Phone) [phone] (Work Phone) Attempted to call the patient again at 630. will fwd to AA and staff Addendum: I called the patient a couple of times at [phone] and also her at [phone] but there was no answer. I left her a voicemail message for her and also for her with lab results showing very low blood level of sodium and potassium and instructions for her to go to the emergency room for evaluation and treatment. Department of Kidney Medicine Medical Specialties [place] Ladarius Mayer MD Staff Nephrology and Hypertension [facility] Pager# [phone] documented in this encounterCleveland Clinic Foundation03-19-2025 History of Present illness Narrative* Ladarius Arenas MD - 10/06/2024 9:00 AM EDT Images from the original note were not included. Department of Kidney Medicine Medical Specialties [place] NEPHROLOGY CONSULT NOTE Patient Name: Isa Tovar [...] visit. 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 She has 2 adult children who [...] tablet by mouth at bedtime as needed. Nkjgflx-Swtmgkuhf-Jmsq tab Take by mouth. ALLERGIES: ALLERGIES Allergen [...] US RENAL [facility] Order: [id number] Narrative Non-Invasive Vascular Laboratory [facility] Renal or Mesenteric Duplex Bilateral/Complete Date of [...] 4:14 PM EST ALDOSTERONE/DIRECT RENIN RATIO Order: [id number] Component Ref Range & Units 1 mo [...] DO Brandon Starkey DO documented in this encounterCleveland Clinic Foundation03-19-2025 NoteHNO ID: [id number] Author: LADARIUS ARENAS MD Service: ? Author Type: Physician Type: Progress Notes Filed: 10/06/2024 09:59 Note Text: Department of Kidney Medicine Medical Specialties [place] NEPHROLOGY CONSULT NOTE Patient Name: Isa Tovar Consultation requested by Ivory Espinoza APRN, REGISTER CLERK (PCP: Brandon Monet DO) for an opinion [...] visit. 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 She has 2 adult children who [...] tablet by mouth at bedtime as needed. Pprtfmb-Wuchtcmxi-Kezv tab Take by mouth. ALLERGIES: ALLERGIES Allergen [...] GASTROINTESTINAL: Positive for c (more content not included)...[facility] 09-28-2024 NoteHNO ID: [id number] Author: DYLAN COLE PA-C Service: ? Author Type: Physician Sales Agent Financial Report Service Type: Progress Notes Filed: 09/29/2024 09:16 Note [...] tablet by mouth at bedtime as needed. Xvwqiii-Tbintcsdd-Wtmt tab Take by mouth. cloNIDine HCl (CATAPRES) [...] issues and agrees with the plan. [facility]03-11-2025 History of Present illness Narrative* Dylan Cole [...] tablet by mouth at bedtime as needed. Ksscruf-Mtmroopof-Febl tab Take by mouth. cloNIDine HCl (CATAPRES) [...] plan. Dylan Cole PA-C documented in this encounterCleveland Clinic Foundation02-26-2025 Telephone encounter Note * Telephone Encounter - Bernadette Daily MA - 09/15/2024 2:08 PM EST Please see pt home bp readings Bernadette Daily MA [facility]02-26-2025 Miscellaneous Notes* Telephone Encounter - Bernadette Daily MA - 09/15/2024 2:08 PM EST Please see pt home bp readings Bernadette Daily MA documented in this encounterCleveland Clinic Foundation02-11-2025 Instructions* Patient Instructions* Ivory Espinoza APRN.CNP - 08/31/2024 1:57 PM EST Schedule with nephrology Send me your BPs in 2 weeks Stop the hydrochlorothiazide Continue the losartan Start the chlorthalidone documented in this encounterCleveland Clinic Foundation02-11-2025 NoteHNO ID: [id number] Author: IVORY ESPINOZA APRN.LAQUITA Service: ? Author [...] tablet by mouth at bedtime as needed. Eslfeml-Ugnzsgwym-Rtjw tab Take by mouth. No current facility-administered [...] record her BP 2x daily and send Packet Digital message in 2 weeks with results. Will likely increase at that point. 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 - CONSULT TO NEPHROLOGY - CHLORTHALIDONE 25 MG TABLET [facility] APRN.[facility] History of Present illness Narrative* Ivory Espinoza APRN.REGISTER CLERK - 08/31/2024 1:43 PM EST Chief Complaint [...] tablet by mouth at bedtime as needed. Btlrdtp-Lezarkaui-Bzqk tab Take by mouth. No current facility-administered [...] record her BP 2x daily and send Packet Digital message in 2 weeks with results. Will likely increase at that point. 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 - CONSULT TO NEPHROLOGY - CHLORTHALIDONE 25 MG TABLET Ivory Espinoza APRN.CNP documented in this encounterCleveland Clinic Foundation01-25-2025 Telephone encounter Note * Telephone Encounter - Oly Gardner - 08/14/2024 8:59 AM EST Called patient and scheduled as directed [facility]01-25-2025 Miscellaneous Notes* Telephone Encounter - Oly Gardner [...] sometimebefore follow-up appointment. Thank you, Iza Simms APRN.REGISTER CLERK documented in this encounterCleveland Clinic Foundation01-24-2025 Telephone encounter Note * Telephone Encounter - Bernadette Daily MA - 08/13/2024 3:47 PM EST Pt informed Please schedule US Bernadette Daily MA [facility]01-24-2025 Telephone encounter Note* Telephone Encounter - Iza Simms APRN.CNP - 08/13/2024 2:51 PM EST Please call patient and let her know that I did decide to add on some lab work and an US of kidneysdue to resistant HTN work-up. Please help her schedule this and have her get lab work done sometimebefore follow-up appointment. Thank you, Iza Simms APRN.REGISTER CLERK [facility]01-24-2025 History of Present illness Narrative* Iza Simms APRN.CNP - 08/13/2024 1:00 PM EST Chief Complaint Patient presents with: b/p elavation in er HPI Isa Tovar is a 54 year old female who presents here today for Above Complaints. Lupe is an established patient of Dr. Chiki DO. Concerns today... ER follow-up -- [facility] ER visit on 08/07 d/t elevated BP. [...] tablet by mouth at bedtime as needed. Jlmmifm-Tgamraoxr-Oopv tab Take by mouth. No current facility-administered [...] agreeable to treatment plan. Iza Sanchez APRN.CNP [address] [place] [address] documented in this encounterCleveland Clinic Foundation01-24-2025 NoteHNO ID: [id number] Author: IZA SIMMS APRN.CNP Service: ? Author Type: Nurse Practitioner Type: Progress Notes Filed: 08/13/2024 14:51 Note Text: Chief Complaint Patient presents with: b/p elavation in er HPI Isa Tovar is a 54 year old female who presents here today for Above Complaints. Lupe is an established patient of Dr. Chiki DO. Concerns today... ER follow-up -- [facility] ER visit on 08/07 d/t elevated BP. [...] tablet by mouth at bedtime as needed. Rdoeorf-Ibotnpkuz-Febo tab Take by mouth. No current facility-administered [...] hypertension - ICD9: 40 (more content not included)...[facility]01-23-2025 Telephone encounter Note* Telephone Encounter - SimmsIza braun APRN.CNP - 08/12/2024 3:21 PM EST Yes, needs appointment. Thank you, Iza Simms APRN.REGISTER CLERK [facility] Work Phone: [phone] 127-107901-23-2025 Miscellaneous Notes* Telephone Encounter - Iza Simms APRN.CNP - 08/12/2024 3:21 PM EST Yes, needs appointment. Thank you, Iza Simms APRN.REGISTER CLERK * Telephone Encounter - Bernadette Daily MA [...] triage. Bernadette Daily MA documented in this encounterCleveland Clinic Foundation01-23-2025 Telephone encounter Note * Telephone Encounter - Bernadette Daily MA - 08/12/2024 3:18 PM EST Please adivse. Would you like pt to schedule ER follow up Bernadette Daily MA [facility]01-17-2025 Telephone encounter Note* Telephone Encounter - Juliet Villaseñor RN - 08/06/2024 1:49 PM EST Patient contacted and agreeable to ER. Plans to go to [facility] ER. Juliet Villaseñor RN [facility]01-17-2025 Miscellaneous Notes* Telephone Encounter - Juliet Villaseñor RN - 08/06/2024 1:49 PM EST Patient contacted and agreeable to ER. Plans to go to [facility] ER. Juliet Villaseñor RN * Telephone Encounter [...] : no Protocols used: Blood Pressure - Sfnw-MGWOS-BZ documented in this encounterCleveland Clinic Foundation01-17-2025 Telephone encounter Note * Telephone Encounter - Ivory Espinoza APRN.CNP - 08/06/2024 1:32 PM EST Agree with need for ER evaluation. Ivory Espinoza APRN.CNP [facility]01-17-2025 Telephone encounter Note* Telephone Encounter - Juliet [...] : no Protocols used: Blood Pressure - Fyqy-IMPRE-FB [facility]01-17-2025 Telephone encounter Note* Telephone Encounter - Ivory Espinoza APRN.CNP - 08/06/2024 12:58 PM EST Please have someone triage this and consider sending her to the ER. Ivory Espinoza APRN.CNP [facility]01-17-2025 Telephone encounter Note* Telephone Encounter - Bernadette Daily MA - 08/06/2024 12:53 PM EST Please see pt message. Will place on triage schedule to further triage. Bernadette Daily MA [facility]01-09-2025 NoteHNO ID: [id number] Author: IVORY ESPINOZA APRN.[facility] Service: ? Author Type: Nurse Practitioner Type: [...] tablet by mouth at bedtime as needed. Tmrdckf-Kiqmmurhw-Mhnp tab Take by mouth. No current facility-administered [...] Increase losartan to 50mg daily. Will send Packet Digital message in 2 weeks with update of [...] - FLUOXETINE 40 MG CAPSULE [facility]ory [facility]inoza APRN.[facility]NP[facility]01-09-[facility] History of Present illness Narrative* Ivory [...] tablet by mouth at bedtime as needed. Vfmkwln-Wnjchusni-Mwvp tab Take by mouth. No current facility-administered [...] Increase losartan to 50mg daily. Will send Packet Digital message in 2 weeks with update of [...] CAPSULE Ivory Espinoza APRN.CNP documented in this encounterCleveland Clinic Foundation01-08-2025 Telephone encounter Note * Telephone Encounter - [...] by mouth once daily. Ivory Espinoza APRN.CNP [facility]01-08-2025 Miscellaneous Notes* Telephone Encounter - Ivory Espinoza [...] tablet by mouth once daily. Ivory Espinoza APRN.REGISTER CLERK * Telephone Encounter - Bernadette Daily MA - 07/23/2024 11:51 AM EST Please see pt message Bernadette Daily MA documented in this encounterCleveland Clinic Foundation01-03-2025 Telephone encounter Note * Telephone Encounter - Bernadette Daily MA - 07/23/2024 11:51 AM EST Please see pt message Bernadette Daily MA [facility]12-12-2024 NoteHNO ID: [id number] Author: IVORY ESPINOZA APRN.LAQUITA Service: ? Author [...] tablet by mouth at bedtime as needed. Cvwhgva-Psqajzzka-Bnwo tab Take by mouth. No current facility-administered [...] Begin losartan 25mg daily. She will send Packet Digital message in 2 weeks with BP results. [...] - FLUOXETINE 40 MG CAPSULE Iv[facility]ino[facility] APRN.[facility]12-12-2024 History of Present illness Narrative* Ivory [...] tablet by mouth at bedtime as needed. Tgwmemx-Hqaqlhhrd-Qdnk tab Take by mouth. No current facility-administered [...] Begin losartan 25mg daily. She will send [facility] message in 2 weeks with BP results. [...] - FLUOXETINE 40 MG CAPSULE Ivory Espinoza APRN.REGISTER CLERK documented in this encounterCleveland Clinic Foundation11-13-2024 Instructions* Patient Instructions* Ivory Espinoza APRN.LAQUITA - 06/02/2024 4:20 PM EST Stop the lisinopril, start the amlodipine (Norvasc). Send me your BP and heart rates in a week through Packet Digital. documented in this encounterCleveland Clinic Foundation11-13-2024 NoteHNO ID: [id number] Author: IVORY ESPINOZA APRN.LAQUITA Service: ? Author [...] tablet by mouth at bedtime as needed. Floterq-Arqjwbndc-Jejs tab Take by mouth. No current facility-administered [...] Will send BP and HR results via [facility] in 1 week. Suspect will need to increase amlodipine at that time. F/u in the office in 1 month. - AMLODIPINE 5 MG TABLET Ivory Espinoza APRN.[facility]11-13-2024 History of Present illness Narrative* Ivory Espinoza APRN.REGISTER CLERK - 06/02/2024 3:53 PM EST Chief Complaint [...] tablet by mouth at bedtime as needed. Osngrca-Sxlkhqkfs-Mkzj tab Take by mouth. No current facility-administered [...] Will send BP and HR results via CoTweeth[employer] in 1 week. Suspect will need to increase amlodipine at that time. F/u in the office in 1 month. - AMLODIPINE 5 MG TABLET Ivory Espinoza APRN.CNP documented in this encounterCleveland Clinic Foundation11-13-2024 Nurse Note* Bernadette Daily MA - 06/02/2024 3:36 PM EST 06/02/2024: Home BP Cuff Validated. Home BP: 186/96 Office BP: 188/110 Bernadette Daily MA [facility]11-13-2024 Nurse Note* Bernadette Daily MA - 06/02/2024 3:36 PM EST 06/02/2024: Home BP Cuff Validated. Home BP: 186/96 Office BP: 188/110 Bernadette Daily MA documented in this encounterCleveland Clinic Foundation10-30-2024 Telephone encounter Note * Telephone Encounter - Ivory Espinoza APRN.CNP - 05/19/2024 6:04 PM EDT Increase lisinopril to 10mg daily and send BP results in 1 week please. Ivory Espinoza APRN.CNP [facility]10-30-2024 Miscellaneous Notes* Telephone Encounter - Ivory Espinoza APRN.CNP - 05/19/2024 6:04 PM EDT Increase lisinopril to 10mg daily and send BP results in 1 week please. Ivory Espinoza APRN.LAQUITA documented in this encounterCleveland Clinic Foundation10-16-2024 History of Present illness Narrative* Dillon Solorio [...] PATIENT PRESENTS WITH AN IMPLANTABLE OR ATTACHED MICROARRAY ANALYST: No RADIOLOGY DEPARTMENT: General X-ray: Exam(s) Completed: Chest X-Ray PERIPHERAL IV DATA: Not applicable SIGNED BY: RT Lisa(Michael) May 05, 2024 4:52 PM documented in this encounterCleveland Clinic Foundation10-16-2024 NoteHNO ID: [id number] Author: DILLON SOLORIO RT(R) Service: ? Author Type: Business Management Specialist Type: Progress Notes Filed: 05/05/2024 17:01 Note [...] PATIENT PRESENTS WITH AN IMPLANTABLE OR ATTACHED MICROARRAY ANALYST: No RADIOLOGY DEPARTMENT: General X-ray: Exam(s) Completed: Chest X-Ray PERIPHERAL IV DATA: Not applicable SIGNED BY: RT Lisa(R) May 05, 2024 4:52 [facility]10-16-2024 Instructions* Patient Instructions* Ivory Espinoza APRN.CNP - 05/05/2024 4:00 PM EDT Have your chest xray completed. Schedule your echocardiogram ultrasound of your heart. Start the lisinopril 5mg daily. Monitor your BP and heart rate on a daily basis, send these resultsto me in 2 weeks via Packet Digital. Ultimately we want your BP to be <130/80. If you are consistently higher than 170/100, please let me know. If you develop a severe headache, vision changes, chest pain, or shortness of breath, youneed to go to the emergency department. documented in this encounterCleveland Clinic Foundation10-16-2024 NoteHNO ID: [id number] Author: IVORY ESPINOZA APRN.LAQUITA Service: ? Author Type: Nurse Practitioner Type: Progress Notes Filed: 05/05/2024 18:17 Note Text: Chief Complaint Patient presents with: BP Check HPI Isa Tovar is a 53 year old female who presents here today for Above Complaints. Has appt with [facility] with [facility] next Friday for her [...] tablet by mouth at bedtime as needed. Xpjkvzh-Xcyewgyij-Nzyy tab Take by mouth. No current facility-administered [...] diagnosis Begin lisinopril 5mg daily. Will send Packet Digital message in 2 weeks with daily BP and HR results. Likely will need to increase dose at that time, will then need in of (more content not included)...[facility]10-16-2024 History of Present illness Narrative* Ivory Espinoza APRN.REGISTER CLERK - 05/05/2024 3:34 PM EDT Chief Complaint Patient presents with: BP Check HPI Isa Tovar is a 53 year old female who presents here today for Above Complaints. Has appt with [facility] with [facility] next Friday for her [...] tablet by mouth at bedtime as needed. Xcjofgg-Cpmgajyup-Umjs tab Take by mouth. No current facility-administered [...] continue brace, use sling prn Is seeing [facility] next week 05/12. Will see if they can possibly see her any sooner d/tthe fracture. - SLING, ARM 2. Primary hypertension - ICD9: 401.9, ICD10: I10 - New diagnosis Begin lisinopril 5mg daily. Will send Packet Digital message in 2 weeks with daily BP [...] R51.9 Begin lisinopril 5mg daily. Will send Packet Digital message in 2 weeks with daily BP [...] - LISINOPRIL 5 MG TABLET Ivory Espinoza APRN.REGISTER CLERK documented in this encounterCleveland Clinic Foundation10-15-2024 Telephone encounter Note * Telephone Encounter - Bernadette Daily MA - 05/04/2024 4:20 PM EDT Pt ok to see tanika garcia. Faxed consult. Bernadette Daily MA [facility]10-15-2024 Miscellaneous Notes* Telephone Encounter - Bernadette Daily [...] ortho. Genoveva Carrera PA-C documented in this encounterCleveland Clinic Foundation10-15-2024 Telephone encounter Note * Telephone Encounter - Bernadette Daily MA - 05/04/2024 2:34 PM EDT Pt informed. Reports she can get a sling. Please schedule with ORTHO STAT. Bernadette Daily MA [facility]10-14-2024 Telephone encounter Note* Telephone Encounter - Genoveva Carrera PA-C - 05/03/2024 11:18 AM EDT Let patient know that her xray shows wrist fracture. Will place consult to ortho. Is she in a slingcurrently? Or does she have access to one? She can use one for comfort until she sees ortho. Genoveva Carrera PA-C [facility]10-08-2024 History of Present illness Narrative* Ginna Pedro, [...] PATIENT PRESENTS WITH AN IMPLANTABLE OR ATTACHED MICROARRAY ANALYST: No RADIOLOGY DEPARTMENT: General X-ray: Exam(s) Completed: Upper Extremity X- Ray(s): Elbow, left and Wrist, left PERIPHERAL IV DATA: Not applicable SIGNED BY: RT Tanja(Michael) April 27, 2024 4:51 PM documented in this encounterCleveland Clinic Foundation10-08-2024 NoteHNO ID: [id number] Author: GINNA PEDRO RT(R) Service: Radiology Author [...] PATIENT PRESENTS WITH AN IMPLANTABLE OR ATTACHED MICROARRAY ANALYST: No RADIOLOGY DEPARTMENT: General X-ray: Exam(s) Completed: Upper Extremity X-Ray(s): Elbow, left and Wrist, left PERIPHERAL IV DATA: Not applicable SIGNED BY: SILVINO Agrawal) April 27, 2024 4:51 [facility]10-08-2024 NoteHNO ID: [id number] Author: RONNY GOODMAN APRN.REGISTER CLERK Service: ? Author Type: Nurse Practitioner Type: [...] tablet by mouth at bedtime as needed. Prrogkg-Fjryvybdg-Ppco tab Take by mouth. No current facility-administered [...] - Goal of BP <130/80 Ronny Goodman APRN.[facility]10-08-2024 History of Present illness Narrative* Ronny Goodman APRN.REGISTER CLERK - 04/27/2024 4:21 PM EDT Chief Complaint [...] tablet by mouth at bedtime as needed. Tmnkqzs-Ogvktfeqw-Yuxj tab Take by mouth. No current facility-administered [...] <130/80 Ronny Goodman APRN.LAQUITA documented in this encounterCleveland Clinic Foundation05-14-2024 Telephone encounter Note * Telephone Encounter - Lolly Isaac MA - 12/02/2023 2:40 PM EDT Patient active MyChart. Patient notified via Packet Digital message. Lolly Isaac MA [facility]05-14-2024 Miscellaneous Notes* Telephone Encounter - Lolly Isaac MA - 12/02/2023 2:40 PM EDT Patient active MyChart. Patient notified via Packet Digital message. Lolly Isaac MA * Telephone Encounter - Ivory Espinoza APRN.CNP - 12/02/2023 2:19 PM EDT Please let her know that her mammogram shows no concern for malignancy/cancer. Recommend continuingto follow up yearly with screening mammogram. Ivory Espinoza APRN.CNP documented in this encounterCleveland Clinic Foundation05-14-2024 Telephone encounter Note * Telephone Encounter - Ivory Espinoza APRN.CNP - 12/02/2023 2:19 PM EDT Please let her know that her mammogram shows no concern for malignancy/cancer. Recommend continuingto follow up yearly with screening mammogram. Ivory Espinoza APRN.CNP [facility]04-30-2024 Telephone encounter Note* Telephone Encounter - Iris Chang MA - 11/18/2023 10:29 AM EDT Order sent to [facility] Iris Chang MA [facility]04-30-2024 Miscellaneous Notes* Telephone Encounter - Iris Chang MA - 11/18/2023 10:29 AM EDT Order sent to [facility] Iris Chang MA * Telephone Encounter - Ivory Espinoza APRN.CNP - 11/18/2023 9:44 AM EDT Order signed, please fax per request. Ivory Espinoza APRN.CNP * Telephone Encounter - Urvashi Altamirano LPN - 11/18/2023 9:31 AM EDT Patient calling she has set up mamm appt at [facility] for November 26. Patient needs order faxed to [facility] at [phone]. Need order for Mamm with suzanne, pending order. Please advise documented in this encounterCleveland Clinic Foundation04-30-2024 Telephone encounter Note * Telephone Encounter - Ivory Espinoza APRN.CNP - 11/18/2023 9:44 AM EDT Order signed, please fax per request. Ivory Espinoza APRN.REGISTER CLERK [facility]04-30-2024 Telephone encounter Note* Telephone Encounter - Urvashi Altamirano LPN - 11/18/2023 9:31 AM EDT Patient calling she has set up mamm appt at [facility] for November 26. Patient needs order faxed to [facility] at [phone]. Need order for Mamm with suzanne, pending order. Please advise [facility]02-01-2024 Miscellaneous Notes* Telephone Encounter - Estefany Olsen [...] you. Estefany Olsen LPN. documented in this encounterCleveland Clinic Foundation01-12-2024 History of Present illness Narrative* Dillon Solorio RT(R) - 08/01/2023 9:40 AM EST Radiology Service Progress Note PATIENT NAME: Isa Toavr DATE OF SERVICE: August 01, 2023 TIME: [...] 01, 2023 9:51 AM documented in this encounterCleveland Clinic Foundation04-16-2023 History of Present illness Narrative* Tamanna Olea APRN.REGISTER CLERK - 11/03/2022 11:12 AM EDT Images from the original note were not included. Subjective Patient came in with complaints of itching rash on bilateral legs and arms. Patient says she got into a poison doyle or sumac about a week ago. Patient says she is tried ncai-gxa-linqlfc stuff with no relief. Patient denies any other symptoms at this time. The history is provided by the patient. No educational speech language clinician was used. Rash Review of Systems Constitutional: [...] tablet by mouth at bedtime as needed. Dfmovvt-Vtnnjpdaw-Kyvb tab Take by mouth. predniSONE (DELTASONE) 10 [...] plan. Tamanna Olea APRN.CNP documented in this encounterCleveland Clinic Foundation04-04-2023 History of Present illness Narrative* Zulema Clayton [...] IV DATA: Not applicable SIGNED BY: RT rOlando(R) October 22, 2022 8:17 AM documented in this encounterCleveland Clinic Foundation04-04-2023 History of Present illness Narrative* [facility] Monsivais - 10/22/2022 8:10 AM EDT Images from the original note were not included. This note was created using Nova Lignumriter. Subjective Isa Tovar is a 52 year [...] tablet by mouth at bedtime as needed. Rbkxbcq-Tryawptzm-Lnhn tab Take by mouth. FAMILY HISTORY Problem [...] ER evaluation. SYED Monsivais documented in this encounterCleveland Clinic Foundation03-23-2023 History of Present illness Narrative* Tree Dougherty MD - 10/10/2022 9:23 AM EDT Tree Dougherty MD Department of Orthopaedics Orthopaedics [address] [facility] [address] Dept: [phone] Dept October 10, 2022 CHIEF COMPLAINT: Established [...] tablet by mouth at bedtime as needed. Mllszfy-Qbxjgmxjw-Hkdi tab Take by mouth. No current facility-administered medications for this visit. Allergies: Patient has no known allergies. Tree Dougherty MD documented in this encounterCleveland Clinic Foundation02-20-2023 History of Present illness Narrative* Kathryn Alan PA-C - 09/09/2022 9:17 AM EST Kathryn Alan PA-C Department of Orthopaedics Orth[facility] [address] [facility] [facility] [address] Dept: [phone] Dept September 09, 2022 CHIEF COMPLAINT: Established [...] tablet by mouth at bedtime as needed. Ysvkjjt-Tyzihxclm-Uclc tab Take by mouth. No current facility-administered medications for this visit. Allergies: Patient has no known allergies. This note was partially generated using Yagomart voice recognition system, and there may be [...] but otherwise no pain. documented in this encounterCleveland Clinic Foundation02-08-2023 Miscellaneous Notes* Telephone Encounter - Bernadette Daily - 08/28/2022 11:29 AM EST Pt informed, verbalized understanding Bernadette Daily * Telephone Encounter - Ivory Espinoza APRN.CNP - 08/28/2022 9:52 AM EST Please let Isa know that there is no concern for malignancy/cancer. Recommend continuing to follow up yearly with screening mammogram. Ivory Espinoza APRN.CNP documented in this encounterCleveland Clinic Foundation01-31-2023 Instructions* Patient Instructions* Pearl Andrews PA-C - 08/20/2022 12:50 PM EST PATIENT PREOPERATIVE INSTRUCTIONS [facility]: [phone] -- [address] [facility] [address]. Please read below carefully for your personalized [...] Procedures: - YOU MUST HAVE A RESPONSIBLE COLD HEADER TAKE YOU HOME. A CHUTE TAPPER OR PROGRAM MANAGER TRANSPORTATION CANNOT BE MADE A RESPONSIBLE COLD HEADER. - We recommend that a responsible person [...] Advance Directive, please fax a copy to [phone] or email to for it to be [...] your chart that day. documented in this encounterCleveland Clinic Foundation01-30-2023 History and physical note * Pearl Andrews PA-C - 08/19/2022 11:11 AM EST PREANESTHESIA CONSULT CLINIC TELEHEALTH VISIT Patient has been identified by name and date of : Yes This is a virtual visit using CoTweethart video visit. It require patient-provider interaction for the medical decision making as documented below. Reason for contact: PACC visit Accompanied by: Self Scheduled Surgery: EXCISION GANGLION WRIST, FASCIECTOMY, PALM ONLY, W/ OR W/O Z- PLASTY, OTHER LOCALTISSUE REARRANGEMENT, OR SKIN GRAFTING Subjective CHIEF COMPLAINT: Patient presents with: Anesthesia Consult HPI: Isa oTvar is a 52 year old LHD female presenting for pre- anesthesia consultation. Pthas history of cyst on right wrist and Dupuytren's contracture of right ring finger. 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 Pt reports that cyst has beenpresent for 4 years but was not bothersome until recently. Pt reports she has aching pain now with working/typing. Above procedure recommended to manage symptoms. Procedure scheduled on 08/30/2022 at [facility]. ACTIVE PROBLEM LIST Dysthymia Well Adult Exam [...] tablet by mouth at bedtime as needed. Uftwohj-Fcjirlbax-Qhpf tab Take by mouth. No current facility-administered medications for this visit. COVID VACCINATION STATUS: Not vaccinated, prior infection REVIEW OF SYSTEMS: General: No weight loss, malaise or fevers. Neuro: No history of TIA's, stroke, BUILDING ADMIN tumor, impaired sensorium, hemiplegia, paraplegia or quadraplegia. No neurological symptoms or problems. Respiratory: +Former smoker - quit in 1994. Negative for Asthma, Bronchitis, COPD, Current cough, URI < 2 weeks, Wheezing Cardiovascular: No history of HTN requiring medication, no history of angina, CHF, NC, cardiac surgery or stents. Denies rest pain, [...] device. I spent more than 0-20 minutes lbgv-am-fxrl with the patient and over half the time was devoted to counseling and/or coordination of care. This is a virtual visit. It required patient-provider interaction for the medical decision making as documented above. SIGNATURE: Pearl Andrews PA-C PATIENT NAME: Isa Tovar DATE: 08/20/22 TIME: 12:44 PM PAGER/CONTACT #: documented in this encounterCleveland Clinic Foundation01-12-2023 Miscellaneous Notes* Telephone Encounter - Padmini Cabral [...] open palmar fasciectomy on08/30/22. documented in this encounterCleveland Clinic Foundation01-05-2023 History of Present illness Narrative* Tree Dougherty MD - 07/25/2022 11:37 AM EST Tree Dougherty MD Department of Orthopaedics Orthopaedics [address] [facility] [address] Dept: [phone] Dept July 25, 2022 CHIEF COMPLAINT: New and Pain of the Right Hand HPI Patient here today for Dupuytren's contracture and a cyst on the right wrist. Patient is left hand dominant. 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 [...] tablet by mouth at bedtime as needed. Uoyvdag-Yzfnteqho-Vlhs tab Take by mouth. cholecalciferol, vitamin D3, [...] physician via [place] mail. Ivory Espinoza [address] [facility] [address] Brandon Monet DO [address] [facility] [address] Tree Dougherty MD documented in this encounterCleveland Clinic Foundation12-12-2022 Miscellaneous Notes* Telephone Encounter - Bernadette Altman [...] attached Bernadette Altman Ma documented in this encounterCleveland Clinic Foundation09-08-2022 History of Present illness Narrative* Nicolas Montano [...] Take 150 mg by mouth twice daily. Opjxxjn-Lpwdibpev-Nctq tab Take by mouth. cholecalciferol, vitamin D3, (VITAMIN D3) 100 mcg (4,000 unit) cap Take by mouth. ALLERGIES: ALLERGIES No Known Allergies VITALS: BP 138/76 Pulse (!) 55 Temp 37.2 C (99 F) Resp 16 SpO2 100% documented in this encounterCleveland Clinic FoundationEvaluchristiana hospital noteNo assessment information availableWWright-[facility] Work Phone: Evaluation note* Diagnosis Laceration of third toe of right foot, initial encounter- Primary documented in this encounter [facility] note* Diagnosis Encounter for screening mammogram for breast cancer [facility] Diagnosis Ganglion of right wrist- Primary Ganglion of joint Dupuytren's contracture Contracture of palmar fascia Ganglion of right wrist Ganglion of joint Dupuytren's contracture Contracture of palmar fascia documented in this encounter [facility]* Diagnosis Dupuytren's contracture of right hand Contracture of palmar fascia Ganglion cyst Ganglion, unspecified Ganglion of right wrist Ganglion of joint Dupuytren's contracture Contracture of palmar fascia documented in this encounter [facility]* Diagnosis Preoperative examination- Primary Preoperative examination, unspecified Dysthymia Dysthymic disorder Gastroesophageal reflux disease, unspecified whether esophagitis present Ganglion of right wrist Ganglion of joint Dupuytren's contracture Contracture of palmar fascia documented in this encounter [facility]* Diagnosis Ganglion of right wrist- Primary Ganglion of joint Dupuytren's contracture Contracture of palmar fascia [facility]* Diagnosis Acute cough- Primary Rib pain Chest pain, unspecified Pneumonia of left lower lobe due to infectious organism documented in this encounter [facility]* Diagnosis Contact dermatitis due to plants, except food, unspecified contact dermatitis type- Primary [facility]* Diagnosis Ganglion of right wrist- Primary Ganglion of joint Dupuytren's contracture of right hand Contracture of palmar fascia documented in this encounter [facility]* Diagnosis Dysthymia Dysthymic disorder documented in this encounter [facility]* Diagnosis Screening mammogram for breast cancer- Primary [facility]* Diagnosis Preoperative examination- Primary Preoperative examination, unspecified Dysthymia Dysthymic disorder Gastroesophageal reflux disease, unspecified whether esophagitis present Chronic pain of right knee Knee effusion, right Effusion of lower leg joint documented in this encounter [facility] note* Diagnosis Preoperative examination- Primary Preoperative examination, unspecified Dysthymia Dysthymic disorder Gastroesophageal reflux disease, unspecified whether esophagitis present Acute cough documented in this encounter [facility] note* Diagnosis Preoperative examination- Primary Preoperative examination, unspecified Dysthymia Dysthymic disorder Gastroesophageal reflux disease, unspecified whether esophagitis present Injury of left upper arm, initial encounter- Primary Elevated BP without diagnosis of hypertension documented in this encounter [facility] note* Diagnosis Preoperative examination- Primary Preoperative examination, unspecified Dysthymia Dysthymic disorder Gastroesophageal reflux disease, unspecified whether esophagitis present Injury of left upper arm, initial encounter [facility]* Diagnosis Preoperative examination- Primary Preoperative examination, unspecified Dysthymia Dysthymic disorder Gastroesophageal reflux disease, unspecified whether esophagitis present Closed nondisplaced fracture of head of left radius, initial encounter- Primary documented in this encounter [facility] note* Diagnosis Preoperative examination- Primary Preoperative examination, unspecified Dysthymia Dysthymic disorder Gastroesophageal reflux disease, unspecified whether esophagitis present Closed nondisplaced fracture of head of left radius with routine healing, subsequent encounter- Primary Primary hypertension Unspecified essential hypertension Headache, unspecified headache type Primary hypertension Unspecified essential hypertension documented in this encounter [facility] note* Diagnosis Preoperative examination- Primary Preoperative examination, unspecified Dysthymia Dysthymic disorder Gastroesophageal reflux disease, unspecified whether esophagitis present Primary hypertension Unspecified essential hypertension [facility]* Diagnosis Preoperative examination- Primary Preoperative examination, unspecified Dysthymia Dysthymic disorder Gastroesophageal reflux disease, unspecified whether esophagitis present Primary hypertension Unspecified essential hypertension documented in this encounter [facility] note* Diagnosis Preoperative examination- Primary Preoperative examination, unspecified Dysthymia Dysthymic disorder Gastroesophageal reflux disease, unspecified whether esophagitis present Primary hypertension- Primary Unspecified essential hypertension [facility]* Diagnosis Preoperative examination- Primary Preoperative examination, unspecified Dysthymia Dysthymic disorder Gastroesophageal reflux disease, unspecified whether esophagitis present Primary hypertension- Primary Unspecified essential hypertension Dysthymia Dysthymic disorder [facility]* Diagnosis Preoperative examination- Primary Preoperative examination, unspecified Dysthymia Dysthymic disorder Gastroesophageal reflux disease, unspecified whether esophagitis present Primary hypertension- Primary Unspecified essential hypertension [facility]* Diagnosis Preoperative examination- Primary Preoperative examination, unspecified Dysthymia Dysthymic disorder Gastroesophageal reflux disease, unspecified whether esophagitis present Primary hypertension- Primary Unspecified essential hypertension Dysthymia Dysthymic disorder documented in this encounter [facility] note* Diagnosis Preoperative examination- Primary Preoperative examination, unspecified Dysthymia Dysthymic disorder Gastroesophageal reflux disease, unspecified whether esophagitis present Primary hypertension Unspecified essential hypertension documented in this encounter [facility] note* Diagnosis Preoperative examination- Primary Preoperative examination, unspecified Dysthymia Dysthymic disorder Gastroesophageal reflux disease, unspecified whether esophagitis present Dysthymia Dysthymic disorder documented in this encounter [facility] note* Diagnosis Preoperative examination- Primary Preoperative examination, unspecified Dysthymia Dysthymic disorder Gastroesophageal reflux disease, unspecified whether esophagitis present Primary hypertension Unspecified essential hypertension documented in this encounter [facility] note* Diagnosis Preoperative examination- Primary Preoperative examination, unspecified Dysthymia Dysthymic disorder Gastroesophageal reflux disease, unspecified whether esophagitis present Resistant hypertension- Primary documented in this encounter [facility] note* Diagnosis Preoperative examination- Primary Preoperative examination, unspecified Dysthymia Dysthymic disorder Gastroesophageal reflux disease, unspecified whether esophagitis present Primary hypertension Unspecified essential hypertension documented in this encounter [facility] note* Diagnosis Preoperative examination- Primary Preoperative examination, unspecified Dysthymia Dysthymic disorder Gastroesophageal reflux disease, unspecified whether esophagitis present Acute maxillary sinusitis, recurrence not specified- Primary Hypertension, unspecified type [facility]* Diagnosis Preoperative examination- Primary Preoperative examination, unspecified Dysthymia Dysthymic disorder Gastroesophageal reflux disease, unspecified whether esophagitis present Resistant hypertension documented in this encounter [facility] note* Diagnosis Preoperative examination- Primary Preoperative examination, unspecified Dysthymia Dysthymic disorder Gastroesophageal reflux disease, unspecified whether esophagitis present Hyponatremia- Primary Hyposmolality and/or hyponatremia Hypokalemia Hypopotassemia Primary hypertension Unspecified essential hypertension documented in this encounter [facility] note* Diagnosis Preoperative examination- Primary Preoperative examination, unspecified Dysthymia Dysthymic disorder Gastroesophageal reflux disease, unspecified whether esophagitis present Hospital discharge follow-up- Primary Other follow-up examination Dysuria Urinary urgency Urgency of urination Primary hypertension Unspecified essential hypertension Hyponatremia Hyposmolality and/or hyponatremia Nonintractable episodic headache, unspecified headache type Yeast infection Candidiasis of unspecified site documented in this encounter [facility] note* Diagnosis Preoperative examination- Primary Preoperative examination, unspecified Dysthymia Dysthymic disorder Gastroesophageal reflux disease, unspecified whether esophagitis present Hyponatremia- Primary Hyposmolality and/or hyponatremia documented in this encounter [facility] note* Diagnosis Preoperative examination- Primary Preoperative examination, unspecified Dysthymia Dysthymic disorder Gastroesophageal reflux disease, unspecified whether esophagitis present Dysuria- Primary Urinary urgency Urgency of urination documented in this encounter [facility] note* Diagnosis Preoperative examination- Primary Preoperative examination, unspecified Dysthymia Dysthymic disorder Gastroesophageal reflux disease, unspecified whether esophagitis present Encounter for screening mammogram for breast cancer documented in this encounter [facility] note* Diagnosis Preoperative examination- Primary Preoperative examination, unspecified Dysthymia Dysthymic disorder Gastroesophageal reflux disease, unspecified whether esophagitis present Resistant hypertension- Primary documented in this encounter [facility] Discharge instructions Additional Instructions Follow-up with your primary care doctor in 3 to 5 days to monitor your blood pressure in order a BMP to monitor your sodium levels. We did stop your chlorthalidone which is likely the cause of your low sodium level.[facility] Work Phone: Reason for referral (narrative)* Diagnostic Procedure Only (Routine) - Pending Review Specialty Diagnoses / Procedures Referred By Gabriel t Referred To Contact [facility] Diagnoses Encounter for screening mammogram for breast cancer Procedures JOSE ANTONIO SCREENING SCREENING MAMMOGRAPHY BI 2-VIEW BREAST INC Brandon Mackey, [address] [place] [address] [facility] [address] [place] [address] Referral ID Status Reason Start Date Expiration Date Visits Requested Visits Authorized [id number] Pending Review Auto-Generat ed Referral 2 07/12/2023 1 1 [facility] for referral (narrative)* Diagnostic Procedure Only (Routine) - Pending Review Specialty Diagnoses / Procedures Referred By Gabriel t Referred To Contact [facility] Diagnoses Screening mammogram for breast cancer Procedures JOSE ANTONIO SCREENING W SUZANNE SCREENING DIGITAL BREAST TOMOSYNTHESIS BI SCREENING MAMMOGRAPHY BI 2-VIEW BREAST INC CAD Ivory Espinoza APRN.REGISTER CLERK [address] [place] [address] [facility] [address] [place] [address] Referral ID Status Reason Start Date Expiration Date Visits Requested Visits Authorized [id number] Pending Review Auto-Generat ed Referral 11/18/2023 12/17/2024 1 1 [facility] for referral (narrative)* Diagnostic Procedure Only (Urgent) - Closed Specialty Diagnoses / Procedures Referred By Gabriel birmingham Referred To Contact [facility] Diagnoses Chronic pain of right knee Knee effusion, right Procedures XR KNEE GENERAL 4V AP BOTH/PA BOTH/LAT/MERC BILATERAL RADIOLOGIC EXAM KNEE COMPLETE 4/MORE VIEWS Ivory Espinoza APRN.REGISTER CLERK [address] [place] [address] [place] [address] Referral ID Status Reason Start Date Expiration Date V isits Requested Visits Authorized [id number] Closed Auto-Generate d Referral 08/01/2023 08/30/2024 1 1 [facility] for referral (narrative)* Diagnostic Procedure Only (Routine) - Closed Specialty Diagnoses / Procedures Referred By Gabriel t Referred To Contact [facility] Diagnoses Injury of left upper arm, initial encounter Procedures XR ELBOW GENERAL 2V AP/LAT LEFT RADEX ELBOW 2 VIEWS Ronny Goodman CYBERATHLETE.REGISTER CLERK [address] [place] [address] [place] [address] Referral ID Status Reason Start Date Expiration Date V isits Requested Visits Authorized [id number] Closed Auto-Generate d Referral 04/27/2024 05/27/2025 1 1 * Diagnostic Procedure Only (Routine) - Closed Specialty Diagnoses / Procedures Referred By Contac t Referred To Contact [facility] Diagnoses Injury of left upper arm, initial encounter Procedures XR WRIST GENERAL 3V PA/LAT/OBL LEFT RADEX WRIST COMPLETE MINIMUM 3 VIEWS Ronny Goodman APRN.REGISTER CLERK [address] [place] [address] [place] [address] Referral ID Status Reason Start Date Expiration Date V isits Requested Visits Authorized [id number] Closed Auto-Generate d Referral 04/27/2024 05/27/2025 1 1 [facility] for referral (narrative)* Outpatient Procedure (Routine) - New Request Specialty Diagnoses / Procedures Referred By Contac t Referred To Contact [facility] Diagnoses Primary hypertension Procedures ECG COMPLETE ECG ROUTINE ECG W/LEAST 12 LDS W/I&R Ivory Espinoza APRN.REGISTER CLERK [address] [place] [address] [facility] [place] [address] [place] [address] Referral ID Status Reason Start Date Expiration Date Visits Requested Visits Authorized [id number] New Request Auto-Generat ed Referral 05/05/2025 1 1 * Outpatient Procedure (Routine) - Authorized Specialty Diagnoses / Procedures Referred By Contac t Referred To [facility] Diagnoses Primary hypertension Procedures ECHO ECHO TTHRC R-T 2D W/WOM-MODE COMPL SPEC&COLR D Ivory Espinoza APRN.REGISTER CLERK [address] [place] [address] [address] Referral ID Status Reason Start Date Expiration Date Visits Requested Visits Authorized [id number] Authorized Auto-Generat ed Referral 05/05/2025 1 1 [facility] for referral (narrative)* Outpatient Procedure (Routine) - New Request Specialty Diagnoses / Procedures Referred By Contac t Referred To Contact [facility] Diagnoses Primary hypertension Procedures US RENAL ARTERY RENETTA VAS LAB DUP-SCAN ARTL ELSA ABDL/PEL/SCROT&/RPR ORGN COM Iza Simms APRN.REGISTER CLERK [address] [place] [address] [address] Referral ID Status Reason Start Date Expiration Date Visits Requested Visits Authorized [id number] New Request Auto-Generat ed Referral 08/13/2024 08/13/2025 1 1 * Outpatient Procedure (Routine) - Authorized Specialty Diagnoses / Procedures Referred By Contac t Referred To Contact [facility] Diagnoses Primary hypertension Procedures EXERCISE STRESS ECG (WITHOUT IMAGING) CV STRS TST XERS&/OR RX CONT ECG TRCG ONLY Iza Simms APRN.REGISTER CLERK [address] [place] [address] [address] Referral ID Status Reason Start Date Expiration Date Visits Requested Visits Authorized [id number] Authorized Auto-Generat ed Referral 08/13/2024 08/13/2025 1 1 [facility] for referral (narrative)* Outpatient Procedure (Routine) - Closed Specialty Diagnoses / Procedures Referred By Contac t Referred To Contact [facility] Diagnoses Primary hypertension Procedures US RENAL ARTERY RENETTA VAS LAB DUP-SCAN ARTL ELSA ABDL/PEL/SCROT&/RPR ORGN COM Iza Simms CYBERATHLETE.REGISTER CLERK [address] [place] [address] [facility] [place] [address] [place] [address] Referral ID Status Reason Start Date Expiration Date V isits Requested Visits Authorized [id number] Closed Auto-Generate d Referral 08/13/2024 08/13/2025 1 1 [facility] for referral (narrative)No reason for referral information availableWWright-[facility] Work Phone: Reason for visit Narrative* Diagnostic Procedure Only (Urgent) - Closed Specialty Diagnoses / Procedures Referred By Contac t Referred To Contact [facility] Diagnoses Chronic pain of right knee Knee effusion, right Procedures XR KNEE GENERAL 4V AP BOTH/PA BOTH/LAT/MERC BILATERAL RADIOLOGIC EXAM KNEE COMPLETE 4/MORE VIEWS Ivory Espinoza, CYBERATHLETE.REGISTER CLERK [address] [place] [id number] [place] [address] Referral ID Status Reason Start Date Expiration Date V isits Requested Visits Authorized [id number] Closed Auto-Generate d Referral 08/01/2023 08/30/2024 1 1 [facility] for visit Narrative* Diagnostic Procedure Only (Routine) - Closed Specialty Diagnoses / Procedures Referred By Contac t Referred To Contact [facility] Diagnoses Injury of left upper arm, initial encounter Procedures XR ELBOW GENERAL 2V AP/LAT LEFT RADEX ELBOW 2 VIEWS Ronny Goodman, CYBERATHLETE.REGISTER CLERK [address] [place] [address] [place] [address] Referral ID Status Reason Start Date Expiration Date V isits Requested Visits Authorized [id number] Closed Auto-Generate d Referral 04/27/2024 05/27/2025 1 1 [facility] for visit Narrative* Outpatient Procedure (Routine) - Closed Specialty Diagnoses / Procedures Referred By Contac t Referred [facility] Diagnoses Primary hypertension Procedures US RENAL ARTERY RENETTA VAS LAB DUP-SCAN ARTL ELSA ABDL/PEL/SCROT&/RPR ORGN COM Iza Simms APRN.REGISTER CLERK [address] [place] [address] [facility] [place] [address] [place] [address] Referral ID Status Reason Start Date Expiration Date V isits Requested Visits Authorized [id number] Closed Auto-Generate d Referral 08/13/2024 08/13/2025 1 1 [facility] Chief Complaint and Reason for Visit Chief [...] Will No March 28 7:20pm Power of Party Plan Sales Consultant No March 28, 2022 7:20pm Advance Directive Response Recorded Date/ Time Living Will No March 28 6:20pm Power of Party Plan Sales Consultant No March 28, 2022 6:20pm Advance Directive Response Recorded Date/ Time Living Will Yes August 07 7:33pm Do you have a Healthcare Power of Party Plan Sales Consultant? Yes August 07, 2024 7:33pm Name of Medical Power of Party Plan Sales Consultant Les Deanne i August 07, 2024 7:33pm Living Will Yes October 08, 2024 1:57pm Do you have a Healthcare Power of Party Plan Sales Consultant? Yes October 08, 2024 1:57pm Name of Medical Power of Party Plan Sales Consultant Les October 08, 2024 1:57pm Advance Directive Response Recorded Date/ Time Living Will Yes August 07 7:33pm Do you have a Healthcare Power of Party Plan Sales Consultant? Yes August 07, 2024 7:33pm Name of Medical Power of Party Plan Sales Consultant Les Deanne i August 07, 2024 7:33pm Living Will Yes October 08, 2024 3:58pm Do you have a Healthcare Power of Party Plan Sales Consultant? Yes October 08, 2024 3:58pm Name of Medical Power of Party Plan Sales Consultant Les- October 08, 2024 3:58pm Summary Purpose Family History No Family History Records FoundNo Family History Records FoundNo Family History Records FoundNo Family History Records FoundNo Family History Records Found Reason for Referral Specialty Diagnoses / Procedures Referred By Gabriel birmingham Referred To Contact Orthopedics Diagnoses Closed nondisplaced fracture of head of left radius, initial encounter Procedures CONSULT TO ORTHOPAEDICS OFFICE/OUTPATIENT [facility] 60 MINUTES Genoveva Carrera PA-C [address] [place] [address] Referral ID Status Reason Start Date Expiration Date Visits Requested Visits Authorized [id number] Authorized PCP Requested Referral 4 05/03/2025 1 [...] or prosecute any alcohol or drug abuse patient.[facility] FoundationIn the event this information is protected by the Federal Confidentiality of Alcohol and Drug Abuse Patient Records regulations: The Federal rules restrict any use of the information to criminally investigate or prosecute any alcohol or drug abuse patient.[facility] FoundationIn the event this information is protected by the Federal Confidentiality of Alcohol and Drug Abuse Patient Records regulations: The Federal rules restrict any use of the information to criminally investigate or prosecute any alcohol or drug abuse patient.[facility] FoundationIn the event this information is protected by the Federal Confidentiality of Alcohol and Drug Abuse Patient Records regulations: The Federal rules restrict any use of the information to criminally investigate or prosecute any alcohol or drug abuse patient.[facility] FoundationIn the event this information is protected by the Federal Confidentiality of Alcohol and Drug Abuse Patient Records regulations: The Federal rules restrict any use of the information to criminally investigate or prosecute any alcohol or drug abuse patient.[facility] FoundationIn the event this information is protected by the Federal Confidentiality of Alcohol and Drug Abuse Patient Records regulations: The Federal rules restrict any use of the information to criminally investigate or prosecute any alcohol or drug abuse patient.[facility] FoundationIn the event this information is protected by the Federal Confidentiality of Alcohol and Drug Abuse Patient Records regulations: The Federal rules restrict any use of the information to criminally investigate or prosecute any alcohol or drug abuse patient.[facility] FoundationIn the event this information is protected by the Federal Confidentiality of Alcohol and Drug Abuse Patient Records regulations: The Federal rules restrict any use of the information to criminally investigate or prosecute any alcohol or drug abuse patient.[facility] FoundationIn the event this information is protected by the Federal Confidentiality of Alcohol and Drug Abuse Patient Records regulations: The Federal rules restrict any use of the information to criminally investigate or prosecute any alcohol or drug abuse patient.[facility] FoundationIn the event this information is protected by the Federal Confidentiality of Alcohol and Drug Abuse Patient Records regulations: The Federal rules restrict any use of the information to criminally investigate or prosecute any alcohol or drug abuse patient.[facility] FoundationIn the event this information is protected by the Federal Confidentiality of Alcohol and Drug Abuse Patient Records regulations: The Federal rules restrict any use of the information to criminally investigate or prosecute any alcohol or drug abuse patient.[facility] FoundationIn the event this information is protected by the Federal Confidentiality of Alcohol and Drug Abuse Patient Records regulations: The Federal rules restrict any use of the information to criminally investigate or prosecute any alcohol or drug abuse patient.[facility] FoundationIn the event this information is protected by the Federal Confidentiality of Alcohol and Drug Abuse Patient Records regulations: The Federal rules restrict any use of the information to criminally investigate or prosecute any alcohol or drug abuse patient.[facility] FoundationIn the event this information is protected by the Federal Confidentiality of Alcohol and Drug Abuse Patient Records regulations: The Federal rules restrict any use of the information to criminally investigate or prosecute any alcohol or drug abuse patient.[facility] FoundationIn the event this information is protected by the Federal Confidentiality of Alcohol and Drug Abuse Patient Records regulations: The Federal rules restrict any use of the information to criminally investigate or prosecute any alcohol or drug abuse patient.[facility] FoundationIn the event this information is protected by the Federal Confidentiality of Alcohol and Drug Abuse Patient Records regulations: The Federal rules restrict any use of the information to criminally investigate or prosecute any alcohol or drug abuse patient.[facility] FoundationIn the event this information is protected by the Federal Confidentiality of Alcohol and Drug Abuse Patient Records regulations: The Federal rules restrict any use of the information to criminally investigate or prosecute any alcohol or drug abuse patient.[facility] FoundationIn the event this information is protected by the Federal Confidentiality of Alcohol and Drug Abuse Patient Records regulations: The Federal rules restrict any use of the information to criminally investigate or prosecute any alcohol or drug abuse patient.[facility] FoundationIn the event this information is protected by the Federal Confidentiality of Alcohol and Drug Abuse Patient Records regulations: The Federal rules restrict any use of the information to criminally investigate or prosecute any alcohol or drug abuse patient.[facility] FoundationIn the event this information is protected by the Federal Confidentiality of Alcohol and Drug Abuse Patient Records regulations: The Federal rules restrict any use of the information to criminally investigate or prosecute any alcohol or drug abuse patient.[facility] FoundationIn the event this information is protected by the Federal Confidentiality of Alcohol and Drug Abuse Patient Records regulations: The Federal rules restrict any use of the information to criminally investigate or prosecute any alcohol or drug abuse patient.[facility] FoundationIn the event this information is protected by the Federal Confidentiality of Alcohol and Drug Abuse Patient Records regulations: The Federal rules restrict any use of the information to criminally investigate or prosecute any alcohol or drug abuse patient.[facility] FoundationIn the event this information is protected by the Federal Confidentiality of Alcohol and Drug Abuse Patient Records regulations: The Federal rules restrict any use of the information to criminally investigate or prosecute any alcohol or drug abuse patient.[facility] FoundationIn the event this information is protected by the Federal Confidentiality of Alcohol and Drug Abuse Patient Records regulations: The Federal rules restrict any use of the information to criminally investigate or prosecute any alcohol or drug abuse patient.[facility] FoundationIn the event this information is protected by the Federal Confidentiality of Alcohol and Drug Abuse Patient Records regulations: The Federal rules restrict any use of the information to criminally investigate or prosecute any alcohol or drug abuse patient.[facility] FoundationIn the event this information is protected by the Federal Confidentiality of Alcohol and Drug Abuse Patient Records regulations: The Federal rules restrict any use of the information to criminally investigate or prosecute any alcohol or drug abuse patient.[facility] FoundationIn the event this information is protected by the Federal Confidentiality of Alcohol and Drug Abuse Patient Records regulations: The Federal rules restrict any use of the information to criminally investigate or prosecute any alcohol or drug abuse patient.[facility] FoundationIn the event this information is protected by the Federal Confidentiality of Alcohol and Drug Abuse Patient Records regulations: The Federal rules restrict any use of the information to criminally investigate or prosecute any alcohol or drug abuse patient.[facility] FoundationIn the event this information is protected by the Federal Confidentiality of Alcohol and Drug Abuse Patient Records regulations: The Federal rules restrict any use of the information to criminally investigate or prosecute any alcohol or drug abuse patient.[facility] FoundationIn the event this information is protected by the Federal Confidentiality of Alcohol and Drug Abuse Patient Records regulations: The Federal rules restrict any use of the information to criminally investigate or prosecute any alcohol or drug abuse patient.[facility] FoundationIn the event this information is protected by the Federal Confidentiality of Alcohol and Drug Abuse Patient Records regulations: The Federal rules restrict any use of the information to criminally investigate or prosecute any alcohol or drug abuse patient.[facility] FoundationIn the event this information is protected by the Federal Confidentiality of Alcohol and Drug Abuse Patient Records regulations: The Federal rules restrict any use of the information to criminally investigate or prosecute any alcohol or drug abuse patient.[facility] FoundationIn the event this information is protected by the Federal Confidentiality of Alcohol and Drug Abuse Patient Records regulations: The Federal rules restrict any use of the information to criminally investigate or prosecute any alcohol or drug abuse patient.[facility] FoundationIn the event this information is protected by the Federal Confidentiality of Alcohol and Drug Abuse Patient Records regulations: The Federal rules restrict any use of the information to criminally investigate or prosecute any alcohol or drug abuse patient.[facility] FoundationIn the event this information is protected by the Federal Confidentiality of Alcohol and Drug Abuse Patient Records regulations: The Federal rules restrict any use of the information to criminally investigate or prosecute any alcohol or drug abuse patient.[facility] FoundationIn the event this information is protected by the Federal Confidentiality of Alcohol and Drug Abuse Patient Records regulations: The Federal rules restrict any use of the information to criminally investigate or prosecute any alcohol or drug abuse patient.[facility] FoundationIn the event this information is protected by the Federal Confidentiality of Alcohol and Drug Abuse Patient Records regulations: The Federal rules restrict any use of the information to criminally investigate or prosecute any alcohol or drug abuse patient.[facility] FoundationIn the event this information is protected by the Federal Confidentiality of Alcohol and Drug Abuse Patient Records regulations: The Federal rules restrict any use of the information to criminally investigate or prosecute any alcohol or drug abuse patient.[facility] FoundationIn the event this information is protected by the Federal Confidentiality of Alcohol and Drug Abuse Patient Records regulations: The Federal rules restrict any use of the information to criminally investigate or prosecute any alcohol or drug abuse patient.[facility] FoundationIn the event this information is protected by the Federal Confidentiality of Alcohol and Drug Abuse Patient Records regulations: The Federal rules restrict any use of the information to criminally investigate or prosecute any alcohol or drug abuse patient.[facility] FoundationIn the event this information is protected by the Federal Confidentiality of Alcohol and Drug Abuse Patient Records regulations: The Federal rules restrict any use of the information to criminally investigate or prosecute any alcohol or drug abuse patient.[facility] FoundationIn the event this information is protected by the Federal Confidentiality of Alcohol and Drug Abuse Patient Records regulations: The Federal rules restrict any use of the information to criminally investigate or prosecute any alcohol or drug abuse patient.[facility] FoundationIn the event this information is protected by the Federal Confidentiality of Alcohol and Drug Abuse Patient Records regulations: The Federal rules restrict any use of the information to criminally investigate or prosecute any alcohol or drug abuse patient.[facility] FoundationIn the event this information is protected by the Federal Confidentiality of Alcohol and Drug Abuse Patient Records regulations: The Federal rules restrict any use of the information to criminally investigate or prosecute any alcohol or drug abuse patient.[facility] FoundationIn the event this information is protected by the Federal Confidentiality of Alcohol and Drug Abuse Patient Records regulations: The Federal rules restrict any use of the information to criminally investigate or prosecute any alcohol or drug abuse patient.[facility] FoundationIn the event this information is protected by the Federal Confidentiality of Alcohol and Drug Abuse Patient Records regulations: The Federal rules restrict any use of the information to criminally investigate or prosecute any alcohol or drug abuse patient.[facility] FoundationIn the event this information is protected by the Federal Confidentiality of Alcohol and Drug Abuse Patient Records regulations: The Federal rules restrict any use of the information to criminally investigate or prosecute any alcohol or drug abuse patient.[facility] FoundationIn the event this information is protected by the Federal Confidentiality of Alcohol and Drug Abuse Patient Records regulations: The Federal rules restrict any use of the information to criminally investigate or prosecute any alcohol or drug abuse patient.[facility] FoundationIn the event this information is protected by the Federal Confidentiality of Alcohol and Drug Abuse Patient Records regulations: The Federal rules restrict any use of the information to criminally investigate or prosecute any alcohol or drug abuse patient.[facility] FoundationIn the event this information is protected by the Federal Confidentiality of Alcohol and Drug Abuse Patient Records regulations: The Federal rules restrict any use of the information to criminally investigate or prosecute any alcohol or drug abuse patient.[facility] FoundationIn the event this information is protected by the Federal Confidentiality of Alcohol and Drug Abuse Patient Records regulations: The Federal rules restrict any use of the information to criminally investigate or prosecute any alcohol or drug abuse patient.[facility] FoundationIn the event this information is protected by the Federal Confidentiality of Alcohol and Drug Abuse Patient Records regulations: The Federal rules restrict any use of the information to criminally investigate or prosecute any alcohol or drug abuse patient.[facility] Reason for Visit (unrecogniz ed section and [...] NEW HIGH MDM 60-74 MINUTES Ivory Espinoza, CYBERATHLETE.REGISTER CLERK [address] [place] [address] Referral ID Status Reason Start Date Expiration Date Visits Requested Visits Authorized [id number] Pending Review PCP Requested Referral 06/28/2022 06/28/2023 [...] Has not started new med change- see OwnerListens message 07/20 Reason Comments Hypertension Reason Comments b/p elavation in er Reason Comments Refill Request Reason Comments Follow Up Hypertension Reason Comments URI X2 weeks Reason Comments Consult Specialty Diagnoses / Procedures Referred By Gabriel birmingham Referred To Contact Nephrology Diagnoses Resistant hypertension Procedures CONSULT TO NEPHROLOGY OFFICE/OUTPATIENT NEW HIGH MDM 60 MINUTES Ivory Espinoza, CYBERATHLETE.REGISTER CLERK [address] [place] [address] Phone: tel: fax: Referral ID Status Reason Start Date Expiration Date V isits Requested Visits Authorized [id number] Closed PCP Requested Referral 08/31/2024 08/31/2025 1 1 Reason Comments BP Check Was in ER 10/12 for l ow potassium and sodium Reason Onset Date Comments Results 10/14/2024 Reason Onset Date Comments Results 10/08/2024 Reason Comments Appointment Orders Reason Comments Follow Up Reason Comments Insurance Authorization PRIOR AUTH MELVA NOLATONE 25 MG Care Teams (unrecognized sec tion and content) Physiognomist Relationship Specialty Start Date End Date Monet, Brandon L, DO [address] [place] [address] PCP - General Family Practice 08/23/15 Physiognomist Relationship Specialty Start Date End Date Brandon Monet, DO [address] [place] [address] PCP - General Family Medicine 08/23/15 Physiognomist Relationship Specialty Start Date End Date Brandon Monet, DO [address] [place] [address] PCP - General Family Medicine 08/23/15 Physiognomist Relationship Specialty Start Date End Date Brandon Monet, DO [address] [place] [address] PCP - General Family Medicine 08/23/15 Physiognomist Relationship Specialty Start Date End Date Brandon Monet, DO [address] [place] [address] PCP - General Family Medicine 08/23/15 Physiognomist Relationship Specialty Start Date End Date Brandon Monet DO [address] [place] [address] PCP - General Family Medicine 08/23/15 Physiognomist Relationship Specialty Start Date End Date Brandon Monet DO [address] [place] [address] PCP - General Family Medicine 08/23/15 Physiognomist Relationship Specialty Start Date End Date Brandon Monet DO [address] [place] [address] PCP - General Family Medicine 08/23/15 Team Status: Active Member Role Status Dates Dr. Brandon Monet , DO Family Provider Active Dr. Brandon Monet , DO Primary Care Provider Active Team Status: Inactive Member Role Status Dates Dr. Brandon Monet , DO Primary Care Provider Active Ivory Espinoza DATA CONTROL ASSISTANT, DATA CONTROL ASSISTANT-C Attending Provider, Referisaiah g Provider Active Physiognomist Relationship Specialty Start Date End Date Brandon Monet DO [address] [place] [address] PCP - General Family Medicine 08/23/15 Physiognomist Relationship Specialty Start Date End Date Brandon Monet DO [address] [place] [address] PCP - General Family Medicine 08/23/15 Physiognomist Relationship Specialty Start Date End Date Brandon Monet DO [address] [place] [address] PCP - General Family Medicine 08/23/15 Physiognomist Relationship Specialty Start Date End Date Brandon Monet DO [address] [place] [address] PCP - General Family Medicine 08/23/15 Physiognomist Relationship Specialty Start Date End Date Brandon Monet DO [address] [place] [address] PCP - General Family Medicine 08/23/15 Physiognomist Relationship Specialty Start Date End Date Brandon Monet DO [address] [place] [address] PCP - General Family Medicine 08/23/15 Physiognomist Relationship Specialty Start Date End Date Brandon Monet DO [address] [place] [address] PCP - General Family Medicine 08/23/15 Physiognomist Relationship Specialty Start Date End Date Brandon Monet DO [address] [place] [address] PCP - General Family Medicine 08/23/15 Physiognomist Relationship Specialty Start Date End Date Brandon Monet, [address] [place] [address] PCP - General Family Medicine 08/23/15 Physiognomist Relationship Specialty Start Date End Date Brandon Monet DO [address] [place] [address] PCP - General Family Medicine 08/23/15 Physiognomist Relationship Specialty Start Date End Date Brandon Monet DO [address] [place] [address] PCP - General Family Medicine 08/23/15 Physiognomist Relationship Specialty Start Date End Date Brandon Monet DO [address] [place] [address] PCP - General Family Medicine 08/23/15 Physiognomist Relationship Specialty Start Date End Date Brandon Monet DO [address] [place] [address] PCP - General Family Medicine 08/23/15 Physiognomist Relationship Specialty Start Date End Date Brandon Monet DO [address] [place] [address] PCP - General Family Medicine 08/23/15 Iza Simms, CYBERATHLETE.REGISTER CLERK [address] [place] [address] [facility] Family [facility] 06/27/24 Ivory Espinoza, CYBERATHLETE.REGISTER CLERK [address] [place] [address] [facility] 06/27/24 Physiognomist Relationship Specialty Start Date End Date Brandon Monet DO [address] [facility] [address] PCP - General Family Medicine 08/23/15 Iza Simms, CYBERATHLETE.REGISTER CLERK [address] [place] [address] [facility], CYBERATHLETE.REGISTER CLERK [address] [facility] [place] [address] [facility] 06/27/24 Physiognomist Relationship Specialty Start Date End Date Brandon Monet DO [address] [place] [address] PCP - General Family Medicine 08/23/15 Iza Simms, CYBERATHLETE.REGISTER CLERK [address] [place] [address] [facility] 06/27/24 Ivory Espinoza, CYBERATHLETE.REGISTER CLERK [address] [facility] [place] [place] [address] [facility] 06/27/24 Physiognomist Relationship Specialty Start Date End Date Brandon Monet DO [address] [place] [address] PCP - General Family Medicine 08/23/15 Iza Simms, CYBERATHLETE.REGISTER CLERK [address] [place] [address] [facility] 06/27/24 Meenakshi Espinozaekah, CYBERATHLETE.REGISTER CLERK [address] [place] [address] [facility] 06/[facility]/24 Physiognomist Relationship Specialty Start Date End Date Brandon Monet DO [address] [place] [address] PCP - General Family Medicine 08/23/15 Iza Simms, CYBERATHLETE.REGISTER CLERK [address] [place] [address] [facility] 06/[facility]/24 [facility], CYBERATHLETE.REGISTER CLERK [address] [place] [address] [facility] 06/[facility]/24 Physiognomist Relationship Specialty Start Date End Date Brandon Monet DO [address] [place] [address] PCP - General Family Medicine 08/23/15 Iza Simms, CYBERATHLETE.REGISTER CLERK [address] [place] [address] [facility] 06/[facility]/24 [facility], CYBERATHLETE.REGISTER CLERK [address] [place] [address] [facility] 06/27/24 Physiognomist Relationship Specialty Start Date End Date Brandon Monet DO [address] [facility] [place] [address] PCP - General Family Medicine 08/23/15 Iza Simms, CYBERATHLETE.REGISTER CLERK [address] [place] [address] [facility] 06/27/24 Ivory Espinoza APRN.REGISTER CLERK [address] [place] [address] Hack [employer] [facility] 06/27/24 Physiognomist Relationship Specialty Start Date End Date Brandon Monet DO [address] [place] [address] PCP - General Family Medicine 08/23/15 Iza Simms, CYBERATHLETE.REGISTER CLERK [address] [place] [address] [employer] [facility] 06/27/24 Ivory Espinoza, CYBERATHLETE.REGISTER CLERK [address] [place] [address] [facility] Physiognomist Relationship Specialty Start Date End Date Brandon Monet DO [address] [place] [address] PCP - General Family Medicine 08/23/15 Iza Simms, CYBERATHLETE.REGISTER CLERK [address] [place] [address] [facility] Ivory Espinoza, CYBERATHLETE.REGISTER CLERK [address] [place] [address] [facility] 06[facility] Physiognomist Relationship Specialty Start Date End Date Brandon Monet DO [address] [place] [address] PCP - General Family Medicine 08/23/15 Iza Simms, CYBERATHLETE.REGISTER CLERK [address] [place] [address] [employer] [facility] 06/27/24 AlexisIvory, CYBERATHLETE.REGISTER CLERK [address] [facility] [place] [address] [facility] Physiognomist Relationship Specialty Start Date End Date Brandon Monet DO [address] [place] [address] PCP - General Family Medicine 08/23/15 Ivory Espinoza, CYBERATHLETE.REGISTER CLERK [address] [facility] [place] [place] [address] [facility] 06[facility] Physiognomist Relationship Specialty Start Date End Date Brandon Monet DO [address] [place] [address] PCP - General Family Medicine 08/23/15 Ivory Espinoza, CYBERATHLETE.REGISTER CLERK [address] [place] [address] [facility] 06/27/24 Physiognomist Relationship Specialty Start Date End Date Brandon Monet DO [address] [facility] [place] [address] PCP - General Family Medicine 08/23/15 Ivory Espinoza, CYBERATHLETE.REGISTER CLERK [address] [facility] [place] [address] [facility] 06/[facility] Physiognomist Relationship Specialty Start Date End Date Brandon Monet DO [address] [place] [address] PCP - General [facility] 08/23/15 AlexisIvory, CYBERATHLETE.REGISTER CLERK [address] [place] [address] [facility] 06/[facility] Physiognomist Relationship Specialty Start Date End Date Brandon Monet DO [address] [place] [address] PCP - [facility] 08/23/15 AlexisIvory, CYBERATHLETE.REGISTER CLERK [address] [place] [address] [facility] Team Status: Active Member Role [...] October 08, 2024 End: October 09, 2024 Physiognomist Relationship Specialty Start Date End Date Brandon Mnoet DO [address] [place] [address] PCP - General Family Medicine 08/23/15 AlexisIvory, CYBERATHLETE.REGISTER CLERK [address] [place] [address] [employer] Driver [facility] 06/27/24 Physiognomist Relationship Specialty Start Date End Date Brandon Monet DO [address] [place] [address] PCP - General Family Medicine 08/23/15 Iza Simms, CYBERATHLETE.REGISTER CLERK [address] [place] [address] [employer] [facility] 06/27/24 10/08/24 AlexisIvory, CYBERATHLETE.REGISTER CLERK [address] [place] [address] [facility] Physiognomist Relationship Specialty Start Date End Date Brandon Monet DO [address] [place] [address] PCP - General Family Medicine 08/23/15 Ivory Espinoza, CYBERATHLETE.REGISTER CLERK [address] [place] [address] [facility] [employer] [facility] 06/27/24 Physiognomist Relationship Specialty Start Date End Date Brandon Monet DO [address] [place] [address] PCP - General Family Medicine 08/23/15 Iza Simms, CYBERATHLETE.REGISTER CLERK [address] [place] [address] [facility] 06/27/24 10/08/24 Ivory Espinoza, CYBERATHLETE.REGISTER CLERK [address] [place] [address] [employer] [facility] 06/27/24 Physiognomist Relationship Specialty Start Date End Date Brandon Monet DO [address] [place] [address] PCP - General Family Medicine 08/23/15 Ivory Espinoza, CYBERATHLETE.REGISTER CLERK [address] [place] [address] [employer] [facility] 06/27/24 Physiognomist Relationship Specialty Start Date End Date Brandon Monet DO [address] [place] [address] PCP - General Family Medicine 08/23/15 Ivory Espinoza, CYBERATHLETE.REGISTER CLERK [address] [place] [address] [employer] [facility] 06/27/24 Janeth Fraire, CYBERATHLETE.REGISTER CLERK [address] [place] [address] [employer] [facility] 01/03/25 Physiognomist Relationship Specialty Start Date End Date Brandon Monet DO [address] [place] [address] PCP - General Family Medicine 08/23/15 AlexisIvory, CYBERATHLETE.REGISTER CLERK [address] [place] [address] [facility] 06/27/24 Janeth Fraire, CYBERATHLETE.REGISTER CLERK [address] [place] [address] [employer] [facility] 01/03/25 Physiognomist Relationship Specialty Start Date End Date Brandon Monet DO [address] [place] [address] PCP - General Family Medicine 08/23/15 AlexisIvory, CYBERATHLETE.REGISTER CLERK [address] [place] [address] [employer] [facility] 06/27/24 Janeth Fraire, CYBERATHLETE.REGISTER CLERK [address] [place] [address] [employer] [facility] 01/03/25 Physiognomist Relationship Specialty Start Date End Date Brandon Monet DO [address] [place] [address] PCP - General Family Medicine 08/23/15 AlexisIvory, CYBERATHLETE.REGISTER CLERK [address] [place] [address] [facility] 06/27/24 Janeth Fraire APRN.[facility] [address] [place], [place] [id number] [facility] 01/03/25 INFORMATION SOURCE (unrecogn ized section and content) DATE CREATED AUTHOR 09/05/2022 [facility] DATE CREATED AUTHOR AUTHOR'S ORGANIZ ATION 08/30/2024 [facility] DATE CREATED AUTHOR AUTHOR'S ORGANIZ ATION 02/05/2025 [facility] DATE CREATED AUTHOR AUTHOR'S ORGANIZ ATION 03/25/2025 [facility] DATE CREATED AUTHOR AUTHOR'S ORGANIZ ATION 04/09/2025 [facility] FOR RECORDS PERTAINING TO PATIENTS WHO ARE [...] BE BASED ON THE PRIMARY CLINICAL RECORDS. [employer] provides no warranty or guarantee of the accuracy or completeness of information in this document.
== END | disposition home or self-care (01) ==
LOC: OPBI 15:58
PROVIDERS: PCP Student in an Organized Health Care Education/Training Program
DX: Z12.31 Encounter for screening mammogram for malignant neoplasm of breast (principal)
CPT/HCPCS: 77063; 77067